=== PATIENT | male | born 1950 | race Caucasian/White ===

== ENCOUNTER → 2023-07-20 07:09 | Outpatient (REF) | payer MEDICARE, OTHER, SELFPAY ==
[2023-07-20 10:15] LABS: ALT (SGPT) 20 U/L (0-50); AST (SGOT) 24 U/L (17-59); Albumin 3.8 g/dl (3.5-5.0); Alkaline Phosphatase 112 U/L (38-126); Blood Urea Nitrogen 35 mg/dl (9-20); Carbon Dioxide 24 mmol/L (22-30); Chloride 104 mmol/L (98-107); Glucose 98 mg/dl (70-99); HDL Cholesterol 41 mg/dl; LDL Cholesterol, Calculated 34 mg/dl; Potassium 4.8 mmol/L (3.5-5.1); Sodium 138 mmol/L (135-145); Total Bilirubin 1.1 mg/dl (0.2-1.3); Total Cholesterol 92 mg/dl (50-199); Total Protein 7.3 g/dl (6.3-8.2); Triglyceride 87 mg/dl (10-149); Very Low Density Lipoprotein 17 mg/dl (0-30); eGFR 48.55
[2023-07-20 10:52] LABS: TSH 2.43 uIU/ml (0.47-4.68)
[2023-07-20 10:57] LABS: Microalbumin, Random Urine 31.1 mg/dl (0.6-1.7); Microalbumin/creatinine Ratio 202.7 mg/g
[2023-07-22 07:03] LABS: Fructosamine 272 umol/L (205-285)
== END ==
LOC: HWLAB 07:09
PROVIDERS: ATTENDING PHYSICIAN Internal Medicine; FAMILY PHYSICIAN Physician Assistant Medical
DX: E55.9 Vitamin D deficiency, unspecified (principal); E22.1 Hyperprolactinemia; Z79.4 Long term (current) use of insulin; E11.9 Type 2 diabetes mellitus without complications
CPT/HCPCS: 36415; 80053; 80061; 82043; 82306; 82570; 82985; 83036; 84443

== ENCOUNTER → 2023-08-31 10:46 | Outpatient (REF) | payer MEDICARE, OTHER, SELFPAY | LOC: RAD 10:46 | PROVIDERS: ATTENDING PHYSICIAN Surgery Vascular Surgery; FAMILY PHYSICIAN Physician Assistant Medical | DX: I73.9 Peripheral vascular disease, unspecified (principal) | CPT/HCPCS: 93922; 93925 ==

== ENCOUNTER → 2023-09-05 10:36 | Outpatient (REF) | payer MEDICARE, OTHER, SELFPAY ==
[2023-09-05 12:00] LABS: Urine Albumin 1+ (Neg - Trace); Urine Bilirubin Negative (Negative); Urine Character Clear (Clear); Urine Color Yellow; Urine Glucose Negative (Negative); Urine Ketone Negative (Negative); Urine Leukocyte 2+ (Negative); Urine Nitrite Negative (Negative); Urine Occult Blood Negative (Negative); Urine Urobilinogen Negative (Neg - 1+); Urine pH 6.5 (5.0-9.0)
[2023-09-05 12:16] LABS: Blood Urea Nitrogen 40 mg/dl (9-20); Calcium 9.5 mg/dl (8.4-10.2); Carbon Dioxide 26 mmol/L (22-30); Chloride 101 mmol/L (98-107); Glucose 142 mg/dl (70-99); Phosphorus 4.1 mg/dl (2.5-4.5); Potassium 5.1 mmol/L (3.5-5.1); Sodium 138 mmol/L (135-145); eGFR 52.74
[2023-09-05 12:37] LABS: Urine Bacteria Few (Negative); Urine Red Blood Cell 0-2 /HPF (0-2)
[2023-09-05 12:39] LABS: Urine Amorphous Seen
[2023-09-05 13:32] LABS: Protein/creatinine Ratio 0.8; Urine Protein 85 mg/dl
[2023-09-06 09:45] LABS: Intact PTH 21.3 pg/ml (13.6-85.8)
== END ==
LOC: HWLAB 10:36
PROVIDERS: ATTENDING PHYSICIAN Specialist; FAMILY PHYSICIAN Physician Assistant Medical
DX: E78.2 Mixed hyperlipidemia (principal); E78.5 Hyperlipidemia, unspecified; I10 Essential (primary) hypertension; D64.9 Anemia, unspecified
CPT/HCPCS: 36415; 80048; 81003; 81015; 82570; 83970; 84100; 84156

== ENCOUNTER 2023-09-06 05:51 | Day surgery (SDC) | payer MEDICARE, OTHER, SELFPAY ==
[2023-09-06] VITALS (27 sets, daily range): BP systolic 88–123; BP diastolic 50–88; BMI 40.0
[2023-09-06] MEDS: NSS 500 IV (06:45)
--- NOTE | 2023-09-06 06:58 | W.SUR.PREOP ---
Pre-Operative Surgical Note
-
I have examined this patient prior to the performance of the scheduled procedure.
The patient's condition is unchanged from the time of the current History and
Physical and the patient is able to undergo the scheduled procedure.
[2023-09-06 07:00] LABS: Glucose - Point of Care 167 mg/dl (70-99)
[2023-09-06 07:01] LABS: Hematocrit 35.1 % (39.0-52.0); Hemoglobin 11.5 g/dL (13.0-18.0); Mean Corp Hgb Conc. 32.8 g/dL (33.0-37.0); Mean Corpuscular Hgb 27.1 pg (27.0-31.0); Mean Corpuscular Volume 82.8 fL (80.0-94.0); Mean Platelet Volume 10.1 fL (7.4-10.4); Platelet Count 258 10^3/uL (130-400); Red Blood Cell Count 4.24 10^6/uL (4.70-6.10); White Blood Cell Count 11.6 10^3/uL (4.8-10.8)
--- NOTE | 2023-09-06 07:10 | PTCARENOTE ---
Pt is here for LLE arteriogram. Pt's pulse ox is 86-92% on room air while laying comfortably in stretcher. Pt's lungs are clear. Pt denies SOB. No respiratory distress noted. Dr Castillo made aware. No further treatment ordered at this time. Awaiting to
be seen by anesthesia. Will continue to monitor.
[2023-09-06 07:12] LABS: INR 1.45; PT 17.5 Sec (11.4-14.6)
[2023-09-06 07:13] LABS: APTT 39.5 Sec (23.4-35.0)
[2023-09-06 07:14] LABS: Blood Urea Nitrogen 40 mg/dl (9-20); Calcium 9.2 mg/dl (8.4-10.2); Carbon Dioxide 25 mmol/L (22-30); Chloride 102 mmol/L (98-107); Estimated Creatinine Clearance 59 ml/min; Glucose 161 mg/dl (70-99); Potassium 4.8 mmol/L (3.5-5.1); Sodium 138 mmol/L (135-145); eGFR 57.65
--- NOTE | 2023-09-06 07:31 | PTCARENOTE ---
Dr Liu also made aware of pt's pulse ox dropping in to 80's. Dr Liu at pt bedside and spoke/assessed pt. No further treatment ordered at this time. Will continue to monitor.
--- NOTE | 2023-09-06 08:58 | W.SUR.POST ---
Surgical Immediate Post Op
Note
Pre Op Diagnosis: PAD and nonhealing wound
Post Op Diagnosis: PAD and nonhealing wound
Procedure Performed: Left lower extremity arteriogram with angioplasty and stent to SFA and angioplasty to PT
Primary Surgeon: Cash Castillo MD
Secondary Surgeons: N/A
Anesthesia: MAC
Estimated Blood Loss: Less than 2 mL
Fluids: See anesthesia flowsheet
Drains/Shunts: N/A
Specimens/Cultures: N/A
Doppler/Duplex/Angio (Y/N): Y
Complications: None
Operative Findings: Doppler signal to left DP and PT
[2023-09-06 09:43] LABS: Glucose - Point of Care 174 mg/dl (70-99)
--- NOTE | 2023-09-06 09:58 | OR.RPT ---
Operative Report
Operative Report
PROCEDURE DATE: 09/06/2023
Preoperative diagnosis: Peripheral arterial disease with left first toe significant ulceration/tissue loss.
Postoperative diagnosis: Same
Procedure:
1. Duplex assisted right common femoral artery cannulation.
2. Aortogram and pelvic angiogram.
3. Left lower extremity arteriogram with third order vessel catheterization of left posterior tibial artery via right common femoral artery puncture.
4. Balloon angioplasty and stent placement with Invidiolver PTX overlapping stents 6 mm x 140 mm and 6 mm x 40 mm left superficial femoral artery.
5. Balloon angioplasty of left posterior tibial artery.
6. Right femoral angiogram.
7. Supervision and interpretation.
Surgeon: Jonathan
Marketing Director Assisted Living: None
Complications: None
Anesthesia: Local, sedation
Fluoroscopy:
13.4 min
274 mGy
56.95 Gy.cm2
Indications for procedure:
As noted above patient with left first toe significant ulceration/tissue loss. At the time of the procedure it was noted to be making strides towards healing. However given findings suggestive of peripheral arterial disease, we recommended
continuing with angiogram as initially recommended. Risk/benefits/alternatives all fully discussed prior. He understood all wish to proceed.
Description of procedure:
Patient was identified, brought to the operating room. Placed on the table in the supine position. After the adequate administration of anesthesia, the patient was prepped and draped in the standard surgical fashion. A standard preoperative
timeout was undertaken and everybody was in agreement with the plan.
The right common femoral artery was accessed with a micropuncture kit under direct duplex ultrasound guidance. Note based on his habitus it was quite a distance to the artery in terms of depth. A 5 [place] sheath was then advanced over a 0.035 inch
wire, and a dior's hook catheter was advanced into the abdominal aorta. Aortogram and pelvic angiogram was obtained. Findings as follows:
Patent infrarenal aorta and bilateral common and external iliac arteries without any evidence of significant stenosis. Moderate calcified plaque eccentrically noted throughout these vessels.
Using a floppy angled hydrophilic wire, the left common femoral artery was cannulated and the catheter was advanced. Left lower extremity arteriogram was obtained. Findings as follows:
Common femoral artery: Patent with no significant stenosis but diffuse eccentric calcified plaque.
Profunda femoris artery: Patent with no significant stenosis, but eccentric plaque noted.
Superficial femoral artery: Patent with no significant stenosis proximally, but diffuse eccentric plaque noted. In the mid to distal segment there was heavy bulky calcified plaque with opacity noted. The mid segment was the most pronounced. There
appeared to be significant stenosis in this vicinity. At the very distal SFA proximal to the transition to the above-knee popliteal artery there was more normalization of the caliber of the vessel and the appearance.
Popliteal artery: Moderate opacity with popcorn like plaques but no definitive high-grade stenosis.
Anterior tibial artery: Severely diseased throughout its course. Slow filling. Generally diminutive and areas of severe stenosis or occlusion in the midsegment and then again more distally. Cross the ankle to become the dorsalis pedis, but the
diseased small calcified dorsalis pedis noted.
Tibial peroneal trunk: Patent with no significant stenosis.
Peroneal artery: Chronically occluded, trickle flow in some segments.
Posterior tibial artery: Patent, somewhat small in size due to heavy calcification. 1 focal area in the proximal third of the vessel with severe focal stenosis/focal occlusion. Patent to the ankle where it crossed the ankle and gave rise to the
plantar branches but these were very diseased branches. General perfusion to the toes was very limited from both the dorsalis pedis and posterior tibial/plantar branches.
At this point I selectively cannulated the left superficial femoral artery and then exchanged for a 6 [place] up and over sheath over a Storq wire. The patient was given a total of 9000 units of intravenous heparin. Next under roadmap assisted
guidance I traverse the area of severe SFA stenosis/plaque in the mid to distal segment. I then exchanged back for my Storq wire and then primarily stented that region using a 6 mm x 140 mm, and then a 6 mm x 40 mm overlapping Zilver PTX
drug-eluting self-expanding stent. These were post angioplastied with a 5 mm balloons. Completion angiogram demonstrated an excellent result. Next, again using roadmap assistance, is able to selectively cannulate the right posterior tibial
artery. I did this with a 0.014 inch echo steerable wire. Next, also under roadmap guidance I was able to traverse the area of severe stenosis/occlusion focally. I then performed balloon angioplasty of the stenotic area with a 2 mm x 4 cm
standard angioplasty balloon. Completion angiogram demonstrated excellent result with no residual stenosis in that segment. Preserve flow in the runoff. At this point I was satisfied. Though there was disease in the anterior tibial, I felt that
it was diffusely diseased and likely not as effective to try to angioplasty that thoroughly. In addition since he was making strides towards healing the toe wound (had made significant progress and was nearly healed at the time of the angiography),
I felt that being overly aggressive may carry more risk. Therefore I did not attempt to treat the anterior tibial artery. Over a 0.035 inch wire the sheath was withdrawn to the right external iliac artery. Right femoral angiogram demonstrated
good puncture in the right common femoral artery. At this point I tried to advance a Pro-glide percutaneous suture to seal the puncture site. However I could not advance a Pro-glide due to the depth of puncture in his artery the Pro-glide Kinking
at the entry site of the artery. I could not advance it to the appropriate degree. I tried even advancing it over the wire but that did not work as well. Therefore at this point I exchanged back for a 6 [place] sheath. The wires and introducer of
the sheath were withdrawn. The patient was given some protamine to reverse the heparin and the sheath was withdrawn and manual pressure was applied. Hemostasis was achieved. The patient tolerated procedure well. He had dopplerable DP and PT
signals upon completion.
The patient tolerated procedure well.
[2023-09-06] MEDS: ASPIR LOW (ENTERIC COATED) 81 MG PO (10:44)
[2023-09-06] MEDS: NSS 1000 IV (10:46)
[2023-09-06 12:33] LABS: Glucose - Point of Care 145 mg/dl (70-99)
== END 2023-09-06 15:35 | disposition home or self-care (01) ==
LOC: CATH 05:51
PROVIDERS: ATTENDING PHYSICIAN Surgery Vascular Surgery; FAMILY PHYSICIAN Physician Assistant Medical
DX: I70.245 Atherosclerosis of native arteries of left leg with ulceration of other part of foot (principal); L97.529 Non-pressure chronic ulcer of other part of left foot with unspecified severity; I73.9 Peripheral vascular disease, unspecified; Z79.01 Long term (current) use of anticoagulants; I10 Essential (primary) hypertension; I25.2 Old myocardial infarction; Z86.73 Personal history of transient ischemic attack (TIA), and cerebral infarction without residual deficits; E78.00 Pure hypercholesterolemia, unspecified; E10.9 Type 1 diabetes mellitus without complications; Z79.4 Long term (current) use of insulin; I48.20 Chronic atrial fibrillation, unspecified; I25.10 Atherosclerotic heart disease of native coronary artery without angina pectoris; J44.9 Chronic obstructive pulmonary disease, unspecified; Z87.891 Personal history of nicotine dependence
CPT/HCPCS: 37226; 37228; 75625; 75716; 76937; 80048; 82962; 85027; 85610; 85730; 86850; 86900; 86901; C1725; C1760; C1769; C1874; C1887; C1894; Q9967

== ENCOUNTER 2023-09-10 12:28 | Inpatient (IN) | payer MEDICARE, OTHER, SELFPAY ==
[2023-09-10] VITALS (15 sets, daily range): BP systolic 112–168; BP diastolic 68–113; PULSE 2–92; BMI 42.4
--- NOTE | 2023-09-10 07:50 | ED.GENMED ---
History of Present Illness
<Nathaniel Bennett PA-C - Last Filed: 09/10/23 13:43>
General
Chief Complaint: Breathing Problem
Time Seen by Provider: 09/10/23 07:40
History of Present Illness
History of Present Illness:
72-year-old male with history of chronic atrial fibrillation on Eliquis, coronary artery disease/MD, hypertension, hyperlipidemia, COPD and insulin-dependent diabetes presents to the emergency department for evaluation of shortness of breath
beginning last night. Reports dyspnea on exertion as well as orthopnea. Noted to have oxygen saturation of 86% by EMS and placed on 4 L nasal cannula. He states he is improved on oxygen but still feels short of breath. Denies any associated
chest pain. Notes chills last night but denies fevers or night sweats. No coughing, nausea, or vomiting. He is 4 days status post left lower extremity arteriogram with balloon angioplasty and stent placement in the left superficial femoral artery
and balloon angioplasty of the left posterior tibial artery. He has resumed his blood thinners after that procedure.
Past History
<Nathaniel Bennett PA-C - Last Filed: 09/10/23 13:43>
Past History
ED Past Medical History: CAD, IDDM, Other (Spinal stenosis, IBS) and Other (Afib)
ED Past Surgical History: Orthopedic
Social History
Tobacco: Former smoker
Alcohol: Occasional
Drug: None
Personal:
Living: with family
Employment: Employed
Family History
Family History: Diabetes
Review of Systems
<Nathaniel Bennett PA-C - Last Filed: 09/10/23 13:43>
Review of Systems
Allergies reviewed?: Yes
All Other Systems: ROS reviewed and negative except as documented in HPI and ROS
Phy Exam
<Nathaniel Bennett PA-C - Last Filed: 09/10/23 13:43>
Physical Exam
Physical Exam:
GEN: Well appearing, NAD, WDWN
Eyes: PERRLA, EOMs intact, no scleral icterus
HENT: NCAT, oral mucosa moist
Lungs: Tachypneic with conversational dyspnea while on oxygen
Cardiac: Irregular and tachycardic
Abdomen: S, NT, ND, NABS, no masses or hepatosplenomegaly
Neuro: AO x 3
MSK: No gross deformity or ecchymosis. No edema. No digital clubbing
Skin: No rashes, petechiae. Normal color, no pallor or jaundice.
Psych: Calm, cooperative, proper hygiene
Scores
<Nathaniel Bennett PA-C - Last Filed: 09/10/23 13:43>
Heart Failure Risk
Heart Failure Risk Score: Yes
History of Stroke or TIA: No
History of intubation for respiratory distress: No
Heart rate on ED arrival >/= 110: Yes
SaO2 <90% on arrival on room air: Yes
HR >/=110 during 3min walk test (or too ill to perform test): Yes
ECG has acute ischemic changes: No
Urea >/=12mmol/L (BUN 33.6mg/dL): No
Serum CO2>/=35mmol/L: No
Troponin I or T elevated to MD Level (0.4mg/dL): No
NT-proBNP >/=5,000ng/L (5,000pg/ml): No
HF Risk Score: 3
Admission Status: HIGH RISK 15.9% Consider SNF treatment or admission to hospital
Course
<Nathaniel Bennett PA-C - Last Filed: 09/10/23 13:43>
Orders/Labs/Results
Orders:
Orders
09/10/23 07:40
Electrocardiogram (*1) Urgent
Reason for Study: Shortness of Breath
09/10/23 07:41
EKG- Treatment ONCE
09/10/23 07:49
CR Chest - 2 Views Urgent
Comment:
Reason For Exam: SOB, hypoxia
09/10/23 07:53
CMP [Comprehensive Metabolic Panel] Urgent
COVID-19 Antigen Urgent
Source: Nasal Swab
Complete Blood Count/With Diff Urgent
NT-proBNP Urgent
Troponin I Urgent
Influenza A+B Rapid Molecular Urgent
MARIALUISA Source: Nasal Swab
Specimen Description:
09/10/23 08:19
PTT Routine
Prothrombin Time Routine
09/10/23 09:03
Furosemide [Lasix] 40 mg IV ONCE ONE
09/10/23 09:43
CARDIOLOGY CONSULT Routine
Consulting Provider: Alexander Mcintosh
Was physician already notified: Yes
Reason for consult: HFrEF exacerbation with hypoxia, needing BiPAP
09/10/23 Lunch
2200 calorie (18 carb) Diabetic
Fluid Restriction: 1920 mL/day (64 oz)
Diabetic Diet: Sodium, 2 Gram
09/10/23 10:53
Admit/Transfer Patient As Directed
Co-Sign Provider:
Level of Care: Inpatient admission
Assign to:: IMU- Intermediate Care
Physician / Group: Dr. Bhupinder Quiñones/Hospitalists
Diagnosis: Acute Hypoxic Respiratory Failure
Reason for Hospitalization: Acute Hypoxic Respiratory Failure
Expected length of stay greater than two midnights?: Yes
ELOS- Estimated Length of Stay in days: 3
I certify the patient meets the requirements for IP care: Yes
PULMONARY CONSULT Routine
Consulting Provider: Glo Argueta
Was physician already notified: Yes
Reason for consult: Acute Resp Failure, has COPD, sees [facility] pulm
09/10/23 10:56
Code Status As Directed
Resuscitation Status: Full Code
09/10/23 11:00
Dextrose 50%-Water [Dextrose 50% Syringe] 12.5 grams IV [id number] PRN
Glucagon [GlucaGen] 1 mg IM PRN PRN
Bedside Glucose Monitoring As Directed
Frequency: AC&HS
Additional Instructions:: Change to q6h if pt on TPN, tube feeding or not eating
09/10/23 11:01
WOUND/OSTOMY CONSULT Routine
Reason for Consult: Wound care for lower extremities
09/10/23 11:30
Insulin Aspart Corrective Low [Novolog Flexpen-Low Resistance] See Protocol SC AC
09/10/23 13:01
Albuterol [ProAIR HFA INHALER] 2 puff INH R Q6HPRN PRN
Bisacodyl [Dulcolax] 10 mg RECTAL U45PRIT PRN
Dicyclomine [Bentyl] 20 mg PO DAILYPRN PRN
Docusate W/Senna [Senokot-S] 1 tablet PO BIDPRN PRN
Polyethylene Glycol Powder [Miralax] 17 grams PO DAILYPRN PRN
09/10/23 13:01
Activity As Directed
Activity Level: As Tolerated
Intake/ Output As Directed
Frequency: q12h
Vital Signs As Directed
Frequency: Per unit guidelines
Weight As Directed
Frequency: Daily
O2 Therapy [RESP] Routine
Titrate/Wean O2 to maintain O2 sat greater than (%): 89
09/10/23 14:00
Troponin I Q6H
Lisinopril [Zestril] 5 mg PO NOON
Multivitamin [Theragran] 1 tablet PO NOON
09/10/23 16:00
Furosemide [Lasix] 40 mg IV BID AT 0800,1600
09/10/23 20:00
Troponin I Q6H
Apixaban [Eliquis] 5 mg PO BID
nystatin 1 applic TOPICAL BID
09/10/23 22:00
Famotidine [Pepcid] 20 mg PO HS
09/11/23 02:00
Troponin I Q6H
09/11/23 06:00
Complete Blood Count/With Diff IN AM
Comprehensive Metabolic Panel IN AM
Glycohemoglobin (HgbA1c) IN AM
Magnesium IN AM
09/11/23 08:00
Aspirin Low Dose EC [Aspir Low (Enteric Coated)] 81 mg PO DAILY
Atorvastatin [Lipitor] 20 mg PO DAILY
Bifidobacterium infantis [Align] 4 mg PO DAILY
Cholecalciferol (Vitamin D3) [VITAMIN D3 (cholecalciferol)] 25 mcg PO DAILY
Metoprolol Xl [Toprol Xl] 25 mg PO DAILY
umeclidinium-vilanterol [Anoro Ellipta] 1 inh INH DAILY
09/12/23 06:00
Complete Blood Count/With Diff IN AM
Comprehensive Metabolic Panel IN AM
09/13/23 06:00
Complete Blood Count/With Diff IN AM
Comprehensive Metabolic Panel IN AM
Abnormal Lab Results
09/10/23 09/10/23 09/10/23
07:53 08:19 12:05
WBC 12.1 H 10^3/uL
(4.8-10.8)
RBC 4.02 L 10^6/uL
(4.70-6.10)
Hgb 10.9 L g/dL
(13.0-18.0)
Hct 34.0 L %
(39.0-52.0)
MCHC 32.1 L g/dL
(33.0-37.0)
RDW 18.5 H %
(11.5-14.5)
MPV 10.6 H fL
(7.4-10.4)
Abs Immat Gran (auto) 0.1 H 10^3/uL
(0-0.05)
Absolute Neuts (auto) 9.8 H 10^3/uL
(1.4-6.5)
Neutrophils % 80.9 H %
(42.2-75.2)
Lymphocytes % 11.2 L %
(20.5-51.1)
PT 21.1 H Sec
(11.4-14.6)
APTT 38.4 H Sec
(23.4-35.0)
Carbon Dioxide 19 L mmol/L
(22-30)
BUN 36 H mg/dl
(9-20)
Glucose 204 H mg/dl
(70-99)
Total Bilirubin 1.4 H mg/dl
(0.2-1.3)
Alkaline Phosphatase 129 H U/L
(38-126)
POC Glucose 178 H mg/dl
(70-99)
09/10/23 07:53
09/10/23 07:53
Vital Signs
Initial and Last Documented VS:
Initial Vital Signs
Pulse Resp BP Pulse Ox
100 97 160/93 96
09/10/23 07:31 09/10/23 07:31 09/10/23 07:31 09/10/23 07:31
Last Documented Vital Signs
Pulse Resp BP Pulse Ox
76 21 149/113 99
09/10/23 12:15 09/10/23 12:15 09/10/23 12:00 09/10/23 12:15
<Hosea Lester MD - Last Filed: 09/10/23 10:02>
Orders/Labs/Results
Orders:
Orders
09/10/23 07:40
Electrocardiogram (*1) Urgent
Reason for Study: Shortness of Breath
09/10/23 07:41
EKG- Treatment ONCE
09/10/23 07:49
CR Chest - 2 Views Urgent
Comment:
Reason For Exam: SOB, hypoxia
09/10/23 07:53
CMP [Comprehensive Metabolic Panel] Urgent
COVID-19 Antigen Urgent
Source: Nasal Swab
Complete Blood Count/With Diff Urgent
NT-proBNP Urgent
Troponin I Urgent
Influenza A+B Rapid Molecular Urgent
MARIALUISA Source: Nasal Swab
Specimen Description:
09/10/23 08:19
PTT Routine
Prothrombin Time Routine
09/10/23 09:03
Furosemide [Lasix] 40 mg IV ONCE ONE
09/10/23 09:43
CARDIOLOGY CONSULT Routine
Consulting Provider: Alexander Mcintosh
Was physician already notified: Yes
Reason for consult: HFrEF exacerbation with hypoxia, needing BiPAP
09/10/23 Lunch
2200 calorie (18 carb) Diabetic
Fluid Restriction: 1920 mL/day (64 oz)
Diabetic Diet: Sodium, 2 Gram
09/10/23 10:53
Admit/Transfer Patient As Directed
Co-Sign Provider:
Level of Care: Inpatient admission
Assign to:: IMU- Intermediate Care
Physician / Group: Dr. Bhupinder Quiñones/Hospitalists
Diagnosis: Acute Hypoxic Respiratory Failure
Reason for Hospitalization: Acute Hypoxic Respiratory Failure
Expected length of stay greater than two midnights?: Yes
ELOS- Estimated Length of Stay in days: 3
I certify the patient meets the requirements for IP care: Yes
PULMONARY CONSULT Routine
Consulting Provider: Glo Argueta
Was physician already notified: Yes
Reason for consult: Acute Resp Failure, has COPD, sees [facility] pulm
09/10/23 10:56
Code Status As Directed
Resuscitation Status: Full Code
09/10/23 11:00
Dextrose 50%-Water [Dextrose 50% Syringe] 12.5 grams IV [id number] PRN
Glucagon [GlucaGen] 1 mg IM PRN PRN
Bedside Glucose Monitoring As Directed
Frequency: AC&HS
Additional Instructions:: Change to q6h if pt on TPN, tube feeding or not eating
09/10/23 11:01
WOUND/OSTOMY CONSULT Routine
Reason for Consult: Wound care for lower extremities
09/10/23 11:30
Insulin Aspart Corrective Low [Novolog Flexpen-Low Resistance] See Protocol SC AC
09/10/23 13:01
Albuterol [ProAIR HFA INHALER] 2 puff INH R Q6HPRN PRN
Bisacodyl [Dulcolax] 10 mg RECTAL [id number] PRN
Dicyclomine [Bentyl] 20 mg PO DAILYPRN PRN
Docusate W/Senna [Senokot-S] 1 tablet PO BIDPRN PRN
Polyethylene Glycol Powder [Miralax] 17 grams PO DAILYPRN PRN
09/10/23 13:01
Activity As Directed
Activity Level: As Tolerated
Intake/ Output As Directed
Frequency: q12h
Vital Signs As Directed
Frequency: Per unit guidelines
Weight As Directed
Frequency: Daily
O2 Therapy [RESP] Routine
Titrate/Wean O2 to maintain O2 sat greater than (%): 89
09/10/23 14:00
Troponin I Q6H
Lisinopril [Zestril] 5 mg PO NOON
Multivitamin [Theragran] 1 tablet PO NOON
09/10/23 16:00
Furosemide [Lasix] 40 mg IV BID AT 0800,1600
09/10/23 20:00
Troponin I Q6H
Apixaban [Eliquis] 5 mg PO BID
nystatin 1 applic TOPICAL BID
09/10/23 22:00
Famotidine [Pepcid] 20 mg PO HS
09/11/23 02:00
Troponin I Q6H
09/11/23 06:00
Complete Blood Count/With Diff IN AM
Comprehensive Metabolic Panel IN AM
Glycohemoglobin (HgbA1c) IN AM
Magnesium IN AM
09/11/23 08:00
Aspirin Low Dose EC [Aspir Low (Enteric Coated)] 81 mg PO DAILY
Atorvastatin [Lipitor] 20 mg PO DAILY
Bifidobacterium infantis [Align] 4 mg PO DAILY
Cholecalciferol (Vitamin D3) [VITAMIN D3 (cholecalciferol)] 25 mcg PO DAILY
Metoprolol Xl [Toprol Xl] 25 mg PO DAILY
umeclidinium-vilanterol [Anoro Ellipta] 1 inh INH DAILY
09/12/23 06:00
Complete Blood Count/With Diff IN AM
Comprehensive Metabolic Panel IN AM
09/13/23 06:00
Complete Blood Count/With Diff IN AM
Comprehensive Metabolic Panel IN AM
Abnormal Lab Results
09/10/23 09/10/23 09/10/23
07:53 08:19 12:05
WBC 12.1 H 10^3/uL
(4.8-10.8)
RBC 4.02 L 10^6/uL
(4.70-6.10)
Hgb 10.9 L g/dL
(13.0-18.0)
Hct 34.0 L %
(39.0-52.0)
MCHC 32.1 L g/dL
(33.0-37.0)
RDW 18.5 H %
(11.5-14.5)
MPV 10.6 H fL
(7.4-10.4)
Abs Immat Gran (auto) 0.1 H 10^3/uL
(0-0.05)
Absolute Neuts (auto) 9.8 H 10^3/uL
(1.4-6.5)
Neutrophils % 80.9 H %
(42.2-75.2)
Lymphocytes % 11.2 L %
(20.5-51.1)
PT 21.1 H Sec
(11.4-14.6)
APTT 38.4 H Sec
(23.4-35.0)
Carbon Dioxide 19 L mmol/L
(22-30)
BUN 36 H mg/dl
(9-20)
Glucose 204 H mg/dl
(70-99)
Total Bilirubin 1.4 H mg/dl
(0.2-1.3)
Alkaline Phosphatase 129 H U/L
(38-126)
POC Glucose 178 H mg/dl
(70-99)
09/10/23 07:53
09/10/23 07:53
Vital Signs
Initial and Last Documented VS:
Initial Vital Signs
Pulse Resp BP Pulse Ox
100 97 160/93 96
09/10/23 07:31 09/10/23 07:31 09/10/23 07:31 09/10/23 07:31
Last Documented Vital Signs
Pulse Resp BP Pulse Ox
76 21 149/113 99
09/10/23 12:15 09/10/23 12:15 09/10/23 12:00 09/10/23 12:15
<Nathaniel Bennett PA-C - Last Filed: 09/10/23 13:43>
MDM/Problems Addressed
MDM/Problems Addressed:
Symptoms most consistent with acute CHF with reduced ejection fraction evidenced by hypoxia with vascular congestion on chest x-ray and elevated proBNP. Patient is anticoagulated and has no chest pain thus I do not suspect pulmonary embolism
despite his brief cessation of Eliquis for arterial procedure earlier in the week. Patient started on IV diuretics, had abrupt onset of worsening shortness of breath that improved after promptly being placed on BiPAP. Will be admitted to the
hospitalist service
<Nathaniel Bennett PA-C - Last Filed: 09/10/23 13:43>
Comment
Comment:
EKG independently interpreted by me shows a rapid atrial fibrillation at a rate of 106 with a right bundle branch block, no ischemic changes noted
*Critical Care Note
Total Time (30-74mins, 75-104mins- exclusive of procedures): Not Applicable
<Nathaniel Bennett PA-C - Last Filed: 09/10/23 13:43>
Update Note
Update Note:
926: Staff emergency called due to pt displaying acute respiratory distress. Pt reportedly attempted to stand to use the restroom and became increasingly SOB. Noted to be tachypneic and tachycardic, still without gross rales on exam. Will call
respiratory for bipap
944: Pt reassessed on bipap 18/07. Respiratory effort improved, tolerating bipap well. Hospitalist updated
ED Attending Note
<Nathaniel Bennett PA-C - Last Filed: 09/10/23 13:43>
-
Portions of this chart may have been created with voice recognition software.� Occasional wrong word or��sound alike� substitutions may have occurred due to the inherent limitations of voice recognition software.
<Hosea Lester MD - Last Filed: 09/10/23 10:02>
ED Attending Note
Patient seen and examined by attending physician: Yes
I performed the substantive portion of visit, reviewed & personally made and approve the management plan that is documented in note by myself or CRISTAL.: Yes
ED Attending Note:
Progressive shortness of breath since last evening. No chest pain no back pain. Symptoms are moderate in nature. Patient had a recent catheterization for peripheral arterial disease.
On exam patient is currently on BiPAP. However alert and able to speak. Lungs mild tachypnea with some rales. Heart irregular irregular. Borderline tachycardia. Abdomen elevated BMI. Soft nontender. Ecchymosis to the groin area. Chronic
lower extremity changes.
Lab test show A-fib/RVR, elevated proBNP CHF on x-ray. Patient does respond to BiPAP. Admitted to medicine
Discharge Plan
Departure
Patient Disposition: Admit
Date of Disposition: 09/10/23
Time of Disposition: 09:04
Admit to: Telemetry
Presentation/result/management discussed w/ accepting MD/DO: Hospitalist
Discharge Problem:
Acute HFrEF (heart failure with reduced ejection fraction)
Interventions
Interventions:
*Risk Screen - Suicide Last Done: 09/10/23 07:31
*General Assessment Last Done: 09/10/23 07:31
*Neglect/Abuse Screening Last Done: 09/10/23 07:31
ED- Fall Risk Assessment Last Done: 09/10/23 07:31
*ED COVID-19 Vaccine History Last Done: 09/10/23 07:31
*Nursing Disposition Last Done: 09/10/23 13:05
ED- Cardiac Assessment Last Done: 09/10/23 07:31
ED- Pulmonary Assessment Last Done: 09/10/23 07:31
Discharge Date and Time
Discharge Date/Time: 09/10/23 13:11
[2023-09-10 08:04] LABS: % Basophils 0.2 % (0-2); % Eosinophils 2.1 % (0-6); % Immature Granulocytes 0.5 % (0-0.5); % Lymphocytes 11.2 % (20.5-51.1); % Monocytes 5.1 % (1.7-9.3); % Neutrophils 80.9 % (42.2-75.2); Absolute Eosinophils 0.3 10^3/uL (0-0.7); Absolute Immature Granulocytes 0.1 10^3/uL (0-0.05); Absolute Lymphocytes 1.4 10^3/uL (1.2-3.4); Absolute Monocytes 0.6 10^3/uL (0.1-0.6); Absolute Neutrophils 9.8 10^3/uL (1.4-6.5); Hemoglobin 10.9 g/dL (13.0-18.0); Mean Corp Hgb Conc. 32.1 g/dL (33.0-37.0); Mean Corpuscular Hgb 27.1 pg (27.0-31.0); Mean Corpuscular Volume 84.6 fL (80.0-94.0); Mean Platelet Volume 10.6 fL (7.4-10.4); Nucleated Red Blood Cells % 0 % (-); Platelet Count 214 10^3/uL (130-400); Red Blood Cell Count 4.02 10^6/uL (4.70-6.10); Red Cell Dist. Width 18.5 % (11.5-14.5); White Blood Cell Count 12.1 10^3/uL (4.8-10.8)
[2023-09-10 08:17] LABS: ALT (SGPT) 22 U/L (0-50); AST (SGOT) 26 U/L (17-59); Albumin 3.9 g/dl (3.5-5.0); Alkaline Phosphatase 129 U/L (38-126); Blood Urea Nitrogen 36 mg/dl (9-20); Calcium 8.6 mg/dl (8.4-10.2); Carbon Dioxide 19 mmol/L (22-30); Chloride 107 mmol/L (98-107); Estimated Creatinine Clearance 72 ml/min; Glucose 204 mg/dl (70-99); Sodium 138 mmol/L (135-145); Total Bilirubin 1.4 mg/dl (0.2-1.3); Total Protein 7.4 g/dl (6.3-8.2); eGFR > 60.00
[2023-09-10 08:19] LABS: COVID-19 Antigen Negative (Negative)
[2023-09-10 08:28] LABS: NT-proBNP 3590 pg/ml; Troponin I 0.023 ng/ml
[2023-09-10 08:37] LABS: APTT 38.4 Sec (23.4-35.0); INR 1.81; PT 21.1 Sec (11.4-14.6)
[2023-09-10] MEDS: LASIX 40 MG IV ×2 (09:06→16:53)
--- NOTE | 2023-09-10 09:39 | HPS.HSE ---
Family Physician
-
Family Physician: Beverly Malagon
Chief Complaint
-
Shortness of breath
History of Present Illness
72 y/o male with past medical history of chronic atrial fibrillation, heart failure, myocardial infarction, coronary artery disease, transient ischemic attack, peripheral vascular disease, COPD (not on home oxygen), type 1 diabetes mellitus,
hypertension, hyperlipidemia, spinal stenosis, degenerative joint disease, sleep apnea (not on home CPAP), obesity, COVID in July 2022, presented with shortness of breath starting last night. Patient says even with any movement his shortness of
breath came about and got worse. He denied any coughing, fever or chest pain.
Medical History
Past Medical History
Past Medical History: Reports Other (As per HPI above)
Past Surgical History: Reports Orthopedic and Other (Vascular Surgery)
Social History
Tobacco: Former Smoker
Alcohol: Occasional
Drug: None
Family History
Family History: Not pertinent
Allergies / Home Medications
Allergies reflects when Allergies were last updated in [facility].
Home Medications with original date entered in [facility]
Allergy/Medication List:
Allergies
Allergy/AdvReac Type Severity Reaction Status Date / Time
acetaminophen [From Percocet] Allergy Nausea Verified 09/06/23 06:33
adhesive tape Allergy BLISTERED Verified 09/06/23 06:33
hydromorphone [From Dilaudid] Allergy Nausea Verified 09/06/23 06:33
oxycodone HCl [From Percocet] Allergy Nausea Verified 09/06/23 06:33
STRONG PAIN MEDS Allergy Nausea Uncoded 09/06/23 06:31
Home Medications
metformin 1,000 mg tablet 1,000 mg PO BID 06/22/12
apixaban 5 mg tablet (Eliquis) 5 mg PO BID 06/03/15
cholecalciferol (vitamin D3) 25 mcg (1,000 unit) tablet 1,000 units PO DAILY 06/03/15
insulin aspart U-100 100 unit/mL subcutaneous solution (Novolog U-100 Insulin aspart) 7 - 20 units SC AC 06/03/15
lisinopril 5 mg tablet 5 mg PO NOON 06/03/15
Bifidobacterium infantis 4 mg capsule (Align) 4 mg PO DAILY 09/04/23
Tresiba U-100 Insulin 44 units SC DAILY 09/04/23
albuterol sulfate 90 mcg/actuation aerosol inhaler 2 puff inhalation Q6H PRN COPD 09/04/23
atorvastatin 20 mg tablet 20 mg PO DAILY 09/04/23
dicyclomine 20 mg tablet 20 mg PO DAILYPRN PRN IBS 09/04/23
famotidine 20 mg tablet 20 mg PO HS 09/04/23
furosemide 40 mg tablet 40 mg PO NOON 09/04/23
metoprolol succinate 25 mg tablet,extended release 24 hr 25 mg PO DAILY 09/04/23
multivitamin 1 tab PO NOON 09/04/23
umeclidinium 62.5 mcg-vilanterol 25 mcg/actuation powdr for inhalation (Anoro Ellipta) 1 inh inhalation DAILY 09/04/23
aspirin 81 mg tablet,delayed release 81 mg PO DAILY #90 tabs 09/06/23
nystatin 100,000 unit/gram topical powder 1 applic topical BID 09/06/23
Review of Systems
-
A 12 point ROS was completed and negative except as noted: Yes
Physical Exam
Vital Signs
Vital Signs
Pulse Resp BP Pulse Ox
98 34 149/68 91
09/10/23 09:15 09/10/23 09:15 09/10/23 09:06 09/10/23 09:15
Physical Exam
General: Morbidly Obese
HEENT: NormoCephalic, Moist mucous membranes and Atraumatic
Respiratory: Decreased Breath Sounds and Other (on BiPAP)
Cardiac: S1/S2 and Regular Rhythm
GI: Soft, Non Tender and Normal Bowel Sounds
Musculoskeletal: No Cyanosis, Edema, Left Lower Extremity and Edema, Right Lower Extremity
Skin: Warm and Dry
Neuro: Awake, Alert and AO x 3
Psych: Calm and Intact Judgment/Insight
Laboratory Results
-
09/10/23 07:53
09/10/23 07:53
Laboratory Results
PT 21.1 Sec (11.4-14.6) H 09/10/23 08:19
INR 1.81 09/10/23 08:19
APTT 38.4 Sec (23.4-35.0) H 09/10/23 08:19
Total Bilirubin 1.4 mg/dl (0.2-1.3) H 09/10/23 07:53
AST 26 U/L (17-59) 09/10/23 07:53
ALT 22 U/L (0-50) 09/10/23 07:53
Alkaline Phosphatase 129 U/L (38-126) H 09/10/23 07:53
Troponin I 0.023 ng/ml 09/10/23 07:53
Impression/Plan
-
Assessment/Plan
Acute Hypoxic Respiratory Failure
COPD -- not on home oxygen as per patient
History of CHF
Suspected CHF exacerbation
-Patient needing BiPAP and oxygen on admission
-Admit to and monitor in IMU
-Continue IV Lasix
-Daily weights and I's and O's
-Consulted cardiology, recommendations appreciated
-Not bronchospastic on exam so will hold off on steroids or azithromycin
-Continue home bronchodilators or inpatient equivalent
-Follow-up on CXR
-Consulted pulmonary given patient's history of COPD to evaluate for possible progression of COPD
Chronic atrial fibrillation
-Continue home Eliquis 5 mg BID
History of myocardial infarction
Coronary artery disease
Transient ischemic attack
Peripheral vascular disease
-Patient had left lower extremity arteriogram with angioplasty and stent to SFA and angioplasty to PT on September 06, 2023 (records are in [facility])
-Continue Aspirin, Statin, Eliquis
Type 1 diabetes mellitus
-Hold home oral diabetes medications for now and resume later later if renal function okay
-Continue Insulin Sliding Scale and Accuchecks
Hypertension
-Continue home Toprol XL 25 mg PO daily
Hyperlipidemia
-Continue Atorvastatin
Spinal stenosis
Degenerative joint disease
Sleep apnea (not on home CPAP)
Obesity
COVID in July 2022
Diet: Diabetic, Fluid-Restricted and Sodium-Restricted Diet
DVT Prophylaxis: On Eliquis
[2023-09-10] MEDS: NOVOLOG FLEXPEN-LOW RESISTANCE SC (12:00)
[2023-09-10 12:07] LABS: Glucose - Point of Care 178 mg/dl (70-99)
[2023-09-10] MEDS: NOVOLOG FLEXPEN-LOW RESISTANCE 1 UNITS SC ×2 (12:39→17:13)
--- NOTE | 2023-09-10 13:44 | CON.PUL ---
Consultation
Consultation Request
Date/Time Consultation Requested: 09/09
Date/Time Consultation Performed: 09/09
Reason for Consultation: Shortness of breath
Medical History
-
History of Present Illness:
History obtained from the patient, reviewing hospital records, outpatient records. Patient had recent angiogram per vascular surgery on 09/06/2023. He was told that his oxygen level was in the high 80s at that time. He has oximetry at home and
states that it is never that low. Yesterday he felt a little bit wheezy and more short of breath. Throughout the night last night, he was more short of breath. He typically sleeps in a recliner. He denies chest pain, change in cough, fevers,
lightheadedness,, palpitations, change in weight or swelling in the legs. For this reason he brought himself into [facility] [address]. He did note significant shortness of breath try to walk down the steps. Upon arrival to [facility] [address],
pulse 100, saturation 96%, blood pressure 160/93. Blood work revealed hemoglobin 10.9. He had a chest x-ray that was read as heart failure. COVID swab was negative, influenza swab negative. He was given 1 dose of Lasix and admitted for possible
heart failure. We are asked to comment on a component of COPD. Presently he is feeling symptoms are better.
He is relatively sedentary, primarily limited by back pain.
.
PMH: Hypertension, hyperlipidemia, history of coronary disease with TX, TIA 2012, diabetes, chronic atrial fibrillation, history of heart failure, peripheral vascular disease, COPD, sleep apnea failed CPAP therapy 30 years ago and again in 2022,
history of COVID July 2022, multiple nodules. History of right knee replacement 2014, cholecystostomy tube 2015
Past Medical History
Past Medical History: None (See above)
Past Surgical History: None (See above)
Social History
Tobacco: Former Smoker ([id number]-[id number], quit 1997)
Alcohol: None
Drug: None
Personal:
Living: With Family
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
Family History
Family History: Other (Father and mother , family history of breast cancer and diabetes. Father also had end-stage renal disease.)
Allergies / Home Medications
Allergies
Allergy/AdvReac Type Severity Reaction Status Date / Time
acetaminophen [From Percocet] Allergy Nausea Verified 09/06/23 06:33
adhesive tape Allergy BLISTERED Verified 09/06/23 06:33
hydromorphone [From Dilaudid] Allergy Nausea Verified 09/06/23 06:33
oxycodone HCl [From Percocet] Allergy Nausea Verified 09/06/23 06:33
STRONG PAIN MEDS Allergy Nausea Uncoded 09/06/23 06:31
Home Medications
�Medication �Instructions �Recorded �Confirmed �Last Taken �Type
metformin 1,000 mg tablet 1,000 mg PO BID 06/22/12 09/10/23 09/10/23 History
apixaban 5 mg tablet (Eliquis) 5 mg PO BID 06/03/15 09/10/23 09/10/23 History
cholecalciferol (vitamin D3) 25 1,000 units PO DAILY 06/03/15 09/10/23 2 Days Ago History
mcg (1,000 unit) tablet ~09/04/23
insulin aspart U-100 100 unit/mL 7 - 20 units SC AC 06/03/15 09/10/23 09/10/23 History
subcutaneous solution (Novolog
U-100 Insulin aspart)
lisinopril 5 mg tablet 5 mg PO NOON 06/03/15 09/10/23 09/06/23 04:30 History
Bifidobacterium infantis 4 mg 4 mg PO DAILY 09/04/23 09/10/23 3 Days Ago History
capsule (Align) ~09/03/23
albuterol sulfate 90 mcg/actuation 2 puff inhalation R Q6HPRN PRN COPD 09/04/23 09/10/23 6 Months Ago History
aerosol inhaler ~03/08/23
atorvastatin 20 mg tablet 40 mg PO DAILY 09/04/23 09/10/23 09/10/23 History
dicyclomine 20 mg tablet 20 mg PO DAILYPRN PRN IBS 09/04/23 09/10/23 3 Months Ago History
~06/07/23
famotidine 20 mg tablet 20 mg PO HS 09/04/23 09/10/23 09/04/23 22:00 History
furosemide 40 mg tablet 40 mg PO NOON 09/04/23 09/10/23 09/05/23 12:00 History
insulin degludec 100 unit/mL (3 45 unit SC DAILY ##0 09/04/23 09/10/23 09/10/23 History
mL) subcutaneous pen (Tresiba
FlexTouch U-100 insulin)
metoprolol succinate 25 mg 25 mg PO DAILY 09/04/23 09/10/23 09/10/23 History
tablet,extended release 24 hr
multivitamin 1 tab PO NOON 09/04/23 09/10/23 09/04/23 12:00 History
umeclidinium 62.5 mcg-vilanterol 1 inh inhalation R DAILY 09/04/23 09/10/23 09/05/23 09:00 History
25 mcg/actuation powdr for
inhalation (Anoro Ellipta)
aspirin 81 mg tablet,delayed 81 mg PO DAILY #90 tabs 09/06/23 09/10/23 09/10/23 Rx
release
nystatin 100,000 unit/gram topical 1 applic topical DAILY grion 09/06/23 09/10/23 09/05/23 09:00 History
powder
Review of Systems
Vitals / Labs / Diagnostic Testing
Vital Signs
Pulse Resp BP Pulse Ox
76 21 149/113 99
09/10/23 12:15 09/10/23 12:15 09/10/23 12:00 09/10/23 12:15
Lab Data
09/10/23 07:53
09/10/23 07:53
Laboratory Results
09/10/23 09/10/23
07:54 08:19
PT Cancelled 21.1 H
INR Cancelled 1.81
APTT Cancelled 38.4 H
Microbiology
09/10/23 07:53 Nasal Swab Influenza Types A & B (OSBALDO) - Final
Negative for Influenza A & B, NAAT
Negative results must be combined with clinical observations
and patient history.
Nucleic Acid Amplification test (NAAT)performed on the
[employer] ([employer]) platform.
Diagnostic Testing:
Physical Exam
-
HEENT: Normocephalic, Anicteric and Other (Large neck)
Cardiovascular: S1/S2, Regular Rhythm, Murmur (n), Rub (n), Peripheral Edema (1+) and Calf Tenderness (n)
Respiratory: Wheeze (n), Rales (n), Rhonchi (n), Non-Labored Respirations and Other (No egophony)
GI: Soft, Non Distended (Obese) and Non Tender
Neurology: Awake, Alert, Oriented and No Motor Deficits (Able to sit up but is generally weak)
Skin: Good Color and Other (No rash, no clubbing. Mild skin dryness and peeling of the left lower extremity, extremities are warm)
General: Comfortable
Assessment
-
72-year-old male with history of coronary disease with TX in the past, heart failure, atrial fibrillation, sleep apnea intolerant to CPAP with recent angiogram per vascular surgery 09/06/2023. At that time he was told his oxygen level was in the high
80s. He is asymptomatic. Over the last 24 to 48 hours he has noticed increased shortness of breath, particularly at nighttime. He denies roger PND but normally he sleeps in a recliner. His shortness of breath is worse at night versus during the
daytime. This morning, when walking up the steps he was short of breath which is unusual for him. For this reason he brought himself into [facility] [address]. Admitted for heart failure. We are asked to comment on compartment COPD
Acute hypoxic respiratory insufficiency
86% on room air
Bilateral infiltrates, suggestive of pulm edema
History of heart failure, cardiomyopathy
EF 40% per echocardiogram 2021
Mild leukocytosis
Conditions present prior to admission
Hypertension/hyperlipidemia
Morbid obesity
Left anterior fascicular block, chronic
History of atrial fibrillation
Coronary disease with history of TX 20+ years ago
History of TIA
Sleep apnea, failed CPAP 2021
Diabetes
Chronic DJD, back pain
[id number], quit
Plan/recommendations
At this time, patient appears to be comfortable. He is on 6 L, 97%.
On room air, he is 89%. I placed him back on 3 L
His chest exam is clear with no wheeze, crackles.
Per ED records, patient was tachypneic, conversational dyspnea. No comment on breath sounds
Moving forward
Difficult to distinguish between heart failure and COPD although presently chest exam is clear and chest x-ray suggest heart failure
Last echocardiogram was 2021, EF 40%. Patient follows cardiology (Kim)
He did receive Lasix therapy in the ER
To my knowledge he did not receive any steroid therapy
Elevated proBNP 3590 noted
Continue with diuresis
Cardiology has been consulted
Consider repeat echocardiogram in the next 24 hours but this will be deferred to cardiology
Other etiologies to consider include inflammatory pneumonitis.
Patient had COVID test and flu test which is negative
denies any symptoms concerning for infection
Given his symptoms primarily being nocturnal, suspect this is cardiac
Patient is at risk for thromboembolic disease, especially with recent procedure. This is less likely on Eliquis therapy.
Continue with outpatient therapy for COPD
Wean oxygen as able
Will follow as cardiac workup continues
--- NOTE | 2023-09-10 14:21 | CON.CAR ---
Addendum entered and electronically signed by Alexander Mcintosh MD 09/10/23 18:48:
I saw and examined the patient.
The resident's note was reviewed and I agree with the note.
Comment:
1. I agree that a good amount of his dyspnea is from acute HF.
2. LVEF on nuc was normal but an echo has shown EF in 40% range
3. Will update echo
4. Anticipate adjusting meds with: loop diuretic, SGLT-i, MRA, ARNI
5. Can contemplate elective ischemic evaluation, but prior imaging has showed fixed LAD distribution infarct.
6. HF education appropriate
Original Note:
Consultation
Consultation Request
Date/Time Consultation Requested: 09/10/23 9.43am
Date/Time Consultation Performed: 09/10/23 2.15pm
Requesting Provider: Bhupinder Quan
Performing Provider: Racquel De Leon for Alexander Vaughn
Reason for Consultation: Acute on chronic HF
Medical History
-
Chief Complaint: Shortness of breath x 1 day
History of Present Illness:
History obtained from patient and medical records.
72-year-old male with PMHx significant for persistent A-fib, chronic heart failure, MO, CAD, COPD, ERICK, Hypertension, type I DM, HLD, PAD presents to the office with sudden worsening shortness of breath x 1 day. Patient states that he always has a
baseline COPD not on any home oxygen, he just noticed that his shortness of breath started getting worse over the last 3 to 4 days, yesterday when he tried to get down flight of stairs in his home he was completely out of breath. He sat at the edge
of bed and could not breathe and has to be helped to use restroom by his family. He reports to have been fatigued over the last 1 week. He also reports to be sleeping in the recliner.
He denies having chest pain, chest discomfort, PND, nausea, vomiting, palpitations, syncope or near syncopal episodes, dizziness, lightheadedness. He also denies having bowel or bladder habit changes
States that he has been in hospital for COPD x 3 in the last year, had revasc in his left lower extremity for PAD a week ago, and was doing fine after the intervention.
Past Medical History
Past Medical History: Other (CAD with MO, TIA 2012, history of heart failure, PAD s/p stenting, COPD, ERICK-failed CPAP therapy twice, hypertension, type 1 diabetes mellitus, spinal stenosis, obesity)
Past Surgical History: Other (Cholecystectomy and total knee replacement.)
Social History
Tobacco: Smoker (57-xooq-kqsy smoking history quit smoking in 1997)
Alcohol: Occasional (2 beers a month)
Drug: None
Personal:
Living: With Family
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
Family History
Family History: Other (Breast cancer in mother, and diabetes, CKD in father.)
Allergies / Home Medications
Allergy/AdvReac Type Severity Reaction Status Date / Time
acetaminophen [From Percocet] Allergy Nausea Verified 09/06/23 06:33
adhesive tape Allergy BLISTERED Verified 09/06/23 06:33
hydromorphone [From Dilaudid] Allergy Nausea Verified 09/06/23 06:33
oxycodone HCl [From Percocet] Allergy Nausea Verified 09/06/23 06:33
STRONG PAIN MEDS Allergy Nausea Uncoded 09/06/23 06:31
�Medication �Instructions �Recorded �Confirmed �Type
metformin 1,000 mg tablet 1,000 mg PO BID 06/22/12 09/10/23 History
apixaban 5 mg tablet (Eliquis) 5 mg PO BID 06/03/15 09/10/23 History
cholecalciferol (vitamin D3) 25 1,000 units PO DAILY 06/03/15 09/10/23 History
mcg (1,000 unit) tablet
insulin aspart U-100 100 unit/mL 7 - 20 units SC AC 06/03/15 09/10/23 History
subcutaneous solution (Novolog
U-100 Insulin aspart)
lisinopril 5 mg tablet 5 mg PO NOON 06/03/15 09/10/23 History
Bifidobacterium infantis 4 mg 4 mg PO DAILY 09/04/23 09/10/23 History
capsule (Align)
albuterol sulfate 90 mcg/actuation 2 puff inhalation R Q6HPRN PRN COPD 09/04/23 09/10/23 History
aerosol inhaler
atorvastatin 20 mg tablet 40 mg PO DAILY 09/04/23 09/10/23 History
dicyclomine 20 mg tablet 20 mg PO DAILYPRN PRN IBS 09/04/23 09/10/23 History
famotidine 20 mg tablet 20 mg PO HS 09/04/23 09/10/23 History
furosemide 40 mg tablet 40 mg PO NOON 09/04/23 09/10/23 History
insulin degludec 100 unit/mL (3 45 unit SC DAILY ##0 09/04/23 09/10/23 History
mL) subcutaneous pen (Tresiba
FlexTouch U-100 insulin)
metoprolol succinate 25 mg 25 mg PO DAILY 09/04/23 09/10/23 History
tablet,extended release 24 hr
multivitamin 1 tab PO NOON 09/04/23 09/10/23 History
umeclidinium 62.5 mcg-vilanterol 1 inh inhalation R DAILY 09/04/23 09/10/23 History
25 mcg/actuation powdr for
inhalation (Anoro Ellipta)
aspirin 81 mg tablet,delayed 81 mg PO DAILY #90 tabs 09/06/23 09/10/23 Rx
release
nystatin 100,000 unit/gram topical 1 applic topical DAILY grion 09/06/23 09/10/23 History
powder
Review of Systems
-
History Source: Patient
Constitutional: Fatigue
Respiratory: Trouble Breathing
Cardiac: No Symptoms
Abdomen/GI: No Symptoms
Musculoskeletal: Edema
Neurological: No Symptoms
Hematologic/Lymphatic: No Symptoms
Physical Exam
Vital Signs
Pulse Resp BP Pulse Ox
76 21 149/113 99
09/10/23 12:15 09/10/23 12:15 09/10/23 12:00 09/10/23 12:15
Lab Results
09/10/23 07:53
09/10/23 07:53
Troponin I 0.023 ng/ml 09/10/23 07:53
Bgv-P-Jgssevgrjke Pept 3590 pg/ml 09/10/23 07:53
Physical Exam
General: No Apparent Distress and Comfortable (On mid nasal cannula flow)
HEENT: Normocephalic and Anicteric
Respiratory: Clear (To auscultation on bilateral lobes); Negative Wheezes, Crackles or Rhonchi
Cardiac: S1/S2, Regular Rhythm and Peripheral Edema (1+ pitting edema in bilateral lower extremities); Negative Murmur or Rub
GI: Soft
Musculoskeletal: Edema (1+ pitting edema, stasis dermatitis on the left leg anteriorly.)
Neuro: AO x 3
Psych: Calm
Impression / Plan
-
Background-
72-year-old male known to cardiac service PMHx significant for CAD with MO, chronic A-fib, history of heart failure, TIA, COPD, ERICK, HTN, HLD, type 2 diabetes mellitus presents to the hospital with worsening shortness of breath x 1 day and is found
to have congestive heart failure. Cardiology consulted for evaluation.
Impression -
Acute on chronic heart failure-
-As evidenced by proBNP, chest x-ray, physical examination findings
-HFmEF as evidenced by last echo in 2021
-Dry weight as of May 2023 seems to be 111 kgs.
-Diuresis with IV Lasix twice daily.
-Plan for echocardiogram in the a.m. tomorrow. Patient education for CHF.
-Salt and fluid restricted diet, monitor I&O, monitor weights.
-Will GDMT-SGLT2, ARBS, MRA
permanent A-fib
-On rate control and anticoagulation.
-Eliquis
CAD with history of MO
-Troponins unremarkable.
-On medical management.
-Continue aspirin, statin.
Hypertension
-Tight blood pressure regulation.
COPD, ERICK
PAD s/p stenting-stable
DM type 2, on insulin.
TIA.
Subjective -
Feels better now
Data reviewed -
Troponins-0.0-3-09/10/2023
proBNP 959 (03/14/2022), 09/10/[id number].
Echocardiogram-03/25/[id number] to 45%, mild concentric left ventricular hypertrophy.
Nuclear stress [id number] and anteroseptal ischemia with EF 43%.
Data Reviewed
-
EKG: Tracing Personally Visualized and interpreted
Radiology: Image Personally Visualized and interpreted
Medical Tests (Nuc Med, Echo etc): Image Personally Visualized and interpreted
Labs: Labs Reviewed by me
[2023-09-10] MEDS: THERAGRAN 1 TABLET PO (16:53)
[2023-09-10] MEDS: ALDACTONE 25 MG PO (16:53)
[2023-09-10 17:23] LABS: Glucose - Point of Care 166 mg/dl (70-99)
[2023-09-10] MEDS: DESENEX/MITRAZOL/ZEASORB 1 APPLIC TOPICAL (20:18)
[2023-09-10] MEDS: ELIQUIS 5 MG PO (20:18)
[2023-09-10] MEDS: PEPCID 20 MG PO (20:18)
[2023-09-10 20:58] LABS: Troponin I 0.025 ng/ml
[2023-09-10 21:34] LABS: Glucose - Point of Care 238 mg/dl (70-99)
--- NOTE | 2023-09-10 21:41 | PTCARENOTE ---
Patient voicing frustrations on overall situation, having to void frequently and having difficulty with urinal. Education provided on Lasix administration, fluid restriction and CHF. Purewick and radha pads placed for pt comfort and measuring
output. Right groin site with purple bruising from procedure last week. Barrier cream and Desenex applied to MASD groin/bottom/abd folds. LLE peeling, possibly stasis dermatitis. Encouraged pt to reposition self while in bed to prevent skin
breakdown. Pt extremely SOB upon exertion/turning. 3-4L Nc in place. Pt able to cough up small amount of sputum after turning. Tele showing chronic Afib HR 70-100s. 2000 troponin drawn and sent. Call castellon and tray table within reach. Pt appreciative
of cares.
[2023-09-11] VITALS (14 sets, daily range): BP systolic 102–163; BP diastolic 60–99; PULSE 2–90; O2SAT 86–92; BMI 39.7
[2023-09-11 03:41] LABS: % Basophils 0.3 % (0-2); % Immature Granulocytes 0.2 % (0-0.5); % Lymphocytes 14.3 % (20.5-51.1); % Monocytes 5.9 % (1.7-9.3); % Neutrophils 77.3 % (42.2-75.2); Absolute Eosinophils 0.2 10^3/uL (0-0.7); Absolute Lymphocytes 1.5 10^3/uL (1.2-3.4); Absolute Monocytes 0.6 10^3/uL (0.1-0.6); Absolute Neutrophils 8.2 10^3/uL (1.4-6.5); Hematocrit 33.5 % (39.0-52.0); Hemoglobin 10.9 g/dL (13.0-18.0); Mean Corp Hgb Conc. 32.5 g/dL (33.0-37.0); Mean Corpuscular Hgb 26.8 pg (27.0-31.0); Mean Corpuscular Volume 82.5 fL (80.0-94.0); Mean Platelet Volume 10.4 fL (7.4-10.4); Nucleated Red Blood Cells % 0 % (-); Platelet Count 216 10^3/uL (130-400); Red Blood Cell Count 4.06 10^6/uL (4.70-6.10); White Blood Cell Count 10.5 10^3/uL (4.8-10.8)
[2023-09-11 04:06] LABS: ALT (SGPT) 20 U/L (0-50); AST (SGOT) 23 U/L (17-59); Albumin 3.6 g/dl (3.5-5.0); Alkaline Phosphatase 118 U/L (38-126); Blood Urea Nitrogen 31 mg/dl (9-20); Calcium 8.8 mg/dl (8.4-10.2); Carbon Dioxide 26 mmol/L (22-30); Chloride 102 mmol/L (98-107); Estimated Creatinine Clearance 69 ml/min; Glucose 136 mg/dl (70-99); Magnesium 1.8 mg/dl (1.6-2.3); Potassium 4.9 mmol/L (3.5-5.1); Sodium 138 mmol/L (135-145); Total Protein 7.2 g/dl (6.3-8.2); eGFR > 60.00
[2023-09-11 04:19] LABS: Troponin I 0.028 ng/ml
[2023-09-11 07:17] LABS: Glucose - Point of Care 125 mg/dl (70-99)
--- NOTE | 2023-09-11 07:36 | W.PN.HOSP.TC ---
Today's Communication/Plan
-
wean O2 supplementation as tolerated
cont IV diuresis
Glycemic Control
Blood Pressure Control
Assessment / Plan
Assessment / Plan
Physical Exam
General: Morbidly Obese
HEENT: NormoCephalic, Moist mucous membranes and Atraumatic
Respiratory: Clear to Auscultation b/l
Cardiac: S1/S2 and Regular Rhythm
GI: Soft, Non Tender and Normal Bowel Sounds
Musculoskeletal: No Cyanosis, 2+ Edema LE b/l
Skin: Warm and Dry
Neuro: AO x 3
Psych: Calm and Intact Judgment/Insight
HPI: 72M chronic atrial fibrillation, heart failure, myocardial infarction, coronary artery disease, transient ischemic attack, peripheral vascular disease, COPD (not on home oxygen), type 1 diabetes mellitus, hypertension, hyperlipidemia, spinal
stenosis, degenerative joint disease, sleep apnea (not on home CPAP), obesity, COVID in July 2022, p/w shortness of breath starting night prior. Patient says even with any movement his shortness of breath came about and got worse. Denied coughing
fever or chest pain.
Acute Hypoxic Respiratory Failure
COPD -- not on home oxygen as per patient
History of CHF
Acute HFrEF
-IMU Admit
-Patient needing BiPAP and oxygen on admission, since weaned off BIPAP
-Continue IV Lasix
-Daily weights and I's and O's
-Cardio consult appreciated cont Lasix IV BID
-Not bronchospastic on exam so will hold off on steroids or azithromycin
-Continue home bronchodilators or inpatient equivalent
-CXR appreciated Congestive Heart Failure
-Pulm consult appreciated
-ECHO appreciated HFrEF 30-35% decreased from 2021 study 40%
-BNP 3590
Chronic atrial fibrillation
-Continue home Eliquis 5 mg BID
History of myocardial infarction
Coronary artery disease
Transient ischemic attack
Peripheral vascular disease
-Patient had left lower extremity arteriogram with angioplasty and stent to SFA and angioplasty to PT on September 06, 2023 (records are in [facility])
-Continue Aspirin, Statin, Eliquis
Type 1 diabetes mellitus
-Hold home oral diabetes medications for now and resume later later if renal function okay
-Continue Insulin Sliding Scale and Accuchecks
Hypertension
-Continue home Toprol XL 25 mg PO daily
Hyperlipidemia
-Continue Atorvastatin
Spinal stenosis
Degenerative joint disease
Sleep apnea (not on home CPAP)
Obesity
COVID in July 2022
Diet: Diabetic, Fluid-Restricted and Sodium-Restricted Diet
DVT Prophylaxis: On Eliquis
I spent a total of 55 minutes with the patient or on the floor. More than 50% of this time involved counseling and coordination of care.
Anticipated Discharge: 24 - 48 hours
Subjective/Interval History
-
Date of Service: September 11, 2023
Seen and examined at bedside in no acute distress resting comfortably in bed. Reports overall improvement in symptoms since start IV diuresis. Reports unable to tolerate BIPAP though appears patient tolerated night of admission.
Objective Data
-
Labs:
Laboratory Results
09/11/23
03:14
WBC 10.5
Hgb 10.9 L
Hct 33.5 L
Plt Count 216
Sodium 138
Potassium 4.9
Chloride 102
Carbon Dioxide 26
BUN 31 H
Creatinine 1.1
Glucose 136 H
Calcium 8.8
Total Bilirubin 2.0 H
AST 23
ALT 20
Alkaline Phosphatase 118
Vital Signs:
Vital Signs
Temp Pulse Resp BP Pulse Ox
98.3 F 101 21 135/69 91
09/11/23 03:00 09/11/23 06:30 09/11/23 06:30 09/11/23 06:00 09/11/23 06:30
I&O
09/10/23 09/11/23 09/12/23
06:59 06:59 06:59
Intake Total 240 / 240
Output Total 1650 / 1650
Balance -1410 / -1410
[2023-09-11] MEDS: NOVOLOG FLEXPEN-LOW RESISTANCE SC (07:58)
[2023-09-11] MEDS: SPIRIVA RESPIMAT 2.5 MCG 2 PUFF INH (08:33)
[2023-09-11] MEDS: STRIVERDI RESPIMAT 2 PUFF INH (08:34)
[2023-09-11] MEDS: ELIQUIS 5 MG PO ×2 (08:39→19:56)
[2023-09-11] MEDS: ASPIR LOW (ENTERIC COATED) 81 MG PO (08:39)
[2023-09-11] MEDS: LIPITOR 20 MG PO (08:39)
[2023-09-11] MEDS: VITAMIN D3 (cholecalciferol) 25 MCG PO (08:39)
[2023-09-11] MEDS: TOPROL XL 25 MG PO (08:40)
[2023-09-11] MEDS: LASIX 40 MG IV ×2 (08:42→15:29)
[2023-09-11] MEDS: ALDACTONE 25 MG PO (08:42)
[2023-09-11] MEDS: VISBIOME 1 CAP PO (08:42)
[2023-09-11] MEDS: DESENEX/MITRAZOL/ZEASORB 1 APPLIC TOPICAL ×2 (08:43→19:56)
[2023-09-11 09:56] LABS: Glycohemoglobin (HgbA1c) 7.3 % (4.0-5.6)
--- NOTE | 2023-09-11 11:27 | CARDSERVLU ---
Echocardiogram with Lumason completed after protocol screening completed. Allergies verified.
Patent IV site: _20P cap RW____
IV site flushed with 0.9% NaCl pre and post administration.
Diluted bolus method utilized to enhance visualization of ventricular dahl.
Total volume given: __4.0__ mL
Patient tolerated all procedures well without complications.
--- NOTE | 2023-09-11 11:44 | W.PN.CD ---
Today's Communication / Plan
-
Try off O2
Ambulate, increase activity
Check echo
Continue IV BID Diuresis Lasix, follow tele/labs
Slowly increase GDMT
Consider predischarge pBNP and CXR
Impression / Plan
-
Background 72-year-old male known to cardiac service PMHx significant for CAD with [place], chronic A-fib, history of heart failure, TIA, COPD, ERICK, HTN, HLD, type 2 diabetes mellitus presents to the hospital with worsening shortness of breath x 1 day
and is found to have congestive heart failure. Cardiology consulted for evaluation.
Impression
Acute on chronic heart failure-
-As evidenced by proBNP, chest x-ray, physical examination findings
-HFmEF as evidenced by last echo in 2021
-Dry weight as of May 2023 seems to be 111 kgs.
-Diuresis with IV Lasix twice daily.
-Plan for echocardiogram today, patient education for CHF.
-Salt and fluid restricted diet, monitor I&O, monitor weights.
-Will GDMT-SGLT2, RAAS-I, MRA
permanent A-fib
-On rate control and anticoagulation.
-Eliquis
CAD with history of [place]
-Troponins unremarkable.
-On medical management.
-Continue aspirin, statin.
Hypertension
COPD, ERICK
PAD s/p stenting-stable
DM type 2, on insulin.
TIA.
Subjective
Feels better now but needs to ambulate to see if he is really improved
Data
Troponins-0.0-3-09/10/2023
proBNP 959 (03/14/2022), 09/10/20238588-3565.
Echocardiogram-03/25/[id number]-VUDA-67 to 45%, mild concentric left ventricular hypertrophy.
Nuclear stress [id number] and anteroseptal ischemia with EF 43%.
Physical Exam
Vital Signs/Labs
Vital Signs
Temp Pulse Resp BP Pulse Ox
98.4 F 91 16 151/86 92
09/11/23 07:30 09/11/23 08:42 09/11/23 08:35 09/11/23 08:42 09/11/23 11:06
09/10/23 09/11/23 09/12/23
06:59 06:59 06:59
Actual Weight 111.5 kg
09/11/23 03:14
09/11/23 03:14
PT 21.1 Sec (11.4-14.6) H 09/10/23 08:19
INR 1.81 09/10/23 08:19
APTT 38.4 Sec (23.4-35.0) H 09/10/23 08:19
Magnesium 1.8 mg/dl (1.6-2.3) 09/11/23 03:14
09/10/23
07:53
Xot-R-Kjnoecnzelm Pept 3590
LAB Results
09/10/23 09/10/23 09/10/23
07:53 14:58 20:25
Troponin I 0.023 0.030 D 0.025
09/11/23
03:14
Troponin I 0.028
Physical Exam
Constitutional: No acute distress
EENT: Anicteric
Cardiovascular: Rhythm/rate is irregular
Respiratory: Respiratory effort normal and Crackles Present (at bases)
GI: Soft
Neuro/Psych: AO x 3
Data Reviewed
-
Date of Service: September 11, 2023
[2023-09-11 11:46] LABS: Glucose - Point of Care 204 mg/dl (70-99)
[2023-09-11] MEDS: NOVOLOG FLEXPEN-LOW RESISTANCE 2 UNITS SC ×2 (12:43→17:37)
[2023-09-11] MEDS: THERAGRAN 1 TABLET PO (12:52)
[2023-09-11] MEDS: ZESTRIL 10 MG PO (12:52)
--- NOTE | 2023-09-11 13:34 | W.PN.PUL3 ---
Today's Communication / Plan
-
Continue Striverdi/Spiriva
Cardiology recommendations appreciated
Continue with aggressive diuresis, trend I's/O with monitoring of sCr and UOP
Consider ischemic eval - defer to cardiology
Assessment
-
72-year-old male with history of coronary disease with ID in the past, heart failure, atrial fibrillation, sleep apnea intolerant to CPAP with recent angiogram per vascular surgery 09/06/2023. At that time he was told his oxygen level was in the high
80s. He is asymptomatic. Over the last 24 to 48 hours he has noticed increased shortness of breath, particularly at nighttime. He denies roger PND but normally he sleeps in a recliner. His shortness of breath is worse at night versus during the
daytime. This morning, when walking up the steps he was short of breath which is unusual for him. For this reason he brought himself into [facility]. Admitted for heart failure. We are asked to comment on compartment COPD
Acute hypoxic respiratory insufficiency likely due to acute HFmrEF exacerbation
86% on room air
Bilateral infiltrates, suggestive of pulm edema
History of heart failure, cardiomyopathy
EF 40% per echocardiogram 2021
Mild leukocytosis
Conditions present prior to admission
Hypertension/hyperlipidemia
Morbid obesity
Left anterior fascicular block, chronic
History of persistent atrial fibrillation on Eliquis
Coronary disease with history of ID 20+ years ago
History of TIA
Sleep apnea, failed CPAP 2021
Diabetes
Chronic DJD, back pain
20-ptam-prud, quit
PAD
Plan/recommendations
At this time, patient appears to be comfortable. He is on 3L/min from 6 L, Spo2 currently 91%
Per ED records, patient was tachypneic, conversational dyspnea. No comment on breath sounds
Moving forward
Difficult to distinguish between heart failure and COPD although presently chest exam has rales and chest x-ray suggest heart failure
Last echocardiogram was 2021, EF 40%. Patient follows cardiology (Kim)
He did receive Lasix therapy in the ER
To my knowledge he did not receive any steroid therapy
Elevated proBNP 3590 noted
Continue with IV diuresis
Cardiology has been consulted -recs appreciated
Repeat echocardiogram today with worsening LVEF of 30-35% with anterior apical hypokinesis�akinesis (of note he has had an LAD regional wall motion abnormality in the past, seen on prior TTE from March 2021)
GDMT as per cardiology
Rate control with goal HR<110bpm
Replete K>4, Mg>2
Other etiologies to consider include inflammatory pneumonitis.
Patient had COVID test and flu test which is negative
denies any symptoms concerning for infection
Given his symptoms primarily being nocturnal, suspect this is cardiac
Patient is at risk for thromboembolic disease, especially with recent procedure. This is less likely on Eliquis therapy.
Continue with outpatient therapy for COPD
Wean oxygen as able
DVT ppx: Eliquis
Will follow as cardiac workup continues
Pulmonary service will continue to follow.
Total time spent today was 35 minutes for this encounter. Time includes reviewing laboratory test/imaging results, reviewing pertinent medical records, obtaining and reviewing medical history, performing an appropriate exam, ordering medications,
tests and procedures. Time also includes documentation of this encounter, coordinating patient care and communicating with other healthcare professionals. Total time does not include separately billed tests performed on this date of service.
Subjective Data
-
Date of Service:
Date of Service: September 11, 2023
Chief Complaint: Pulmonary Follow Up
Subjective:
Seen and evaluated today at bedside. Shortness of breath has improved. Currently BP 184/129, heart rate 89, and he is saturating 91% on 3 L/min nasal cannula. No events reported overnight. He denies chest pain, headache, abdominal pain, fevers
or chills.
Review of Systems
General: Other (Negative unless mentioned above)
Objective Data
Data Reviewed
Vital Signs / I&O / Oxygen:
Vital Signs
Temp Pulse Resp BP Pulse Ox
98.4 F 91 26 141/89 95
09/11/23 07:30 09/11/23 13:15 09/11/23 13:15 09/11/23 12:52 09/11/23 13:15
Intake and Output
09/10/23 09/11/23 09/12/23
06:59 06:59 06:59
Intake Total 240 / 240 240 / 240
Output Total 1650 / 1650
Balance -1410 / -1410 240 / 240
SaO2 95
Nasal Cannula flow liters per 2
minute
Physical Exam
General: Respiratory Distress (Negative), Comfortable and Other (Morbid obesity)
HEENT: Normocephalic, Anicteric and Other (Thick neck)
Cardiovascular: Irregular Rhythm and Peripheral Edema (+1 LE edema)
Respiratory: Wheeze (Negative), Crackles (Bibasilar to middle lung montoya), Rhonchi (Negative) and Accessory Resp Muscle Use (Negative)
GI: Soft, Distended (Abdominal obesity), Non Tender and Normal Bowel Sounds
Neurology: Awake, Alert and Tremors (Negative)
Skin: Warm, Dry and Jaundice (Negative)
Labs/Micro/Reports
Lab Data
09/11/23 03:14
09/11/23 03:14
Microbiology
09/10/23 07:53 Nasal Swab Influenza Types A & B (OSBALDO) - Final
Negative for Influenza A & B, NAAT
Negative results must be combined with clinical observations
and patient history.
Nucleic Acid Amplification test (NAAT)performed on the
[email or web address] platform.
--- NOTE | 2023-09-11 13:58 | WOUNDNOTE ---
L MEDIAL LOWER LEG/ANKLE
--- NOTE | 2023-09-11 13:58 | WOUNDNOTE ---
L LATERAL FOOT CALLUS
--- NOTE | 2023-09-11 13:58 | WOUNDNOTE ---
SERGIO RN note: Patient admitted with acute heart failure.
See H&P for complete history.
PMH: A Fib, CAD/FL,HTN,COPD,IDDM, recent L leg arteriogram with angioplasty and stents, L foot callus.
Wound Location and type/assessment: Patient admitted with: dry skin on L dorsal foot and callus on l lateral foot. Patient states he uses Aquaphor cream for dry skin patches and goes to Dr. Carr for regular checkups. Heels are intact, no
draining wounds on legs or feet.
Appetite: Good
Pressure redistribution devices in place: air mattress
Plan: will order mineral oil for dry skin leg elevation when sitting.
Will confirm orders with hospitalist and updated nurse.
Updated care plan and will follow as needed.
Note to case management of equipment requested for discharge:none.
[2023-09-11] MEDS: HYDROPHOR 1 APPLIC TOPICAL (15:32)
--- NOTE | 2023-09-11 16:42 | PTCARENOTE ---
Pt tolerating 3L O2 NC with POX 91-95%. Pt up to the bedside commode this AM, O2 desat to 86% at this time, cardiology aware. Pt OOB to the chair for majority of the day. Pt trialed on RA at the request of cardiology, pt O2 dropped to 88% on RA
without activity in the recliner, returned to 94% shortly after oxygen is reinstated. Thorough heart failure education provided to pt, pt motivated and participates in education.
--- NOTE | 2023-09-11 17:23 | CM ---
Patient with Dx Acute Hypoxic Respiratory Failure. O2 2L. BiPAP HS. Receiving IV Lasix. OOB chair today.
Spoke with patient's Lalitha;
the patient resides with his in a 2 story house with 1 ELICEO.
The patient has been independent in ADLs and ambulation, using a SPC when going out.
reports ambulation is slow due to SOB.
DME - SPC, RW
VN - remote VN after knee replacement, can't remember agency
SNF - none
PCP - Beverly Malagon
Pharmacy - [facility]
Plan follow patient's mobility.
Plan watch for any home O2 needs.
Plan home.
[2023-09-11 17:43] LABS: Glucose - Point of Care 241 mg/dl (70-99)
[2023-09-11 19:54] LABS: Hepatitis C Antibody Negative (Negative)
[2023-09-11] MEDS: PEPCID 20 MG PO (19:56)
[2023-09-11 22:19] LABS: Glucose - Point of Care 260 mg/dl (70-99)
[2023-09-12] VITALS (13 sets, daily range): BP systolic 100–142; BP diastolic 58–87; PULSE 82–84; O2SAT 96–100; BMI 38.9
--- NOTE | 2023-09-12 04:59 | PTCARENOTE ---
Assisted pt from chair to bed for sleep. Patient slept on/off throughout the night. 3L NC remain in place. Tele showing Afib. Denies any pain. Voiding via purewick, good UO. Encouraged to reposition self while in bed. Call castellon within reach. Calls
appropriately.
[2023-09-12 06:05] LABS: % Basophils 0.3 % (0-2); % Eosinophils 4.3 % (0-6); % Immature Granulocytes 0.4 % (0-0.5); % Lymphocytes 15.5 % (20.5-51.1); % Neutrophils 73.5 % (42.2-75.2); Absolute Eosinophils 0.4 10^3/uL (0-0.7); Absolute Lymphocytes 1.4 10^3/uL (1.2-3.4); Absolute Monocytes 0.6 10^3/uL (0.1-0.6); Absolute Neutrophils 6.9 10^3/uL (1.4-6.5); Hematocrit 36.4 % (39.0-52.0); Hemoglobin 11.9 g/dL (13.0-18.0); Mean Corp Hgb Conc. 32.7 g/dL (33.0-37.0); Mean Corpuscular Hgb 27.5 pg (27.0-31.0); Mean Corpuscular Volume 84.3 fL (80.0-94.0); Mean Platelet Volume 10.7 fL (7.4-10.4); Nucleated Red Blood Cells % 0 % (-); Platelet Count 221 10^3/uL (130-400); Red Blood Cell Count 4.32 10^6/uL (4.70-6.10); Red Cell Dist. Width 18.1 % (11.5-14.5); White Blood Cell Count 9.3 10^3/uL (4.8-10.8)
[2023-09-12 06:25] LABS: ALT (SGPT) 18 U/L (0-50); AST (SGOT) 22 U/L (17-59); Albumin 3.5 g/dl (3.5-5.0); Alkaline Phosphatase 120 U/L (38-126); Blood Urea Nitrogen 33 mg/dl (9-20); Calcium 8.6 mg/dl (8.4-10.2); Carbon Dioxide 25 mmol/L (22-30); Chloride 99 mmol/L (98-107); Estimated Creatinine Clearance 63 ml/min; Glucose 176 mg/dl (70-99); Magnesium 1.7 mg/dl (1.6-2.3); Phosphorus 3.9 mg/dl (2.5-4.5); Potassium 4.6 mmol/L (3.5-5.1); Sodium 133 mmol/L (135-145); Total Bilirubin 2.3 mg/dl (0.2-1.3); Total Protein 6.9 g/dl (6.3-8.2); eGFR > 60.00
[2023-09-12 07:16] LABS: Glucose - Point of Care 192 mg/dl (70-99)
[2023-09-12] MEDS: NOVOLOG FLEXPEN-LOW RESISTANCE 1 UNITS SC (07:30)
[2023-09-12] MEDS: VISBIOME 1 CAP PO (07:31)
[2023-09-12] MEDS: ASPIR LOW (ENTERIC COATED) 81 MG PO (07:31)
[2023-09-12] MEDS: VITAMIN D3 (cholecalciferol) 25 MCG PO (07:32)
[2023-09-12] MEDS: LIPITOR 20 MG PO (07:32)
[2023-09-12] MEDS: ALDACTONE 25 MG PO (07:32)
[2023-09-12] MEDS: LASIX 40 MG IV ×2 (07:33→16:37)
[2023-09-12] MEDS: TOPROL XL 25 MG PO (07:33)
[2023-09-12] MEDS: HYDROPHOR 1 APPLIC TOPICAL (07:33)
[2023-09-12] MEDS: DESENEX/MITRAZOL/ZEASORB 1 APPLIC TOPICAL ×2 (07:34→19:44)
--- NOTE | 2023-09-12 07:35 | W.PN.HOSP.TC ---
Today's Communication/Plan
-
glycemic control
diuresis
hold Eliquis, NPO after midnight for Cath tomorrow as per cardio
wean O2 supplementation as tolerated
PT/OT
Assessment / Plan
Assessment / Plan
Physical Exam
General: Morbidly Obese
HEENT: NormoCephalic, Moist mucous membranes and Atraumatic
Respiratory: Clear to Auscultation b/l
Cardiac: S1/S2 and Regular Rhythm
GI: Soft, Non Tender and Normal Bowel Sounds
Musculoskeletal: No Cyanosis, 2+ Edema LE b/l
Skin: Warm and Dry
Neuro: AO x 3
Psych: Calm and Intact Judgment/Insight
HPI: 72M chronic atrial fibrillation, heart failure, myocardial infarction, coronary artery disease, transient ischemic attack, peripheral vascular disease, COPD (not on home oxygen), type 1 diabetes mellitus, hypertension, hyperlipidemia, spinal
stenosis, degenerative joint disease, sleep apnea (not on home CPAP), obesity, COVID in July 2022, p/w shortness of breath starting night prior. Patient says even with any movement his shortness of breath came about and got worse. Denied coughing
fever or chest pain.
Acute Hypoxic Respiratory Failure
COPD -- not on home oxygen as per patient
History of CHF
Acute HFrEF
-IMU Admit
-Patient needed BiPAP and oxygen on admission, since weaned off BIPAP
-Continue IV Lasix
-Daily weights and I's and O's
-Cardio consult appreciated npo after midnight for L & R heart cath
-Continue home bronchodilators or inpatient equivalent
-CXR appreciated Congestive Heart Failure
-Pulm consult appreciated
-ECHO appreciated HFrEF 30-35% decreased from 2021 study 40%
-BNP 3590
Chronic atrial fibrillation
-Continued home Eliquis 5 mg BID on hold for cath tomorrow as per cardio
History of myocardial infarction
Coronary artery disease
Transient ischemic attack
Peripheral vascular disease
-Patient had left lower extremity arteriogram with angioplasty and stent to SFA and angioplasty to PT on September 06, 2023 (records are in [facility])
-Continue Aspirin, Statin
-Eliquis hold as above
Type 1 diabetes mellitus
-home oral diabetes medications held on admission
-Continue Insulin Sliding Scale and Accuchecks
-Jardiance added as per Cardio for heart failure
Hypertension
-Continue home Toprol XL 25 mg PO daily
Hyperlipidemia
-Continue Atorvastatin
Spinal stenosis
Degenerative joint disease
Sleep apnea (not on home CPAP)
Obesity
COVID in July 2022
PT/OT appreciated home health vs no needs
Diet: Diabetic, Fluid-Restricted and Sodium-Restricted Diet
DVT Prophylaxis: On Eliquis to be held for Cath tomorrow as per Cardio
I spent a total of 55 minutes with the patient or on the floor. More than 50% of this time involved counseling and coordination of care.
Anticipated Discharge: > 48 hours
Subjective/Interval History
-
Date of Service: September 12, 2023
No acute distress sitting up comfortably in chair. Reports overall feeling well. Remains oxygen dependent though low dose requirement.
Objective Data
-
Labs:
Laboratory Results
09/12/23
05:33
WBC 9.3
Hgb 11.9 L
Hct 36.4 L
Plt Count 221
Sodium 133 L
Potassium 4.6
Chloride 99
Carbon Dioxide 25
BUN 33 H
Creatinine 1.2
Glucose 176 H
Calcium 8.6
Total Bilirubin 2.3 H
AST 22
ALT 18
Alkaline Phosphatase 120
Vital Signs:
Vital Signs
Temp Pulse Resp BP Pulse Ox
97.6 F 93 28 100/67 93
09/12/23 07:21 09/12/23 06:30 09/12/23 06:30 09/12/23 06:00 09/12/23 06:30
I&O
09/11/23 09/12/23 09/13/23
06:59 06:59 06:59
Intake Total 240 / 240 480 / 480
Output Total 1650 / 1650 1150 / 1150
Balance -1410 / -1410 -670 / -670
[2023-09-12] MEDS: ELIQUIS 5 MG PO (07:38)
[2023-09-12] MEDS: STRIVERDI RESPIMAT 2 PUFF INH (07:45)
[2023-09-12] MEDS: SPIRIVA RESPIMAT 2.5 MCG 2 PUFF INH (07:45)
--- NOTE | 2023-09-12 08:32 | W.PN.CD ---
Today's Communication / Plan
-
-EF now declined to 30-30% from 40-45%.
-Will arrange for right and left cardiac catheterization tomorrow; NPO after midnight.
-Continue Lasix 40 mg IV BID.
-Will start Jardiance 10 mg daily for GDMT.
-On Eliquis; will hold for cardiac catheterization tomorrow.
-Will check lipid panel; goal LDL is less than 55.
Impression / Plan
-
Background 72 year-old male (known to Dr. Alvarez, his primary Therapy Aide) with coronary artery disease (previous silent anterior myocardial infarction with known occlusion of the LAD), chronic HFmrEF/ischemic cardiomyopathy (LVEF 40-45%),
permanent atrial fibrillation (on Eliquis), chronic RBBB, LAFB, hypertension, hyperlipidemia, peripheral arterial disease (followed by Vascular Surgery), diabetes, obesity, COPD (followed by Pulmonary), and obstructive sleep apnea�admitted with CHF
exacerbation.
Impression
Acute on chronic HFrEF -EF now declined to 30-30% from 40-45%.
-Possibly secondary to progressive CAD.
-Will arrange for right and left cardiac catheterization tomorrow; NPO after midnight.
-Continue Lasix 40 mg IV BID.
-Dry weight as of May 2023 seems to be 111 kgs.
-Salt and fluid restricted diet, monitor I&O, monitor weights.
-Will start Jardiance 10 mg daily for GDMT.
permanent A-fib
-On rate control and anticoagulation.
-Continue current dose of Toprol-XL.
-On Eliquis; will hold for cardiac catheterization tomorrow.
CAD with history of PA
-Denies any anginal symptoms, but worsening LVEF, and 6-beat run of NSVT noted on telemetry.
-Troponins unremarkable.
-Will undergo catheterization as above.
-Continue aspirin, statin.
-Will check lipid panel; goal LDL is less than 55.
Hypertension -controlled.
COPD, ERICK
PAD s/p stenting-stable
DM type 2, on insulin -hemoglobin A1c 7.3%.
TIA.
Obesity -weight loss recommended.
Subjective
6-beat run of NSVT noted on telemetry. Denies chest pain or palpitations. Dyspnea improving.
Data
Troponins-0.0-3-09/10/2023
proBNP 959 (03/14/2022), 09/10/[id number].
Echocardiogram-03/25/[id number]-LVAF-36 to 45%, mild concentric left ventricular hypertrophy.
Nuclear stress [id number] and anteroseptal ischemia with EF 43%.
Physical Exam
Vital Signs/Labs
Vital Signs
Temp Pulse Resp BP Pulse Ox
97.6 F 93 16 100/67 94
09/12/23 07:21 09/12/23 07:50 09/12/23 07:50 09/12/23 07:33 09/12/23 07:50
09/11/23 09/12/23 09/13/23
06:59 06:59 06:59
Actual Weight 111.5 kg 109.3 kg
09/12/23 05:33
09/12/23 05:33
PT 21.1 Sec (11.4-14.6) H 09/10/23 08:19
INR 1.81 09/10/23 08:19
APTT 38.4 Sec (23.4-35.0) H 09/10/23 08:19
Magnesium 1.7 mg/dl (1.6-2.3) 09/12/23 05:33
09/10/23
07:53
Kdu-K-Ganpxhhkgtv Pept 3590
LAB Results
09/10/23 09/10/23 09/10/23
07:53 14:58 20:25
Troponin I 0.023 0.030 D 0.025
09/11/23
03:14
Troponin I 0.028
Physical Exam
Constitutional: No acute distress and Comfortable
EENT: Anicteric
Cardiovascular: Pedal edema is absent, Systolic murmur absent, Rhythm/rate is irregular and S1S2 is normal
Respiratory: Respiratory effort normal, Wheeze Absent and Rhonchi Present (Mild bibasilar)
GI: Soft
Neuro/Psych: AO x 3
Other: Skin (Warm, dry)
Data Reviewed
-
Date of Service: September 12, 2023
EKG: Tracing Personally Visualized and interpreted (Atrial fibrillation, 6-beat run of NSVT, 3-beat run of NSVT)
Echo: Report Reviewed by me (EF 30-35%; no significant valvular disease)
Medical Tests (PFT, Pathology etc): Discussed with Nurse and Discussed with Patient
Labs: Labs Reviewed by me
[2023-09-12] MEDS: JARDIANCE 10 MG PO (09:26)
--- NOTE | 2023-09-12 11:00 | PTCARENOTE ---
Pt titrated down to 2L O2 from 3L O2 NC, tolerating at 95%. Pt worked with PT, ambulating the halls with portable O2, standby assist. Cardiology visited pt bedside, updated on POC and plan to take pt to the labor and employment paralegal in the AM. Heart failure
education provided. Pt spent the morning in the recliner, ambulating into the bathroom PRN. Pt resting comfortably awaiting lunch.
[2023-09-12 11:31] LABS: Glucose - Point of Care 337 mg/dl (70-99)
[2023-09-12] MEDS: THERAGRAN 1 TABLET PO (12:01)
[2023-09-12] MEDS: ZESTRIL 10 MG PO (12:02)
[2023-09-12] MEDS: NOVOLOG FLEXPEN-LOW RESISTANCE 4 UNITS SC (12:04)
--- NOTE | 2023-09-12 12:35 | W.PN.PUL3 ---
Today's Communication / Plan
-
Continue Striverdi/Spiriva
Cardiology recommendations appreciated
Continue with aggressive diuresis, trend I's/O with monitoring of sCr and UOP
NPO p MN for LHC/RHC
Assessment
-
72-year-old male with history of coronary disease with HI in the past, heart failure, atrial fibrillation, sleep apnea intolerant to CPAP with recent angiogram per vascular surgery 09/06/2023. At that time he was told his oxygen level was in the high
80s. He is asymptomatic. Over the last 24 to 48 hours he has noticed increased shortness of breath, particularly at nighttime. He denies roger PND but normally he sleeps in a recliner. His shortness of breath is worse at night versus during the
daytime. This morning, when walking up the steps he was short of breath which is unusual for him. For this reason he brought himself into [facility]. Admitted for heart failure. We are asked to comment on compartment COPD
Acute hypoxic respiratory insufficiency likely due to acute HFmrEF exacerbation
86% on room air
Bilateral infiltrates, suggestive of pulm edema
History of heart failure, cardiomyopathy now with worsened LVEF at 30-35% via updated TTE from 09/11/2023
EF 40% per echocardiogram 2021
Mild leukocytosis
Conditions present prior to admission
Hypertension/hyperlipidemia
Morbid obesity
Left anterior fascicular block, chronic
History of persistent atrial fibrillation on Eliquis
Coronary disease with history of HI 20+ years ago
History of TIA
Sleep apnea, failed CPAP 2021
Diabetes
Chronic DJD, back pain
[id number], quit
PAD
Plan/recommendations
At this time, patient appears to be comfortable. He is on 2L/min from 3 L, Spo2 currently 94%
Per ED records, patient was tachypneic, conversational dyspnea. No comment on breath sounds
Moving forward
Transthoracic echo from 09/11/2023 shows declined LVEF at 30-35% down from 40% in 2021
His O2 requirements have improved
NPO p MN for ischemic evaluation with C as per cardiology; he is also going to obtain RHC
Patient follows cardiology (Kim)
He did receive Lasix therapy in the ER
Elevated proBNP 3590 noted
Continue with IV diuresis
Cardiology recs appreciated
Repeat echocardiogram from 09/11/2023 with worsening LVEF of 30-35% with anterior apical hypokinesis�akinesis (of note he has had an LAD regional wall motion abnormality in the past, seen on prior TTE from March 2021)
GDMT as per cardiology
Rate control with goal HR<110bpm
Replete K>4, Mg>2
Other etiologies to consider include inflammatory pneumonitis.
Patient had COVID test and flu test which is negative
denies any symptoms concerning for infection
Given his symptoms primarily being nocturnal, suspect this is cardiac
Patient is at risk for thromboembolic disease, especially with recent procedure. This is less likely on Eliquis therapy.
Continue with outpatient therapy for COPD
Wean oxygen as able
DVT ppx: Eliquis (on hold pending LHC/RHC tomorrow)
Pulmonary service will continue to follow.
Total time spent today was 35 minutes for this encounter. Time includes reviewing laboratory test/imaging results, reviewing pertinent medical records, obtaining and reviewing medical history, performing an appropriate exam, ordering medications,
tests and procedures. Time also includes documentation of this encounter, coordinating patient care and communicating with other healthcare professionals. Total time does not include separately billed tests performed on this date of service.
Subjective Data
-
Date of Service:
Date of Service: September 12, 2023
Chief Complaint: Pulmonary Follow Up
Subjective:
Seen today, no chest pain reproted today. LHC/RHC pending for tomorrow as per cardiology. He says his breathing has improved compared to admission. He denies abd pain, N/V/f/c.
Review of Systems
General: Other (negative unless mentioned above)
Objective Data
Data Reviewed
Vital Signs / I&O / Oxygen:
Vital Signs
Temp Pulse Resp BP Pulse Ox
98.1 F 85 26 100/87 94
09/12/23 11:40 09/12/23 12:02 09/12/23 10:45 09/12/23 12:02 09/12/23 11:30
Intake and Output
09/11/23 09/12/23 09/13/23
06:59 06:59 06:59
Intake Total 240 / 240 480 / 480 660 / 660
Output Total 1650 / 1650 1150 / 1150
Balance -1410 / -1410 -670 / -670 660 / 660
SaO2 94
Nasal Cannula flow liters per 2
minute
Physical Exam
General: Respiratory Distress (Negative), Comfortable and Other (Morbid obesity)
HEENT: Normocephalic, Anicteric and Other (Thick neck)
Cardiovascular: Irregular Rhythm and Peripheral Edema (+1 LE edema)
Respiratory: Wheeze (Negative), Crackles (Bibasilar to middle lung montoya), Rhonchi (Negative) and Accessory Resp Muscle Use (Negative)
GI: Soft, Distended (Abdominal obesity), Non Tender and Normal Bowel Sounds
Neurology: Awake, Alert and Tremors (Negative)
Skin: Warm, Dry and Jaundice (Negative)
Labs/Micro/Reports
Lab Data
09/12/23 05:33
09/12/23 05:33
Microbiology
09/10/23 07:53 Nasal Swab Influenza Types A & B (OSBALDO) - Final
Negative for Influenza A & B, NAAT
Negative results must be combined with clinical observations
and patient history.
Nucleic Acid Amplification test (NAAT)performed on the
[employer] platform.
[2023-09-12 16:34] LABS: Glucose - Point of Care 298 mg/dl (70-99)
[2023-09-12] MEDS: NOVOLOG FLEXPEN-LOW RESISTANCE 3 UNITS SC (16:51)
[2023-09-12] MEDS: PEPCID 20 MG PO (19:43)
[2023-09-12 21:15] LABS: Glucose - Point of Care 263 mg/dl (70-99)
--- NOTE | 2023-09-12 23:29 | PTCARENOTE ---
Caring for pt overnight. aaox3. AFib on monitor. vss. Remains 2LNC, VIEYRA, orthopneic. X1 assist in room, oob to chair. Denies pain. Slight swelling in lower extremities still. No crackles heard, just diminished. Plan for NPO after midnight for heart
cath, pt aware.
Pt concerned about blood sugars and how we are managing them. Let pt know that there has been a DM educator consult in so he can speak to someone about his coverage.
Call castellon in reach. Will monitor.
[2023-09-13] VITALS (23 sets, daily range): BP systolic 92–146; BP diastolic 30–130; BMI 37.7
[2023-09-13 04:36] LABS: % Basophils 0.4 % (0-2); % Eosinophils 4.9 % (0-6); % Immature Granulocytes 0.4 % (0-0.5); % Lymphocytes 16.1 % (20.5-51.1); % Monocytes 6.1 % (1.7-9.3); % Neutrophils 72.1 % (42.2-75.2); Absolute Eosinophils 0.5 10^3/uL (0-0.7); Absolute Lymphocytes 1.7 10^3/uL (1.2-3.4); Absolute Monocytes 0.7 10^3/uL (0.1-0.6); Absolute Neutrophils 7.6 10^3/uL (1.4-6.5); Hematocrit 36.7 % (39.0-52.0); Mean Corp Hgb Conc. 32.7 g/dL (33.0-37.0); Mean Corpuscular Volume 82.5 fL (80.0-94.0); Mean Platelet Volume 10.4 fL (7.4-10.4); Nucleated Red Blood Cells % 0 % (-); Platelet Count 251 10^3/uL (130-400); Red Blood Cell Count 4.45 10^6/uL (4.70-6.10); Red Cell Dist. Width 18.1 % (11.5-14.5); White Blood Cell Count 10.6 10^3/uL (4.8-10.8)
[2023-09-13 05:02] LABS: ALT (SGPT) 20 U/L (0-50); AST (SGOT) 25 U/L (17-59); Albumin 3.8 g/dl (3.5-5.0); Alkaline Phosphatase 125 U/L (38-126); Blood Urea Nitrogen 45 mg/dl (9-20); Calcium 9.5 mg/dl (8.4-10.2); Carbon Dioxide 26 mmol/L (22-30); Chloride 98 mmol/L (98-107); Estimated Creatinine Clearance 49 ml/min; Glucose 187 mg/dl (70-99); HDL Cholesterol 34 mg/dl; LDL Cholesterol, Calculated 56 mg/dl; Magnesium 1.9 mg/dl (1.6-2.3); Phosphorus 5.6 mg/dl (2.5-4.5); Potassium 4.4 mmol/L (3.5-5.1); Sodium 136 mmol/L (135-145); Total Bilirubin 1.6 mg/dl (0.2-1.3); Total Cholesterol 109 mg/dl (50-199); Total Protein 7.4 g/dl (6.3-8.2); Triglyceride 95 mg/dl (10-149); Very Low Density Lipoprotein 19 mg/dl (0-30); eGFR 48.55
[2023-09-13] MEDS: SPIRIVA RESPIMAT 2.5 MCG 2 PUFF INH (07:15)
[2023-09-13] MEDS: STRIVERDI RESPIMAT 2 PUFF INH (07:15)
--- NOTE | 2023-09-13 07:18 | W.PN.HOSP.TC ---
Today's Communication/Plan
-
NPO, hold Eliquis, for cath today
hold further diuresis d/t mild RAUL
wean O2 supplementation as tolerated
Glycemic control, Diabetes TOOL BUILDER eval requested
Assessment / Plan
Assessment / Plan
Physical Exam
General: Morbidly Obese
HEENT: NormoCephalic, Moist mucous membranes and Atraumatic
Respiratory: Clear to Auscultation b/l
Cardiac: S1/S2 and Regular Rhythm
GI: Soft, Non Tender and Normal Bowel Sounds
Musculoskeletal: No Cyanosis, 2+ Edema LE b/l
Skin: Warm and Dry
Neuro: AO x 3
Psych: Calm and Intact Judgment/Insight
HPI: 72M chronic atrial fibrillation, heart failure, myocardial infarction, coronary artery disease, transient ischemic attack, peripheral vascular disease, COPD (not on home oxygen), type 1 diabetes mellitus, hypertension, hyperlipidemia, spinal
stenosis, degenerative joint disease, sleep apnea (not on home CPAP), obesity, COVID in July 2022, p/w shortness of breath starting night prior. Patient says even with any movement his shortness of breath came about and got worse. Denied coughing
fever or chest pain.
Acute Hypoxic Respiratory Failure
COPD -- not on home oxygen as per patient
History of CHF
Acute HFrEF
-IMU Admit
-Patient needed BiPAP and oxygen on admission, since weaned off BIPAP
-IV Lasix placed on hold 09/12 d/t mild RAUL Cr elevation 1.5 baseline 1.1
-Daily weights and I's and O's
-Cardio consult appreciated npo for L & R heart cath today 09/12
-Continue home bronchodilators or inpatient equivalent
-CXR appreciated Congestive Heart Failure
-Pulm consult appreciated
-ECHO appreciated HFrEF 30-35% decreased from 2021 study 40%
-BNP 3590
Chronic atrial fibrillation
-Continued home Eliquis 5 mg BID on hold for cath today as per cardio
History of myocardial infarction
Coronary artery disease
Transient ischemic attack
Peripheral vascular disease
-Patient had left lower extremity arteriogram with angioplasty and stent to SFA and angioplasty to PT on September 06, 2023 (records are in [employer])
-Continue Aspirin, Statin
-Eliquis on hold for cath today 09/12
Type 1 diabetes mellitus
-home oral diabetes medications held on admission
-Continue Insulin Sliding Scale and Accuchecks
-Jardiance added as per Cardio for heart failure
-Diabetes TOOL BUILDER consult requested
Hypertension
-Continue home Toprol XL 25 mg PO daily
Hyperlipidemia
-Continue Atorvastatin
Spinal stenosis
Degenerative joint disease
Sleep apnea (not on home CPAP)
Obesity
COVID in July 2022
PT/OT appreciated home health vs no needs
Diet: Diabetic, Fluid-Restricted and Sodium-Restricted Diet
DVT Prophylaxis: On Eliquis to be held for Cath tomorrow as per Cardio
I spent a total of 55 minutes with the patient or on the floor. More than 50% of this time involved counseling and coordination of care.
Anticipated Discharge: 24 - 48 hours
Subjective/Interval History
-
Date of Service: September 13, 2023
Seen and examined at bedside in no acute distress resting comfortably in bed. Overall reports feeling well. Remains dependent on low dose oxygen supplementation. Stable respiratory status non-labored.
Objective Data
-
Labs:
Laboratory Results
09/13/23
04:15
WBC 10.6
Hgb 12.0 L
Hct 36.7 L
Plt Count 251
Sodium 136
Potassium 4.4
Chloride 98
Carbon Dioxide 26
BUN 45 H
Creatinine 1.5 H
Glucose 187 H
Calcium 9.5
Total Bilirubin 1.6 H
AST 25
ALT 20
Alkaline Phosphatase 125
Vital Signs:
Vital Signs
Temp Pulse Resp BP Pulse Ox
97.9 F 77 18 106/43 94
09/13/23 03:49 09/13/23 06:00 09/13/23 06:00 09/13/23 06:00 09/13/23 06:00
I&O
09/12/23 09/13/23 09/14/23
06:59 06:59 06:59
Intake Total 480 / 480 660 / 660
Output Total 1150 / 1150
Balance -670 / -670 660 / 660
[2023-09-13 07:48] LABS: Glucose - Point of Care 191 mg/dl (70-99)
[2023-09-13] MEDS: HYDROPHOR 1 APPLIC TOPICAL (08:19)
[2023-09-13] MEDS: ALDACTONE 25 MG PO (08:20)
[2023-09-13] MEDS: VISBIOME 1 CAP PO (08:20)
[2023-09-13] MEDS: ASPIR LOW (ENTERIC COATED) 81 MG PO (08:20)
[2023-09-13] MEDS: VITAMIN D3 (cholecalciferol) 25 MCG PO (08:20)
[2023-09-13] MEDS: LASIX 40 MG IV (08:20)
[2023-09-13] MEDS: JARDIANCE 10 MG PO (08:20)
[2023-09-13] MEDS: LIPITOR 20 MG PO (08:20)
[2023-09-13] MEDS: TOPROL XL 25 MG PO (08:20)
[2023-09-13] MEDS: DESENEX/MITRAZOL/ZEASORB 1 APPLIC TOPICAL (08:21)
[2023-09-13] MEDS: NOVOLOG FLEXPEN-LOW RESISTANCE SC ×2 (08:33→14:20)
--- NOTE | 2023-09-13 10:20 | W.PN.PUL3 ---
Today's Communication / Plan
-
Re-check CXR tomorrow AM
Continue Striverdi/Spiriva
Start Budesonide; given absolute eosinophils of 500 this admission with evidence of asthma on PFTs, would try to DC on Breztri vs Trelegy or simply add an ICS upon discharge
Cardiology recommendations appreciated
Trend I's/O with monitoring of sCr and UOP
LHC/RHC performed today to stop diuresis. Optimize GDMT as per cardiology
Further evaluation as an outpatient including repeating CT chest to assess interstitial changes seen on last CT chest in 10/2022
Assessment
-
72-year-old male with history of coronary disease with HI in the past, heart failure, atrial fibrillation, sleep apnea intolerant to CPAP with recent angiogram per vascular surgery 09/06/2023. At that time he was told his oxygen level was in the high
80s. He is asymptomatic. Over the last 24 to 48 hours he has noticed increased shortness of breath, particularly at nighttime. He denies roger PND but normally he sleeps in a recliner. His shortness of breath is worse at night versus during the
daytime. This morning, when walking up the steps he was short of breath which is unusual for him. For this reason he brought himself into [facility]. Admitted for heart failure. We are asked to comment on compartment COPD
Acute hypoxic respiratory insufficiency likely due to acute HFrEF exacerbation
86% on room air
Bilateral infiltrates, suggestive of pulm edema
History of heart failure, cardiomyopathy now with worsened LVEF at 30-35% via updated TTE from 09/11/2023
EF 40% per echocardiogram 2021
Mild leukocytosis - now resolved
Conditions present prior to admission
Hypertension/hyperlipidemia
Morbid obesity
Left anterior fascicular block, chronic
History of persistent atrial fibrillation on Eliquis
Coronary disease with history of HI 20+ years ago
History of TIA
Severe sleep apnea, failed CPAP 2021
Diabetes
Chronic DJD, back pain
[id number], quit
PAD
Plan/recommendations
At this time, patient appears to be comfortable. He is on 2L/min from 3 L, Spo2 ~94%
Per ED records, patient was tachypneic, conversational dyspnea. No comment on breath sounds
Moving forward
Transthoracic echo from 09/11/2023 shows declined LVEF at 30-35% down from 40% in 2021
Patient follows cardiology (Kim)
Elevated proBNP 3590 noted
His O2 requirements have improved
He underwent LHC and RHC today showed reduced CI and low PCWP with slightly elevated PADP with mild pHTN (mPAP: 23mmHg)- no additional diuresis
Elevated PVR with reduced PCWP indicated mild pre-capillary pHTN; there is also elevated SVR, hence the same process occuring in his systemic arterial circulation is also happening at his PA
Cardiology recs appreciated
Repeat echocardiogram from 09/11/2023 with worsening LVEF of 30-35% with anterior apical hypokinesis�akinesis (of note he has had an LAD regional wall motion abnormality in the past, seen on prior TTE from March 2021)
GDMT as per cardiology
Rate control with goal HR<110bpm
Replete K>4, Mg>2
Other etiologies to consider include inflammatory pneumonitis.
Patient had COVID test and flu test which is negative
denies any symptoms concerning for infection
Given his symptoms primarily being nocturnal, suspected this to be cardiac
Patient is at risk for thromboembolic disease, especially with recent procedure. This is less likely on Eliquis therapy.
Continue with outpatient therapy for asthma (best seen on PFT from 11/2021 when his obstructive defect fully reversed and his DLco/VA is normal when compared to DLco, and that pattern is seen with his diffusion capacity on many of his PFTs); no COPD
as per last PFT from Mar 2023
Given his mild pHTN and Hx of severe ERICK intolerant to CPAP, do not think other etiologies need to be investigated. Otherwise, could consider checking V/Q to r/o CTEPH; he does have interstitial changes on last CT chest from 10/2022 - CT chest
should be repeated as an outpatient, which can be discussed in the office
Wean oxygen as able
DVT ppx: Eliquis
Pulmonary service will continue to follow.
Total time spent today was 35 minutes for this encounter. Time includes reviewing laboratory test/imaging results, reviewing pertinent medical records, obtaining and reviewing medical history, performing an appropriate exam, ordering medications,
tests and procedures. Time also includes documentation of this encounter, coordinating patient care and communicating with other healthcare professionals. Total time does not include separately billed tests performed on this date of service.
Subjective Data
-
Date of Service:
Date of Service: September 13, 2023
Chief Complaint: Pulmonary Follow Up
Subjective:
Pt seen today at bedside. He is on 2L/min NC breathing comfortably. HR 81, RR 24 and BP 105/56. No overnight events reproted.
Review of Systems
General: Other (negative unless mentioned above)
Objective Data
Data Reviewed
Vital Signs / I&O / Oxygen:
Vital Signs
Temp Pulse Resp BP Pulse Ox
98.1 F 86 26 102/63 95
09/13/23 07:15 09/13/23 08:00 09/13/23 08:00 09/13/23 08:00 09/13/23 08:33
Intake and Output
09/12/23 09/13/23 09/14/23
06:59 06:59 06:59
Intake Total 480 / 480 660 / 660
Output Total 1150 / 1150
Balance -670 / -670 660 / 660
SaO2 95
Nasal Cannula flow liters per 2
minute
Physical Exam
General: Respiratory Distress (Negative), Comfortable and Other (Morbid obesity)
HEENT: Normocephalic, Anicteric and Other (Thick neck)
Cardiovascular: Irregular Rhythm and Peripheral Edema (+1 LE edema)
Respiratory: Wheeze (Negative), Crackles (Bibasilar to middle lung montoya), Rhonchi (Negative) and Accessory Resp Muscle Use (Negative)
GI: Soft, Distended (Abdominal obesity), Non Tender and Normal Bowel Sounds
Neurology: Awake, Alert and Tremors (Negative)
Skin: Warm, Dry and Jaundice (Negative)
Labs/Micro/Reports
Lab Data
09/13/23 04:15
09/13/23 04:15
Microbiology
09/10/23 07:53 Nasal Swab Influenza Types A & B (OSBALDO) - Final
Negative for Influenza A & B, NAAT
Negative results must be combined with clinical observations
and patient history.
Nucleic Acid Amplification test (NAAT)performed on the
[employer] platform.
[2023-09-13 11:53] LABS: Glucose - Point of Care 241 mg/dl (70-99)
[2023-09-13] MEDS: NOVOLOG FLEXPEN SC (12:05)
[2023-09-13] MEDS: NOVOLOG FLEXPEN-LOW RESISTANCE 2 UNITS SC (12:07)
--- NOTE | 2023-09-13 13:51 | PN.DE.MGMTRT ---
Insulin Management
- -
09/13/2023 Diabetes Management Consult
Patient admitted 09/09 with acute hypoxic respiratory distress. Diabetes management consult 09/12. PMH chronic a fib, CHF, ID, CAD, TIA, PVD, COPD, diabetes, HTN, HLD, djd, sleep apnea, obesity
Prior to admission patient states he was taking Tresiba 45 units daily with novolog 7 to 20 units AC and metformin 1000 BID. A1C 7.3, cr 1.5, eGFR 48.55.
Patient is awake alert and oriented, preparing to be transported for testing.
Patient has been receiving corrective insulin only. Glucose range 09/11 192 to 337.
Will start lantus 45 units now and daily @ 0800, with 5 units novolog AC with low corrective insulin. Will not restart metformin due to cr/eGFR. Cardiology has started Jardiance 10 mg daily.
Will follow
Diabetes History
- -
Type of Diabetes: 2 requiring insulin
Pre-Admission Diabetes Regimen
09/13/23
04:15
Creatinine 1.5 H
Lab Results
Hemoglobin A1c 7.3 % (4.0-5.6) H 09/11/23 03:14
Insulin Pump Settings
IP Diabetes Regimen
09/12/23 09/12/23 09/13/23
16:23 21:04 04:15
Glucose 187 H
POC Glucose 298 H 263 H
09/13/23 09/13/23
07:36 11:41
Glucose
POC Glucose 191 H 241 H
Meal type: Lunch
Meal type: Breakfast
Patient Education
--- NOTE | 2023-09-13 14:01 | ITS.CL.CATH ---
Information Services Vice President - Catheterization
Cardiac Catheterization
Procedure Report:
CARDIAC CATHETERIZATION REPORT
Date of Procedure: 09/13/2023
Referring: Alexandru Alvarez M.D.
Indication: Heart failure, worsening systolic function.
PROCEDURE:
1. Right heart catheterization.
2. Left heart catheterization.
3. Coronary angiography.
ACCESS:
6 [place] right common femoral artery using a modified Seldinger technique with a micropuncture kit under ultrasound guidance.
5 [place] right common femoral vein using modified Seldinger technique with a micropuncture kit under ultrasound guidance.
CATHETERS:
1. 5 [place] balloon wedge.
2. 5 [place] JL 4.
3. 5 [place] JR4.
HEMODYNAMIC DATA
Weight (kg): 105.7
AO (s/d/x mmHg): 96/61/73
LV (s/x mmHg): 96/10
PCWP (a/v/x mmHg): 19//
PA (s/d/x mmHg): 35/17/23
RV (s/x mmHg): 35/
RA (a/v/x mmHg):
SVC SvO2 (%): 52.4
PA SvO2 (%): 50.9
SaO2 (%): 99.7
Hbg (g/dL): 13.0
CO (L/min): 2.91
CI (L/min/m2): 1.36
TPG (mmHg): 10
PVR (Moser Units): 3.44
SVR (dynes*seconds*cm^-5): 1787
AVO2 Diff (Volume %): 8.63
AV gradient (x, mmHg): None.
AV area (cm2): Normal.
LEFT VENTRICULOGRAPHY: Not performed.
CORONARY ANGIOGRAPHY
Dominance: Right.
Left Main: Normal size, trifurcating vessel. There is no coronary artery disease.
LAD: Normal size vessel giving rise to 1 significant diagonal. The mid LAD is chronically totally occluded immediately after the takeoff of the master septal. There is a 40% lesion in the origin of the diagonal.
Ramus: Normal size vessel supplying much of the lateral wall. There are luminal irregularities throughout the body of the vessel. There is a 30% lesion in the mid vessel immediately proximal to a bifurcation into an upper and lower branch.
Circumflex: Small size, nondominant vessel giving rise to 1 obtuse marginal. The obtuse marginal is a small, 1.5 mm vessel that is diffusely diseased in its proximal margin, unamenable to PCI.
RCA: Large size, dominant vessel with a large posterolateral arcade supplying much of the circumflex territory. There are minor luminal irregularities throughout the body of the vessel. There is a 50% lesion in the distal third of the RPDA.
INTERVENTIONS
None.
Closure Device: Manual pressure for femoral arterial and venous access.
Radiation dose (mGy): 652.53
DAP (cm2.Gy): 73.7314
Fluoroscopy time (minutes): 6.2
Sedation time (minutes): 0
CONCLUSIONS:
1. Right dominant circulation with a 50% lesion in the distal third of the RPDA, a diffusely diseased, small first obtuse marginal, a 30% lesion in the mid ramus, a 40% lesion in the origin of the first diagonal and a chronic total occlusion of the
mid LAD (known since cardiac catheterization in 1999).
2. Normal filling pressures (LVEDP = 10 mmHg, PCWP = 13 mmHg at 105.7 kg).
3. Severely impaired cardiac function (cardiac index = 1.36 L/min/m�, a VO2 difference 8.63 volume percent).
4. Mild precapillary pulmonary hypertension (mean PA pressure = 23 mmHg, PVR = 3.44 Moser units).
5. Significantly elevated peripheral vascular resistance (1787 dynes*seconds*cm^5).
RECOMMENDATIONS:
1. Expectant management after cardiac catheterization via femoral approach.
2. Limited weight bearing for one week.
3. Recommend against further diuresis given normal filling pressures, which may actually be relatively no given degree of systolic dysfunction.
4. Investigate primary pulmonary causes of hypoxic respiratory failure.
5. Consider inotropic support after mild volume resuscitation.
Copy to: Alexandru Alvarez M.D., Beverly Malagon PA-C
Butch Foreman, DO, FACC, FACP
[2023-09-13] MEDS: ZESTRIL PO (14:19)
[2023-09-13] MEDS: THERAGRAN PO (14:20)
[2023-09-13] MEDS: LANTUS 0.45 UNITS SC (14:29)
--- NOTE | 2023-09-13 14:33 | PTCARENOTE ---
Pt received from research lab assistant. Instructed on mobility and HOB restrictions. Site checks done per protocol, see intervention. Pt and updated on plan of care.
[2023-09-13 17:02] LABS: Glucose - Point of Care 150 mg/dl (70-99)
[2023-09-13] MEDS: NOVOLOG FLEXPEN-LOW RESISTANCE 1 UNITS SC (17:49)
[2023-09-13] MEDS: NOVOLOG FLEXPEN 5 UNITS SC (17:49)
--- NOTE | 2023-09-13 20:14 | RESPNOTE ---
Pt is refusing Bipap. Pt has tried to wear prescribed Bipap several times in past and has failed to tolerate. Will obtain order for BIPAP PRN
[2023-09-13] MEDS: DESENEX/MITRAZOL/ZEASORB TOPICAL (20:17)
[2023-09-13] MEDS: PEPCID 20 MG PO (20:17)
[2023-09-13 21:35] LABS: Glucose - Point of Care 257 mg/dl (70-99)
[2023-09-14] VITALS (9 sets, daily range): BP systolic 96–142; BP diastolic 65–102; PULSE 93–109; O2SAT 96–98; BMI 37.4
--- NOTE | 2023-09-14 00:52 | PTCARENOTE ---
Caring for patient overnight. received pt on bedrest post heart cath. OOB at 1915. R femoral dressing intact, ecchymotic around site and groin but per report that has been there and team is aware. Doppler pulses. VSS, bp's starting to run soft but
pt asympto. Afib on monitor. Remains 2LNC, VIEYRA. NO swelling noted in lower extremities. aaox3 but forgetful at times. oob to BR & chair X1 assist with cane. Bed and chair alarm on. Will monitor.
[2023-09-14 05:16] LABS: Hematocrit 41.8 % (39.0-52.0); Hemoglobin 13.5 g/dL (13.0-18.0); Mean Corp Hgb Conc. 32.3 g/dL (33.0-37.0); Mean Corpuscular Hgb 27.2 pg (27.0-31.0); Mean Corpuscular Volume 84.3 fL (80.0-94.0); Mean Platelet Volume 10.9 fL (7.4-10.4); Platelet Count 271 10^3/uL (130-400); Red Blood Cell Count 4.96 10^6/uL (4.70-6.10); Red Cell Dist. Width 18.5 % (11.5-14.5); White Blood Cell Count 10.3 10^3/uL (4.8-10.8)
[2023-09-14 05:42] LABS: Blood Urea Nitrogen 48 mg/dl (9-20); Calcium 9.5 mg/dl (8.4-10.2); Carbon Dioxide 25 mmol/L (22-30); Chloride 99 mmol/L (98-107); Estimated Creatinine Clearance 49 ml/min; Glucose 162 mg/dl (70-99); Magnesium 2.2 mg/dl (1.6-2.3); Phosphorus 6.4 mg/dl (2.5-4.5); Potassium 4.4 mmol/L (3.5-5.1); Sodium 137 mmol/L (135-145); eGFR 48.55
--- NOTE | 2023-09-14 06:50 | W.PN.HOSP.TC ---
Today's Communication/Plan
-
discharge
Assessment / Plan
Assessment / Plan
Physical Exam
General: Morbidly Obese
HEENT: NormoCephalic, Moist mucous membranes and Atraumatic
Respiratory: Clear to Auscultation b/l
Cardiac: S1/S2 and Regular Rhythm
GI: Soft, Non Tender and Normal Bowel Sounds
Musculoskeletal: No Cyanosis, 1+ Edema LE b/l
Skin: Warm and Dry
Neuro: AO x 3
Psych: Calm and Intact Judgment/Insight
HPI: 72M chronic atrial fibrillation, heart failure, myocardial infarction, coronary artery disease, transient ischemic attack, peripheral vascular disease, COPD (not on home oxygen), type 1 diabetes mellitus, hypertension, hyperlipidemia, spinal
stenosis, degenerative joint disease, sleep apnea (not on home CPAP), obesity, COVID in July 2022, p/w shortness of breath starting night prior. Patient says even with any movement his shortness of breath came about and got worse. Denied coughing
fever or chest pain.
Acute Hypoxic Respiratory Failure due to heart failure and possible progression COPD
COPD -- not on home oxygen as per patient
History of CHF
Acute HFrEF
-IMU Admit
-Patient needed BiPAP and oxygen on admission, since weaned off BIPAP
-IV Lasix placed on hold 09/12 d/t mild RAUL Cr elevation 1.5 baseline 1.1
-Daily weights and I's and O's
-L & R heart cath 09/12 appreciated normal filling pressures
-Continue home bronchodilators or inpatient equivalent
-CXR appreciated Congestive Heart Failure
-Pulm consult appreciated
-ECHO appreciated HFrEF 30-35% decreased from 2021 study 40%
-BNP 3590
Cardio eval appreciated
-new dry weight approx 108 kg
-ok for discharge on home lasix 40 mg daily
-Continue Jardiance 10 mg daily, Toprol-XL 25 mg daily, lisinopril 10 mg daily, and spironolactone 25 mg daily.
-Reevaluate LVEF in 3 months to see if ICD implantation is indicated (if LVEF remains less than 35%) for primary prevention of sudden cardiac
Patient is in need of oxygen on exertion due to pulse oximetry of 92% on room air at rest; 86% on room air with exertion.
Patient was placed on 2L O2 via nasal cannula with saturation of 96%. Oxygen will help to improve hypoxemia.
Patient is mobile within the home. Albuterol therapy has been discussed and is ineffective in treating hypoxemia-related symptoms.
Oxygen will improve the patient's symptoms.
Chronic atrial fibrillation
-Continued home Eliquis 5 mg BID
History of myocardial infarction
Coronary artery disease
Transient ischemic attack
Peripheral vascular disease
-Patient had left lower extremity arteriogram with angioplasty and stent to SFA and angioplasty to PT on September 06, 2023 (records are in [facility])
-Continue Aspirin, Statin, Eiliquis
Type 1 diabetes mellitus
-home oral diabetes medications held on admission
-Continue Insulin Sliding Scale and Accuchecks
-Jardiance added as per Cardio for heart failure
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
Hypertension
-Continue home Toprol XL 25 mg PO daily
Hyperlipidemia
-Continue Atorvastatin
Spinal stenosis
Degenerative joint disease
Sleep apnea (not on home CPAP)
Obesity
COVID in July 2022
PT/OT appreciated home health vs no needs (patient declines home health)
Diet: Diabetic, Fluid-Restricted and Sodium-Restricted Diet
DVT Prophylaxis: Eliquis
Medically stable for discharge with home oxygen and outpatient follow up recommendations.
Total Time Preparing Discharge __50 minutes including examination of the patient, summary of the hospital stay, instructions for continuing care to all relevant caregivers; and preparation of discharge records, prescriptions, and referral
forms if necessary.
Anticipated Discharge: Today
Subjective/Interval History
-
Date of Service: September 14, 2023
Seen and examined at bedside in no acute distress sitting up comfortably in chair. Overall reports feeling well. Denies new acute issues at this time. Eager to go home.
Objective Data
-
Labs:
Laboratory Results
09/14/23 09/14/23
04:35 04:36
WBC 10.3
Hgb 13.5
Hct 41.8
Plt Count 271
Sodium 137
Potassium 4.4
Chloride 99
Carbon Dioxide 25
BUN 48 H
Creatinine 1.5 H
Glucose 162 H
Calcium 9.5
Vital Signs:
Vital Signs
Temp Pulse Resp BP Pulse Ox
97.5 F 83 18 97/67 95
09/14/23 06:45 09/14/23 06:00 09/14/23 06:00 09/14/23 06:00 09/14/23 06:00
I&O
09/12/23 09/13/23 09/14/23
06:59 06:59 06:59
Intake Total 480 / 480 660 / 660
Output Total 1150 / 1150 200 / 200
Balance -670 / -670 660 / 660 -200 / -200
[2023-09-14] MEDS: PULMICORT 0.5 MG INH (07:22)
[2023-09-14] MEDS: SPIRIVA RESPIMAT 2.5 MCG 2 PUFF INH (07:22)
[2023-09-14] MEDS: STRIVERDI RESPIMAT 2 PUFF INH (07:23)
[2023-09-14] MEDS: NOVOLOG FLEXPEN 5 UNITS SC (07:37)
[2023-09-14] MEDS: NOVOLOG FLEXPEN-LOW RESISTANCE 1 UNITS SC (07:38)
[2023-09-14 07:48] LABS: Glucose - Point of Care 162 mg/dl (70-99)
[2023-09-14] MEDS: ALDACTONE 25 MG PO (08:51)
[2023-09-14] MEDS: VITAMIN D3 (cholecalciferol) 25 MCG PO (08:51)
[2023-09-14] MEDS: VISBIOME 1 CAP PO (08:51)
[2023-09-14] MEDS: LIPITOR 40 MG PO (08:51)
[2023-09-14] MEDS: JARDIANCE 10 MG PO (08:51)
[2023-09-14] MEDS: LASIX 40 MG PO (08:51)
[2023-09-14] MEDS: ASPIR LOW (ENTERIC COATED) 81 MG PO (08:51)
[2023-09-14] MEDS: TOPROL XL 25 MG PO (08:52)
[2023-09-14] MEDS: LANTUS 0.45 UNITS SC (08:52)
[2023-09-14] MEDS: HYDROPHOR 1 APPLIC TOPICAL (08:52)
[2023-09-14] MEDS: DESENEX/MITRAZOL/ZEASORB 1 APPLIC TOPICAL (08:52)
--- NOTE | 2023-09-14 08:52 | W.PN.CD ---
Today's Communication / Plan
-
-Right heart catheterization yesterday showed that the patient is actually dry; over-diuresed.
-Dry weight as of May 2023 seemed to be 111 kg; new dry weight is likely approximately around 108 kg.
-Patient can be discharged home today on his usual dose of Lasix to 40 mg daily.
-Continue Jardiance 10 mg daily, Toprol-XL 25 mg daily, lisinopril 10 mg daily, and spironolactone 25 mg daily.
-Reevaluate LVEF in 3 months to see if ICD implantation is indicated (if LVEF remains less than 35%) for primary prevention of sudden cardiac .
-Resume/continue Eliquis.
-Patient should continue home dose of atorvastatin 40 mg daily; LDL was 56 (goal less than 55).
-Outpatient follow-up with Cardiology.
Impression / Plan
-
Background 72 year-old male (known to Dr. 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
permanent atrial fibrillation (on Eliquis), chronic RBBB, LAFB, hypertension, hyperlipidemia, peripheral arterial disease (followed by Vascular Surgery), diabetes, obesity, COPD (followed by Pulmonary), and obstructive sleep apnea�admitted with CHF
exacerbation.
Impression
Acute on chronic HFrEF -EF now declined to 30-35% from 40-45%.
-Nonobstructive CAD on cardiac catheterization yesterday.
-Right heart catheterization yesterday showed that the patient is actually dry; over-diuresed.
-Dry weight as of May 2023 seemed to be 111 kg; new dry weight is likely approximately around 108 kg.
-Patient can be discharged home today on his usual dose of Lasix to 40 mg daily.
-Continue Jardiance 10 mg daily, Toprol-XL 25 mg daily, lisinopril 10 mg daily, and spironolactone 25 mg daily.
-Reevaluate LVEF in 3 months to see if ICD implantation is indicated (if LVEF remains less than 35%) for primary prevention of sudden cardiac .
Permanent A-fib
-Fairly rate controlled.
-Continue current dose of Toprol-XL; unable to increase due to blood pressure limitations.
-Resume/continue Eliquis.
CAD with history of TN
-Cardiac catheterization yesterday did not reveal progressive coronary artery disease.
-Patient should continue home dose of atorvastatin 40 mg daily; LDL was 56 (goal less than 55).
-Counseled on the importance of appropriate dietary/lifestyle management.
Hypertension -controlled.
COPD, ERICK
PAD s/p stenting-stable
DM type 2, on insulin -hemoglobin A1c 7.3%.
TIA.
Obesity -weight loss recommended.
Subjective
No major events overnight. No cardiac complaints this a.m.
Data
Troponins-0.0-3-09/10/2023
proBNP 959 (03/14/2022), 09/10/[id number].
Echocardiogram-03/25/[id number] to 45%, mild concentric left ventricular hypertrophy.
Nuclear stress [id number] and anteroseptal ischemia with EF 43%.
Physical Exam
Vital Signs/Labs
Vital Signs
Temp Pulse Resp BP Pulse Ox
97.5 F 94 15 97/67 97
09/14/23 06:45 09/14/23 07:29 09/14/23 07:29 09/14/23 06:00 09/14/23 07:29
09/13/23 09/14/23 09/15/23
06:59 06:59 06:59
Actual Weight 105.8 kg 105.1 kg
09/14/23 04:36
09/14/23 04:35
PT 21.1 Sec (11.4-14.6) H 09/10/23 08:19
INR 1.81 09/10/23 08:19
APTT 38.4 Sec (23.4-35.0) H 09/10/23 08:19
Magnesium 2.2 mg/dl (1.6-2.3) 09/14/23 04:35
Triglycerides 95 mg/dl (10-149) 09/13/23 04:15
LDL Cholesterol, Calc 56 mg/dl 09/13/23 04:15
VLDL Cholesterol, Calc 19 mg/dl (0-30) 09/13/23 04:15
HDL Cholesterol 34 mg/dl 09/13/23 04:15
09/10/23
07:53
[id number] Pept 3590
Physical Exam
Constitutional: No acute distress and Comfortable
EENT: Anicteric
Cardiovascular: Pedal edema is absent, Systolic murmur absent, Rhythm/rate is irregular and S1S2 is normal
Respiratory: Respiratory effort normal and Lungs clear to auscul.
GI: Soft
Neuro/Psych: AO x 3
Other: Skin (Warm, dry, intact)
Data Reviewed
-
Date of Service: September 14, 2023
EKG: Tracing Personally Visualized and interpreted (Telemetry: A-fib)
Medical Tests (PFT, Pathology etc): Discussed with Physician (Primary Hospitalist), Discussed with Nurse and Discussed with Patient
Labs: Labs Reviewed by me
--- NOTE | 2023-09-14 09:00 | PN.DE.MGMTRT ---
Insulin Management
- -
09/14/2023 Diabetes Management Consult Follow up
Patient admitted 09/09 with acute hypoxic respiratory distress. Diabetes management consult 09/12. PMH chronic a fib, CHF, FL, CAD, TIA, PVD, COPD, diabetes, HTN, HLD, djd, sleep apnea, obesity
Prior to admission patient states he was taking Tresiba 45 units daily with novolog 7 to 20 units AC and metformin 1000 BID. A1C 7.3, cr 1.5, eGFR 48.55. Cardiology has started Jardiance 10 mg daily.
Patient is awake alert and oriented able to discuss diabetes regimen.
Lantus 45 units daily restarted 09/12, glucose improved pre dinner 150, hs 257. Fasting glucose 09/13 162. Will increase AC novolog to 10 units and continue lantus 45 units with Jardiance 10 mg daily.
CR 1.5, eGFR 48.55 today. Will not restart metformin due to cr/eGFR.
Will follow
Diabetes History
- -
Type of Diabetes: 2 requiring insulin
Pre-Admission Diabetes Regimen
09/14/23
04:35
Creatinine 1.5 H
Lab Results
Hemoglobin A1c 7.3 % (4.0-5.6) H 09/11/23 03:14
Insulin Pump Settings
IP Diabetes Regimen
09/13/23 09/13/23 09/13/23
11:41 16:50 21:23
Glucose
POC Glucose 241 H 150 H 257 H
09/14/23 09/14/23
04:35 07:36
Glucose 162 H
POC Glucose 162 H
Meal type: Lunch
Patient Education
--- NOTE | 2023-09-14 10:06 | W.HF.CON ---
Heart Failure
- LV Function
Left ventricular function study result: LV Ejection fraction </= 35%
Ejection Fraction Percentage: 30-35
- ARNI
Patient already on ARNI: No
Heart Failure ARNI Contraindication: Acute Renal Failure
- ACEI/ARB
Patient already on ACEI/ARB: Yes
- Beta Anya
Patient already on Evidence Based Beta Anya: Yes
- Mineralocorticord Receptor Antagonist
Patient already on MRA: Yes
- SGLT-2 Inhibitor
Patient already on SGLT-2 Inhibitor: Yes
- Afib Anticoagulation
Patient already on Anticoagulation for Afib: Yes
- NYHA CHF Classification
NYHA CHF Classification Level: Class III - Symptoms w/ min exertion, interferes w/ nml daily activity
- ACC/AHA Stage
ACC/AHA Stage: Stage C: Symptomatic Heart Failure
--- NOTE | 2023-09-14 10:18 | W.PN.UPDATE ---
Update Note
Progress Note Update
Patient is in need of oxygen on exertion due to pulse oximetry of 92% on room air at rest; 86% on room air with exertion.
Patient was placed on 2L O2 via nasal cannula with saturation of 96%. Oxygen will help to improve hypoxemia.
Patient is mobile within the home. Albuterol therapy has been discussed and is ineffective in treating hypoxemia-related symptoms.
Oxygen will improve the patient's symptoms.
--- NOTE | 2023-09-14 10:51 | CM ---
Patient with Dx Acute Hypoxic Respiratory Failure. O2 2L.
Home O2 Assessment today. Dr Lewis ordering 2L O2 with exertion/activity.
Met with patient who was preparing for d/c. The patient says he feels ready to go home today - IMM completed.
The patient agrees to home O2 through [employer] and is aware they will be delivering portable O2 tank to his hospital room prior to d/c today. Patient would like a POC shoulder tank when possible- informed him it was added to his O2 order and [employer]
will provide that in 1-2 weeks, and he agrees.
Offered VN for heart failure education and patient declined, despite saying he wants more information about heart failure.
His or daughter will provide transport home today.
Spoke with Harley Dent; she will deliver the portable O2 to patient's room and concentrator will be delivered once patient arrives home. POC shoulder tank will be provided in 1-2 weeks.
Plan home today with Home O2 through [employer].
[2023-09-14] MEDS: NOVOLOG FLEXPEN 10 UNITS SC (11:51)
[2023-09-14] MEDS: NOVOLOG FLEXPEN-LOW RESISTANCE 2 UNITS SC (11:52)
[2023-09-14] MEDS: ZESTRIL 10 MG PO (11:53)
[2023-09-14] MEDS: THERAGRAN 1 TABLET PO (11:53)
[2023-09-14 11:58] LABS: Glucose - Point of Care 239 mg/dl (70-99)
--- NOTE | 2023-09-14 12:55 | W.DCSUMMARY ---
Discharge Summary
Discharge Data
Date of Admission: 09/10/23
Date of Discharge: 09/14/23
-
Pending Results: No
Discharge Plan
-
Patient Disposition: Home (Routine Discharge)
Discharge Diagnosis/Procedures: cardiac catheterization 09/13/23
Acute on Chronic Heart Failure with Reduced Ejection Fraction
Acute Hypoxic Respiratory Failure likely due to heart failure and possibly progression COPD vs obesity hypoventilation syndrome
COPD
Obesity
Permanent Atrial Fibrillation
Coronary Artery Disease with history Myocardial Infarction
Hypertension
Peripheral Artery Disease
Diabetes
Hyperlipidemia
Obstructive Sleep Apnea
Mild Acute Kidney Injury likely from over diuresis
Condition: Fair
Diet: 2 Gram Sodium and Diabetic, Carb Controlled
Activity: As tolerated
Driving Restrictions: As prior to admission
Bathing Restrictions: None
Blood Work: Please repeat BMP with primary care provider in 1 week of discharge.
Specialty Instructions: Weigh Daily- Call MD for wt gain/loss 3 lbs overnight/5 lbs in 1 week
Activity Restrictions/Additional Instructions:
Wound Care Instructions
L FOOT AND LEG: Clean with soap and water, mineral oil daily
Follow up with Dr. Carr as scheduled.
Please follow up with primary care provider in 1 week of discharge, Pulmonology in 2-4 weeks of discharge, and keep your appointments with Cardiology.
metformin 1,000 mg tablet 1,000 mg PO BID Diabetes
apixaban 5 mg tablet (Eliquis) 5 mg PO BID for atrial fibrillation
cholecalciferol (vitamin D3) 25 mcg (1,000 unit) tablet 1,000 units PO DAILY Nutrition Supplement
insulin aspart U-100 100 unit/mL subcutaneous solution (Novolog U-100 Insulin aspart) 7 - 20 units SC AC for Diabetes
Bifidobacterium infantis 4 mg capsule (Align) 4 mg PO DAILY probiotic for gut health
albuterol sulfate 90 mcg/actuation aerosol inhaler 2 puff inhalation R Q6HPRN PRN for COPD
atorvastatin 20 mg tablet 40 mg PO DAILY High Cholesterol
dicyclomine 20 mg tablet 20 mg PO DAILYPRN PRN for irritable bowel syndrome
famotidine 20 mg tablet 20 mg PO HS for GERD
furosemide 40 mg tablet 40 mg PO NOON for heart failure
insulin degludec 100 unit/mL (3 mL) subcutaneous pen (Tresiba FlexTouch U-100 insulin) 45 unit SC DAILY for Diabetes
metoprolol succinate 25 mg tablet,extended release 24 hr 25 mg PO DAILY for Heart Failure and Hypertension
multivitamin 1 tab PO NOON Nutrition Supplement
umeclidinium 62.5 mcg-vilanterol 25 mcg/actuation powdr for inhalation (Anoro Ellipta) 1 inh inhalation R DAILY for COPD
aspirin 81 mg tablet,delayed release 81 mg PO DAILY For Coronary and Peripheral Artery Disease
nystatin 100,000 unit/gram topical powder 1 applic topical DAILY groin fungal infection
New/Changed Medications
empagliflozin 10 mg tablet (Jardiance) 10 mg PO DAILY for heart failure and diabetes
lisinopril 10 mg tablet 10 mg PO NOON for hypertension and heart failure (dose increased from home 5 mg daily regimen)
Spironolactone 25 mg Tablet daily for heart failure and hypertension
Please take medications as prescribed/recommended and follow up with primary care provider and/or other healthcare provider involved in your care for refills and/or further adjustment to your medication regimen as necessary.
Instructions: *CBC Heart Failure Instructions
Referrals:
Alexandru Alvarez MD [Active] - 10/10/23 10:20 am (cardiology followup appointment)
Beverly Malagon PA-C [Family Provider] - in one week
Beatris Pozo CRNP [Specified Professional Personl] - 09/20/23 3:40 pm
Chanelle Orr CRNP [Specified Professional Personl] - in two to four weeks
Prescriptions:
New
Jardiance 10 mg Tablet
10 mg PO DAILY 30 Days Qty: 30 0RF
lisinopril 10 mg Tablet
10 mg PO NOON 30 Days Qty: 30 0RF
spironolactone 25 mg Tablet
25 mg PO DAILY 30 Days Qty: 30 0RF
Continued
metformin 1,000 MG tablet
1,000 mg PO BID
Hold Instructions: Resume on 09/09/23.
insulin aspart U-100 [Novolog U-100 Insulin aspart] 1,000 UNITS/10 ML solution
7 - 20 units SC AC
cholecalciferol (vitamin D3) 1,000 UNITS tablet
1,000 units PO DAILY
Eliquis 5 MG tablet
5 mg PO BID
Hold Instructions: Resume on 09/07/23. Resume with your morning dose tomorrow
multivitamin Tablet
1 tab PO NOON
furosemide 40 mg Tablet
40 mg PO NOON
atorvastatin 20 mg Tablet
40 mg PO DAILY
famotidine 20 mg Tablet
20 mg PO HS
dicyclomine 20 mg Tablet
20 mg PO DAILYPRN PRN (Reason: IBS)
metoprolol succinate 25 mg Tablet Extended Release 24 Hr
25 mg PO DAILY
albuterol sulfate 90 mcg/actuation Hfa Aerosol Inhaler
2 puff INHALATION R Q6HPRN PRN (Reason: COPD)
Align 4 mg Capsule
4 mg PO DAILY
Anoro Ellipta 62.5-25 mcg/actuation Blister With Device
1 inh INHALATION R DAILY
insulin degludec [Tresiba FlexTouch U-100] 100 unit/mL (3 mL) Insulin Pen
45 unit SC DAILY Qty: 0
nystatin 100,000 unit/gram Powder
1 applic TOPICAL DAILY
aspirin 81 mg Tablet,Delayed Release (Dr/Ec)
81 mg PO DAILY Qty: 90 0RF
Discontinued
lisinopril 5 MG tablet
5 mg PO NOON
Discharge Orders:
Discharge Patient (As Directed); Ordered 09/14/23
Ordered By: Girish Lewis
Discharge Date and Time
Print Language: TAJIK
--- NOTE | 2023-09-14 13:11 | PTCARENOTE ---
DC packet reviewed with patient. All questions answered. IV and tele removed. Home O2 delivered and at bedside. VSS. Patient waiting for family to take him home. To be taken by wheelchair to car.
--- NOTE | 2023-09-14 13:21 | W.PN.PUL3 ---
Today's Communication / Plan
-
Continue Striverdi/Spiriva --> resume Anoro upon discharge
Continue Budesonide; given absolute eosinophils of 500 this admission with evidence of asthma on PFTs, would try to DC on Breztri vs Trelegy or simply add an ICS upon discharge
Cardiology recommendations appreciated
Trend I's/O with monitoring of sCr and UOP
LHC/RHC performed on 09/12, showing pre-capillary pulmonary HTN --> diuresis stopped - GDMT as per cardiology
Further evaluation as an outpatient including repeating CT chest to assess interstitial changes seen on last CT chest in 10/2022
Patient being prepared for discharge home today. We will arrange for follow-up in our office for 6MWT, and management of his asthma and consider additional workup if his pre-capillary pulmonary hypertension.
Pulmonary service will now sign off. Please reconsult if there are any additional questions/concerns, or if patient's respiratory status deteriorates.
Assessment
-
72-year-old male with history of coronary disease with KS in the past, heart failure, atrial fibrillation, sleep apnea intolerant to CPAP with recent angiogram per vascular surgery 09/06/2023. At that time he was told his oxygen level was in the high
80s. He is asymptomatic. Over the last 24 to 48 hours he has noticed increased shortness of breath, particularly at nighttime. He denies roger PND but normally he sleeps in a recliner. His shortness of breath is worse at night versus during the
daytime. This morning, when walking up the steps he was short of breath which is unusual for him. For this reason he brought himself into [facility]. Admitted for heart failure. We are asked to comment on compartment COPD
Impression:
Acute hypoxic respiratory insufficiency likely due to acute HFrEF exacerbation
86% on room air
Bilateral infiltrates, suggestive of pulm edema
History of heart failure, cardiomyopathy now with worsened LVEF at 30-35% via updated TTE from 09/11/2023
EF 40% per echocardiogram 2021
Mild leukocytosis - now resolved
Conditions present prior to admission
Hypertension/hyperlipidemia
Morbid obesity
Left anterior fascicular block, chronic
History of persistent atrial fibrillation on Eliquis
Coronary disease with history of KS 20+ years ago
History of TIA
Severe sleep apnea, failed CPAP 2021
Diabetes
Chronic DJD, back pain
[id number], quit
PAD
Plan/recommendations
At this time, patient appears to be comfortable.
Per ED records, patient was tachypneic, conversational dyspnea. No comment on breath sounds
Moving forward
Transthoracic echo from 09/11/2023 shows declined LVEF at 30-35% down from 40% in 2021
Patient follows cardiology (Kim)
Elevated proBNP 3590 noted from 09/10/2023
His O2 requirements have improved
He underwent LHC and RHC on 09/13/2023 showed reduced CI and low PCWP with slightly elevated PADP with mild pHTN (mPAP: 23mmHg)- no additional diuresis
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
Cardiology recs appreciated
Repeat echocardiogram from 09/11/2023 with worsening LVEF of 30-35% with anterior apical hypokinesis�akinesis (of note he has had an LAD regional wall motion abnormality in the past, seen on prior TTE from March 2021)
GDMT as per cardiology
Rate control with goal HR<110bpm
Replete K>4, Mg>2
Other etiologies to consider include inflammatory pneumonitis.
Patient had COVID test and flu test which is negative
denies any symptoms concerning for infection
Given his symptoms primarily being nocturnal, suspected this to be cardiac
Patient is at risk for thromboembolic disease, especially with recent procedure. This is less likely on Eliquis therapy.
Continue with outpatient therapy for asthma (best seen on PFT from 11/2021 when his obstructive defect fully reversed and his DLco/VA is normal when compared to DLco, and that pattern is seen with his diffusion capacity on many of his PFTs); no COPD
as per last PFT from Mar 2023
Given his mild pHTN and Hx of severe ERICK intolerant to CPAP, do not think other etiologies need to be investigated. Otherwise, could consider checking V/Q to r/o CTEPH; he does have interstitial changes on last CT chest from 10/2022 - CT chest
should be repeated as an outpatient, which can be discussed in the office
Home O2 assessment performed today and he requires 2 L/min with exertion --> case management to assist with setting this up
DVT ppx: Eliquis
Patient being prepared for discharge home today. We will arrange for follow-up in our office for 6MWT, and management of his asthma and consider additional workup if his pre-capillary pulmonary hypertension.
Pulmonary service will now sign off. Thank you for allowing us to be involved in the care of this patient. Please reconsult if there are any additional questions/concerns, or if patient's respiratory status deteriorates.
Total time spent today was 35 minutes for this encounter. Time includes reviewing laboratory test/imaging results, reviewing pertinent medical records, obtaining and reviewing medical history, performing an appropriate exam, ordering medications,
tests and procedures. Time also includes documentation of this encounter, coordinating patient care and communicating with other healthcare professionals. Total time does not include separately billed tests performed on this date of service.
Subjective Data
-
Date of Service:
Date of Service: September 14, 2023
Chief Complaint: Pulmonary Follow Up
Subjective:
Patient seen today at bedside. Being discharged home today. No acute events reported from overnight. Home oxygen assessment being done and he desaturated to 86% with activity, requiring 2 L minute with exertion. He denies chest pain, headache,
fevers or chills, although he did have chest pain earlier this morning.
Review of Systems
General: Other (Negative unless mentioned above)
Objective Data
Data Reviewed
Vital Signs / I&O / Oxygen:
Vital Signs
Temp Pulse Resp BP Pulse Ox
96.3 F L 101 18 142/102 98
09/14/23 11:28 09/14/23 12:00 09/14/23 12:00 09/14/23 11:54 09/14/23 12:00
Intake and Output
09/13/23 09/14/23 09/15/23
06:59 06:59 06:59
Intake Total 660 / 660
Output Total 200 / 200
Balance 660 / 660 -200 / -200
SaO2 98
Nasal Cannula flow liters per 2
minute
Physical Exam
General: Respiratory Distress (Negative), Comfortable and Other (Morbid obesity)
HEENT: Normocephalic, Anicteric and Other (Thick neck)
Cardiovascular: Irregular Rhythm and Peripheral Edema (Trace LE edema)
Respiratory: Wheeze (Negative), Crackles (Bibasilar to middle-lung montoya), Rhonchi (Negative) and Accessory Resp Muscle Use (Negative)
GI: Soft, Distended (Abdominal obesity), Non Tender and Normal Bowel Sounds
Neurology: Awake, Alert and Tremors (Negative)
Skin: Warm, Dry and Jaundice (Negative)
Labs/Micro/Reports
Lab Data
09/14/23 04:36
09/14/23 04:35
== END 2023-09-14 13:45 | disposition home or self-care (01) | DRG 286 ==
LOC: IMU 12:28
PROVIDERS: Internal Medicine Cardiovascular Disease; Nurse Practitioner; Physician Assistant; ADMITTING PHYSICIAN Hospitalist; ATTENDING PHYSICIAN Internal Medicine; CONSULT PHYSICIAN Internal Medicine Cardiovascular Disease; CONSULT PHYSICIAN Internal Medicine Critical Care Medicine; EMERGENCY PHYSICIAN Emergency Medicine; FAMILY PHYSICIAN Physician Assistant Medical
PROC: 5A09357 Assistance with Respiratory Ventilation, Less than 24 Consecutive Hours, Continuous Positive Airway Pressure (ICD-10-PCS; 2023-09-10)
PROC: 4A023N8 Measurement of Cardiac Sampling and Pressure, Bilateral, Percutaneous Approach (ICD-10-PCS; 2023-09-13)
PROC: B2111ZZ Fluoroscopy of Multiple Coronary Arteries using Low Osmolar Contrast (ICD-10-PCS; 2023-09-13)
DX: I11.0 Hypertensive heart disease with heart failure (principal); I50.23 Acute on chronic systolic (congestive) heart failure; J96.01 Acute respiratory failure with hypoxia; I48.21 Permanent atrial fibrillation; E66.2 Morbid (severe) obesity with alveolar hypoventilation; N17.9 Acute kidney failure, unspecified; Z68.41 Body mass index [BMI] 40.0-44.9, adult; I27.20 Pulmonary hypertension, unspecified; E11.51 Type 2 diabetes mellitus with diabetic peripheral angiopathy without gangrene; J44.9 Chronic obstructive pulmonary disease, unspecified; Z95.820 Peripheral vascular angioplasty status with implants and grafts; Z79.01 Long term (current) use of anticoagulants; I44.4 Left anterior fascicular block; I25.10 Atherosclerotic heart disease of native coronary artery without angina pectoris; I25.2 Old myocardial infarction; E78.5 Hyperlipidemia, unspecified; G47.33 Obstructive sleep apnea (adult) (pediatric); D72.829 Elevated white blood cell count, unspecified; Z79.82 Long term (current) use of aspirin; Z79.4 Long term (current) use of insulin; Z79.84 Long term (current) use of oral hypoglycemic drugs; Z79.899 Other long term (current) drug therapy; Z86.73 Personal history of transient ischemic attack (TIA), and cerebral infarction without residual deficits; Z87.891 Personal history of nicotine dependence; Z86.16 Personal history of COVID-19; Z11.52 Encounter for screening for COVID-19; Z88.5 Allergy status to narcotic agent; Z88.6 Allergy status to analgesic agent; Z96.651 Presence of right artificial knee joint; Z83.3 Family history of diabetes mellitus
CPT/HCPCS: 71046; 80048; 80053; 80061; 82962; 83036; 83735; 83880; 84100; 84484; 85025; 85027; 85610; 85730; 86803; 87502; 87811; 93005; 93306; 93460; 94640; 94660; 96374; 97116; 97162; 97167; 97535; 99285; C1769; C1894; Q9967

== ENCOUNTER → 2023-09-25 10:43 | Outpatient (REF) | payer MEDICARE, OTHER, SELFPAY ==
[2023-09-25 15:44] LABS: Blood Urea Nitrogen 68 mg/dl (9-20); Calcium 9.9 mg/dl (8.4-10.2); Carbon Dioxide 21 mmol/L (22-30); Chloride 101 mmol/L (98-107); Glucose 91 mg/dl (70-99); Potassium 6.1 mmol/L (3.5-5.1); Sodium 135 mmol/L (135-145); eGFR 48.55
== END ==
LOC: HWLAB 10:43
PROVIDERS: ATTENDING PHYSICIAN Nurse Practitioner Gerontology; FAMILY PHYSICIAN Physician Assistant Medical
DX: I50.22 Chronic systolic (congestive) heart failure (principal)
CPT/HCPCS: 36415; 80048

== ENCOUNTER → 2023-09-27 06:28 | Outpatient (REF) | payer MEDICARE, OTHER, SELFPAY ==
[2023-09-27 10:47] LABS: Blood Urea Nitrogen 66 mg/dl (9-20); Calcium 9.6 mg/dl (8.4-10.2); Carbon Dioxide 25 mmol/L (22-30); Chloride 101 mmol/L (98-107); Glucose 77 mg/dl (70-99); Potassium 5.7 mmol/L (3.5-5.1); Sodium 136 mmol/L (135-145); eGFR 41.78
== END ==
LOC: HWLAB 06:28
PROVIDERS: ATTENDING PHYSICIAN Internal Medicine; FAMILY PHYSICIAN Physician Assistant Medical
DX: I25.5 Ischemic cardiomyopathy (principal)
CPT/HCPCS: 36415; 80048

== ENCOUNTER → 2023-10-09 09:33 | Outpatient (REF) | payer MEDICARE, OTHER, SELFPAY | LOC: RAD 09:33 | PROVIDERS: ATTENDING PHYSICIAN Surgery Vascular Surgery; FAMILY PHYSICIAN Physician Assistant Medical | DX: I73.9 Peripheral vascular disease, unspecified (principal) | CPT/HCPCS: 93922; 93925 ==

== ENCOUNTER → 2023-10-11 06:16 | Outpatient (REF) | payer MEDICARE, OTHER, SELFPAY ==
[2023-10-11 09:58] LABS: ALT (SGPT) 24 U/L (0-50); AST (SGOT) 27 U/L (17-59); Albumin 3.9 g/dl (3.5-5.0); Alkaline Phosphatase 132 U/L (38-126); Blood Urea Nitrogen 61 mg/dl (9-20); Calcium 9.2 mg/dl (8.4-10.2); Carbon Dioxide 24 mmol/L (22-30); Chloride 101 mmol/L (98-107); Glucose 187 mg/dl (70-99); Sodium 135 mmol/L (135-145); Total Bilirubin 0.5 mg/dl (0.2-1.3); eGFR 44.93
== END ==
LOC: HWLAB 06:16
PROVIDERS: ATTENDING PHYSICIAN Internal Medicine; FAMILY PHYSICIAN Physician Assistant Medical
DX: I25.10 Atherosclerotic heart disease of native coronary artery without angina pectoris (principal); I10 Essential (primary) hypertension
CPT/HCPCS: 36415; 80053

== ENCOUNTER → 2023-11-07 06:30 | Outpatient (REF) | payer MEDICARE, OTHER, SELFPAY ==
[2023-11-07 09:48] LABS: ALT (SGPT) 21 U/L (0-50); AST (SGOT) 28 U/L (17-59); Albumin 4.1 g/dl (3.5-5.0); Alkaline Phosphatase 125 U/L (38-126); Blood Urea Nitrogen 31 mg/dl (9-20); Calcium 9.4 mg/dl (8.4-10.2); Carbon Dioxide 31 mmol/L (22-30); Chloride 99 mmol/L (98-107); Glucose 84 mg/dl (70-99); Potassium 4.2 mmol/L (3.5-5.1); Sodium 143 mmol/L (135-145); Total Bilirubin 0.9 mg/dl (0.2-1.3); Total Protein 7.5 g/dl (6.3-8.2); eGFR 57.29
[2023-11-07 11:40] LABS: Glycohemoglobin (HgbA1c) 7.2 % (4.0-5.6)
[2023-11-07 11:49] LABS: % Basophils 0.4 % (0-2); % Eosinophils 4.6 % (0-6); % Immature Granulocytes 0.3 % (0-0.5); % Lymphocytes 26.5 % (20.5-51.1); % Monocytes 7.5 % (1.7-9.3); % Neutrophils 60.7 % (42.2-75.2); Absolute Eosinophils 0.5 10^3/uL (0-0.7); Absolute Lymphocytes 2.8 10^3/uL (1.2-3.4); Absolute Monocytes 0.8 10^3/uL (0.1-0.6); Absolute Neutrophils 6.3 10^3/uL (1.4-6.5); Hematocrit 39.8 % (39.0-52.0); Hemoglobin 12.6 g/dL (13.0-18.0); Mean Corp Hgb Conc. 31.7 g/dL (33.0-37.0); Mean Corpuscular Hgb 26.7 pg (27.0-31.0); Mean Corpuscular Volume 84.3 fL (80.0-94.0); Mean Platelet Volume 11.5 fL (7.4-10.4); Nucleated Red Blood Cells % 0 % (-); Platelet Count 284 10^3/uL (130-400); Red Blood Cell Count 4.72 10^6/uL (4.70-6.10); Red Cell Dist. Width 18.5 % (11.5-14.5); White Blood Cell Count 10.4 10^3/uL (4.8-10.8)
== END ==
LOC: HWLAB 06:30
PROVIDERS: ATTENDING PHYSICIAN Specialist; FAMILY PHYSICIAN Physician Assistant Medical; REFERRING PHYSICIAN Internal Medicine Cardiovascular Disease
DX: I25.10 Atherosclerotic heart disease of native coronary artery without angina pectoris (principal); E11.9 Type 2 diabetes mellitus without complications; I10 Essential (primary) hypertension; I73.9 Peripheral vascular disease, unspecified; N18.31 Chronic kidney disease, stage 3a
CPT/HCPCS: 36415; 80053; 83036; 85025

== ENCOUNTER → 2023-12-06 07:08 | Outpatient (REF) | payer MEDICARE, OTHER, SELFPAY ==
[2023-12-06 10:19] LABS: Urine Albumin 1+ (Neg - Trace); Urine Bilirubin Negative (Negative); Urine Character Clear (Clear); Urine Color Yellow; Urine Glucose 3+ (Negative); Urine Ketone Negative (Negative); Urine Leukocyte Trace (Negative); Urine Nitrite Negative (Negative); Urine Occult Blood Negative (Negative); Urine Urobilinogen Negative (Neg - 1+)
[2023-12-06 11:39] LABS: Urine Amorphous Seen
[2023-12-06 11:40] LABS: Urine Red Blood Cell 0-2 /HPF (0-2); Urine White Cell 0-2 /HPF (0-5)
[2023-12-06 11:51] LABS: Blood Urea Nitrogen 36 mg/dl (9-20); Calcium 9.4 mg/dl (8.4-10.2); Carbon Dioxide 27 mmol/L (22-30); Chloride 100 mmol/L (98-107); Glucose 135 mg/dl (70-99); Potassium 3.9 mmol/L (3.5-5.1); Sodium 140 mmol/L (135-145); eGFR > 60.00
[2023-12-06 12:08] LABS: Urine Protein 90 mg/dl (0-12)
== END ==
LOC: HWLAB 07:08
PROVIDERS: ATTENDING PHYSICIAN Specialist; FAMILY PHYSICIAN Physician Assistant Medical
DX: I10 Essential (primary) hypertension (principal); N18.31 Chronic kidney disease, stage 3a; R80.1 Persistent proteinuria, unspecified
CPT/HCPCS: 36415; 80048; 81003; 81015; 82570; 84156

== ENCOUNTER → 2023-12-12 10:06 | Outpatient (REF) | payer MEDICARE, OTHER, SELFPAY ==
--- NOTE | 2023-12-12 11:25 | CARDSERVLU ---
Echocardiogram with Lumason completed after protocol screening completed. Allergies verified.
Patent IV site: _new start 22P LFA 1st attempt. ____
IV site flushed with 0.9% NaCl pre and post administration.
Diluted bolus method utilized to enhance visualization of ventricular dahl.
Total volume given: __6.5__ mL in divided doses under direction echosonographer.
Patient tolerated all procedures well without complications.
site dcd at completion of test.
== END ==
LOC: RCS 10:06
PROVIDERS: ATTENDING PHYSICIAN Internal Medicine; FAMILY PHYSICIAN Physician Assistant Medical
DX: I50.32 Chronic diastolic (congestive) heart failure (principal)
CPT/HCPCS: 93306; Q9950

== ENCOUNTER 2024-01-28 10:56 | Inpatient (IN) | payer MEDICARE, OTHER, SELFPAY ==
[2024-01-28] VITALS (9 sets, daily range): BP systolic 110–133; BP diastolic 62–80; BMI 39.8
[2024-01-28 07:22] LABS: % Basophils 0.1 % (0-2); % Eosinophils 0.1 % (0-6); % Immature Granulocytes 0.6 % (0-0.5); % Lymphocytes 5.6 % (20.5-51.1); % Monocytes 6.3 % (1.7-9.3); % Neutrophils 87.3 % (42.2-75.2); Absolute Immature Granulocytes 0.1 10^3/uL (0-0.05); Absolute Monocytes 1.1 10^3/uL (0.1-0.6); Absolute Neutrophils 15.8 10^3/uL (1.4-6.5); Hematocrit 33.8 % (39.0-52.0); Hemoglobin 10.6 g/dL (13.0-18.0); Mean Corp Hgb Conc. 31.4 g/dL (33.0-37.0); Mean Corpuscular Hgb 26.6 pg (27.0-31.0); Mean Corpuscular Volume 84.9 fL (80.0-94.0); Mean Platelet Volume 10.2 fL (7.4-10.4); Nucleated Red Blood Cells % 0 % (-); Platelet Count 320 10^3/uL (130-400); Red Blood Cell Count 3.98 10^6/uL (4.70-6.10); Red Cell Dist. Width 19.7 % (11.5-14.5); White Blood Cell Count 18.1 10^3/uL (4.8-10.8)
--- NOTE | 2024-01-28 07:29 | ED.GENMED ---
History of Present Illness
<Lenora Quick MD, Resident - Last Filed: 01/28/24 07:52>
General
Chief Complaint: Skin Problem
Time Seen by Provider: 01/28/24 06:56
History of Present Illness
History of Present Illness:
73-year-old male with past medical history of diabetes, A-fib, HFrEF, COPD, hypertension, hypercholesterolemia, TIA presenting with a draining ulcer on his right foot. Pt notes it started with a blister about a week ago and has been progressively
having pain since then. Pt was seen by his research agricultural engineer this week and received topical cream (neosporin). Denies fever, chills, nausea vomiting, and any other systemic symptoms. Pt notes last A1C was 7.2 and his diabetes is controlled.
Past History
<Lenora Quick MD, Resident - Last Filed: 01/28/24 07:52>
Past History
ED Past Medical History: CAD, IDDM, Other (Spinal stenosis, IBS) and Other (Afib)
ED Past Surgical History: Orthopedic
Social History
Tobacco: Former smoker
Alcohol: Occasional
Drug: None
Personal:
Living: with family
Employment: Employed
Family History
Family History: Diabetes
Review of Systems
<Lenora Quick MD, Resident - Last Filed: 01/28/24 07:52>
Review of Systems
Constitutional: Reports no symptoms
EENT: Reports no symptoms
Respiratory: Reports no symptoms
Cardiac: Reports no symptoms
ABD/GI: Reports no symptoms
: Reports no symptoms
Musculoskeletal: Reports no symptoms
Skin: Reports other (skin cracking of the right foot and pain)
Neurological: Reports no symptoms
Endocrine: Reports no symptoms
Hematologic/Lymphatic: Reports no symptoms
Psychiatric: Reports no symptoms
Phy Exam
<Lenora Quick MD, Resident - Last Filed: 01/28/24 07:52>
Physical Exam
Physical Exam:
GENERAL: Alert, in no apparent distress
EYE: pupils equal and reactive
NECK: Supple, no significant adenopathy.
ENT: o/p clr, mmm.
CARDIAC: Regular rhythm, tachycardic.
LUNGS: Clear breath sounds bilaterally, no acute respiratory distress, no wheezes/rales/rhonchi, tachypneic
ABDOMEN: Soft, without focal tenderness, no r/g, no cvat
NEUROLOGICAL: Alert and oriented, no focal neuro deficits
SKIN: Warm and dry, skin intact.
MUSCULOSKELETAL: No edema, well perfused.
Draining ulcer and skin cracking on the plantar surface of right foot (near heel). No significant swelling, warmth, redness. Distal pulses palpated.
Skin discoloration of right lower extremity (venous stasis dermatitis).
PSYCH: Normal and appropriate interaction.
Course
<Lenora Quick MD, Resident - Last Filed: 01/28/24 07:52>
Orders/Labs/Results
Orders:
Orders
01/28/24 07:14
Complete Blood Count/With Diff Urgent
Erythrocyte Sed Rate Urgent
Comment: ADD ON
01/28/24 07:28
Add On- LAB Urgent
Tests Added?: esr/crp
01/28/24 07:29
Foot, Left 3 View [CR Foot - Left Min 3 Views] Urgent
Comment:
Reason For Exam: heal wound
01/28/24 07:41
C-Reactive Protein Urgent
Comment: ADD ON
Comprehensive Metabolic Panel Urgent
01/28/24 08:35
Piperacillin/Tazo 3.375 Gram [Zosyn] 3.375 gram in 50 ml IV NOW
01/28/24 08:43
Electrocardiogram (*1) Urgent
Reason for Study: QTc Monitoring
EKG- Treatment ONCE
01/28/24 08:44
CR Chest - 2 Views Urgent
Comment:
Reason For Exam: sob
Abnormal Lab Results
01/28/24 01/28/24
07:14 07:41
WBC 18.1 H 10^3/uL
(4.8-10.8)
RBC 3.98 L 10^6/uL
(4.70-6.10)
Hgb 10.6 L g/dL
(13.0-18.0)
Hct 33.8 L %
(39.0-52.0)
MCH 26.6 L pg
(27.0-31.0)
MCHC 31.4 L g/dL
(33.0-37.0)
RDW 19.7 H %
(11.5-14.5)
Abs Immat Gran (auto) 0.1 H 10^3/uL
(0-0.05)
Absolute Neuts (auto) 15.8 H 10^3/uL
(1.4-6.5)
Absolute Lymphs (auto) 1.0 L 10^3/uL
(1.2-3.4)
Absolute Monos (auto) 1.1 H 10^3/uL
(0.1-0.6)
Immature Gran % 0.6 H %
(0-0.5)
Neutrophils % 87.3 H %
(42.2-75.2)
Lymphocytes % 5.6 L %
(20.5-51.1)
ESR 95 H mm/hour
(0-20)
Carbon Dioxide 21 L mmol/L
(22-30)
BUN 37 H mg/dl
(9-20)
Creatinine 1.5 H mg/dL
(0.7-1.3)
Glucose 114 H mg/dl
(70-99)
Calcium 8.1 L mg/dl
(8.4-10.2)
Total Bilirubin 2.6 H mg/dl
(0.2-1.3)
Alkaline Phosphatase 154 H U/L
(38-126)
C-Reactive Protein > 270.00 H mg/L
(0.0-10.00)
Albumin 3.4 L g/dl
(3.5-5.0)
01/28/24 07:14
01/28/24 07:41
Vital Signs
Initial and Last Documented VS:
Initial Vital Signs
Temp Pulse Resp BP Pulse Ox
99.1 F 128 28 133/80 89
01/28/24 06:42 01/28/24 06:42 01/28/24 06:42 01/28/24 06:42 01/28/24 06:42
Last Documented Vital Signs
Temp Pulse Resp BP Pulse Ox
99.1 F 108 30 129/75 90
01/28/24 06:42 01/28/24 08:18 01/28/24 08:18 01/28/24 08:00 01/28/24 08:18
<Ciro Posadas, DO - Last Filed: 01/28/24 08:45>
Orders/Labs/Results
Orders:
Orders
01/28/24 07:14
Complete Blood Count/With Diff Urgent
Erythrocyte Sed Rate Urgent
Comment: ADD ON
01/28/24 07:28
Add On- LAB Urgent
Tests Added?: esr/crp
01/28/24 07:29
Foot, Left 3 View [CR Foot - Left Min 3 Views] Urgent
Comment:
Reason For Exam: heal wound
01/28/24 07:41
C-Reactive Protein Urgent
Comment: ADD ON
Comprehensive Metabolic Panel Urgent
01/28/24 08:35
Piperacillin/Tazo 3.375 Gram [Zosyn] 3.375 gram in 50 ml IV NOW
01/28/24 08:43
Electrocardiogram (*1) Urgent
Reason for Study: QTc Monitoring
EKG- Treatment ONCE
01/28/24 08:44
CR Chest - 2 Views Urgent
Comment:
Reason For Exam: sob
Abnormal Lab Results
01/28/24 01/28/24
07:14 07:41
WBC 18.1 H 10^3/uL
(4.8-10.8)
RBC 3.98 L 10^6/uL
(4.70-6.10)
Hgb 10.6 L g/dL
(13.0-18.0)
Hct 33.8 L %
(39.0-52.0)
MCH 26.6 L pg
(27.0-31.0)
MCHC 31.4 L g/dL
(33.0-37.0)
RDW 19.7 H %
(11.5-14.5)
Abs Immat Gran (auto) 0.1 H 10^3/uL
(0-0.05)
Absolute Neuts (auto) 15.8 H 10^3/uL
(1.4-6.5)
Absolute Lymphs (auto) 1.0 L 10^3/uL
(1.2-3.4)
Absolute Monos (auto) 1.1 H 10^3/uL
(0.1-0.6)
Immature Gran % 0.6 H %
(0-0.5)
Neutrophils % 87.3 H %
(42.2-75.2)
Lymphocytes % 5.6 L %
(20.5-51.1)
ESR 95 H mm/hour
(0-20)
Carbon Dioxide 21 L mmol/L
(22-30)
BUN 37 H mg/dl
(9-20)
Creatinine 1.5 H mg/dL
(0.7-1.3)
Glucose 114 H mg/dl
(70-99)
Calcium 8.1 L mg/dl
(8.4-10.2)
Total Bilirubin 2.6 H mg/dl
(0.2-1.3)
Alkaline Phosphatase 154 H U/L
(38-126)
C-Reactive Protein > 270.00 H mg/L
(0.0-10.00)
Albumin 3.4 L g/dl
(3.5-5.0)
01/28/24 07:14
01/28/24 07:41
Vital Signs
Initial and Last Documented VS:
Initial Vital Signs
Temp Pulse Resp BP Pulse Ox
99.1 F 128 28 133/80 89
01/28/24 06:42 01/28/24 06:42 01/28/24 06:42 01/28/24 06:42 01/28/24 06:42
Last Documented Vital Signs
Temp Pulse Resp BP Pulse Ox
99.1 F 108 30 129/75 90
01/28/24 06:42 01/28/24 08:18 01/28/24 08:18 01/28/24 08:00 01/28/24 08:18
<Lenora Quick MD, Resident - Last Filed: 01/28/24 07:52>
MDM/Problems Addressed
Differential Diagnosis Includes:
Diabetic foot ulcer/abscess
Cellulitis
Osteomyelitis
MDM/Problems Addressed:
- CBC, CMP
- Rt foot X-ray
- ESR, CRP
- Antibiotics (unasyn)
Chronic conditions affecting care: DM
<Lenora Quick MD, Resident - Last Filed: 01/28/24 07:52>
*Critical Care Note
Total Time (30-74mins, 75-104mins- exclusive of procedures): Not Applicable
<Ciro Posadas, DO - Last Filed: 01/28/24 08:45>
Update Note
Update Note:
Update labs noted triage vital signs noted will check EKG and chest x-ray placed on supplemental oxygen will require admission
ED Attending Note
<Lenora Quick MD, Resident - Last Filed: 01/28/24 07:52>
-
Portions of this chart may have been created with voice recognition software.� Occasional wrong word or��sound alike� substitutions may have occurred due to the inherent limitations of voice recognition software.
<Ciro Posadas, DO - Last Filed: 01/28/24 08:45>
ED Attending Note
Patient seen and examined by attending physician: Yes
I performed a history and physical exam of patient and discussed management with resident, I reviewed resident's note and agree with documented findings and plan of care.: Yes
ED Attending Note:
Seen with resident and examined independently diabetic blister on his left heel saw his research agricultural engineer, give some topical antibiotics, offloading shoe increased pain no drainage does have some redness on his anterior pond which is not new per the
patient will check inflammatory markers and x-ray sideration for empiric antibiotics
Discharge Plan
Departure
Patient Disposition: Admit
Date of Disposition: 01/28/24
Time of Disposition: 08:45
Admit to: Med/Surg and Telemetry
Presentation/result/management discussed w/ accepting MD/DO: Hospitalist
Patient with high blood pressure during this ER visit?: No
Condition: Fair
Discharge Problem:
Diabetic foot infection
Prescriptions:
No Action
metformin 1,000 MG tablet
1,000 mg PO BID
insulin aspart U-100 [Novolog U-100 Insulin aspart] 1,000 UNITS/10 ML solution
7 - 20 units SC AC
cholecalciferol (vitamin D3) 1,000 UNITS tablet
1,000 units PO DAILY
Eliquis 5 MG tablet
5 mg PO BID
multivitamin Tablet
1 tab PO NOON
furosemide 40 mg Tablet
40 mg PO NOON
atorvastatin 20 mg Tablet
40 mg PO DAILY
famotidine 20 mg Tablet
20 mg PO HS
dicyclomine 20 mg Tablet
20 mg PO DAILYPRN PRN (Reason: IBS)
metoprolol succinate 25 mg Tablet Extended Release 24 Hr
25 mg PO DAILY
albuterol sulfate 90 mcg/actuation Hfa Aerosol Inhaler
2 puff INHALATION R Q6HPRN PRN (Reason: COPD)
Align 4 mg Capsule
4 mg PO DAILY
Anoro Ellipta 62.5-25 mcg/actuation Blister With Device
1 inh INHALATION R DAILY
insulin degludec [Tresiba FlexTouch U-100] 100 unit/mL (3 mL) Insulin Pen
45 unit SC DAILY Qty: 0
nystatin 100,000 unit/gram Powder
1 applic TOPICAL DAILY
aspirin 81 mg Tablet,Delayed Release (Dr/Ec)
81 mg PO DAILY Qty: 90 0RF
Jardiance 10 mg Tablet
10 mg PO DAILY 30 Days Qty: 30 0RF
lisinopril 10 mg Tablet
10 mg PO NOON 30 Days Qty: 30 0RF
spironolactone 25 mg Tablet
25 mg PO DAILY 30 Days Qty: 30 0RF
Referrals:
Beverly Malagon PA-C [Family Provider] -
Interventions
Interventions:
*Risk Screen - Suicide Last Done: 01/28/24 06:45
*General Assessment Last Done: 01/28/24 06:42
*Neglect/Abuse Screening Last Done: 01/28/24 06:42
ED- Fall Risk Assessment Last Done: 01/28/24 07:04
*ED COVID-19 Vaccine History Last Done: 01/28/24 07:04
ED-Skin Assessment Last Done: 01/28/24 07:07
Discharge Date and Time
Print Language: NAURUAN
[2024-01-28 08:14] LABS: ALT (SGPT) 22 U/L (0-50); AST (SGOT) 33 U/L (17-59); Albumin 3.4 g/dl (3.5-5.0); Alkaline Phosphatase 154 U/L (38-126); Blood Urea Nitrogen 37 mg/dl (9-20); Calcium 8.1 mg/dl (8.4-10.2); Carbon Dioxide 21 mmol/L (22-30); Chloride 98 mmol/L (98-107); Estimated Creatinine Clearance 50 ml/min; Glucose 114 mg/dl (70-99); Potassium 4.3 mmol/L (3.5-5.1); Sodium 136 mmol/L (135-145); Total Bilirubin 2.6 mg/dl (0.2-1.3); Total Protein 7.4 g/dl (6.3-8.2); eGFR 48.25
[2024-01-28 08:16] LABS: C-Reactive Protein > 270.00 mg/L (0.0-10.00)
[2024-01-28 08:20] LABS: Erythrocyte Sed Rate 95 mm/hour (0-20)
[2024-01-28] MEDS: ZOSYN 50 IV (08:46)
--- NOTE | 2024-01-28 08:51 | HPS.HSE ---
Family Physician
-
Family Physician: Beverly Malagon
Chief Complaint
-
Right foot ulcer
History of Present Illness
Patient is 73 years old male with history of hypertension, hyperlipidemia, CHF, COPD, CAD, presented to the hospital with right foot ulcer. Patient went to see his utility repairer and when they took the sock off it was noted that may be a blister broke
off and he was prescribed but topical antibiotic. Patient has not noticed any improvement and he has been having significant amount of pain that has been progressively getting worse and his ulcer on the bottom of his left foot has been getting
worse as well. He also complains of chills. He denies fevers. Denies nausea vomiting or diarrhea. Denies chest pain. Denies shortness of breath at rest. In the ER, he was found to have leukocytosis with white blood cell count of 18,000 and
creatinine 1.5. He was given antibiotics. He was referred to hospitalist service for further evaluation.
Medical History
Past Medical History
Past Medical History: Reports Other (As per HPI above)
Past Surgical History: Reports Orthopedic and Other (Vascular Surgery)
Social History
Tobacco: Former Smoker
Alcohol: Occasional
Drug: None
Family History
Family History: Not pertinent
Allergies / Home Medications
Allergies reflects when Allergies were last updated in [email or web address].
Home Medications with original date entered in [email or web address]
Allergy/Medication List:
Allergies
Allergy/AdvReac Type Severity Reaction Status Date / Time
adhesive tape Allergy BLISTERED Verified 09/06/23 06:33
hydromorphone [From Dilaudid] AdvReac Nausea Verified 09/13/23 13:36
oxycodone HCl [From Percocet] AdvReac Nausea Verified 09/13/23 13:36
Home Medications
metformin 1,000 mg tablet 1,000 mg PO BID Diabetes 06/22/12
apixaban 5 mg tablet (Eliquis) 5 mg PO BID Blood Clot Prevention/Tx 06/03/15
cholecalciferol (vitamin D3) 25 mcg (1,000 unit) tablet 1,000 units PO DAILY Supplement 06/03/15
insulin aspart U-100 100 unit/mL subcutaneous solution (Novolog U-100 Insulin aspart) 7 - 20 units SC AC Diabetes 06/03/15
Bifidobacterium infantis 4 mg capsule (Align) 4 mg PO DAILY probiotic 09/04/23
albuterol sulfate 90 mcg/actuation aerosol inhaler 2 puff inhalation R Q6HPRN PRN COPD 09/04/23
atorvastatin 20 mg tablet 40 mg PO DAILY High Cholesterol 09/04/23
dicyclomine 20 mg tablet 20 mg PO DAILYPRN PRN IBS 09/04/23
famotidine 20 mg tablet 20 mg PO HS Gastrointestinal Issue 09/04/23
furosemide 40 mg tablet 40 mg PO NOON Fluid Retention/Swelling 09/04/23
insulin degludec 100 unit/mL (3 mL) subcutaneous pen (Tresiba FlexTouch U-100 insulin) 45 unit SC DAILY Diabetes ##0 09/04/23
metoprolol succinate 25 mg tablet,extended release 24 hr 25 mg PO DAILY Blood Pressure 09/04/23
multivitamin 1 tab PO NOON Supplement 09/04/23
umeclidinium 62.5 mcg-vilanterol 25 mcg/actuation powdr for inhalation (Anoro Ellipta) 1 inh inhalation R DAILY Lung/Breathing Issues 09/04/23
aspirin 81 mg tablet,delayed release 81 mg PO DAILY #90 tabs 09/06/23
nystatin 100,000 unit/gram topical powder 1 applic topical DAILY groin 09/06/23
empagliflozin 10 mg tablet (Jardiance) 10 mg PO DAILY 30 days #30 tabs 09/14/23
lisinopril 10 mg tablet 10 mg PO NOON 30 days #30 tabs 09/14/23
spironolactone 25 mg tablet 25 mg PO DAILY 30 days #30 tabs 09/14/23
Review of Systems
-
A 12 point ROS was completed and negative except as noted: Yes
Physical Exam
Vital Signs
Vital Signs
Temp Pulse Resp BP Pulse Ox
99.1 F 108 30 129/75 90
01/28/24 06:42 01/28/24 08:18 01/28/24 08:18 01/28/24 08:00 01/28/24 08:18
Physical exam:
General: Acutely ill
HEENT: Normocephalic, Atraumatic and dry mucous Membranes
Respiratory: Clear to Auscultation; Negative Wheezes, Rales or Rhonchi
Cardiac: Irregular rate and rhythm, tachycardic, and S1/S2
GI: Soft, Nontender and Nondistended
Musculoskeletal: Left lower extremity heel plantar surface ulcer around 4 to 5 cm size with mild necrotic changes. Decreased pulses. No Clubbing, No Cyanosis and some Edema. Venous stasis changes more pronounced in the left.
Neuro: Awake, Alert and Oriented, no neurological deficits but generalized weakness.
Psych: Calm
Physical Exam
General: Other
Laboratory Results
-
01/28/24 07:14
01/28/24 07:41
Laboratory Results
Total Bilirubin 2.6 mg/dl (0.2-1.3) H 01/28/24 07:41
AST 33 U/L (17-59) 01/28/24 07:41
ALT 22 U/L (0-50) 01/28/24 07:41
Alkaline Phosphatase 154 U/L (38-126) H 01/28/24 07:41
Data Reviewed
-
Diagnostic Radiology: Image Personally Visualized and interpreted
Lab Data: Labs Reviewed by me
Impression/Plan
-
IMPRESSION:
Patient is 73 years old male with multiple comorbidities presented to the hospital with sepsis due to diabetic and peripheral vascular disease left foot plantar infected ulcer. Patient increased risk of morbidity and mortality due to acute
presentation and multiple comorbidities therefore he will need to be treated in the hospital and monitor accordingly.
PLAN:
Sepsis due to infected left plantar foot ulcer in a patient with diabetes mellitus and peripheral vascular disease:
Patient with signs of sepsis with tachycardia, tachypnea, leukocytosis, and source infected left heel ulcer
Continue broad-spectrum antibiotics, IV Cefepime and vancomycin (Given Zosyn in the ER)
Start IV fluid (he has not been given any fluids yet as far as I can see)
X-ray of the foot no fractures or erosions evident. Some osteoarthritic changes interphalangeal and first metatarsophalangeal joints. Dorsal talus osteophyte. No clear evidence of osteo.
Elevated CRP
Check lactic acid
Podiatry consult-discussed with podiatry via [place] text today
Vascular surgery consult-discussed with vascular surgery via [place] text today
Trend WBC and temperature curve
RAUL:
Creatinine 1.5 today
Last creatinine 1.2 on 12/06/2023
Avoid nephrotoxic
Check bladder scans as well
Monitor renal function in a.m.
Peripheral vascular disease:
S/P LLE arteriogram and stent to SFA and angioplasty to PT per vascular surgery back in September this year.
Cont anticoagulation with Eliquis, aspirin, and statins.
CAD:
Continue current anti-ischemic regimen including aspirin, beta-blockers, and statins
Permanent atrial fibrillation:
Continue rate control, beta-blockers
Continue anticoagulation, Eliquis-might need to hold later on if procedure needed
Chronic HFrEF:
Currently hypovolemic on exam
Reviewed last echocardiogram and EF 30 to 35% on September 2023
Monitor volume status closely
Dry weight is around 111 kg and patient weighs on 111.9 Kg today so close to baseline
Hold diuretics due to RAUL
Continue GDMT with beta-misha and holding parameters but holding SGLT-i and MRA due to RAUL
Hypertension:
Continue home antihypertensives but with holding parameters
Monitor blood pressure and adjust medications are currently
Hyperlipidemia:
Continue home statins
TIA:
Continue anti-ischemic regimen
Diabetes mellitus type 2:
Diabetic diet
Insulin sliding scale
Obtain hemoglobin A1c in a.m.
Asthma:
Respiratory status stable
Bronchodilators as needed
Continue to monitor
ERICK:
Intolerant to CPAP
Obesity:
Lifestyle changes warranted
DVT prophylaxis:
Eliquis
CODE STATUS:
Full code
Time spent 75 minutes
--- NOTE | 2024-01-28 11:02 | CM ---
CM reviewed chart. Patient is here for sepsis s/t to infected left plantar foot ulcer. He has a history of diabetes and PVD. On IV antibiotics. CM introduced self and role. Lives in a [place] home with . He is independent. He does own a cane and
walker. There is one step to enter into his home. He has an active PCP (Alice PAYNE) and pharmacy. He denies any +SDOHs. He is retired. He uses 2L at HS. His 02 is supplied by [employer].
ANTICIPATED DISCHARGE DISP): Home, with/without IV antibiotics, when medically cleared.
[2024-01-28 11:28] LABS: Lactic Acid 1.6 mmol/L (0.7-2.0)
[2024-01-28] MEDS: VANCOCIN 540 MG IV (11:38)
[2024-01-28] MEDS: LR 1000 IV ×3 (11:41→23:32)
--- NOTE | 2024-01-28 11:41 | CON.MD ---
Consultation - Medical
-
Chief Complaint: left foot ulcer
History of Present Illness:
Patient is 73 years old male with history of hypertension, hyperlipidemia, CHF, COPD, CAD, presented to the hospital with Left foot ulcer. Patient went to see his mining teacher, Dr Hannah and when they took the sock off it was noted that he had a
wound and he was prescribed a topical antibiotic. Patient has not noticed any improvement and he has been having significant amount of pain that has been progressively getting worse and his ulcer on the bottom of his left foot has been getting
worse as well. He also complains of chills. He denies fevers. Denies nausea vomiting or diarrhea. Denies chest pain. Denies shortness of breath at rest.
In the ER, he was found to have leukocytosis with white blood cell count of 18,000 and creatinine 1.5. He was given antibiotics. He was referred to hospitalist service for further evaluation.
Medical History
Past Medical History
Past Medical History: Reports Other (As per HPI above)
Past Surgical History: Reports Orthopedic and Other (Vascular Surgery)
Social History
Tobacco: Former Smoker
Alcohol: Occasional
Drug: None
Family History
Family History: Not pertinent
Allergies / Home Medication:
Allergies reflects when Allergies were last updated in [facility].
Home Medications with original date entered in [facility]
Allergy/Medication List:
Allergies
Allergy/AdvReac Type Severity Reaction Status Date / Time
adhesive tape Allergy BLISTERED Verified 09/06/23 06:33
hydromorphone [From Dilaudid] AdvReac Nausea Verified 09/13/23 13:36
oxycodone HCl [From Percocet] AdvReac Nausea Verified 09/13/23 13:36
Home Medications
metformin 1,000 mg tablet 1,000 mg PO BID Diabetes 06/22/12
apixaban 5 mg tablet (Eliquis) 5 mg PO BID Blood Clot Prevention/Tx 06/03/15
cholecalciferol (vitamin D3) 25 mcg (1,000 unit) tablet 1,000 units PO DAILY Supplement 06/03/15
insulin aspart U-100 100 unit/mL subcutaneous solution (Novolog U-100 Insulin aspart) 7 - 20 units SC AC Diabetes 06/03/15
Bifidobacterium infantis 4 mg capsule (Align) 4 mg PO DAILY probiotic 09/04/23
albuterol sulfate 90 mcg/actuation aerosol inhaler 2 puff inhalation R Q6HPRN PRN COPD 09/04/23
atorvastatin 20 mg tablet 40 mg PO DAILY High Cholesterol 09/04/23
dicyclomine 20 mg tablet 20 mg PO DAILYPRN PRN IBS 09/04/23
famotidine 20 mg tablet 20 mg PO HS Gastrointestinal Issue 09/04/23
f
furosemide 40 mg tablet 40 mg PO NOON Fluid Retention/Swelling 09/04/23
insulin degludec 100 unit/mL (3 mL) subcutaneous pen (Tresiba FlexTouch U-100 insulin) 45 unit SC DAILY Diabetes ##0 09/04/23
metoprolol succinate 25 mg tablet,extended release 24 hr 25 mg PO DAILY Blood Pressure 09/04/23
multivitamin 1 tab PO NOON Supplement 09/04/23
umeclidinium 62.5 mcg-vilanterol 25 mcg/actuation powdr for inhalation (Anoro Ellipta) 1 inh inhalation R DAILY Lung/Breathing Issues 09/04/23
aspirin 81 mg tablet,delayed release 81 mg PO DAILY #90 tabs 09/06/23
nystatin 100,000 unit/gram topical powder 1 applic topical DAILY groin 09/06/23
empagliflozin 10 mg tablet (Jardiance) 10 mg PO DAILY 30 days #30 tabs 09/14/23
lisinopril 10 mg tablet 10 mg PO NOON 30 days #30 tabs 09/14/23
spironolactone 25 mg tablet 25 mg PO DAILY 30 days #30 tabs 09/14/23
Review of Systems
A 12 point ROS was completed and negative except as noted: Yes
Physical Exam
Vital Signs
Vital Signs
Temp Pulse Resp BP Pulse Ox
99.1 F 108 30 129/75 90
01/28/24 06:42 01/28/24 08:18 01/28/24 08:18 01/28/24 08:00 01/28/24 08:18
Physical exam:Non toxic appearing, NAD, AAO x 3
LE focused exam:
Non palpable pedal pulses, poor skin texture and turgor with xerosis to legs/feet. There is a bulla to the left great toe and ecchymosis to the anterior ankle (appears to be from dressing being to tight)
+malodor and necrosis to the left heel from the plantar aspect to the lateral heel. It is boggy centrally. There is cellulitis to the diatal left leg.
Laboratory Results
01/28/24 07:41
Laboratory Results
Total Bilirubin 2.6 mg/dl (0.2-1.3) H 01/28/24 07:41
AST 33 U/L (17-59) 01/28/24 07:41
ALT 22 U/L (0-50) 01/28/24 07:41
Alkaline Phosphatase 154 U/L (38-126) H 01/28/24 07:41
Data Reviewed
Diagnostic Radiology: Image Personally Visualized and interpreted
Left foot XRAY IMPRESSION:
No acute fracture or dislocation. Scattered mild to moderate osteoarthritic changes of the interphalangeal and first metatarsophalangeal joints. Prominent dorsal talus osteophyte. No erosions are evident. No radiographic evidence for inflammatory
arthropathy. No overt radiographic evidence for osteomyelitis. Moderate plantar calcaneal enthesopathy. Diffuse vascular calcifications. NO GAS noted to the soft tissue
Arterial study 10/2023: Left QUAN: [place] -[place]- [facility] -[place]-, previously [place]
Left TBI: 0.24, previously 0.69
Lab Data: Labs Reviewed by me
Impression/Plan:
DM2 with PAD- known to Dr Castillo, will order arterial studies
DM2 with DPN
Gangrene left heel
Cellulitis LLE IV abt per hospitalist
Multiple co morbidities
C
Will order studies, wound care and spoke with Dr Hannah via [facility], they will follow patient while here as he may require surgical debridement.
[2024-01-28] MEDS: NOVOLOG FLEXPEN-MODERATE RESISTANCE SC ×2 (12:46→16:59)
[2024-01-28 12:47] LABS: Glucose - Point of Care 101 mg/dl (70-99)
[2024-01-28] MEDS: TOPROL XL 25 MG PO (13:06)
[2024-01-28] MEDS: ELIQUIS 5 MG PO ×2 (13:06→20:33)
[2024-01-28] MEDS: ASPIR LOW (ENTERIC COATED) 81 MG PO (13:06)
[2024-01-28] MEDS: MAXIPIME 2000 MG IV ×2 (14:15→23:31)
[2024-01-28] MEDS: STERILE WATER FOR INJECTION 10 ML IV ×2 (14:15→23:31)
--- NOTE | 2024-01-28 16:01 | PHA.VAN.IN ---
Assessment
- Assessment
Renal Function: Appears elevated from baseline
Concomitant Antimicrobials: Cefepime
AUC Dosing Plan
- Dosing Variables
Dosing Weight (kg): 111.9
Dosing CrCl (ml/min): 50
Vd coefficient (L/kg): 0.6
- Empiric Dosing
Initial / Loading Dose: Vanco 2G loading dose given 01/28/24 at 1138
Maintenance Regimen: Vanco 1500mg Q24H Starting 01/29/24 0630
Estimated AUC (mcg*h/mL): 504
Estimated Peak (mcg*h/mL): 33.5
Estimated Trough (mcg/ml): 11.9
Estimated Half Life (H): 23.4
- Monitoring
No levels ordered at this time: Consider level in the next few days
Pharmacokinetics Vancomycin I
- -
Patient Age: 73
Patient Sex: Male
Vancomycin Day #: 1
Indication: Skin And Soft Tissue
Requesting Provider: Miller
Pertinent Antimicrobial Allergies:
No known abx allergies
Height / Weight:
Height 5 ft 6 in
Actual Weight 111.901 kg
- Vital Signs / Lab Results
Temp Pulse Resp BP Pulse Ox
100.3 F 94 22 110/66 95
01/28/24 15:57 01/28/24 15:57 01/28/24 15:57 01/28/24 15:57 01/28/24 15:57
Lab Results - Hematology
01/28/24
07:14
WBC 18.1 H
Lab Results - Chemistry
01/28/24 01/28/24
07:14 07:41
BUN Cancelled 37 H
Creatinine Cancelled 1.5 H
Estimated Creat Clear Cancelled 50
Albumin Cancelled 3.4 L
01/28/24
10:47
Lactic Acid 1.6
[2024-01-28] MEDS: ROXICODONE 5 MG PO (16:04)
[2024-01-28 16:56] LABS: Glucose - Point of Care 105 mg/dl (70-99)
[2024-01-28] MEDS: LIPITOR 80 MG PO (17:39)
[2024-01-28] MEDS: TYLENOL 650 MG PO (17:42)
[2024-01-28 21:44] LABS: Glucose - Point of Care 140 mg/dl (70-99)
[2024-01-28] MEDS: PEPCID 20 MG PO (21:45)
[2024-01-28] MEDS: ROXICODONE 10 MG PO (23:31)
[2024-01-29] VITALS (12 sets, daily range): BP systolic 100–136; BP diastolic 58–98; BMI 40.4
[2024-01-29] MEDS: VANCOCIN 530 MG IV (05:40)
[2024-01-29 07:58] LABS: % Basophils 0.1 % (0-2); % Immature Granulocytes 0.9 % (0-0.5); % Lymphocytes 2.2 % (20.5-51.1); % Monocytes 3.9 % (1.7-9.3); % Neutrophils 92.9 % (42.2-75.2); Absolute Immature Granulocytes 0.2 10^3/uL (0-0.05); Absolute Lymphocytes 0.4 10^3/uL (1.2-3.4); Absolute Monocytes 0.7 10^3/uL (0.1-0.6); Absolute Neutrophils 17.1 10^3/uL (1.4-6.5); Hematocrit 33.8 % (39.0-52.0); Hemoglobin 10.1 g/dL (13.0-18.0); Mean Corp Hgb Conc. 29.9 g/dL (33.0-37.0); Mean Corpuscular Volume 87.1 fL (80.0-94.0); Nucleated Red Blood Cells % 0 % (-); Platelet Count 294 10^3/uL (130-400); Red Blood Cell Count 3.88 10^6/uL (4.70-6.10); Red Cell Dist. Width 19.5 % (11.5-14.5); White Blood Cell Count 18.4 10^3/uL (4.8-10.8)
[2024-01-29 08:35] LABS: Blood Urea Nitrogen 44 mg/dl (9-20); Calcium 7.9 mg/dl (8.4-10.2); Carbon Dioxide 17 mmol/L (22-30); Chloride 97 mmol/L (98-107); Estimated Creatinine Clearance 47 ml/min; Glucose 206 mg/dl (70-99); Potassium 4.7 mmol/L (3.5-5.1); Sodium 133 mmol/L (135-145); eGFR 44.65
--- NOTE | 2024-01-29 08:35 | WOUNDNOTE ---
L PLANTAR HEEL (with photo flash)
--- NOTE | 2024-01-29 08:35 | WOUNDNOTE ---
L GREAT TOE TIP
--- NOTE | 2024-01-29 08:35 | PHA.VAN.FU ---
Vancomycin Assessment / Plan
- Assessment
Renal Function: Stable
WBC's are: Stable
In the past 24 hrs, patient has been: Afebrile
Concomitant Antimicrobials: cefepime
- Dosing Plan
Adjust Regimen to: dosing by level given elevation in SCR from baseline
Dosing Comments: received 1500mg this AM plus 2g load 01/27 AM
- Monitoring Plan
Random Level: 01/29 0600
- Follow Up
Pharmacy will continue to follow.
Vancomycin Follow UP
- -
Patient Age: 73
Patient Sex: Male
Vancomycin Day #: 2
Indication: Skin And Soft Tissue
Requesting Provider: Paul
Pertinent Antimicrobial Allergies:
No known abx allergies
Height / Weight:
Height 5 ft 6 in
Actual Weight 113.398 kg
Pertinent Past Medical History: BMI ~40
- Vital Signs / Lab Results
Temp Pulse Resp BP Pulse Ox
99.0 F 88 18 118/68 94
01/29/24 03:30 01/29/24 03:30 01/29/24 03:30 01/29/24 03:30 01/29/24 03:30
Lab Results - Hematology
01/28/24 01/29/24
07:14 07:22
WBC 18.1 H 18.4 H
Lab Results - Chemistry
01/28/24 01/28/24
07:14 07:41
BUN Cancelled 37 H
Creatinine Cancelled 1.5 H
Estimated Creat Clear Cancelled 50
Albumin Cancelled 3.4 L
01/28/24
10:47
Lactic Acid 1.6
--- NOTE | 2024-01-29 08:36 | WOUNDNOTE ---
L ANKLE/PROXIMAL FOOT (ANTERIOR)
--- NOTE | 2024-01-29 08:36 | WOUNDNOTE ---
L ANKLE/FOOT (ANTERIOR)
--- NOTE | 2024-01-29 08:37 | WOUNDNOTE ---
[facility] RN note: Patient admitted with infected L planter heel necrotic ulcer. Patient lives with his .
See H&P for complete history.
PMH: TIA, HTN, CHF, CAD, L plantar foot ulcer followed by Dr. Hannah, PAD, LLE angiogram with stent 09/2023, former smoker, PAD, DM, asthma, ERICK (CPAP).
Wound Location and type/assessment: Patient admitted with: L plantar lateral heel black gangrene ulcers, plantar heel ulcer boggy. L great toe tip dry ulcer. L anterior ankle/foot with 2 DTI's suspect from gauze wrap and PAD. R dorsal foot dry
linear scratch cole. Pedal pulses heard via portable Doppler. L lateral elbow small dermal skin tear. Mild groin fold MASD.
Appetite: currently nausea he states from taking pain med last night.
Pressure redistribution devices in place: [employer] Accumax. Patient turns self in bed. He moves his feet off bed. Informed patient he cannot put any pressure on his L plantar heel and heel elevation while in bed.
Plan: L heel dressing changed as ordered. Heels off bed with pillow and air chair cushion. Vascular surgeon on consult. Arterial Doppler on order. Dr. Hannah to evaluate and manage L heel wound. Discussed with JETHRO Marino.
Care plan to be updated and will follow peripherally as needed.
Note to case management of equipment requested for discharge: VN if goes home.
--- NOTE | 2024-01-29 08:40 | WOUNDNOTE ---
[facility] RN note: Patient admitted with infected L planter heel necrotic ulcer. Patient lives with his .
See H&P for complete history.
PMH: TIA, HTN, CHF, CAD, L plantar foot ulcer followed by Dr. Hannah, PAD, LLE angiogram with stent 09/2023, former smoker, PAD, DM, asthma, ERICK (CPAP).
Wound Location and type/assessment: Patient admitted with: L plantar lateral heel black gangrene ulcers, plantar heel ulcer boggy. L great toe tip dry ulcer. L anterior ankle/foot with 2 DTI's suspect from gauze wrap and PAD. R dorsal foot dry
linear scratch cole. Pedal pulses heard via portable Doppler. Patient has a sneaker with insert for R and [employer] surgical shoe with small hole cut out at heel section for L. He stated he is a shoe size 12. L lateral elbow small dermal skin tear.
Mild groin fold MASD.
Appetite: currently nausea he states from taking pain med last night.
Pressure redistribution devices in place: [employer] Accumax. Patient turns self in bed. He moves his feet off bed. Informed patient he cannot put any pressure on his L plantar heel and heel elevation while in bed.
Plan: L heel dressing changed as ordered. Heels off bed with pillow and air chair cushion. Vascular surgeon on consult. Arterial Doppler on order. Dr. Hannah to evaluate and manage L heel wound. Discussed with JETHRO Marino.
Care plan to be updated and will follow peripherally as needed.
Note to case management of equipment requested for discharge: VN if goes home.
[2024-01-29 08:50] LABS: Glucose - Point of Care 192 mg/dl (70-99)
[2024-01-29] MEDS: NOVOLOG FLEXPEN-MODERATE RESISTANCE 1 UNITS SC (08:53)
[2024-01-29] MEDS: ASPIR LOW (ENTERIC COATED) 81 MG PO (08:54)
[2024-01-29] MEDS: ZOFRAN 4 MG IV ×2 (08:54→20:36)
[2024-01-29] MEDS: TOPROL XL 25 MG PO (08:54)
[2024-01-29] MEDS: ELIQUIS 5 MG PO (08:54)
--- NOTE | 2024-01-29 10:12 | CON.VAS ---
Consultation
Consultation Request
Performing Provider: Jonathan
Reason for Consultation: Left heel wound
Medical History
-
Chief Complaint: Left heel wound
History of Present Illness:
73-year-old male admitted overnight for nonhealing left heel wound. Past medical history hypertension, hyperlipidemia, CHF, COPD, CAD, known to vascular service last seen by us in the office on 10/13/23. Vascular history noted below. Patient was
recently seen in podiatry office where they noted a blister had broken open on his left heel. He was prescribed a topical antibiotic at that time. Since then patient has noted no improvement in the heel, worsening pain and swelling. In the ER he
had noted recent chills but no fever. Patient admitted for sepsis workup.
Vascular consult for nonhealing left heel wound. Patient seen at bedside this a.m. with Dr. Castillo. Patient noted to have elevated white count, chills, nausea, and overall feeling unwell. Heel wound is boggy, necrotic, small opening with purulent
drainage.
Vascular procedure history:
09/2023: Left lower extremity arteriogram with third order vessel catheterization of left posterior tibial artery via right common femoral artery puncture. Balloon angioplasty and stent placement with viblast Zilver PTX overlapping stents 6 mm x 140 mm
and 6 mm x 40 mm left superficial femoral artery. Balloon angioplasty of left posterior tibial artery.
Past Medical History
Past Medical History: Other (Hypertension, hyperlipidemia, CHF, COPD, CAD, PAD, CKD)
Past Surgical History: Other (See above)
Social History
Tobacco: Former Smoker
Alcohol: Occasional
Drug: None
Family History
Family History: Reviewed & Not Pertinent
Allergies / Home Medications
Allergy/AdvReac Type Severity Reaction Status Date / Time
adhesive tape Allergy BLISTERED Verified 01/28/24 12:52
hydromorphone [From Dilaudid] AdvReac Nausea Verified 01/28/24 12:52
oxycodone HCl [From Percocet] AdvReac Nausea Verified 01/28/24 12:52
�Medication �Instructions �Recorded �Confirmed �Type
metformin 1,000 mg tablet 1,000 mg PO BID Diabetes 06/22/12 01/28/24 History
apixaban 5 mg tablet (Eliquis) 5 mg PO BID Blood Clot 06/03/15 01/28/24 History
Prevention/Tx
cholecalciferol (vitamin D3) 25 1,000 units PO DAILY Supplement 06/03/15 01/28/24 History
mcg (1,000 unit) tablet
insulin aspart U-100 100 unit/mL 7 - 20 units SC AC Diabetes 06/03/15 09/10/23 History
subcutaneous solution (Novolog
U-100 Insulin aspart)
Bifidobacterium infantis 4 mg 4 mg PO DAILY probiotic 09/04/23 09/10/23 History
capsule (Align)
albuterol sulfate 90 mcg/actuation 1 puff inhalation Q4HPRN PRN COPD 09/04/23 01/28/24 History
aerosol inhaler
atorvastatin 20 mg tablet 80 mg PO DAILY High Cholesterol 09/04/23 01/28/24 History
dicyclomine 20 mg tablet 20 mg PO DAILYPRN PRN IBS 09/04/23 09/10/23 History
famotidine 20 mg tablet 20 mg PO HS Gastrointestinal Issue 09/04/23 01/28/24 History
furosemide 40 mg tablet 40 mg PO NOON Fluid 09/04/23 01/28/24 History
Retention/Swelling
insulin degludec 100 unit/mL (3 45 unit SC DAILY Diabetes ##0 09/04/23 09/10/23 History
mL) subcutaneous pen (Tresiba
FlexTouch U-100 insulin)
metoprolol succinate 25 mg 25 mg PO DAILY Blood Pressure 09/04/23 01/28/24 History
tablet,extended release 24 hr
multivitamin 1 tab PO NOON Supplement 09/04/23 09/10/23 History
umeclidinium 62.5 mcg-vilanterol 1 inh inhalation R DAILY 09/04/23 01/28/24 History
25 mcg/actuation powdr for Lung/Breathing Issues
inhalation (Anoro Ellipta)
aspirin 81 mg tablet,delayed 81 mg PO DAILY #90 tabs 09/06/23 01/28/24 Rx
release
nystatin 100,000 unit/gram topical 1 applic topical DAILY groin 09/06/23 09/10/23 History
powder
empagliflozin 10 mg tablet 10 mg PO DAILY 30 days #30 tabs 09/14/23 01/28/24 Rx
(Jardiance)
lisinopril 10 mg tablet 10 mg PO NOON 30 days #30 tabs 09/14/23 Rx
spironolactone 25 mg tablet 25 mg PO DAILY 30 days #30 tabs 09/14/23 Rx
Review of Systems
-
History Source: Patient
All other systems: Negative unless noted
Constitutional: Reports Fatigue and Chills
Vascular: Denies Leg Pain / Claudication
Abdomen/GI: Reports Nausea
Musculoskeletal: Reports Edema
Skin: Reports Other (Left heel wound)
Neurological: Reports No Symptoms
Physical Exam
Vital Signs
Temp Pulse Resp BP Pulse Ox
99.0 F 89 20 136/80 96
01/29/24 03:30 01/29/24 07:10 01/29/24 07:10 01/29/24 07:10 01/29/24 07:10
Lab Results
01/29/24 07:22
01/29/24 07:22
Physical Exam
General: No Apparent Distress
HEENT: Normocephalic and Atraumatic
Respiratory: Non Labored Respirations
Cardiac: Negative JVD
GI: Soft
Musculoskeletal: No Clubbing, No Cyanosis and Edema
Skin: Warm, Dry and Other (Left heel gangrene, boggy, small amount of purulent drainage)
Neuro: Awake, Alert and Oriented
Psych: Calm
Assessment / Plan
-
73-year-old male here with nonhealing left heel wound
Elevated white count, chills, nausea, lactic acid 1.6
Plan:
-NPO for left heel debridement today
-Agree with IV antibiotics
-Consult wound care
-Prevalon boots
Data Reviewed
-
Labs: Labs Reviewed by me
--- NOTE | 2024-01-29 10:20 | W.PN.UPDATE ---
Update Note
Progress Note Update
Seen and examined with PAPER FINAL INSPECTOR's. Full consultation to follow. 73-year-old male known to me with history of left toe ulcer status post arteriography of the left lower extremity and angioplasty/stenting several months ago. Subsequently healed left toe
ulcer. Now has developed left heel ulceration. Presents here with such. When I saw him just now patient notes that he is feeling sort of lousy. He is more lethargic. On exam, he is awake but is somewhat lethargic/uncomfortable. He is oriented.
Left foot is warm but he will with dry gangrene. Central portion with opening and what appears to be possible wet gangrene or purulence. Somewhat boggy underneath the dry gangrene as well.
White blood cell count 18,000.
Plan/likely infected/wet gangrene left heel. Concern for imminent or ongoing sepsis. Recommend urgent today debridement extensively of heel. Discussed this with the patient. Discussed with him real concern about potential limb loss even with
successful debridement. Discussed possible need for staged revascularization procedure. He understands and wishes to proceed. I discussed with his over the phone as well. Discussed with her relative urgency for debridement, discussed
potential risk of limb loss even with successful debridement given extensive heel gangrene in a diabetic. Discussed potential staged revascularization as well. They both understand all wish to proceed.
[2024-01-29 11:17] LABS: Glycohemoglobin (HgbA1c) 6.4 % (4.0-5.6)
--- NOTE | 2024-01-29 11:37 | W.PN.HOSP.TC ---
Today's Communication/Plan
-
see A/P
Assessment / Plan
Assessment / Plan
HP: Patient is 73 years old male with multiple comorbidities presented to the hospital with sepsis due to left foot plantar infected ulcer 2/2 diabetic foot ulcer and peripheral vascular disease.
A/P:
# Sepsis POA due to infected left plantar foot wound/ulcer, in setting of diabetes foot ulcer and peripheral vascular disease:
Elevated CRP
Continue broad-spectrum antibiotics IV Cefepime and vancomycin (Given Zosyn in the ER)
Cont IVF with RL, decrease to 80cc/hr
X-ray of the foot no fractures or erosions evident. Some osteoarthritic changes interphalangeal and first metatarsophalangeal joints. Dorsal talus osteophyte. No clear evidence of osteo.
Vascular on board, plan for debridement extensively of heel today 01/28, followed by staged revascularization procedure.
Podiatry on board
# RAUL, likely prerenal related to sepsis POA:
Creatinine 1.6 today from baseline 1.2
Gentle IVF
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
Cont bladder scans
Monitor renal function
# Peripheral vascular disease:
# S/P LLE arteriogram and stent to SFA and angioplasty to PT per vascular surgery in September this year.
Cont anticoagulation with Eliquis, aspirin, and statins.
# CAD:
Continue current anti-ischemic regimen including aspirin, beta-blockers, and statins
# Permanent atrial fibrillation:
Continue rate control, beta-blockers
Continue anticoagulation Eliquis
# Chronic HFrEF:
Reviewed last echocardiogram and EF 30 to 35% on September 2023
Monitor volume status closely
Dry weight is around 111 kg
Hold diuretics due to RAUL
Continue GDMT with beta-misha with holding parameters, holding Lasix/lisinopril/Aldactone due to RAUL
# Hypertension:
Continue home antihypertensives but with holding parameters
Monitor blood pressure and adjust medications are currently
# Hyperlipidemia:
Continue home statins
# TIA:
Continue anti-ischemic regimen
# Diabetes mellitus type 2:
Diabetic diet
Insulin sliding scale
A1c 6.4%
# Asthma:
Respiratory status stable
Bronchodilators as needed
Continue to monitor
# ERICK:
# Chronic hypoxic resp failure on 2L NC at home, uses HS
Intolerant to CPAP
# Obesity:
Lifestyle changes warranted
DVT prophylaxis: Eliquis
CODE STATUS: Full code
DW Vascular team
DW RN
total time spent 51 min
Anticipated Discharge: > 48 hours
Subjective/Interval History
-
Date of Service: January 29, 2024
Objective Data
-
Labs:
Laboratory Results
01/29/24
07:22
WBC 18.4 H
Hgb 10.1 L
Hct 33.8 L
Plt Count 294
Sodium 133 L
Potassium 4.7
Chloride 97 L
Carbon Dioxide 17 L
BUN 44 H
Creatinine 1.6 H
Glucose 206 H
Calcium 7.9 L
Vital Signs:
Vital Signs
Temp Pulse Resp BP Pulse Ox
37.2 C 89 20 136/80 96
01/29/24 03:30 01/29/24 07:10 01/29/24 07:10 01/29/24 07:10 01/29/24 07:10
I&O
01/28/24 01/29/24 01/30/24
06:59 06:59 06:59
Intake Total 1360 / 1360
Output Total 300 / 300
Balance 1060 / 1060
Review of Systems
-
Skin: Reports Other (L foot wound ulcer )
Data Reviewed
-
Diagnostic Radiology: Report Reviewed by me
Labs: Labs Reviewed by me
[2024-01-29] MEDS: LR 1000 IV ×2 (11:40→19:27)
[2024-01-29] MEDS: STERILE WATER FOR INJECTION 10 ML IV ×2 (11:45→23:42)
[2024-01-29] MEDS: MAXIPIME 2000 MG IV ×2 (11:45→23:42)
[2024-01-29 14:09] LABS: Glucose - Point of Care 282 mg/dl (70-99)
[2024-01-29] MEDS: BACTROBAN 2% OINTMENT 1 APPLIC NASAL (14:14)
[2024-01-29] MEDS: PERIDEX 0.12% ORAL RINSE 15 ML PO (14:15)
--- NOTE | 2024-01-29 15:27 | W.SUR.POST ---
Surgical Immediate Post Op
Note
Pre Op Diagnosis: Left heel gangrene, sepsis
Post Op Diagnosis: Left heel gangrene, sepsis
Procedure Performed: Left heel sharp excisional debridement 6cm x 6cm x 1cm
Primary Surgeon: Cash Castillo MD
Assist: Hannah Jorge
Anesthesia: GETA
Estimated Blood Loss: 20 ml
Fluids: See Anesthesia flowsheet
Drains/Shunts: N/A
Specimens/Cultures: Bone culture
Doppler/Duplex/Angio (Y/N): N
Complications: None
Operative Findings: Successful debridement
--- NOTE | 2024-01-29 15:40 | OR.RPT ---
Operative Report
Operative Report
PROCEDURE DATE: 01/29/2024
Preoperative diagnosis: Left heel gangrene, sepsis
Postoperative diagnosis: Same
Procedure: Urgent excisional debridement left heel gangrene through skin, subcutaneous tissue, muscle/tendon, bone (circular ellipse debrided with approximately 5 cm diameter, 3 to 4 cm depth). Pulse lavage irrigation.
Surgeon: Jonathan
Gunner Mate: RODO Jorge, required for all aspects of procedure including assistance with traction/countertraction, pulse lavage irrigation, wound management.
Complications: None
Anesthesia: General
Indications for procedure:
Left heel gangrene. Concern for wet gangrene. Sepsis. Urgent OR.
Description of procedure:
Patient was identified brought to the operating room placed on the table in supine position. After the adequate administration of anesthesia he was prepped and draped in the standard surgical fashion. A standard preoperative timeout was undertaken
and everybody was in agreement the plan. The region of the heel with dry gangrene and subcutaneous what appeared to be wet gangrene pushing through was ellipsed out with a 10 blade. There was hard callus skin which was tough to get through, but
were able to. Wet gangrenous type tissue was noted in the subcutaneous bed. This was all sharply debrided with the scalpel. Diameter of ellipse of debridement was approximately 5 cm with continued depth down about 3 to 4 cm down to the bone in
some locations. Rongeur was used to debride the bone and send a bone biopsy for culture. Once wound debrided to healthy edges and healthy subcutaneous/deeper tissue, hemostasis was achieved. Pulse lavage irrigation was then performed. Hemostasis
was confirmed. Wound was then packed with Betadine soaked gauze wet to dry dry dressing. Patient tolerated the procedure well.
[2024-01-29 15:58] LABS: Glucose - Point of Care 266 mg/dl (70-99)
[2024-01-29] MEDS: NOVOLOG FLEXPEN-MODERATE RESISTANCE SC (18:32)
[2024-01-29] MEDS: LIPITOR 80 MG PO (18:38)
[2024-01-29] MEDS: NOVOLOG FLEXPEN-MODERATE RESISTANCE 3 UNITS SC (18:43)
[2024-01-29 18:56] LABS: Glucose - Point of Care 219 mg/dl (70-99)
--- NOTE | 2024-01-29 19:22 | PTCARENOTE ---
1715-Received pt from PACU via bed.Pt is awake,alert.Oriented x3.+RUTLEDGE.Denies pain at this time.Oral temperature 97.4.A Fib noted.Left radial A Line intact.Correlates to NIBP.A Line zeroed.O2 4l NC.POX 96%Crackles 1/2 up bilaterally.Pt states he has
a poor appetite.No BM.Pt states he will need to void soon.Left foot dressing intact without drainage.Bilateral toes pink with brisk refill.+ right PT and DP.+ right popliteal pulse.Pt's at bedside.Plan of care discussed.
--- NOTE | 2024-01-29 20:09 | PTCARENOTE ---
Pt received at 19:00. AOx3, pleasant. Afib 80s-90s. L radial a-line, zeroed/transduced and correlates w/ cuff pressure. L PT present with doppler, R DP and PT present with doppler. 4L NC, pulse ox 94%, shallow respirations--crackles b/l bases. Poor
appetite, BS active. L heel dressing CDI. Safe environment maintained, call castellon within reach.
[2024-01-29 21:16] LABS: Glucose - Point of Care 244 mg/dl (70-99)
[2024-01-29] MEDS: DESENEX/MITRAZOL/ZEASORB TOPICAL (22:48)
[2024-01-29] MEDS: PEPCID PO (22:49)
--- NOTE | 2024-01-29 23:55 | PTCARENOTE ---
While asleep, pulse ox decreased to mid 80s, NC increased from 4L to 6L. Pulse ox now improved to mid 90s. Safe environment maintained, call castellon within reach.
[2024-01-30] VITALS (44 sets, daily range): BP systolic 60–153; BP diastolic 40–117
[2024-01-30] MEDS: ATIVAN 0.5 MG IV (02:17)
[2024-01-30] MEDS: NSS (PRESERVATIVE FREE) 0.25 ML IV (02:18)
--- NOTE | 2024-01-30 02:51 | PTCARENOTE ---
Pt restless, anxious and tearful. Denies pain. States he's struggling because he can't get comfortable and can't sleep. Discussed with JESSICA. Med with ativan IV. Will continue to monitor.
[2024-01-30 05:00] LABS: % Basophils 0.1 % (0-2); % Immature Granulocytes 0.6 % (0-0.5); % Lymphocytes 2.4 % (20.5-51.1); % Monocytes 4.5 % (1.7-9.3); % Neutrophils 92.4 % (42.2-75.2); Absolute Immature Granulocytes 0.1 10^3/uL (0-0.05); Absolute Lymphocytes 0.4 10^3/uL (1.2-3.4); Absolute Monocytes 0.7 10^3/uL (0.1-0.6); Absolute Neutrophils 14.4 10^3/uL (1.4-6.5); Hematocrit 32.1 % (39.0-52.0); Hemoglobin 9.8 g/dL (13.0-18.0); Mean Corp Hgb Conc. 30.5 g/dL (33.0-37.0); Mean Corpuscular Hgb 25.9 pg (27.0-31.0); Mean Corpuscular Volume 84.9 fL (80.0-94.0); Mean Platelet Volume 10.2 fL (7.4-10.4); Nucleated Red Blood Cells % 0 % (-); Platelet Count 298 10^3/uL (130-400); Red Blood Cell Count 3.78 10^6/uL (4.70-6.10); Red Cell Dist. Width 18.7 % (11.5-14.5); White Blood Cell Count 15.6 10^3/uL (4.8-10.8)
[2024-01-30 05:07] LABS: INR 3.65
[2024-01-30 05:08] LABS: APTT 57.5 Sec (23.4-35.0)
--- NOTE | 2024-01-30 05:24 | PTCARENOTE ---
Pt more calm after ativan IV. Resting quietly at present time.
[2024-01-30 05:26] LABS: Blood Urea Nitrogen 56 mg/dl (9-20); Calcium 7.4 mg/dl (8.4-10.2); Carbon Dioxide 18 mmol/L (22-30); Chloride 98 mmol/L (98-107); Estimated Creatinine Clearance 40 ml/min; Glucose 226 mg/dl (70-99); Potassium 4.9 mmol/L (3.5-5.1); Sodium 134 mmol/L (135-145); eGFR 36.33
[2024-01-30 05:29] LABS: Vancomycin Random 15.7 ug/ml
--- NOTE | 2024-01-30 07:08 | CON.INTV ---
Consultation
Consultation Request
Date/Time Consultation Requested: 01/30/24
Date/Time Consultation Performed: 01/30/24
Performing Provider: Tiana
Reason for Consultation: Post OP Vasc
Medical History
-
History of Present Illness:
Patient is a 73-year-old male with previous history of hypertension, hyperlipidemia, CHF admitted to on 01/28/2024 for nonhealing left heel wound. He notes that he had a blister that was broken up and on his left heel and was prescribed a
topical antibiotic which did not improve his symptoms. Vascular was consulted and due to progressive lethargy, there is concern for ongoing sepsis. Underwent urgent debridement of heel on 01/29/2024 and transferred postoperatively to ICU.
Past Medical History
Past Medical History: Other (see list below)
Social History
Tobacco: Former Smoker
Alcohol: None
Drug: None
Family History
Family History: Reviewed & Not Pertinent
Allergies / Home Medications
Allergies
Allergy/AdvReac Type Severity Reaction Status Date / Time
adhesive tape Allergy BLISTERED Verified 01/28/24 12:52
hydromorphone [From Dilaudid] AdvReac Nausea Verified 01/28/24 12:52
oxycodone HCl [From Percocet] AdvReac Nausea Verified 01/28/24 12:52
Home Medications
�Medication �Instructions �Recorded �Confirmed �Last Taken �Type
metformin 1,000 mg tablet 1,000 mg PO BID Diabetes 06/22/12 01/28/24 09/10/23 History
apixaban 5 mg tablet (Eliquis) 5 mg PO BID Blood Clot 06/03/15 01/28/24 09/10/23 History
Prevention/Tx
cholecalciferol (vitamin D3) 25 1,000 units PO DAILY Supplement 06/03/15 01/28/24 2 Days Ago History
mcg (1,000 unit) tablet ~09/04/23
insulin aspart U-100 100 unit/mL 7 - 20 units SC AC Diabetes 06/03/15 09/10/2324 History
subcutaneous solution (Novolog
U-100 Insulin aspart)
Bifidobacterium infantis 4 mg 4 mg PO DAILY probiotic 09/04/23 09/10/23 3 Days Ago History
capsule (Align) ~09/03/23
albuterol sulfate 90 mcg/actuation 1 puff inhalation Q4HPRN PRN COPD 09/04/23 01/28/24 6 Months Ago History
aerosol inhaler ~03/08/23
atorvastatin 20 mg tablet 80 mg PO DAILY High Cholesterol 09/04/23 01/28/24 09/10/23 History
dicyclomine 20 mg tablet 20 mg PO DAILYPRN PRN IBS 09/04/23 09/10/23 3 Months Ago History
~06/07/23
famotidine 20 mg tablet 20 mg PO HS Gastrointestinal Issue 09/04/23 01/28/24 09/04/23 22:00 History
furosemide 40 mg tablet 40 mg PO NOON Fluid 09/04/23 01/28/24 09/05/23 12:00 History
Retention/Swelling
insulin degludec 100 unit/mL (3 45 unit SC DAILY Diabetes ##0 09/04/23 09/10/23 09/10/23 History
mL) subcutaneous pen (Tresiba
FlexTouch U-100 insulin)
metoprolol succinate 25 mg 25 mg PO DAILY Blood Pressure 09/04/23 01/28/24 09/10/23 History
tablet,extended release 24 hr
multivitamin 1 tab PO NOON Supplement 09/04/23 09/10/23 09/04/23 12:00 History
umeclidinium 62.5 mcg-vilanterol 1 inh inhalation R DAILY 09/04/23 01/28/24 09/05/23 09:00 History
25 mcg/actuation powdr for Lung/Breathing Issues
inhalation (Anoro Ellipta)
aspirin 81 mg tablet,delayed 81 mg PO DAILY #90 tabs 09/06/23 01/28/24 09/10/23 Rx
release
nystatin 100,000 unit/gram topical 1 applic topical DAILY groin 09/06/23 09/10/23 09/05/23 09:00 History
powder
empagliflozin 10 mg tablet 10 mg PO DAILY 30 days #30 tabs 09/14/23 01/28/24 Unknown Rx
(Jardiance)
lisinopril 10 mg tablet 10 mg PO NOON 30 days #30 tabs 09/14/23 Unknown Rx
spironolactone 25 mg tablet 25 mg PO DAILY 30 days #30 tabs 09/14/23 Unknown Rx
Review of Systems
-
History Source: Patient
All other systems: Negative unless noted
Vitals / Labs / Diagnostic Testing
Vital Signs
Temp Pulse Resp BP Pulse Ox
98.3 F 85 19 117/92 91
01/30/24 03:32 01/30/24 06:00 01/30/24 06:00 01/30/24 05:37 01/30/24 06:00
Lab Data
01/30/24 04:34
01/30/24 04:34
Laboratory Results
01/30/24
04:34
PT 36.0 H
INR 3.65
APTT 57.5 H
Microbiology
01/29/24 15:30 Foot - Left Gram Stain - Preliminary
01/28/24 14:04 Nose MRSA Screen - Final
No Methicillin Resistant Staphylococcus aureus isolated.
01/28/24 12:25 Blood/Venous Blood Culture - Preliminary
No Growth in 24 hours- Final report to follow
Diagnostic Testing:
Physical Exam
-
HEENT: Normocephalic, Anicteric and Moist Mucous Membranes
Cardiovascular: S1/S2 and Regular Rhythm
Respiratory: Rhonchi and Non-Labored Respirations
GI: Soft, Non Distended and Non Tender
Neurology: Awake, Alert, No Motor Deficits and Other (confused at times, but can answer appropriately)
Skin: Warm, Dry and Other (pulses are stable)
General: Comfortable and Other (NAD)
Assessment
-
Patient is a 73-year-old male with previous history of hypertension, hyperlipidemia, CHF admitted to on 01/28/2024 for nonhealing left heel wound. He notes that he had a blister that was broken up and on his left heel and was prescribed a
topical antibiotic which did not improve his symptoms. Vascular was consulted and due to progressive lethargy, there is concern for ongoing sepsis. Underwent urgent debridement of heel on 01/29/2024 and transferred postoperatively to ICU.
Wet gangrene of the left heel status post urgent excisional debridement through bone with lavage and irrigation 01/29/2024
Nonhealing left heel wound
Leukocytosis
RAUL, creatinine 1.9 (BL 1.2-1.3)
Hyponatremia, mild
Hyperglycemia
Conditions present prior to admission
History of heart failure, ICM worsened LVEF at 30-35% - TTE 09/11/23
Hypertension
Hyperlipidemia
Morbid obesity, BMI 40.4
Left anterior fascicular block, chronic
History of persistent atrial fibrillation on Eliquis
Coronary disease with history of WA 20+ years ago
History of TIA
Severe sleep apnea, HST AHI 61/78%, failed CPAP 2021
Diabetes
Chronic DJD, back pain
[id number], quit
Chronic cough, COPD/RLD on PFTs, follows at [facility]-Dr Montiel/Chanelle
PAD
Plan
Off sedation, PRN pain meds
Would avoid further sedating medications
Confusion to a degree, we discussed using CPAP, he was agreeable
RASS goal 0
Cardiac history as noted above
Transthoracic echo from 09/11/2023 shows declined LVEF at 30-35% down from 40% in 2021
Patient follows cardiology (Kim)
He underwent LHC and RHC on 09/13/2023 showed reduced CI and low PCWP with slightly elevated PADP with mild pHTN (mPAP: 23mmHg)- no additional diuresis
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
Rate control with goal HR<110bpm
Replete K>4, Mg>2
COPD, RLD, morbid obesity, untreated severe ERICK noted
He is high risk for repeated procedures/anesthesia
He was agreeable to PAP, order placed, night use
O2 as needed, no known history of home use
Resume home inhalers
No acute findings on CXR, repeat imaging as needed
If no further interventions, can advance diet as tolerated
GI ppx if indicated--on Pepcid 20 qHS
Aspiration precautions
Non healing would of LLE, on abx for coverage, concern for sepsis
s/p debridement 01/29/24, tissue culture sent
Blood culture negative
Complete course
Creat elevated, monitor function/IOs
If ongoing elevation noted, can consult renal
Avoid any nephrotoxic agents
CBC stable
DVT ppx: Eliquis
PT/OT when able
IDDM, resume home meds
accu checks AC qHS
SS coverage
Can likely transfer to floors if doing well and no further interventions, we will sign off upon transfer
Diagnostic Data
Chest X-Ray: 01/28/24- No acute cardiopulmonary process.
09/14/23- No active cardiopulmonary disease.
CT Scan: CHEST 10/18/22- Stable small perifissural pulmonary nodules along the left major fissure. Stable mild small reticulonodular interstitial opacities in the bilateral upper lobes, right greater than left.
CAP 05/04/22- No acute pathology of the chest, abdomen and pelvis identified. Few left upper and lower lobe pulmonary nodules. Bilateral small renal cysts. Bilateral too small to characterize hypodense renal lesions, likely benign cysts. Moderate
fecal material throughout the colon. Mild diverticulosis.
Echo: 12/12/23- Moderately reduced left ventricular systolic function. Estimated left ventricular ejection fraction is 35-40% . Wall motion analysis is limited due to image quality. Mild mitral regurgitation.
Compared to the previous report 12/12/2023 findings are similar no significant change previously estimated ejection fraction 35%
PFT's: 03/29/23 FEV1 1.91 L 77%, FVC 2.57 L 75%, ratio 74. TLC 3.63 L 59%, DLCO 60%--moderately severe restriction, mild diffusion impairment
Reports and relevant images were personally reviewed.
-----
Critical Care time 60 mins -- The patient is admitted for acute critical illness for the treatment of vital organ failure and/or prevention of further life-threatening conditions. Total care includes time spent in review of history, physical exam,
medications, hemodynamic/ventilator parameters, laboratory data, imaging and discussion with house staff, pharmacy, respiratory therapy, roller printer, and nursing.
--- NOTE | 2024-01-30 08:13 | W.PN.HOSP.TC ---
Addendum entered and electronically signed by Val Marcano MD 01/30/24 08:40:
called back. Updated in details.
Addendum entered and electronically signed by Val Marcano MD 01/30/24 08:32:
adding insulin Lantus 10 units daily (STAGE SET DESIGNER 45 units daily) and aspart 5 units AC for hyperglycemia
Original Note:
Today's Communication/Plan
-
see A/P
Assessment / Plan
Assessment / Plan
HP: Patient is 73 years old male with multiple comorbidities presented to the hospital with sepsis due to left foot plantar infected ulcer 2/2 diabetic foot ulcer and peripheral vascular disease.
A/P:
# Sepsis POA due to infected left plantar foot wound/ulcer, in setting of diabetes foot ulcer and peripheral vascular disease:
X-ray of the foot no fractures or erosions evident. Some osteoarthritic changes interphalangeal and first metatarsophalangeal joints. Dorsal talus osteophyte. No clear evidence of osteo.
Elevated CRP
Continue broad-spectrum antibiotics IV Cefepime and vancomycin (Given Zosyn in the ER)
s/p IVF RL, observe off additional IVF
Vascular on board, s/p Left heel extensive sharp excisional debridement 6cm x 6cm x 1cm 01/28,
Plan for staged revascularization procedure 01/30
# Acute on chronic hypoxic respiratory failure
# ERICK, Intolerant to CPAP
At home, pt on 2L NC HS
Currently on 6L NC, wean O2 as tolerated
check CXR for worsening hypoxia
# Peripheral vascular disease:
# S/P LLE arteriogram and stent to SFA and angioplasty to PT per vascular surgery in September this year.
Cont anticoagulation with Eliquis, aspirin, and statins.
Vascular on board
# RAUL, likely prerenal related to sepsis POA:
Creatinine 1.9 today from baseline 1.2
s/p IVF RL, observe off additional IVF
Avoid nephrotoxics, holding STAGE SET DESIGNER Lasix/lisinopril/Aldactone
Cont bladder scans
Monitor renal function
Renal consulted
# CAD:
Continue current anti-ischemic regimen including aspirin, Toprol, and Lipitor
# Permanent atrial fibrillation:
Continue rate control Toprol
STAGE SET DESIGNER Eliquis on hold
# Chronic HFrEF:
Reviewed last echocardiogram and EF 30 to 35% on September 2023
Monitor volume status closely
Dry weight is around 111 kg
Hold diuretics due to RAUL
Holding additional IVF
Continue GDMT with beta-misha with holding parameters, holding Lasix/lisinopril/Aldactone due to RAUL
# Hypertension:
Continue home antihypertensives but with holding parameters
Monitor blood pressure and adjust medications are currently
# Hyperlipidemia:
Continue home statins
# TIA:
Continue anti-ischemic regimen
# Diabetes mellitus type 2:
Diabetic diet
Insulin sliding scale
A1c 6.4%
# Asthma:
Respiratory status stable
Bronchodilators as needed
Continue to monitor
# Obesity:
Lifestyle changes warranted
DVT prophylaxis: STAGE SET DESIGNER Eliquis on hold
CODE STATUS: Full code
DW RN
called to update, calls not answered
total time spent 51 min
Anticipated Discharge: > 48 hours
Subjective/Interval History
-
Date of Service: January 30, 2024
Objective Data
-
Labs:
Laboratory Results
01/30/24
04:34
WBC 15.6 H
Hgb 9.8 L
Hct 32.1 L
Plt Count 298
PT 36.0 H
INR 3.65
APTT 57.5 H
Sodium 134 L
Potassium 4.9
Chloride 98
Carbon Dioxide 18 L
BUN 56 H
Creatinine 1.9 H
Glucose 226 H
Calcium 7.4 L
Vital Signs:
Vital Signs
Temp Pulse Resp BP Pulse Ox
36.8 C 85 19 117/92 91
01/30/24 03:32 01/30/24 06:00 01/30/24 06:00 01/30/24 05:37 01/30/24 06:00
I&O
01/29/24 01/30/24 01/31/24
06:59 06:59 06:59
Intake Total 1360 / 1360 375 / 375
Output Total 300 / 300 200 / 200 700 / 700
Balance 1060 / 1060 175 / 175 -700 / -700
[2024-01-30] MEDS: TOPROL XL 25 MG PO (08:34)
[2024-01-30] MEDS: NOVOLOG FLEXPEN-MODERATE RESISTANCE 1 UNITS SC (08:34)
[2024-01-30] MEDS: ASPIR LOW (ENTERIC COATED) 81 MG PO (08:34)
--- NOTE | 2024-01-30 08:42 | W.CON.NEPH ---
Consultation
-
Date/Time Consultation Requested: 01/29/2024 7:00pm
Date/Time Consultation Performed: 01/30/24 845 am
Requesting Provider: Dr. Marcano
Performing Provider: Dr. Ennis
Reason for Consultation: CKD
Medical History
-
Chief Complaint: CKD
History of Present Illness:
Patient is 73 years old male with history of DM ,hypertension (maintained on lisinopril, metoprolol and aldactone), hyperlipidemia (on statin therapy) CHF (on lasix), CKD with basline of 1.6, , COPD, CAD, presented to the hospital with right foot
ulcer. 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 Patient has not noticed any improvement and he has been having significant amount
of pain that has been progressively getting worse and his ulcer on the bottom of his left foot has been getting worse as well. He also complains of chills. He denies fevers. Denies nausea vomiting or diarrhea. Denies chest pain. Denies shortness
of breath at rest. In the ER, he was found to have leukocytosis with white blood cell count of 18,000 and creatinine 1.5. He was given antibiotics and debrided for his hell ulceration .His creatinine has now increased to 1.9 and nephrology was
consulted. The patient is to be scheduled for staged revascularization procedure on January 31, 2024.
Past Medical History
CKD stage III baseline creatinine 1 point
CHF history with cardiomyopathy with ejection fraction of 35 to 40%
CAD
Peripheral vascular disease
Hypertension
Insulin requiring diabetes
Coronary artery disease
History of TIA
Asthma
History of left lower extremity arteriogram with stent to SFA and angioplasty in September 2023
Social History
Tobacco: Former Smoker
Alcohol: Occasional
Family History
no ckd
Allergies / Home Medications
Allergy/AdvReac Type Severity Reaction Status Date / Time
adhesive tape Allergy BLISTERED Verified 01/28/24 12:52
hydromorphone [From Dilaudid] AdvReac Nausea Verified 01/28/24 12:52
oxycodone HCl [From Percocet] AdvReac Nausea Verified 01/28/24 12:52
�Medication �Instructions �Recorded �Confirmed �Type
metformin 1,000 mg tablet 1,000 mg PO BID Diabetes 06/22/12 01/28/24 History
apixaban 5 mg tablet (Eliquis) 5 mg PO BID Blood Clot 06/03/15 01/28/24 History
Prevention/Tx
cholecalciferol (vitamin D3) 25 1,000 units PO DAILY Supplement 06/03/15 01/28/24 History
mcg (1,000 unit) tablet
insulin aspart U-100 100 unit/mL 7 - 20 units SC AC Diabetes 06/03/15 09/10/23 History
subcutaneous solution (Novolog
U-100 Insulin aspart)
Bifidobacterium infantis 4 mg 4 mg PO DAILY probiotic 09/04/23 09/10/23 History
capsule (Align)
albuterol sulfate 90 mcg/actuation 1 puff inhalation Q4HPRN PRN COPD 09/04/23 01/28/24 History
aerosol inhaler
atorvastatin 20 mg tablet 80 mg PO DAILY High Cholesterol 09/04/23 01/28/24 History
dicyclomine 20 mg tablet 20 mg PO DAILYPRN PRN IBS 09/04/23 09/10/23 History
famotidine 20 mg tablet 20 mg PO HS Gastrointestinal Issue 09/04/23 01/28/24 History
furosemide 40 mg tablet 40 mg PO NOON Fluid 09/04/23 01/28/24 History
Retention/Swelling
insulin degludec 100 unit/mL (3 45 unit SC DAILY Diabetes ##0 09/04/23 09/10/23 History
mL) subcutaneous pen (Tresiba
FlexTouch U-100 insulin)
metoprolol succinate 25 mg 25 mg PO DAILY Blood Pressure 09/04/23 01/28/24 History
tablet,extended release 24 hr
multivitamin 1 tab PO NOON Supplement 09/04/23 09/10/23 History
umeclidinium 62.5 mcg-vilanterol 1 inh inhalation R DAILY 09/04/23 01/28/24 History
25 mcg/actuation powdr for Lung/Breathing Issues
inhalation (Anoro Ellipta)
aspirin 81 mg tablet,delayed 81 mg PO DAILY #90 tabs 09/06/23 01/28/24 Rx
release
nystatin 100,000 unit/gram topical 1 applic topical DAILY groin 09/06/23 09/10/23 History
powder
empagliflozin 10 mg tablet 10 mg PO DAILY 30 days #30 tabs 09/14/23 01/28/24 Rx
(Jardiance)
lisinopril 10 mg tablet 10 mg PO NOON 30 days #30 tabs 09/14/23 Rx
spironolactone 25 mg tablet 25 mg PO DAILY 30 days #30 tabs 09/14/23 Rx
Review of Systems
-
History Source: Patient
All other systems: Negative unless noted
Constitutional: Fatigue
Respiratory: Other (Chronic shortness of breath on oxygen therapy)
Musculoskeletal: Other (left foot ulceration)
Physical Exam
Vital Signs
Vital Signs
Temp Pulse Resp BP Pulse Ox
98.3 F 85 19 117/92 91
01/30/24 03:32 01/30/24 06:00 01/30/24 06:00 01/30/24 05:37 01/30/24 06:00
Lab Results
01/30/24 04:34
01/30/24 04:34
WBC 15.6 10^3/uL (4.8-10.8) H 01/30/24 04:34
RBC 3.78 10^6/uL (4.70-6.10) L 01/30/24 04:34
Hgb 9.8 g/dL (13.0-18.0) L 01/30/24 04:34
Hct 32.1 % (39.0-52.0) L 01/30/24 04:34
Plt Count 298 10^3/uL (130-400) 01/30/24 04:34
Sodium 134 mmol/L (135-145) L 01/30/24 04:34
Potassium 4.9 mmol/L (3.5-5.1) 01/30/24 04:34
Chloride 98 mmol/L (98-107) 01/30/24 04:34
Carbon Dioxide 18 mmol/L (22-30) L 01/30/24 04:34
BUN 56 mg/dl (9-20) H 01/30/24 04:34
Creatinine 1.9 mg/dL (0.7-1.3) H 01/30/24 04:34
eGFR 36.33 01/30/24 04:34
Glucose 226 mg/dl (70-99) H 01/30/24 04:34
Calcium 7.4 mg/dl (8.4-10.2) L 01/30/24 04:34
Albumin 3.4 g/dl (3.5-5.0) L 01/28/24 07:41
Physical Exam
General: AOx3, Nontoxic , NAD
HEENT: PERRL, EOMI, Anicteric, Conjunctivae Clear, Ear/Nose Intact, Hearing Normal, Oropharynx Clear/Moist, Dentition Intact, Facial Symmetry, Neck Supple, Neck: Trachea Midline, No JVD and No Thyromegaly, no Bruits
Respiratory: Coarse to auscultation and decreased to bases, bilaterally with normal lung excursion
Cardiac: S1/S2 and Regular Rate/Rhythm
Breast: Deferred by me
Abdomen: Soft, Nontender, Nondistended, Normal Bowel Sounds and No Hepatosplenomegaly
Rectal: Deferred by Provider
Genito-urinary: No Costovertebral Tenderness
Extremities: No Clubbing, No Cyanosis and No Edema, noted Left foot ulceration, dressed
Skin: No Rash or open lesions
Neuro: Nonfocal/Grossly Intact, CN II-XII (Intact), profound neuropathy in feet
Hematologic/Lymphatic: No Cervical Lymphadenopathy, No Submandibular Lymphadenopathy and No Supraclavicular Lymphadenopathy
Psych: Mood/afflect pleasant, Insight/judgement good and Appropriate
Vascular: Poorly palpable pedal pulses
Data Reviewed
-
Radiology: Image Personally Visualized and interpreted (Chest x-ray appears clear)
Labs: Labs Reviewed by me ([facility])
Old Records: Reviewed (Creatinine 1.2 per review of electronic medical records from 12/06/23)
Assessment/Plan
-
Impression:
RAUL
CKD 3b (1.6)
Metabolic acidosis
Left plantar foot ulceration with gangrenous changes s/p debridement
Ischemic cardiomyopathy
History of hypertension
History of diabetes
Profound peripheral vascular disease
Diabetes
Plan:
RAUL:
-No obvious nephrotoxic
-Patient has been hemodynamically stable
-Check postvoid bladder scan
-Holding Lasix, Jardiance, and KARL inhibitor at this time
-Patient not ideally suited from nephrology standpoint for a gram tomorrow as creatinine continues to climb, he will be at high risk for further kidney failure and possible dialysis
-If it is determined that he absolutely needs to have the procedure tomorrow we can provide contrast prophylaxis with sodium bicarb IVFs
--- NOTE | 2024-01-30 08:45 | PHA.VAN.FU ---
Vancomycin Assessment / Plan
- Assessment
Renal Function: SCR Increasing
WBC's are: Trending Down
In the past 24 hrs, patient has been: Afebrile
Concomitant Antimicrobials: cefepime
- Assessment - Therapeutic Drug Monitoring
Random Level: 15.7 - drawn ~22.5H after previous dose of 1500mg
- Dosing Plan
Dosing by Level: Re-dose today (Vanc 1000mg)
Will trial reducing dosing by 500mg today
However, with increasing SCR, may ultimately require prolonged re-dosing interval
- Monitoring Plan
Random Level: 01/30 06
- Follow Up
Pharmacy will continue to follow.
Vancomycin Follow UP
- -
Patient Age: 73
Patient Sex: Male
Vancomycin Day #: 3
Indication: Skin And Soft Tissue
Requesting Provider: Paul
Pertinent Antimicrobial Allergies:
No known abx allergies
Height / Weight:
Height 5 ft 6 in
Actual Weight 113.398 kg
Pertinent Past Medical History: BMI ~40
- Vital Signs / Lab Results
Temp Pulse Resp BP Pulse Ox
98.3 F 85 19 117/92 91
01/30/24 03:32 01/30/24 06:00 01/30/24 06:00 01/30/24 05:37 01/30/24 06:00
Lab Results - Hematology
01/28/24 01/29/24 01/30/24
07:14 07:22 04:34
WBC 18.1 H 18.4 H 15.6 H
Lab Results - Chemistry
01/28/24 01/28/24 01/29/24
07:14 07:41 07:22
BUN Cancelled 37 H 44 H
Creatinine Cancelled 1.5 H 1.6 H
Estimated Creat Clear Cancelled 50 47
Albumin Cancelled 3.4 L
11/26/24
04:34
BUN 56 H
Creatinine 1.9 H
Estimated Creat Clear 40
Albumin
01/28/24
10:47
Lactic Acid 1.6
Microbiology Results
01/29/24 15:30 Gram Stain - Preliminary
Foot - Left
01/28/24 14:04 MRSA Screen - Final
Nose No Methicillin Resistant Staphylococcus aureus isolated.
01/28/24 12:25 Blood Culture - Preliminary
Blood/Venous No Growth in 24 hours- Final report to follow
Therapeutic Drug Monitoring
Random Vancomycin 15.7 ug/ml 01/30/24 04:34
[2024-01-30 08:55] LABS: Glucose - Point of Care 193 mg/dl (70-99)
--- NOTE | 2024-01-30 09:32 | W.PN.VS ---
Today's Communication / Plan
-
Discussed with Dr. Street
Assessment/Plan
-
POD 1 left heel debridement
Plan:
-Left lower extremity agram tomorrow, n.p.o. after midnight
-Prevalon boots
-Heel offloading boot for ambulation
-Will place wound VAC tomorrow in OR
Subjective Data
-
Date of Service: January 30, 2024
Patient seen at bedside this a.m. Patient complains of feeling frustrated about his situation at this time. No events overnight. No pain noted.
Objective Data
-
Vital Signs
Temp Pulse Resp BP Pulse Ox
96.3 F L 85 19 117/92 91
01/30/24 08:52 01/30/24 06:00 01/30/24 06:00 01/30/24 05:37 01/30/24 06:00
Intake and Output
01/29/24 01/30/24 01/31/24
06:59 06:59 06:59
Intake Total 1360 / 1360 375 / 375
Output Total 300 / 300 200 / 200 700 / 700
Balance 1060 / 1060 175 / 175 -700 / -700
Intake:
Oral fluids 960 / 960
IV fluids (Total) 400 / 400 375 / 375
Lr 1,000 ml @ 60 mls/hr IV . 300 / 300
[id number] JAMIA Rx#:[id number]
NSS 75 / 75
Output:
Urine, Voided 300 / 300 200 / 200 700 / 700
Other:
Number of approximated SMALL 1
amounts of urine
Lab Results
01/30/24 04:34
01/30/24 04:34
Calcium 7.4 mg/dl (8.4-10.2) L 01/30/24 04:34
Magnesium 2.0 mg/dl (1.6-2.3) 01/30/24 04:34
Total Bilirubin 2.6 mg/dl (0.2-1.3) H 01/28/24 07:41
AST 33 U/L (17-59) 01/28/24 07:41
ALT 22 U/L (0-50) 01/28/24 07:41
Alkaline Phosphatase 154 U/L (38-126) H 01/28/24 07:41
Total Protein 7.4 g/dl (6.3-8.2) 01/28/24 07:41
Albumin 3.4 g/dl (3.5-5.0) L 01/28/24 07:41
Physical Exam
-
AAOx3
No tachypnea on nasal cannula
No tachycardia
Abdomen soft
Heel site with minimal ooze, dressing remained dry overnight, wound bed tissue pink some areas slightly pale, small area of bone exposed
Wet-to-dry packed and rewrapped with [place]
--- NOTE | 2024-01-30 09:34 | PN.CDI ---
CDI
- -
CDI:
Physician Documentation Request
Admit Date: 01/28/24 10:56
Dear Doctor Jeet,
Clinical Indicators:
Patient admitted with sepsis.
01/28 CM note, 'He uses 2L at HS.'
01/29 PN note, 'Acute on chronic hypoxic respiratory failure...At home, pt on 2L NC HS...currently on 6L NC'
Please clarify which of the following accurately represents the patient's chronic respiratory status:
Acute Hypoxic Respiratory Failure with chronic respiratory insufficiency (intermittent home 02 use)
Acute on Chronic hypoxic respiratory failure (continuous home 02 use)
Other, please specify
Use of terms such as suspected, likely, concern for, or probable (associated with a specific diagnosis that is being evaluated, monitored, or treated as if it exists) are acceptable and can be coded in the inpatient setting, when documented at the
time of discharge.
Thank you,
Shireen Espinal RN BSN
CDI Specialist
available via tiger text
Please use your independent medical judgment in providing your response.
[2024-01-30] MEDS: LANTUS 0.1 UNITS SC (10:05)
[2024-01-30] MEDS: NOVOLOG FLEXPEN-MODERATE RESISTANCE 3 UNITS SC (11:43)
[2024-01-30] MEDS: NOVOLOG FLEXPEN 5 UNITS SC ×2 (11:43→16:36)
[2024-01-30 11:53] LABS: Glucose - Point of Care 204 mg/dl (70-99)
[2024-01-30] MEDS: ZOFRAN 4 MG IV (12:56)
[2024-01-30] MEDS: STERILE WATER FOR INJECTION 10 ML IV (13:02)
[2024-01-30] MEDS: DESENEX/MITRAZOL/ZEASORB 1 APPLIC TOPICAL ×2 (13:02→21:59)
[2024-01-30] MEDS: MAXIPIME 2000 MG IV (13:02)
[2024-01-30] MEDS: VANCOCIN 200 IV (13:05)
--- NOTE | 2024-01-30 13:39 | CM ---
CM following re: discharge planning.
Reviewed pt's chart, met with pt. Pt is POD 1 left heel debridement. per Vascular surgery wound vac will be placed tomorrow in OR.
Pt expressed to me his anxious feelings regarding: 'What should I do, i cannot sleep, i cannot turn'. Emotional support with reassurance offered and provided and RN addressed pt's concerns.
Pt expressed his desire to return back home at discharge and pt might need a wound vac and VN services. pt is aware and he is requested [facility]. A referral to [facility] made.
D/c plan: most likely home with [facility], wound vac.
CM will follow with discharge plan updates as hospitalization progresses
--- NOTE | 2024-01-30 14:15 | VNURNOTE ---
[facility] liaison called patient to discuss services. He was upset about being in the hospital and upcoming surgery. He did not want to talk. Agreeable to talk later. He is aware of plan for [facility] when DC'ed. Referral placed in [facility].
[2024-01-30] MEDS: RISPERDAL 0.25 MG PO (14:26)
[2024-01-30] MEDS: NOVOLOG FLEXPEN-MODERATE RESISTANCE 5 UNITS SC (16:36)
[2024-01-30] MEDS: HEPARIN 5000 UNITS SC (16:36)
[2024-01-30] MEDS: LIPITOR 80 MG PO (16:36)
[2024-01-30 16:44] LABS: Glucose - Point of Care 279 mg/dl (70-99)
[2024-01-30 18:00] LABS: Glucose - Point of Care 221 mg/dl (70-99)
[2024-01-30] MEDS: NSS 1000 IV (18:00)
[2024-01-30] MEDS: SUBLIMAZE 50 MCG IV ×4 (18:05→22:43)
--- NOTE | 2024-01-30 18:08 | W.PN.UPDATE ---
Update Note
Progress Note Update
Patient with sudden unresponsiveness, not arousable
Sat 77%, stroke alert called, but no focal findings on exam, just general unresponsiveness/respiratory event
Anesthesia called for intubation
CT head and CTA to be done, care team notified
RAUL noted, will recheck labs
Stat ABG sent
Transfer back to ICU
...
Additional critical care time 30 mins (total 90 mins)
--- NOTE | 2024-01-30 18:12 | W.PN.ANESINT ---
Anesthesia Intubation Note
- Intubation Note
Intubation Note:
Diagnosis: hypoxia
Blade: Alder 4
Tube Size: 7.0
Depth: 23 teeth
Side Taped: right
Drugs Used: prop - 100mg; rocuronium 50mg
Grade View: 1
EtCO2 Present: yes
Atraumatic: yes
Attempts: one
Insertion Start and Stop Time: 18:05-18:06
SaO2 Pre: 95
SaO2 Post: 98
Glidescope Used:yes
Other Airway Adjustments:
Pre-Oxygenated: yes
Portable Chest X-Ray:
RSI:
Suctioned: yes
Bilateral Breath Sounds Confirmed: yes
Vent Settings:
Settings per ___Attending Physician
[2024-01-30 18:22] LABS: B.E. -11.6 mmol/L; O2 Saturation % 98.7 % (94-98); PCO2 42 mmHg (35-48); PO2 139 mmHg (83-108)
[2024-01-30 18:23] LABS: pH 7.19 (7.35-7.45)
--- NOTE | 2024-01-30 18:23 | PTCARENOTE ---
Pt alert and oriented today. Reporting 'I just don't feel good'. Intermittent nausea relieved by zofran. Attempted to wean O2. SpO2 decreased to 87% on 4L NC. SpO2 92-93% on 6L NC. Pt anxious this afternoon. Stating 'I don't know what to do.
I just want to go home' notified and PRN Risperdal given. Pt assisted out of bed to chair, anxiety improved.
Around 1630, BS check and coverage given. Dinner arrived shortly after and pt sitting on the edge of the bed eating around 1700. Pt had been downgraded to telemetry. Report given to the floor. Staff went to room for transfer and pt was
unresponsive. BG 221. Aroused slightly, following some commands. Attempted [facility] and stroke alert called. Moving all extremities. No facial droop noted. Denied vision changes. Pt intermittently responsive. Cold and clammy. Unable to get SpO2.
Difficulty get BP originally d/t pt moving around. Pt Dr Greer, anesthesia called and pt intubated. Message sent to Dr You and Dr Marcano to notify of change. Pt changed back to ICU status.
--- NOTE | 2024-01-30 18:49 | W.PN.UPDATE ---
Update Note
Progress Note Update
Unable to contact spouse Lalitha Wiggins about recent intubation. �Her mail box is full and unable to leave her a message.�
[2024-01-30] MEDS: SUBLIMAZE 100 IV (19:45)
[2024-01-30] MEDS: DIPRIVAN 100 IV (20:00)
[2024-01-30] MEDS: NSS 250 IV (20:11)
[2024-01-30 20:32] LABS: Hematocrit 29.7 % (39.0-52.0); Mean Corp Hgb Conc. 30.3 g/dL (33.0-37.0); Mean Corpuscular Hgb 26.1 pg (27.0-31.0); Mean Corpuscular Volume 86.1 fL (80.0-94.0); Mean Platelet Volume 10.1 fL (7.4-10.4); Platelet Count 301 10^3/uL (130-400); Red Blood Cell Count 3.45 10^6/uL (4.70-6.10); Red Cell Dist. Width 19.1 % (11.5-14.5); White Blood Cell Count 14.7 10^3/uL (4.8-10.8)
[2024-01-30] MEDS: NEO-SYNEPHRINE 250 IV (20:35)
[2024-01-30 20:46] LABS: Triglycerides 140 mg/dl (10-149)
[2024-01-30 20:47] LABS: Blood Urea Nitrogen 64 mg/dl (9-20); Calcium 7.6 mg/dl (8.4-10.2); Carbon Dioxide 18 mmol/L (22-30); Chloride 95 mmol/L (98-107); Estimated Creatinine Clearance 34 ml/min; Glucose 210 mg/dl (70-99); Magnesium 2.3 mg/dl (1.6-2.3); Potassium 4.7 mmol/L (3.5-5.1); Sodium 133 mmol/L (135-145); eGFR 30.47
[2024-01-30 20:49] LABS: Lactic Acid 5.4 mmol/L (0.7-2.0)
--- NOTE | 2024-01-30 22:06 | PTCARENOTE ---
received report 1899, pt intubated, restless biting on tube and pulling up, RUTLEDGE, following commands, PERRLA 3, Fent, prop, cam gtts started and titrated per worklist, AC 18/500//100/5 @ change of shift FIO2 down to 60% SpO2 99%, AFIB on the monitor,
HR 105, doppler R pedal, doppler L post tib, + radials, BSx4 hypoactive round obese, OGT 60cm @ lip to low int. suction, sosa placed 1944 yellow output 15 hr [employer] notified, L heel wrapped with Kerlix and alejandro bandage from post debridement, IV YUDITH and
R wrist, otherwise refer to documentation.
[2024-01-31] VITALS (12 sets, daily range): BP systolic 59–117; BP diastolic 49–71; BMI 40.2
[2024-01-31] MEDS: MAXIPIME 2000 MG IV (00:06)
[2024-01-31] MEDS: STERILE WATER FOR INJECTION 10 ML IV ×3 (00:06→17:49)
[2024-01-31] MEDS: HEPARIN 5000 UNITS SC ×2 (00:06→07:35)
[2024-01-31] MEDS: NOVOLOG FLEXPEN-MODERATE RESISTANCE 1 UNITS SC ×4 (00:07→17:54)
[2024-01-31 00:17] LABS: Glucose - Point of Care 186 mg/dl (70-99)
--- NOTE | 2024-01-31 00:18 | PTCARENOTE ---
systems reviewed, gtts titrated per worklist, pt taken to CT 2330 by RT and two RN's pt tolerated the trip and remained stable, CHG bath and linens changed, FIO2 decreased to 40% by RT other setting remain as previously documented, urine output >30
last 2 hours, otherwise refer to documentation.
[2024-01-31] MEDS: DIPRIVAN 100 IV ×4 (02:55→23:39)
--- NOTE | 2024-01-31 04:00 | DOWNTIME ---
There was a [employer] Downtime on 01/31/2024 from 0100 to 01/31/2024 at 0350. Downtime documentation of patient's care, including medication administrations, has been reconciled in the electronic record per guidelines. Refer to the
patient's paper chart under the miscellaneous tab to see printed paper medication records and downtime forms.
--- NOTE | 2024-01-31 04:07 | W.PN.UPDATE ---
Update Note
Progress Note Update
Procedure Note: Arterial Line�
� Right Wrist Arrow 20 (05/07)�
Diagnosis:��sepsis
IV Line Comments: Uneventful Procedure�
Misael's test completed pre-procedure: Yes�
A-Line Comments: Sterile technique as per standard protocol, Ultrasound guided insertion�
Functioning A-line in situ: Yes�
A-line Insertion Start Time: 0200��
A-line in at:�0230�
[2024-01-31] MEDS: NSS 1000 IV (04:20)
[2024-01-31] MEDS: LEVOPHED 250 IV ×2 (04:21→12:57)
[2024-01-31 04:44] LABS: B.E. -6.5 mmol/L; HCO3 17.7 mmol/L (21-28); Ionized Calcium 1.07 mMOL/L (1.15-1.33); PCO2 30 mmHg (35-48); PO2 158 mmHg (83-108); Potassium 4.1 mMOL/L (3.5-5.1); Sodium 127 mMOL/L (136-145); pH 7.38 (7.35-7.45)
[2024-01-31 04:46] LABS: O2 Therapy 60
[2024-01-31 04:57] LABS: Lactic Acid 1.1 mmol/L (0.7-2.0)
[2024-01-31] MEDS: CALCIUM CHLORIDE 10% SYRINGE 60 MG IV (05:06)
[2024-01-31 05:09] LABS: % Basophils 0.1 % (0-2); % Eosinophils 0.3 % (0-6); % Immature Granulocytes 0.7 % (0-0.5); % Lymphocytes 3.4 % (20.5-51.1); % Monocytes 4.3 % (1.7-9.3); % Neutrophils 91.2 % (42.2-75.2); Absolute Immature Granulocytes 0.1 10^3/uL (0-0.05); Absolute Lymphocytes 0.5 10^3/uL (1.2-3.4); Absolute Monocytes 0.7 10^3/uL (0.1-0.6); Absolute Neutrophils 13.8 10^3/uL (1.4-6.5); Hematocrit 29.3 % (39.0-52.0); Hemoglobin 9.5 g/dL (13.0-18.0); Mean Corp Hgb Conc. 32.4 g/dL (33.0-37.0); Mean Corpuscular Hgb 26.2 pg (27.0-31.0); Mean Corpuscular Volume 80.7 fL (80.0-94.0); Mean Platelet Volume 10.3 fL (7.4-10.4); Nucleated Red Blood Cells % 0.5 % (-); Platelet Count 335 10^3/uL (130-400); Red Blood Cell Count 3.63 10^6/uL (4.70-6.10); Red Cell Dist. Width 18.6 % (11.5-14.5); White Blood Cell Count 15.2 10^3/uL (4.8-10.8)
[2024-01-31] MEDS: SUBLIMAZE 100 IV ×2 (05:10→16:55)
[2024-01-31 05:15] LABS: Blood Urea Nitrogen 63 mg/dl (9-20); Calcium 7.3 mg/dl (8.4-10.2); Carbon Dioxide 17 mmol/L (22-30); Chloride 101 mmol/L (98-107); Estimated Creatinine Clearance 38 ml/min; Glucose 158 mg/dl (70-99); Magnesium 2.2 mg/dl (1.6-2.3); Potassium 4.4 mmol/L (3.5-5.1); Sodium 132 mmol/L (135-145); eGFR 34.16
[2024-01-31 06:03] LABS: Glucose - Point of Care 188 mg/dl (70-99)
--- NOTE | 2024-01-31 07:10 | W.PN.INTV ---
Today's Communication / Plan
Recommendations
Intubated overnight, transferred back to ICU
Unresponsiveness, now on sedation/Levophed
Likely acute on chronic heart failure, diuresis, appreciate renal consult
Troponin elevation, consult cards
Can trial SBT later today or in a.m.
Assessment
-
Patient is a 73-year-old male with previous history of hypertension, hyperlipidemia, CHF admitted to on 01/28/2024 for nonhealing left heel wound. He notes that he had a blister that was broken up and on his left heel and was prescribed a
topical antibiotic which did not improve his symptoms. Vascular was consulted and due to progressive lethargy, there is concern for ongoing sepsis. Underwent urgent debridement of heel on 01/29/2024 and transferred postoperatively to ICU.
Unresponsiveness, acute hypoxic respiratory failure status post intubation 01/30/24
Acute on chronic congestive heart failure exacerbation with reduced ejection fraction
Wet gangrene of the left heel status post urgent excisional debridement through bone with lavage and irrigation 01/29/2024
Nonhealing left heel wound
Leukocytosis
RAUL, creatinine 1.9 (BL 1.2-1.3)
Hyponatremia, mild
Hyperglycemia
Conditions present prior to admission
History of heart failure, ICM worsened LVEF at 30-35% - TTE 09/11/23
Hypertension
Hyperlipidemia
Morbid obesity, BMI 40.4
Left anterior fascicular block, chronic
History of persistent atrial fibrillation on Eliquis
Coronary disease with history of AR 20+ years ago
History of TIA
Severe sleep apnea, HST AHI 61/78%, failed CPAP 2021
Diabetes
Chronic DJD, back pain
[id number], quit
Chronic cough, COPD/RLD on PFTs, follows at [facility]-Dr Montiel/Chanelle
PAD
Plan
Sedation: Fentanyl, propofol
RASS goal -2
CT head and neck obtained, carotid disease noted
Likely acute on chronic heart failure exacerbation
Troponin elevated, consult cards
Cardiac history as noted above
Transthoracic echo from 09/11/2023 shows declined LVEF at 30-35% down from 40% in 2021
Patient follows cardiology (Kim)
He underwent LHC and RHC on 09/13/2023 showed reduced CI and low PCWP with slightly elevated PADP with mild pHTN (mPAP: 23mmHg)- no additional diuresis
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
Rate control with goal HR<110bpm
Replete K>4, Mg>2
Unresponsiveness status post intubation
COPD, RLD, morbid obesity, untreated severe ERICK noted
He is high risk for repeated procedures/anesthesia
Resume home inhalers
CT chest without PE, demonstrates edema/effusion
If no further interventions, can advance diet as tolerated
GI ppx if indicated--on Pepcid 20 qHS
Aspiration precautions
Non healing would of LLE, on abx for coverage, concern for sepsis
s/p debridement 01/29/24, tissue culture sent
Blood culture negative
Complete course
Creat elevated, monitor function/IOs
If ongoing elevation noted, consult renal
Avoid any nephrotoxic agents
Diuresis today
CBC stable
DVT ppx: Eliquis
PT/OT when able
IDDM, resume home meds
accu checks AC qHS
SS coverage
Diagnostic Data
Chest X-Ray: 01/28/24- No acute cardiopulmonary process.
09/14/23- No active cardiopulmonary disease.
CT Scan: CHEST 10/18/22- Stable small perifissural pulmonary nodules along the left major fissure. Stable mild small reticulonodular interstitial opacities in the bilateral upper lobes, right greater than left.
CAP 05/04/22- No acute pathology of the chest, abdomen and pelvis identified. Few left upper and lower lobe pulmonary nodules. Bilateral small renal cysts. Bilateral too small to characterize hypodense renal lesions, likely benign cysts. Moderate
fecal material throughout the colon. Mild diverticulosis.
Echo: 12/12/23- Moderately reduced left ventricular systolic function. Estimated left ventricular ejection fraction is 35-40% . Wall motion analysis is limited due to image quality. Mild mitral regurgitation.
Compared to the previous report 12/12/2023 findings are similar no significant change previously estimated ejection fraction 35%
PFT's: 03/29/23 FEV1 1.91 L 77%, FVC 2.57 L 75%, ratio 74. TLC 3.63 L 59%, DLCO 60%--moderately severe restriction, mild diffusion impairment
Reports and relevant images were personally reviewed.
-----
Critical Care time 35 mins -- The patient is admitted for acute critical illness for the treatment of vital organ failure and/or prevention of further life-threatening conditions. Total care includes time spent in review of history, physical exam,
medications, hemodynamic/ventilator parameters, laboratory data, imaging and discussion with house staff, pharmacy, respiratory therapy, bag end sewer, and nursing.
Subjective Dataa
Subjective Data
Date of Service:
Date of Service: January 31, 2024
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
Subjective:
Events overnight noted, intubated due to unresponsiveness
CT showing pulmonary edema, effusion
Remains on sedation, low-dose Levophed
Objective Data
Data Reviewed
Vital Signs / I&O / Oxygen:
Vital Signs
Temp Pulse Resp BP Pulse Ox
97.4 F 54 18 85/54 98
01/31/24 03:45 01/31/24 06:00 01/31/24 06:00 01/31/24 02:39 01/31/24 06:00
Intake and Output
01/30/24 01/31/24 02/01/24
06:59 06:59 06:59
Intake Total 375 / 375 1451.8 / 1451.8
Output Total 200 / 200 1380 / 1380
Balance 175 / 175 71.8 / 71.8
SaO2 [A/C] 100
SaO2 98
Nasal Cannula flow liters per 6
minute
Physical Exam
General: Comfortable and Other (Critically ill)
HEENT: Normocephalic, Anicteric and Moist Mucous Membranes
Cardiovascular: S1-S2 and Regular Rhythm
Respiratory: Crackles, Non-Labored Respirations, ET Tube and Other (Decreased breath sounds on the right)
GI: Soft, Non Distended and Non Tender
Neurology: Lethargic (Sedated/intubated) and Non Verbal
Skin: Warm, Dry and Good Color
Labs/Micro/Reports
Lab Data
01/31/24 04:35
01/31/24 04:35
Laboratory Results
01/30/24 01/31/24
18:17 04:35
pH 7.19 L* 7.38
pCO2 42 30 L
pO2 139 H 158 H
HCO3 16.0 L 17.7 L
O2 Delivery Level 60
Microbiology
01/28/24 12:25 Blood/Venous Blood Culture - Preliminary
No Growth in 48 hours- Final report to follow
01/29/24 15:30 Foot - Left Tissue Culture - Preliminary
01/29/24 15:30 Foot - Left Gram Stain - Preliminary
01/28/24 14:04 Nose MRSA Screen - Final
No Methicillin Resistant Staphylococcus aureus isolated.
[2024-01-31] MEDS: ASPIR LOW (ENTERIC COATED) PO (07:35)
[2024-01-31] MEDS: DESENEX/MITRAZOL/ZEASORB 1 APPLIC TOPICAL ×2 (07:35→19:38)
[2024-01-31] MEDS: MIRALAX TUBE (07:36)
[2024-01-31] MEDS: PROTONIX IV 40 MG IV (07:36)
[2024-01-31] MEDS: NSS (PRESERVATIVE FREE) 10 ML IV (07:36)
--- NOTE | 2024-01-31 07:57 | PHA.VAN.FU ---
Vancomycin Assessment / Plan
- Assessment
Renal Function: SCR Decreasing
WBC's are: Stable
In the past 24 hrs, patient has been: Afebrile
Concomitant Antimicrobials: cefepime
- Assessment - Therapeutic Drug Monitoring
Random Level: 20 - drawn ~15.5H after previous dose of 1g
Sample was not protected from light and may have had some additional degradation of sample
- Dosing Plan
Dosing by Level: Hold off on dosing today (level increased despite reduced dosing)
- Monitoring Plan
Random Level: 01/31 0600
- Follow Up
Pharmacy will continue to follow.
Vancomycin Follow UP
- -
Patient Age: 73
Patient Sex: Male
Vancomycin Day #: 4
Indication: Skin And Soft Tissue
Requesting Provider: Miller
Pertinent Antimicrobial Allergies:
No known abx allergies
Height / Weight:
Height 5 ft 6 in
Actual Weight 113 kg
Pertinent Past Medical History: BMI ~40
- Vital Signs / Lab Results
Temp Pulse Resp BP Pulse Ox
97.9 F 51 16 97/49 99
01/31/24 07:30 01/31/24 07:42 01/31/24 07:42 01/31/24 07:42 01/31/24 07:42
Lab Results - Hematology
01/29/24 01/30/24 01/30/24
07:22 04:34 20:24
WBC 18.4 H 15.6 H 14.7 H
01/31/24
04:35
WBC 15.2 H
Lab Results - Chemistry
01/28/24 01/29/24 01/30/24
07:41 07:22 04:34
BUN 37 H 44 H 56 H
Creatinine 1.5 H 1.6 H 1.9 H
Estimated Creat Clear 50 47 40
Albumin 3.4 L
01/30/24 01/31/24
20:24 04:35
BUN 64 H 63 H
Creatinine 2.2 H 2.0 H
Estimated Creat Clear 34 38
Albumin
01/28/24 01/30/24 01/31/24
10:47 20:24 04:35
Lactic Acid 1.6 5.4 H* 1.1
Microbiology Results
01/28/24 12:25 Blood Culture - Preliminary
Blood/Venous No Growth in 48 hours- Final report to follow
01/29/24 15:30 Tissue Culture - Preliminary
Foot - Left Gram Stain - Preliminary
01/28/24 14:04 MRSA Screen - Final
Nose No Methicillin Resistant Staphylococcus aureus isolated.
Therapeutic Drug Monitoring
Random Vancomycin 20.0 ug/ml 01/31/24 04:35
[2024-01-31] MEDS: LANTUS 0.1 UNITS SC (07:59)
--- NOTE | 2024-01-31 08:01 | W.PN.HOSP.TC ---
Addendum entered and electronically signed by Val Marcano MD 01/31/24 12:48:
# Acute Hypoxic Respiratory Failure with chronic respiratory insufficiency (intermittent home 02 use)
Addendum entered and electronically signed by Val Marcano MD 01/31/24 08:36:
gentle IVF restarted now with NPO status 2/2 intubation
Original Note:
Today's Communication/Plan
-
see A/P
Assessment / Plan
Assessment / Plan
HP: Patient is 73 years old male with multiple comorbidities presented to the hospital with sepsis due to left foot plantar infected ulcer 2/2 diabetic foot ulcer and peripheral vascular disease.
A/P:
# Sepsis POA due to infected left plantar foot wound/ulcer, in setting of diabetes foot ulcer and peripheral vascular disease:
X-ray of the foot showed no fractures or erosions. Some osteoarthritic changes interphalangeal and first metatarsophalangeal joints. Dorsal talus osteophyte. No clear evidence of osteo.
Vascular on board, s/p Left heel extensive sharp excisional debridement 6cm x 6cm x 1cm 01/28
Follow tissue culture
Continue broad-spectrum antibiotics IV Cefepime and vancomycin (given Zosyn in the ER)
ID CS (would prefer to avoid vancomycin with rising SCr)
There is NO further plan for staged revascularization procedure
# Unclear cause of shock 01/29
# Acute on chronic hypoxic respiratory failure, resulting in intubation 01/29
Started Levophed, cont but wean as tolerated
cont mechanical ventilation, Mx per Quantitative Research Analyst
Pt on 2L NC HS SPECIALTY TRIMMER
CT PE negative for PE, noted large right lower lobe consolidation and moderate right pleural effusion. Left lower lobe subsegmental atelectasis and small left pleural effusion. Groundglass opacity and mild septal thickening suggesting mild to
moderate pulmonary edema.
Pulm/Quantitative Research Analyst on board
# Peripheral vascular disease
# S/P LLE arteriogram and stent to SFA and angioplasty to PT per vascular surgery in September this year.
Cont anticoagulation with aspirin, and statins.
Replacing SPECIALTY TRIMMER Eliquis with heparin drip. Ok with Vascular
Vascular on board
# RAUL, likely prerenal related to sepsis POA:
Creatinine 2.0 today from baseline 1.2
s/p IVF RL, observe off additional IVF
Avoid nephrotoxics, holding SPECIALTY TRIMMER Lasix/lisinopril/Aldactone
Cont bladder scans
Monitor renal function
Renal on board
# CAD
Continue current anti-ischemic regimen including aspirin, Toprol, and Lipitor
# Permanent atrial fibrillation:
Rate control Toprol on hold with shock
Replacing SPECIALTY TRIMMER Eliquis with heparin drip
# Chronic HFrEF:
Reviewed last echocardiogram and EF 30 to 35% on September 2023
Monitor volume status closely
Dry weight is around 111 kg
Holding diuretics due to RAUL
Holding additional IVF
Continue GDMT with beta-misha with holding parameters, holding Lasix/lisinopril/Aldactone due to RAUL
# Hypertension
resume antihypertensive when able
# Hyperlipidemia
Continue home statins
# TIA
Continue anti-ischemic regimen
# Diabetes mellitus type 2
restarted insulin with Lantus 10 units daily (SPECIALTY TRIMMER 45 units daily)
Insulin sliding scale
A1c 6.4%
# Asthma
Respiratory status stable
Bronchodilators as needed
Continue to monitor
# Morbid Obesity
BMI 40
DVT prophylaxis: Replacing SPECIALTY TRIMMER Eliquis with heparin drip. Ok with Quantitative Research Analyst and Vascular
CODE STATUS: Full code
DW RN
Updated on the phone. Extensive discussion.
CC time spent 51 min
Anticipated Discharge: > 48 hours
Subjective/Interval History
-
Date of Service: January 31, 2024
Objective Data
-
Labs:
Laboratory Results
01/30/24 01/31/24
20:24 04:35
WBC 14.7 H 15.2 H
Hgb 9.0 L 9.5 L
Hct 29.7 L 29.3 L
Plt Count 301 335
HCO3 17.7 L
Sodium 133 L 132 L
Potassium 4.7 4.4
Chloride 95 L 101
Carbon Dioxide 18 L 17 L
BUN 64 H 63 H
Creatinine 2.2 H 2.0 H
Glucose 210 H 158 H
Calcium 7.6 L 7.3 L
Vital Signs:
Vital Signs
Temp Pulse Resp BP Pulse Ox
36.6 C 51 16 97/49 99
01/31/24 07:30 01/31/24 07:42 01/31/24 07:42 01/31/24 07:42 01/31/24 07:42
I&O
01/30/24 01/31/24 02/01/24
06:59 06:59 06:59
Intake Total 375 / 375 1451.8 / 1590.8 139.0 / 139.0
Output Total 200 / 200 1380 / 1380
Balance 175 / 175 71.8 / 210.8 139.0 / 139.0
Review of Systems
-
Unable to obtain full review of systems at this time due to: Patient Intubation
Physical Exam
-
General: Well Developed, Well Nourished, Comfortable, Respiratory Distress, Intubated and Appears Chronically Ill
HEENT: Normocephalic, Atraumatic, Nose Appears Normal, Ears Appear Normal and Oxygen (vent)
Respiratory: Clear to Auscultation and Non Labored Respirations; Negative Accessory Resp Muscle Use
Cardiac: Regular Rhythm and S1/S2
GI: Soft, Nontender, Nondistended and Normal Bowel Sounds
Musculoskeletal: Other (L foot in wound dressing )
Skin: Warm and Dry
Neuro: Sedated (minimally)
Psych: Calm
Data Reviewed
-
Diagnostic Radiology: Image personally visualized and interpreted and Report Reviewed by me
CT Scan: Report Reviewed by me
Labs: Labs Reviewed by me
[2024-01-31 09:20] LABS: APTT 43.5 Sec (23.4-35.0); PT 27.4 Sec (11.4-14.6)
--- NOTE | 2024-01-31 09:21 | PTCARENOTE ---
recd pt handoff in room, initially resting, ETT to vent tolerating current settings, VS stable on 5 mcg/min levophed. with oral care or any stimulation, awakens, RUTLEDGE, pulling at restraints and attempting to grab ETT tube. bilat wrist restraints
maintained. turned and repositioned. assessment as documented. Seen by Drs. Marcano and vascular team, heel dressing removed, awaiting application of wound vac. tolerating dressing change. family updated by Dr. Marcano. comfortable on present
sedation/pain med.
[2024-01-31 09:23] LABS: COVID-19 Antigen Negative (Negative)
[2024-01-31 09:24] LABS: ALT (SGPT) 135 U/L (0-50); AST (SGOT) 222 U/L (17-59); Albumin 2.6 g/dl (3.5-5.0); Alkaline Phosphatase 175 U/L (38-126); Direct Bilirubin 0.7 mg/dl (0.0-0.4); Total Bilirubin 1.3 mg/dl (0.2-1.3); Total Protein 6.2 g/dl (6.3-8.2)
--- NOTE | 2024-01-31 09:35 | CON.ID ---
Consultation
-
Date/Time Consultation Requested: 01/31/24 8:10
Date/Time Consultation Performed: 01/31/24 9:38
Requesting Provider: Dr Marcano
Performing Provider: Dr Maurer
Reason for Consultation: LEFT foot ulcer
Chief Complaint / Past History
Chief Complaint
Left foot ulcer
History of Present Illness
Mr Wiggins is a 73 year old male with history of COPD, CHF, CKD3, class III obesity who presented here on 01/27 when he noted a new blister on the LEFT heel. He saw Dr Hannah his resistor testing machine operator who assessed him and started a topical antibiotics.
There was no improvement and actually progression of pain and size of ulcer. New generalized malaise. New chills but no roger fevers, nausea, vomiting, diarrhea, chest pain or shortness of breath
Since arrival here he has has intermittent mild hypothermia, no roger fevers, bp hypotensive requiring two pressors initially both phenylephrine and norepinephrine, pulse 40s to 50s, wbc initially 18.4 no 15.2, hgb 9.5, plt 335, L shift is noted,
eos were initially not present but have returned today, initial ESR 95, pH initially 7.19, pco2 42, p02 129, hco3 16, Cr baseline is 1.2 on arrival it was 1.5 and today it is 2.0, lactic acid peaked at 5.4 and today is 1.1, a 132, a1c 6.4 (patient
reports hes never received a blood transfusion), t bili 1.3, d bili 0.7, ast today 222, alt 135, alk phos 175, crp >270, probnp 12,000, covid ag on arrival negative, 12/12/23 echo: with EF 35%, 01/27 L foot xray: no overt osteomyelitis, 01/27 CXR no
acute cp process, 01/28 perip artery: abis not obtainable, TBIs: monophasic, possible R infrapop diease, L leg< patent stent, no evidence of stenosis. Seen by vascular surgery assessed as having dry gangrene with possible wet gangrene
centrally. 01/28 patient taken to the OR for urgent debridement wet gangrene confirmed, gangrenous tissue was down to the bone, bone debrided and sent for bone biopsy and culture. 01/29 CT head: indication AMS, no acute abnormality. Patient
intubated for airway protection. Spoke with RN at the bedside sarah beth stover who confirms that with sedation vacation this AM patient is nodding yes/no appropriately, moving all extremities, no rhythmic movements or myoclonus witnessed. ID is
consulted for assistance with management.
Past History
Additional Past Medical History:
hypertension, hyperlipidemia, CHF, COPD, CAD, CKD3
Additional Past Surgical History:
Orthopedic and Other (Vascular Surgery)
Allergy History:
adhesive tape Allergy (Verified 01/28/24 12:52)
BLISTERED
hydromorphone [From Dilaudid] Adverse Reaction (Verified 01/28/24 12:52)
Nausea
oxycodone HCl [From Percocet] Adverse Reaction (Verified 01/28/24 12:52)
Nausea
Medications Reviewed: Yes
Social History
Tobacco: Former Smoker
Alcohol: None
Drug: None
Family History
Family History: Not Pertinent
Review of Systems
Review of Systems
unable to obtain due to the condition of the patient
Vital Signs
Temp Pulse Resp BP Pulse Ox
97.9 F 51 16 97/49 99
01/31/24 07:30 01/31/24 07:42 01/31/24 07:42 01/31/24 07:42 01/31/24 08:10
Physical Exam
Physical Exam
Constitutional: No Acute Distress, Chronically Ill and Obese
Cardiovascular: Regular Rate and S1/S2; Negative Murmur or Rub
Pulmonary: Clear and Symmetric; Negative Wheezes, Rales or Rhonchi
Gastrointestinal: Soft, Non Tender, Non Distended and Normal Bowel Sounds
Skin: Warm and Dry; Negative Rash or Jaundice
Lab / Diagnostic Study Results
01/31/24 08:29
01/31/24 04:35
Abs Immat Gran (auto) 0.1 10^3/uL (0-0.05) H 01/31/24 04:35
Absolute Neuts (auto) 13.8 10^3/uL (1.4-6.5) H 01/31/24 04:35
Absolute Lymphs (auto) 0.5 10^3/uL (1.2-3.4) L 01/31/24 04:35
Absolute Monos (auto) 0.7 10^3/uL (0.1-0.6) H 01/31/24 04:35
Absolute Basos (auto) 0.0 10^3/uL (0-0.2) 01/31/24 04:35
Immature Gran % 0.7 % (0-0.5) H 01/31/24 04:35
Neutrophils % 91.2 % (42.2-75.2) H 01/31/24 04:35
Lymphocytes % 3.4 % (20.5-51.1) L 01/31/24 04:35
Monocytes % 4.3 % (1.7-9.3) 01/31/24 04:35
Eosinophils % 0.3 % (0-6) 01/31/24 04:35
Basophils % 0.1 % (0-2) 01/31/24 04:35
ESR 95 mm/hour (0-20) H 01/28/24 07:14
PT 27.4 Sec (11.4-14.6) H 01/31/24 08:53
INR 2.50 01/31/24 08:53
Lactic Acid 1.1 mmol/L (0.7-2.0) 01/31/24 04:35
C-Reactive Protein > 270.00 mg/L (0.0-10.00) H 01/28/24 07:41
Microbiology Results
Micro:
01/29/24 15:30 Tissue Culture - Preliminary
Foot - Left Staphylococcus aureus
Gram Stain - Preliminary
01/28/24 12:25 Blood Culture - Preliminary
Blood/Venous No Growth in 48 hours- Final report to follow
01/28/24 14:04 MRSA Screen - Final
Nose No Methicillin Resistant Staphylococcus aureus isolated.
Assessment / Plan
Left Foot ulcer with wet gangrene
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
RAUL on CKD
Shock liver
AMS
Multisystem organ failure - improving
Class III obesity
- a single blood culture was sent for shock 01/27
- patient remains in shock - indication for two sets of blood cultures to rule out bacteremia now
- 01/28 tissue culture with S aureus
- note nephrology concern for possible need for HD - will avoid nephrotoxic medications/medication combinations
- broad spectrum coverage including coverage for anaerobes, MRSA, and gram negatives recommended for moderate to severe diabetic foot infections and gangrene
- continue vancomycin
- given AMS stopped cefepime - possible cefepime induced neurotoxicity; continue monitoring in the ICU, daily assessment of neurostatus with sedation holiday
- start meropenem - likely deescalation to unasyn tomorrow if no pseudomonas IDd in the OR culture
Risks of treatment failure for calcaneal osteomyelitis relatively high, nevertheless agree with attempts at foot salvage which impacts quality of life. Pleased that Dm2 under control, patient is not an active smoker and has had revascularization.
Patient is critically ill.
Care Review
Plan reviewed with: Nurse
[2024-01-31 09:42] LABS: NT-proBNP 12100 pg/ml
--- NOTE | 2024-01-31 10:20 | W.PN.VS ---
Addendum entered and electronically signed by JESSICA Styles 01/31/24 13:30:
Left heel site- VAC placed
Addendum entered and electronically signed by Cash Castillo MD 01/31/24 10:26:
Seen and examined with RODO Jorge. Agree with findings as noted below. Events of yesterday noted. Left heel dressing changed by us. Wound bed is clean. No residual necrosis or purulence. Plan/as discussed and noted below.
Original Note:
Today's Communication / Plan
-
Seen and assessed with Dr. Castillo
Assessment/Plan
-
POD 2 left heel debridement
Plan:
-Holding off on arteriogram until patient stable, creatinine on the rise
-Continue Prevalon boots
-Heel offloading boot for ambulation
-Will place wound VAC today at bedside
Subjective Data
-
Date of Service: January 31, 2024
Patient seen at bedside this a.m. with Dr. Castillo. Patient was intubated overnight for respiratory failure. Heel site dressing stable.
Objective Data
-
Vital Signs
Temp Pulse Resp BP Pulse Ox
97.9 F 46 18 97/49 99
01/31/24 07:30 01/31/24 09:30 01/31/24 09:30 01/31/24 07:42 01/31/24 09:30
Intake and Output
01/30/24 01/31/24 02/01/24
06:59 06:59 06:59
Intake Total 375 / 375 1451.8 / 1590.8 532.6 / 532.6
Output Total 200 / 200 1380 / 1380 395 / 395
Balance 175 / 175 71.8 / 210.8 137.6 / 137.6
Intake:
IV fluids (Total) 375 / 375 1451.8 / 1590.8 502.6 / 502.6
Lr 1,000 ml @ 60 mls/hr IV . 300 / 300
[id number] JAMIA Rx#:[id number]
NSS 75 / 75
Nss 1,000 ml @ 100 mls/hr IV . 1000 / 1100 350 / 350
Q10H JAMIA Rx#:[id number]
fent 95.0 / 105.0 40 / 40
levo 52.6 / 71.4 75.2 / 75.2
cam 192 / 192
prop 112.2 / 122.4 37.4 / 37.4
Amount instilled into GI Tube (
Total)
Delta Sump
Output:
Urine, Street 555 / 555 395 / 395
Urine, Voided 200 / 200 825 / 825
Lab Results
01/31/24 08:29
01/31/24 04:35
Calcium 7.3 mg/dl (8.4-10.2) L 01/31/24 04:35
Phosphorus 4.0 mg/dl (2.5-4.5) 01/31/24 04:35
Magnesium 2.2 mg/dl (1.6-2.3) 01/31/24 04:35
Total Bilirubin 1.3 mg/dl (0.2-1.3) D 01/31/24 04:35
Direct Bilirubin 0.7 mg/dl (0.0-0.4) H 01/31/24 04:35
AST 222 U/L (17-59) H 01/31/24 04:35
ALT 135 U/L (0-50) H 01/31/24 04:35
Alkaline Phosphatase 175 U/L (38-126) H 01/31/24 04:35
Total Protein 6.2 g/dl (6.3-8.2) L 01/31/24 04:35
Albumin 2.6 g/dl (3.5-5.0) L 01/31/24 04:35
Physical Exam
-
AAOx3
Intubated and ventilated
Heart rate 35-55
Abdomen soft
Heel site dry, dressing remained dry overnight, wound bed tissue pink some areas slightly pale, small area of bone exposed
Will VAC today at bedside
--- NOTE | 2024-01-31 10:48 | CON.CAR ---
Consultation
Consultation Request
Date/Time Consultation Requested: 01/31/2024
Date/Time Consultation Performed: 01/31/2024
Requesting Provider: Dr. Marcano
Performing Provider: Dr. Caldera
Reason for Consultation: Hypotension
Medical History
-
History of Present Illness:
73-year-old male with past medical history noted below who was admitted on 01/28/2024 with a nonhealing left heel wound vascular consulted. Patient had progressive lethargy and concern for sepsis. He underwent urgent debridement 01/29/2024 and was
transferred to the ICU. Patient had lactic acidosis up to 5.4 on 01/30/2024 which is down to 1.1 also RAUL acute on chronic with a creatinine up to 2.2 which is down to 2.0 troponin with elevation of 0.1 foot culture positive for Staph aureus
01/29/2024 patient intubated
Past medical history
A-fib
Left heart failure
CAD/history of VT/previous coronary stenting, known occlusion of LAD. Last catheterization 09/2023
rbbb
Hypertension diabetes hyperlipidemia
PAD
TIA 2012
ERICK
Echocardiogram 09/11/2023 estimated ejection fraction 30 to 35% probable anteroapical hypokinesis to akinesis. Aortic sclerosis
ECG atrial fibrillation with slow ventricular response heart rate 55 right bundle branch block possible prior IMI possible prior anterolateral VT
Cardiac catheterization 09/2023 mid LAD chronically occluded 40% lesion in origin of diagonal ramus 30% stenosis small nondominant circumflex diffusely diseased up to's marginal which is small and not amenable to PCI RCA large vessel 50% distal R PDA
Past Medical History
Past Medical History: Other (As above)
Social History
Personal:
Family History
Family History: Other (Penetration unable to provide intubated and sedated)
Allergies / Home Medications
Allergy/AdvReac Type Severity Reaction Status Date / Time
adhesive tape Allergy BLISTERED Verified 01/28/24 12:52
hydromorphone [From Dilaudid] AdvReac Nausea Verified 01/28/24 12:52
oxycodone HCl [From Percocet] AdvReac Nausea Verified 01/28/24 12:52
�Medication �Instructions �Recorded �Confirmed �Type
metformin 1,000 mg tablet 1,000 mg PO BID Diabetes 06/22/12 01/28/24 History
apixaban 5 mg tablet (Eliquis) 5 mg PO BID Blood Clot 06/03/15 01/28/24 History
Prevention/Tx
cholecalciferol (vitamin D3) 25 1,000 units PO DAILY Supplement 06/03/15 01/28/24 History
mcg (1,000 unit) tablet
insulin aspart U-100 100 unit/mL 7 - 20 units SC AC Diabetes 06/03/15 09/10/23 History
subcutaneous solution (Novolog
U-100 Insulin aspart)
Bifidobacterium infantis 4 mg 4 mg PO DAILY probiotic 09/04/23 09/10/23 History
capsule (Align)
albuterol sulfate 90 mcg/actuation 1 puff inhalation Q4HPRN PRN COPD 09/04/23 01/28/24 History
aerosol inhaler
atorvastatin 20 mg tablet 80 mg PO DAILY High Cholesterol 09/04/23 01/28/24 History
dicyclomine 20 mg tablet 20 mg PO DAILYPRN PRN IBS 09/04/23 09/10/23 History
famotidine 20 mg tablet 20 mg PO HS Gastrointestinal Issue 09/04/23 01/28/24 History
furosemide 40 mg tablet 40 mg PO NOON Fluid 09/04/23 01/28/24 History
Retention/Swelling
insulin degludec 100 unit/mL (3 45 unit SC DAILY Diabetes ##0 09/04/23 09/10/23 History
mL) subcutaneous pen (Tresiba
FlexTouch U-100 insulin)
metoprolol succinate 25 mg 25 mg PO DAILY Blood Pressure 09/04/23 01/28/24 History
tablet,extended release 24 hr
multivitamin 1 tab PO NOON Supplement 09/04/23 09/10/23 History
umeclidinium 62.5 mcg-vilanterol 1 inh inhalation R DAILY 09/04/23 01/28/24 History
25 mcg/actuation powdr for Lung/Breathing Issues
inhalation (Anoro Ellipta)
aspirin 81 mg tablet,delayed 81 mg PO DAILY #90 tabs 09/06/23 01/28/24 Rx
release
nystatin 100,000 unit/gram topical 1 applic topical DAILY groin 09/06/23 09/10/23 History
powder
empagliflozin 10 mg tablet 10 mg PO DAILY 30 days #30 tabs 09/14/23 01/28/24 Rx
(Jardiance)
lisinopril 10 mg tablet 10 mg PO NOON 30 days #30 tabs 09/14/23 Rx
spironolactone 25 mg tablet 25 mg PO DAILY 30 days #30 tabs 09/14/23 Rx
Review of Systems
-
Unable to obtain full review of systems at this time due to: Patient Intubation
Physical Exam
Vital Signs
Temp Pulse Resp BP Pulse Ox
97.9 F 55 18 97/49 98
01/31/24 07:30 01/31/24 10:30 01/31/24 10:30 01/31/24 07:42 01/31/24 10:30
Lab Results
01/31/24 08:29
01/31/24 04:35
Troponin I 0.110 ng/ml H* 01/31/24 09:09
Yyb-A-Riepgcmuiig Pept 93758 pg/ml 01/31/24 09:09
Physical Exam
General: Other (Sedated intubated comfortable.)
HEENT: Normocephalic, Anicteric and Other (External ear and nose exam unremarkable ET tube intact)
Respiratory: Other (Vented breath sounds with wheezes)
Cardiac: Irregular Rhythm
Genito-urinary: No Costovertebral Tender
Musculoskeletal: Other (With large heel wound left foot currently being assessed by vascular)
Neuro: Alert
Impression / Plan
-
Hypotension suspected secondary to sepsis
-Wean pressors as tolerated.
-Continue antibiotics
-Consider blood cultures
.
Ischemic cardiomyopathy 35 to 40% by echocardiogram 12/12/2023
-GDMT limited by BP
-Without clear evidence of heart failure on chest x-ray
-Continue to monitor volume status closely
.
Elevated troponin. Etiology unclear could be non-VT troponin related to sepsis possible type II VT related to demand.
-Follow serial troponins
-Continue supportive treatment
-Continue aspirin.
.
Coronary artery disease prior history of VT. Chronically occluded LAD. Results of most recent catheterization as noted above.
-Serial troponins.
.
VDRF. Management directed by pulmonary/critical care
.
Left heel wound. Large left heel wound. Patient said previous debridement debridement vascular following
.
RAUL - acute on chronic . 2.0 down form 2.2
Data Reviewed
-
EKG: Report Reviewed by me
Radiology: Report Reviewed by me
Medical Tests (Nuc Med, Echo etc): Report Reviewed by me
Labs: Labs Reviewed by me and Discussed with Nurse
--- NOTE | 2024-01-31 10:55 | CM ---
Patient seen at bedside in ICU. Patient now intubated and pending wound vac placement. Patient previous plan had been to go home with Wound Vac and [facility]. CM will continue to follow for discharge planning needs.
Plan; uncertain at this time pending medical treatment plan.
--- NOTE | 2024-01-31 11:07 | W.PN.NEPH.PH ---
Today's Communication / Plan
-
d/c IVF and ok for lasix 40mg
Assessment/Plan
-
Impression:
RAUL
CKD 3b (1.6)
Metabolic acidosis
Left plantar foot ulceration with gangrenous changes s/p debridement
Ischemic cardiomyopathy
History of hypertension
History of diabetes
Profound peripheral vascular disease
Diabetes
Plan:
RAUL:in setting of left foot infection
old UA bland, keep sosa -non oliguric
cr relatively stable now, however had contrast exposure on 01/29
cont pressors to maintain MAP >65
given h/o of CHF ok to stop IVF and lasix as needed
CXR noted this am, BNP elevated
Holding Jardiance, metformin, BB, spironolactone and KARL inhibitor at this time
repeat labs later today
monitor met acidosis, L acid improved, add po bicarb once entreral route established
follow daily wts
vent management per ICU
no angiogram planned currently, planning wound vac per vasc
dose meds renally
d/w ICU and nursing
-
-
Date of Service: January 31, 2024
CC / HPI / ROS
-
Chief Complaint:
RAUL with CKD
History of Present Illness:
pt was unresponsive yesterday and required to be intubated
CTA head and neck, chest
cr peak at 2.2, this am 2
non oliguric with sosa
no fever, sodium low 132, bicarb 17
ABG noted ph better 7.38, pCo2 30
gina at times, afib
Review of Systems:
intubated and sedated, Fio2 40%
Labs
-
Labs:
WBC Cancelled 01/31/24 08:29
RBC Cancelled 01/31/24 08:29
Hgb Cancelled 01/31/24 08:29
Hct Cancelled 01/31/24 08:29
Plt Count Cancelled 01/31/24 08:29
Sodium 132 mmol/L (135-145) L 01/31/24 04:35
Potassium 4.4 mmol/L (3.5-5.1) 01/31/24 04:35
Chloride 101 mmol/L (98-107) 01/31/24 04:35
Carbon Dioxide 17 mmol/L (22-30) L 01/31/24 04:35
BUN 63 mg/dl (9-20) H 01/31/24 04:35
Creatinine 2.0 mg/dL (0.7-1.3) H 01/31/24 04:35
eGFR 34.16 01/31/24 04:35
Glucose 158 mg/dl (70-99) H 01/31/24 04:35
Calcium 7.3 mg/dl (8.4-10.2) L 01/31/24 04:35
Phosphorus 4.0 mg/dl (2.5-4.5) 01/31/24 04:35
Rgr-C-Sixxmnxunuk Pept 90755 pg/ml 01/31/24 09:09
Albumin 2.6 g/dl (3.5-5.0) L 01/31/24 04:35
Physical Exam
-
Vital Signs:
Vital Signs
Temp Pulse Resp BP Pulse Ox
97.9 F 55 18 97/49 98
01/31/24 07:30 01/31/24 10:30 01/31/24 10:30 01/31/24 07:42 01/31/24 10:30
Cardiovascular:: Regular rate and rhythm
Respiratory:: Bilateral: CTA (decreased)
Lung Excursion:: Abnormal
Abdomen:: Nontender and Soft
Extremity Edema:: None: Bilateral: (trace)
Sosa Catheter: Yes
Other Findings::
left heel large open wound with granulation and no drainage
[2024-01-31] MEDS: LASIX 40 MG IV (11:24)
--- NOTE | 2024-01-31 11:43 | PTCARENOTE ---
1st set BC obtained, VAT here to place PICC, med with lasix, animated with procedure, med with fentanyl as ordered and increased gtts for tolerance. family here, updates given, wound VAC placed.
[2024-01-31] MEDS: MERREM 500 MG IV ×2 (12:17→17:49)
[2024-01-31 12:23] LABS: Glucose - Point of Care 178 mg/dl (70-99)
[2024-01-31] MEDS: HEPARIN 25000 UNITS/250 ML IV (12:39)
--- NOTE | 2024-01-31 14:16 | VATNOTE ---
L PICC line retracted 3 cm per radiologist's report for good tip positioning. PCN aware OK to use. Advised PCN needed to remove any L sided IVs and change any IV tubing on infusions being moved to the PICC line.
[2024-01-31 16:18] LABS: Troponin I 0.099 ng/ml
[2024-01-31 16:24] LABS: Blood Urea Nitrogen 61 mg/dl (9-20); Calcium 7.7 mg/dl (8.4-10.2); Carbon Dioxide 17 mmol/L (22-30); Chloride 103 mmol/L (98-107); Estimated Creatinine Clearance 38 ml/min; Glucose 175 mg/dl (70-99); Potassium 4.1 mmol/L (3.5-5.1); Sodium 134 mmol/L (135-145); eGFR 34.16
--- NOTE | 2024-01-31 16:26 | PTCARENOTE ---
turned, positioned for comfort. tube feeds infusing per order. pale yellow via sosa. lines and gtts with new tubing, moved to new PICC after repositioning by VAT. oral care, tolerating. wound VAC maintained, good suction/seal. more family
this pm, updated.
--- NOTE | 2024-01-31 17:44 | PTCARENOTE ---
turned, positioned, boosted, became agitated, required increased propofol. did nod yes/no appropriate, yes I can hear you, no I'm not having pain. then non redirectable. agitated, pulling at restraints, art line, some PICC oozing noted under
dressing, wrapped in chux. after several minutes, did settle down, less agitated on 30 mcg/kg/min propofol
[2024-01-31] MEDS: LIPITOR 80 MG PO (17:48)
[2024-01-31] MEDS: TYLENOL 650 MG PO (17:48)
[2024-01-31 18:02] LABS: Glucose - Point of Care 162 mg/dl (70-99)
--- NOTE | 2024-01-31 18:05 | PTCARENOTE ---
I/O collected, 1800 meds given, calm at present without stimulation
[2024-01-31 19:15] LABS: APTT 107.8 Sec (23.4-35.0)
[2024-01-31] MEDS: SODIUM BICARBONATE 650 MG TUBE (19:38)
--- NOTE | 2024-01-31 19:45 | PTCARENOTE ---
received report, dual RN bedside med rec, pt drowsy arouse to deep pain, B/L wrist restraints, pupils 2, AFIB on the monitor gina 55, + radials, doppler pedals, R radial A-line zeroed, lungs coarse and diminished in the bases, ETT #8 24cm @ lip on
L, AC 18/500/40/5, OGT 59cm TF 20ml/25ml H2O flush, BSx4 hypoactive round obese, sosa clear yellow output, L heel wound vac maintained, 20G YUDITH, 22G RW, DL PICC L, prop, fent, levo, hep gtts titrated per worklist, PTT sent @ change of shift,
otherwise refer to documentation.
[2024-01-31 23:32] LABS: Glucose - Point of Care 196 mg/dl (70-99)
[2024-01-31] MEDS: NOVOLOG FLEXPEN-HIGH RESISTANCE 2 UNITS SC (23:38)
--- NOTE | 2024-02-01 00:21 | PTCARENOTE ---
systems reviewed, gtts titrated per worklist, TF advanced to 30ml/25ml H2O flush, flexpen changed to high resistance, glucose 196 2 units given otherwise refer to documentation
[2024-02-01] MEDS: LEVOPHED 250 IV ×2 (00:43→09:38)
[2024-02-01 01:21] LABS: APTT 125.7 Sec (23.4-35.0)
[2024-02-01] MEDS: SUBLIMAZE 100 IV ×2 (01:50→11:34)
[2024-02-01] MEDS: STERILE WATER FOR INJECTION 10 ML IV ×2 (01:53→09:40)
[2024-02-01] MEDS: MERREM 500 MG IV ×2 (01:53→09:40)
[2024-02-01 03:09] VITALS: BMI 39.1
[2024-02-01 03:27] LABS: % Basophils 0.1 % (0-2); % Eosinophils 2.5 % (0-6); % Immature Granulocytes 0.9 % (0-0.5); % Lymphocytes 4.2 % (20.5-51.1); % Monocytes 5.5 % (1.7-9.3); % Neutrophils 86.8 % (42.2-75.2); Absolute Eosinophils 0.4 10^3/uL (0-0.7); Absolute Immature Granulocytes 0.1 10^3/uL (0-0.05); Absolute Lymphocytes 0.6 10^3/uL (1.2-3.4); Absolute Monocytes 0.8 10^3/uL (0.1-0.6); Absolute Neutrophils 12.7 10^3/uL (1.4-6.5); Hematocrit 32.5 % (39.0-52.0); Hemoglobin 10.2 g/dL (13.0-18.0); Mean Corp Hgb Conc. 31.4 g/dL (33.0-37.0); Mean Corpuscular Hgb 26.1 pg (27.0-31.0); Mean Corpuscular Volume 83.1 fL (80.0-94.0); Nucleated Red Blood Cells % 0.8 % (-); Platelet Count 361 10^3/uL (130-400); Red Blood Cell Count 3.91 10^6/uL (4.70-6.10); Red Cell Dist. Width 19.6 % (11.5-14.5); White Blood Cell Count 14.6 10^3/uL (4.8-10.8)
--- NOTE | 2024-02-01 04:00 | PTCARENOTE ---
systems reviewed, gtts titrated per worklist, labs sent, otherwise refer to documentation
[2024-02-01 04:38] LABS: Blood Urea Nitrogen 58 mg/dl (9-20); Calcium 7.8 mg/dl (8.4-10.2); Carbon Dioxide 17 mmol/L (22-30); Chloride 105 mmol/L (98-107); Estimated Creatinine Clearance 39 ml/min; Glucose 182 mg/dl (70-99); Magnesium 2.2 mg/dl (1.6-2.3); Potassium 3.8 mmol/L (3.5-5.1); Sodium 139 mmol/L (135-145); eGFR 36.33
[2024-02-01 04:40] LABS: Vancomycin Random 14.6 ug/ml
[2024-02-01] MEDS: NOVOLOG FLEXPEN-HIGH RESISTANCE 2 UNITS SC (05:19)
[2024-02-01] MEDS: DIPRIVAN 100 IV ×4 (05:20→19:36)
[2024-02-01 05:29] LABS: Glucose - Point of Care 195 mg/dl (70-99)
--- NOTE | 2024-02-01 06:14 | W.PN.INTV ---
Today's Communication / Plan
Recommendations
Net neg -1L s/p lasix, will add IV daily dose
SBT trials today, wean sedation
Updated family at bedside regarding PAP noncompliance
Vasc following for LLE wound
Abx continued
Can likely transition IV heparin to PO Eliquis
Assessment
-
Patient is a 73-year-old male with previous history of hypertension, hyperlipidemia, CHF admitted to on 01/28/2024 for nonhealing left heel wound. He notes that he had a blister that was broken up and on his left heel and was prescribed a
topical antibiotic which did not improve his symptoms. Vascular was consulted and due to progressive lethargy, there is concern for ongoing sepsis. Underwent urgent debridement of heel on 01/29/2024 and transferred postoperatively to ICU.
Unresponsiveness, acute hypoxic respiratory failure status post intubation 01/30/24
Acute on chronic congestive heart failure exacerbation with reduced ejection fraction
Wet gangrene of the left heel status post urgent excisional debridement through bone with lavage and irrigation 01/29/2024
Nonhealing left heel wound
Leukocytosis
RAUL, creatinine 1.9 (BL 1.2-1.3)
Hyponatremia, mild
Hyperglycemia
Conditions present prior to admission
History of heart failure, ICM worsened LVEF at 30-35% - TTE 09/11/23
Hypertension
Hyperlipidemia
Morbid obesity, BMI 40.4
Left anterior fascicular block, chronic
History of persistent atrial fibrillation on Eliquis
Coronary disease with history of KS 20+ years ago
History of TIA
Severe sleep apnea, HST AHI 61/78%, failed CPAP 2021
Diabetes
Chronic DJD, back pain
[id number], quit
Chronic cough, COPD/RLD on PFTs, follows at [facility]-Dr Montiel/Chanelle
PAD
Plan
Sedation: Fentanyl, propofol
RASS goal -2
CT head and neck obtained, carotid disease noted
Likely acute on chronic heart failure exacerbation
Troponin elevated, consult cards
Cardiac history as noted above
Transthoracic echo from 09/11/2023 shows declined LVEF at 30-35% down from 40% in 2021
Patient follows cardiology (Kim)
He underwent LHC and RHC on 09/13/2023 showed reduced CI and low PCWP with slightly elevated PADP with mild pHTN (mPAP: 23mmHg)- no additional diuresis
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
Rate control with goal HR<110bpm
Replete K>4, Mg>2
Daily lasix, received 1 dose and net neg -1L
Unresponsiveness status post intubation
COPD, RLD, morbid obesity, untreated severe ERICK noted
He is high risk for repeated procedures/anesthesia
Resume home inhalers
CT chest without PE, demonstrates edema/effusion
SBT today
If no further interventions, can advance diet as tolerated
GI ppx if indicated--on Pepcid 20 qHS
Aspiration precautions
Non healing would of LLE, on abx for coverage, concern for sepsis
s/p debridement 01/29/24, tissue culture sent
Blood culture negative
Complete course
Creat elevated, monitor function/IOs
If ongoing elevation noted, consult renal
Avoid any nephrotoxic agents
Diuresis daily added
CBC stable
DVT ppx: Eliquis
PT/OT when able
IDDM, resume home meds
accu checks AC qHS
SS coverage
Diagnostic Data
Chest X-Ray: 01/28/24- No acute cardiopulmonary process.
09/14/23- No active cardiopulmonary disease.
CT Scan: CHEST 10/18/22- Stable small perifissural pulmonary nodules along the left major fissure. Stable mild small reticulonodular interstitial opacities in the bilateral upper lobes, right greater than left.
CAP 05/04/22- No acute pathology of the chest, abdomen and pelvis identified. Few left upper and lower lobe pulmonary nodules. Bilateral small renal cysts. Bilateral too small to characterize hypodense renal lesions, likely benign cysts. Moderate
fecal material throughout the colon. Mild diverticulosis.
Echo: 12/12/23- Moderately reduced left ventricular systolic function. Estimated left ventricular ejection fraction is 35-40% . Wall motion analysis is limited due to image quality. Mild mitral regurgitation.
Compared to the previous report 12/12/2023 findings are similar no significant change previously estimated ejection fraction 35%
PFT's: 03/29/23 FEV1 1.91 L 77%, FVC 2.57 L 75%, ratio 74. TLC 3.63 L 59%, DLCO 60%--moderately severe restriction, mild diffusion impairment
Reports and relevant images were personally reviewed.
-----
Critical Care time 35 mins -- The patient is admitted for acute critical illness for the treatment of vital organ failure and/or prevention of further life-threatening conditions. Total care includes time spent in review of history, physical exam,
medications, hemodynamic/ventilator parameters, laboratory data, imaging and discussion with house staff, pharmacy, respiratory therapy, co founder, and nursing.
Subjective Dataa
Subjective Data
Date of Service:
Date of Service: February 01, 2024
Chief Complaint: [employer] Follow Up
Subjective:
Given one dose of lasix, -1L overnight
Remains intubated, no events
Objective Data
Data Reviewed
Vital Signs / I&O / Oxygen:
Vital Signs
Temp Pulse Resp BP Pulse Ox
96.4 F L 58 18 110/59 98
02/01/24 03:24 02/01/24 06:00 02/01/24 06:00 01/31/24 19:55 02/01/24 06:00
Intake and Output
01/30/24 01/31/24 02/01/24
06:59 06:59 06:59
Intake Total 375 / 375 1451.8 / 1590.8 2459.4 / 2459.4
Output Total 200 / 200 1380 / 1380 3580 / 3580
Balance 175 / 175 71.8 / 210.8 -1120.6 / -1120.6
SaO2 [A/C] 98
SaO2 98
Nasal Cannula flow liters per 6
minute
Physical Exam
General: Comfortable and Other (Critically ill)
HEENT: Normocephalic, Anicteric and Moist Mucous Membranes
Cardiovascular: S1-S2 and Regular Rhythm
Respiratory: Crackles, Non-Labored Respirations, ET Tube and Other (Decreased breath sounds on the right)
GI: Soft, Non Distended and Non Tender
Neurology: Lethargic (Sedated/intubated) and Non Verbal
Skin: Warm, Dry and Good Color
Labs/Micro/Reports
Lab Data
02/01/24 03:04
02/01/24 03:04
Laboratory Results
01/31/24 01/31/24 02/01/24
08:53 18:56 00:55
PT 27.4 H
INR 2.50
APTT 43.5 H 107.8 H 125.7 H
Microbiology
01/28/24 12:25 Blood/Venous Blood Culture - Preliminary
No Growth in 72 hours- Final report to follow
01/29/24 15:30 Foot - Left Tissue Culture - Preliminary
Staphylococcus aureus
01/29/24 15:30 Foot - Left Gram Stain - Preliminary
01/28/24 14:04 Nose MRSA Screen - Final
No Methicillin Resistant Staphylococcus aureus isolated.
[2024-02-01] MEDS: DESENEX/MITRAZOL/ZEASORB 1 APPLIC TOPICAL ×2 (07:44→19:36)
[2024-02-01] MEDS: TYLENOL 650 MG PO (07:44)
[2024-02-01] MEDS: SODIUM BICARBONATE 650 MG TUBE ×2 (07:44→19:36)
[2024-02-01] MEDS: PROTONIX IV 40 MG IV (07:45)
[2024-02-01] MEDS: NSS (PRESERVATIVE FREE) 10 ML IV (07:45)
--- NOTE | 2024-02-01 07:46 | W.PN.HOSP.TC ---
Today's Communication/Plan
-
see A/P
Assessment / Plan
Assessment / Plan
HP: Patient is 73 years old male with multiple comorbidities presented to the hospital with sepsis due to left foot plantar infected ulcer 2/2 diabetic foot ulcer and peripheral vascular disease.
A/P:
# Sepsis POA due to infected left plantar foot wound/ulcer, in setting of diabetes foot ulcer and peripheral vascular disease:
X-ray of the foot showed no fractures or erosions. Some osteoarthritic changes interphalangeal and first metatarsophalangeal joints. Dorsal talus osteophyte. No clear evidence of osteo.
s/p Left heel extensive sharp excisional debridement 6cm x 6cm x 1cm by Vascular on 01/28
tissue culture growing staph, follow S/S
Continue broad-spectrum antibiotics, changed IV Cefepime/vancomycin to Merrem/vancomycin
ID on board
There is NO further plan now for staged revascularization procedure (due to RAUL)
# Unclear cause of shock 01/29, possibly septic vs cardiogenic
# Acute on chronic hypoxic respiratory failure, resulting in intubation 01/29
Cont Levophed support, wean as tolerated
cont mechanical ventilation per Sample Builder, pt on 2L NC HS DIANETIC COUNSELOR
CT PE negative for PE, noted large right lower lobe consolidation and moderate right pleural effusion. Left lower lobe subsegmental atelectasis and small left pleural effusion. Groundglass opacity and mild septal thickening suggesting mild to
moderate pulmonary edema.
Pulm/Sample Builder on board
# Peripheral vascular disease
# S/P LLE arteriogram and stent to SFA and angioplasty to PT per vascular surgery in September this year.
Cont anticoagulation with aspirin, and statins.
Replacing DIANETIC COUNSELOR Eliquis with heparin drip. Ok with Vascular.
Vascular on board
# RAUL, likely prerenal related to sepsis POA:
Creatinine 1.9 today from baseline 1.2
s/p IVF RL
Started IV lasix 40 mg daily for pulm edema
Avoid nephrotoxics, holding DIANETIC COUNSELOR Lasix/lisinopril/Aldactone
Cont bladder scans
Monitor renal function
Renal on board
# CAD
Continue current anti-ischemic regimen including aspirin, Lipitor
# Permanent atrial fibrillation:
Rate control Toprol on hold with shock
Replaced DIANETIC COUNSELOR Eliquis with heparin drip
# Chronic HFrEF:
Reviewed last echocardiogram and EF 30 to 35% on September 2023
Monitor volume status closely
Dry weight is around 111 kg
Started IV lasix 40 mg daily for pulm edema
# Hypertension
currently in shock
# Hyperlipidemia
# TIA
Continue anti-ischemic regimen
# Diabetes mellitus type 2
restarted insulin with Lantus 10 units daily (DIANETIC COUNSELOR 45 units daily)
Insulin sliding scale
A1c 6.4%
# Asthma
Respiratory status stable
Bronchodilators as needed
Continue to monitor
# Morbid Obesity
BMI 40
DVT prophylaxis: DIANETIC COUNSELOR Eliquis replaced with heparin drip. Ok with Sample Builder and Vascular
CODE STATUS: Full code
DW RN
Updated on the phone. Extensive discussion.
CC time spent 41 min
Anticipated Discharge: > 48 hours
Subjective/Interval History
-
Date of Service: February 01, 2024
Objective Data
-
Labs:
Laboratory Results
02/01/24 02/01/24 02/01/24
00:55 03:04 08:00
WBC 14.6 H
Hgb 10.2 L
Hct 32.5 L
Plt Count 361
APTT 125.7 H Pending
Sodium 139
Potassium 3.8
Chloride 105
Carbon Dioxide 17 L
BUN 58 H
Creatinine 1.9 H
Glucose 182 H
Calcium 7.8 L
Vital Signs:
Vital Signs
Temp Pulse Resp BP Pulse Ox
36.6 C 58 18 110/59 98
02/01/24 07:18 02/01/24 06:00 02/01/24 06:00 01/31/24 19:55 02/01/24 06:00
I&O
01/31/24 02/01/24 02/02/24
06:59 06:59 06:59
Intake Total 1451.8 / 1590.8 2459.4 / 2459.4
Output Total 1380 / 1380 3580 / 3580
Balance 71.8 / 210.8 -1120.6 / -1120.6
Review of Systems
-
Unable to obtain full review of systems at this time due to: Patient Intubation
Physical Exam
-
General: Well Developed, Well Nourished, Comfortable, Respiratory Distress, Intubated and Appears Chronically Ill
HEENT: Normocephalic, Atraumatic, Nose Appears Normal, Ears Appear Normal and Oxygen (vent)
Respiratory: Clear to Auscultation and Non Labored Respirations; Negative Accessory Resp Muscle Use
Cardiac: Regular Rhythm and S1/S2
GI: Soft, Nontender, Nondistended and Normal Bowel Sounds
Musculoskeletal: Other (L foot in wound dressing , see wound care note)
Skin: Warm and Dry
Neuro: Sedated
Psych: Calm
Data Reviewed
-
Diagnostic Radiology: Image personally visualized and interpreted and Report Reviewed by me
CT Scan: Report Reviewed by me
Labs: Labs Reviewed by me
[2024-02-01 07:55] VITALS: BP 103/51
--- NOTE | 2024-02-01 08:00 | PTCARENOTE ---
recd handoff at bedside 0715, assessed as noted. calm on present sedation, ETT to vent tolerating current settings. see documentation, turned and positioned for comfort. not interactive at present but responds to stimuli and care.
[2024-02-01] MEDS: LOW STRENGTH ASPIRIN 81 MG TUBE (08:15)
[2024-02-01] MEDS: LANTUS 0.1 UNITS SC (08:15)
[2024-02-01] MEDS: LASIX 40 MG IV (08:16)
[2024-02-01 08:18] LABS: Glucose - Point of Care 193 mg/dl (70-99)
[2024-02-01] MEDS: RISPERDAL 0.25 MG PO (09:29)
--- NOTE | 2024-02-01 10:22 | W.PN.ID1 ---
Date of Service
Date of Service: February 01, 2024
Today's Communication
- deescalation to unasyn
Risks of treatment failure for calcaneal osteomyelitis relatively high, nevertheless agree with attempts at foot salvage which impacts quality of life. Pleased that Dm2 under control, patient is not an active smoker and has had revascularization.
Patient is critically ill.
Assessment / Plan
Left heel ulcer with wet gangrene s/p debridement to bone
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
RAUL on CKD
Shock liver
AMS
Multisystem organ failure - improving
Class III obesity
- 01/27 single blood culture NGTD; 01/30 blood cultures x2 no growth to date
- 01/28 tissue culture with MSSA, no anaerobic culture done
- note nephrology concern for possible need for HD - will avoid nephrotoxic medications/medication combinations
- deescalation to unasyn
Risks of treatment failure for calcaneal osteomyelitis relatively high, nevertheless agree with attempts at foot salvage which impacts quality of life. Pleased that Dm2 under control, patient is not an active smoker and has had revascularization.
Patient is critically ill.
Chief Complaint
-: Other (wet gangrene s/p debridement)
Subjective / Review of Systems
afebrile though with intermittent mild hypothermia
remains on pressors - without significant change in dose
no events overnight
Vital Signs / Physical Exam
Vital Signs
Vital Signs
Temp Pulse Resp BP Pulse Ox
97.9 F 57 18 113/44 99
02/01/24 07:18 02/01/24 09:30 02/01/24 09:30 02/01/24 08:16 02/01/24 09:30
Physical Exam
Constitutional: No Acute Distress
Cardiovascular: Regular Rate and S1/S2; Negative Murmur or Rub
Pulmonary: Clear and Symmetric; Negative Wheezes or Rales
Gastrointestinal: Soft, Non Tender, Non Distended and Normal Bowel Sounds
Skin: Warm and Dry; Negative Rash or Jaundice
Objective Data
Lab Data
Lab Results
02/01/24 03:04
02/01/24 03:04
ESR 95 mm/hour (0-20) H 01/28/24 07:14
PT 27.4 Sec (11.4-14.6) H 01/31/24 08:53
INR 2.50 01/31/24 08:53
APTT 120.0 Sec (23.4-35.0) H 02/01/24 08:05
Estimated Creat Clear 39 ml/min 02/01/24 03:04
Lactic Acid 1.1 mmol/L (0.7-2.0) 01/31/24 04:35
Total Bilirubin 1.3 mg/dl (0.2-1.3) D 01/31/24 04:35
AST 222 U/L (17-59) H 01/31/24 04:35
ALT 135 U/L (0-50) H 01/31/24 04:35
Alkaline Phosphatase 175 U/L (38-126) H 01/31/24 04:35
C-Reactive Protein > 270.00 mg/L (0.0-10.00) H 01/28/24 07:41
Most recent labs reviewed.
Micro Results:
01/29/24 15:30 Tissue Culture - Final
Foot - Left S aureus-Methicillin Sensitive
Gram Stain - Final
01/28/24 12:25 Blood Culture - Preliminary
Blood/Venous No Growth in 72 hours- Final report to follow
01/31/24 12:12 Blood Culture - Pending
Blood/Venous
01/31/24 11:15 Blood Culture - Pending
Blood/Venous
01/28/24 14:04 MRSA Screen - Final
Nose No Methicillin Resistant Staphylococcus aureus isolated.
[2024-02-01 10:37] VITALS: BP_SYST 118
[2024-02-01 10:43] VITALS: BP_SYST 118
--- NOTE | 2024-02-01 10:45 | W.PN.NEPH.PH ---
Today's Communication / Plan
-
follow labs on lasix
cont po bicarb
Assessment/Plan
-
Impression:
RAUL
CKD 3b (1.6)
Metabolic acidosis
Left plantar foot ulceration with gangrenous changes s/p debridement
Ischemic cardiomyopathy
History of hypertension
History of diabetes
Profound peripheral vascular disease
Diabetes
Plan:
RAUL:in setting of left foot infection , however had contrast exposure on 01/29
old UA bland, keep sosa -non oliguric
cr slightly improving to 1.9,
weaning pressors to maintain MAP >65
wt decreasing with lasix
Holding Jardiance, metformin, BB, spironolactone and KARL inhibitor at this time
monitor met acidosis,cont po bicarb
On TF, tolerating
follow daily wts
vent management per ICU
no angiogram planned currently
dose meds renally
d/w nursing and family
-
-
Date of Service: February 01, 2024
CC / HPI / ROS
-
Chief Complaint:
RAUL with CKD
History of Present Illness:
pt was unresponsive yesterday and required to be intubated 01/29
cr peak at 2.2, this am 1.9
non oliguric with sosa
no fever, sodium normal, bicarb 17
Review of Systems:
intubated and sedated, Fio2 40%
wt decreasing
Labs
-
Labs:
WBC 14.6 10^3/uL (4.8-10.8) H 02/01/24 03:04
RBC 3.91 10^6/uL (4.70-6.10) L 02/01/24 03:04
Hgb 10.2 g/dL (13.0-18.0) L 02/01/24 03:04
Hct 32.5 % (39.0-52.0) L 02/01/24 03:04
Plt Count 361 10^3/uL (130-400) 02/01/24 03:04
Sodium 139 mmol/L (135-145) 02/01/24 03:04
Potassium 3.8 mmol/L (3.5-5.1) 02/01/24 03:04
Chloride 105 mmol/L (98-107) 02/01/24 03:04
Carbon Dioxide 17 mmol/L (22-30) L 02/01/24 03:04
BUN 58 mg/dl (9-20) H 02/01/24 03:04
Creatinine 1.9 mg/dL (0.7-1.3) H 02/01/24 03:04
eGFR 36.33 02/01/24 03:04
Glucose 182 mg/dl (70-99) H 02/01/24 03:04
Calcium 7.8 mg/dl (8.4-10.2) L 02/01/24 03:04
Phosphorus 4.0 mg/dl (2.5-4.5) 01/31/24 04:35
Eda-H-Fdxsmtvnwqz Pept 81057 pg/ml 01/31/24 09:09
Albumin 2.6 g/dl (3.5-5.0) L 01/31/24 04:35
Physical Exam
-
Vital Signs:
Vital Signs
Temp Pulse Resp BP Pulse Ox
98.4 F 69 18 113/44 100
02/01/24 11:25 02/01/24 12:00 02/01/24 12:00 02/01/24 08:16 02/01/24 12:00
Cardiovascular:: Regular rate and rhythm
Respiratory:: Bilateral: CTA (decreased anteriorly)
Lung Excursion:: Abnormal
Abdomen:: Nontender and Soft
Extremity Edema:: +1: Bilateral: (trace)
Sosa Catheter: Yes
--- NOTE | 2024-02-01 11:01 | PTCARENOTE ---
small bore feeding tube reported in esophagus removed. new SBFT placed, pending xray, stylet remains in. placed on cp/ps wean 07/09/39, tolerated approx 10 min with periods awake and agitation, others calm except for HR bursting from baseline 100 to
152, hovering and remaining 135-140. discussed with Dr. Greer, returned to previous settings. did wean on 50 mcg/hr fentanyl, 10 mcg/kg/min propofol. family in and out, updated.
[2024-02-01] MEDS: UNASYN IV ×2 (11:35→17:28)
[2024-02-01] MEDS: MIRALAX TUBE (11:43)
[2024-02-01] MEDS: NOVOLOG FLEXPEN-HIGH RESISTANCE 4 UNITS SC (11:44)
--- NOTE | 2024-02-01 11:48 | W.PN.CD ---
Today's Communication / Plan
-
would continue with lasix although seems close to euvolemic
?thoracentesis of right pleural effusion given adjacent Rt sided consolidation on CT
continue to wean pressors as able
Impression / Plan
-
VDRF:
-pulm following
-?RT consolidation/pleural effusion, lt atelectasis
-diuresis to assess response
-?need for diagnostic tap of right pleural effusion
Hypotension suspected secondary to sepsis
-Wean pressors as tolerated.---still requiring levophed at 5
-Continue antibiotics
-ID following
-
Ischemic cardiomyopathy 35 to 40% by echocardiogram 12/12/2023
-acute on chronic HFrEF--wt now below prior 'dry'wt
-GDMT limited by BP
-diuresis overnight with success additional dose given of IV lasix today
-Continue to monitor volume status closely
Atrial fibrillation at times elevated heart rates but requiring vasopressor, will continue to monitor.
Continue heparin drip, typically on Eliquis. Resume when able.
.
non-NH troponin elevated related to septic shock
-Continue supportive treatment
-Continue aspirin.
.
Coronary artery disease prior history of NH. Chronically occluded LAD. Results of most recent catheterization as noted above.
.
VDRF. Management directed by pulmonary/critical care
.
Left heel ulcer with wet gangrene s/p debridement to bone/OM
Patient said previous debridement debridement vascular following
ID following
.
RAUL - acute on chronic . improving
PAD: On aspirin with his Eliquis
Subjective:
He is intubated and sedated
Overall he remains critically ill, total time in his care was 32 minutes.
Physical Exam
Vital Signs/Labs
Vital Signs
Temp Pulse Resp BP Pulse Ox
98.4 F 107 15 113/44 95
02/01/24 11:25 02/01/24 10:43 02/01/24 10:43 02/01/24 08:16 02/01/24 10:48
01/31/24 02/01/24 02/02/24
06:59 06:59 06:59
Actual Weight 113 kg 109.7 kg
02/01/24 03:04
02/01/24 03:04
PT 27.4 Sec (11.4-14.6) H 01/31/24 08:53
INR 2.50 01/31/24 08:53
APTT 120.0 Sec (23.4-35.0) H 02/01/24 08:05
Magnesium 2.2 mg/dl (1.6-2.3) 02/01/24 03:04
Triglycerides 140 mg/dl (10-149) 01/30/24 20:24
01/31/24
09:09
Gef-J-Eyktvdyhyph Pept [id number]
LAB Results
01/31/24 01/31/24 01/31/24
09:09 15:44 21:24
Troponin I 0.110 H* 0.099 H* 0.090 H*
Physical Exam
Constitutional: No acute distress and Comfortable (Sedated)
Cardiovascular: Systolic murmur absent, Diastolic murmur absent, Rhythm/rate is irregular and Pedal edema present
Respiratory: Respiratory effort normal (Ventilator sounds noted)
GI: Soft
Data Reviewed
-
Date of Service: February 01, 2024
Medical Decision Making: Review of Case with other Provider (Discussed with Dr. Greer, akira, and Erasto--- consider diagnostic thoracentesis of right-sided pleural effusion)
EKG: Other (Atrial fibrillation with controlled ventricular response)
[2024-02-01 11:53] LABS: Glucose - Point of Care 222 mg/dl (70-99)
--- NOTE | 2024-02-01 12:40 | PTCARENOTE ---
feeding tube in good placement at 70 cm, TF restarted.
[2024-02-01 15:47] LABS: APTT 147.3 Sec (23.4-35.0)
[2024-02-01] MEDS: LIPITOR 80 MG PO (17:33)
[2024-02-01] MEDS: NOVOLOG FLEXPEN-HIGH RESISTANCE 7 UNITS SC (17:36)
[2024-02-01 17:44] LABS: Glucose - Point of Care 287 mg/dl (70-99)
--- NOTE | 2024-02-01 18:28 | PTCARENOTE ---
glucose noted, covered, updates to Dr. Greer, will keep current plan for now. repositioned. comfortable.
[2024-02-01 23:51] LABS: APTT 91.2 Sec (23.4-35.0)
[2024-02-02] VITALS (12 sets, daily range): BP systolic 98–124; BP diastolic 41–90; BMI 39.3
[2024-02-02] MEDS: SUBLIMAZE 100 IV ×2 (00:11→09:56)
[2024-02-02] MEDS: UNASYN IV ×4 (00:11→18:10)
[2024-02-02] MEDS: NOVOLOG FLEXPEN 5 UNITS SC ×4 (00:19→18:12)
[2024-02-02] MEDS: NOVOLOG FLEXPEN-HIGH RESISTANCE 10 UNITS SC (00:19)
[2024-02-02 00:27] LABS: Glucose - Point of Care 301 mg/dl (70-99)
[2024-02-02] MEDS: DIPRIVAN 100 IV ×2 (02:11→08:09)
--- NOTE | 2024-02-02 03:33 | PTCARENOTE ---
Pt remains intubated and sedated, propofol decreased. Pt opens eyes to loud verbal stimuli at times, does not follow commands. Nods y/n at times. Afib, 60s. DP pulses present w/ doppler. #8 ETT @ 25cm at the lip, repositioned to the R at 20:00.
Breath sounds coarse t/o, diminished at the bases. DHT in place, TF infusing at goal--no residual. Street in place, clear yellow urine. R heel with wound vac in place, continuous suction @ 125, seal maintained. R radial liana zeroed and transduced.
[2024-02-02 04:29] LABS: B.E. -0.6 mmol/L; HCO3 22.8 mmol/L (21-28); PCO2 32 mmHg (35-48); PO2 124 mmHg (83-108); pH 7.46 (7.35-7.45)
[2024-02-02 04:42] LABS: % Basophils 0.2 % (0-2); % Eosinophils 2.8 % (0-6); % Immature Granulocytes 1.5 % (0-0.5); % Lymphocytes 8.3 % (20.5-51.1); % Monocytes 6.6 % (1.7-9.3); % Neutrophils 80.6 % (42.2-75.2); Absolute Eosinophils 0.4 10^3/uL (0-0.7); Absolute Immature Granulocytes 0.2 10^3/uL (0-0.05); Absolute Lymphocytes 1.1 10^3/uL (1.2-3.4); Absolute Monocytes 0.9 10^3/uL (0.1-0.6); Absolute Neutrophils 10.5 10^3/uL (1.4-6.5); Hematocrit 29.9 % (39.0-52.0); Hemoglobin 9.7 g/dL (13.0-18.0); Mean Corp Hgb Conc. 32.4 g/dL (33.0-37.0); Mean Corpuscular Hgb 26.3 pg (27.0-31.0); Mean Platelet Volume 10.4 fL (7.4-10.4); Nucleated Red Blood Cells % 0.8 % (-); Platelet Count 340 10^3/uL (130-400); Red Blood Cell Count 3.69 10^6/uL (4.70-6.10); Red Cell Dist. Width 19.4 % (11.5-14.5); White Blood Cell Count 13.1 10^3/uL (4.8-10.8)
[2024-02-02 05:03] LABS: Blood Urea Nitrogen 49 mg/dl (9-20); Calcium 7.4 mg/dl (8.4-10.2); Carbon Dioxide 23 mmol/L (22-30); Chloride 106 mmol/L (98-107); Estimated Creatinine Clearance 41 ml/min; Glucose 264 mg/dl (70-99); Potassium 3.6 mmol/L (3.5-5.1); Sodium 141 mmol/L (135-145); Triglycerides 117 mg/dl (10-149); eGFR 38.77
[2024-02-02] MEDS: NOVOLOG FLEXPEN-HIGH RESISTANCE 7 UNITS SC ×2 (05:48→18:11)
[2024-02-02 05:58] LABS: Glucose - Point of Care 266 mg/dl (70-99)
[2024-02-02 06:09] LABS: APTT 89.3 Sec (23.4-35.0)
--- NOTE | 2024-02-02 07:32 | W.PN.INTV ---
Today's Communication / Plan
Recommendations
SBT trials daily but not tolerating
Add precedex to wean sedation
Further FU on LLE wound per [facility] team
Abx continued
Assessment
-
Patient is a 73-year-old male with previous history of hypertension, hyperlipidemia, CHF admitted to on 01/28/2024 for nonhealing left heel wound. He notes that he had a blister that was broken up and on his left heel and was prescribed a
topical antibiotic which did not improve his symptoms. Vascular was consulted and due to progressive lethargy, there is concern for ongoing sepsis. Underwent urgent debridement of heel on 01/29/2024 and transferred postoperatively to ICU.
Unresponsiveness, acute hypoxic respiratory failure status post intubation 01/30/24
Acute on chronic congestive heart failure exacerbation with reduced ejection fraction
Wet gangrene of the left heel status post urgent excisional debridement through bone with lavage and irrigation 01/29/2024
Nonhealing left heel wound
Leukocytosis
RAUL, creatinine 1.9 (BL 1.2-1.3)
Hyponatremia, mild
Hyperglycemia
Conditions present prior to admission
History of heart failure, ICM worsened LVEF at 30-35% - TTE 09/11/23
Hypertension
Hyperlipidemia
Morbid obesity, BMI 40.4
Left anterior fascicular block, chronic
History of persistent atrial fibrillation on Eliquis
Coronary disease with history of NH 20+ years ago
History of TIA
Severe sleep apnea, HST AHI 61/78%, failed CPAP 2021
Diabetes
Chronic DJD, back pain
[id number], quit
Chronic cough, COPD/RLD on PFTs, follows at [facility]-Dr Montiel/Chanelle
PAD
Plan
Sedation: Fentanyl, propofol--add precedex for weaning
RASS goal -2
CT head and neck obtained, carotid disease noted
Likely acute on chronic heart failure exacerbation
Troponin elevated, consult cards
Cardiac history as noted above
Transthoracic echo from 09/11/2023 shows declined LVEF at 30-35% down from 40% in 2021
Patient follows cardiology (Kim)
He underwent LHC and RHC on 09/13/2023 showed reduced CI and low PCWP with slightly elevated PADP with mild pHTN (mPAP: 23mmHg)- no additional diuresis
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
Rate control with goal HR<110bpm
Replete K>4, Mg>2
Daily lasix, received 1 dose and net neg -1L
Unresponsiveness status post intubation
COPD, RLD, morbid obesity, untreated severe ERICK noted
He is high risk for repeated procedures/anesthesia
Resume home inhalers
CT chest without PE, demonstrates edema/effusion
SBT daily trials, but has not been successful
If no further interventions, can advance diet as tolerated
GI ppx if indicated--on Pepcid 20 qHS
Aspiration precautions
Non healing would of LLE, on abx for coverage, concern for sepsis
s/p debridement 01/29/24, tissue culture sent
Blood culture negative
Complete course
Vasc following, follow up recs
Creat elevated, monitor function/IOs
If ongoing elevation noted, consult renal
Avoid any nephrotoxic agents
Diuresis daily added
CBC stable
DVT ppx: Eliquis
PT/OT when able
IDDM, resume home meds
accu checks AC qHS
SS coverage
Diagnostic Data
Chest X-Ray: 01/28/24- No acute cardiopulmonary process.
09/14/23- No active cardiopulmonary disease.
CT Scan: CHEST 10/18/22- Stable small perifissural pulmonary nodules along the left major fissure. Stable mild small reticulonodular interstitial opacities in the bilateral upper lobes, right greater than left.
CAP 3/1/23- No acute pathology of the chest, abdomen and pelvis identified. Few left upper and lower lobe pulmonary nodules. Bilateral small renal cysts. Bilateral too small to characterize hypodense renal lesions, likely benign cysts. Moderate
fecal material throughout the colon. Mild diverticulosis.
Echo: 12/12/23- Moderately reduced left ventricular systolic function. Estimated left ventricular ejection fraction is 35-40% . Wall motion analysis is limited due to image quality. Mild mitral regurgitation.
Compared to the previous report 12/12/2023 findings are similar no significant change previously estimated ejection fraction 35%
PFT's: 03/29/23 FEV1 1.91 L 77%, FVC 2.57 L 75%, ratio 74. TLC 3.63 L 59%, DLCO 60%--moderately severe restriction, mild diffusion impairment
Reports and relevant images were personally reviewed.
-----
Critical Care time 35 mins -- The patient is admitted for acute critical illness for the treatment of vital organ failure and/or prevention of further life-threatening conditions. Total care includes time spent in review of history, physical exam,
medications, hemodynamic/ventilator parameters, laboratory data, imaging and discussion with house staff, pharmacy, respiratory therapy, publishing manager, and nursing.
Subjective Dataa
Subjective Data
Date of Service:
Date of Service: February 02, 2024
Chief Complaint: Gang Saw Operator Follow Up
Subjective:
Remain intubated, has failed SBT trials
Foot appears with more discoloration
Objective Data
Data Reviewed
Vital Signs / I&O / Oxygen:
Vital Signs
Temp Pulse Resp BP Pulse Ox
97.5 F 70 18 113/44 100
02/02/24 05:37 02/02/24 05:30 02/02/24 05:30 02/01/24 08:16 02/02/24 05:30
Intake and Output
02/01/24 02/02/24 02/03/24
06:59 06:59 06:59
Intake Total 2459.4 / 2569.5 3115.9 / 3115.9
Output Total 3580 / 3580 3075 / 3075
Balance -1120.6 / -1010.5 40.9 / 40.9
SaO2 [A/C] 100
SaO2 100
Nasal Cannula flow liters per 6
minute
Physical Exam
General: Comfortable and Other (Critically ill)
HEENT: Normocephalic, Anicteric and Moist Mucous Membranes
Cardiovascular: S1-S2 and Regular Rhythm
Respiratory: Crackles, Non-Labored Respirations, ET Tube and Other (Decreased breath sounds on the right)
GI: Soft, Non Distended and Non Tender
Neurology: Lethargic (Sedated/intubated) and Non Verbal
Skin: Warm, Dry, Good Color and Other (discoloration, wound vac on LLE)
Labs/Micro/Reports
Lab Data
02/02/24 04:22
02/02/24 04:22
Laboratory Results
02/01/24 02/01/24 02/01/24
08:05 15:28 23:31
APTT 120.0 H 147.3 H 91.2 H
pH
pCO2
pO2
HCO3
O2 Delivery Level
02/02/24 02/02/24
04:22 05:47
APTT 89.3 H
pH 7.46 H
pCO2 32 L
pO2 124 H
HCO3 22.8
O2 Delivery Level
Microbiology
01/28/24 12:25 Blood/Venous Blood Culture - Preliminary
No Growth in 4 days- Final report to follow
01/31/24 12:12 Blood/Venous Blood Culture - Preliminary
No Growth in 24 hours- Final report to follow
01/31/24 11:15 Blood/Venous Blood Culture - Preliminary
No Growth in 24 hours- Final report to follow
01/29/24 15:30 Foot - Left Tissue Culture - Final
S aureus-Methicillin Sensitive
01/29/24 15:30 Foot - Left Gram Stain - Final
--- NOTE | 2024-02-02 07:51 | W.PN.HOSP.TC ---
Addendum entered and electronically signed by Val Marcano MD 02/02/24 15:36:
# Acute on chronic HFrEF
Original Note:
Today's Communication/Plan
-
see A/P
Assessment / Plan
Assessment / Plan
HP: Patient is 73 years old male with multiple comorbidities presented to the hospital with sepsis due to left foot plantar infected ulcer 2/2 diabetic foot ulcer and peripheral vascular disease.
A/P:
# Sepsis POA due to infected left plantar foot wound/ulcer, in setting of diabetes foot ulcer and peripheral vascular disease:
X-ray of the foot showed no fractures or erosions. Some osteoarthritic changes interphalangeal and first metatarsophalangeal joints. Dorsal talus osteophyte. No clear evidence of osteo.
s/p Left heel extensive sharp excisional debridement 6cm x 6cm x 1cm by Vascular on 01/28
L heel bone culture growing MSSA
IV Cefepime/vancomycin -> Merrem/vancomycin -> Unasyn
ID on board
There is NO further plan now for staged revascularization procedure (due to RAUL)
# Unclear cause of shock 01/29, possibly septic vs cardiogenic
# Acute on chronic hypoxic respiratory failure, resulting in intubation 01/29
Cont Levophed support, wean as tolerated
cont mechanical ventilation per [employer], pt on 2L NC HS COMPREHENSIVE ADVISOR
CT PE negative for PE, noted large right lower lobe consolidation and moderate right pleural effusion. Left lower lobe subsegmental atelectasis and small left pleural effusion. Groundglass opacity and mild septal thickening suggesting mild to
moderate pulmonary edema.
Pulm/[employer] on board
# Peripheral vascular disease
# S/P LLE arteriogram and stent to SFA and angioplasty to PT per vascular surgery in September this year.
Cont anticoagulation with aspirin, and statins.
Replacing COMPREHENSIVE ADVISOR Eliquis with heparin drip. Ok with Vascular.
Vascular on board
# RAUL, likely prerenal related to sepsis POA:
Creatinine 1.8 today from baseline 1.2
s/p IVF RL
Started IV lasix 40 mg daily for pulm edema
Avoid nephrotoxics, holding COMPREHENSIVE ADVISOR lisinopril/Aldactone
Cont bladder scans
Monitor renal function
Renal on board
# CAD
Continue current anti-ischemic regimen including aspirin, Lipitor
# Permanent atrial fibrillation:
Rate control Toprol on hold with shock
Replaced COMPREHENSIVE ADVISOR Eliquis with heparin drip
# Chronic HFrEF:
Reviewed last echocardiogram and EF 30 to 35% on September 2023
Monitor volume status closely
Dry weight is around 111 kg
Started IV lasix 40 mg daily for pulm edema
Cardiology following
# Hypertension
currently in shock
# Hyperlipidemia
# TIA
Continue anti-ischemic regimen
# Diabetes mellitus type 2
Cont insulin Lantus, adjust to 15 units daily (COMPREHENSIVE ADVISOR 45 units daily)
Insulin sliding scale
A1c 6.4%
# Asthma
Bronchodilators as needed
# Morbid Obesity
BMI 40
DVT prophylaxis: COMPREHENSIVE ADVISOR Eliquis replaced with heparin drip. Ok with [employer] and Vascular
CODE STATUS: Full code
DW RN
Updated on the phone.
CC time spent 41 min
Anticipated Discharge: > 48 hours
Subjective/Interval History
-
Date of Service: February 02, 2024
Objective Data
-
Labs:
Laboratory Results
02/01/24 02/02/24 02/02/24
23:31 04:22 05:47
WBC 13.1 H
Hgb 9.7 L
Hct 29.9 L
Plt Count 340
APTT 91.2 H 89.3 H
HCO3 22.8
Sodium 141
Potassium 3.6
Chloride 106
Carbon Dioxide 23
BUN 49 H
Creatinine 1.8 H
Glucose 264 H
Calcium 7.4 L
Vital Signs:
Vital Signs
Temp Pulse Resp BP Pulse Ox
36.4 C 70 18 113/44 100
02/02/24 05:37 02/02/24 05:30 02/02/24 05:30 02/01/24 08:16 02/02/24 05:30
I&O
02/01/24 02/02/24 02/03/24
06:59 06:59 06:59
Intake Total 2459.4 / 2569.5 3115.9 / 3115.9
Output Total 3580 / 3580 3075 / 3075
Balance -1120.6 / -1010.5 40.9 / 40.9
Review of Systems
-
Unable to obtain full review of systems at this time due to: Patient Intubation
Physical Exam
-
General: Well Developed, Well Nourished, Comfortable, Respiratory Distress, Intubated and Appears Chronically Ill
HEENT: Normocephalic, Atraumatic, Nose Appears Normal, Ears Appear Normal and Oxygen (vent)
Respiratory: Clear to Auscultation and Non Labored Respirations; Negative Accessory Resp Muscle Use
Cardiac: Regular Rhythm and S1/S2
GI: Soft, Nontender, Nondistended and Normal Bowel Sounds
Genito-urinary: Street
Musculoskeletal: Other (L foot in wound dressing , see wound care note)
Skin: Warm and Dry
Neuro: Sedated
Psych: Calm
Data Reviewed
-
Diagnostic Radiology: Image personally visualized and interpreted and Report Reviewed by me
CT Scan: Report Reviewed by me
Labs: Labs Reviewed by me
[2024-02-02] MEDS: LEVOPHED 250 IV (08:01)
[2024-02-02] MEDS: DESENEX/MITRAZOL/ZEASORB 1 APPLIC TOPICAL ×2 (08:03→19:37)
[2024-02-02] MEDS: NSS (PRESERVATIVE FREE) 10 ML IV (08:08)
[2024-02-02] MEDS: PROTONIX IV 40 MG IV (08:09)
[2024-02-02] MEDS: LOW STRENGTH ASPIRIN 81 MG TUBE (08:09)
[2024-02-02] MEDS: LASIX 40 MG IV ×2 (08:10→21:17)
[2024-02-02] MEDS: MIRALAX 17 GRAMS TUBE (08:10)
[2024-02-02] MEDS: SODIUM BICARBONATE 650 MG TUBE ×2 (08:10→19:37)
[2024-02-02] MEDS: FLUSH (NSS) 1 FLUSH IV (08:11)
[2024-02-02] MEDS: KCL 270 MEQ IV (08:17)
[2024-02-02 08:43] LABS: Glucose - Point of Care 259 mg/dl (70-99)
--- NOTE | 2024-02-02 09:00 | PTCARENOTE ---
Rec'd pt at 0730 resting in bed sedated on Fentanyl at 100 mcg and Propophol at 20 mcg. Does sl open eyes to verbal stimuli but no focus or tracking and does not follow commands. RUTLEDGE restlessly. Soft wrist restraints on for pt safety as he does
reach up toward ETT. Pupils sluggish at 2mm. Skin is pale wm and dry. Wound vac in place to -125 mm/hg- minimal tannish drainage in tubing. Top of foot with large area of ecchymosis/mottling. Foot is warm and + PT and DP doppler pulses. Bilat LE in
prevalon boots. Respirs are intact on the vent- AC 18, tv 500, peep 5 Fio2 40%- Adds very little rate or volume. Sats are 99-100%. BS are coarse. Suctioned for small amts of tannish secretions. + cough and gag. #8 Ett retaped at the 25 cm cole
center of the mouth. Tends to 'bite' on ETT. Monitor AFib -in the 60-70 when fully sedate- 90's now that his has been stimulated. Rec'd pt on Levophed at 6 mcg- weaning as BP tolerates to keep MAP >65- currently at 5 mcg. VS as documented. Heparin
gtt continues at 600 units/hr. Gtts infusing via L arm DL picc-site wnl. Abd is round/obese with hypoactive BS. Tolerating Osmolite Tube feeds at 45 ml/hr with 25 ml/hr flush via L nare feeding tube. No residual. No stools. Meds given. Street in
place for yellow urine. Lasix 40 mg IV given as ordered. 40 meq KCL rider hung via R upper arm- site wnl. Capped int inact R wrist. R radial liana intact- site wnl. Zeroed and recalibrated. Congurent with cuff bP. Turned and repositioned. Skin and
mouth care given.
--- NOTE | 2024-02-02 09:31 | W.PN.ID1 ---
Date of Service
Date of Service: February 02, 2024
Today's Communication
c/w unasyn
Assessment / Plan
Persistent shock - possibly with a cardiogenic component; EF has declined
Left heel ulcer with wet gangrene s/p debridement to bone
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
RAUL on CKD
Shock liver
AMS
Multisystem organ failure - improving
Class III obesity
- 01/27 single blood culture NGTD; 01/30 blood cultures x2 no growth to date
- 01/28 tissue culture with MSSA, no anaerobic culture done
- note nephrology concern for possible need for HD - will avoid nephrotoxic medications/medication combinations
- deescalation to unasyn for now
- will require a 6 week course of IV antibiotics
Risks of treatment failure for calcaneal osteomyelitis relatively high, nevertheless agree with attempts at foot salvage which impacts quality of life. Pleased that Dm2 under control, patient is not an active smoker and has had revascularization.
Patient is critically ill.
Chief Complaint
-: Other (wet gangrene s/p debridement; osteomyelitis)
Subjective / Review of Systems
afebrile
ongoing pressor requirement noted
now with ischemic changes around the dorsal foot
Vital Signs / Physical Exam
Vital Signs
Vital Signs
Temp Pulse Resp BP Pulse Ox
99.3 F 92 18 146/65 99
02/02/24 08:00 02/02/24 08:10 02/02/24 07:30 02/02/24 08:10 02/02/24 08:11
Physical Exam
Constitutional: No Acute Distress and Chronically Ill
Cardiovascular: Regular Rate and S1/S2; Negative Murmur or Rub
Pulmonary: Clear and Symmetric; Negative Wheezes or Rales
Gastrointestinal: Soft, Non Tender, Non Distended and Normal Bowel Sounds
Musculoskeletal: Other (dorsal L foot with ischemic changes)
Skin: Warm and Dry; Negative Rash or Jaundice
Objective Data
Lab Data
Lab Results
02/02/24 04:22
02/02/24 04:22
ESR 95 mm/hour (0-20) H 01/28/24 07:14
PT 27.4 Sec (11.4-14.6) H 01/31/24 08:53
INR 2.50 01/31/24 08:53
APTT 89.3 Sec (23.4-35.0) H 02/02/24 05:47
Estimated Creat Clear 41 ml/min 02/02/24 04:22
Lactic Acid 1.1 mmol/L (0.7-2.0) 01/31/24 04:35
Total Bilirubin 1.3 mg/dl (0.2-1.3) D 01/31/24 04:35
AST 222 U/L (17-59) H 01/31/24 04:35
ALT 135 U/L (0-50) H 01/31/24 04:35
Alkaline Phosphatase 175 U/L (38-126) H 01/31/24 04:35
C-Reactive Protein > 270.00 mg/L (0.0-10.00) H 01/28/24 07:41
Most recent labs reviewed.
Micro Results:
01/28/24 12:25 Blood Culture - Preliminary
Blood/Venous No Growth in 4 days- Final report to follow
01/31/24 12:12 Blood Culture - Preliminary
Blood/Venous No Growth in 24 hours- Final report to follow
01/31/24 11:15 Blood Culture - Preliminary
Blood/Venous No Growth in 24 hours- Final report to follow
01/29/24 15:30 Tissue Culture - Final
Foot - Left S aureus-Methicillin Sensitive
Gram Stain - Final
01/28/24 14:04 MRSA Screen - Final
Nose No Methicillin Resistant Staphylococcus aureus isolated.
[2024-02-02] MEDS: SUBLIMAZE 50 MCG IV (09:55)
--- NOTE | 2024-02-02 10:00 | PTCARENOTE ---
Medicated with additional Fentanyl 50 mcg after L heel dressing change. HR up to the 130-140's Afib and pt more restless. Sl opens eyes to name but does not follow commands. Daughter in and updated. Weaning IV Levophed as BP permits- Currently at 3
mcg
[2024-02-02] MEDS: LANTUS 0.15 UNITS SC (10:05)
--- NOTE | 2024-02-02 10:40 | PTCARENOTE ---
Vascular surgery and wound care in to discuss L heel wound. Wound vac removed earlier by wound care and saline wet-dry dressing done. Will leave wound vac off. HR down to 103-110 post Fentanyl bolus.
--- NOTE | 2024-02-02 10:52 | WOUNDNOTE ---
LEFT HEEL MEDIAL PERIWOUND
--- NOTE | 2024-02-02 10:53 | WOUNDNOTE ---
LEFT FOOT DORSAL VIEW
--- NOTE | 2024-02-02 10:53 | WOUNDNOTE ---
LEFT HEEL LATERAL VIEW
--- NOTE | 2024-02-02 10:53 | WOUNDNOTE ---
[facility] RN NOTE: Visited patient to change left heel vac. Base of wound necrotic appearing and periwound is macerated, with some of the skin peeling. No odor noted. Scant serosanguineous drainage in canister. Dorsal aspect of foot with new, ecchymotic
appearing skin. Patient continues on Levophed and is intubated and sedated with several co-morbidities. TT pics to Nicole Santiago NP who assessed patient at bedside. New plan is to pack wound with saline gauze BID while protecting the periwound skin
with sure-prep. Daughters at bedside and plan explained by this RN and Nicole. Right heel intact. Per JETHRO Aguila sacrum recently assessed and is intact. Vac placed in soiled utility room. Orders updated and JETHRO Aguila given update.Will continue to
follow peripherally.
[2024-02-02] MEDS: PRECEDEX 100 IV ×3 (11:00→19:38)
--- NOTE | 2024-02-02 11:00 | W.PN.VS ---
Today's Communication / Plan
-
Reviewed HPI, physical exam, and wound updates with on-call attending Dr. Vin Bartlett, who agrees with below plan.
Assessment/Plan
-
POD 3 left heel debridement
Plan:
-Holding off on arteriogram until patient stable, creatinine remains elevated
-Continue Prevalon boots
-Continue dressing changes per order
-Patient is at high risk for limb loss due to extent of heel wound and bone exposure
Subjective Data
-
Date of Service: February 02, 2024
Patient seen and evaluated at bedside along with wound care nurse Freya. Patient intubated and sedated.
Objective Data
-
Vital Signs
Temp Pulse Resp BP Pulse Ox
100.9 F H 60 18 98/41 100
02/02/24 15:21 02/02/24 14:30 02/02/24 14:30 02/02/24 14:23 02/02/24 14:30
Intake and Output
02/01/24 02/02/24 02/03/24
06:59 06:59 06:59
Intake Total 2459.4 / 2569.5 3115.9 / 3238.0 1554.0 / 1554.0
Output Total 3580 / 3580 3075 / 3075 1005 / 1005
Balance -1120.6 / -1010.5 40.9 / 163.0 549.0 / 549.0
Intake:
IV fluids (Total) 1649.4 / 1704.5 1305.9 / 1358.0 659.0 / 659.0
KCL rider 270.0 / 270.0
Nss 1,000 ml @ 100 mls/hr IV . 350 / 350
Q10H JAMIA Rx#:[id number]
Precedex 74.5 / 74.5
fent 242.5 / 252.5 235 / 245 60 / 60
heparin 175 / 184 159 / 165 54 / 54
levo 529.3 / 551.8 516.8 / 539.3 142.7 / 142.7
prop 352.6 / 366.2 395.1 / 408.7 57.8 / 57.8
IV piggybacks 240 / 240 100 / 100
Tube feeding 380 / 410 925 / 970 445 / 445
Feeding tube flush amount 400 / 425 645 / 670 350 / 350
Amount instilled into GI Tube ( 30 30
Total)
[place] Sump 30
Output:
Gastrointestinal tube output ( 225 / 225
Total)
[place] Sump 225 / 225
Urine, Street 3355 / 3355 3075 / 3075 1005 / 1005
Lab Results
02/02/24 04:22
02/02/24 04:22
Calcium 7.4 mg/dl (8.4-10.2) L 02/02/24 04:22
Phosphorus 4.0 mg/dl (2.5-4.5) 01/31/24 04:35
Magnesium 2.2 mg/dl (1.6-2.3) 02/01/24 03:04
Total Bilirubin 1.3 mg/dl (0.2-1.3) D 01/31/24 04:35
Direct Bilirubin 0.7 mg/dl (0.0-0.4) H 01/31/24 04:35
AST 222 U/L (17-59) H 01/31/24 04:35
ALT 135 U/L (0-50) H 01/31/24 04:35
Alkaline Phosphatase 175 U/L (38-126) H 01/31/24 04:35
Total Protein 6.2 g/dl (6.3-8.2) L 01/31/24 04:35
Albumin 2.6 g/dl (3.5-5.0) L 01/31/24 04:35
Physical Exam
-
AAOx3
Intubated and ventilated
Abdomen soft
Heel site dry, wound VAC removed, unable to redress with VAC out of concern for continued viability of skin edges, will initiate wet-to-dry dressing changes twice daily instead of VAC, minimal area of bone exposed, skin with pink edges, however skin
edges noted with sloughing, nonodorous, no purulent drainage
--- NOTE | 2024-02-02 11:10 | W.PN.NEPH.PH ---
Today's Communication / Plan
-
follow labs
Assessment/Plan
-
Impression:
RAUL
CKD 3b (1.6)
Metabolic acidosis
Left plantar foot ulceration with gangrenous changes s/p debridement
Ischemic cardiomyopathy
History of hypertension
History of diabetes
Profound peripheral vascular disease
Diabetes
Plan:
RAUL:in setting of left foot infection , however had contrast exposure on 01/29
old UA bland, keep sosa -non oliguric
cr slightly improving to 1.8
wean pressors to maintain MAP >65
cont lasix per ICU
Holding Jardiance, metformin, spironolactone and KARL inhibitor at this time
monitor met acidosis, decrease po bicarb
On TF, tolerating
vent management per ICU, mild alkalemia with resp alkalosis
no angiogram planned currently
dose meds renally
d/w nursing and ICU
-
-
Date of Service: February 02, 2024
CC / HPI / ROS
-
Chief Complaint:
RAUL with CKD
History of Present Illness:
cr peak at 2.2, this am 1.8
non oliguric with sosa
no fever, sodium normal, bicarb better at 23
ph 7.46, pco2 32
Review of Systems:
intubated and sedated, Fio2 40%
wt no change
Labs
-
Labs:
WBC 13.1 10^3/uL (4.8-10.8) H 02/02/24 04:22
RBC 3.69 10^6/uL (4.70-6.10) L 02/02/24 04:22
Hgb 9.7 g/dL (13.0-18.0) L 02/02/24 04:22
Hct 29.9 % (39.0-52.0) L 02/02/24 04:22
Plt Count 340 10^3/uL (130-400) 02/02/24 04:22
Sodium 141 mmol/L (135-145) 02/02/24 04:22
Potassium 3.6 mmol/L (3.5-5.1) 02/02/24 04:22
Chloride 106 mmol/L (98-107) 02/02/24 04:22
Carbon Dioxide 23 mmol/L (22-30) 02/02/24 04:22
BUN 49 mg/dl (9-20) H 02/02/24 04:22
Creatinine 1.8 mg/dL (0.7-1.3) H 02/02/24 04:22
eGFR 38.77 02/02/24 04:22
Glucose 264 mg/dl (70-99) H 02/02/24 04:22
Calcium 7.4 mg/dl (8.4-10.2) L 02/02/24 04:22
Phosphorus 4.0 mg/dl (2.5-4.5) 01/31/24 04:35
Jbl-V-Nkdgouiqapm Pept 53437 pg/ml 01/31/24 09:09
Albumin 2.6 g/dl (3.5-5.0) L 01/31/24 04:35
Physical Exam
-
Vital Signs:
Vital Signs
Temp Pulse Resp BP Pulse Ox
99.3 F 92 18 146/65 99
02/02/24 08:00 02/02/24 08:10 02/02/24 07:30 02/02/24 08:10 02/02/24 08:11
Cardiovascular:: Regular rate and rhythm
Respiratory:: Bilateral: CTA (anteriorly)
Lung Excursion:: Normal
Abdomen:: Nontender and Soft
Extremity Edema:: None: Bilateral:
Sosa Catheter: Yes
--- NOTE | 2024-02-02 11:35 | PTCARENOTE ---
Pt remains resting. Will start to open eyes to name/verbal stimuli but but does not focus or track and does not follow commands. Will have intermittent rhythmic moving of his arms but will not nod or grasp on command. Decsion made to ion exchange operator to
Precedex- gtt initiated at 1105. via L DL picc at 0.4 mcg/kg/min. Diprivan decreased to 10 mcg at 1115 and IV Fentanyl to 50 mcg at 1130. Weaning IV Levophed as bP permits. Was as low as 2 mcg but could not maintain MAP >65 and currently on 4 mcg.
Pt placed on SBT at 1115 CPAP 5/PS 5 fio2 40%- sats are 98%, HR 98-130 depending on stimulation. RR 18-20. TV 360-420. Pt turned and repositioned. Daughter at the bedside and updated.
[2024-02-02 11:45] LABS: Glucose - Point of Care 250 mg/dl (70-99)
[2024-02-02] MEDS: NOVOLOG FLEXPEN-HIGH RESISTANCE 300 UNITS SC (12:35)
--- NOTE | 2024-02-02 12:45 | PTCARENOTE ---
Has remained on the the CPAP 5/PS 5 wean since 111- Propophol has been off since 1200. He has periods of being restful and HR is is the 80-100's and then others when he is more wakeful and constantly chewing on the ETT. Opens eyes but does not
follow commands.Does not focus or track. When he is more wakeful HR is in the 120-140's. Afib. RR when restful is 20-24 and 28-29 range when more awake. Resp therapy and Dr. Greer updated. Daughter at the bedside. [facility] benykaylee completed. Levophed at
4mcg.
--- NOTE | 2024-02-02 13:15 | PTCARENOTE ---
Dr. Greer updated. Will adjust Precedex as needed and Fentanyl weaned off at 1300. Goes between being restful with HR in the 80-90's and more awake but chewing on the ett and BP up in the 150's and HR in the 140-150's. Comes immediately back down
when dozes back off. Eyes when awake tend to be upward and does not track. Did however when L wrist restraint was untied- tried to reach up at ETT. Suctioned. TV on the CPAP/PSV starting to run in the 280-310 range and RR 27-30. As such, Resp
therapy in and pt placed back on AC settings. AC 18, tv 500, peep 5. Sats 99%Currently Family remains at the bedside.
--- NOTE | 2024-02-02 13:22 | PN.CDI ---
CDI
- -
CDI:
Physician Documentation Request
Admit Date: 01/28/24 10:56
Dear Doctor Jeet,
Clinical Indicators:
Patient admitted with sepsis.
01/31 Cardiology PN, 'acute on chronic HFrEF'
02/01 PN, 'Chronic HFrEF...Started IV lasix 40 mg daily for pulm edema'
BNP
01/31/24
09:09
Wwz-F-Hzbaghiijwy Pept [id number]
Due to potentially conflicting documentation, please clarify the acuity of the HFrEF:
Acute on chronic HFrEF
Chronic HFrEF only
Other
Use of terms such as suspected, likely, concern for, or probable (associated with a specific diagnosis that is being evaluated, monitored, or treated as if it exists) are acceptable and can be coded in the inpatient setting, when documented at the
time of discharge.
Thank you,
Shireen Espinal RN BSN
CDI Specialist
available via tiger text
Please use your independent medical judgment in providing your response.
--- NOTE | 2024-02-02 13:30 | PTCARENOTE ---
Dr. Greer updated. Fentanyl weaned off at 1300 with goal of just Precedex- currently at 0.8 mcg. Goes between being restful with HR in the 80-90's and more awake but chewing on the ett and BP up in the 150's and HR in the 140-150's. Comes
immediately back down when dozes back off. Eyes when awake tend to be upward and does not track. Did however when L wrist restraint was untied- tried to reach up at ETT. Suctioned. TV on the CPAP/PSV starting to run in the 280-310 range and RR
27-30. As such, Resp therapy in and pt placed back on AC settings at 1327. AC 18, tv 500, peep 5. Sats 99%Currently Family remains at the bedside
--- NOTE | 2024-02-02 14:00 | PTCARENOTE ---
Tube feeds increased per order to 65 ml with 25 ml/hr flush. Restful currently on the 0.8 mcg of Precedex
--- NOTE | 2024-02-02 14:12 | CM ---
CM following re: discharge planning.
Discussed in Rounds, reviewed pt's chart, met with pt. Per Rounds meeting, pt remains intubated, short weaning trial today, continue supportive care. Per ID pt will need up to 6 weeks of IV antibiotics.
D/C plan: uncertain at this time and will depend on pt's progress.
CM will follow with discharger plan updates as hospitalization progresses
--- NOTE | 2024-02-02 15:58 | PTCARENOTE ---
Assessment is unchanged. Mostly sedate on the 0.8 mcg of Precedex but will open eyes to verbal/tactile stimuli but continues with sl upward gaze and no focus or tracking. RUTLEDGE but not to command. RICH at 2 mm. + weak gag and + cough. Suctioned or
scant amt of whitish/plaza secretions. Tolerating AC settings. Mostly stays controlled at 18 but will stimulation will add a few extra breaths. VS as documented. BP rises with stimulation. Remains on 4 mcg of Levophed. Tolerating tube feeds. Street
draining yellow urine. Turned and repositioned. Skin and mouth care given. Soft wrist restraints remain intact.
[2024-02-02] MEDS: TYLENOL ORAL SOLUTION 650 MG TUBE (16:25)
--- NOTE | 2024-02-02 16:30 | PTCARENOTE ---
temp 100.9 - medicated with Tylenol 650 mg via feeding tube
--- NOTE | 2024-02-02 16:56 | W.PN.CD ---
Addendum entered and electronically signed by Saul Davis MD 02/02/24 20:09:
I saw and examined the patient.
The ANTISQUE[employer] APPLIER's note was reviewed and I agree with the note.
Comment: Failed SBT today, now back on sedation. Currently he is a bit bronchospastic on exam anteriorly. Otherwise does appear volume overloaded with peripheral edema. Consider additional dose of Lasix tonight. Renal function is improving with
diuresis. Although still remains net positive. Will discuss with nephrology and medicine.
Original Note:
Today's Communication / Plan
-
-wean pressors as tolerated- remains on Levophed at present
-continue IV heparin
-continue IV lasix and monitor response
-monitor telemetry
Impression / Plan
-
VDRF:
-this diagnosis is threat to life
-pulm following
-?RT consolidation/pleural effusion, lt atelectasis
-diuresis to assess response
-?need for diagnostic tap of right pleural effusion
Hypotension suspected secondary to sepsis:
-still requiring Levophed (which requires intensive monitoring)- wean as tolerated
-Continue antibiotics
-ID following
Ischemic cardiomyopathy 35 to 40% by echocardiogram 12/12/2023
-acute on chronic HFrEF -wt now below prior 'dry'wt
-GDMT limited by BP
-on daily IV Lasix for now
-Continue to monitor volume and labs closely
Atrial fibrillation- at times elevated heart rates but requiring vasopressor, will continue to monitor. Continue heparin drip, typically on Eliquis. Resume when able. Currently HR's well-controlled.
Non-GA troponin elevated related to septic shock
-Continue supportive treatment
-Continue aspirin.
Coronary artery disease- prior history of [place]. Chronically occluded LAD.
Left heel ulcer with wet gangrene s/p debridement to bone/OM- Patient has had previous debridement debridement vascular following. ID following
RAUL - acute on chronic. Improving
PAD: On aspirin with his Eliquis
Subjective:
He is intubated and sedated. He is in no distress and appears comfortable at the time of my assessment.
Physical Exam
Vital Signs/Labs
Vital Signs
Temp Pulse Resp BP Pulse Ox
100.9 F H 60 18 98/41 100
02/02/24 15:21 02/02/24 14:30 02/02/24 14:30 02/02/24 14:23 02/02/24 15:54
02/01/24 02/02/24 02/03/24
06:59 06:59 06:59
Actual Weight 109.7 kg 110.5 kg
02/02/24 04:22
02/02/24 04:22
PT 27.4 Sec (11.4-14.6) H 01/31/24 08:53
INR 2.50 01/31/24 08:53
APTT 89.3 Sec (23.4-35.0) H 02/02/24 05:47
Magnesium 2.2 mg/dl (1.6-2.3) 02/01/24 03:04
Triglycerides 117 mg/dl (10-149) 02/02/24 04:22
01/31/24
09:09
Ljz-T-Rddhzvyhevv Pept [id number]
LAB Results
01/31/24 01/31/24 01/31/24
09:09 15:44 21:24
Troponin I 0.110 H* 0.099 H* 0.090 H*
Physical Exam
Constitutional: No acute distress
Cardiovascular: Rhythm/rate is irregular
Respiratory: Rhonchi Present and Other (intubated and ventilated)
Neuro/Psych: Other (sedated)
Data Reviewed
-
Date of Service: February 02, 2024
EKG: Other (AFIB, currently rate-controlled)
Labs: Labs Reviewed by me
[2024-02-02 17:59] LABS: Glucose - Point of Care 269 mg/dl (70-99)
[2024-02-02] MEDS: LIPITOR 80 MG PO (18:10)
--- NOTE | 2024-02-02 18:10 | PTCARENOTE ---
BP as documented. Levophed decreased to 3 mcg. Pt restful. No changes in assessment
[2024-02-02] MEDS: NOVOLIN R 8 UNITS IV (21:07)
[2024-02-02] MEDS: NOVOLIN R INSULIN INFUSION 100 IV (21:11)
[2024-02-02 21:18] LABS: Glucose - Point of Care 392 mg/dl (70-99)
[2024-02-02 22:17] LABS: Glucose - Point of Care 312 mg/dl (70-99)
[2024-02-02 23:21] LABS: Glucose - Point of Care 185 mg/dl (70-99)
[2024-02-03] MEDS: UNASYN IV ×4 (00:12→17:21)
[2024-02-03] MEDS: PRECEDEX 100 IV ×7 (00:13→22:23)
[2024-02-03 00:18] LABS: Glucose - Point of Care 200 mg/dl (70-99)
[2024-02-03 00:58] VITALS: BP 110/42
[2024-02-03 01:12] LABS: Glucose - Point of Care 184 mg/dl (70-99)
[2024-02-03] MEDS: SUBLIMAZE 50 MCG IV ×4 (02:08→22:50)
[2024-02-03 02:14] LABS: Glucose - Point of Care 226 mg/dl (70-99)
[2024-02-03 03:02] VITALS: BP 127/57
[2024-02-03 03:18] LABS: Glucose - Point of Care 185 mg/dl (70-99)
[2024-02-03 03:19] LABS: B.E. 1.1 mmol/L; O2 Saturation % 99.4 % (94-98); PCO2 36 mmHg (35-48); PO2 117 mmHg (83-108); pH 7.45 (7.35-7.45)
[2024-02-03 03:21] LABS: % Basophils 0.2 % (0-2); % Eosinophils 1.1 % (0-6); % Lymphocytes 11.9 % (20.5-51.1); % Monocytes 5.8 % (1.7-9.3); Absolute Eosinophils 0.1 10^3/uL (0-0.7); Absolute Immature Granulocytes 0.3 10^3/uL (0-0.05); Absolute Lymphocytes 1.6 10^3/uL (1.2-3.4); Absolute Monocytes 0.8 10^3/uL (0.1-0.6); Absolute Neutrophils 10.5 10^3/uL (1.4-6.5); Hematocrit 30.9 % (39.0-52.0); Mean Corp Hgb Conc. 32.4 g/dL (33.0-37.0); Mean Corpuscular Hgb 26.5 pg (27.0-31.0); Mean Platelet Volume 10.9 fL (7.4-10.4); Nucleated Red Blood Cells % 0.7 % (-); Platelet Count 293 10^3/uL (130-400); Red Blood Cell Count 3.77 10^6/uL (4.70-6.10); Red Cell Dist. Width 19.6 % (11.5-14.5); White Blood Cell Count 13.3 10^3/uL (4.8-10.8)
[2024-02-03 03:42] VITALS: BMI 39.4
--- NOTE | 2024-02-03 03:43 | PTCARENOTE ---
Pt received at 19:00, opens eyes spontaneously, not following commands. Afib 60s-80s. DP & PT pulses by doppler bilaterally. Radials weak but palpable. #8 ETT @ 25cm, repositioned to the R. AC 18/500/40%/+5. Coarse breath sounds t/o. DHT inplace and
infusing TF as ordered. Street with clear yellow output. x1 40mg IVP lasix given approx 21:00, 200-425ml/hr after dose given. L heel saline wet to dry dressing changed as ordered. R radial a-line zeroed, transduced and correlating with cuff pressure.
[2024-02-03 03:48] LABS: Blood Urea Nitrogen 51 mg/dl (9-20); Calcium 7.2 mg/dl (8.4-10.2); Carbon Dioxide 25 mmol/L (22-30); Chloride 108 mmol/L (98-107); Estimated Creatinine Clearance 44 ml/min; Glucose 188 mg/dl (70-99); Potassium 3.9 mmol/L (3.5-5.1); Sodium 143 mmol/L (135-145); eGFR 41.52
[2024-02-03 03:49] LABS: APTT 60.8 Sec (23.4-35.0)
[2024-02-03 04:13] LABS: Glucose - Point of Care 168 mg/dl (70-99)
[2024-02-03] MEDS: HEPARIN 25000 UNITS/250 ML IV ×2 (05:17→08:32)
[2024-02-03] MEDS: LEVOPHED 250 IV (05:18)
[2024-02-03 05:21] LABS: Glucose - Point of Care 137 mg/dl (70-99)
[2024-02-03 06:14] LABS: Glucose - Point of Care 140 mg/dl (70-99)
--- NOTE | 2024-02-03 06:38 | W.PN.CD ---
Today's Communication / Plan
-
Currently on Levophed at 2. Wean as tolerated but maintain MAP target as requested by vascular.
Can continue Lasix at current dosing which is Lasix 40 mg IV daily. Creatinine appears stable 1.7. weight stable
Consider follow-up chest x-ray
Impression / Plan
-
VDRF:
-this diagnosis is threat to life
-pulm following
-?RT consolidation/pleural effusion, lt atelectasis
-diuresis to assess response
-?need for diagnostic tap of right pleural effusion
Hypotension suspected secondary to sepsis:
-still requiring Levophed (which requires intensive monitoring)- wean as tolerated
-Continue antibiotics
-ID following
Ischemic cardiomyopathy 35 to 40% by echocardiogram 12/12/2023
-acute on chronic HFrEF -wt now below prior 'dry'wt
-GDMT limited by BP
-on daily IV Lasix for now
-Continue to monitor volume and labs closely
Atrial fibrillation-
-Monitor rates
- continue heparin drip, typically on Eliquis. Resume when able. Currently HR's well-controlled.
Non-MD troponin elevated related to septic shock
-Continue supportive treatment
-Continue aspirin.
Coronary artery disease- prior history of [place]. Chronically occluded LAD.
Left heel ulcer with wet gangrene s/p debridement to bone/OM- Patient has had previous debridement debridement vascular following. ID following
RAUL - acute on chronic. Improving
PAD: On aspirin with his Eliquis
Subjective:
He is intubated and sedated. Appears comfortable. Some wheezing noted on exam
Physical Exam
Vital Signs/Labs
Vital Signs
Temp Pulse Resp BP Pulse Ox
97.2 F 64 18 127/57 100
02/03/24 03:42 02/03/24 03:45 02/03/24 03:45 02/03/24 03:02 02/03/24 04:46
02/01/24 02/02/24 02/03/24
06:59 06:59 06:59
Actual Weight 109.7 kg 110.5 kg 110.6 kg
02/03/24 03:07
02/03/24 03:07
PT 27.4 Sec (11.4-14.6) H 01/31/24 08:53
INR 2.50 01/31/24 08:53
APTT 60.8 Sec (23.4-35.0) H 02/03/24 03:07
Magnesium 2.2 mg/dl (1.6-2.3) 02/01/24 03:04
Triglycerides 117 mg/dl (10-149) 02/02/24 04:22
01/31/24
09:09
Tsy-C-Jbdqzylwcpt Pept [id number]
LAB Results
01/31/24 01/31/24 01/31/24
09:09 15:44 21:24
Troponin I 0.110 H* 0.099 H* 0.090 H*
Physical Exam
Constitutional: No acute distress
Cardiovascular: Rhythm/rate is irregular
Respiratory: Other (Intubated. Coarse vented breath sounds with wheeze.)
GI: Soft, Distention absent and Normal bowel sounds
Neuro/Psych: Other (Vented and sedated)
Other: Other (Lower extremities left foot dressing intact)
Data Reviewed
-
Date of Service: February 03, 2024
Medical Decision Making: Reviewed Test Results
X-Ray/CT/US/MRI/NUC/PET: Report Reviewed by me
Medical Tests (PFT, Pathology etc): Report Reviewed by me
Labs: Labs Reviewed by me
Critical Care Time (in minutes): 35
[2024-02-03] MEDS: NOVOLIN R INSULIN INFUSION 100 IV ×2 (07:07→22:49)
--- NOTE | 2024-02-03 07:08 | W.PN.INTV ---
Today's Communication / Plan
Recommendations
Ongoing SBT, not yet ready
Lasix daily, monitor output
Change heparin to Eliquis
Off sedation, on precedex, HR improved
May consider MRI if MS not improved after next 24 hours
Updated daughter at bedside
Assessment
-
Patient is a 73-year-old male with previous history of hypertension, hyperlipidemia, CHF admitted to on 01/28/2024 for nonhealing left heel wound. He notes that he had a blister that was broken up and on his left heel and was prescribed a
topical antibiotic which did not improve his symptoms. Vascular was consulted and due to progressive lethargy, there is concern for ongoing sepsis. Underwent urgent debridement of heel on 01/29/2024 and transferred postoperatively to ICU.
Unresponsiveness, acute hypoxic respiratory failure status post intubation 01/30/24
Acute on chronic congestive heart failure exacerbation with reduced ejection fraction
Wet gangrene of the left heel status post urgent excisional debridement through bone with lavage and irrigation 01/29/2024
Nonhealing left heel wound
Leukocytosis
RAUL, creatinine 1.9 (BL 1.2-1.3)
Hyponatremia, mild
Hyperglycemia
Conditions present prior to admission
History of heart failure, ICM worsened LVEF at 30-35% - TTE 09/11/23
Hypertension
Hyperlipidemia
Morbid obesity, BMI 40.4
Left anterior fascicular block, chronic
History of persistent atrial fibrillation on Eliquis
Coronary disease with history of [place] 20+ years ago
History of TIA
Severe sleep apnea, HST AHI 61/78%, failed CPAP 2021
Diabetes
Chronic DJD, back pain
12-[id number]-vutl, quit
Chronic cough, COPD/RLD on PFTs, follows at [facility]-Dr Montiel/Chanelle
PAD
Plan
Sedation: Off Fentanyl, propofol--continue precedex for weaning
RASS goal -2
CT head and neck obtained, carotid disease noted
If MS not improved, may consider MRI
Likely acute on chronic heart failure exacerbation
Troponin elevated, consult cards
Cardiac history as noted above
Transthoracic echo from 09/11/2023 shows declined LVEF at 30-35% down from 40% in 2021
Patient follows cardiology (Kim)
He underwent LHC and RHC on 09/13/2023 showed reduced CI and low PCWP with slightly elevated PADP with mild pHTN (mPAP: 23mmHg)- no additional diuresis
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
Rate control with goal HR<110bpm
Replete K>4, Mg>2
Daily lasix, received 1 dose and net neg -1L
Unresponsiveness status post intubation
COPD, RLD, morbid obesity, untreated severe ERICK noted
He is high risk for repeated procedures/anesthesia
Resume home inhalers
CT chest without PE, demonstrates edema/effusion
SBT daily trials, but has not been successful
If no further interventions, can advance diet as tolerated
GI ppx if indicated--on Pepcid 20 qHS
Aspiration precautions
Non healing would of LLE, on abx for coverage, concern for sepsis
s/p debridement 01/29/24, tissue culture sent
Blood culture negative
Complete course
Vasc following, follow up recs
Creat elevated, monitor function/IOs
If ongoing elevation noted, consult renal
Avoid any nephrotoxic agents
Diuresis daily added
CBC stable
DVT ppx: Eliquis
PT/OT when able
IDDM, resume home meds
accu checks AC qHS
SS coverage
Diagnostic Data
Chest X-Ray: 01/28/24- No acute cardiopulmonary process.
09/14/23- No active cardiopulmonary disease.
CT Scan: CHEST 10/18/22- Stable small perifissural pulmonary nodules along the left major fissure. Stable mild small reticulonodular interstitial opacities in the bilateral upper lobes, right greater than left.
CAP 05/04/22- No acute pathology of the chest, abdomen and pelvis identified. Few left upper and lower lobe pulmonary nodules. Bilateral small renal cysts. Bilateral too small to characterize hypodense renal lesions, likely benign cysts. Moderate
fecal material throughout the colon. Mild diverticulosis.
Echo: 12/12/23- Moderately reduced left ventricular systolic function. Estimated left ventricular ejection fraction is 35-40% . Wall motion analysis is limited due to image quality. Mild mitral regurgitation.
Compared to the previous report 12/12/2023 findings are similar no significant change previously estimated ejection fraction 35%
PFT's: 03/29/23 FEV1 1.91 L 77%, FVC 2.57 L 75%, ratio 74. TLC 3.63 L 59%, DLCO 60%--moderately severe restriction, mild diffusion impairment
Reports and relevant images were personally reviewed.
-----
Critical Care time 35 mins -- The patient is admitted for acute critical illness for the treatment of vital organ failure and/or prevention of further life-threatening conditions. Total care includes time spent in review of history, physical exam,
medications, hemodynamic/ventilator parameters, laboratory data, imaging and discussion with house staff, pharmacy, respiratory therapy, director of quality, and nursing.
Subjective Dataa
Subjective Data
Date of Service:
Date of Service: February 03, 2024
Chief Complaint: Director Mission Follow Up
Subjective:
Remains intubated, SBT trials ongoing
MS improving but not quite back to baseline
Off sedation, only on low precedex dosing, HR improved
Objective Data
Data Reviewed
Vital Signs / I&O / Oxygen:
Vital Signs
Temp Pulse Resp BP Pulse Ox
97.2 F 64 18 127/57 97
02/03/24 03:42 02/03/24 03:45 02/03/24 03:45 02/03/24 03:02 02/03/24 05:12
Intake and Output
02/02/24 02/03/24 02/04/24
06:59 06:59 06:59
Intake Total 3115.9 / 3238.0 3672.0 / 3672.0
Output Total 3075 / 3075 3725 / 3725
Balance 40.9 / 163.0 -53.0 / -53.0
SaO2 [CPAP/PSV] 97
SaO2 [A/C] 100
SaO2 97
Nasal Cannula flow liters per 6
minute
Physical Exam
General: Comfortable and Other (Critically ill)
HEENT: Normocephalic, Anicteric and Moist Mucous Membranes
Cardiovascular: S1-S2 and Regular Rhythm
Respiratory: Crackles, Non-Labored Respirations, ET Tube and Other (Decreased breath sounds on the right)
GI: Soft, Non Distended and Non Tender
Neurology: Lethargic (Sedated/intubated) and Non Verbal
Skin: Warm, Dry, Good Color and Other (discoloration, wound vac on LLE)
Labs/Micro/Reports
Lab Data
02/03/24 03:07
02/03/24 03:07
Laboratory Results
02/03/24
03:07
APTT 60.8 H
pH 7.45
pCO2 36
pO2 117 H
HCO3 25.0
O2 Delivery Level
Microbiology
01/28/24 12:25 Blood/Venous Blood Culture - Final
No Growth - Final Report
01/31/24 12:12 Blood/Venous Blood Culture - Preliminary
No Growth in 48 hours- Final report to follow
01/31/24 11:15 Blood/Venous Blood Culture - Preliminary
No Growth in 48 hours- Final report to follow
01/29/24 15:30 Foot - Left Tissue Culture - Final
S aureus-Methicillin Sensitive
01/29/24 15:30 Foot - Left Gram Stain - Final
[2024-02-03 07:13] LABS: Glucose - Point of Care 119 mg/dl (70-99)
[2024-02-03] MEDS: TYLENOL ORAL SOLUTION 650 MG TUBE ×2 (07:30→15:27)
[2024-02-03] MEDS: MIRALAX 17 GRAMS TUBE (07:30)
[2024-02-03] MEDS: LOW STRENGTH ASPIRIN 81 MG TUBE (07:31)
[2024-02-03] MEDS: SODIUM BICARBONATE 650 MG TUBE (07:31)
[2024-02-03] MEDS: RISPERDAL 0.25 MG PO ×2 (07:31→17:23)
[2024-02-03] MEDS: LASIX 40 MG IV (07:31)
[2024-02-03] MEDS: PROTONIX IV 40 MG IV (07:32)
[2024-02-03] MEDS: NSS (PRESERVATIVE FREE) 10 ML IV (07:32)
[2024-02-03 07:40] VITALS: BP 123/55
--- NOTE | 2024-02-03 07:49 | W.PN.HOSP.TC ---
Today's Communication/Plan
-
see A/P
Assessment / Plan
Assessment / Plan
HP: Patient is 73 years old male with multiple comorbidities presented to the hospital with sepsis due to left foot plantar infected ulcer 2/2 diabetic foot ulcer and peripheral vascular disease.
A/P:
# Sepsis POA due to infected left plantar foot wound/ulcer, in setting of diabetes foot ulcer and peripheral vascular disease:
X-ray of the foot showed no fractures or erosions. Some osteoarthritic changes interphalangeal and first metatarsophalangeal joints. Dorsal talus osteophyte. No clear evidence of osteo.
s/p Left heel extensive sharp excisional debridement 6cm x 6cm x 1cm by Vascular on 01/28
L heel bone culture growing MSSA
IV Cefepime/vancomycin -> Merrem/vancomycin -> Unasyn
ID on board
There is NO further plan now for staged revascularization procedure (due to RAUL and clinical instability)
# Unclear cause of shock on 01/29, possibly septic vs cardiogenic
# Acute on chronic hypoxic respiratory failure, resulting in intubation 01/29
CT PE negative for PE, noted large right lower lobe consolidation and moderate right pleural effusion. Left lower lobe subsegmental atelectasis and small left pleural effusion. Groundglass opacity and mild septal thickening suggesting mild to
moderate pulmonary edema.
Cont Levophed support, wean as tolerated
cont mechanical ventilation per Vehicle Maintenance Supervisor, pt on 2L NC HS MOBILE BATTERY TECHNICIAN
Tube feeding while intubated.
Off Fentanyl/Propofol, on Precedex for sedation
Pulm/Vehicle Maintenance Supervisor on board
# Initial RAUL likely 2/2 sepsis, now likely 2/2 cardiorenal syndrome
# Acute on chronic HFrEF
Creatinine 1.7 today from baseline 1.2, cont to monitor
Cont IV lasix 40 mg daily for pulm edema. Dry weight is around 111 kg
Avoid nephrotoxics, holding MOBILE BATTERY TECHNICIAN lisinopril/Aldactone
last echo in September 2023 with EF 30 to 35%
Card/Renal on board
# Peripheral vascular disease
# S/P LLE arteriogram and stent to SFA and angioplasty to PT per vascular surgery in September this year.
NO plan now for staged revascularization procedure (due to RAUL and clinical instability)
Replacing MOBILE BATTERY TECHNICIAN Eliquis with heparin drip. Ok with Vascular.
Vascular on board
# CAD
Continue current anti-ischemic regimen including aspirin, Lipitor
# Permanent atrial fibrillation:
Rate control Toprol on hold with shock
Replaced MOBILE BATTERY TECHNICIAN Eliquis with heparin drip
# Hypertension
currently in shock
# Hyperlipidemia
# TIA
Continue anti-ischemic regimen
# Diabetes mellitus type 2
MOBILE BATTERY TECHNICIAN on Tresiba 45 units daily
currently on insulin drip for ICU glycemic control
A1c 6.4%
# Asthma
Bronchodilators as needed
# Morbid Obesity
BMI 40
DVT prophylaxis: MOBILE BATTERY TECHNICIAN Eliquis replaced with heparin drip. Ok with Vehicle Maintenance Supervisor and Vascular
CODE STATUS: Full code
DW RN
Updated on the phone.
CC time spent 41 min
Anticipated Discharge: > 48 hours
Subjective/Interval History
-
Date of Service: February 03, 2024
Objective Data
-
Labs:
Laboratory Results
02/03/24 02/03/24
03:07 10:45
WBC 13.3 H
Hgb 10.0 L
Hct 30.9 L
Plt Count 293
APTT 60.8 H Pending
HCO3 25.0
Sodium 143
Potassium 3.9
Chloride 108 H
Carbon Dioxide 25
BUN 51 H
Creatinine 1.7 H
Glucose 188 H
Calcium 7.2 L
Vital Signs:
Vital Signs
Temp Pulse Resp BP Pulse Ox
36.2 C 58 18 122/54 97
02/03/24 03:42 02/03/24 07:31 02/03/24 03:45 02/03/24 07:31 02/03/24 05:12
I&O
02/02/24 02/03/24 02/04/24
06:59 06:59 06:59
Intake Total 3115.9 / 3238.0 3672.0 / 3672.0
Output Total 3075 / 3075 3725 / 3725
Balance 40.9 / 163.0 -53.0 / -53.0
Review of Systems
-
Unable to obtain full review of systems at this time due to: Patient Intubation
Physical Exam
-
General: Well Developed, Well Nourished, Respiratory Distress, Intubated and Appears Chronically Ill
HEENT: Normocephalic, Atraumatic, Nose Appears Normal, Ears Appear Normal and Oxygen (on vent)
Respiratory: Clear to Auscultation and Non Labored Respirations; Negative Accessory Resp Muscle Use
Cardiac: Regular Rhythm and S1/S2
GI: Soft, Nontender, Nondistended and Normal Bowel Sounds
Genito-urinary: Street
Musculoskeletal: Other (L foot in wound dressing , see wound care note)
Skin: Warm and Dry
Psych: Agitated
Data Reviewed
-
Diagnostic Radiology: Image personally visualized and interpreted and Report Reviewed by me
CT Scan: Report Reviewed by me
Labs: Labs Reviewed by me
[2024-02-03] MEDS: DESENEX/MITRAZOL/ZEASORB 1 APPLIC TOPICAL ×2 (07:57→22:23)
--- NOTE | 2024-02-03 08:18 | W.PN.NEPH.PH ---
Today's Communication / Plan
-
Will reduce sodium bicarb to 650 mg daily
Creatinine at baseline
Remains intubated
Low-dose Levophed to support MAP of 65 or greater
Check chest x-ray and
Assessment/Plan
-
Impression:
RAUL
CKD 3b (1.6)
Metabolic acidosis
Left plantar foot ulceration with gangrenous changes s/p debridement
Ischemic cardiomyopathy
History of hypertension
History of diabetes
Profound peripheral vascular disease
Diabetes
Plan:
RAUL:in setting of left foot infection , however had contrast exposure on 01/29
old DELORES mendez, keep sosa -non oliguric 3600cc via sosa
cr slightly improving to 1.7 and now at baseline
wean pressors to maintain MAP >65, currently on levophed
cont lasix per ICU at 40mg daily today
Holding Jardiance, metformin, spironolactone and KARL inhibitor at this time
monitor met acidosis, decrease po bicarb
On TF, tolerating
vent management per ICU, mild alkalemia with resp alkalosis
no angiogram planned currently
dose meds renally
d/w nursing and ICU
Critically ill on vent and low-dose Levophed
31 minutes critical care time spent with patient
-
-
Date of Service: February 03, 2024
CC / HPI / ROS
-
Chief Complaint:
RAUL with CKD
History of Present Illness:
cr peak at 2.2, this am 1.7
non oliguric with sosa
no fever, sodium normal, bicarb better at 25
ph 7.46, pco2 32
Still on pressors
Review of Systems:
intubated and sedated, Fio2 40%
wt no change
Labs
-
Labs:
WBC 13.3 10^3/uL (4.8-10.8) H 02/03/24 03:07
RBC 3.77 10^6/uL (4.70-6.10) L 02/03/24 03:07
Hgb 10.0 g/dL (13.0-18.0) L 02/03/24 03:07
Hct 30.9 % (39.0-52.0) L 02/03/24 03:07
Plt Count 293 10^3/uL (130-400) 02/03/24 03:07
Sodium 143 mmol/L (135-145) 02/03/24 03:07
Potassium 3.9 mmol/L (3.5-5.1) 02/03/24 03:07
Chloride 108 mmol/L (98-107) H 02/03/24 03:07
Carbon Dioxide 25 mmol/L (22-30) 02/03/24 03:07
BUN 51 mg/dl (9-20) H 02/03/24 03:07
Creatinine 1.7 mg/dL (0.7-1.3) H 02/03/24 03:07
eGFR 41.52 02/03/24 03:07
Glucose 188 mg/dl (70-99) H 02/03/24 03:07
Calcium 7.2 mg/dl (8.4-10.2) L 02/03/24 03:07
Phosphorus 4.0 mg/dl (2.5-4.5) 01/31/24 04:35
Mgg-W-Yidaegyxnvm Pept 06709 pg/ml 01/31/24 09:09
Albumin 2.6 g/dl (3.5-5.0) L 01/31/24 04:35
Physical Exam
-
Vital Signs:
Vital Signs
Temp Pulse Resp BP Pulse Ox
97.2 F 83 22 123/55 99
02/03/24 03:42 02/03/24 07:45 02/03/24 07:45 02/03/24 07:40 02/03/24 07:53
Cardiovascular:: Regular rate and rhythm
Respiratory:: Bilateral: CTA (anteriorly)
Lung Excursion:: Normal
Abdomen:: Nontender and Soft
Extremity Edema:: None: Bilateral:
Sosa Catheter: Yes
--- NOTE | 2024-02-03 08:40 | W.PN.ID1 ---
Date of Service
Date of Service: February 03, 2024
Today's Communication
- c/w unasyn for now
- will require a 6 week course of IV antibiotics
Assessment / Plan
Persistent shock - possibly with a cardiogenic component; EF has declined
Left heel ulcer with wet gangrene s/p debridement to bone
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
RAUL on CKD
Shock liver
AMS
Multisystem organ failure - improving
Class III obesity
- 01/27 single blood culture NGTD; 01/30 blood cultures x2 no growth to date
- 01/28 tissue culture with MSSA, no anaerobic culture done
- daily differential not adding to assessment - reordered as cbc no diff
- note nephrology concern for possible need for HD - will avoid nephrotoxic medications/medication combinations
- c/w unasyn for now
- will require a 6 week course of IV antibiotics
Risks of treatment failure for calcaneal osteomyelitis relatively high, nevertheless agree with attempts at foot salvage which impacts quality of life. Pleased that Dm2 under control, patient is not an active smoker and has had revascularization.
Patient is critically ill on the vent and pressors
Chief Complaint
-: Other (wet gangrene s/p debridement; osteomyelitis)
Subjective / Review of Systems
fever to 100.9
declining pressor requirements
no other events overnight
Vital Signs / Physical Exam
Vital Signs
Vital Signs
Temp Pulse Resp BP Pulse Ox
98.2 F 83 22 123/55 99
02/03/24 07:25 02/03/24 07:45 02/03/24 07:45 02/03/24 07:40 02/03/24 07:53
Physical Exam
Constitutional: No Acute Distress and Chronically Ill
Cardiovascular: Regular Rate and S1/S2; Negative Murmur or Rub
Pulmonary: Clear and Symmetric; Negative Wheezes or Rales
Gastrointestinal: Soft, Non Tender, Non Distended and Normal Bowel Sounds
Skin: Warm and Dry; Negative Rash or Jaundice
Wound: Other (dressing take down deferred today)
Objective Data
Lab Data
Lab Results
02/03/24 03:07
02/03/24 03:07
ESR 95 mm/hour (0-20) H 01/28/24 07:14
PT 27.4 Sec (11.4-14.6) H 01/31/24 08:53
INR 2.50 01/31/24 08:53
APTT 60.8 Sec (23.4-35.0) H 02/03/24 03:07
Estimated Creat Clear 44 ml/min 02/03/24 03:07
Lactic Acid 1.1 mmol/L (0.7-2.0) 01/31/24 04:35
Total Bilirubin 1.3 mg/dl (0.2-1.3) D 01/31/24 04:35
AST 222 U/L (17-59) H 01/31/24 04:35
ALT 135 U/L (0-50) H 01/31/24 04:35
Alkaline Phosphatase 175 U/L (38-126) H 01/31/24 04:35
C-Reactive Protein > 270.00 mg/L (0.0-10.00) H 01/28/24 07:41
Most recent labs reviewed.
Micro Results:
01/28/24 12:25 Blood Culture - Final
Blood/Venous No Growth - Final Report
01/31/24 12:12 Blood Culture - Preliminary
Blood/Venous No Growth in 48 hours- Final report to follow
01/31/24 11:15 Blood Culture - Preliminary
Blood/Venous No Growth in 48 hours- Final report to follow
01/29/24 15:30 Tissue Culture - Final
Foot - Left S aureus-Methicillin Sensitive
Gram Stain - Final
01/28/24 14:04 MRSA Screen - Final
Nose No Methicillin Resistant Staphylococcus aureus isolated.
--- NOTE | 2024-02-03 08:56 | PTCARENOTE ---
recd pt 0715 handoff bedside, restless, RUTLEDGE, gtts as noted, titration levophed to off, restarted for MAP <65 (61). ETT to vent, tolerating. awaiting plans for day. incont large amount soft/loose brown TF stool, cleaned, repositioned. PRN meds
given, tylenol, risperidone as ordered. art line zero and flori, cuff congruent, see documentation. presently resting, eyes closed. family visiting.
[2024-02-03 09:24] LABS: Glucose - Point of Care 95 mg/dl (70-99)
[2024-02-03] MEDS: ELIQUIS 5 MG PO ×2 (10:22→22:23)
--- NOTE | 2024-02-03 11:02 | PTCARENOTE ---
on wean, within a few minutes tachypneic, non-redirectable, supported, oral care, positioned for comfort, returned to previous settings after approx 10 min, precedex as noted.
[2024-02-03 11:26] LABS: Glucose - Point of Care 141 mg/dl (70-99)
[2024-02-03 13:21] LABS: Glucose - Point of Care 118 mg/dl (70-99)
--- NOTE | 2024-02-03 14:58 | PTCARENOTE ---
family remains, updates. restless at times but not as agitated/animated as earlier, on 0.8 mcg/kg/hr precedex, pulls hard at restraints at times.
[2024-02-03 15:12] LABS: Glucose - Point of Care 102 mg/dl (70-99)
[2024-02-03] MEDS: LIPITOR 80 MG PO (17:21)
[2024-02-03 17:30] LABS: Glucose - Point of Care 142 mg/dl (70-99)
[2024-02-03 19:23] LABS: Glucose - Point of Care 115 mg/dl (70-99)
[2024-02-03 21:13] LABS: Glucose - Point of Care 83 mg/dl (70-99)
[2024-02-03 23:17] LABS: Glucose - Point of Care 165 mg/dl (70-99)
--- NOTE | 2024-02-03 23:29 | PTCARENOTE ---
pt. remains intubated on light sedation with Dex.
On insulin gtt protocol, low dose norepi.
Very restless, prn given, dex titrated.
Does not follow commands, opens eyes spont, positive pain w/d.
Pat in place correlating approp. w/ NIBP. Afib rate controlled.
[2024-02-04] VITALS (15 sets, daily range): BP systolic 106–129; BP diastolic 48–92; BMI 39.4
--- NOTE | 2024-02-04 00:04 | PTCARENOTE ---
Norepi titrated off.
No further change in pt. assessment.
[2024-02-04] MEDS: UNASYN IV ×2 (00:12→06:29)
[2024-02-04] MEDS: PRECEDEX 100 IV ×7 (00:13→21:20)
[2024-02-04 01:12] LABS: Glucose - Point of Care 150 mg/dl (70-99)
[2024-02-04 03:13] LABS: Glucose - Point of Care 95 mg/dl (70-99)
--- NOTE | 2024-02-04 04:26 | PTCARENOTE ---
no change in pt. assessment.
[2024-02-04 04:52] LABS: Hematocrit 29.3 % (39.0-52.0); Hemoglobin 9.5 g/dL (13.0-18.0); Mean Corp Hgb Conc. 32.4 g/dL (33.0-37.0); Mean Corpuscular Hgb 26.5 pg (27.0-31.0); Mean Corpuscular Volume 81.6 fL (80.0-94.0); Mean Platelet Volume 10.7 fL (7.4-10.4); Platelet Count 241 10^3/uL (130-400); Red Blood Cell Count 3.59 10^6/uL (4.70-6.10); Red Cell Dist. Width 19.4 % (11.5-14.5); White Blood Cell Count 13.1 10^3/uL (4.8-10.8)
[2024-02-04] MEDS: DEXTROSE 50% SYRINGE 12.5 GRAMS IV (06:05)
[2024-02-04 06:19] LABS: Glucose - Point of Care 158 mg/dl (70-99)
[2024-02-04 06:19] LABS: Glucose - Point of Care 128 mg/dl (70-99)
[2024-02-04 06:19] LABS: Glucose - Point of Care 60 mg/dl (70-99)
[2024-02-04 06:19] LABS: Blood Urea Nitrogen 54 mg/dl (9-20); Calcium 6.9 mg/dl (8.4-10.2); Carbon Dioxide 27 mmol/L (22-30); Chloride 110 mmol/L (98-107); Estimated Creatinine Clearance 50 ml/min; Glucose 43 mg/dl (70-99); Potassium 4.3 mmol/L (3.5-5.1); Sodium 145 mmol/L (135-145); eGFR 48.25
--- NOTE | 2024-02-04 06:44 | W.PN.CD ---
Today's Communication / Plan
-
follow up CXR 02/04/24 - limited quality based on positioning await report
hypoglcemia this morning - given 1/2 amp and dreip adjusted per protocol. - tx per primary team
weight stable
pressors wened off overnight
weaning of vent as per pulmonary
Impression / Plan
-
VDRF:
-wean per pulmonary
-?RT consolidation/pleural effusion, lt atelectasis
-diuresis to assess response. (follow up CXR 02/04/24) limited quality based on postioning await report)
Hypotension suspected secondary to sepsis:
-still requiring Levophed (which requires intensive monitoring)- wean as tolerated
-Continue antibiotics
-ID following
Ischemic cardiomyopathy 35 to 40% by echocardiogram 12/12/2023
-acute on chronic HFrEF -wt now below prior 'dry'wt
-GDMT limited by BP
-on daily IV Lasix for now
-Continue to monitor volume and labs closely
Atrial fibrillation-
-rate controlled
- continue heparin drip, typically on Eliquis. Resume when able. Currently HR's well-controlled.
Non-KS troponin elevated related to septic shock
-Continue supportive treatment
Coronary artery disease- prior history of KS. Chronically occluded LAD.
- continue ASA
Left heel ulcer with wet gangrene s/p debridement to bone/OM- Patient has had previous debridement debridement vascular following. ID following
RAUL - acute on chronic. Improving
.
anemia - monitor
PAD: On aspirin with his Eliquis
Subjective:
He is intubated and sedated.
Physical Exam
Vital Signs/Labs
Vital Signs
Temp Pulse Resp BP Pulse Ox
99.0 F 55 18 123/55 99
02/04/24 03:37 02/04/24 06:00 02/04/24 06:00 02/03/24 07:40 02/04/24 06:00
02/02/24 02/03/24 02/04/24
06:59 06:59 06:59
Actual Weight 110.5 kg 110.6 kg 110.8 kg
02/04/24 04:18
02/04/24 04:18
PT 27.4 Sec (11.4-14.6) H 01/31/24 08:53
INR 2.50 01/31/24 08:53
APTT Cancelled 02/03/24 10:45
Magnesium 2.2 mg/dl (1.6-2.3) 02/01/24 03:04
Triglycerides 117 mg/dl (10-149) 02/02/24 04:22
01/31/24
09:09
Lvz-T-Qowvbancdfv Pept 06004
Physical Exam
Constitutional: No acute distress and Other (vented)
Cardiovascular: Rhythm/rate is irregular
Respiratory: Other (ccourse vented BS)
GI: Soft and Distention absent
Neuro/Psych: Other (sedated)
Data Reviewed
-
Date of Service: February 04, 2024
Medical Decision Making: Reviewed Test Results
Medical Tests (PFT, Pathology etc): Report Reviewed by me
Labs: Labs Reviewed by me
[2024-02-04 07:13] LABS: Glucose - Point of Care 130 mg/dl (70-99)
--- NOTE | 2024-02-04 07:27 | W.PN.INTV ---
Today's Communication / Plan
Recommendations
SBT trials daily, but given his conditions, he had risk for prolongation on vent
Failed SBT today, returned to vent
Remains on precedex only, MS improved
Discussed with patient and daughter at bedside, re: [facility] --he would not want trach
Remains full code
Assessment
-
Patient is a 73-year-old male with previous history of hypertension, hyperlipidemia, CHF admitted to on 01/28/2024 for nonhealing left heel wound. He notes that he had a blister that was broken up and on his left heel and was prescribed a
topical antibiotic which did not improve his symptoms. Vascular was consulted and due to progressive lethargy, there is concern for ongoing sepsis. Underwent urgent debridement of heel on 01/29/2024 and transferred postoperatively to ICU.
Unresponsiveness, acute hypoxic respiratory failure status post intubation 01/30/24
Acute on chronic congestive heart failure exacerbation with reduced ejection fraction
Wet gangrene of the left heel status post urgent excisional debridement through bone with lavage and irrigation 01/29/2024
Nonhealing left heel wound
Leukocytosis
RAUL, creatinine 1.9 (BL 1.2-1.3)
Hyponatremia, mild
Hyperglycemia
Conditions present prior to admission
History of heart failure, ICM worsened LVEF at 30-35% - TTE 09/11/23
Hypertension
Hyperlipidemia
Morbid obesity, BMI 40.4
Left anterior fascicular block, chronic
History of persistent atrial fibrillation on Eliquis
Coronary disease with history of KS 20+ years ago
History of TIA
Severe sleep apnea, HST AHI 61/78%, failed CPAP 2021
Diabetes
Chronic DJD, back pain
[id number], quit
Chronic cough, COPD/RLD on PFTs, follows at [facility]-Dr Montiel/Chanelle
PAD
Plan
Sedation: Off Fentanyl, propofol >24 hours --continue precedex for weaning
RASS goal 0
CT head and neck obtained, carotid disease noted
MS better today, he at times refuses to answer
Likely acute on chronic heart failure exacerbation
Troponin elevated, cards following
Cardiac history as noted above
Transthoracic echo from 09/11/2023 shows declined LVEF at 30-35% down from 40% in 2021
Patient follows cardiology (Kim)
He underwent LHC and RHC on 09/13/2023 showed reduced CI and low PCWP with slightly elevated PADP with mild pHTN (mPAP: 23mmHg)- no additional diuresis
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
Rate control with goal HR<110bpm
Replete K>4, Mg>2
Daily lasix, PO 40mg
Unresponsiveness status post intubation 01/29 (Day 6 on vent)
High risk for prolongation given conditions -- COPD, RLD, morbid obesity, CHF, untreated severe ERICK, noncompliance
CT chest without PE, demonstrates edema/effusion
SBT daily trials, but has not been successful
Discussed with family that if he does not make progress, need to discuss GOC-he has refused trach
If no further interventions, can advance diet as tolerated
GI ppx if indicated--on Pepcid 20 qHS
Aspiration precautions
Non healing would of LLE, on abx for coverage, concern for sepsis
s/p debridement 01/29/24, tissue culture sent, wound vac
Blood culture negative
Complete course
Vasc following, follow up recs
Creat elevated, monitor function/IOs
If ongoing elevation noted, consult renal
Avoid any nephrotoxic agents
Diuresis daily added
CBC stable
DVT ppx: Eliquis
PT/OT when able
IDDM, resume home meds
accu checks AC qHS
SS coverage
Diagnostic Data
Chest X-Ray: 01/28/24- No acute cardiopulmonary process.
09/14/23- No active cardiopulmonary disease.
CT Scan: CHEST 10/18/22- Stable small perifissural pulmonary nodules along the left major fissure. Stable mild small reticulonodular interstitial opacities in the bilateral upper lobes, right greater than left.
CAP 05/04/22- No acute pathology of the chest, abdomen and pelvis identified. Few left upper and lower lobe pulmonary nodules. Bilateral small renal cysts. Bilateral too small to characterize hypodense renal lesions, likely benign cysts. Moderate
fecal material throughout the colon. Mild diverticulosis.
Echo: 12/12/23- Moderately reduced left ventricular systolic function. Estimated left ventricular ejection fraction is 35-40% . Wall motion analysis is limited due to image quality. Mild mitral regurgitation.
Compared to the previous report 12/12/2023 findings are similar no significant change previously estimated ejection fraction 35%
PFT's: 03/29/23 FEV1 1.91 L 77%, FVC 2.57 L 75%, ratio 74. TLC 3.63 L 59%, DLCO 60%--moderately severe restriction, mild diffusion impairment
Reports and relevant images were personally reviewed.
-----
Critical Care time 35 mins -- The patient is admitted for acute critical illness for the treatment of vital organ failure and/or prevention of further life-threatening conditions. Total care includes time spent in review of history, physical exam,
medications, hemodynamic/ventilator parameters, laboratory data, imaging and discussion with house staff, pharmacy, respiratory therapy, tanbark peeler, and nursing.
Subjective Dataa
Subjective Data
Date of Service:
Date of Service: February 04, 2024
Chief Complaint: Frozen Meat Cutter Follow Up
Subjective:
Remains intubated, SBT trials ongoing
Family at bedside
MS better today
Objective Data
Data Reviewed
Vital Signs / I&O / Oxygen:
Vital Signs
Temp Pulse Resp BP Pulse Ox
99.0 F 55 18 123/55 99
02/04/24 03:37 02/04/24 06:00 02/04/24 06:00 02/03/24 07:40 02/04/24 06:00
Intake and Output
02/03/24 02/04/24 02/05/24
06:59 06:59 06:59
Intake Total 3672.0 / 3808.1 3443.0 / 3661.6 218.6 / 218.6
Output Total 3725 / 3845 2115 / 2115
Balance -53.0 / -36.9 1328.0 / 1546.6 218.6 / 218.6
SaO2 [CPAP/PSV] 97
SaO2 [A/C] 100
SaO2 99
Nasal Cannula flow liters per 6
minute
Physical Exam
General: Comfortable and Other (Critically ill)
HEENT: Normocephalic, Anicteric and Moist Mucous Membranes
Cardiovascular: S1-S2 and Regular Rhythm
Respiratory: Crackles, Non-Labored Respirations, ET Tube and Other (Decreased breath sounds on the right)
GI: Soft, Non Distended and Non Tender
Neurology: Lethargic (will open eyes and respond, purposefully evading answering) and Non Verbal
Skin: Warm, Dry, Good Color and Other (discoloration, wound vac on LLE)
Labs/Micro/Reports
Lab Data
02/04/24 04:18
02/04/24 04:18
Laboratory Results
02/03/24
10:45
APTT Cancelled
Microbiology
01/31/24 12:12 Blood/Venous Blood Culture - Preliminary
No Growth in 72 hours- Final report to follow
01/31/24 11:15 Blood/Venous Blood Culture - Preliminary
No Growth in 72 hours- Final report to follow
01/28/24 12:25 Blood/Venous Blood Culture - Final
No Growth - Final Report
01/29/24 15:30 Foot - Left Tissue Culture - Final
S aureus-Methicillin Sensitive
01/29/24 15:30 Foot - Left Gram Stain - Final
--- NOTE | 2024-02-04 07:40 | W.PN.NEPH.PH ---
Today's Communication / Plan
-
Transition Lasix to p.o.
Replete with IV calcium
Assessment/Plan
-
Impression:
RAUL
CKD 3b (1.6)
Metabolic acidosis
Left plantar foot ulceration with gangrenous changes s/p debridement
Ischemic cardiomyopathy
History of hypertension
History of diabetes
Profound peripheral vascular disease
Diabetes
Plan:
RAUL:in setting of left foot infection , however had contrast exposure on 01/29
old UA bland, keep sosa -non oliguric via sosa
cr at baseline 1.5 and now at baseline
replete Calcium IV
Change Lasix from 40 mg IV to 40 mg p.o. daily
wean pressors to maintain MAP >65, currently on levophed
Holding Jardiance, metformin, spironolactone and KARL inhibitor at this time,h
monitor met acidosis, decrease po bicarb
On TF, tolerating
vent management per ICU, mild alkalemia with resp alkalosis
no angiogram planned currently
dose meds renally
d/w nursing and ICU
Critically ill on vent and low-dose Levophed
31 minutes critical care time spent with patient
-
-
Date of Service: February 04, 2024
CC / HPI / ROS
-
Chief Complaint:
RAUL with CKD
History of Present Illness:
cr peak at 2.2, this am 1.5
non oliguric with sosa
no fever, sodium normal, bicarb better at 27
Hemodynamically stable
Hypocalcemia and
Review of Systems:
intubated and sedated, Fio2 40%
wt down
Grossly nonoliguric via
Labs
-
Labs:
WBC 13.1 10^3/uL (4.8-10.8) H 12/01/24 04:18
RBC 3.59 10^6/uL (4.70-6.10) L 02/04/24 04:18
Hgb 9.5 g/dL (13.0-18.0) L 02/04/24 04:18
Hct 29.3 % (39.0-52.0) L 02/04/24 04:18
Plt Count 241 10^3/uL (130-400) 02/04/24 04:18
Sodium 145 mmol/L (135-145) 02/04/24 04:18
Potassium 4.3 mmol/L (3.5-5.1) 02/04/24 04:18
Chloride 110 mmol/L (98-107) H 02/04/24 04:18
Carbon Dioxide 27 mmol/L (22-30) 02/04/24 04:18
BUN 54 mg/dl (9-20) H 02/04/24 04:18
Creatinine 1.5 mg/dL (0.7-1.3) H 02/04/24 04:18
eGFR 48.25 02/04/24 04:18
Glucose 43 mg/dl (70-99) L* 02/04/24 04:18
Calcium 6.9 mg/dl (8.4-10.2) L* 02/04/24 04:18
Phosphorus 4.0 mg/dl (2.5-4.5) 01/31/24 04:35
Idl-E-Duoknvrruwm Pept 29691 pg/ml 01/31/24 09:09
Albumin 2.6 g/dl (3.5-5.0) L 01/31/24 04:35
Physical Exam
-
Vital Signs:
Vital Signs
Temp Pulse Resp BP Pulse Ox
98.6 F 55 18 123/55 99
02/04/24 07:00 02/04/24 06:00 02/04/24 06:00 02/03/24 07:40 02/04/24 06:00
Cardiovascular:: Regular rate and rhythm
Respiratory:: Bilateral: CTA (anteriorly)
Lung Excursion:: Normal
Abdomen:: Nontender and Soft
Extremity Edema:: None: Bilateral:
Sosa Catheter: Yes
[2024-02-04] MEDS: NSS (PRESERVATIVE FREE) 10 ML IV (07:44)
[2024-02-04] MEDS: PROTONIX IV 40 MG IV (07:44)
[2024-02-04] MEDS: TYLENOL ORAL SOLUTION 650 MG TUBE ×2 (07:45→11:58)
[2024-02-04] MEDS: ELIQUIS 5 MG PO ×2 (07:45→21:21)
[2024-02-04] MEDS: SODIUM BICARBONATE 650 MG TUBE (07:45)
[2024-02-04] MEDS: LOW STRENGTH ASPIRIN 81 MG TUBE (07:45)
[2024-02-04] MEDS: RISPERDAL 0.25 MG PO ×2 (07:45→14:14)
[2024-02-04] MEDS: MIRALAX TUBE (07:46)
[2024-02-04] MEDS: LASIX 40 MG IV (07:47)
--- NOTE | 2024-02-04 08:02 | W.PN.HOSP.TC ---
Today's Communication/Plan
-
see A/P
Assessment / Plan
Assessment / Plan
HP: Patient is 73 years old male with multiple comorbidities presented to the hospital with sepsis due to left foot plantar infected ulcer 2/2 diabetic foot ulcer and peripheral vascular disease.
A/P:
# Sepsis POA due to infected left plantar foot wound/ulcer, in setting of diabetes foot ulcer and peripheral vascular disease:
X-ray of the foot showed no fractures or erosions. Some osteoarthritic changes interphalangeal and first metatarsophalangeal joints. Dorsal talus osteophyte. No clear evidence of osteo.
s/p Left heel extensive sharp excisional debridement 6cm x 6cm x 1cm by Vascular on 01/28
L heel bone culture growing MSSA
IV Cefepime/vancomycin -> Merrem/vancomycin -> Unasyn
ID on board
There is NO further plan now for staged revascularization procedure (due to RAUL and clinical instability)
# Unclear cause of shock on 01/29, possibly septic vs cardiogenic
# Acute on chronic hypoxic respiratory failure, resulting in intubation 01/29
CT PE negative for PE, noted large right lower lobe consolidation and moderate right pleural effusion. Left lower lobe subsegmental atelectasis and small left pleural effusion. Groundglass opacity and mild septal thickening suggesting mild to
moderate pulmonary edema.
weaned off Levophed
cont mechanical ventilation per Broth Setter, pt on 2L NC HS LEATHER ETCHER
Tube feeding for nutrition while intubated.
Off Fentanyl/Propofol, on Precedex for sedation
May consider MRI if MS not improved
Pulm/Broth Setter on board
# Initial RAUL likely 2/2 sepsis, now likely 2/2 cardiorenal syndrome
# Acute on chronic HFrEF
Creatinine 1.7 today from baseline 1.2, cont to monitor
IV lasix 40 mg daily -> PO 40 daily via dophoff. Dry weight is around 111 kg
Avoid nephrotoxics, holding LEATHER ETCHER lisinopril/Aldactone
last echo from September 2023 with EF 30 to 35%
Card/Renal on board
# Peripheral vascular disease
# S/P LLE arteriogram and stent to SFA and angioplasty to PT per vascular surgery in September this year.
NO plan now for staged revascularization procedure (due to RAUL and clinical instability)
heparin drip now back to LEATHER ETCHER Eliquis.
Vascular on board
# CAD
Continue current anti-ischemic regimen including aspirin, Lipitor
# Permanent atrial fibrillation:
Rate control Toprol on hold with shock
heparin drip now back to LEATHER ETCHER Eliquis.
# Hypertension
# Hyperlipidemia
# TIA
Continue anti-ischemic regimen
# Diabetes mellitus type 2
A1c 6.4%
LEATHER ETCHER on Tresiba 45 units daily
Hypoglycemia while on insulin drip glycemic control. Hold further insulin drip
cover with ISS
# Asthma
Bronchodilators as needed
# Morbid Obesity
BMI 40
# Hypoglycemia
DVT prophylaxis: heparin drip now back to LEATHER ETCHER Eliquis.
CODE STATUS: Full code
DW RN
Updated on the phone.
CC time spent 41 min
Anticipated Discharge: > 48 hours
Subjective/Interval History
-
Date of Service: February 04, 2024
Objective Data
-
Labs:
Laboratory Results
02/04/24
04:18
WBC 13.1 H
Hgb 9.5 L
Hct 29.3 L
Plt Count 241
Sodium 145
Potassium 4.3
Chloride 110 H
Carbon Dioxide 27
BUN 54 H
Creatinine 1.5 H
Glucose 43 L*
Calcium 6.9 L*
Vital Signs:
Vital Signs
Temp Pulse Resp BP Pulse Ox
37.0 C 55 18 114/55 99
02/04/24 07:00 02/04/24 06:00 02/04/24 06:00 02/04/24 07:47 02/04/24 06:00
I&O
02/03/24 02/04/24 02/05/24
06:59 06:59 06:59
Intake Total 3672.0 / 3808.1 3443.0 / 3661.6 218.6 / 218.6
Output Total 3725 / 3845 2115 / 2115
Balance -53.0 / -36.9 1328.0 / 1546.6 218.6 / 218.6
Review of Systems
-
Unable to obtain full review of systems at this time due to: Patient Intubation
Physical Exam
-
General: Well Developed, Well Nourished, Respiratory Distress, Intubated and Appears Chronically Ill
HEENT: Normocephalic, Atraumatic, Nose Appears Normal, Ears Appear Normal and Oxygen (on vent)
Respiratory: Clear to Auscultation and Non Labored Respirations; Negative Accessory Resp Muscle Use
Cardiac: Regular Rhythm and S1/S2
GI: Soft, Nontender, Nondistended and Normal Bowel Sounds
Genito-urinary: Street
Musculoskeletal: Other (L foot in wound dressing, see wound care note)
Skin: Warm and Dry
Neuro: Sedated
Data Reviewed
-
Diagnostic Radiology: Image personally visualized and interpreted and Report Reviewed by me
CT Scan: Report Reviewed by me
Labs: Labs Reviewed by me
[2024-02-04 08:10] LABS: Glucose - Point of Care 126 mg/dl (70-99)
[2024-02-04] MEDS: DESENEX/MITRAZOL/ZEASORB 1 APPLIC TOPICAL ×2 (08:23→21:21)
[2024-02-04] MEDS: CALCIUM GLUCONATE 290 MG IV (08:43)
--- NOTE | 2024-02-04 09:22 | W.PN.ID1 ---
Date of Service
Date of Service: February 04, 2024
Today's Communication
- start cefazolin and per tube metronidazole
- will require a 6 week course of IV antibiotics (through 03/09/24)
Risks of treatment failure for calcaneal osteomyelitis relatively high, nevertheless agree with attempts at foot salvage which impacts quality of life. Pleased that Dm2 under control, patient is not an active smoker and has had revascularization.
Assessment / Plan
Osteomyelitis of the L heel
Left heel ulcer with wet gangrene s/p debridement to bone
Shock - resolved
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
RAUL on CKD
AMS
Class II/III obesity
- 01/27 single blood culture NGTD; 01/30 blood cultures x2 no growth to date
- 01/28 tissue culture with MSSA, no anaerobic culture done
- note nephrology concern for possible need for HD - will avoid nephrotoxic medications/medication combinations
- start cefazolin and per tube metronidazole
- will require a 6 week course of IV antibiotics (through 03/09/24)
Risks of treatment failure for calcaneal osteomyelitis relatively high, nevertheless agree with attempts at foot salvage which impacts quality of life. Pleased that Dm2 under control, patient is not an active smoker and has had revascularization.
Patient is critically ill on the vent
Chief Complaint
-: Other (wet gangrene s/p debridement; osteomyelitis)
Subjective / Review of Systems
afebrile
pressors weaned off overnight
hypoglycemia this am
Vital Signs / Physical Exam
Vital Signs
Vital Signs
Temp Pulse Resp BP Pulse Ox
98.6 F 55 18 114/55 96
02/04/24 07:00 02/04/24 06:00 02/04/24 06:00 02/04/24 07:47 02/04/24 08:03
Physical Exam
Constitutional: No Acute Distress
Cardiovascular: Regular Rate and S1/S2; Negative Murmur or Rub
Pulmonary: Clear and Symmetric; Negative Wheezes or Rales
Gastrointestinal: Soft, Non Tender, Non Distended and Normal Bowel Sounds
Skin: Warm and Dry; Negative Rash or Jaundice
Wound: Other (wound itself, no odor, no purulence no drainage; bruising of skin around the wound without surrounding erythema)
Objective Data
Lab Data
Lab Results
02/04/24 04:18
02/04/24 04:18
ESR 95 mm/hour (0-20) H 01/28/24 07:14
PT 27.4 Sec (11.4-14.6) H 01/31/24 08:53
INR 2.50 01/31/24 08:53
APTT Cancelled 02/03/24 10:45
Estimated Creat Clear 50 ml/min 02/04/24 04:18
Lactic Acid 1.1 mmol/L (0.7-2.0) 01/31/24 04:35
Total Bilirubin 1.3 mg/dl (0.2-1.3) D 01/31/24 04:35
AST 222 U/L (17-59) H 01/31/24 04:35
ALT 135 U/L (0-50) H 01/31/24 04:35
Alkaline Phosphatase 175 U/L (38-126) H 01/31/24 04:35
C-Reactive Protein > 270.00 mg/L (0.0-10.00) H 01/28/24 07:41
Most recent labs reviewed.
Chest X-Ray: Image Reviewed (my read: limitd due to positioning, possible R sided effusion, possible consolidation)
Micro Results:
01/31/24 12:12 Blood Culture - Preliminary
Blood/Venous No Growth in 72 hours- Final report to follow
01/31/24 11:15 Blood Culture - Preliminary
Blood/Venous No Growth in 72 hours- Final report to follow
01/28/24 12:25 Blood Culture - Final
Blood/Venous No Growth - Final Report
01/29/24 15:30 Tissue Culture - Final
Foot - Left S aureus-Methicillin Sensitive
Gram Stain - Final
01/28/24 14:04 MRSA Screen - Final
Nose No Methicillin Resistant Staphylococcus aureus isolated.
--- NOTE | 2024-02-04 09:58 | PTCARENOTE ---
recd 0715 handoff in room, gtts verified, ETT to vent tolerating current settings. oral care, nods yes/no, requires encouragement to open eyes. turned and positioned for comfort. pt specifically shakes head no to query of pain, nods head yes to
anxiety, med as noted with tylenol and risperidone per MD order. Seen by Dr. Marcano and Tiana. insulin gtt off per MD order. TF continue. art line zero and flori, positional, line removed per discussion with Dr. Montiel. pressure held x 15 min
ultimately, initially small ooze. no hematoma. rest of assessment as documented. family present. Dr. Montiel speaking with pt about goals of care, pt did shake head no to ever wanting trach; family reports pt is depressed and pts has medical
POA and they are much in support of trach if it becomes necessary. Support given, reassured no timeline and no decision urgently needed but good to have discussions ahead of necessity. positioned for comfort. less restless after oral tylenol for
CPOT score.
[2024-02-04] MEDS: ANCEF 10 IV ×2 (10:07→17:31)
--- NOTE | 2024-02-04 10:11 | VATNOTE ---
Vat rounds noted left hand +2 edema. Primary RN made aware. Recommended us of the left arm to R/O DVT.
[2024-02-04 11:57] LABS: Glucose - Point of Care 241 mg/dl (70-99)
[2024-02-04] MEDS: NOVOLOG FLEXPEN-MODERATE RESISTANCE 3 UNITS SC (11:58)
--- NOTE | 2024-02-04 14:01 | PTCARENOTE ---
tolerated 2hr 15 min wean, then RR elevated, slightly diaphoretic, returned to previous settings with relief. turned, mod brown BM, positioned for comfort, resting when observed.
[2024-02-04] MEDS: FLAGYL 500 MG TUBE (15:17)
--- NOTE | 2024-02-04 16:30 | PTCARENOTE ---
much more alert, calmer, denies need for pain meds. positioned for comfort. incont small loose BM.
[2024-02-04] MEDS: LIPITOR 80 MG PO (17:31)
[2024-02-04] MEDS: NOVOLOG FLEXPEN-MODERATE RESISTANCE 9 UNITS SC (17:43)
[2024-02-04 17:52] LABS: Glucose - Point of Care 368 mg/dl (70-99)
--- NOTE | 2024-02-04 18:40 | PTCARENOTE ---
visiting with family, interactive, calm, does gesture with hands but tolerating vent settings and nods yes to question about being able to sleep when unstimulated.
--- NOTE | 2024-02-04 21:12 | PTCARENOTE ---
Pt. remains Intubated/Sedated.
Sedation managed by DEX gtt, see titration flowsheet.
Remains off Norepi gtt, normotensive.
No vent changes from day team.
[2024-02-04] MEDS: LANTUS 0.05 UNITS SC (21:20)
[2024-02-04] MEDS: SUBLIMAZE 50 MCG IV (22:39)
--- NOTE | 2024-02-04 23:41 | PTCARENOTE ---
No change in pt. assessment.
See worklist flowsheets for further details.
[2024-02-05] VITALS (32 sets, daily range): BP systolic 98–142; BP diastolic 48–86; PULSE 2–123; BMI 39.5
[2024-02-05 00:17] LABS: Glucose - Point of Care 392 mg/dl (70-99)
[2024-02-05] MEDS: SUBLIMAZE 50 MCG IV (00:29)
[2024-02-05] MEDS: FLAGYL 500 MG TUBE ×3 (00:30→16:47)
[2024-02-05] MEDS: NOVOLOG FLEXPEN-MODERATE RESISTANCE 9 UNITS SC ×2 (00:32→05:54)
[2024-02-05] MEDS: ANCEF 10 IV ×3 (03:36→18:10)
[2024-02-05] MEDS: PRECEDEX 100 IV (03:36)
[2024-02-05 03:52] LABS: Hematocrit 29.9 % (39.0-52.0); Hemoglobin 9.5 g/dL (13.0-18.0); Mean Corp Hgb Conc. 31.8 g/dL (33.0-37.0); Mean Corpuscular Hgb 26.5 pg (27.0-31.0); Mean Corpuscular Volume 83.5 fL (80.0-94.0); Mean Platelet Volume 11.1 fL (7.4-10.4); Platelet Count 233 10^3/uL (130-400); Red Blood Cell Count 3.58 10^6/uL (4.70-6.10); Red Cell Dist. Width 19.9 % (11.5-14.5); White Blood Cell Count 11.7 10^3/uL (4.8-10.8)
[2024-02-05 04:19] LABS: Blood Urea Nitrogen 62 mg/dl (9-20); Calcium 7.4 mg/dl (8.4-10.2); Carbon Dioxide 30 mmol/L (22-30); Chloride 107 mmol/L (98-107); Estimated Creatinine Clearance 50 ml/min; Glucose 415 mg/dl (70-99); Potassium 4.9 mmol/L (3.5-5.1); Sodium 145 mmol/L (135-145); Triglycerides 150 mg/dl (10-149); eGFR 48.25
[2024-02-05] MEDS: NOVOLOG FLEXPEN 10 UNITS SC (04:36)
--- NOTE | 2024-02-05 05:10 | PTCARENOTE ---
Pt. had period of bradycardia as low as 35, rebounded quickly back to mid 50s AFIB. ICU CRISTAL notified. Dex titrated down.
--- NOTE | 2024-02-05 05:46 | PTCARENOTE ---
pt. gina down to 26, rebounded, dex turned off icu connie notified, new sedation PRN orders placed.
[2024-02-05 05:55] LABS: Glucose - Point of Care 392 mg/dl (70-99)
[2024-02-05] MEDS: DESENEX/MITRAZOL/ZEASORB 1 APPLIC TOPICAL (08:03)
[2024-02-05] MEDS: MIRALAX TUBE (08:04)
[2024-02-05] MEDS: NSS (PRESERVATIVE FREE) 10 ML IV (08:05)
[2024-02-05] MEDS: PROTONIX IV 40 MG IV (08:05)
[2024-02-05] MEDS: LASIX 40 MG PO (08:06)
[2024-02-05] MEDS: LOW STRENGTH ASPIRIN 81 MG TUBE (08:06)
[2024-02-05] MEDS: ELIQUIS 5 MG PO ×2 (08:06→21:05)
[2024-02-05] MEDS: SODIUM BICARBONATE 650 MG TUBE (08:06)
--- NOTE | 2024-02-05 08:11 | W.PN.CD ---
Today's Communication / Plan
-
SBT per pulmonary.
GDMT when hemodynamics will tolerate.
Continue diuresis.
Repeat echocardiogram to reassess LV function.
When extubated, restart metoprolol succinate 25 mg daily.
Impression / Plan
-
Impression/Plan: 73 y/o male with HTN, HLD, IDDM, COPD, persistent atrial fibrillation on apixaban, CAD with ICMO and PAD with prior LSFA endovascular intervention admitted with non-healing left foot ulcer/wet gangrene complicated by sepsis now s/p
left heal debridement, subsequently complicated by VDRF and hypotension requiring pressor support.
#VDRF/HFrEF
-Acute on chronic.
-Weight appears close to dry weight.
-Agree with transitioning to PO diuretics. Continue diuresis - if weight does not fall or rises, would increase PO dose or convert back to IV dose.
-Vent management per pulmonary.
-Daily SBT.
-GDMT as hemodynamics will permit.
#Left heal wet gangrene/septic shock
-Improving. Shock resolved, now severe sepsis (evidence of end organ damage).
-S/P left heal debridement.
-Continue antibiotics per ID.
-No current plans for further surgical management.
#Ischemic cardiomyopathy
-Chronic.
-LVEF = 35 to 40% by echocardiogram, 12/12/2023.
-GDMT as hemodynamics will allow.
#Atrial fibrillation
-Persistent. Currently in AF with RBBB (not new).
-Rate has increased as he is more awake and wants to be extubated. When extubated, restart metoprolol succinate 25 mg daily.
-CHADS2-Vasc = 6 (CHF, HTN, Age x2, DM, vascular disease).
-Therapeutic anticoagulation with apixaban.
#Coronary artery disease
-Chronic, stable.
-Prior history of DC. Chronically occluded LAD.
-Continue ASA.
#RAUL
-Acute on chronic, improving.
-Nephrology following.
#Anemia
-Chronic, stable.
Critical Care Time = 45 minutes.
Subjective/Interval History:
Patient has failed SBT on multiple days. Pulm notes state that he would not want a tracheostomy.
Patient in AF, bradying down to the 20-30's.
Precedex discontinued.
Weight stable at 111 kg (previously documented dry weight).
Respiratory rate elevated (~30 bpm).
SaO2 = 98% on FiO2 of 40%.
EKG shows AF with RBBB, rate controlled off of medication.
Creatinine down to 1.5.
DATA:
Transthoracic Echocardiogram, 12/12/2023:
CONCLUSIONS
Moderately reduced left ventricular systolic function.
Estimated left ventricular ejection fraction is 35-40% .
Wall motion analysis is limited due to image quality.
Mild mitral regurgitation.
Compared to the previous report 12/12/2023 findings are similar no significant
change previously estimated ejection fraction 35%.
Cardiac Catheterization, 09/13/2023:
CONCLUSIONS:
1. Right dominant circulation with a 50% lesion in the distal third of the RPDA, a diffusely diseased, small first obtuse marginal, a 30% lesion in the mid ramus, a 40% lesion in the origin of the first diagonal and a chronic total occlusion of the
mid LAD (known since cardiac catheterization in 1999).
2. Normal filling pressures (LVEDP = 10 mmHg, PCWP = 13 mmHg at 105.7 kg).
3. Severely impaired cardiac function (cardiac index = 1.36 L/min/m�, a VO2 difference 8.63 volume percent).
4. Mild precapillary pulmonary hypertension (mean PA pressure = 23 mmHg, PVR = 3.44 Moser units).
5. Significantly elevated peripheral vascular resistance (1787 dynes*seconds*cm^5).
Physical Exam
Vital Signs/Labs
Vital Signs
Temp Pulse Resp BP Pulse Ox
36.7 C 92 31 101/54 99
02/05/24 07:40 02/05/24 07:49 02/05/24 07:49 02/05/24 05:00 02/05/24 07:49
02/03/24 02/04/24 02/05/24
11:59 11:59 11:59
Actual Weight 110.6 kg 110.8 kg 111 kg
02/05/24 03:31
02/05/24 03:31
PT 27.4 Sec (11.4-14.6) H 01/31/24 08:53
INR 2.50 01/31/24 08:53
APTT Cancelled 02/03/24 10:45
Magnesium 2.2 mg/dl (1.6-2.3) 02/01/24 03:04
Triglycerides 150 mg/dl (10-149) H 02/05/24 03:31
01/31/24
09:09
Idi-S-Eickmazpebk Pept [id number]
Physical Exam
Constitutional: No acute distress and Comfortable
EENT: Anicteric and Moist mucous membranes
Cardiovascular: Rhythm/rate is irregular, S1S2 is normal, Murmur/rub/gallop absent and Other (Distant heart sounds.)
Respiratory: Other (Intubated. Breath sounds decreased throughout.)
GI: Soft, Distention absent, Flat and Non tender
Neuro/Psych: Alert, Oriented and Other (Intubated but awake and alert. He wants to be extubated.)
Data Reviewed
-
Date of Service: February 05, 2024
Medical Decision Making: Reviewed Test Results, Independent Historian Assessment and Test Interpretation
EKG: Tracing Personally Visualized and interpreted and Report Reviewed by me
Echo: Tracing Personally Visualized and interpreted and Report Reviewed by me
X-Ray/CT/US/MRI/NUC/PET: Image Personally Visualized and interpreted and Report Reviewed by me
Medical Tests (PFT, Pathology etc): Image Personally Visualized and interpreted and Report Reviewed by me
Labs: Labs Ordered by me
Old Records: Reviewed
--- NOTE | 2024-02-05 08:28 | W.PN.INTV ---
Today's Communication / Plan
Recommendations
SBT today with plans to extubate to BiPAP and then continue with BiPAP with sleep and prn during the day
Hold tube feeds while on SBT
Consult CRIMINAL JUSTICE PROGRAM DIRECTOR
Antibiotics as per ID
Diuresis as per nephrology
Consult diabetic HUMAN SERVICES WORKER and continue with basal�bolus SQ insulin with goal BG 140�180
Remains full code
Continue with ICU level of care
Assessment
-
Patient is a 73-year-old male with previous history of hypertension, hyperlipidemia, CHF admitted to on 01/28/2024 for nonhealing left heel wound. He notes that he had a blister that was broken up and on his left heel and was prescribed a
topical antibiotic which did not improve his symptoms. Vascular was consulted and due to progressive lethargy, there is concern for ongoing sepsis. Underwent urgent debridement of heel on 01/29/2024 and transferred postoperatively to ICU.
Impression:
Unresponsiveness, acute hypoxic respiratory failure status post intubation 01/30/24
Acute on chronic congestive heart failure exacerbation with reduced ejection fraction
Wet gangrene of the left heel s/p excisional debridement through bone with lavage and irrigation 01/29/2024 - wound Cx growing MSSA
Nonhealing left heel wound
Leukocytosis
RAUL, creatinine 1.9 (Cr baseline: approx. 1.2-1.3)
Hyponatremia - resolved
DM type II c/b hyperglycemia (HbA1C: 6.4 on 01/29/2024)
Conditions present prior to admission
History of heart failure, ICM worsened LVEF at 30-35% - TTE 09/11/23
Hypertension
Hyperlipidemia
Morbid obesity, BMI 40.4
Left anterior fascicular block, chronic
History of persistent atrial fibrillation on Eliquis
Coronary disease with history of IN 20+ years ago
History of TIA
Severe sleep apnea, HST AHI 61/78%, failed CPAP 2021
Diabetes
Chronic DJD, back pain
[id number], quit
Chronic cough, COPD/RLD on PFTs, follows at [facility]-Dr Montiel/Chanelle
PAD
Plan
- Continue with spontaneous breathing trial this morning with plans to extubate
- Given that he has acute cardiogenic pulmonary edema will extubate to BiPAP for 2 hours before transitioning off to nasal cannula and then will continue with BiPAP with sleep and prn during the day
- Check ABG before extubation
- Keep SpO2 >90-94%
- Turn off all sedation during SBT; can use low-dose Precedex drip if needed
CT head and neck obtained on 01/30/2024 --> bilateral carotid disease noted
Nephrology recs appreciated
- Continue PO lasix and trend sCr, I/O and UOP
Troponin peaked at 0.110 � cardiology consulted and recommendations appreciated
Cardiac history as noted above
Transthoracic echo from 12/12/2023 shows LVEF 35-40% --> echo repeated today showing LVEF 35% with severe hypokinesis of the mid�distal anterior, anteroseptal and apical dahl consistent with a mid LAD infarct; severe LAE
Patient follows cardiology (Kim)
He underwent LHC and RHC on 09/13/2023 showed reduced CI at 1.36 and low PCWP at 13 with slightly elevated PADP at 17mmhg with mild pHTN (mPAP: 23mmHg)
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
Rate control with goal HR<110bpm
Replete K>4, Mg>2
Unresponsiveness status post intubation 01/29 --> he is now awake and alert and tolerating SBT with plans to extubate
High risk for prolongation given conditions -- COPD, RLD, morbid obesity, CHF, untreated severe ERICK, noncompliance
CTA chest from 01/30/2024 shows large bilateral pleural effusions with bilateral mosaic attenuation likely due to interstitial edema, without acute PE
Discussed with family that if he does not make progress, need to discuss GOC-he has refused trach
Hold tube feeds in prep for extubation
Once extubated, check CRIMINAL JUSTICE PROGRAM DIRECTOR eval
GI ppx if indicated--on PPI
Aspiration precautions
Non healing would of LLE, on abx for coverage, concern for sepsis --> currently on Ancef + flagyl since 02/03 s/p Unasyn and meropenem
s/p debridement 01/29/24, tissue culture grew MSSA; wound vac
Blood culture negative
Vasc surgery saw pt on 02/01 --> patient is at high risk for limb loss due to extent of heel wound + bone exposure; no acute need for surgical intervention at this point
Creat elevated, monitor function/IOs
Nephrology consulted and recommendations appreciated
Renally dose all meds/Abx; avoid nephrotoxic agents
Diuresis with lasix 40mg daily
CBC stable
Transfuse if needed to keep Hb >7, platelets >20k
DVT ppx: Eliquis
PT/OT when able
Goal BG 140-180
Consult Diabetic HUMAN SERVICES WORKER
May need insulin gtt if have difficulty with BG control
Continue basal-bolus SQ insulin for now
Patient remains critically ill; continue with ICU level of care.
Diagnostic Data
CXR 02/05/2024:
1. Nasrin is not particularly well seen on this projection. Tip of the endotracheal tube likely approximately 1.5 cm above the nasrin, similar to prior. Enteric catheter and left upper extremity PICC in position.
2. Low lung volumes. Bilateral small pleural effusions and adjacent atelectasis/consolidation.
Chest X-Ray: 01/28/24- No acute cardiopulmonary process.
09/14/23- No active cardiopulmonary disease.
CTA Chest 01/30/2024:
Markedly limited study, as detailed above, with no findings to suggest bilateral CENTRAL pulmonary embolism.
Large right lower lobe consolidation and moderate right pleural effusion.
Left lower lobe subsegmental atelectasis and small left pleural effusion.
Groundglass opacity and mild septal thickening suggesting mild to moderate pulmonary edema.
Endotracheal tube with tip in trachea above the nasrin. No pneumothorax.
CT Scan: CHEST 10/18/22- Stable small perifissural pulmonary nodules along the left major fissure. Stable mild small reticulonodular interstitial opacities in the bilateral upper lobes, right greater than left.
CAP 05/04/22- No acute pathology of the chest, abdomen and pelvis identified. Few left upper and lower lobe pulmonary nodules. Bilateral small renal cysts. Bilateral too small to characterize hypodense renal lesions, likely benign cysts. Moderate
fecal material throughout the colon. Mild diverticulosis.
Echo: 12/12/23- Moderately reduced left ventricular systolic function. Estimated left ventricular ejection fraction is 35-40% . Wall motion analysis is limited due to image quality. Mild mitral regurgitation.
Compared to the previous report 12/12/2023 findings are similar no significant change previously estimated ejection fraction 35%
PFT's: 03/29/23 FEV1 1.91 L 77%, FVC 2.57 L 75%, ratio 74. TLC 3.63 L 59%, DLCO 60%--moderately severe restriction, mild diffusion impairment
Reports and relevant images were personally reviewed.
-----
Critical care statement: A total of 38 minutes of critical care time was provided for this patient today. This includes management of unstable vital signs, evaluation of the patient at bedside, reviewing the patient's pertinent medical records
including radiographs, microbiology, laboratory evaluations, and discussion with primary team, consultants, pharmacy, nutrition, physical therapy, case management, charge nurse, critical care nursing, and respiratory therapy.
Subjective Dataa
Subjective Data
Date of Service:
Date of Service: February 05, 2024
Chief Complaint: Dandy Operator Follow Up
Subjective:
Patient was seen and evaluated this morning and he remains intubated. On spontaneous breathing trial with PS: 8, PEEP: 5. HR 107, BP 129/75 and SpO2 100% on FiO2 40%. Off precedex since this AM. He is awake and following commands. ETT has white
secretions that are moderate and are thick. He has a strong cough. Was on insulin gtt yesterday and is now off. Daughter, Qi, at bedside and all questions were answered.
Review of Systems
General: Other (Unable to obtain as patient is intubated)
Objective Data
Data Reviewed
Vital Signs / I&O / Oxygen:
Vital Signs
Temp Pulse Resp BP Pulse Ox
98.1 F 89 31 112/65 99
02/05/24 07:40 02/05/24 08:06 02/05/24 07:49 02/05/24 08:06 02/05/24 07:49
Intake and Output
02/04/24 02/05/24 02/06/24
06:59 06:59 06:59
Intake Total 3443.0 / 3661.6 3076.3 / 3076.3
Output Total 2115 / 2115 2215 / 2215
Balance 1328.0 / 1546.6 861.3 / 861.3
SaO2 [CPAP/PSV] 99
SaO2 [A/C] 100
SaO2 99
Nasal Cannula flow liters per 6
minute
Physical Exam
General: Respiratory Distress (negative), Comfortable, Chills (negative), Sweats (negative) and Other (obese male in NAD; intubated)
HEENT: Normocephalic, Anicteric and Other (ETT in place)
Cardiovascular: S1-S2 and Peripheral Edema (negative)
Respiratory: Wheeze (negative), Crackles (Bilateral), Rhonchi (negative), Non-Labored Respirations, Stridor (negative) and ET Tube (Mechanical breath sounds heard bilaterally)
GI: Soft, Non Distended and Non Tender
Neurology: Awake and Alert
Skin: Warm, Dry, Cyanosis (negative) and Jaundice (negative)
Labs/Micro/Reports
Lab Data
02/05/24 03:31
02/05/24 03:31
Microbiology
01/31/24 12:12 Blood/Venous Blood Culture - Preliminary
No Growth in 4 days- Final report to follow
01/31/24 11:15 Blood/Venous Blood Culture - Preliminary
No Growth in 4 days- Final report to follow
01/28/24 12:25 Blood/Venous Blood Culture - Final
No Growth - Final Report
--- NOTE | 2024-02-05 08:49 | W.PN.ID1 ---
Date of Service
Date of Service: February 05, 2024
Today's Communication
- c/w cefazolin and per tube metronidazole
- will require a 6 week course of IV antibiotics (through 03/09/24)
Assessment / Plan
Osteomyelitis of the L heel
Left heel ulcer with wet gangrene s/p debridement to bone
Shock - resolved
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
RAUL on CKD
AMS
Class II/III obesity
- 01/28 tissue culture with MSSA, no anaerobic culture done
- c/w cefazolin and per tube metronidazole
- will require a 6 week course of IV antibiotics (through 03/09/24)
- can place PICC when approaching dc, script for OPAT when approaching dc.
Risks of treatment failure for calcaneal osteomyelitis relatively high, nevertheless agree with attempts at foot salvage which impacts quality of life. Pleased that Dm2 under control, patient is not an active smoker and has had revascularization.
Patient remains critically ill on the vent
Chief Complaint
-: Other (calceneal osteomyelitis, L foot)
Subjective / Review of Systems
afebrile
weaned off of pressors yesterday
bradycardia overnight - sedation weaned
corase breath sounds, scant fluid suctioned
Vital Signs / Physical Exam
Vital Signs
Vital Signs
Temp Pulse Resp BP Pulse Ox
98.1 F 89 31 112/65 99
02/05/24 07:40 02/05/24 08:06 02/05/24 07:49 02/05/24 08:06 02/05/24 07:49
Physical Exam
Constitutional: No Acute Distress, Chronically Ill and Obese
Cardiovascular: Regular Rate and S1/S2; Negative Murmur or Rub
Pulmonary: Symmetric, Coarse and Non Labored; Negative Wheezes or Rales
Gastrointestinal: Soft, Non Tender, Non Distended and Normal Bowel Sounds
Skin: Warm and Dry; Negative Rash or Jaundice
Wound: Other (deferred dressing takedown, clean, dry, intact)
Objective Data
Lab Data
Lab Results
02/05/24 03:31
02/05/24 03:31
ESR 95 mm/hour (0-20) H 01/28/24 07:14
PT 27.4 Sec (11.4-14.6) H 01/31/24 08:53
INR 2.50 01/31/24 08:53
APTT Cancelled 02/03/24 10:45
Estimated Creat Clear 50 ml/min 02/05/24 03:31
Lactic Acid 1.1 mmol/L (0.7-2.0) 01/31/24 04:35
Total Bilirubin 1.3 mg/dl (0.2-1.3) D 01/31/24 04:35
AST 222 U/L (17-59) H 01/31/24 04:35
ALT 135 U/L (0-50) H 01/31/24 04:35
Alkaline Phosphatase 175 U/L (38-126) H 01/31/24 04:35
C-Reactive Protein > 270.00 mg/L (0.0-10.00) H 01/28/24 07:41
Most recent labs reviewed.
Micro Results:
01/31/24 12:12 Blood Culture - Preliminary
Blood/Venous No Growth in 4 days- Final report to follow
01/31/24 11:15 Blood Culture - Preliminary
Blood/Venous No Growth in 4 days- Final report to follow
01/28/24 12:25 Blood Culture - Final
Blood/Venous No Growth - Final Report
01/29/24 15:30 Tissue Culture - Final
Foot - Left S aureus-Methicillin Sensitive
Gram Stain - Final
01/28/24 14:04 MRSA Screen - Final
Nose No Methicillin Resistant Staphylococcus aureus isolated.
--- NOTE | 2024-02-05 09:00 | PTCARENOTE ---
Rec'd pt at 0745 resting in bed. Opens eyes easily to verbal stimuli- nods head, mouthes words, and gestures to communicate. Nods head no to having pain- just wants freqent repositioning. Skin is pale wm and dry. L heel with dressing that is D+I.
Prevalon boots on bilaterally. + pulses. PT and DP pulses bilat with the doppler. Legs are warm. SKin overall is wm and dry. Perineum-toward rectum is excoriated/open with pink wound bed. Respirs are intact on the vent- changed from AC settings to
CPAP 5/PS 8- Currently TV 270-370 and RR 24-36. Sats are 99%. BS are coarse throughout. Suctioned for mod amt thick whitish secretions and mod amt of clear oral secretions. #8 Ett retaped at the 25 cmm cole- center of the mouth. Monitor AFib in the
90-115 range. VS as documented. TR bilat hand edema. Denies chest pain. Abd is round/obese + BS. Tolerating Osmolite 1.2 tube feeds at 65 ml/hr with 25 ml/hr flush via L nare small bore feeding tube. Meds given. Street intact for yellow urine. DL
picc capped L arm. Capped ints intact R upper arm and R lower arm. Skin and mouth care given. Turned and repositioned. Soft wrist restraints intact for pt safety as pt will tend to reach up at ETT and try to adjust tube. Plan of care reviewed with
pt and family.
--- NOTE | 2024-02-05 10:30 | PTCARENOTE ---
Per MD request- tube feeds placed on hold in anticipation of possible extubation. Dr. Sommers updated. Pt anxious at intervals but does calm with reassurance. Anxious to get ETT out. On Bipap currently CPAP 5/PS 5 with RR 28-38 and TV in the 300's.
On bedpan and incont of a mod amt of soft brown stool. La Nena care given. Perineum with MASD-pink wound bed. Calazime applied. Repositioned. frequently.
[2024-02-05 10:46] LABS: B.E. 1.7 mmol/L; HCO3 26.6 mmol/L (21-28); O2 Saturation % 98.1 % (94-98); PCO2 42 mmHg (35-48); PO2 87 mmHg (83-108); pH 7.41 (7.35-7.45)
--- NOTE | 2024-02-05 11:32 | W.PN.NEPH.PH ---
Today's Communication / Plan
-
cont po lasix
d/c po bicarb
labs in am
Assessment/Plan
-
Impression:
RAUL
CKD 3b (1.6)
Metabolic acidosis
Left plantar foot ulceration with gangrenous changes s/p debridement
Ischemic cardiomyopathy
History of hypertension
History of diabetes
Profound peripheral vascular disease
Diabetes
Plan:
RAUL:in setting of left foot infection , however had contrast exposure on 01/29
old UA bland, keep sosa -non oliguric via sosa
cr now baseline and non oliguric
cont PO lasix , repeat echo per cards
BP soft off pressors
Holding Jardiance, metformin, spironolactone and KARL inhibitor at this time
resolved met acidosis, d/c po bicarb
On TF, tolerating- on hold for possible extubation
no angiogram planned currently
dose meds renally, abx per ID
monitor hyperglycemia
d/w
31 minutes critical care time spent with patient
-
-
Date of Service: February 05, 2024
CC / HPI / ROS
-
Chief Complaint:
RAUL with CKD
History of Present Illness:
cr stable 1.5
non oliguric with sosa
no fever, sodium normal, bicarb better at 30
Hemodynamically stable
Hypocalcemia improving
BG high
Review of Systems:
intubated, Fio2 40%
wt no change
no fever
Labs
-
Labs:
WBC 11.7 10^3/uL (4.8-10.8) H 02/05/24 03:31
RBC 3.58 10^6/uL (4.70-6.10) L 02/05/24 03:31
Hgb 9.5 g/dL (13.0-18.0) L 02/05/24 03:31
Hct 29.9 % (39.0-52.0) L 02/05/24 03:31
Plt Count 233 10^3/uL (130-400) 02/05/24 03:31
Sodium 145 mmol/L (135-145) 02/05/24 03:31
Potassium 4.9 mmol/L (3.5-5.1) 02/05/24 03:31
Chloride 107 mmol/L (98-107) 02/05/24 03:31
Carbon Dioxide 30 mmol/L (22-30) 02/05/24 03:31
BUN 62 mg/dl (9-20) H 02/05/24 03:31
Creatinine 1.5 mg/dL (0.7-1.3) H 02/05/24 03:31
eGFR 48.25 02/05/24 03:31
Glucose 415 mg/dl (70-99) H 02/05/24 03:31
Calcium 7.4 mg/dl (8.4-10.2) L 02/05/24 03:31
Phosphorus 4.0 mg/dl (2.5-4.5) 01/31/24 04:35
Lda-U-Jvsxbvwnflf Pept 42790 pg/ml 01/31/24 09:09
Albumin 2.6 g/dl (3.5-5.0) L 01/31/24 04:35
Physical Exam
-
Vital Signs:
Vital Signs
Temp Pulse Resp BP Pulse Ox
99.1 F 108 27 123/48 99
02/05/24 11:15 02/05/24 11:00 02/05/24 11:00 02/05/24 11:00 02/05/24 11:00
Cardiovascular:: Regular rate and rhythm
Lung Excursion:: Abnormal (intubated, decreased BS)
Abdomen:: Nontender and Soft
Extremity Edema:: None: Bilateral: (trace)
Sosa Catheter: Yes
--- NOTE | 2024-02-05 11:46 | PN.DE.MGMTRT ---
Insulin Management
- -
02/05/2024: Diabetes management Consult
73 years old male with multiple comorbidities admitted to the hospital on 01/27 with sepsis due to left foot plantar infected ulcer 2/2 diabetic foot ulcer and peripheral vascular disease. Diabetes consult requested on 02/04 for Hyperglycemia.
PMH: HTN, HLD, CAD, PVD, CHF, COPD and T2DM. Was taking Jardiance 10mg daily, Tresiba 45 units daily, metformin 1000mg BID and NovoLog 7-20 units AC. A1C 6.4%, Cr 1.5, eGFR 48.25
01/30 started on tube feeds contributing to Hyperglycemia. 02/01 was initiate on CC glycemic protocol, developed hypoglycemia on 02/03 while on insulin drip. Was transitioned off on 02/03 to SQ insulin- HS Lantus 5 units and moderate corrective only
by Dr. Marcano.
Glucose has remained elevated since transition, 241 to 415, requiring high doses 3-9 units of corrective insulin.
Pt received low dose Lantus 5 units @ HS, FBG 392 this AM.
He was just extubated and tube feeds are on HOLD. Noon time blood sugar is 262.
Will give 1 time dose of Lantus 15 units now and start HS dose of 15 units.
Cont moderate corrective insulin Q6 hrs while NPO. May tentatively get back on tube feeds today.
Will reassess once diet has been started and adjust insulin if needed.
Diabetes History
- -
Type of Diabetes: 2 requiring insulin
Pre-Admission Diabetes Regimen
02/05/24
03:31
Creatinine 1.5 H
Lab Results
Hemoglobin A1c 6.4 % (4.0-5.6) H 01/29/24 07:22
Insulin Pump Settings
IP Diabetes Regimen
02/04/24 02/04/24 02/05/24
11:46 17:41 00:05
Glucose
POC Glucose 241 H 368 H 392 H
02/05/24 02/05/24
03:31 05:43
Glucose 415 H
POC Glucose 392 H
Patient Education
--- NOTE | 2024-02-05 11:50 | PTCARENOTE ---
Pt is awake and following commands. Has tolerated CPAP 5/PS 5 since around 1030. Sats are running 98-99%. Pt anxious to get ETT out. ABG sent by resp therapy and resulted to Dr. Sommers. 1145- pt extubated to Bipap 12/5 +6L with sats of 93%. Pts
voice is hoarse. Tube feeds remain off currently. Wrist restraints removed once extubated. Call castellon in reach. Repositioned.
[2024-02-05] MEDS: FLUSH (NSS) 1 FLUSH IV (11:56)
[2024-02-05] MEDS: NOVOLOG FLEXPEN-MODERATE RESISTANCE 5 UNITS SC (12:03)
[2024-02-05 12:14] LABS: Glucose - Point of Care 262 mg/dl (70-99)
--- NOTE | 2024-02-05 13:00 | PTCARENOTE ---
ECHO done. Family at the bedside. Tolerating Bipap 12/5 +6L sats are 95%.
--- NOTE | 2024-02-05 13:19 | CM ---
CM following re: discharge planning.
Discussed in rounds, reviewed pt's chart, met with pt. Pt's spouse and daughter at bedside.
Pt extubated today to Bi-pap, continue supportive care. Per ID pt will need IV antibiotic treatment for up to 6 weeks, till 03/09/23.
PT and OT will evaluate the pt when clinically appropriate to determine a level of carte at discharge.
Both pt and his spouse and daughter are aware and a plan will be discussed closer to discharge. Per spouse and daughter have home infusion therapy at home might be the best option.
D/C plan: home with home infusion therapy vs SNF.
CM will follow with discharge plan updates as hospitalization progresses
--- NOTE | 2024-02-05 13:28 | W.PN.HOSP.TC ---
Addendum entered and electronically signed by Conrado Fernández MD 02/05/24 15:56:
Physical Exam
NAD, resting comfortably in bed able to wiggle feet, give thumbs up lift head off pillow
Scleral anicteric
Moist mucous membranes, endotracheally intubated, OGT with TF
No JVD
CTA bilateral
Normal S1-S2 no murmurs
Soft nontender nondistended bowel sounds active
No peripheral pitting edema
Moves extremities spontaneously
AAOx3
Assessment and Plan
Acute on chronic hypoxemic respiratory failure requiring mechanical ventilator
-Continue daily SAT SBT
-Continue minimal vent settings
-Extubate per critical care recommendations
-Goal RSBI for extubation less than 105
Severe sepsis
-Left foot plantar ulcer with osteomyelitis
-Family opted for salvage of the extremity to avoid amputation
-Long-term antibiotics for at least 6 weeks
-ID following
RAUL on CKD stage IIIb
-Improving
-Follow I's and O's
-Avoid nephrotoxic agents and hypotension
-Monitor urinary output
-Nephrology following
Acute on chronic HFrEF with EF of 30 to 35%, NYHA class IV
-Continue GDMT
-Diurese
-Cardiology following
-Monitor urinary output
-Monitor on telemetry
-Keep K greater than 4
-Keep magnesium greater than 2
Permanent atrial fibrillation
-Continue beta-misha
-Currently on heparin drip plan to transition to Eliquis when able to tolerate p.o.
Type 2 diabetes
-A1c 6.4
-Accu-Cheks
-Sliding scale
-Goal blood glucose 1 40-1 80
-Carb controlled diet/Glucerna will need to tolerate
Hyperglycemia
-Off insulin drip as was hypoglycemic
-On Osmolite as opposed to Glucerna
-Nutrition consulted
-Diabetes team following
-Increase Lantus, start short acting insulin and continue sliding scale
Original Note:
Today's Communication/Plan
-
Nutrition consult to change Osmolite to Glucerna.
Diabetes nurse practitioner consult for diabetes management
Spontaneous breathing trial and vent wean off per critical care
Continue antibiotics per ID.
Monitor I's and O's, weight, trend renal function.
Will continue to follow.
Assessment / Plan
Assessment / Plan
Assessment -73 Yo M with PMHx significant for peripheral vascular disease, CKD stage IIIb, CAD, permanent A-fib, TIA, hypertension, hyperlipidemia, insulin-dependent type 2 diabetes mellitus, with multiple comorbidities presented to the hospital
with sepsis due to left foot plantar infected diabetic foot ulcer with underlying PAD.
Plan -
Severe sepsis-
Secondary to diabetic left plantar foot ulcer with underlying peripheral vascular disease.
Status post sharp excisional debridement by vascular surgery team on 01/28, lactic acid levels on 01/29 at 5.4.
Left heel bone biopsy growing MSSA, patient was initially started on IV cefepime and vancomycin then transition to meropenem and vancomycin and then to Unasyn.
ID on board, appreciate inputs.
His Unasyn was discontinued yesterday and was switched to cefazolin and metronidazole.
Initial plan for staged revascularization procedure is on hold due to clinical instability and RAUL on CKD that resolved.
Shock-01/29.
Unclear etiology whether septic versus cardiogenic.
CT PE negative for pulmonary embolism, however there is some evidence for mild to moderate pulmonary [place] [address]. Elevated lactic acid levels at 5.4.
Lactic acid levels resolved the subsequent day on 01/30.
Off of Levophed, fentanyl, propofol.
Ventilator dependent respiratory failure-
Acute on chronic hypoxic respiratory failure.
CT chest evident for pulmonary edema.
Also history of PHTN, untreated, precapillary likely secondary to ERICK.
Patient is currently tolerating the spontaneous breathing trial well, off of fentanyl, propofol and Precedex.
Continue spontaneous breathing trial and if RSBI < 105, Wean off the ventilator per ICU.
Critical care on board, follow critical care recommendations.
AMS likely resolved, patient is awake and giving a thumbs up vs down if he has pain or other symptoms.
RAUL on CKD stage 3b
likely secondaryu to cardiorenal syndrome.
Cr down to 1.5, baseline is at 1.2 '
Continue to trends weights, I and O, and continue Lasix 40mg oral.
Patient is currently at his dry weight 111kgs.
Avoid nephrotoxic agents.
Renal on board, appreciate inputs.
Acute on Chronic HFrEF -
Likely secondary to sepsis in the setting of pre-existing CAD and heart failure.
Cardiology on board. Appreciate input
Most recent echocardiogram-09/26-EF 30 to 35%.
Continue GDMT as tolerated.
Peripheral vascular disease-
No plan for staged revascularization procedure due to clinical instability.
Patient is currently on Eliquis.
Status post left lower extremity arteriogram and stent to SFA, angioplasty to PT per vascular surgery in 09/26.
Permanent A-fib
On metoprolol.
[id number] score-Transitioned back to Eliquis from heparin.
Type 2 diabetes mellitus-
HbA1c at 6.4.
Kboapsyvo-Oyxuvug-57 units daily. Developed hypoglycemia yesterday on Tresiba, diabetes nurse practitioner consulted for diabetes education and management.
Patient is on Osmolite tube feeds, which could also cause blood sugar fluctuations.
Nutrition team consulted for transition of tube feeds to Glucerna.
Elevated troponins
Type II demand ischemia
Troponins trended down on 02/02.
Cardiology on board.
Previous history of coronary artery disease.
DVT prophylaxis-on Eliquis
CODE STATUS full code
Conditions ARMHOLE BASTER JUMPBASTING -
CAD-continue his home meds-aspirin.
Hypertension-continue lisinopril.
Hyperlipidemia-continue Lipitor.
TIA
Asthma
Morbid obesity
Hypoglycemia
Investigations -
Chest X-Ray:
02/05/24 -
As above, flip is not particularly well seen on this projection. Tip of the endotracheal tube likely approximately 1.5 cm above the flip, similar to prior. Enteric catheter and left upper extremity PICC in position.
Low lung volumes. Bilateral small pleural effusions and adjacent atelectasis/consolidation.
01/28/24- No acute cardiopulmonary process.
09/14/23- No active cardiopulmonary disease.
Abdomen X ray -
02/01/24- Nasogastric tube is seen with tip in the distal stomach. Study is otherwise stable.
CTA - 01/30/24 -
Scattered mild to moderate calcified plaque of the common carotid arteries, bilaterally. Bilateral bulb calcified plaque and calcified plaque at the ICA origin and proximal internal carotid arteries.
Distal left common carotid artery estimated luminal diameter reduction of 65%. Proximal left ICA estimated luminal diameter reduction of approximately 60%.
Proximal right ICA estimated luminal diameter reduction of approximately 50%.
Bilateral cavernous ICA calcified plaque with estimated luminal diameter reduction of less than 50%.
Normal variant absent right anterior cerebral artery A1 segment, with the A2 segment supplied by a patent anterior to be encasing artery.
Otherwise, no intracranial cerebral artery plaque, stenosis, occlusion, or aneurysm.
The vertebral arteries are patent. Patent basilar artery.
Moderate right and small left pleural effusion. Pulmonary parenchymal consolidation, right greater than left, atelectasis versus pneumonia. Mild superior mediastinal adenopathy.
CT Scan: CHEST 10/18/22- Stable small perifissural pulmonary nodules along the left major fissure. Stable mild small reticulonodular interstitial opacities in the bilateral upper lobes, right greater than left.
CAP 05/04/22- No acute pathology of the chest, abdomen and pelvis identified. Few left upper and lower lobe pulmonary nodules. Bilateral small renal cysts. Bilateral too small to characterize hypodense renal lesions, likely benign cysts. Moderate
fecal material throughout the colon. Mild diverticulosis.
Echo: 12/12/23- Moderately reduced left ventricular systolic function. Estimated left ventricular ejection fraction is 35-40% . Wall motion analysis is limited due to image quality. Mild mitral regurgitation.
Compared to the previous report 12/12/2023 findings are similar no significant change previously estimated ejection fraction 35%
PFT's: 03/29/23 FEV1 1.91 L 77%, FVC 2.57 L 75%, ratio 74. TLC 3.63 L 59%, DLCO 60%--moderately severe restriction, mild diffusion impairment
Anticipated Discharge: > 48 hours
Subjective/Interval History
-
Date of Service: February 05, 2024
Overnight, patient did well off of propofol and insulin drip. Patient's blood sugars yesterday morning in the a.m. but around 40 however when his insulin drip was discontinued. His insulin drip was held and patient is currently on Osmolite tube
feeds. Patient's blood sugar went up to 369 and 410. Overnight patient required 9 units of sliding scale insulin on top of his 5 units Lantus dose. Patient is currently off of Precedex drip and is tolerating the spontaneous breathing trial well
when seen in the a.m.
Objective Data
-
Labs:
Laboratory Results
02/05/24 02/05/24
03:31 10:32
WBC 11.7 H
Hgb 9.5 L
Hct 29.9 L
Plt Count 233
HCO3 26.6
Sodium 145
Potassium 4.9
Chloride 107
Carbon Dioxide 30
BUN 62 H
Creatinine 1.5 H
Glucose 415 H
Calcium 7.4 L
Vital Signs:
Vital Signs
Temp Pulse Resp BP Pulse Ox
99.1 F 110 23 108/63 92
02/05/24 11:15 02/05/24 13:00 02/05/24 13:00 02/05/24 13:00 02/05/24 13:00
I&O
02/04/24 02/05/24 02/06/24
06:59 06:59 06:59
Intake Total 3443.0 / 3661.6 3076.3 / 3141.3 410 / 410
Output Total 2115 / 2115 2215 / 2215 660 / 660
Balance 1328.0 / 1546.6 861.3 / 926.3 -250 / -250
Review of Systems
-
Unable to obtain full review of systems at this time due to: Patient Intubation and Patient Non-verbal
Physical Exam
-
General: No Apparent Distress and Comfortable
HEENT: Moist Mucous Membranes and Thrush
Respiratory: Wheezes, Rales and Crackles; Negative Rhonchi
Cardiac: S1/S2 and Irregular Rhythm; Negative Murmur, Rub, JVD, HJR or Gallop
GI: Soft, Nontender, Nondistended and Normal Bowel Sounds
Musculoskeletal: Other (b/l lower extremity pitting edema, scaling and excoriations of the feet, and )
Skin: Warm
Neuro: Awake and Alert
Psych: Calm
Data Reviewed
-
Diagnostic Radiology: Image personally visualized and interpreted, Report Reviewed by me and Discussed with Physician
MRI: Image personally visualized and interpreted, Report Reviewed by me and Discussed with Physician
Medical Tests (Nuc Med, Echo etc): Image personally visualized and interpreted, Report Reviewed by me and Discussed with Physician
Labs: Labs Reviewed by me, Discussed with Physician and Discussed with Nurse
Old Records: Reviewed
[2024-02-05] MEDS: LANTUS 0.15 UNITS SC ×2 (14:05→21:05)
[2024-02-05 14:14] LABS: Glucose - Point of Care 227 mg/dl (70-99)
--- NOTE | 2024-02-05 14:30 | PTCARENOTE ---
Pt tolerated Bipap and at 1400 changed over to NC at 6l with sats of 97%. Voice is hoarse and soft but understandable. Speech therapy in currently to see pt- Cleared for meds with puree and ice chips. Dr. Sommers updated and will adjust and restart
tube feeds
--- NOTE | 2024-02-05 14:43 | PTOTSP ---
Dysphagia Evaluation
Patient presents with signs concerning for pharyngeal dysphagia and possible aspiration, greatest with thin liquids. Suspect dysphagia is acute and secondary to recent extubation s/p prolonged intubation (01/29-02/04).
Recommend:
1. NPO (DHT in place)
2. Medication - whole and/or crushed in puree
3. Aspiration Risk Hydration Protocol - sparing ice chips after oral care with supervision
4. Oral care at least 3x daily
5. Dysphagia tx at the acute care level to determine if/when further instrumental swallowing assessment warranted and if patient able to initiate oral diet.
--- NOTE | 2024-02-05 15:30 | PTCARENOTE ---
Pt on the bedpan for a large amt of liquid and soft brown stool. [place] care and parital bath given. Street care redone.Shampoo done. Dressing change completed to L heel. as documented. Tissue is reddned with blackend areas. Edges are whitish and sl
ecchymotic. Top of foot is ecchymotic with some blister formation. Redressed with saline wet to dry dressing. Prevalon boots intact. Turned and repositioned. Mouth care given. Taking ice chips with no coughing noted. Tube feeds restarted at 20 ml/hr
with 25 ml/hr flush via L nare feeding tube. Pt does admit to some abd discomfort-did have air in his stomach- aspirated from feeding tube. Placement checked. Call castellon in reach.
--- NOTE | 2024-02-05 17:15 | PTCARENOTE ---
Repositoned. On bedpan again for large amt of liquid stool. [place] care given. Tolerating tube feeds. Tolerating 4l nc with sats of 99%. Asking for ice chips frequently. Taking few a time with no coughing noted. Call castellon in reach
[2024-02-05] MEDS: NOVOLOG FLEXPEN-MODERATE RESISTANCE 3 UNITS SC (18:09)
[2024-02-05] MEDS: LIPITOR 80 MG PO (18:10)
[2024-02-05 18:20] LABS: Glucose - Point of Care 209 mg/dl (70-99)
[2024-02-05] MEDS: ZOFRAN 4 MG IV (18:29)
--- NOTE | 2024-02-05 18:50 | PTCARENOTE ---
Pt had been resting. Frequently asks for ice chips but only given a few at a time sparingly. Oral care completed. Around 1820 with this RN in the room and daughter at the bedside pt stated ' I feel sick' and then immediately proceeded to vomit 3
times- a total of approx 300+ mls of greenish/yellow secretions over himself and bed linens. Zofran 4 mg IV given at 1830. During bath and linen change pt incont of a large amt of liquid brown stool. [place] care given and rectal trumpet placed to try
to limit excoriation to his skin. Pt admitted to feeling a little nauseated earlier 'for about 1 minute' then it subsided. States he felt better after vomiting. Did c/o his abd being uncomfortable earlier that also eased after he moved his bowels.
Tube feeds placed on hold - only 10 mls of residual and air aspirated. If nausea stays subsided will restart. Dr. Sommers updated. Call castellon in reach.
--- NOTE | 2024-02-05 20:05 | PTCARENOTE ---
Assumed care of pt. approx. 1900.
Extubated by day team, transitioned to 3L sp02 98-100%.
Episodes of emesis and large liquid bowel movements, FMS ordered.
See assessment flowsheets for further details.
[2024-02-05] MEDS: NSS (PRESERVATIVE FREE) 8 ML IV (21:05)
[2024-02-05] MEDS: PEPCID 10 MG IV (21:05)
[2024-02-05] MEDS: DESENEX/MITRAZOL/ZEASORB TOPICAL (21:06)
[2024-02-06] VITALS (28 sets, daily range): BP systolic 100–138; BP diastolic 58–102; PULSE 2–121; O2SAT 95; BMI 39.6
--- NOTE | 2024-02-06 00:23 | PTCARENOTE ---
FMS placed due to persistent liquid bowel movements.
No further change in assessment.
[2024-02-06] MEDS: FLAGYL 500 MG TUBE ×2 (01:31→08:27)
[2024-02-06] MEDS: NOVOLOG FLEXPEN-MODERATE RESISTANCE 3 UNITS SC ×3 (01:31→17:19)
[2024-02-06 01:42] LABS: Glucose - Point of Care 215 mg/dl (70-99)
[2024-02-06] MEDS: TYLENOL ORAL SOLUTION 650 MG TUBE (03:35)
[2024-02-06] MEDS: ANCEF 10 IV ×3 (03:35→17:14)
--- NOTE | 2024-02-06 03:53 | PTCARENOTE ---
No change in pt. assessment.
[2024-02-06 04:11] LABS: Hematocrit 32.3 % (39.0-52.0); Hemoglobin 9.8 g/dL (13.0-18.0); Mean Corp Hgb Conc. 30.3 g/dL (33.0-37.0); Mean Corpuscular Hgb 25.5 pg (27.0-31.0); Mean Corpuscular Volume 83.9 fL (80.0-94.0); Mean Platelet Volume 11.1 fL (7.4-10.4); Platelet Count 255 10^3/uL (130-400); Red Blood Cell Count 3.85 10^6/uL (4.70-6.10); Red Cell Dist. Width 19.9 % (11.5-14.5); White Blood Cell Count 12.6 10^3/uL (4.8-10.8)
[2024-02-06 04:32] LABS: Blood Urea Nitrogen 58 mg/dl (9-20); Calcium 7.8 mg/dl (8.4-10.2); Carbon Dioxide 33 mmol/L (22-30); Chloride 110 mmol/L (98-107); Estimated Creatinine Clearance 53 ml/min; Glucose 184 mg/dl (70-99); Potassium 4.7 mmol/L (3.5-5.1); Sodium 150 mmol/L (135-145); eGFR 52.41
[2024-02-06 05:44] LABS: Glucose - Point of Care 180 mg/dl (70-99)
[2024-02-06] MEDS: NOVOLOG FLEXPEN-MODERATE RESISTANCE 1 UNITS SC (06:07)
--- NOTE | 2024-02-06 07:48 | W.PN.CD ---
Today's Communication / Plan
-
-Continue Lasix 40 mg PO daily.
-Will start Toprol-XL 25 mg daily.
-Continue supportive care.
Impression / Plan
-
Impression/Plan: 73 y/o male (known to Dr. Alvarez, his primary Chief Engineer'S Helper) with HTN, HLD, IDDM, COPD, permanent atrial fibrillation (on apixaban), CAD with ICMO, PAD with prior LSFA endovascular intervention, and obesity admitted with
non-healing left foot ulcer/wet gangrene complicated by sepsis now s/p left heal debridement, subsequently complicated by VDRF and hypotension requiring pressor support.
#VDRF/HFrEF (EF 35%)
-Now extubated.
-Weight appears close to dry weight.
-Continue Lasix 40 mg PO daily.
#Left heal wet gangrene/septic shock
-Improving. Shock resolved, now severe sepsis (evidence of end organ damage).
-S/P left heal debridement.
-Continue antibiotics per ID.
-No current plans for further surgical management.
#Ischemic cardiomyopathy
-Chronic.
-LVEF = 35%.
-GDMT as hemodynamics will allow.
-Will start Toprol-XL 25 mg daily.
#Permanent Atrial fibrillation
-AF with RBBB (not new).
-Rate has increased as he is more awake and wants to be extubated. When extubated, restart metoprolol succinate 25 mg daily.
-CHADS2-Vasc = 6 (CHF, HTN, Age x2, DM, vascular disease).
-Continue Eliquis.
-Toprol-XL as above.
#Coronary artery disease
-Chronic, stable.
-Prior history of KS. Chronically occluded LAD.
-Continue ASA.
#CKD
-Acute on chronic, improving.
-Nephrology following.
#Anemia
-Chronic, stable.
Critical Care Time = 40 minutes.
Subjective/Interval History:
Patient now extubated. No cardiac complaints.
DATA:
Transthoracic Echocardiogram, 02/05/2024:
-Left ventricular ejection fraction is 35%; no significant valvular disease.
Cardiac Catheterization, 09/13/2023:
CONCLUSIONS:
1. Right dominant circulation with a 50% lesion in the distal third of the RPDA, a diffusely diseased, small first obtuse marginal, a 30% lesion in the mid ramus, a 40% lesion in the origin of the first diagonal and a chronic total occlusion of the
mid LAD (known since cardiac catheterization in 1999).
2. Normal filling pressures (LVEDP = 10 mmHg, PCWP = 13 mmHg at 105.7 kg).
3. Severely impaired cardiac function (cardiac index = 1.36 L/min/m�, a VO2 difference 8.63 volume percent).
4. Mild precapillary pulmonary hypertension (mean PA pressure = 23 mmHg, PVR = 3.44 Moser units).
5. Significantly elevated peripheral vascular resistance (1787 dynes*seconds*cm^5).
Physical Exam
Vital Signs/Labs
Vital Signs
Temp Pulse Resp BP Pulse Ox
97.6 F 104 30 125/71 96
02/06/24 03:32 02/06/24 06:00 02/06/24 06:00 02/06/24 06:00 02/06/24 05:00
02/05/24 02/06/24 02/07/24
06:59 06:59 06:59
Actual Weight 111 kg 111.3 kg
02/06/24 03:44
02/06/24 03:44
PT 27.4 Sec (11.4-14.6) H 01/31/24 08:53
INR 2.50 01/31/24 08:53
APTT Cancelled 02/03/24 10:45
Magnesium 2.2 mg/dl (1.6-2.3) 02/01/24 03:04
Triglycerides 150 mg/dl (10-149) H 02/05/24 03:31
01/31/24
09:09
Lac-[id number]-Xebwpbbohoz Pept [id number]
Physical Exam
Constitutional: No acute distress and Comfortable
EENT: Anicteric
Cardiovascular: Rhythm & rate is regular, Pedal edema is absent, Systolic murmur absent and S1S2 is normal
Respiratory: Respiratory effort normal and Lungs clear to auscul.
GI: Soft
Neuro/Psych: AO x 3
Other: Skin (warm)
Data Reviewed
-
Date of Service: February 06, 2024
Echo: Report Reviewed by me (EF 35%, no significant valvular disease)
Medical Tests (PFT, Pathology etc): Discussed with Patient
Labs: Labs Reviewed by me
Critical Care Time (in minutes): 40
[2024-02-06] MEDS: NSS (PRESERVATIVE FREE) 8 ML IV (08:25)
[2024-02-06] MEDS: PEPCID 10 MG IV (08:26)
[2024-02-06] MEDS: ELIQUIS 5 MG PO ×2 (08:27→20:45)
[2024-02-06] MEDS: MIRALAX 17 GRAMS TUBE (08:27)
[2024-02-06] MEDS: LOW STRENGTH ASPIRIN 81 MG TUBE (08:27)
[2024-02-06] MEDS: LASIX 40 MG PO (08:27)
[2024-02-06] MEDS: DESENEX/MITRAZOL/ZEASORB 1 APPLIC TOPICAL ×2 (08:28→20:45)
--- NOTE | 2024-02-06 08:31 | W.PN.INTV ---
Today's Communication / Plan
Recommendations
I am extubated on 02/05/2024 and is now doing well on nasal cannula
Continue nocturnal BiPAP - he has a Hx of severe ERICK, had been intolerant to CPAP as an outpatient
Diet as per DERRICK ENGINEER
Antibiotics as per ID
Diuresis as per nephrology
Continue with basal�bolus SQ insulin with goal BG 140�180
Remains full code
Patient is stable for downgrade out of ICU to telemetry; once downgraded then we will sign off. Patient has a follow-up with Pulmonary office on 03/26/[address] Candelaria - I advised him to keep this appointment. Please reconsult if there are any
additional questions/concerns, or if patient's respiratory status deteriorates.
Assessment
-
Patient is a 73-year-old male with previous history of hypertension, hyperlipidemia, CHF admitted to on 01/28/2024 for nonhealing left heel wound. He notes that he had a blister that was broken up and on his left heel and was prescribed a
topical antibiotic which did not improve his symptoms. Vascular was consulted and due to progressive lethargy, there is concern for ongoing sepsis. Underwent urgent debridement of heel on 01/29/2024 and transferred postoperatively to ICU.
Impression:
Unresponsiveness, acute hypoxic respiratory failure status post intubation 01/30/24 --> extubated 02/05/2024
Acute on chronic congestive heart failure exacerbation with reduced ejection fraction
Wet gangrene of the left heel s/p excisional debridement through bone with lavage and irrigation 01/29/2024 - wound Cx growing MSSA
Nonhealing left heel wound
Nausea/vomiting and diarrhea with flat plate concerning for ileus vs early SBO (likely the former)
Leukocytosis
RAUL, creatinine 1.9 (Cr baseline: approx. 1.2-1.3)
Hypernatremia (mild)
DM type II c/b hyperglycemia (HbA1C: 6.4 on 01/29/2024)
Conditions present prior to admission
History of heart failure, ICM worsened LVEF at 30-35% - TTE 09/11/23
Hypertension
Hyperlipidemia
Morbid obesity, BMI 40.4
Left anterior fascicular block, chronic
History of persistent atrial fibrillation on Eliquis
Coronary disease with history of NM 20+ years ago
History of TIA
Severe sleep apnea, HST AHI 61/78%, failed CPAP 2021
Diabetes
Chronic DJD, back pain
[id number], quit
Chronic cough, COPD/RLD on PFTs, follows at [facility]-Dr Montiel/Chanelle
PAD
Plan
- Patient was successfully extubated yesterday to BiPAP and he wore BiPAP overnight
- Continue with BiPAP with sleep (he carries a history of severe obstructive sleep apnea intolerant to CPAP in the past)
- Recommend outpatient evaluation for sleep disordered breathing given morbid obesity with thick neck
- Keep SpO2 >90-94%
CT head and neck obtained on 01/30/2024 --> bilateral carotid disease noted
Nephrology recs appreciated
- Continue PO lasix and trend sCr, I/O and UOP
Troponin peaked at 0.110 � cardiology consulted and recommendations appreciated; no need to continue trending troponin
Cardiac history as noted above
Transthoracic echo from 12/12/2023 shows LVEF 35-40% --> echo repeated on 02/04 showed LVEF 35% with severe hypokinesis of the mid�distal anterior, anteroseptal and apical dahl consistent with a mid LAD infarct; severe LAE
Patient follows cardiology (Kim)
He underwent LHC and RHC on 09/13/2023 showed reduced CI at 1.36 and low PCWP at 13 with slightly elevated PADP at 17mmhg with mild pHTN (mPAP: 23mmHg)
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
Rate control with goal HR<110bpm
Replete K>4, Mg>2
Unresponsiveness status post intubation 01/29 --> he is now awake and alert and was extubated on 02/04
CTA chest from 01/30/2024 shows large bilateral pleural effusions with bilateral mosaic attenuation likely due to interstitial edema, without acute PE
DERRICK ENGINEER saw the patient today and patient was cleared for regular solids/thin liquids; continue with aspiration precautions
GI ppx if indicated- N/A (continue pepcid as this is a home med)
Aspiration precautions
Non healing would of LLE, on abx for coverage, concern for sepsis --> currently on Ancef + flagyl since 02/03 s/p Unasyn and meropenem
s/p debridement 01/29/24, tissue culture grew MSSA; wound vac
Blood culture negative
Vasc surgery saw pt on 02/01 --> patient is at high risk for limb loss due to extent of heel wound + bone exposure; no acute need for surgical intervention at this point
Given his nausea/vomiting and diarrhea starting on evening of 02/04, ID ordered C-diff (negative) and norovirus stool studies
Flat plate done today (02/05) shows concern for ileus versus early SBO (suspect the former) - General Surgery consulted and recommended clear liquid diet; hold off on NGT for now and continue to monitor; repeat flatplate tomorrow and if shows
continued findings of dilated bowel then would consider CT abdomen/pelvis with oral contrast
Creat elevated, monitor function/IOs
Nephrology consulted and recommendations appreciated
Renally dose all meds/Abx; avoid nephrotoxic agents
Diuresis with lasix 40mg daily
CBC stable
Transfuse if needed to keep Hb >7, platelets >20k
DVT ppx: Eliquis
PT/OT when able
Goal BG 140-180
Diabetic ICER HAND consulted
Continue basal-bolus SQ insulin for now
Patient is stable for downgrade out of ICU to telemetry; once downgraded then we will sign off. Patient has a follow-up with our pulmonary office on 03/26/[address] Candelaria - I advised him to keep this appointment. Thank you for allowing us to
be involved in the care of this patient. Please reconsult if there are any additional questions/concerns, or if patient's respiratory status deteriorates.
Diagnostic Data
CXR 02/05/2024:
1. Nasrin is not particularly well seen on this projection. Tip of the endotracheal tube likely approximately 1.5 cm above the nasrin, similar to prior. Enteric catheter and left upper extremity PICC in position.
2. Low lung volumes. Bilateral small pleural effusions and adjacent atelectasis/consolidation.
Chest X-Ray: 01/28/24- No acute cardiopulmonary process.
09/14/23- No active cardiopulmonary disease.
Flat Plate 02/06/2024: Increased mild distention of small bowel, ileus versus at least partial distal small bowel obstruction.
CTA Chest 01/30/2024:
Markedly limited study, as detailed above, with no findings to suggest bilateral CENTRAL pulmonary embolism.
Large right lower lobe consolidation and moderate right pleural effusion.
Left lower lobe subsegmental atelectasis and small left pleural effusion.
Groundglass opacity and mild septal thickening suggesting mild to moderate pulmonary edema.
Endotracheal tube with tip in trachea above the nasrin. No pneumothorax.
CT Scan: CHEST 10/18/22- Stable small perifissural pulmonary nodules along the left major fissure. Stable mild small reticulonodular interstitial opacities in the bilateral upper lobes, right greater than left.
CAP 05/04/22- No acute pathology of the chest, abdomen and pelvis identified. Few left upper and lower lobe pulmonary nodules. Bilateral small renal cysts. Bilateral too small to characterize hypodense renal lesions, likely benign cysts. Moderate
fecal material throughout the colon. Mild diverticulosis.
Echo: 12/12/23- Moderately reduced left ventricular systolic function. Estimated left ventricular ejection fraction is 35-40% . Wall motion analysis is limited due to image quality. Mild mitral regurgitation.
Compared to the previous report 12/12/2023 findings are similar no significant change previously estimated ejection fraction 35%
PFT's: 03/29/23 FEV1 1.91 L 77%, FVC 2.57 L 75%, ratio 74. TLC 3.63 L 59%, DLCO 60%--moderately severe restriction, mild diffusion impairment
Reports and relevant images were personally reviewed.
-----
Total time spent today was 76 minutes for this encounter. Time includes reviewing laboratory test/imaging results, reviewing pertinent medical records, obtaining and reviewing medical history, performing an appropriate exam, ordering medications,
tests and procedures. Time also includes documentation of this encounter, coordinating patient care and communicating with other healthcare professionals. Total time does not include separately billed tests performed on this date of service.
Subjective Dataa
Subjective Data
Date of Service:
Date of Service: February 06, 2024
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
Subjective:
Pt seen and evaluated this AM. Extubated yesterday to BiPAP. He wore BiPAP 02/07 bled with 6L/min overnight - but did not like it. At home he uses O2 via nasal cannula. DERRICK ENGINEER saw him today and cleared him for a diet. HR 117, SPO2 95% and BP
138/79. He had nausea, vomiting and diarrhea last night. Today when I saw him he endorses abdominal discomfort. He wants to get up out of bed and walk around if possible. Currently denies chest pain, SOB, fever/chills.
Review of Systems
General: Other (Negative unless mentioned above)
Objective Data
Data Reviewed
Vital Signs / I&O / Oxygen:
Vital Signs
Temp Pulse Resp BP Pulse Ox
97.7 F 122 20 132/67 94
02/06/24 08:21 02/06/24 08:27 02/06/24 08:00 02/06/24 08:27 02/06/24 08:43
Intake and Output
02/05/24 02/06/24 02/07/24
06:59 06:59 06:59
Intake Total 3076.3 / 3141.3 675 / 720 90 / 90
Output Total 2215 / 2215 1980 / 2155 175 / 175
Balance 861.3 / 926.3 -1305 / -1435 -85 / -85
SaO2 [CPAP/PSV] 98
SaO2 [A/C] 100
SaO2 94
Nasal Cannula flow liters per 3
minute
Physical Exam
General: Respiratory Distress (negative), Comfortable, Chills (negative), Sweats (negative) and Other (obese male in NAD)
HEENT: Normocephalic and Anicteric
Cardiovascular: S1-S2 and Peripheral Edema (negative)
Respiratory: Wheeze (negative), Crackles (Bilateral from the bases to midlung montoya), Rhonchi (negative), Non-Labored Respirations and Stridor (negative)
GI: Soft, Distended (Abdominal obesity), Non Tender and Other (Hypoactive bowel sounds)
Neurology: Awake and Alert
Skin: Warm, Dry, Cyanosis (negative), Jaundice (negative) and Other (Boot on left foot)
Labs/Micro/Reports
Lab Data
02/06/24 03:44
02/06/24 03:44
Laboratory Results
02/05/24
10:32
pH 7.41
pCO2 42
pO2 87
HCO3 26.6
O2 Delivery Level
Microbiology
01/31/24 12:12 Blood/Venous Blood Culture - Final
No Growth - Final Report
01/31/24 11:15 Blood/Venous Blood Culture - Final
No Growth - Final Report
--- NOTE | 2024-02-06 08:55 | W.PN.ID1 ---
Date of Service
Date of Service: February 06, 2024
Today's Communication
- developed nausea, vomiting and diarrhea overnight
- take metronidazole with food, trial BID dosing
- check C diff and norovirus (recent outbreak on other units)
- 01/28 tissue culture with MSSA, no anaerobic culture done
- c/w cefazolin and per tube metronidazole
- will require a 6 week course of IV antibiotics (through 03/09/24)
- can place PICC when approaching dc, script for OPAT when approaching dc.
Assessment / Plan
Osteomyelitis of the L heel
Left heel ulcer with wet gangrene s/p debridement to bone
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
RAUL on CKD
Class II/III obesity
- developed nausea, vomiting and diarrhea overnight
- take metronidazole with food, trial BID dosing
- check C diff and norovirus (recent outbreak on other units)
- 01/28 tissue culture with MSSA, no anaerobic culture done
- c/w cefazolin and per tube metronidazole
- will require a 6 week course of IV antibiotics (through 03/09/24)
- can place PICC when approaching dc, script for OPAT when approaching dc.
Risks of treatment failure for calcaneal osteomyelitis relatively high, nevertheless agree with attempts at foot salvage which impacts quality of life. Pleased that Dm2 under control, patient is not an active smoker and has had revascularization.
Chief Complaint
-: Other (calceneal osteomyelitis, L foot)
Subjective / Review of Systems
afebrile
bp stable off of pressors
having liquid stools and episode of emesis overnight - tells me its now resolved
Vital Signs / Physical Exam
Vital Signs
Vital Signs
Temp Pulse Resp BP Pulse Ox
97.7 F 122 20 132/67 94
02/06/24 08:21 02/06/24 08:27 02/06/24 08:00 02/06/24 08:27 02/06/24 08:43
Physical Exam
Constitutional: No Acute Distress and Chronically Ill
Cardiovascular: Regular Rate and S1/S2; Negative Murmur or Rub
Pulmonary: Clear and Symmetric; Negative Wheezes or Rales
Gastrointestinal: Soft, Non Tender, Non Distended and Normal Bowel Sounds
Skin: Warm and Dry; Negative Rash or Jaundice
Objective Data
Lab Data
Lab Results
02/06/24 03:44
02/06/24 03:44
ESR 95 mm/hour (0-20) H 01/28/24 07:14
PT 27.4 Sec (11.4-14.6) H 01/31/24 08:53
INR 2.50 01/31/24 08:53
APTT Cancelled 02/03/24 10:45
Estimated Creat Clear 53 ml/min 02/06/24 03:44
Lactic Acid 1.1 mmol/L (0.7-2.0) 01/31/24 04:35
Total Bilirubin 1.3 mg/dl (0.2-1.3) D 01/31/24 04:35
AST 222 U/L (17-59) H 01/31/24 04:35
ALT 135 U/L (0-50) H 01/31/24 04:35
Alkaline Phosphatase 175 U/L (38-126) H 01/31/24 04:35
C-Reactive Protein > 270.00 mg/L (0.0-10.00) H 01/28/24 07:41
Most recent labs reviewed.
Micro Results:
01/31/24 12:12 Blood Culture - Final
Blood/Venous No Growth - Final Report
01/31/24 11:15 Blood Culture - Final
Blood/Venous No Growth - Final Report
01/28/24 12:25 Blood Culture - Final
Blood/Venous No Growth - Final Report
01/29/24 15:30 Tissue Culture - Final
Foot - Left S aureus-Methicillin Sensitive
Gram Stain - Final
01/28/24 14:04 MRSA Screen - Final
Nose No Methicillin Resistant Staphylococcus aureus isolated.
--- NOTE | 2024-02-06 08:56 | PN.DE.MGMTRT ---
Insulin Management
- -
02/06/2024: Diabetes management F/U:
73 years old male with multiple comorbidities admitted to the hospital on 01/27 with sepsis due to left foot plantar infected ulcer 2/2 diabetic foot ulcer and peripheral vascular disease. Diabetes consult requested on 02/04 for Hyperglycemia.
PMH: HTN, HLD, CAD, PVD, CHF, COPD and T2DM. Was taking Jardiance 10mg daily, Tresiba 45 units daily, metformin 1000mg BID and NovoLog 7-20 units AC. A1C 6.4%, Cr 1.5, eGFR 48.25. 01/30 started on tube feeds contributing to Hyperglycemia. 02/01 was
initiate on CC glycemic protocol, developed hypoglycemia on 02/03 while on insulin drip. Was transitioned off on 02/03 to SQ insulin- HS Lantus 5 units and moderate corrective only by Dr. Marcano.
Glucose has remained elevated since transition, 241 to 415, requiring high doses 3-9 units of corrective insulin.
Pt awake, alert, sitting up in bed, offers no complaints. Dtr- Qi at bedside, able to participate in discussion about diabetes mgt
Was extubated 02/04, remains on tube feeds, currently on hold, cleared by speech to start regular diet.
Received Lantus 15 units @ HS, FBG 184(v), 180 POC this AM.
Will increase Lantus to 17 units. Start NovoLog 4 units AC. Cont moderate corrective insulin AC.
Will reassess once diet has been started and adjust insulin if needed.
Diabetes History
- -
Type of Diabetes: 2 requiring insulin
Pre-Admission Diabetes Regimen
02/06/24
03:44
Creatinine 1.4 H
Lab Results
Hemoglobin A1c 6.4 % (4.0-5.6) H 01/29/24 07:22
Insulin Pump Settings
IP Diabetes Regimen
02/05/24 02/05/24 02/05/24
12:03 14:03 18:09
Glucose
POC Glucose 262 H 227 H 209 H
02/06/24 02/06/24 02/06/24
01:30 03:44 05:33
Glucose 184 H
POC Glucose 215 H 180 H
Patient Education
--- NOTE | 2024-02-06 09:45 | PTOTSP ---
Speech Language Pathology
Pt seen for dysphagia tx. Daughter present at bedside. Improved vocal strength noted this date. Intermittent nonproductive wet cough at rest. Daughter reported frequent coughing since her arrival this morning. P.O. trials of puree, regular
solids, and thin liquids provided. Adequate mastication, bolus formation, and A-P transit noted with no oral residue. Infrequent cough noted, but not increased in frequency compared to baseline cough. Clear vocal quality noted post P.O. intake.
Pt is at increased risk for aspiration given recent extubation and multiple medical comorbidities.
Recommend:
(1) Initiate regular solids/thin liquids
(2) Aspiration precautions: sit upright, slow rate, single sips
(3) Hold P.O. if increased coughing noted
(4) Meds as tolerated
(5) Will consider VSE as needed, but body habitus likely to make visualization difficult
(6) RESEARCH CONSULTANT to continue to follow
[2024-02-06] MEDS: TOPROL XL 25 MG PO (10:04)
[2024-02-06] MEDS: NOVOLOG FLEXPEN 4 UNITS SC ×2 (10:19→12:18)
[2024-02-06 10:24] LABS: Glucose - Point of Care 210 mg/dl (70-99)
--- NOTE | 2024-02-06 10:30 | W.PN.NEPH.PH ---
Today's Communication / Plan
-
recheck labs later today for hypernatremia
Assessment/Plan
-
Impression:
RAUL
CKD 3b (1.6)
Metabolic acidosis
Left plantar foot ulceration with gangrenous changes s/p debridement
Ischemic cardiomyopathy
History of hypertension
History of diabetes
Profound peripheral vascular disease
Diabetes
Plan:
cr now baseline and non oliguric
cont PO lasix , repeat echo no change, EF 35%
BP stable on low dose BB
Holding Jardiance, metformin, spironolactone and KARL inhibitor at this time
hypernatremia-plan to resume diet today and off TF
recheck labs later today if still high likely add hypotonic IVF
dose meds renally, abx per ID
d/w and nursing
-
-
Date of Service: February 06, 2024
CC / HPI / ROS
-
Chief Complaint:
RAUL with CKD
History of Present Illness:
cr stable 1.5, sodium up at 150
non oliguric with sosa
no fever, bicarb at 33
Hemodynamically stable
Review of Systems:
extubated 02/04
on 3lit of O2
wt no change
no cp or sob at rest
Labs
-
Labs:
WBC 12.6 10^3/uL (4.8-10.8) H 02/06/24 03:44
RBC 3.85 10^6/uL (4.70-6.10) L 02/06/24 03:44
Hgb 9.8 g/dL (13.0-18.0) L 02/06/24 03:44
Hct 32.3 % (39.0-52.0) L 02/06/24 03:44
Plt Count 255 10^3/uL (130-400) 02/06/24 03:44
Sodium 150 mmol/L (135-145) H 02/06/24 03:44
Potassium 4.7 mmol/L (3.5-5.1) 12 03:44
Chloride 110 mmol/L (98-107) H 02/06/24 03:44
Carbon Dioxide 33 mmol/L (22-30) H 02/06/24 03:44
BUN 58 mg/dl (9-20) H 02/06/24 03:44
Creatinine 1.4 mg/dL (0.7-1.3) H 02/06/24 03:44
eGFR 52.41 02/06/24 03:44
Glucose 184 mg/dl (70-99) H 02/06/24 03:44
Calcium 7.8 mg/dl (8.4-10.2) L 02/06/24 03:44
Phosphorus 4.0 mg/dl (2.5-4.5) 01/31/24 04:35
Gzv-I-Qtaexcdpqnc Pept 23712 pg/ml 01/31/24 09:09
Albumin 2.6 g/dl (3.5-5.0) L 01/31/24 04:35
Physical Exam
-
Vital Signs:
Vital Signs
Temp Pulse Resp BP Pulse Ox
97.5 F 120 20 138/79 94
02/06/24 11:56 02/06/24 10:04 02/06/24 08:00 02/06/24 10:04 02/06/24 08:43
Cardiovascular:: Regular rate and rhythm
Lung Excursion:: Abnormal ( decreased BS)
Abdomen:: Nontender and Soft
Extremity Edema:: None: Bilateral:
Sosa Catheter: Yes
--- NOTE | 2024-02-06 11:37 | CM ---
Addendum entered by Gaurav Otto 02/06/24 15:53:
PT and OT evaluations noted - SNF level of care recommended, pt requires max assistance of 2 people with transferring.
CM met with pt and pt's spouse at bedside. Both pt and his spouse are aware of recommendations. Pt's spouse witnessed pt's performance with PT and OT and both pt and his spouse expressed their agreement with SNF level of care at discharge. A list of
SNFs provided to the pt and his spouse. Following SNFs preferred: [facility], [facility], [facility] SNF and [facility] SNF. A referral to above SNFs made.
D/C plan: preferred SNF.
CM will follow to assist pt with discharge to a preferred SNF.
Original Note:
CM following re: discharge planning.
Discussed in rounds, reviewed pt's chart, met with pt.
Pt extubated yesterday Bi-pap, requires 3L NC of O2, continue supportive care. Per ID pt will need IV antibiotic treatment for up to 6 weeks, till 03/09/23.
PT and OT will evaluations pending.
Both pt, his spouse and daughter are aware and a plan will be discussed closer to discharge. Per spouse and daughter have home infusion therapy at home might be the best option.
D/C plan: home with home infusion therapy vs SNF.
CM will follow with discharge plan updates as hospitalization progresses
[2024-02-06 11:56] LABS: Glucose - Point of Care 233 mg/dl (70-99)
--- NOTE | 2024-02-06 12:00 | PTCARENOTE ---
Patient left heel wound changed per order. BLE pulses can be heard with doppler. Pt denies pain, nausea, vomiting this shift thus far, abdomen is distended but soft. Pt is drinking liquids well, had 1 meal of soup. Patient is having liquid brown
stools. Abdominal x-ray ordered.
--- NOTE | 2024-02-06 12:05 | W.PN.HOSP.TC ---
Addendum entered and electronically signed by Conrado Fernández MD 02/06/24 14:26:
Physical Exam
NAD, resting comfortably in bed, states he is thirsty
Scleral anicteric
Moist mucous membranes
No JVD
CTA bilateral
Normal S1-S2 no murmurs
Soft nontender nondistended bowel sounds active
No peripheral pitting edema
Moves extremities spontaneously
AAOx3
Assessment and Plan
Acute on chronic hypoxemic respiratory failure requiring mechanical ventilator
-successfully extubated
-wean o2 to home as tolerated
Severe sepsis
-Left foot plantar ulcer with osteomyelitis
-Family opted for salvage of the extremity to avoid amputation
-Long-term antibiotics for at least 6 weeks
-ID following
RAUL on CKD stage IIIb
-Improving
-Follow I's and O's
-Avoid nephrotoxic agents and hypotension
-Monitor urinary output
-Nephrology following
Acute on chronic HFrEF with EF of 30 to 35%, NYHA class IV
-Continue GDMT
-Diurese
-Cardiology following
-Monitor urinary output
-Monitor on telemetry
-Keep K greater than 4
-Keep magnesium greater than 2
Permanent atrial fibrillation
-Continue beta-misha
-Currently on heparin drip plan to transition to Eliquis when able to tolerate p.o.
Type 2 diabetes
-A1c 6.4
-Accu-Cheks
-Sliding scale
-Goal blood glucose 1 40-1 80
-Carb controlled diet/Glucerna will need to tolerate
speech cleared for regular diet
Original Note:
Today's Communication/Plan
-
Adequate hydration.
Discontinue tube feeds.
start metoprolol.
Reassess for hyponatremia after adequate oral fluid intake.
Assessment / Plan
Assessment / Plan
Assessment -73 [facility] for peripheral vascular disease, CKD stage IIIb, CAD, permanent A-fib, TIA, hypertension, hyperlipidemia, insulin-dependent type 2 diabetes mellitus, with multiple comorbidities presented to the hospital
with sepsis due to left foot plantar infected diabetic foot ulcer with underlying PAD.
Plan -
Severe sepsis-
Secondary to diabetic left plantar foot ulcer with underlying peripheral vascular disease.
Status post sharp excisional debridement by vascular surgery team on 01/28, lactic acid levels on 01/29 at 5.4.
Left heel bone biopsy growing MSSA, patient was initially started on IV cefepime and vancomycin then transition to meropenem and vancomycin and then to Unasyn.
ID on board, appreciate inputs.
His Unasyn was discontinued yesterday and was switched to cefazolin and metronidazole.
Initial plan for staged revascularization procedure is on hold due to clinical instability and RAUL on CKD that resolved.
Shock-01/29.
Unclear etiology whether septic versus cardiogenic.
CT PE negative for pulmonary embolism, however there is some evidence for mild to moderate pulmonary [place] [address]. Elevated lactic acid levels at 5.4.
Lactic acid levels resolved the subsequent day on 01/30.
Off of Levophed, fentanyl, propofol.
Ventilator dependent respiratory failure-
Acute on chronic hypoxic respiratory failure.
CT chest evident for pulmonary edema.
Also history of PHTN, untreated, precapillary likely secondary to ERICK.
extubated overnight. doing well on midflow nasal cannula
Downgrade to IMU. Repeat ABG within normal limits.
RAUL on CKD stage 3b
likely secondaryu to cardiorenal syndrome.
Cr down to 1.5, baseline is at 1.2 '
Continue to trends weights, I and O, and continue Lasix 40mg oral.
Patient is currently at his dry weight 111kgs.
Avoid nephrotoxic agents. Discontinued bicarbonate yesterday.
Renal on board, appreciate inputs.
Acute on Chronic HFrEF -
Likely secondary to sepsis in the setting of pre-existing CAD and heart failure.
Cardiology on board. Appreciate input
Most recent echocardiogram-09/26-EF 30 to 35%.
Continue GDMT as tolerated. Cardiology added metoprolol today.
will reassess tachycardia after taking metoprolol.
Peripheral vascular disease-
No plan for staged revascularization procedure due to clinical instability.
Patient is currently on Eliquis.
Status post left lower extremity arteriogram and stent to SFA, angioplasty to PT per vascular surgery in 09/26.
Permanent A-fib
On metoprolol.
[id number]-FTHy score-Transitioned back to Eliquis from heparin.
Hypernatremia -
likely secondary to hemoconcentration from Diuresis.
Speech eval - NPO after intubation yesterday.
Recommended regular diet today.
recommend adequate oral hydratipon.
Discontinue tube feeds.
Reassess for hypernatremia tomorrow.
Type 2 diabetes mellitus-
HbA1c at 6.4.
Cyypwvdrq-Tmbfikj-97 units daily. Developed hypoglycemia yesterday on Tresiba, diabetes nurse practitioner consulted for diabetes education and management.
Tube feeds discontinued. Overnight insulin requirement was low.
Continue to monitor glucose with tight glycemic control.
Elevated troponins
Type II demand ischemia
Troponins trended down on 02/02.
Cardiology on board.
Previous history of coronary artery disease.
DVT prophylaxis-on Eliquis
CODE STATUS full code
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
CAD-continue his home meds-aspirin.
Hypertension-continue lisinopril.
Hyperlipidemia-continue Lipitor.
TIA
Asthma
Morbid obesity
Hypoglycemia
Investigations -
Chest X-Ray:
02/05/24 -
As above, flip is not particularly well seen on this projection. Tip of the endotracheal tube likely approximately 1.5 cm above the flip, similar to prior. Enteric catheter and left upper extremity PICC in position.
Low lung volumes. Bilateral small pleural effusions and adjacent atelectasis/consolidation.
01/28/24- No acute cardiopulmonary process.
09/14/23- No active cardiopulmonary disease.
Abdomen X ray -
02/01/24- Nasogastric tube is seen with tip in the distal stomach. Study is otherwise stable.
CTA - 01/30/24 -
Scattered mild to moderate calcified plaque of the common carotid arteries, bilaterally. Bilateral bulb calcified plaque and calcified plaque at the ICA origin and proximal internal carotid arteries.
Distal left common carotid artery estimated luminal diameter reduction of 65%. Proximal left ICA estimated luminal diameter reduction of approximately 60%.
Proximal right ICA estimated luminal diameter reduction of approximately 50%.
Bilateral cavernous ICA calcified plaque with estimated luminal diameter reduction of less than 50%.
Normal variant absent right anterior cerebral artery A1 segment, with the A2 segment supplied by a patent anterior to be encasing artery.
Otherwise, no intracranial cerebral artery plaque, stenosis, occlusion, or aneurysm.
The vertebral arteries are patent. Patent basilar artery.
Moderate right and small left pleural effusion. Pulmonary parenchymal consolidation, right greater than left, atelectasis versus pneumonia. Mild superior mediastinal adenopathy.
CT Scan: CHEST 10/18/22- Stable small perifissural pulmonary nodules along the left major fissure. Stable mild small reticulonodular interstitial opacities in the bilateral upper lobes, right greater than left.
CAP 05/04/22- No acute pathology of the chest, abdomen and pelvis identified. Few left upper and lower lobe pulmonary nodules. Bilateral small renal cysts. Bilateral too small to characterize hypodense renal lesions, likely benign cysts. Moderate
fecal material throughout the colon. Mild diverticulosis.
Echo: 12/12/23- Moderately reduced left ventricular systolic function. Estimated left ventricular ejection fraction is 35-40% . Wall motion analysis is limited due to image quality. Mild mitral regurgitation.
Compared to the previous report 12/12/2023 findings are similar no significant change previously estimated ejection fraction 35%
PFT's: 03/29/23 FEV1 1.91 L 77%, FVC 2.57 L 75%, ratio 74. TLC 3.63 L 59%, DLCO 60%--moderately severe restriction, mild diffusion impairment
Anticipated Discharge: 24 - 48 hours
Subjective/Interval History
-
Date of Service: February 06, 2024
Patient states that he could not tolerate Well overnight and did not have enough sleep because of CPAP
Objective Data
-
Labs:
Laboratory Results
02/06/24
03:44
WBC 12.6 H
Hgb 9.8 L
Hct 32.3 L
Plt Count 255
Sodium 150 H
Potassium 4.7
Chloride 110 H
Carbon Dioxide 33 H
BUN 58 H
Creatinine 1.4 H
Glucose 184 H
Calcium 7.8 L
Vital Signs:
Vital Signs
Temp Pulse Resp BP Pulse Ox
97.5 F 120 20 138/79 94
02/06/24 11:56 02/06/24 10:04 02/06/24 08:00 02/06/24 10:04 02/06/24 08:43
I&O
02/05/24 02/06/24 02/07/24
06:59 06:59 06:59
Intake Total 3076.3 / 3141.3 675 / 720 275 / 275
Output Total 2215 / 2215 1980 / 2155 175 / 175
Balance 861.3 / 926.3 -1305 / -1435 100 / 100
Review of Systems
-
History Source: Patient
Constitutional: Reports Fatigue; Denies Fever, No Appetite, Night Sweats or Chills
EENT: Reports Other (dry mouth)
Respiratory: Reports No Symptoms
Cardiac: Reports No Symptoms
Abdomen/GI: Reports No Symptoms
Genitourinary: Reports No Symptoms
Musculoskeletal: Reports Other (pain in right leg)
Skin: Reports No Symptoms
Neuro: Reports No Symptoms
Hematologic / Lymphatic: Reports No Symptoms
Physical Exam
-
General: Respiratory Distress (mild) and Other (on 4l midflow nasal cannula)
HEENT: Moist Mucous Membranes and PERRLA
Respiratory: Clear to Auscultation (in upper lobes) and Crackles (in lower lobe left); Negative Wheezes, Rales or Rhonchi
Cardiac: Regular Rhythm, S1/S2 and Tachycardic; Negative Murmur, Rub or Gallop
GI: Soft, Nontender and Normal Bowel Sounds
Musculoskeletal: No Clubbing, No Cyanosis and Other (b/l pitting edema improved, left heal wound dressing intact, and clean, right leg - no erythema or calf tenderness, stasis dermatitis changes noted in b/l LE)
Neuro: Awake and Alert
Psych: Calm
--- NOTE | 2024-02-06 15:41 | CON.GS ---
Medical History
-
Chief Complaint: Nausea and emesis
History of Present Illness:
Patient is a 73 yo M with PMH of obesity, GERD, HTN, HLD, A-fib (on Eliquis), CAD c/b [place] s/p PCI with stent, ERICK, IDDM, COPD, TIAs, and PAD who was admitted to on 01/27 with a gangrenous, nonhealing LEFT foot wound. He underwent debridement
vascular surgery service on 01/24/2024. Postoperative course complicated by acute hypoxic respiratory failure as well as acute on chronic CHF. He has also had issues with dysphagia and was receiving nutrition via DHT. Reported to have issues with
nausea and vomiting overnight. During the course of this workup and abdominal x-ray was obtained which demonstrated mild dilation of the small bowel with air within the colon consistent with a possible ileus. He recently passed a swallow eval and
was started on clears today which he has tolerated. Currently he denies any nausea or vomiting. He denies any abdominal pain. He reports passing small amounts of flatus. Reports from patient nursing liquid, nonbloody stool. Of note, he is prior
abdominal surgery.
Past Medical History
Past Medical History: Arrhythmias (Afib), CAD, CHF, COPD, CVA, GERD, HTN, Hypercholesterolemia, IDDM and Other (Obesity, ERICK, chronic back pain, PAD)
Past Surgical History: Cardiac (PCI with stent) and Other (Debridement of L heel wound)
Social History
Tobacco: Former Smoker
Alcohol: Occasional
Drug: None
Family History
Family History: Reviewed & Not Pertinent
Allergies / Home Medications
Allergy/AdvReac Type Severity Reaction Status Date / Time
adhesive tape Allergy BLISTERED Verified 01/28/24 12:52
hydromorphone [From Dilaudid] AdvReac Nausea Verified 01/28/24 12:52
oxycodone HCl [From Percocet] AdvReac Nausea Verified 01/28/24 12:52
�Medication �Instructions �Recorded �Confirmed �Type
metformin 1,000 mg tablet 1,000 mg PO BID Diabetes 06/22/12 01/28/24 History
apixaban 5 mg tablet (Eliquis) 5 mg PO BID Blood Clot 06/03/15 01/28/24 History
Prevention/Tx
cholecalciferol (vitamin D3) 25 1,000 units PO DAILY Supplement 06/03/15 01/28/24 History
mcg (1,000 unit) tablet
insulin aspart U-100 100 unit/mL 7 - 20 units SC AC Diabetes 06/03/15 09/10/23 History
subcutaneous solution (Novolog
U-100 Insulin aspart)
Bifidobacterium infantis 4 mg 4 mg PO DAILY probiotic 09/04/23 09/10/23 History
capsule (Align)
albuterol sulfate 90 mcg/actuation 1 puff inhalation Q4HPRN PRN COPD 09/04/23 01/28/24 History
aerosol inhaler
atorvastatin 20 mg tablet 80 mg PO DAILY High Cholesterol 09/04/23 01/28/24 History
dicyclomine 20 mg tablet 20 mg PO DAILYPRN PRN IBS 09/04/23 09/10/23 History
famotidine 20 mg tablet 20 mg PO HS Gastrointestinal Issue 09/04/23 01/28/24 History
furosemide 40 mg tablet 40 mg PO NOON Fluid 09/04/23 01/28/24 History
Retention/Swelling
insulin degludec 100 unit/mL (3 45 unit SC DAILY Diabetes ##0 09/04/23 09/10/23 History
mL) subcutaneous pen (Tresiba
FlexTouch U-100 insulin)
metoprolol succinate 25 mg 25 mg PO DAILY Blood Pressure 09/04/23 01/28/24 History
tablet,extended release 24 hr
multivitamin 1 tab PO NOON Supplement 09/04/23 09/10/23 History
umeclidinium 62.5 mcg-vilanterol 1 inh inhalation R DAILY 09/04/23 01/28/24 History
25 mcg/actuation powdr for Lung/Breathing Issues
inhalation (Anoro Ellipta)
aspirin 81 mg tablet,delayed 81 mg PO DAILY #90 tabs 09/06/23 01/28/24 Rx
release
nystatin 100,000 unit/gram topical 1 applic topical DAILY groin 09/06/23 09/10/23 History
powder
empagliflozin 10 mg tablet 10 mg PO DAILY 30 days #30 tabs 09/14/23 01/28/24 Rx
(Jardiance)
lisinopril 10 mg tablet 10 mg PO NOON 30 days #30 tabs 09/14/23 Rx
spironolactone 25 mg tablet 25 mg PO DAILY 30 days #30 tabs 09/14/23 Rx
Review of Systems
-
A 10 point review of systems was completed, and was negative except as per HPI.
Physical Exam
Vital Signs
Temp Pulse Resp BP Pulse Ox
98.8 F 109 25 122/63 95
02/06/24 15:38 02/06/24 14:00 02/06/24 14:00 02/06/24 14:00 02/06/24 14:00
02/05/24 02/06/24 02/07/24
06:59 06:59 06:59
Actual Weight 111 kg 111.3 kg
Body Mass Index (BMI) 39.6
Lab Results
02/06/24 03:44
WBC 12.6 10^3/uL (4.8-10.8) H 02/06/24 03:44
Hgb 9.8 g/dL (13.0-18.0) L 02/06/24 03:44
Hct 32.3 % (39.0-52.0) L 02/06/24 03:44
Plt Count 255 10^3/uL (130-400) 02/06/24 03:44
Abs Immat Gran (auto) 0.3 10^3/uL (0-0.05) H 02/03/24 03:07
Neutrophils % 79.0 % (42.2-75.2) H 02/03/24 03:07
Physical Exam
General: Well Developed, Well Nourished and No Apparent Distress
HEENT: Normocephalic and Anicteric
Respiratory: Non Labored Respirations and Other (Supplemental O2)
Cardiac: Irregular Rhythm
GI: Soft, Non Tender, Non Distended and Obese
Data Reviewed
-
Radiology: Image Personally Visualized and interpreted and Report Reviewed by me
Labs: Labs Reviewed by me
Old Records: Reviewed
Assessment / Plan
-
Patient is a 73 yo M p/w nonhealing diabetic foot wound s/p debridement by Vascular Surgery on 01/27.
Issues with nausea and emesis overnight prompting abdominal X-ray which demonstrates a possible ileus. Currently tolerating clears with bowel function. No role or indication or surgical intervention. If further issues with nausea vomiting or
abdominal pain recommend backing down to NPO and NGT. Pending symptoms over the next 12 to 24 hours would recommend either repeat abdominal x-ray and NG tube versus dietary advancement. All questions answered, patient and family agree with plan.
-- Clears as tolerated
-- If issues of nausea or emesis make NPO and place NGT
--- NOTE | 2024-02-06 16:00 | PTCARENOTE ---
Patient abdominal x-ray shows possible ileus. GI surgery was consulted and Dr. Medina spoke with patient, family, and RN at the bedside. He said that as long as patient is not having more emesis, nausea, having bowel movements/passing gas and
tolerating clear liquids...NGT to suction is not recommended from his end. Repeat abdominal x-ray ordered for the am. Patients family has been updated by RN on plan of care and medication administration this shift. Stool sample negative for c-diff.
Patient cleared by speech today for food and thin liquids- pt now on clear liquid diet for ileus.
[2024-02-06 16:05] LABS: Blood Urea Nitrogen 54 mg/dl (9-20); Calcium 7.9 mg/dl (8.4-10.2); Carbon Dioxide 30 mmol/L (22-30); Chloride 108 mmol/L (98-107); Estimated Creatinine Clearance 53 ml/min; Glucose 240 mg/dl (70-99); Potassium 4.8 mmol/L (3.5-5.1); Sodium 149 mmol/L (135-145); eGFR 52.41
[2024-02-06] MEDS: LIPITOR 80 MG PO (17:13)
[2024-02-06] MEDS: NOVOLOG FLEXPEN SC (17:19)
[2024-02-06 17:29] LABS: Glucose - Point of Care 244 mg/dl (70-99)
[2024-02-06] MEDS: FLAGYL 500 MG PO (20:45)
[2024-02-06] MEDS: LANTUS 0.17 UNITS SC (20:45)
[2024-02-06] MEDS: PEPCID 20 MG PO (20:45)
[2024-02-06 22:27] LABS: Glucose - Point of Care 276 mg/dl (70-99)
[2024-02-07] VITALS (21 sets, daily range): BP systolic 113–147; BP diastolic 62–94; PULSE 2–111; BMI 39.7
[2024-02-07] MEDS: ANCEF 10 IV ×3 (02:52→18:21)
--- NOTE | 2024-02-07 04:48 | PTCARENOTE ---
When off bipap, pt placed back on 6L midflow NC, sustained pulse ox 86-88%. 8L ineffective, increased to 10L.
[2024-02-07 05:08] LABS: Hematocrit 32.6 % (39.0-52.0); Hemoglobin 9.6 g/dL (13.0-18.0); Mean Corp Hgb Conc. 29.4 g/dL (33.0-37.0); Mean Corpuscular Hgb 25.1 pg (27.0-31.0); Mean Corpuscular Volume 85.3 fL (80.0-94.0); Mean Platelet Volume 11.4 fL (7.4-10.4); Platelet Count 266 10^3/uL (130-400); Red Blood Cell Count 3.82 10^6/uL (4.70-6.10); White Blood Cell Count 14.4 10^3/uL (4.8-10.8)
[2024-02-07 05:48] LABS: ALT (SGPT) 15 U/L (0-50); AST (SGOT) 34 U/L (17-59); Albumin 2.7 g/dl (3.5-5.0); Alkaline Phosphatase 160 U/L (38-126); Blood Urea Nitrogen 44 mg/dl (9-20); Calcium 7.9 mg/dl (8.4-10.2); Carbon Dioxide 34 mmol/L (22-30); Chloride 109 mmol/L (98-107); Estimated Creatinine Clearance 53 ml/min; Glucose 189 mg/dl (70-99); Magnesium 2.3 mg/dl (1.6-2.3); Phosphorus 3.7 mg/dl (2.5-4.5); Potassium 4.9 mmol/L (3.5-5.1); Sodium 148 mmol/L (135-145); Total Bilirubin 0.5 mg/dl (0.2-1.3); Total Protein 6.6 g/dl (6.3-8.2); eGFR 52.41
[2024-02-07 05:50] LABS: NT-proBNP 6410 pg/ml
--- NOTE | 2024-02-07 07:00 | PTCARENOTE ---
received patient at change of shift from previous RN. Pt resting in bed. AAOX3. generalized weakness. pt on 10L midflow nasal cannula, sat 94%. lung sounds coarse. moist intermittent cough. Afib on telemtry heart rate low 100s. lower extremity
pulses by doppler. abdomen round, obese, hypoactive bowel sounds, pt denies nausea. tolerated clear liquids and medications with water. voiding in urinal. left heel wound dressing CDI. see worklist for full nursing assessment and interventions. pt
updated on plan of care
[2024-02-07 07:49] LABS: Glucose - Point of Care 217 mg/dl (70-99)
--- NOTE | 2024-02-07 07:49 | W.PN.CD ---
Today's Communication / Plan
-
-Patient with some nausea yesterday, but feels better this a.m.; able to tolerate PO intake.
-Continue Lasix 40 mg PO daily.
-Resume Toprol-XL 25 mg daily.
-Heart rates mildly elevated, should improve with resumption of Toprol-XL.
-If unable to tolerate PO intake, recommend standing dose of Lopressor 5 mg IV Q6 and placing on a heparin drip--if OK with Surgery.
Impression / Plan
-
Impression/Plan: 73 y/o male (known to Dr. Alvarez, his primary [employer]) with HTN, HLD, IDDM, COPD, permanent atrial fibrillation (on apixaban), CAD with ICMO, PAD with prior LSFA endovascular intervention, and obesity admitted with
non-healing left foot ulcer/wet gangrene complicated by sepsis now s/p left heal debridement, subsequently complicated by VDRF and hypotension requiring pressor support.
#VDRF/HFrEF (EF 35%)
-Extubated.
-Weight appears close to dry weight.
-Continue Lasix 40 mg PO daily.
#Left heal wet gangrene/septic shock
-Improving. Shock resolved, now severe sepsis (evidence of end organ damage).
-S/P left heal debridement.
-Continue antibiotics per ID.
-No current plans for further surgical management.
#Ischemic cardiomyopathy
-Chronic.
-LVEF = 35%.
-GDMT as hemodynamics will allow.
-Resume Toprol-XL 25 mg daily.
#Permanent Atrial fibrillation
-AF with RBBB (not new).
-Heart rates mildly elevated, should improve with resumption of Toprol-XL.
-CHADS2-Vasc = 6 (CHF, HTN, Age x2, DM, vascular disease).
-Continue Eliquis.
-If unable to tolerate PO intake, recommend standing dose of Lopressor 5 mg IV Q6 and placing on a heparin drip--if OK with Surgery.
#Coronary artery disease
-Chronic, stable.
-Prior history of SD. Chronically occluded LAD.
-Continue ASA.
#CKD
-Acute on chronic, improving.
-Nephrology following.
#Anemia
-Chronic, stable.
Critical Care Time = 40 minutes.
Subjective/Interval History:
Patient with some nausea yesterday, but feels better this a.m.; able to tolerate PO intake.
DATA:
Transthoracic Echocardiogram, 02/05/2024:
-Left ventricular ejection fraction is 35%; no significant valvular disease.
Cardiac Catheterization, 09/13/2023:
CONCLUSIONS:
1. Right dominant circulation with a 50% lesion in the distal third of the RPDA, a diffusely diseased, small first obtuse marginal, a 30% lesion in the mid ramus, a 40% lesion in the origin of the first diagonal and a chronic total occlusion of the
mid LAD (known since cardiac catheterization in 1999).
2. Normal filling pressures (LVEDP = 10 mmHg, PCWP = 13 mmHg at 105.7 kg).
3. Severely impaired cardiac function (cardiac index = 1.36 L/min/m�, a VO2 difference 8.63 volume percent).
4. Mild precapillary pulmonary hypertension (mean PA pressure = 23 mmHg, PVR = 3.44 Moser units).
5. Significantly elevated peripheral vascular resistance (1787 dynes*seconds*cm^5).
Physical Exam
Vital Signs/Labs
Vital Signs
Temp Pulse Resp BP Pulse Ox
98.4 F 118 28 145/76 93
02/07/24 07:45 02/07/24 05:00 02/07/24 05:00 02/07/24 05:00 02/07/24 05:00
02/06/24 02/07/24 02/08/24
06:59 06:59 06:59
Actual Weight 111.3 kg 111.5 kg
02/07/24 04:41
02/07/24 04:41
PT 27.4 Sec (11.4-14.6) H 01/31/24 08:53
INR 2.50 01/31/24 08:53
APTT Cancelled 02/03/24 10:45
Magnesium 2.3 mg/dl (1.6-2.3) 02/07/24 04:41
Triglycerides 150 mg/dl (10-149) H 02/05/24 03:31
01/31/24 02/07/24
09:09 04:41
[id number] Pept [id number]
Physical Exam
Constitutional: No acute distress and Comfortable
EENT: Anicteric
Cardiovascular: Pedal edema is absent, Systolic murmur absent, Rhythm/rate is irregular and S1S2 is normal
Respiratory: Respiratory effort normal and Rhonchi Present (Left base)
GI: Soft
Neuro/Psych: AO x 3
Other: Skin (warm)
Data Reviewed
-
Date of Service: February 07, 2024
EKG: Report Reviewed by me (Telemetry: A-fib)
Medical Tests (PFT, Pathology etc): Discussed with Nurse and Discussed with Patient
Labs: Labs Reviewed by me
Critical Care Time (in minutes): 38
[2024-02-07] MEDS: LOW STRENGTH ASPIRIN 81 MG TUBE (07:56)
[2024-02-07] MEDS: ELIQUIS 5 MG PO ×2 (07:56→21:39)
[2024-02-07] MEDS: LASIX 40 MG PO (07:56)
[2024-02-07] MEDS: FLAGYL 500 MG PO ×2 (07:56→21:39)
[2024-02-07] MEDS: NOVOLOG FLEXPEN-MODERATE RESISTANCE 3 UNITS SC (07:57)
[2024-02-07] MEDS: TOPROL XL 25 MG PO (07:57)
--- NOTE | 2024-02-07 07:57 | PN.DE.MGMTRT ---
Insulin Management
- -
02/07/2024: Diabetes management F/U:
73 years old male with multiple comorbidities admitted to the hospital on 01/27 with sepsis due to left foot plantar infected ulcer 2/2 diabetic foot ulcer and peripheral vascular disease. Diabetes consult requested on 02/04 for Hyperglycemia.
PMH: HTN, HLD, CAD, PVD, CHF, COPD and T2DM. Was taking Jardiance 10mg daily, Tresiba 45 units daily, metformin 1000mg BID and NovoLog 7-20 units AC. A1C 6.4%, Cr 1.5, eGFR 48.25. 01/30 started on tube feeds contributing to Hyperglycemia. 02/01 was
initiate on CC glycemic protocol, developed hypoglycemia on 02/03 while on insulin drip. Was transitioned off on 02/03 to SQ insulin- HS Lantus 5 units and moderate corrective only by Dr. Marcano.
Glucose has remained elevated since transition, 241 to 415, requiring high doses 3-9 units of corrective insulin.
Pt awake, alert, sitting up in bed, offers no complaints. Dtr- Lalitha at bedside, able to participate in discussion about diabetes mgt
Was extubated 02/04, off tube feeds, started on clear liquid diet. Started AC NovoLog yesterday, premeal glucose still elevated 210 to 244
Received Lantus 17 units @ HS, FBG 189(v), 217 POC this AM.
Will increase Lantus to 20 units and increase NovoLog to 7 units AC. Cont moderate corrective insulin AC.
States was taking Jardiance at home, notified that Jardiance is NF at . He doesn't want to take Farxiga, says he had severe SE and was discontinued.
Will cont to follow and adjust insulin if needed.
Diabetes History
- -
Type of Diabetes: 2 requiring insulin
Pre-Admission Diabetes Regimen
02/06/24 02/07/24
15:30 04:41
Creatinine 1.4 H 1.4 H
Lab Results
Hemoglobin A1c 6.4 % (4.0-5.6) H 01/29/24 07:22
Insulin Pump Settings
IP Diabetes Regimen
02/06/24 02/06/24 02/06/24
10:13 11:45 15:30
Glucose 240 H
POC Glucose 210 H 233 H
02/06/24 02/06/24 02/07/24
17:18 22:16 04:41
Glucose 189 H
POC Glucose 244 H 276 H
02/07/24
07:37
Glucose
POC Glucose 217 H
Meal type: Lunch
Amount consumed: 40%
Patient Education
[2024-02-07] MEDS: NOVOLOG FLEXPEN 4 UNITS SC (07:58)
[2024-02-07] MEDS: DESENEX/MITRAZOL/ZEASORB 1 APPLIC TOPICAL ×2 (08:00→21:39)
--- NOTE | 2024-02-07 08:47 | W.PN.ID1 ---
Date of Service
Date of Service: February 07, 2024
Today's Communication
ileus vs partial SBO noted
continue current antibiotics
if made NPO please convert metronidazole to IV
Assessment / Plan
Osteomyelitis of the L heel
Left heel ulcer with wet gangrene s/p debridement to bone
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
RAUL on CKD
Class II/III obesity
- nausea, diarrhea; distal partial small bowel obstruction and ileus
- take metronidazole with food, BID dosing - if made NPO please switch to IV route
- C diff and norovirus negative
- 01/28 tissue culture with MSSA, no anaerobic culture done
- c/w cefazolin and metronidazole
- will require a 6 week course of IV cefazolin and oral metronidazole (through 03/09/24)
- can place PICC when approaching dc
- script for OPAT placed on paper chart
Risks of treatment failure for calcaneal osteomyelitis relatively high, nevertheless agree with attempts at foot salvage which impacts quality of life. Pleased that Dm2 under control, patient is not an active smoker and has had revascularization.
Chief Complaint
-: Other (calceneal osteomyelitis, L foot)
Subjective / Review of Systems
afebrile
bp stable
ileus vs partial sbo
reports nausea resolved
no flatus or bm reported by patient this am
Vital Signs / Physical Exam
Vital Signs
Vital Signs
Temp Pulse Resp BP Pulse Ox
98.4 F 111 28 129/70 93
02/07/24 07:45 02/07/24 07:57 02/07/24 05:00 02/07/24 07:57 02/07/24 05:00
Physical Exam
Constitutional: No Acute Distress and Obese
Cardiovascular: Regular Rate and S1/S2; Negative Murmur or Rub
Pulmonary: Clear and Symmetric; Negative Wheezes or Rales
Gastrointestinal: Soft, Non Tender, Distended and Normal Bowel Sounds
Skin: Warm and Dry; Negative Rash or Jaundice
Objective Data
Lab Data
Lab Results
02/07/24 04:41
02/07/24 04:41
ESR 95 mm/hour (0-20) H 01/28/24 07:14
PT 27.4 Sec (11.4-14.6) H 01/31/24 08:53
INR 2.50 01/31/24 08:53
APTT Cancelled 02/03/24 10:45
Estimated Creat Clear 53 ml/min 02/07/24 04:41
Lactic Acid 1.1 mmol/L (0.7-2.0) 01/31/24 04:35
Total Bilirubin 0.5 mg/dl (0.2-1.3) 02/07/24 04:41
AST 34 U/L (17-59) 02/07/24 04:41
ALT 15 U/L (0-50) 02/07/24 04:41
Alkaline Phosphatase 160 U/L (38-126) H 02/07/24 04:41
C-Reactive Protein > 270.00 mg/L (0.0-10.00) H 01/28/24 07:41
Most recent labs reviewed.
Micro Results:
02/06/24 10:25 C. difficile GDH Antigen & Toxins - Final
Feces/Stool Negative for toxigenic C.difficile
- Final
Negative for Norovirus GI and GII.
01/31/24 12:12 Blood Culture - Final
Blood/Venous No Growth - Final Report
01/31/24 11:15 Blood Culture - Final
Blood/Venous No Growth - Final Report
01/28/24 12:25 Blood Culture - Final
Blood/Venous No Growth - Final Report
01/29/24 15:30 Tissue Culture - Final
Foot - Left S aureus-Methicillin Sensitive
Gram Stain - Final
01/28/24 14:04 MRSA Screen - Final
Nose No Methicillin Resistant Staphylococcus aureus isolated.
--- NOTE | 2024-02-07 09:22 | PTCARENOTE ---
pt transferred with all belongings to IMU to room 3356, report given to JETHRO Carmona.
--- NOTE | 2024-02-07 10:00 | PTCARENOTE ---
Pt received from ICU via bed. Presents as assessed. Satting low 90's on 10L [facility]. Updated on plan of care.
--- NOTE | 2024-02-07 10:14 | W.PN.NEPH.PH ---
Today's Communication / Plan
-
Hold further Lasix
Ordered normal IV fluids given for worsening hypernatremia
Assessment/Plan
-
Impression:
RAUL
CKD 3b (1.6)
Metabolic acidosis
Left plantar foot ulceration with gangrenous changes s/p debridement
Ischemic cardiomyopathy
History of hypertension
History of diabetes
Profound peripheral vascular disease
Diabetes
Plan:
cr now baseline and non oliguric
Hypernatremia exacerbating
will add hypotonic IVFs for 1 liter
hold PO lasix today , repeat echo no change, EF 35%
BP stable on low dose BB
Holding Jardiance, metformin, spironolactone and KARL inhibitor at this time
dose meds renally, abx per ID
d/w and nursing
-
-
Date of Service: February 07, 2024
CC / HPI / ROS
-
Chief Complaint:
RAUL with CKD
History of Present Illness:
cr stable 1.4, sodium up at 148
non oliguric with sosa
Hemodynamically stable
P.o. intake limited
Review of Systems:
extubated 02/04
on 3lit of O2
wt no change
no cp or sob at rest
Labs
-
Labs:
WBC 14.4 10^3/uL (4.8-10.8) H 02/07/24 04:41
RBC 3.82 10^6/uL (4.70-6.10) L 02/07/24 04:41
Hgb 9.6 g/dL (13.0-18.0) L 02/07/24 04:41
Hct 32.6 % (39.0-52.0) L 02/07/24 04:41
Plt Count 266 10^3/uL (130-400) 12/04/24 04:41
Sodium 148 mmol/L (135-145) H 02/07/24 04:41
Potassium 4.9 mmol/L (3.5-5.1) 12 04:41
Chloride 109 mmol/L (98-107) H 02/07/24 04:41
Carbon Dioxide 34 mmol/L (22-30) H 02/07/24 04:41
BUN 44 mg/dl (9-20) H 02/07/24 04:41
Creatinine 1.4 mg/dL (0.7-1.3) H 02/07/24 04:41
eGFR 52.41 02/07/24 04:41
Glucose 189 mg/dl (70-99) H 02/07/24 04:41
Calcium 7.9 mg/dl (8.4-10.2) L 02/07/24 04:41
Phosphorus 3.7 mg/dl (2.5-4.5) 02/07/24 04:41
Gac-R-Nzborcdduuf Pept 6410 pg/ml 02/07/24 04:41
Albumin 2.7 g/dl (3.5-5.0) L 02/07/24 04:41
Physical Exam
-
Vital Signs:
Vital Signs
Temp Pulse Resp BP Pulse Ox
98.4 F 110 24 130/71 91
02/07/24 07:45 02/07/24 09:04 02/07/24 09:04 02/07/24 09:00 02/07/24 09:39
Cardiovascular:: Regular rate and rhythm
Lung Excursion:: Abnormal ( decreased BS)
Abdomen:: Nontender and Soft
Extremity Edema:: None: Bilateral:
Sosa Catheter: Yes
[2024-02-07] MEDS: SODIUM CHLORIDE 1009.625 MEQ IV (11:19)
--- NOTE | 2024-02-07 12:11 | W.PN.HOSP.TC ---
Addendum entered and electronically signed by Conrado Fernández MD 02/07/24 18:20:
Assessment and Plan
Acute on chronic hypoxemic respiratory failure requiring mechanical ventilator
-successfully extubated
-wean o2 to home as tolerated
-started on ivf for hyperNa, hwoever, o2 requirement went up, though bnp lower then previous still concern for mild hf exacterbation
--therefore, will hold IVF, give diuretics. check cxr
---I wonder if he needs RHC to further assess volume status, this we will need to discuss with cards.
Severe sepsis
-Left foot plantar ulcer with osteomyelitis
-Family opted for salvage of the extremity to avoid amputation
-Long-term antibiotics for at least 6 weeks
-ID following
RAUL on CKD stage IIIb
-Improving
-Follow I's and O's
-Avoid nephrotoxic agents and hypotension
-Monitor urinary output
-Nephrology following
Acute on chronic HFrEF with EF of 30 to 35%, NYHA class IV
-Continue GDMT
-Diurese
-Cardiology following
-Monitor urinary output
-Monitor on telemetry
-Keep K greater than 4
-Keep magnesium greater than 2
Permanent atrial fibrillation
-Continue beta-misha
-Currently on heparin drip plan to transition to Eliquis when able to tolerate p.o.
Type 2 diabetes
-A1c 6.4
-Accu-Cheks
-Sliding scale
-Goal blood glucose 1 40-1 80
-Carb controlled diet/Glucerna will need to tolerate
speech cleared for regular diet
Original Note:
Today's Communication/Plan
-
Monitor patient's bowel movements.
Continue patient's Lasix
Obtain an EKG.
Continue patient on cefazolin and metronidazole.
Assessment / Plan
Assessment / Plan
Assessment -73 Yo M with PMHx significant for peripheral vascular disease, CKD stage IIIb, CAD, permanent A-fib, TIA, hypertension, hyperlipidemia, insulin-dependent type 2 diabetes mellitus, with multiple comorbidities presented to the hospital
with sepsis due to left foot plantar infected diabetic foot ulcer with underlying PAD.
Plan -
Severe sepsis-
Secondary to diabetic left plantar foot ulcer with underlying peripheral vascular disease.
Status post sharp excisional debridement by vascular surgery team on 01/28, lactic acid levels on 01/29 at 5.4.
Left heel bone biopsy growing MSSA, patient was initially started on IV cefepime and vancomycin then transition to meropenem and vancomycin and then to Unasyn.
ID on board, appreciate inputs.
His Unasyn was discontinued yesterday and was switched to cefazolin and metronidazole.
Initial plan for staged revascularization procedure is on hold due to clinical instability and RAUL on CKD that resolved.
Shock-01/29.
Unclear etiology whether septic versus cardiogenic.
CT PE negative for pulmonary embolism, however there is some evidence for mild to moderate pulmonary [place] [address]. Elevated lactic acid levels at 5.4.
Lactic acid levels resolved the subsequent day on 01/30.
Off of Levophed, fentanyl, propofol.
Ventilator dependent respiratory failure- extubated on 02/05/24.
Acute on chronic hypoxic respiratory failure.
CT chest evident for pulmonary edema.
Also history of PHTN, untreated, precapillary likely secondary to ERICK.
midflow nasal cannula requirement went up overnight to 10L from 6l.
Repeat ABG within normal limits.
Partial small bowel obstruction versus ileus.
Surgery on board, recommended to continue advancing diet as tolerated and monitor for symptoms.
Patient currently denies having any nausea however did not pass any gas or bowels since 3 PM in the afternoon yesterday.
Appreciate surgery inputs, continue to monitor patient for symptoms.
RAUL on CKD stage 3b
likely secondaryu to cardiorenal syndrome.
Cr down to 1.5, baseline is at 1.2 '
Continue to trends weights, I and O, and continue Lasix 40mg oral.
Patient is currently at his dry weight 111kgs.
Avoid nephrotoxic agents. Discontinued bicarbonate yesterday.
Renal on board, appreciate inputs.
Acute on Chronic HFrEF -
Likely secondary to sepsis in the setting of pre-existing CAD and heart failure.
Cardiology on board. Appreciate input
Most recent echocardiogram-09/26-EF 30 to 35%.
Continue GDMT as tolerated. Cardiology added metoprolol today.
will reassess tachycardia after taking metoprolol.
Peripheral vascular disease-
No plan for staged revascularization procedure due to clinical instability.
Patient is currently on Eliquis.
Status post left lower extremity arteriogram and stent to SFA, angioplasty to PT per vascular surgery in 09/26.
Permanent A-fib
On metoprolol.
[id number] score-Transitioned back to Eliquis from heparin.
Questionable PVCs on telemetry in the a.m. today. Obtain an EKG.
Hypernatremia -
likely secondary to hemoconcentration from Diuresis.
Speech eval - NPO after intubation yesterday.
Recommended regular diet today.
recommend adequate oral hydratipon.
Discontinue tube feeds.
Reassess for hypernatremia tomorrow.
Leukocytosis-
White blood cell count trending up again.
Suspect secondary to partial small bowel obstruction, not considered as inadequate response to antibiotics.
ID on board, appreciate inputs.
Type 2 diabetes mellitus-
HbA1c at 6.4.
Oofpypvwu-Kkgfzst-15 units daily. Developed hypoglycemia on Tresiba - 02/07/24, diabetes nurse practitioner consulted for diabetes education and management.
Tube feeds discontinued. Overnight insulin requirement was low.
Continue to monitor glucose with tight glycemic control.
Elevated troponins
Type II demand ischemia
Troponins trended down on 02/02.
Cardiology on board.
Previous history of coronary artery disease.
DVT prophylaxis-on Eliquis
CODE STATUS full code
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
CAD-continue his home meds-aspirin.
Hypertension-continue lisinopril.
Hyperlipidemia-continue Lipitor.
TIA
Asthma
Morbid obesity
Hypoglycemia
Investigations -
Chest X-Ray:
02/05/24 -
As above, flip is not particularly well seen on this projection. Tip of the endotracheal tube likely approximately 1.5 cm above the flip, similar to prior. Enteric catheter and left upper extremity PICC in position.
Low lung volumes. Bilateral small pleural effusions and adjacent atelectasis/consolidation.
01/28/24- No acute cardiopulmonary process.
09/14/23- No active cardiopulmonary disease.
Abdomen X ray -
02/01/24- Nasogastric tube is seen with tip in the distal stomach. Study is otherwise stable.
CTA - 01/30/24 -
Scattered mild to moderate calcified plaque of the common carotid arteries, bilaterally. Bilateral bulb calcified plaque and calcified plaque at the ICA origin and proximal internal carotid arteries.
Distal left common carotid artery estimated luminal diameter reduction of 65%. Proximal left ICA estimated luminal diameter reduction of approximately 60%.
Proximal right ICA estimated luminal diameter reduction of approximately 50%.
Bilateral cavernous ICA calcified plaque with estimated luminal diameter reduction of less than 50%.
Normal variant absent right anterior cerebral artery A1 segment, with the A2 segment supplied by a patent anterior to be encasing artery.
Otherwise, no intracranial cerebral artery plaque, stenosis, occlusion, or aneurysm.
The vertebral arteries are patent. Patent basilar artery.
Moderate right and small left pleural effusion. Pulmonary parenchymal consolidation, right greater than left, atelectasis versus pneumonia. Mild superior mediastinal adenopathy.
CT Scan: CHEST 10/18/22- Stable small perifissural pulmonary nodules along the left major fissure. Stable mild small reticulonodular interstitial opacities in the bilateral upper lobes, right greater than left.
CAP 05/04/22- No acute pathology of the chest, abdomen and pelvis identified. Few left upper and lower lobe pulmonary nodules. Bilateral small renal cysts. Bilateral too small to characterize hypodense renal lesions, likely benign cysts. Moderate
fecal material throughout the colon. Mild diverticulosis.
Echo: 12/12/23- Moderately reduced left ventricular systolic function. Estimated left ventricular ejection fraction is 35-40% . Wall motion analysis is limited due to image quality. Mild mitral regurgitation.
Compared to the previous report 12/12/2023 findings are similar no significant change previously estimated ejection fraction 35%
PFT's: 03/29/23 FEV1 1.91 L 77%, FVC 2.57 L 75%, ratio 74. TLC 3.63 L 59%, DLCO 60%--moderately severe restriction, mild diffusion impairment
Anticipated Discharge: Today
Subjective/Interval History
-
Date of Service: February 07, 2024
Patient's last reported bowel movement was yesterday in the afternoon. It was liquid. However patient states that his last bowel movement was yesterday night. he also states that he did not pass any gas since yesterday afternoon?
General surgery saw the patient yesterday and there is some concern for small bowel obstruction which is partial versus ileus.
Objective Data
-
Labs:
Laboratory Results
02/07/24
04:41
WBC 14.4 H
Hgb 9.6 L
Hct 32.6 L
Plt Count 266
Sodium 148 H
Potassium 4.9
Chloride 109 H
Carbon Dioxide 34 H
BUN 44 H
Creatinine 1.4 H
Glucose 189 H
Calcium 7.9 L
Total Bilirubin 0.5
AST 34
ALT 15
Alkaline Phosphatase 160 H
Vital Signs:
Vital Signs
Temp Pulse Resp BP Pulse Ox
98.4 F 110 24 130/71 91
02/07/24 07:45 02/07/24 09:04 02/07/24 09:04 02/07/24 09:00 02/07/24 09:39
I&O
02/06/24 02/07/24 02/08/24
06:59 06:59 06:59
Intake Total 675 / 720 1675 / 1675 240 / 240
Output Total 1979 475 / 475 550 / 550
Balance -1305 / -1435 1200 / 1200 -310 / -310
Review of Systems
-
History Source: Patient
Constitutional: Reports No Symptoms
Respiratory: Reports No Symptoms
Cardiac: Reports No Symptoms
Abdomen/GI: Reports No Symptoms
Genitourinary: Reports No Symptoms
Skin: Reports No Symptoms
Neuro: Reports No Symptoms
Hematologic / Lymphatic: Reports No Symptoms
Allergy / Immunology: Reports No Symptoms
Physical Exam
-
General: Respiratory Distress (mild) and Other (on 10l midflow nasal cannula)
HEENT: Moist Mucous Membranes
Respiratory: Clear to Auscultation (superiorly) and Crackles (in the lower lobes); Negative Wheezes, Rales or Rhonchi
Cardiac: Regular Rhythm and S1/S2; Negative Murmur, Rub or Gallop
GI: Soft, Nontender, Normal Bowel Sounds and Other (Could not comment on distension due to huge abdomen from obesity.)
Genito-urinary: No Costovertebral Tender
Musculoskeletal: No Clubbing, No Cyanosis and No Edema
Skin: Warm
Neuro: No Motor Deficits
Hematologic / Lymphatic: No Lymphadenopathy
Psych: Calm
Data Reviewed
-
Diagnostic Radiology: Image personally visualized and interpreted, Report Reviewed by me and Discussed with Physician
Medical Tests (Nuc Med, Echo etc): Image personally visualized and interpreted, Report Reviewed by me and Discussed with Physician
Labs: Labs Reviewed by me and Discussed with Physician
--- NOTE | 2024-02-07 12:51 | CM ---
Addendum entered by Gaurav Otto 02/07/24 16:16:
CM spoke to [facility] director workforce management and she confirmed that pt will be accepted for admission tomorrow. director industrial museum requested:
1. COVID test on the day of discharge
2. PICC line information be faxed prior to discharge.
3. When COVID test result available and PICC line information faxed please confirm with [facility] director workforce management regarding final YES for admission.
D/c plan: [facility].
Original Note:
CM following re: discharge planning.
Reviewed pt's chart, met with pt. Pt's spouse and daughter Kristine at bedside.
Both pt and his family are aware that [facility], [facility] and [facility] offered a bed and pt and his family preferred [facility].
IMM reviewed, placed on chart, pt has a copy.
D/C plan: [facility] based on bed availability on the day of discharge.
CM will follow to assist pt with discharge to [facility].
--- NOTE | 2024-02-07 12:52 | W.PN.VS ---
Today's Communication / Plan
-
Discussed with Dr. Castillo
Assessment/Plan
-
POD s/p left heel debridement
Plan:
-Holding off on arteriogram
-Continue Prevalon boots
-Continue dressing changes
-Patient is at high risk for limb loss due to extent of heel wound and bone exposure
Subjective Data
-
Date of Service: February 07, 2024
Patient seen at bedside this a.m. with Dr. Castillo. Patient offers no complaints at this time. Patient extubated yesterday. He will redressed at bedside.
Objective Data
-
Vital Signs
Temp Pulse Resp BP Pulse Ox
98.4 F 110 24 130/71 91
02/07/24 07:45 02/07/24 09:04 02/07/24 09:04 02/07/24 09:00 02/07/24 09:39
Intake and Output
02/06/24 02/07/24 02/08/24
06:59 06:59 06:59
Intake Total 675 / 720 1675 / 1675 240 / 240
Output Total 1979 475 / 475 550 / 550
Balance -1305 / -1435 1200 / 1200 -310 / -310
Intake:
Oral fluids 10 / 10 1450 / 1450 240 / 240
IV fluids (Total) 0 / 0
Precedex 0 / 0
IV piggybacks 0 / 0
Tube feeding 340 / 360 100 / 100
Feeding tube flush amount 285 / 310 125 / 125
Fecal management system 40 / 40
irrigation (mL)
Rectum 40 / 40
Output:
Urine, Street 1979 475 / 475 350 / 350
Urine, Voided 200 / 200
Other:
How many times incontinent 1 2
SATURATED amount urine
Number of immeasurable emeses? 0
Lab Results
02/07/24 04:41
02/07/24 04:41
Calcium 7.9 mg/dl (8.4-10.2) L 02/07/24 04:41
Phosphorus 3.7 mg/dl (2.5-4.5) 02/07/24 04:41
Magnesium 2.3 mg/dl (1.6-2.3) 02/07/24 04:41
Total Bilirubin 0.5 mg/dl (0.2-1.3) 02/07/24 04:41
Direct Bilirubin 0.7 mg/dl (0.0-0.4) H 01/31/24 04:35
AST 34 U/L (17-59) 02/07/24 04:41
ALT 15 U/L (0-50) 02/07/24 04:41
Alkaline Phosphatase 160 U/L (38-126) H 02/07/24 04:41
Total Protein 6.6 g/dl (6.3-8.2) 02/07/24 04:41
Albumin 2.7 g/dl (3.5-5.0) L 02/07/24 04:41
Physical Exam
-
AAOx3
No tachypnea on NC
No tachycardia
Abd soft, slightly distended
Heel images below
Left heel
[2024-02-07] MEDS: NOVOLOG FLEXPEN 7 UNITS SC ×2 (13:19→18:21)
[2024-02-07] MEDS: NOVOLOG FLEXPEN-MODERATE RESISTANCE 1 UNITS SC ×2 (13:19→18:21)
[2024-02-07 13:29] LABS: Glucose - Point of Care 176 mg/dl (70-99)
--- NOTE | 2024-02-07 14:18 | W.PN.UPDATE ---
Update Note
Progress Note Update
Patient Desat to low 80s with tachypnea, resp rate upto 38. Nurse called.
Saw an examined patient on bedside.
Hold IVF, Bipap 18/8, at setting 12/5 his tidal volume is only at 350.
IV lasix 20mg stat.
Obtain repeat BMP in the pm.
--- NOTE | 2024-02-07 14:23 | PTCARENOTE ---
Addendum entered by Kristine Pugh 02/07/24 14:32:
Order received for IV lasix, administered as ordered. Pt for portable CXR.
Original Note:
Pt becoming tachypneic with rates in the 30's, desatting to the mid 80's. Increased to 15L MFNC without improvement, RT at bedside to place pt on bipap. Sat's improving to low 90's. Dr. Ennis and Dr. Edward notified, Dr Rios to bedside.
Awaiting further orders.
[2024-02-07] MEDS: LASIX 40 MG IV (14:30)
--- NOTE | 2024-02-07 14:44 | W.PN.GS2 ---
Today's Communication / Plan
-
remain on CLD for today
Assessment / Plan
-
73M with suspected ileus in setting of nonhealing diabetic foot wound
Destiny CLD, denies abd pain, denies nausea
Abd exam benign
KUB today with mild sb dilation
Will adv diet cautiously in light of pulm issues
Plan:
Stay on clears until more robust bowel function
If he develops n/v would place NGT and make NPO
All other care as per primary team
GS will follow
Subjective Data
-
Date of Service: February 07, 2024
Denies n/v, denies abd pain, hungry, destiny 100% of clear trays, jean BM/flatus
Objective Data
-
Intake and Output
02/06/24 02/07/24 02/08/24
06:59 06:59 06:59
Intake Total 675 / 720 1675 / 1675 240 / 240
Output Total 1979 475 / 475 550 / 550
Balance -1305 / -1435 1200 / 1200 -310 / -310
Intake:
Oral fluids 10 / 10 1450 / 1450 240 / 240
IV fluids (Total) 0 / 0
Precedex 0 / 0
IV piggybacks 0 / 0
Tube feeding 340 / 360 100 / 100
Feeding tube flush amount 285 / 310 125 / 125
Fecal management system 40 / 40
irrigation (mL)
Rectum 40 / 40
Output:
Urine, Street 1979 475 / 475 350 / 350
Urine, Voided 200 / 200
Other:
How many times incontinent 1 2
SATURATED amount urine
Number of immeasurable emeses? 0
Vital Signs
Temp Pulse Resp BP Pulse Ox
98.4 F 110 24 130/71 91
02/07/24 07:45 02/07/24 09:04 02/07/24 09:04 02/07/24 09:00 02/07/24 09:39
Lab Results
02/07/24 04:41
02/07/24 04:41
Calcium 7.9 mg/dl (8.4-10.2) L 02/07/24 04:41
Phosphorus 3.7 mg/dl (2.5-4.5) 02/07/24 04:41
Magnesium 2.3 mg/dl (1.6-2.3) 02/07/24 04:41
Total Bilirubin 0.5 mg/dl (0.2-1.3) 02/07/24 04:41
Direct Bilirubin 0.7 mg/dl (0.0-0.4) H 01/31/24 04:35
AST 34 U/L (17-59) 02/07/24 04:41
ALT 15 U/L (0-50) 02/07/24 04:41
Alkaline Phosphatase 160 U/L (38-126) H 02/07/24 04:41
Total Protein 6.6 g/dl (6.3-8.2) 02/07/24 04:41
Albumin 2.7 g/dl (3.5-5.0) L 02/07/24 04:41
Physical Exam
-
Gen: NAD
Pulm: audible rales
Abd: soft, obese, nt, difficult to discern distention
[2024-02-07] MEDS: LIPITOR 80 MG PO (18:21)
[2024-02-07 18:27] LABS: Glucose - Point of Care 197 mg/dl (70-99)
[2024-02-07 20:43] LABS: Glucose - Point of Care 141 mg/dl (70-99)
[2024-02-07 21:36] LABS: Blood Urea Nitrogen 40 mg/dl (9-20); Calcium 7.9 mg/dl (8.4-10.2); Carbon Dioxide 32 mmol/L (22-30); Chloride 105 mmol/L (98-107); Estimated Creatinine Clearance 58 ml/min; Glucose 150 mg/dl (70-99); Potassium 4.3 mmol/L (3.5-5.1); Sodium 146 mmol/L (135-145); eGFR 57.29
[2024-02-07] MEDS: PEPCID 20 MG PO (21:39)
[2024-02-07] MEDS: LANTUS 0.2 UNITS SC (23:18)
[2024-02-07 23:31] LABS: Glucose - Point of Care 136 mg/dl (70-99)
[2024-02-08] VITALS (16 sets, daily range): BP systolic 114–153; BP diastolic 64–94; PULSE 2–150; O2SAT 91–93; BMI 38.3
[2024-02-08] MEDS: ANCEF 10 IV ×3 (02:38→17:56)
[2024-02-08 05:05] LABS: Hemoglobin 9.6 g/dL (13.0-18.0); Mean Corpuscular Volume 86.7 fL (80.0-94.0); Platelet Count 253 10^3/uL (130-400); Red Blood Cell Count 3.69 10^6/uL (4.70-6.10); Red Cell Dist. Width 20.1 % (11.5-14.5); White Blood Cell Count 14.7 10^3/uL (4.8-10.8)
[2024-02-08 05:27] LABS: Blood Urea Nitrogen 37 mg/dl (9-20); Calcium 7.9 mg/dl (8.4-10.2); Carbon Dioxide 33 mmol/L (22-30); Chloride 105 mmol/L (98-107); Estimated Creatinine Clearance 56 ml/min; Glucose 146 mg/dl (70-99); Potassium 4.3 mmol/L (3.5-5.1); Sodium 147 mmol/L (135-145); eGFR 57.29
--- NOTE | 2024-02-08 06:03 | PTCARENOTE ---
Pt complying with BiPAP for periods of time. Pt on Midflow 12-15L when off bipap, SPO2 93-95%. Pt getting very upset with self when incontinent, Pt HR going up to 120's when upset. Assessment care and vitals as charted.
--- NOTE | 2024-02-08 07:44 | PN.DE.MGMTRT ---
Insulin Management
- -
02/08/2024: Diabetes management F/U:
73 years old male with multiple comorbidities admitted to the hospital on 01/27 with sepsis due to left foot plantar infected ulcer 2/2 diabetic foot ulcer and peripheral vascular disease S/P left heal debridement. Diabetes consult requested on 02/04
for Hyperglycemia.
PMH: HTN, HLD, CAD, PVD, CHF, COPD and T2DM. Was taking Jardiance 10mg daily, Tresiba 45 units daily, metformin 1000mg BID and NovoLog 7-20 units AC. A1C 6.4%, Cr 1.5, eGFR 48.25. 01/30 started on tube feeds contributing to Hyperglycemia. 02/01 was
initiate on CC glycemic protocol, developed hypoglycemia on 02/03 while on insulin drip. Was transitioned off on 02/03 to SQ insulin- HS Lantus 5 units and moderate corrective only by Dr. Marcano.
Glucose has remained elevated since transition, 241 to 415, requiring high doses 3-9 units of corrective insulin.
Pt awake, alert, sitting up in bed, offers no complaints. and Dtr- Lalitha at bedside, able to participate in discussion about diabetes mgt
Per Vascular surgeon, OR tissue cultures of bone-->Staph aureus (confirming osteomyelitis), tentative OR for amputation of Left foot next week.
02/04 Started on clear liquid diet. 02/05 Started AC NovoLog. Glucose has improved and in range, premeal 176 to 197
Received Lantus 20 units @ HS, FBG 146(v), 136 POC this AM.
Will make no changes to current regimen: Lantus to 20 units, NovoLog 7 units AC and moderate corrective insulin AC.
States was taking Jardiance at home, doesn't want to take Farxiga, says he had severe SE and was discontinued.
Will cont to follow and adjust insulin if needed.
Diabetes History
- -
Type of Diabetes: 2 requiring insulin
Pre-Admission Diabetes Regimen
02/07/24 02/08/24
20:30 04:46
Creatinine 1.3 1.3
Lab Results
Hemoglobin A1c 6.4 % (4.0-5.6) H 01/29/24 07:22
Insulin Pump Settings
IP Diabetes Regimen
02/07/24 02/07/24 02/07/24
07:37 13:18 18:17
Glucose
POC Glucose 217 H 176 H 197 H
02/07/24 02/07/24 02/07/24
20:30 20:31 23:19
Glucose 150 H
POC Glucose 141 H 136 H
02/08/24
04:46
Glucose 146 H
POC Glucose
Meal type: Dinner
Meal type: Breakfast
Amount consumed: 50%
Amount consumed: 100%
Patient Education
--- NOTE | 2024-02-08 07:53 | W.PN.UPDATE ---
Update Note
Progress Note Update
Seen and evaluated. Complicated course post admission with sepsis on admission, heel debridement, postoperative prolonged intubation and now likely ileus. Left heel wound examined on rounds today. The wound remains dry without good granulation
tissue. No roger infection or purulence. Bone exposed without any evidence of granulation extending into that region.
OR tissue cultures of bone demonstrate Staph aureus (confirming osteomyelitis).
Plan/extensive heel gangrene and osteomyelitis status postdebridement. I unfortunately do not think his foot is going to be salvageable and he remains somewhat tenuous in the ICU. Discussed with patient likely need for amputation upcoming. He
understands. He is fully cognizant. Will loop back around to discuss further with his family, and await medical optimization. Potentially plan next week.
[2024-02-08 07:56] LABS: Glucose - Point of Care 156 mg/dl (70-99)
--- NOTE | 2024-02-08 08:06 | W.PN.CD ---
Today's Communication / Plan
-
-was on Lasix 40 mg PO daily . CXR 02/07/24 with mild interstitial edema and small effusion Lasix 40mg IV given 02/07/24.
- weights stable
- remainson O2.
- can cautiously give addtional IV lasix . Need to monitor renal function and sodium
- daily assessment of diuretic
- continue to optimize resp status in anticipation of amputation
- qlisquis will need ot be held 2 days prior of surgery. Timing of surgery as per vasculr
Impression / Plan
-
Impression/Plan: 73 y/o male (known to Dr. Alvarez, his primary [employer]) with HTN, HLD, IDDM, COPD, permanent atrial fibrillation (on apixaban), CAD with ICMO, PAD with prior LSFA endovascular intervention, and obesity admitted with
non-healing left foot ulcer/wet gangrene complicated by sepsis now s/p left heal debridement, subsequently complicated by VDRF and hypotension requiring pressor support.
#VDRF/HFrEF (EF 35%)
-Extubated.
-Weight appears close to dry weight.
-was on Lasix 40 mg PO daily . CXR 02/07/24 with mild interstitial edema and small effusion Lasix 40mg IV given 02/07/24.
- weights stable
- remains on O2.
- can cautiously give addtional IV lasix . Need to monitor renal function and sodium
- daily assessment of diuretic
#Left heal wet gangrene/septic shock/ osteomyelitis
-shock improved
-S/P left heal debridement. Vascular has seen and anticipates amputation
-Continue antibiotics per ID.
-No current plans for further surgical management.
# pre op assessment - Patient will likely require amputation. Increased risk due to history of cardiomyopathy,CAD and afib. Considering the importance of surgery withsepsis and osteo, it is reasonable to proceed with surgery this admission.
would continue to optimize resp status pre operatively.
-will need to hold eliquis 48 hour s pre op.
would continue to optimize resp status
-
#Ischemic cardiomyopathy
-Chronic.
-LVEF = 35%.
-GDMT as hemodynamics will allow.
- Toprol-XL 25 mg daily.
- CXR 02/07/24 and diuretics as above
#Permanent Atrial fibrillation
-AF with RBBB (not new).
-Heart rates stable
-CHADS2-Vasc = 6 (CHF, HTN, Age x2, DM, vascular disease).
-Continue Eliquis.
#Coronary artery disease
-Chronic, stable.
-Prior history of NC. Chronically occluded LAD.
-Continue ASA.
#CKD -stable
#Anemia
-Chronic, stable.
Critical Care Time = 32 minutes.
Subjective/Interval History:
Patient with some nausea yesterday, but feels better this a.m.; able to tolerate PO intake.
DATA:
Transthoracic Echocardiogram, 02/05/2024:
-Left ventricular ejection fraction is 35%; no significant valvular disease.
Cardiac Catheterization, 09/13/2023:
CONCLUSIONS:
1. Right dominant circulation with a 50% lesion in the distal third of the RPDA, a diffusely diseased, small first obtuse marginal, a 30% lesion in the mid ramus, a 40% lesion in the origin of the first diagonal and a chronic total occlusion of the
mid LAD (known since cardiac catheterization in 1999).
2. Normal filling pressures (LVEDP = 10 mmHg, PCWP = 13 mmHg at 105.7 kg).
3. Severely impaired cardiac function (cardiac index = 1.36 L/min/m�, a VO2 difference 8.63 volume percent).
4. Mild precapillary pulmonary hypertension (mean PA pressure = 23 mmHg, PVR = 3.44 Moser units).
5. Significantly elevated peripheral vascular resistance (1787 dynes*seconds*cm^5).
Physical Exam
Vital Signs/Labs
Vital Signs
Temp Pulse Resp BP Pulse Ox
98.5 F 99 36 134/65 94
02/08/24 05:12 02/08/24 06:06 02/08/24 06:06 02/08/24 06:06 02/08/24 06:06
02/07/24 02/08/24 02/09/24
06:59 06:59 06:59
Actual Weight 111.5 kg 107.5 kg
02/08/24 04:46
02/08/24 04:46
PT 27.4 Sec (11.4-14.6) H 01/31/24 08:53
INR 2.50 01/31/24 08:53
APTT Cancelled 02/03/24 10:45
Magnesium 2.3 mg/dl (1.6-2.3) 02/07/24 04:41
Triglycerides 150 mg/dl (10-149) H 02/05/24 03:31
01/31/24 02/07/24
09:09 04:41
Kkw-I-Cpiaqesmvmf Pept 17760 6410
Physical Exam
Constitutional: No acute distress
Cardiovascular: Rhythm/rate is irregular
Respiratory: Wheeze Absent, Rhonchi Absent and Other (few crackles at bases )
GI: Soft
Neuro/Psych: Alert
Data Reviewed
-
Date of Service: February 08, 2024
Medical Decision Making: Reviewed Test Results
Echo: Report Reviewed by me
Medical Tests (PFT, Pathology etc): Report Reviewed by me
Labs: Labs Reviewed by me
--- NOTE | 2024-02-08 08:36 | W.PN.ID1 ---
Date of Service
Date of Service: February 08, 2024
Today's Communication
- c/w cefazolin and metronidazole
- note consideration for amputation, will follow clinically
Assessment / Plan
Osteomyelitis of the L heel
Left heel ulcer with wet gangrene s/p debridement to bone
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
RAUL on CKD
Class II/III obesity
- nausea, diarrhea; distal partial small bowel obstruction and ileus
- take metronidazole with food, BID dosing - if made NPO please switch to IV route
- C diff and norovirus negative
- 01/28 tissue culture with MSSA, no anaerobic culture done
- c/w cefazolin and metronidazole
- note consideration for amputation, will follow clinically; if foot is amputated, then would not require detention antibiotics
Chief Complaint
-: Other (calceneal osteomyelitis, L foot)
Subjective / Review of Systems
afebrile
bp stable
incontinence
getting diuresis
some return of bowel function
Vital Signs / Physical Exam
Vital Signs
Vital Signs
Temp Pulse Resp BP Pulse Ox
98.5 F 99 36 134/65 95
02/08/24 05:12 02/08/24 06:06 02/08/24 06:06 02/08/24 06:06 02/08/24 08:09
Physical Exam
Constitutional: No Acute Distress and Chronically Ill
Cardiovascular: Regular Rate and S1/S2; Negative Murmur or Rub
Pulmonary: Clear and Symmetric; Negative Wheezes or Rales
Gastrointestinal: Soft, Non Tender, Non Distended and Normal Bowel Sounds
Skin: Warm and Dry; Negative Rash or Jaundice
Objective Data
Lab Data
Lab Results
02/08/24 04:46
02/08/24 04:46
ESR 95 mm/hour (0-20) H 01/28/24 07:14
PT 27.4 Sec (11.4-14.6) H 01/31/24 08:53
INR 2.50 01/31/24 08:53
APTT Cancelled 02/03/24 10:45
Estimated Creat Clear 56 ml/min 02/08/24 04:46
Lactic Acid 1.1 mmol/L (0.7-2.0) 01/31/24 04:35
Total Bilirubin 0.5 mg/dl (0.2-1.3) 02/07/24 04:41
AST 34 U/L (17-59) 02/07/24 04:41
ALT 15 U/L (0-50) 02/07/24 04:41
Alkaline Phosphatase 160 U/L (38-126) H 02/07/24 04:41
C-Reactive Protein > 270.00 mg/L (0.0-10.00) H 01/28/24 07:41
Most recent labs reviewed.
Micro Results:
02/06/24 10:25 C. difficile GDH Antigen & Toxins - Final
Feces/Stool Negative for toxigenic C.difficile
- Final
Negative for Norovirus GI and GII.
01/31/24 12:12 Blood Culture - Final
Blood/Venous No Growth - Final Report
01/31/24 11:15 Blood Culture - Final
Blood/Venous No Growth - Final Report
01/28/24 12:25 Blood Culture - Final
Blood/Venous No Growth - Final Report
01/29/24 15:30 Tissue Culture - Final
Foot - Left S aureus-Methicillin Sensitive
Gram Stain - Final
01/28/24 14:04 MRSA Screen - Final
Nose No Methicillin Resistant Staphylococcus aureus isolated.
[2024-02-08] MEDS: DESENEX/MITRAZOL/ZEASORB 1 APPLIC TOPICAL ×2 (09:04→20:54)
[2024-02-08] MEDS: FLAGYL 500 MG PO ×2 (09:05→20:54)
[2024-02-08] MEDS: LOW STRENGTH ASPIRIN 81 MG TUBE (09:05)
[2024-02-08] MEDS: TOPROL XL 25 MG PO (09:05)
[2024-02-08] MEDS: ELIQUIS 5 MG PO ×2 (09:05→20:54)
[2024-02-08] MEDS: NOVOLOG FLEXPEN-MODERATE RESISTANCE 1 UNITS SC ×2 (09:06→12:20)
[2024-02-08] MEDS: NOVOLOG FLEXPEN 7 UNITS SC ×3 (09:08→17:56)
--- NOTE | 2024-02-08 10:21 | CM ---
Patient who was extubated 02/04, S/P left heel debridement. O2 12L midflow. BiPAP. Clear liquids. Receiving IV Abx. PICC. PT/OT 02/05 recommend skilled rehab.
Per Vascular surgery notes today: likely need for amputation due to extensive left heel gangrene and osteomyelitis, potentially next week.
Per ID notes 02/06: will require a 6 week course of IV cefazolin and oral metronidazole (through 03/09/24). Script for OPAT placed on paper chart.
Noting prior CM notes indicating [facility] had anticipated admission today.
Phone call to Ronna Adms [facility]; left message with clinical update and informing her patient is medically acute and not close to being ready for d/c. Will update [facility] and re-contact for bed availability when close to d/c.
CM continuing to follow for d/c needs.
Plan follow patient's O2, BiPAP, mobility and IV Abx needs for d/c.
Plan [facility] SN[facility] when medically ready.
[2024-02-08] MEDS: LASIX 20 MG IV (10:36)
--- NOTE | 2024-02-08 12:02 | W.PN.NEPH.PH ---
Today's Communication / Plan
-
Agree with IV Lasix
Patient needs to keep up with p.o. fluid intake with Lasix and hypernatremia
I am hesitant to give hypotonic IV fluids with his respiratory status
Assessment/Plan
-
Impression:
RAUL
CKD 3b (1.6)
Metabolic acidosis
Left plantar foot ulceration with gangrenous changes s/p debridement
Ischemic cardiomyopathy EF 30%
History of hypertension
History of diabetes
Profound peripheral vascular disease
Diabetes
Plan:
CXR reviewed with mild interstitial edema, EF
cr now baseline and non oliguric
Hypernatremia persist but patient volume overloaded
lasix again, 20 mg IV was provided by cardiology
BP stable on low dose BB
Holding Jardiance, metformin, spironolactone and KARL inhibitor at this time
dose meds renally, abx per ID
d/w and nursing
-
-
Date of Service: February 08, 2024
CC / HPI / ROS
-
Chief Complaint:
RAUL with CKD
History of Present Illness:
cr stable 1.3, sodium up at 147
non oliguric with sosa
Hemodynamically stable
P.o. intake limited
Review of Systems:
extubated 02/04
Remains on nasal cannula oxygen
wt down but I do not believe the weight recorded
no cp or sob at rest
Labs
-
Labs:
WBC 14.7 10^3/uL (4.8-10.8) H 02/08/24 04:46
RBC 3.69 10^6/uL (4.70-6.10) L 02/08/24 04:46
Hgb 9.6 g/dL (13.0-18.0) L 02/08/24 04:46
Hct 32.0 % (39.0-52.0) L 02/08/24 04:46
Plt Count 253 10^3/uL (130-400) 02/08/24 04:46
Sodium 147 mmol/L (135-145) H 02/08/24 04:46
Potassium 4.3 mmol/L (3.5-5.1) 02/08/24 04:46
Chloride 105 mmol/L (98-107) 02/08/24 04:46
Carbon Dioxide 33 mmol/L (22-30) H 02/08/24 04:46
BUN 37 mg/dl (9-20) H 02/08/24 04:46
Creatinine 1.3 mg/dL (0.7-1.3) 02/08/24 04:46
eGFR 57.29 02/08/24 04:46
Glucose 146 mg/dl (70-99) H 02/08/24 04:46
Calcium 7.9 mg/dl (8.4-10.2) L 02/08/24 04:46
Phosphorus 3.7 mg/dl (2.5-4.5) 02/07/24 04:41
Ipp-F-Cmrcphghrrs Pept 6410 pg/ml 02/07/24 04:41
Albumin 2.7 g/dl (3.5-5.0) L 02/07/24 04:41
Physical Exam
-
Vital Signs:
Vital Signs
Temp Pulse Resp BP Pulse Ox
98.4 F 107 35 141/74 94
02/08/24 11:14 02/08/24 10:36 02/08/24 10:17 02/08/24 10:36 02/08/24 11:23
Cardiovascular:: Regular rate and rhythm
Respiratory:: Bilateral: Coarse and Bilateral: Wheeze
Lung Excursion:: Normal
Abdomen:: Nontender
Bowel Sounds:: Normal
Extremity Edema:: +1: Bilateral:
Sosa Catheter: No
[2024-02-08 12:04] LABS: Glucose - Point of Care 182 mg/dl (70-99)
--- NOTE | 2024-02-08 12:37 | W.PN.HOSP.TC ---
Addendum entered and electronically signed by Conrado Fernández MD 02/08/24 14:41:
Assessment and Plan
Acute on chronic hypoxemic respiratory failure requiring mechanical ventilator
-successfully extubated
-wean o2 to home as tolerated
-started on ivf for hyperNa, hwoever, o2 requirement went up, though bnp lower then previous still concern for mild hf exacerbation
--therefore, will hold IVF, give additional IV diuretics to further optimize resp status in prep for potential OR with Vascular surgery
---I wonder if he needs RHC to further assess volume status, this we will need to discuss with cards.
Severe sepsis
-Left foot plantar ulcer with osteomyelitis
-Family opted for salvage of the extremity to avoid amputation
-Long-term antibiotics for at least 6 weeks
-ID following
RAUL on CKD stage IIIb
-Improving
-Follow I's and O's
-Avoid nephrotoxic agents and hypotension
-Monitor urinary output
-Nephrology following
Acute on chronic HFrEF with EF of 30 to 35%, NYHA class IV
-Continue GDMT
-Diurese
-Cardiology following
-Monitor urinary output
-Monitor on telemetry
-Keep K greater than 4
-Keep magnesium greater than 2
Permanent atrial fibrillation
-Continue beta-misha
-Currently on heparin drip plan to transition to Eliquis when able to tolerate p.o.
Type 2 diabetes
-A1c 6.4
-Accu-Cheks
-Sliding scale
-Goal blood glucose 1 40-1 80
-Carb controlled diet/Glucerna will need to tolerate
speech cleared for regular diet
Original Note:
Today's Communication/Plan
-
Gentle diuresis today.
Trend weights, trend I's and O's.
Continue antibiotics per ID.
Assessment / Plan
Assessment / Plan
Assessment -73 Yo M with PMHx significant for peripheral vascular disease, CKD stage IIIb, CAD, permanent A-fib, TIA, hypertension, hyperlipidemia, insulin-dependent type 2 diabetes mellitus, with multiple comorbidities presented to the hospital
with sepsis due to left foot plantar infected diabetic foot ulcer with underlying PAD.
Plan -
Severe sepsis-
Secondary to diabetic left plantar foot ulcer with underlying peripheral vascular disease.
Status post sharp excisional debridement by vascular surgery team on 01/28, lactic acid levels on 01/29 at 5.4.
Left heel bone biopsy growing MSSA, patient was initially started on IV cefepime and vancomycin then transition to meropenem and vancomycin and then to Unasyn.
ID on board, appreciate inputs.
Patient is currently on cefazolin and metronidazole.
Initial plan for staged revascularization procedure is switched to BKA of his left foot by vascular team, tentatively to be scheduled for next week, if patient is more stabilised.
Shock-01/29.
Unclear etiology whether septic versus cardiogenic.
CT PE negative for pulmonary embolism, however there is some evidence for mild to moderate pulmonary edema.
[place] [address] [place] admission, reduced to 6210 on 02/07/24. Elevated lactic acid levels at 5.4 upon admission.
Patient is off of sedatives and pressors - Day 3 today.
Ventilator dependent respiratory failure- extubated on 02/05/24.
Acute on chronic hypoxic respiratory failure.
CT chest evident for pulmonary edema.
Also history of PHTN, untreated, precapillary likely secondary to ERICK.
midflow nasal cannula requirement went up overnight to 10L from 6l.
Repeat ABG within normal limits.
Partial small bowel obstruction versus ileus.
Surgery on board, recommended to continue advancing diet as tolerated and monitor for symptoms.
Patient currently denies having any nausea however did not pass any gas or bowels since 3 PM in the afternoon yesterday.
Appreciate surgery inputs, continue to monitor patient for symptoms.
RAUL on CKD stage 3b
likely secondary to cardiorenal syndrome.
Cr down to 1.5, baseline is at 1.2 . Currently at 1.3
Continue to trends weights, I and O, and
Patient is currently at his dry weight 111kgs.
Avoid nephrotoxic agents. Discontinued bicarbonate yesterday.
Renal on board, appreciate inputs.
Acute on Chronic HFrEF -
Likely secondary to sepsis in the setting of pre-existing CAD and heart failure.
Exacerbated yesterday after initiation of IVF for his hypernatremia.
X ray showed increased pleural effusion and mild interstitial edema.
Gentle diuresis today. Reassess him on day to day basis for diuresis based on his volume status.
Cardiology on board. Appreciate input
Most recent echocardiogram-09/26-EF 30 to 35%.
Continue GDMT as tolerated. Cardiology added metoprolol today.
will reassess tachycardia after taking metoprolol.
Peripheral vascular disease-
No plan for staged revascularization procedure due to clinical instability.
Patient is currently on Eliquis.
Status post left lower extremity arteriogram and stent to SFA, angioplasty to PT per vascular surgery in 09/26.
Permanent A-fib
On metoprolol.
[id number] score-Transitioned back to Eliquis from heparin.
Questionable PVCs on telemetry in the a.m. today. Obtain an EKG.
Hypernatremia -
likely secondary to hemoconcentration from Diuresis.
Speech eval - NPO after intubation yesterday.
Recommended regular diet today.
recommend adequate oral hydratipon.
Discontinue tube feeds.
Reassess for hypernatremia tomorrow.
Leukocytosis-
White blood cell count trending up again.
Suspect secondary to partial small bowel obstruction, not considered as inadequate response to antibiotics.
ID on board, appreciate inputs.
Type 2 diabetes mellitus-
HbA1c at 6.4.
Zfhlcvfkk-Tomngtw-16 units daily. Developed hypoglycemia on Tresiba - 02/07/24, diabetes nurse practitioner consulted for diabetes education and management.
Tube feeds discontinued. Overnight insulin requirement was low.
Continue to monitor glucose with tight glycemic control.
Elevated troponins
Type II demand ischemia
Troponins trended down on 02/02.
Cardiology on board.
Previous history of coronary artery disease.
DVT prophylaxis-on Eliquis
CODE STATUS full code
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
CAD-continue his home meds-aspirin.
Hypertension-continue lisinopril.
Hyperlipidemia-continue Lipitor.
TIA
Asthma
Morbid obesity
Hypoglycemia
Investigations -
Chest X-Ray:
02/07/24 - Slightly increased size of the small right pleural effusion with adjacent atelectasis. There is a likely trace left pleural effusion with adjacent atelectasis, similar to prior.
Mild interstitial edema.
02/05/24 -
As above, flip is not particularly well seen on this projection. Tip of the endotracheal tube likely approximately 1.5 cm above the flip, similar to prior. Enteric catheter and left upper extremity PICC in position.
Low lung volumes. Bilateral small pleural effusions and adjacent atelectasis/consolidation.
01/28/24- No acute cardiopulmonary process.
09/14/23- No active cardiopulmonary disease.
Abdomen X ray -
02/01/24- Nasogastric tube is seen with tip in the distal stomach. Study is otherwise stable.
CTA - 01/30/24 -
Scattered mild to moderate calcified plaque of the common carotid arteries, bilaterally. Bilateral bulb calcified plaque and calcified plaque at the ICA origin and proximal internal carotid arteries.
Distal left common carotid artery estimated luminal diameter reduction of 65%. Proximal left ICA estimated luminal diameter reduction of approximately 60%.
Proximal right ICA estimated luminal diameter reduction of approximately 50%.
Bilateral cavernous ICA calcified plaque with estimated luminal diameter reduction of less than 50%.
Normal variant absent right anterior cerebral artery A1 segment, with the A2 segment supplied by a patent anterior to be encasing artery.
Otherwise, no intracranial cerebral artery plaque, stenosis, occlusion, or aneurysm.
The vertebral arteries are patent. Patent basilar artery.
Moderate right and small left pleural effusion. Pulmonary parenchymal consolidation, right greater than left, atelectasis versus pneumonia. Mild superior mediastinal adenopathy.
CT Scan: CHEST 10/18/22- Stable small perifissural pulmonary nodules along the left major fissure. Stable mild small reticulonodular interstitial opacities in the bilateral upper lobes, right greater than left.
CAP 05/04/22- No acute pathology of the chest, abdomen and pelvis identified. Few left upper and lower lobe pulmonary nodules. Bilateral small renal cysts. Bilateral too small to characterize hypodense renal lesions, likely benign cysts. Moderate
fecal material throughout the colon. Mild diverticulosis.
Echo: 12/12/23- Moderately reduced left ventricular systolic function. Estimated left ventricular ejection fraction is 35-40% . Wall motion analysis is limited due to image quality. Mild mitral regurgitation.
Compared to the previous report 12/12/2023 findings are similar no significant change previously estimated ejection fraction 35%
PFT's: 03/29/23 FEV1 1.91 L 77%, FVC 2.57 L 75%, ratio 74. TLC 3.63 L 59%, DLCO 60%--moderately severe restriction, mild diffusion impairment
Anticipated Discharge: > 48 hours
Subjective/Interval History
-
Date of Service: February 08, 2024
Patient states that his shortness of breath feeling congested in the lungs has improved significantly. Currently he is off of BiPAP and he is getting midflow 10 L.
Objective Data
-
Labs:
Laboratory Results
02/08/24
04:46
WBC 14.7 H
Hgb 9.6 L
Hct 32.0 L
Plt Count 253
Sodium 147 H
Potassium 4.3
Chloride 105
Carbon Dioxide 33 H
BUN 37 H
Creatinine 1.3
Glucose 146 H
Calcium 7.9 L
Vital Signs:
Vital Signs
Temp Pulse Resp BP Pulse Ox
98.4 F 107 35 141/74 94
02/08/24 11:14 02/08/24 10:36 02/08/24 10:17 02/08/24 10:36 02/08/24 11:23
I&O
02/07/24 02/08/24 02/09/24
06:59 06:59 06:59
Intake Total 1675 / 1675 240 / 240
Output Total 475 / 475 550 / 550
Balance 1200 / 1200 -310 / -310
Review of Systems
-
History Source: Patient
Constitutional: Reports Fatigue; Denies Fever, No Appetite, Night Sweats or Chills
EENT: Reports Mouth Pain
Respiratory: Reports No Symptoms
Cardiac: Reports Palpitations
Abdomen/GI: Reports Other (no bowel movements); Denies Abdominal Pain, Nausea, Vomiting or Diarrhea
Breast: Reports No Symptoms
Genitourinary: Reports No Symptoms
Musculoskeletal: Reports No Symptoms
Skin: Reports No Symptoms
Neuro: Reports No Symptoms
Endocrine: Reports No Symptoms
Hematologic / Lymphatic: Reports No Symptoms
Physical Exam
-
General: Respiratory Distress (moderate on 10l mid flow nasal cannula)
HEENT: Moist Mucous Membranes
Respiratory: Wheezes and Crackles; Negative Clear to Auscultation, Rales or Rhonchi
Cardiac: Regular Rhythm and S1/S2; Negative Murmur, Rub or Gallop
GI: Soft, Nontender, Nondistended and Normal Bowel Sounds
Musculoskeletal: No Clubbing, No Cyanosis and No Edema
Skin: Warm
Neuro: AO x 3
Psych: Calm
Data Reviewed
-
Diagnostic Radiology: Image personally visualized and interpreted, Report Reviewed by me and Discussed with Physician
Labs: Labs Reviewed by me and Discussed with Physician
--- NOTE | 2024-02-08 13:07 | PTOTSP ---
ST Follow-Up
Pt currently presents with clinical signs of suspected mild pharyngeal dysphagia. Pt is at an increased risk for aspiration given impulsivity with bolus size as well as symptoms consistent with esophageal dysfunction as well as GI distress (possible
ileus).
Recommendations:
- Continue with thin liquids (while on CLD).
- Aspiration precautions: HOB fully upright for all PO intake and for at least 60 minutes after PO intake; small bites/sips; slow intake rate.
- CHROME TANNER to f/u re: diet tolerance, trial diet upgrades once cleared by surgery, and to complete an instrumental swallow study if deemed necessary.
--- NOTE | 2024-02-08 14:53 | W.PN.GS2 ---
Today's Communication / Plan
-
Stay on clears
Out of bed and ambulate to chair
Assessment / Plan
-
73M with multiple medical comorbidities with abdominal pain, nausea vomiting in the setting of a nonhealing diabetic foot wound, suspect ileus.
Plan:
Continue on clears until more robust bowel function
If he develops n/v would place NGT and make NPO
Per report, last day of tube feeds was on Monday, if no significant return of bowel function over the next few days might need to consider TPN.
Out of bed and ambulate to chair. Okay for chewing gum as this may stimulate return of bowel function.
All other care as per primary team
GS will follow
Time Spent
Total Time Spent with Patient (in minutes): 20
Subjective Data
-
Date of Service: February 08, 2024
Interval Events:
No acute events overnight. Pain Controlled. Denies Nausea/Vomiting, +bowel function. Tolerating diet.
Objective Data
-
Intake and Output
02/07/24 02/08/24 02/09/24
06:59 06:59 06:59
Intake Total 1675 / 1675 240 / 240
Output Total 475 / 475 550 / 550
Balance 1200 / 1200 -310 / -310
Intake:
Oral fluids 1450 / 1450 240 / 240
Tube feeding 100 / 100
Feeding tube flush amount 125 / 125
Output:
Urine, Street 475 / 475 350 / 350
Urine, Voided 200 / 200
Other:
Number of approximated MODERATE 1
amounts of urine
How many times incontinent 1
MODERATE amount urine
How many times incontinent 1 2
SATURATED amount urine
Vital Signs
Temp Pulse Resp BP Pulse Ox
98.4 F 96 24 125/69 92
02/08/24 11:14 02/08/24 12:00 02/08/24 12:00 02/08/24 12:00 02/08/24 12:00
Lab Results
02/08/24 04:46
02/08/24 04:46
Calcium 7.9 mg/dl (8.4-10.2) L 02/08/24 04:46
Phosphorus 3.7 mg/dl (2.5-4.5) 02/07/24 04:41
Magnesium 2.3 mg/dl (1.6-2.3) 02/07/24 04:41
Total Bilirubin 0.5 mg/dl (0.2-1.3) 02/07/24 04:41
Direct Bilirubin 0.7 mg/dl (0.0-0.4) H 01/31/24 04:35
AST 34 U/L (17-59) 02/07/24 04:41
ALT 15 U/L (0-50) 02/07/24 04:41
Alkaline Phosphatase 160 U/L (38-126) H 02/07/24 04:41
Total Protein 6.6 g/dl (6.3-8.2) 02/07/24 04:41
Albumin 2.7 g/dl (3.5-5.0) L 02/07/24 04:41
Physical Exam
-
GENERAL/NEURO: Awake, Alert, no distress
CHEST: Unlabored breathing on nasal cannula
ABDOMEN: Soft, obese, nontender, distended
[2024-02-08 17:21] LABS: Glucose - Point of Care 148 mg/dl (70-99)
[2024-02-08] MEDS: NOVOLOG FLEXPEN-MODERATE RESISTANCE SC (17:56)
[2024-02-08] MEDS: LIPITOR 80 MG PO (17:57)
[2024-02-08 19:25] LABS: Glucose - Point of Care 160 mg/dl (70-99)
--- NOTE | 2024-02-08 19:50 | RR ---
A Rapid Response was called on this patient, please see Rapid Response form.
RR called at change of shift. Pt found minimally responsive with MFNC removed and sat of 50-60%. Pt placed back on MFNC plus NRB and sats increased to 90s. Refer to RR sheet.
--- NOTE | 2024-02-08 20:32 | PTCARENOTE ---
Patient was on 12L midflow for all of shift until shift change when RN saw monitor alarming that his HR dropped from 110's to 50's, and spO2 was 59%. Upon assessment, pt was unresponsive and did not have midflow on. Rapid response was immediately
called. RN placed patient on NRB and in under a minute, pt HR went back to 120 bpm (his normal HR) and spo2 in 90's, he was awake and confused. Providers and RT came to bedside, blood glucose was unremarkable.
[2024-02-08] MEDS: PEPCID 20 MG PO (20:54)
[2024-02-08] MEDS: LANTUS 0.2 UNITS SC (20:55)
[2024-02-08 21:03] LABS: Glucose - Point of Care 148 mg/dl (70-99)
[2024-02-09] VITALS (12 sets, daily range): BP systolic 96–162; BP diastolic 60–88; BMI 37.7
[2024-02-09] MEDS: ANCEF 10 IV ×3 (02:55→17:34)
[2024-02-09 04:16] LABS: Hematocrit 31.7 % (39.0-52.0); Hemoglobin 9.3 g/dL (13.0-18.0); Mean Corp Hgb Conc. 29.3 g/dL (33.0-37.0); Mean Corpuscular Hgb 25.6 pg (27.0-31.0); Mean Corpuscular Volume 87.3 fL (80.0-94.0); Mean Platelet Volume 11.7 fL (7.4-10.4); Platelet Count 279 10^3/uL (130-400); Red Blood Cell Count 3.63 10^6/uL (4.70-6.10); Red Cell Dist. Width 19.9 % (11.5-14.5); White Blood Cell Count 14.4 10^3/uL (4.8-10.8)
[2024-02-09 04:28] LABS: Blood Urea Nitrogen 33 mg/dl (9-20); Calcium 7.9 mg/dl (8.4-10.2); Carbon Dioxide 35 mmol/L (22-30); Chloride 103 mmol/L (98-107); Estimated Creatinine Clearance 67 ml/min; Glucose 114 mg/dl (70-99); Potassium 4.1 mmol/L (3.5-5.1); Sodium 145 mmol/L (135-145); eGFR > 60.00
--- NOTE | 2024-02-09 05:30 | PTCARENOTE ---
RR called at change of shift. Pt found minimally responsive with MFNC removed and sat of 50-60%. Pt placed back on MFNC plus NRB and sats increased to 90s.
Patient placed on bipap HS and he pulled it off around 2230 and sats dropped into 70s. Placed on nonrebreather and 15L MFNC. Notified Kortney, RT. RT requested order for high flow at night as patient is more stable with high flow
Around 0500 pt dropped down to 88% while resting in bed with 15L MFNC on. RT notified and pt placed on 50L 60% highflow
--- NOTE | 2024-02-09 05:40 | W.PN.UPDATE ---
Update Note
Progress Note Update
Rapid Response
RN reported patient HR dropped from 110's to 50's, and spO2 was 59%. Patient was found unresponsive at that time as he had pulled off his oxygen tube. RN placed the midflow right away and his oxygen status improved to 96%, HR 90's BP 130's/80's, BS
160. Patient returned to baseline and stable at present. Advise RN of frequent monitoring.
RT requested order for high flow at night as patient is more stable with high flow. Patient continuously pulling off Bi-pap. o2sat 986%
--- NOTE | 2024-02-09 07:37 | W.PN.HOSP.TC ---
Addendum entered and electronically signed by Conrado Fernández MD 02/09/24 15:28:
Assessment and Plan
Acute on chronic hypoxemic respiratory failure requiring mechanical ventilator
--Now secondary to acute on chronic HFrEF with known EF of 35%, NYHA class III-IV
-successfully extubated
-wean o2 to home as tolerated
-started on ivf for hyperNa, hwoever, o2 requirement went up, though bnp lower then previous still concern for mild hf exacerbation
--therefore, will hold IVF, give additional IV diuretics to further optimize resp status in prep for potential OR with Vascular surgery
---I wonder if he needs RHC to further assess volume status, this we will need to discuss with cards.
-Overnight (02/07-->02/08) noncomplaint with NC, removed fully, desated to the 40's. Started onbipap unable to tolerate now on Hiflow
---Wean highflow as tolerated
---IV lasix should be continue
---Follow renal function, monitor UOP, renal function, Keep K and Mg >4 and 2, daily weight
---Follow Cardiology recs
Severe sepsis
-Left foot plantar ulcer with osteomyelitis
-Family opted for salvage of the extremity to avoid amputation
--Vascular rediscussed, unable to salvage limb will need to go towards amputation, planned for next week once he is optimized from a respiratory standpoint
-Long-term antibiotics for at least 6 weeks, which maybe shorten as source controlled would have been achieved with amputation, id to provide further recs post amputation
-ID following
RAUL on CKD stage IIIb
-Improving
-Follow I's and O's
-Avoid nephrotoxic agents and hypotension
-Monitor urinary output
-Nephrology following
Acute on chronic HFrEF with EF of 30 to 35%, NYHA class IV
-Continue GDMT
-Diurese
-Cardiology following
-Monitor urinary output
-Monitor on telemetry
-Keep K greater than 4
-Keep magnesium greater than 2
Permanent atrial fibrillation
-Continue beta-misha
-Currently on heparin drip plan to transition to Eliquis when able to tolerate p.o.
Type 2 diabetes
-A1c 6.4
-Accu-Cheks
-Sliding scale
-Goal blood glucose 1 40-1 80
-Carb controlled diet/Glucerna will need to tolerate
speech cleared for regular diet
Original Note:
Today's Communication/Plan
-
Continue IV Lasix.
Continue cefazolin and metronidazole
Monitor I's and O's, renal function, sodium and other electrolytes.
Monitor weight.
Assessment / Plan
Assessment / Plan
Assessment -73 Yo M with PMHx significant for peripheral vascular disease, CKD stage IIIb, CAD, permanent A-fib, TIA, hypertension, hyperlipidemia, insulin-dependent type 2 diabetes mellitus, with multiple comorbidities presented to the hospital
with sepsis due to left foot plantar infected diabetic foot ulcer with underlying PAD.
Plan -
Severe sepsis-
Secondary to diabetic left plantar foot ulcer with underlying peripheral vascular disease.
Status post sharp excisional debridement by vascular surgery team on 01/28, lactic acid levels on 01/29 at 5.4.
Left heel bone biopsy growing MSSA, patient was initially started on IV cefepime and vancomycin then transition to meropenem and vancomycin and then to Unasyn.
ID on board, appreciate inputs.
Patient is currently on cefazolin and metronidazole.
Initial plan for staged revascularization procedure is switched to BKA of his left foot by vascular team, tentatively to be scheduled for next week, if patient is more stabilized.
Ventilator dependent respiratory failure- extubated on 02/05/24.
Acute on chronic hypoxic respiratory failure.
Overnight patient's oxygen need escalated from mid flow to high flow at [address] x-ray evident for pulmonary edema. Repeat chest x-ray today.
Also history of PHTN, untreated, precapillary likely secondary to ERICK.
Repeat ABG within normal limits
Shock-01/29.
Unclear etiology whether septic versus cardiogenic.
CT PE negative for pulmonary embolism, however there is some evidence for mild to moderate pulmonary edema.
[place] [address] [place] admission, reduced to 6210 on 02/07/24. Elevated lactic acid levels at 5.4 upon admission.
Patient is off of sedatives and pressors - Day 3 today.
Partial small bowel obstruction versus ileus.
Surgery on board, recommended to continue advancing diet as tolerated and monitor for symptoms.
Patient currently denies having any nausea however did not pass any gas or bowels since 3 PM in the afternoon yesterday.
Appreciate surgery inputs, continue to monitor patient for symptoms.
RAUL on CKD stage 3b
likely secondary to cardiorenal syndrome.
Cr down to 1.5, baseline is at 1.2 . Currently at 1.3
Continue to trends weights, I and O, and
Patient is currently at his dry weight 111kgs.
Avoid nephrotoxic agents. Discontinued bicarbonate yesterday.
Renal on board, appreciate inputs.
Acute on Chronic HFrEF -
Likely secondary to sepsis in the setting of pre-existing CAD and heart failure.
Exacerbated yesterday after initiation of IVF for his hypernatremia.
X ray showed increased pleural effusion and mild interstitial edema.
Gentle diuresis today. Reassess him on day to day basis for diuresis based on his volume status.
Cardiology on board. Appreciate input
Most recent echocardiogram-09/26-EF 30 to 35%.
Continue GDMT as tolerated. Cardiology added metoprolol today.
will reassess tachycardia after taking metoprolol.
Peripheral vascular disease-
No plan for staged revascularization procedure due to clinical instability.
Patient is currently on Eliquis.
Status post left lower extremity arteriogram and stent to SFA, angioplasty to PT per vascular surgery in 09/26.
Permanent A-fib
On metoprolol.
[id number] score-Transitioned back to Eliquis from heparin.
Questionable PVCs on telemetry in the a.m. today. Obtain an EKG.
Hypernatremia -
likely secondary to hemoconcentration from Diuresis.
Speech eval - NPO after intubation yesterday.
Recommended regular diet today.
recommend adequate oral hydratipon.
Discontinue tube feeds.
Reassess for hypernatremia tomorrow.
Leukocytosis-
White blood cell count trending up again.
Suspect secondary to partial small bowel obstruction, not considered as inadequate response to antibiotics.
ID on board, appreciate inputs.
Type 2 diabetes mellitus-
HbA1c at 6.4.
Bxitbdufg-Reuptgv-64 units daily. Developed hypoglycemia on Tresiba - 02/07/24, diabetes nurse practitioner consulted for diabetes education and management.
Tube feeds discontinued. Overnight insulin requirement was low.
Continue to monitor glucose with tight glycemic control.
Elevated troponins
Type II demand ischemia
Troponins trended down on 02/02.
Cardiology on board.
Previous history of coronary artery disease.
DVT prophylaxis-on Eliquis
CODE STATUS full code
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
CAD-continue his home meds-aspirin.
Hypertension-continue lisinopril.
Hyperlipidemia-continue Lipitor.
TIA
Asthma
Morbid obesity
Hypoglycemia
Investigations -
Chest X-Ray:
02/07/24 - Slightly increased size of the small right pleural effusion with adjacent atelectasis. There is a likely trace left pleural effusion with adjacent atelectasis, similar to prior.
Mild interstitial edema.
02/05/24 -
As above, flip is not particularly well seen on this projection. Tip of the endotracheal tube likely approximately 1.5 cm above the flip, similar to prior. Enteric catheter and left upper extremity PICC in position.
Low lung volumes. Bilateral small pleural effusions and adjacent atelectasis/consolidation.
01/28/24- No acute cardiopulmonary process.
09/14/23- No active cardiopulmonary disease.
Abdomen X ray -
02/01/24- Nasogastric tube is seen with tip in the distal stomach. Study is otherwise stable.
CTA - 01/30/24 -
Scattered mild to moderate calcified plaque of the common carotid arteries, bilaterally. Bilateral bulb calcified plaque and calcified plaque at the ICA origin and proximal internal carotid arteries.
Distal left common carotid artery estimated luminal diameter reduction of 65%. Proximal left ICA estimated luminal diameter reduction of approximately 60%.
Proximal right ICA estimated luminal diameter reduction of approximately 50%.
Bilateral cavernous ICA calcified plaque with estimated luminal diameter reduction of less than 50%.
Normal variant absent right anterior cerebral artery A1 segment, with the A2 segment supplied by a patent anterior to be encasing artery.
Otherwise, no intracranial cerebral artery plaque, stenosis, occlusion, or aneurysm.
The vertebral arteries are patent. Patent basilar artery.
Moderate right and small left pleural effusion. Pulmonary parenchymal consolidation, right greater than left, atelectasis versus pneumonia. Mild superior mediastinal adenopathy.
CT Scan: CHEST 10/18/22- Stable small perifissural pulmonary nodules along the left major fissure. Stable mild small reticulonodular interstitial opacities in the bilateral upper lobes, right greater than left.
CAP 05/04/22- No acute pathology of the chest, abdomen and pelvis identified. Few left upper and lower lobe pulmonary nodules. Bilateral small renal cysts. Bilateral too small to characterize hypodense renal lesions, likely benign cysts. Moderate
fecal material throughout the colon. Mild diverticulosis.
Echo: 12/12/23- Moderately reduced left ventricular systolic function. Estimated left ventricular ejection fraction is 35-40% . Wall motion analysis is limited due to image quality. Mild mitral regurgitation.
Compared to the previous report 12/12/2023 findings are similar no significant change previously estimated ejection fraction 35%
PFT's: 03/29/23 FEV1 1.91 L 77%, FVC 2.57 L 75%, ratio 74. TLC 3.63 L 59%, DLCO 60%--moderately severe restriction, mild diffusion impairment
Anticipated Discharge: > 48 hours
Subjective/Interval History
-
Date of Service: February 09, 2024
Overnight patient removed his mid flow nasal cannula which was at 13 L, he desatted and his sats dropped down to less than 60. He required BiPAP which patient adamantly refused and then patient was put back on 15 L nasal cannula flow.
Overnight patient continues to remain hypertensive, tachycardic, tachypneic with his oxygen satting at 92% on 50 L high flow nasal cannula.
Patient denies active symptoms, his last bowel movement was 2 days ago.
Objective Data
-
Labs:
Laboratory Results
02/09/24
03:45
WBC 14.4 H
Hgb 9.3 L
Hct 31.7 L
Plt Count 279
Sodium 145
Potassium 4.1
Chloride 103
Carbon Dioxide 35 H
BUN 33 H
Creatinine 1.1
Glucose 114 H
Calcium 7.9 L
Vital Signs:
Vital Signs
Temp Pulse Resp BP Pulse Ox
97.0 F 100 28 131/75 95
02/09/24 05:39 02/09/24 06:00 02/09/24 06:00 02/09/24 06:00 02/09/24 05:22
I&O
02/08/24 02/09/24 02/10/24
06:59 06:59 06:59
Intake Total 240 / 240 1000 / 1000
Output Total 550 / 550 1500 / 1500
Balance -310 / -310 -500 / -500
Review of Systems
-
History Source: Patient
Constitutional: Reports No Symptoms
Respiratory: Reports No Symptoms
Cardiac: Reports No Symptoms
Abdomen/GI: Reports No Symptoms
Breast: Reports No Symptoms
Genitourinary: Reports No Symptoms
Musculoskeletal: Reports No Symptoms
Skin: Reports No Symptoms
Neuro: Reports No Symptoms
Hematologic / Lymphatic: Reports No Symptoms
Allergy / Immunology: Reports No Symptoms
Physical Exam
-
General: No Apparent Distress and Comfortable
HEENT: Normocephalic, Atraumatic and Moist Mucous Membranes
Respiratory: Clear to Auscultation; Negative Wheezes, Rales, Rhonchi or Crackles
Cardiac: Regular Rhythm and S1/S2; Negative Murmur, Rub or Gallop
GI: Soft, Nontender, Nondistended and Normal Bowel Sounds
Genito-urinary: No Costovertebral Tender
Musculoskeletal: No Clubbing, No Cyanosis and No Edema
Skin: Warm
Neuro: AO x 3 and No Motor Deficits
Psych: Calm
Data Reviewed
-
Diagnostic Radiology: Image personally visualized and interpreted, Report Reviewed by me and Discussed with Physician
Medical Tests (Nuc Med, Echo etc): Image personally visualized and interpreted, Report Reviewed by me and Discussed with Physician
Labs: Labs Reviewed by me and Discussed with Physician
--- NOTE | 2024-02-09 07:45 | PN.DE.MGMTRT ---
Insulin Management
- -
02/09/2024: Diabetes management F/U:
73 years old male with multiple comorbidities admitted to the hospital on 01/27 with sepsis due to left foot plantar infected ulcer 2/2 diabetic foot ulcer and peripheral vascular disease S/P left heal debridement. Diabetes consult requested on 02/04
for Hyperglycemia.
PMH: HTN, HLD, CAD, PVD, CHF, COPD and T2DM. Was taking Jardiance 10mg daily, Tresiba 45 units daily, metformin 1000mg BID and NovoLog 7-20 units AC. A1C 6.4%, Cr 1.5, eGFR 48.25. 01/30 started on tube feeds contributing to Hyperglycemia. 02/01 was
initiate on CC glycemic protocol, developed hypoglycemia on 02/03 while on insulin drip. Was transitioned off on 02/03 to SQ insulin- HS Lantus 5 units and moderate corrective only by Dr. Marcano.
Glucose has remained elevated since transition, 241 to 415, requiring high doses 3-9 units of corrective insulin.
Pt awake, alert, sitting up in bed, offers no complaints. family at bedside, able to participate in discussion about diabetes mgt
Per Vascular surgeon, OR tissue cultures of bone-->Staph aureus (confirming osteomyelitis), tentative OR for amputation of Left foot next week.
02/04 Started on clear liquid diet. 02/05 Started AC NovoLog. Glucose remains stable and in range, premeal 148 to 182, no additional corrective insulin required.
Received Lantus 20 units @ HS, FBG 114(v), 105 POC this AM.
Will make no changes to current regimen: Lantus to 20 units, NovoLog 7 units AC and moderate corrective insulin AC.
States was taking Jardiance at home, doesn't want to take Farxiga, says he had severe SE and was discontinued.
Will cont to follow and adjust insulin if needed.
Diabetes History
- -
Type of Diabetes: 2 requiring insulin
Pre-Admission Diabetes Regimen
02/09/24
03:45
Creatinine 1.1
Lab Results
Hemoglobin A1c 6.4 % (4.0-5.6) H 01/29/24 07:22
Insulin Pump Settings
IP Diabetes Regimen
02/08/24 02/08/24 02/08/24
07:45 11:53 17:10
Glucose
POC Glucose 156 H 182 H 148 H
02/08/24 02/08/24 02/09/24
19:14 20:52 03:45
Glucose 114 H
POC Glucose 160 H 148 H
Patient Education
[2024-02-09] MEDS: NOVOLOG FLEXPEN-MODERATE RESISTANCE SC ×3 (08:11→17:33)
[2024-02-09] MEDS: ELIQUIS 5 MG PO ×2 (08:12→20:14)
[2024-02-09] MEDS: DESENEX/MITRAZOL/ZEASORB 1 APPLIC TOPICAL ×2 (08:12→20:14)
[2024-02-09] MEDS: FLAGYL 500 MG PO ×2 (08:12→20:13)
[2024-02-09] MEDS: TOPROL XL 25 MG PO (08:12)
[2024-02-09] MEDS: LOW STRENGTH ASPIRIN 81 MG TUBE (08:12)
[2024-02-09] MEDS: NOVOLOG FLEXPEN 7 UNITS SC ×3 (08:13→17:34)
[2024-02-09 08:18] LABS: Glucose - Point of Care 105 mg/dl (70-99)
--- NOTE | 2024-02-09 09:59 | W.PN.ID1 ---
Date of Service
Date of Service: February 09, 2024
Today's Communication
Continue cefazolin and metrondiazole.
Assessment / Plan
Osteomyelitis of the L heel
Left heel ulcer with wet gangrene s/p debridement to bone
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
RAUL on CKD
Class II/III obesity
- nausea, diarrhea; distal partial small bowel obstruction and ileus
- take metronidazole with food, BID dosing, currently on clear diet
- C diff and norovirus negative
- 01/28 tissue culture with MSSA, no anaerobic culture done
- c/w cefazolin and metronidazole
- note consideration for amputation when medically stable., will follow clinically; if foot is amputated, then would not require prison antibiotics
Chief Complaint
-: Other (calceneal osteomyelitis, L foot)
Subjective / Review of Systems
Daughter at bedside.
Pt stable. No pain.
Vital Signs / Physical Exam
Vital Signs
Vital Signs
Temp Pulse Resp BP Pulse Ox
97.7 F 107 28 124/86 97
02/09/24 07:06 02/09/24 08:12 02/09/24 06:00 02/09/24 08:12 02/09/24 08:56
Physical Exam
Constitutional: No Acute Distress
Cardiovascular: Regular Rate, S1/S2, Murmur and Rub
Pulmonary: Clear and Symmetric; Negative Wheezes or Rales
Gastrointestinal: Soft, Non Tender and Non Distended
Neurological: AO x 3
Objective Data
Lab Data
Lab Results
02/09/24 03:45
02/09/24 03:45
ESR 95 mm/hour (0-20) H 01/28/24 07:14
PT 27.4 Sec (11.4-14.6) H 01/31/24 08:53
INR 2.50 01/31/24 08:53
APTT Cancelled 02/03/24 10:45
Estimated Creat Clear 67 ml/min 02/09/24 03:45
Lactic Acid 1.1 mmol/L (0.7-2.0) 01/31/24 04:35
Total Bilirubin 0.5 mg/dl (0.2-1.3) 02/07/24 04:41
AST 34 U/L (17-59) 02/07/24 04:41
ALT 15 U/L (0-50) 02/07/24 04:41
Alkaline Phosphatase 160 U/L (38-126) H 02/07/24 04:41
C-Reactive Protein > 270.00 mg/L (0.0-10.00) H 01/28/24 07:41
Most recent labs reviewed.
Micro Results:
02/06/24 10:25 C. difficile GDH Antigen & Toxins - Final
Feces/Stool Negative for toxigenic C.difficile
- Final
Negative for Norovirus GI and GII.
01/31/24 12:12 Blood Culture - Final
Blood/Venous No Growth - Final Report
01/31/24 11:15 Blood Culture - Final
Blood/Venous No Growth - Final Report
01/28/24 12:25 Blood Culture - Final
Blood/Venous No Growth - Final Report
01/29/24 15:30 Tissue Culture - Final
Foot - Left S aureus-Methicillin Sensitive
Gram Stain - Final
01/28/24 14:04 MRSA Screen - Final
Nose No Methicillin Resistant Staphylococcus aureus isolated.
[2024-02-09] MEDS: LASIX 40 MG IV (10:21)
--- NOTE | 2024-02-09 11:38 | W.PN.GS2 ---
Addendum entered and electronically signed by Gilberto Gifford MD 02/09/24 13:02:
I saw and examined the patient.
The Rice Drier's note was reviewed and I agree with the note.
Comment: Passing flatus, destiny cld without issues, denies n/v. Continues with pulm challenges. SECURITIES SUPERVISOR evaluating presently. Would adv to FLD if cleared by SECURITIES SUPERVISOR
Original Note:
Today's Communication / Plan
-
FLD
Assessment / Plan
-
73M with multiple medical comorbidities with abdominal pain, nausea vomiting in the setting of a nonhealing diabetic foot wound, suspect ileus.
Afebrile, mild intermittent tachycardia. BP stable
Currently on HighFlow oxygen, hypoxic events over the last 24h noted
Tolerating clears, but not taking in much
Plan:
Advance to full liquids as tolerated
SECURITIES SUPERVISOR following, when ready for solids will need a pureed diet
If he develops n/v would place NGT and make NPO
All other care as per primary team
Subjective Data
-
Date of Service: February 09, 2024
Patient seen and examined at bedside with Dr. Gifford. Daughter at bedside. Patient denies nausea or vomiting. Daughter notes his last episode of vomiting was 2 days ago. He has been passing flatus, but no BM x2 days. Hypoxia noted over the last 24h
with CREDIT ASSOCIATE called.
Objective Data
-
Intake and Output
02/08/24 02/09/24 02/10/24
06:59 06:59 06:59
Intake Total 240 / 240 1000 / 1000
Output Total 550 / 550 1500 / 1500
Balance -310 / -310 -500 / -500
Intake:
Oral fluids 240 / 240 1000 / 1000
Output:
Urine, Street 350 / 350
Urine, Voided 200 / 200 1500 / 1500
Other:
Number of approximated MODERATE 1
amounts of urine
How many times incontinent 1
MODERATE amount urine
How many times incontinent 2
SATURATED amount urine
Vital Signs
Temp Pulse Resp BP Pulse Ox
97.7 F 89 28 131/80 96
02/09/24 07:06 02/09/24 10:21 02/09/24 06:00 02/09/24 10:21 02/09/24 11:18
Lab Results
02/09/24 03:45
02/09/24 03:45
Calcium 7.9 mg/dl (8.4-10.2) L 02/09/24 03:45
Phosphorus 3.7 mg/dl (2.5-4.5) 02/07/24 04:41
Magnesium 2.3 mg/dl (1.6-2.3) 02/07/24 04:41
Total Bilirubin 0.5 mg/dl (0.2-1.3) 02/07/24 04:41
Direct Bilirubin 0.7 mg/dl (0.0-0.4) H 01/31/24 04:35
AST 34 U/L (17-59) 02/07/24 04:41
ALT 15 U/L (0-50) 02/07/24 04:41
Alkaline Phosphatase 160 U/L (38-126) H 02/07/24 04:41
Total Protein 6.6 g/dl (6.3-8.2) 02/07/24 04:41
Albumin 2.7 g/dl (3.5-5.0) L 02/07/24 04:41
Physical Exam
-
GENERAL/NEURO: Awake, Alert, no distress
CHEST: HiFlo o2 with loose cough, accessory muscle use
ABDOMEN: Soft, obese, nontender, distended
--- NOTE | 2024-02-09 12:02 | W.PN.NEPH.PH ---
Addendum entered and electronically signed by Liya Martin MD 02/09/24 12:12:
check CXR today with increased O2 requirement
Original Note:
Today's Communication / Plan
-
contg lasix
Assessment/Plan
-
Impression:
RAUL
CKD 3b (1.6)
Metabolic acidosis
Left plantar foot ulceration with gangrenous changes s/p debridement
Ischemic cardiomyopathy EF 30%
History of hypertension
History of diabetes
Profound peripheral vascular disease
Diabetes
Plan:
cr now baseline and non oliguric
Hypernatremia stable 145
lasix again, 40 mg IV was provided by primary
BP stable on low dose BB
met alkalosis monitor
Holding Jardiance, metformin, spironolactone and KARL inhibitor at this time
abx per ID
d/w pt
-
-
Date of Service: February 09, 2024
CC / HPI / ROS
-
Chief Complaint:
RAUL with CKD
History of Present Illness:
cr down to 1.1, sodium down 145
non oliguric with off sosa
Hemodynamically sta
bicarb 35
did not tolerate BIPAP, was unresponsive off O2 during night -better with O2
P.o. intake limited
Review of Systems:
extubated 02/04
increasing O2 requirement through night-high flow 50lit
wt down
no cp at rest
Labs
-
Labs:
WBC 14.4 10^3/uL (4.8-10.8) H 02/09/24 03:45
RBC 3.63 10^6/uL (4.70-6.10) L 02/09/24 03:45
Hgb 9.3 g/dL (13.0-18.0) L 02/09/24 03:45
Hct 31.7 % (39.0-52.0) L 02/09/24 03:45
Plt Count 279 10^3/uL (130-400) 02/09/24 03:45
Sodium 145 mmol/L (135-145) 02/09/24 03:45
Potassium 4.1 mmol/L (3.5-5.1) 02/09/24 03:45
Chloride 103 mmol/L (98-107) 02/09/24 03:45
Carbon Dioxide 35 mmol/L (22-30) H 02/09/24 03:45
BUN 33 mg/dl (9-20) H 02/09/24 03:45
Creatinine 1.1 mg/dL (0.7-1.3) 02/09/24 03:45
eGFR > 60.00 02/09/24 03:45
Glucose 114 mg/dl (70-99) H 02/09/24 03:45
Calcium 7.9 mg/dl (8.4-10.2) L 02/09/24 03:45
Phosphorus 3.7 mg/dl (2.5-4.5) 02/07/24 04:41
Qib-A-Sfxwvwkutfy Pept 6410 pg/ml 02/07/24 04:41
Albumin 2.7 g/dl (3.5-5.0) L 02/07/24 04:41
Physical Exam
-
Vital Signs:
Vital Signs
Temp Pulse Resp BP Pulse Ox
97.7 F 89 28 131/80 95
02/09/24 07:06 02/09/24 10:21 02/09/24 06:00 02/09/24 10:21 02/09/24 12:00
Cardiovascular:: Regular rate and rhythm
Respiratory:: Bilateral: Coarse
Lung Excursion:: Abnormal
Abdomen:: Nontender and Soft
Extremity Edema:: None: Bilateral:
Sosa Catheter: No
[2024-02-09 12:32] LABS: Glucose - Point of Care 120 mg/dl (70-99)
--- NOTE | 2024-02-09 14:46 | PTCARENOTE ---
Patient AOx3. Patient forgetful at times. Bed alarm on and audible. Patient tolerating weaning of high flow O2. A fib with PVCs on monitor. Patient advanced to full liquid diet and tolerating well. L foot wound care completed per order. Patients
family at bedside throughout shift. Bed in lowest position, call castellon within reach, and bed wheels locked.
--- NOTE | 2024-02-09 15:40 | W.PN.CD ---
Today's Communication / Plan
-
cont. daily IV lasix
inc. metop if rates remain >100
GDMT hold in setting of recovering shock and pending OR
Impression / Plan
-
Impression/Plan: 73 y/o male (known to Dr. Alvarez, his primary [employer]) with HTN, HLD, IDDM, COPD, permanent atrial fibrillation (on apixaban), CAD with ICMO, PAD with prior FA endovascular intervention, and obesity admitted with
non-healing left foot ulcer/wet gangrene complicated by sepsis now s/p left heal debridement, subsequently complicated by VDRF and hypotension requiring pressor support.
#VDRF/HFrEF (EF 35%)
-Extubated.
-Weight appears close to dry weight.
-CXR 02/09/24 with mild interstitial edema and small effusion; unchanged from 02/06
-additional 40 IV lasix given, goal 1 L negative
-weights down 2 kg
-remains on O2
-daily assessment of diuretic
#Left heal wet gangrene/septic shock/ osteomyelitis
-shock improved
-S/P left heal debridement. Vascular has seen and anticipates amputation
-Continue antibiotics per ID.
-No current plans for further surgical management.
# pre op assessment - Patient will likely require amputation. Increased risk due to history of cardiomyopathy,CAD and afib. Considering the importance of surgery withsepsis and osteo, it is reasonable to proceed with surgery this admission.
would continue to optimize resp status pre operatively.
-will need to hold eliquis 48 hour s pre op.
would continue to optimize resp status
#Ischemic cardiomyopathy
-Chronic.
-LVEF = 35%.
-GDMT as hemodynamics will allow; will hold GDMT perioperative pending vascular surgery and reintroduce post-operatively
-Toprol-XL 25 mg daily; rates getting rast and BP improved; consider uptitration tomorrow
-CXR 02/07/24 and diuretics as above
#Permanent Atrial fibrillation
-AF with RBBB (not new).
-Heart rates 90s-100s
-CHADS2-Vasc = 6 (CHF, HTN, Age x2, DM, vascular disease).
-Continue Eliquis.
#Coronary artery disease
-Chronic, stable.
-Prior history of [place]. Chronically occluded LAD.
-Continue ASA.
#CKD
-stable, RAUL resolved
#Anemia
-Chronic, stable.
Subjective/Interval History:
Patient without compliant. feels breathing mildly improved.
DATA:
Transthoracic Echocardiogram, 02/05/2024:
-Left ventricular ejection fraction is 35%; no significant valvular disease.
Cardiac Catheterization, 09/13/2023:
CONCLUSIONS:
1. Right dominant circulation with a 50% lesion in the distal third of the RPDA, a diffusely diseased, small first obtuse marginal, a 30% lesion in the mid ramus, a 40% lesion in the origin of the first diagonal and a chronic total occlusion of the
mid LAD (known since cardiac catheterization in 1999).
2. Normal filling pressures (LVEDP = 10 mmHg, PCWP = 13 mmHg at 105.7 kg).
3. Severely impaired cardiac function (cardiac index = 1.36 L/min/m�, a VO2 difference 8.63 volume percent).
4. Mild precapillary pulmonary hypertension (mean PA pressure = 23 mmHg, PVR = 3.44 Moesr units).
5. Significantly elevated peripheral vascular resistance (1787 dynes*seconds*cm^5).
Physical Exam
Vital Signs/Labs
Vital Signs
Temp Pulse Resp BP Pulse Ox
36.7 C 97 33 147/87 94
02/09/24 11:35 02/09/24 14:00 02/09/24 14:00 02/09/24 14:00 02/09/24 15:25
02/08/24 02/09/24 02/10/24
06:59 06:59 06:59
Actual Weight 107.5 kg 105.8 kg
02/09/24 03:45
02/09/24 03:45
PT 27.4 Sec (11.4-14.6) H 01/31/24 08:53
INR 2.50 01/31/24 08:53
APTT Cancelled 02/03/24 10:45
Magnesium 2.3 mg/dl (1.6-2.3) 02/07/24 04:41
Triglycerides 150 mg/dl (10-149) H 02/05/24 03:31
01/31/24 02/07/24
09:09 04:41
Uye-G-Zwbjokpjwhz Pept [id number]
Physical Exam
Constitutional: No acute distress
Cardiovascular: Rhythm/rate is irregular
Respiratory: Respiratory effort normal
Neuro/Psych: AO x 3
Data Reviewed
-
Date of Service: February 09, 2024
Medical Decision Making: Reviewed Test Results
X-Ray/CT/US/MRI/NUC/PET: Image Personally Visualized and interpreted and Report Reviewed by me
Labs: Labs Reviewed by me
--- NOTE | 2024-02-09 17:24 | CM ---
atient who was extubated 02/04, S/P left heel debridement. Hi flow O2. Receiving IV Abx. PT/OT 02/07 recommend skilled rehab.
Per Vascular surgery notes today: likely need for amputation due to extensive left heel gangrene and osteomyelitis, potentially next week.
Per ID notes 02/06: will require a 6 week course of IV cefazolin and oral metronidazole (through 03/09/24). Script for OPAT placed on paper chart.
CM continuing to follow for d/c needs.
Plan follow patient's O2, BiPAP, mobility and IV Abx needs for d/c.
Plan [facility] when medically ready.
[2024-02-09] MEDS: LIPITOR 80 MG PO (17:34)
[2024-02-09 17:41] LABS: Glucose - Point of Care 138 mg/dl (70-99)
[2024-02-09 22:23] LABS: Glucose - Point of Care 323 mg/dl (70-99)
[2024-02-09] MEDS: LANTUS 0.2 UNITS SC (23:22)
[2024-02-09] MEDS: PEPCID 20 MG PO (23:22)
[2024-02-10] VITALS (14 sets, daily range): BP systolic 85–156; BP diastolic 58–106; BMI 38.1
[2024-02-10] MEDS: ANCEF 10 IV ×3 (01:58→18:09)
--- NOTE | 2024-02-10 02:56 | PTCARENOTE ---
AAOx3, forgetful at times. High flow O2 50L 60%. O2 sat 98%. RR 27 with increase WOB noted. A-fib with PVC's on tele. L heel would care completed per order. Pt denies any pain at this time. CHG bath and oral care done. Pt rings appropriately, call
castellon within reach.
[2024-02-10] MEDS: TYLENOL 650 MG PO (03:44)
[2024-02-10 08:02] LABS: Glucose - Point of Care 130 mg/dl (70-99)
[2024-02-10] MEDS: NOVOLOG FLEXPEN 7 UNITS SC ×3 (08:11→18:08)
[2024-02-10] MEDS: NOVOLOG FLEXPEN-MODERATE RESISTANCE SC (08:11)
[2024-02-10] MEDS: TOPROL XL 25 MG PO (08:12)
[2024-02-10] MEDS: ELIQUIS 5 MG PO ×2 (08:12→19:34)
[2024-02-10] MEDS: FLAGYL 500 MG PO ×2 (08:12→19:34)
[2024-02-10] MEDS: DESENEX/MITRAZOL/ZEASORB 1 APPLIC TOPICAL ×2 (08:12→19:34)
[2024-02-10] MEDS: LOW STRENGTH ASPIRIN 81 MG TUBE (08:12)
--- NOTE | 2024-02-10 08:16 | W.PN.ID1 ---
Date of Service
Date of Service: February 10, 2024
Today's Communication
Continue antibiotics.
Assessment / Plan
Osteomyelitis of the L heel
Left heel ulcer with wet gangrene s/p debridement to bone
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
RAUL on CKD
Class II/III obesity
- nausea, diarrhea; distal partial small bowel obstruction and ileus
- take metronidazole with food, BID dosing, currently on clear diet
- C diff and norovirus negative
- 01/28 tissue culture with MSSA, no anaerobic culture done
- c/w cefazolin and metronidazole
����������������������������������������������������������
Chief Complaint
-: Other (calceneal osteomyelitis, L foot)
Subjective / Review of Systems
Review of Systems: No Fever and No Chills
Vital Signs / Physical Exam
Vital Signs
Vital Signs
Temp Pulse Resp BP Pulse Ox
98.3 F 101 27 129/66 95
02/10/24 07:00 02/10/24 06:00 02/10/24 06:00 02/10/24 06:00 02/10/24 08:09
Physical Exam
Constitutional: No Acute Distress, Comfortable and Non-toxic
Eyes: Sclera Anicteric
Cardiovascular: Regular Rate, S1/S2 and Rub
Pulmonary: Clear and Symmetric; Negative Wheezes or Rales
Gastrointestinal: Soft, Non Tender and Non Distended
Extremities: Edema (2+ left lower extremity)
Wound: Other (Left heel dressed. No strikethrough.)
Neurological: AO x 3
Objective Data
Lab Data
Lab Results
02/09/24 03:45
ESR 95 mm/hour (0-20) H 01/28/24 07:14
PT 27.4 Sec (11.4-14.6) H 01/31/24 08:53
INR 2.50 01/31/24 08:53
APTT Cancelled 02/03/24 10:45
Estimated Creat Clear 67 ml/min 02/09/24 03:45
Lactic Acid 1.1 mmol/L (0.7-2.0) 01/31/24 04:35
Total Bilirubin 0.5 mg/dl (0.2-1.3) 02/07/24 04:41
AST 34 U/L (17-59) 02/07/24 04:41
ALT 15 U/L (0-50) 02/07/24 04:41
Alkaline Phosphatase 160 U/L (38-126) H 02/07/24 04:41
C-Reactive Protein > 270.00 mg/L (0.0-10.00) H 01/28/24 07:41
Most recent labs reviewed.
Micro Results:
02/06/24 10:25 C. difficile GDH Antigen & Toxins - Final
Feces/Stool Negative for toxigenic C.difficile
- Final
Negative for Norovirus GI and GII.
01/31/24 12:12 Blood Culture - Final
Blood/Venous No Growth - Final Report
01/31/24 11:15 Blood Culture - Final
Blood/Venous No Growth - Final Report
01/28/24 12:25 Blood Culture - Final
Blood/Venous No Growth - Final Report
01/29/24 15:30 Tissue Culture - Final
Foot - Left S aureus-Methicillin Sensitive
Gram Stain - Final
01/28/24 14:04 MRSA Screen - Final
Nose No Methicillin Resistant Staphylococcus aureus isolated.
[2024-02-10 08:53] LABS: Blood Urea Nitrogen 31 mg/dl (9-20); Calcium 7.8 mg/dl (8.4-10.2); Carbon Dioxide 36 mmol/L (22-30); Chloride 101 mmol/L (98-107); Estimated Creatinine Clearance 67 ml/min; Glucose 144 mg/dl (70-99); Potassium 3.9 mmol/L (3.5-5.1); Sodium 145 mmol/L (135-145); eGFR > 60.00
--- NOTE | 2024-02-10 12:06 | W.PN.NEPH.PH ---
Today's Communication / Plan
-
lasix
Assessment/Plan
-
Impression:
RAUL
CKD 3b (1.6)
Metabolic acidosis
Left plantar foot ulceration with gangrenous changes s/p debridement
Ischemic cardiomyopathy EF 30%
History of hypertension
History of diabetes
Profound peripheral vascular disease
Diabetes
Plan:
cr now better than baseline 1.1 and non oliguric
Hypernatremia stable 145
lasix again, 40 mg IV , remains on high flow O2
CXR noted pleural effusion and atelectasis, edeme?
BP stable on low dose BB
met alkalosis monitor
Holding Jardiance, metformin, spironolactone and KARL inhibitor at this time
abx per ID
d/w nursing
-
-
Date of Service: February 10, 2024
CC / HPI / ROS
-
Chief Complaint:
RAUL with CKD
History of Present Illness:
cr down to 1.1, sodium no [id number]
UOP not measured accurately off sosa
Hemodynamically stable
bicarb 36
P.o. intake limited
Review of Systems:
extubated 02/04
still on high flow 55lit
wt is up not sure if accurate on bedscale
no cp at rest
Labs
-
Labs:
WBC 14.4 10^3/uL (4.8-10.8) H 02/09/24 03:45
RBC 3.63 10^6/uL (4.70-6.10) L 02/09/24 03:45
Hgb 9.3 g/dL (13.0-18.0) L 02/09/24 03:45
Hct 31.7 % (39.0-52.0) L 02/09/24 03:45
Plt Count 279 10^3/uL (130-400) 02/09/24 03:45
Sodium 145 mmol/L (135-145) 02/10/24 08:21
Potassium 3.9 mmol/L (3.5-5.1) 02/10/24 08:21
Chloride 101 mmol/L (98-107) 02/10/24 08:21
Carbon Dioxide 36 mmol/L (22-30) H 02/10/24 08:21
BUN 31 mg/dl (9-20) H 02/10/24 08:21
Creatinine 1.1 mg/dL (0.7-1.3) 02/10/24 08:21
eGFR > 60.00 02/10/24 08:21
Glucose 144 mg/dl (70-99) H 02/10/24 08:21
Calcium 7.8 mg/dl (8.4-10.2) L 02/10/24 08:21
Phosphorus 3.7 mg/dl (2.5-4.5) 02/07/24 04:41
Ste-X-Jydxorwibbd Pept 6410 pg/ml 02/07/24 04:41
Albumin 2.7 g/dl (3.5-5.0) L 02/07/24 04:41
Physical Exam
-
Vital Signs:
Vital Signs
Temp Pulse Resp BP Pulse Ox
98.3 F 101 27 129/66 95
02/10/24 07:00 02/10/24 06:00 02/10/24 06:00 02/10/24 06:00 02/10/24 11:31
Cardiovascular:: Irregular rate and rhythm
Respiratory:: Bilateral: Coarse
Lung Excursion:: Abnormal
Abdomen:: Nontender and Soft
Extremity Edema:: None: Bilateral:
Sosa Catheter: No
--- NOTE | 2024-02-10 12:13 | W.PN.CD ---
Today's Communication / Plan
-
-Continue diuresis -Lasix 40 mg IV x 1 now
-Continue aspirin and Eliquis
-Plan for amputation next week
Impression / Plan
-
Impression/Plan: 73 y/o male (known to Dr. Alvraez, his primary Director Government) with HTN, HLD, IDDM, COPD, permanent atrial fibrillation (on apixaban), CAD with ICMO, PAD with prior LSFA endovascular intervention, and obesity admitted with
non-healing left foot ulcer/wet gangrene complicated by sepsis now s/p left heal debridement, subsequently complicated by VDRF and hypotension requiring pressor support.
#VDRF/HFrEF (EF 35%)
-Weight appears close to dry weight.
-CXR 02/09/24 with mild interstitial edema and small effusion; unchanged from 02/06
-additional 40 IV lasix QD for now, goal 1 L negative
-weights down 2 kg
-remains on O2
-daily assessment of diuretic
#Left heal wet gangrene/septic shock/ osteomyelitis
-shock improved
-S/P left heal debridement. Vascular has seen and anticipates amputation
-Continue antibiotics per ID.
-No current plans for further surgical management.
# pre op assessment - Patient will likely require amputation. Increased risk due to history of cardiomyopathy,CAD and afib. Considering the importance of surgery with sepsis and osteo, it is reasonable to proceed with surgery this admission.
would continue to optimize resp status pre operatively.
-will need to hold eliquis 48 hours pre op.
would continue to optimize resp status
#Ischemic cardiomyopathy
-Chronic.
-LVEF = 35%.
-GDMT as hemodynamics will allow; will hold GDMT perioperative pending vascular surgery and reintroduce post-operatively
-Toprol-XL 25 mg daily; rates getting rast and BP improved; consider uptitration tomorrow
-CXR 02/07/24 and diuretics as above
#Permanent Atrial fibrillation
-AF with RBBB (not new).
-Heart rates 90s-100s
-CHADS2-Vasc = 6 (CHF, HTN, Age x2, DM, vascular disease).
-Continue Eliquis.
#Coronary artery disease
-Chronic, stable.
-Prior history of [place]. Chronically occluded LAD.
-Continue ASA.
#CKD
-stable, RAUL resolved
#Anemia
-Chronic, stable.
Subjective/Interval History:
Patient without compliant. feels breathing mildly improved.
DATA:
Transthoracic Echocardiogram, 02/05/2024:
-Left ventricular ejection fraction is 35%; no significant valvular disease.
Cardiac Catheterization, 09/13/2023:
CONCLUSIONS:
1. Right dominant circulation with a 50% lesion in the distal third of the RPDA, a diffusely diseased, small first obtuse marginal, a 30% lesion in the mid ramus, a 40% lesion in the origin of the first diagonal and a chronic total occlusion of the
mid LAD (known since cardiac catheterization in 1999).
2. Normal filling pressures (LVEDP = 10 mmHg, PCWP = 13 mmHg at 105.7 kg).
3. Severely impaired cardiac function (cardiac index = 1.36 L/min/m�, a VO2 difference 8.63 volume percent).
4. Mild precapillary pulmonary hypertension (mean PA pressure = 23 mmHg, PVR = 3.44 Moser units).
5. Significantly elevated peripheral vascular resistance (1787 dynes*seconds*cm^5).
Physical Exam
Vital Signs/Labs
Vital Signs
Temp Pulse Resp BP Pulse Ox
98.3 F 101 27 129/66 95
02/10/24 07:00 02/10/24 06:00 02/10/24 06:00 02/10/24 06:00 02/10/24 11:31
02/09/24 02/10/24 02/11/24
06:59 06:59 06:59
Actual Weight 105.8 kg 107 kg
02/09/24 03:45
02/10/24 08:21
PT 27.4 Sec (11.4-14.6) H 01/31/24 08:53
INR 2.50 01/31/24 08:53
APTT Cancelled 02/03/24 10:45
Magnesium 2.3 mg/dl (1.6-2.3) 02/07/24 04:41
Triglycerides 150 mg/dl (10-149) H 02/05/24 03:31
01/31/24 02/07/24
09:09 04:41
Gdg-C-Vvbhizdfmfd Pept [id number] 6410
Physical Exam
Constitutional: No acute distress and Comfortable
EENT: Anicteric and Moist mucous membranes
Cardiovascular: Rhythm/rate is irregular, Pedal edema present, JVD present and Systolic murmur present
Respiratory: Rhonchi Present and Other (On oxygen with bilateral rhonchi and moderate respiratory distress)
GI: Soft and Normal bowel sounds
Neuro/Psych: Alert, Oriented and AO x 3
Data Reviewed
-
Date of Service: February 10, 2024
Medical Decision Making: Reviewed Test Results
EKG: Tracing Personally Visualized and interpreted
Echo: Report Reviewed by me
X-Ray/CT/US/MRI/NUC/PET: Image Personally Visualized and interpreted
Labs: Labs Reviewed by me
Old Records: Reviewed
Critical Care Time (in minutes): 35
[2024-02-10] MEDS: NOVOLOG FLEXPEN-MODERATE RESISTANCE 1 UNITS SC ×2 (12:39→18:09)
[2024-02-10 12:47] LABS: Glucose - Point of Care 195 mg/dl (70-99)
--- NOTE | 2024-02-10 13:03 | W.PN.GS2 ---
Addendum entered and electronically signed by Gilberto Gifford MD 02/10/24 13:40:
I saw and examined the patient.
The Continuous Improvement Director's note was reviewed and I agree with the note.
Comment: Improved. Onel fulls with no issue. Denies nausea. BM+. Belly soft, nt. OK to ADAT per HANDKERCHIEF FOLDER parameters. GS will s/o pls call with ?s
Original Note:
Today's Communication / Plan
-
Advance diet
Assessment / Plan
-
73M with multiple medical comorbidities with abdominal pain, nausea vomiting in the setting of a nonhealing diabetic foot wound, suspect ileus.
Afebrile, mild intermittent tachycardia. BP stable
Tolerating liquids
Plan:
Advance pureed low residue diabetic diet
HANDK[employer]IE[employer] following for dysphagia
All other care as per primary team
Subjective Data
-
Date of Service: February 10, 2024
Patient seen and examined at bedside with Dr. Gifford. Reports he is passing flatus and had a BM this morning. Denies abdominal pain, nausea or vomiting.
Objective Data
-
Intake and Output
02/09/24 02/10/24 02/11/24
06:59 06:59 06:59
Intake Total 1000 / 1000 240 / 240
Output Total 1500 / 1500 200 / 200 350 / 350
Balance -500 / -500 -200 / -200 -110 / -110
Intake:
Oral fluids 1000 / 1000 240 / 240
Output:
Urine, Voided 1500 / 1500 200 / 200 350 / 350
Other:
Number of approximated LARGE 1
amounts of urine
How many times incontinent 1
SATURATED amount urine
Vital Signs
Temp Pulse Resp BP Pulse Ox
98.3 F 101 27 129/66 95
02/10/24 07:00 02/10/24 06:00 02/10/24 06:00 02/10/24 06:00 02/10/24 11:31
Lab Results
02/09/24 03:45
02/10/24 08:21
Calcium 7.8 mg/dl (8.4-10.2) L 02/10/24 08:21
Phosphorus 3.7 mg/dl (2.5-4.5) 02/07/24 04:41
Magnesium 2.3 mg/dl (1.6-2.3) 02/07/24 04:41
Total Bilirubin 0.5 mg/dl (0.2-1.3) 02/07/24 04:41
Direct Bilirubin 0.7 mg/dl (0.0-0.4) H 01/31/24 04:35
AST 34 U/L (17-59) 02/07/24 04:41
ALT 15 U/L (0-50) 02/07/24 04:41
Alkaline Phosphatase 160 U/L (38-126) H 02/07/24 04:41
Total Protein 6.6 g/dl (6.3-8.2) 02/07/24 04:41
Albumin 2.7 g/dl (3.5-5.0) L 02/07/24 04:41
Physical Exam
-
GENERAL/NEURO: Awake, Alert, no distress
CHEST: HiFlo o2, non-labored breathing with loose cough
ABDOMEN: Soft, obese, nontender, nondistended
--- NOTE | 2024-02-10 14:13 | W.PN.HOSP.TC ---
Today's Communication/Plan
-
Assessment / Plan
Assessment / Plan
Physical Exam
NAD, resting comfortably in bed
Scleral anicteric
Moist mucous membranes, HFNC
JVD +
Crackles
Normal S1-S2 NANO iRRR
Morbidly obese Soft nontender nondistended bowel sounds active
1+ pitting edema
Moves extremities spontaneously
AAOx3
Assessment and Plan
Acute on chronic hypoxemic respiratory failure requiring mechanical ventilator
--Now secondary to acute on chronic HFrEF with known EF of 35%, NYHA class III-IV
-successfully extubated
-wean o2 to home as tolerated
-started on ivf for hyperNa, hwoever, o2 requirement went up, though bnp lower then previous still concern for mild hf exacerbation
--therefore, will hold IVF, give additional IV diuretics to further optimize resp status in prep for potential OR with Vascular surgery
---I wonder if he needs RHC to further assess volume status, this we will need to discuss with cards.
-Overnight (02/07-->02/08) noncomplaint with NC, removed fully, desated to the 40's. Started onbipap unable to tolerate now on Hiflow
---Wean highflow as tolerated
---IV lasix should be continue
---Follow renal function, monitor UOP, renal function, Keep K and Mg >4 and 2, daily weight
---Follow Cardiology recs
Severe sepsis
-Left foot plantar ulcer with osteomyelitis
-Family opted for salvage of the extremity to avoid amputation
--Vascular rediscussed, unable to salvage limb will need to go towards amputation, planned for next week once he is optimized from a respiratory standpoint
-Long-term antibiotics for at least 6 weeks, which maybe shorten as source controlled would have been achieved with amputation, id to provide further recs post amputation
-ID following
RAUL on CKD stage IIIb
-Improving
-Follow I's and O's
-Avoid nephrotoxic agents and hypotension
-Monitor urinary output
-Nephrology following
Acute on chronic HFrEF with EF of 30 to 35%, NYHA class IV
-Continue GDMT
-Diurese
-Cardiology following
-Monitor urinary output
-Monitor on telemetry
-Keep K greater than 4
-Keep magnesium greater than 2
Permanent atrial fibrillation
-Continue beta-misha
-Currently on heparin drip plan to transition to Eliquis when able to tolerate p.o.
Type 2 diabetes
-A1c 6.4
-Accu-Cheks
-Sliding scale
-Goal blood glucose 1 40-1 80
-Carb controlled diet/Glucerna will need to tolerate
speech cleared for regular diet
Anticipated Discharge: > 48 hours
Subjective/Interval History
-
Date of Service: February 10, 2024
seen and examiend
no new comapitns.
no acute overnight events
Objective Data
-
Labs:
Laboratory Results
02/10/24
08:21
Sodium 145
Potassium 3.9
Chloride 101
Carbon Dioxide 36 H
BUN 31 H
Creatinine 1.1
Glucose 144 H
Calcium 7.8 L
Vital Signs:
Vital Signs
Temp Pulse Resp BP Pulse Ox
98.5 F 101 27 129/66 95
02/10/24 12:40 02/10/24 06:00 02/10/24 06:00 02/10/24 06:00 02/10/24 11:31
I&O
02/09/24 02/10/24 02/11/24
06:59 06:59 06:59
Intake Total 1000 / 1000 720 / 720
Output Total 1500 / 1500 200 / 200 350 / 350
Balance -500 / -500 -200 / -200 370 / 370
[2024-02-10] MEDS: LASIX 40 MG IV (14:19)
[2024-02-10 17:43] LABS: Glucose - Point of Care 198 mg/dl (70-99)
[2024-02-10] MEDS: LIPITOR 80 MG PO (18:09)
[2024-02-10] MEDS: PEPCID 20 MG PO (19:34)
[2024-02-10] MEDS: LANTUS 0.2 UNITS SC (19:35)
[2024-02-10 19:50] LABS: Glucose - Point of Care 213 mg/dl (70-99)
[2024-02-10 22:27] LABS: Blood Urea Nitrogen 32 mg/dl (9-20); Calcium 7.7 mg/dl (8.4-10.2); Carbon Dioxide 39 mmol/L (22-30); Chloride 97 mmol/L (98-107); Estimated Creatinine Clearance 81 ml/min; Glucose 233 mg/dl (70-99); Magnesium 1.8 mg/dl (1.6-2.3); Sodium 139 mmol/L (135-145); eGFR > 60.00
[2024-02-10] MEDS: MAGNESIUM OXIDE 500 MG PO (22:43)
--- NOTE | 2024-02-10 23:09 | PTCARENOTE ---
Patient with 51 beats of vtach. Asymptomatic. VSS. order caller provider made aware and ordered labs. Mag oxide ordered and administered.
[2024-02-11] VITALS (14 sets, daily range): BP systolic 86–138; BP diastolic 57–87; PULSE 3–94
[2024-02-11] MEDS: ANCEF 10 IV ×3 (01:35→17:04)
--- NOTE | 2024-02-11 02:44 | PTCARENOTE ---
Patient ripped off HFNC and desatted to the 60s. Patient originally fought against attempts to put the HFNC back on. When patient sats recovered he stated that he is 'done and wants to .' Emotional support provided. Code status discussed with
patient and he stated that he does not want anything done if need be. Patient encouraged to speak to his family about decision and MD. mail caller provider made aware and to pass on to attending.
[2024-02-11 04:33] LABS: Blood Urea Nitrogen 29 mg/dl (9-20); Calcium 7.7 mg/dl (8.4-10.2); Carbon Dioxide 38 mmol/L (22-30); Chloride 98 mmol/L (98-107); Estimated Creatinine Clearance 67 ml/min; Glucose 159 mg/dl (70-99); Magnesium 1.9 mg/dl (1.6-2.3); Potassium 3.9 mmol/L (3.5-5.1); Sodium 141 mmol/L (135-145); eGFR > 60.00
[2024-02-11 06:12] LABS: B.E. 9.8 mmol/L; HCO3 36.7 mmol/L (21-28); O2 Saturation % 95.7 % (94-98); PCO2 62 mmHg (35-48); PO2 79 mmHg (83-108); pH 7.38 (7.35-7.45)
--- NOTE | 2024-02-11 06:15 | PTCARENOTE ---
Patient agitated with care and confused overnight. Patient continuously stating that he is 'tired and doesnt want to do this anymore.' Patients HFNC turned up to 50 liters 70 % with NRB. calliope player provider made aware and ordered stat ABG. Call placed
to family by BENDING SHED WORKER for goals of care discussion.
--- NOTE | 2024-02-11 06:36 | W.PN.UPDATE ---
Addendum entered and electronically signed by JESSICA Price 02/11/24 06:51:
for me pt aaox2 (disoriented to time/date). Could tell me where he was and knew what was going on
Original Note:
Update Note
Progress Note Update
0000 Pt expressing to RN the desire to stop everything and wanting to . Explained that he needs to have this conversation with his family. Continue current treatment until then. Pt has been forgetful about time thinking its daytime not nighttime.
Poss hospital delirium.
0200 pt took off oxygen and desat to 60%. Once HFNC replaced pt oxygen level did recover
0600 pt again stating he 'doesnt want anymore of this' and wants to .' ABG done as pt has been getting more confused. CO2 62. Pt non complaint with bipap-- known ERICK. Currently pt with high o2 requirement and likely wouldnt even wear it. Phone
call placed to Lalitha- left message to call back. Daughter Jelly returned call- Discussed dad's desire to 'stop everything' and that i feel that they need to come in [place] and decide plan of care going forward. Explained dad becoming more
confused (lack of sleep, co2 retention, hospital delirium) and that he keeps taking off oxygen and desatting to dangerous levels. I don't want to give him anything to calm him as that might cloud his judgement more. She agrees for now. They will
come in [place].
For now will make him 1:1 for wishing to and also taking off oxygen. Will update attending
[2024-02-11 08:50] LABS: Glucose - Point of Care 195 mg/dl (70-99)
[2024-02-11] MEDS: LOW STRENGTH ASPIRIN 81 MG TUBE (09:01)
[2024-02-11] MEDS: TOPROL XL 25 MG PO (09:02)
[2024-02-11] MEDS: ELIQUIS 5 MG PO ×2 (09:04→20:10)
[2024-02-11] MEDS: NOVOLOG FLEXPEN-MODERATE RESISTANCE 1 UNITS SC ×3 (09:04→16:54)
[2024-02-11] MEDS: FLAGYL 500 MG PO ×2 (09:04→20:10)
[2024-02-11] MEDS: NOVOLOG FLEXPEN 7 UNITS SC ×3 (09:04→16:55)
[2024-02-11] MEDS: DESENEX/MITRAZOL/ZEASORB 1 APPLIC TOPICAL ×2 (09:04→20:30)
--- NOTE | 2024-02-11 09:37 | W.PN.ID1 ---
Date of Service
Date of Service: February 11, 2024
Today's Communication
Continue antibiotics.
Assessment / Plan
Osteomyelitis of the L heel
Left heel ulcer with wet gangrene s/p debridement to bone
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
RAUL on CKD
Class II/III obesity
- nausea, diarrhea; distal partial small bowel obstruction and ileus
- take metronidazole with food, BID dosing, currently on clear diet
- C diff and norovirus negative
- 01/28 tissue culture with MSSA, no anaerobic culture done
- c/w cefazolin and metronidazole
����������������������������������������������������������
Chief Complaint
-: Other (calceneal osteomyelitis, L foot)
Subjective / Review of Systems
Patient seen and examined. Reports no issues with antibiotics. Breathing comfortable.
Review of Systems: No Fever and No Chills
Vital Signs / Physical Exam
Vital Signs
Vital Signs
Temp Pulse Resp BP Pulse Ox
98.3 F 95 24 137/70 92
02/11/24 07:55 02/11/24 09:02 02/11/24 06:00 02/11/24 09:02 02/11/24 06:00
Physical Exam
Constitutional: No Acute Distress, Comfortable, Chronically Ill and Non-toxic
Eyes: Sclera Anicteric
Cardiovascular: Regular Rate and S1/S2
Pulmonary: Clear
Gastrointestinal: Soft, Non Tender and Non Distended
Extremities: Edema (2+ left lower extremity)
Wound: Other (Left heel dressed. No strikethrough. Feet in offloading boots)
Neurological: Awake, Alert and AO x 3
Objective Data
Lab Data
Lab Results
02/09/24 03:45
02/11/24 03:56
ESR 95 mm/hour (0-20) H 01/28/24 07:14
PT 27.4 Sec (11.4-14.6) H 01/31/24 08:53
INR 2.50 01/31/24 08:53
APTT Cancelled 02/03/24 10:45
Estimated Creat Clear 67 ml/min 02/11/24 03:56
Lactic Acid 1.1 mmol/L (0.7-2.0) 01/31/24 04:35
Total Bilirubin 0.5 mg/dl (0.2-1.3) 02/07/24 04:41
AST 34 U/L (17-59) 02/07/24 04:41
ALT 15 U/L (0-50) 02/07/24 04:41
Alkaline Phosphatase 160 U/L (38-126) H 02/07/24 04:41
C-Reactive Protein > 270.00 mg/L (0.0-10.00) H 01/28/24 07:41
Most recent labs reviewed.
Micro Results:
02/06/24 10:25 C. difficile GDH Antigen & Toxins - Final
Feces/Stool Negative for toxigenic C.difficile
- Final
Negative for Norovirus GI and GII.
01/31/24 12:12 Blood Culture - Final
Blood/Venous No Growth - Final Report
01/31/24 11:15 Blood Culture - Final
Blood/Venous No Growth - Final Report
01/28/24 12:25 Blood Culture - Final
Blood/Venous No Growth - Final Report
01/29/24 15:30 Tissue Culture - Final
Foot - Left S aureus-Methicillin Sensitive
Gram Stain - Final
01/28/24 14:04 MRSA Screen - Final
Nose No Methicillin Resistant Staphylococcus aureus isolated.
--- NOTE | 2024-02-11 11:03 | W.PN.UPDATE ---
Update Note
Progress Note Update
Discussed with patient just now and his at bedside plan for left below the knee amputation once more medically/pulmonary stable or improved. I noted in reviewing chart patient's expressing to stop all interventions and his feelings that were
documented overnight. However he did not express any of that to me this morning. He wishes to pursue BKA and wants to have it done as soon as possible. However I discussed with the patient and his waiting for medical optimization. Discussed
risks with anesthesia in the setting of compromised pulmonary status. I did discuss with both of them left below the knee amputation (discussed alternative of [id number] amputation and pros and cons of both strategies). Discussed risks
including but not limited to bleeding, infections, nonwound healing requiring revision to above the knee. They understand all wish to proceed once medically stable.
[2024-02-11 12:47] LABS: Glucose - Point of Care 197 mg/dl (70-99)
--- NOTE | 2024-02-11 12:59 | W.PN.NEPH.PH ---
Today's Communication / Plan
-
check BNP, cautious use of lasix with met alkalosis and hypercarbia
Assessment/Plan
-
Impression:
RAUL
CKD 3b (1.6)
Metabolic acidosis
Left plantar foot ulceration with gangrenous changes s/p debridement
Ischemic cardiomyopathy EF 30%
History of hypertension
History of diabetes
Profound peripheral vascular disease
Diabetes
Plan:
cr now better than baseline 1.1 and non oliguric
sig met alkalosis and hypercarbia noted on ABG
cautious us of lasix with met alkalosis, check BNP
remains on high flow O2, may benefit RHC
though I think this is not all from hypervolemia
wts have fluctuated, not accurate
BP stable on low dose BB
met alkalosis monitor
Holding Jardiance, metformin, spironolactone and KARL inhibitor at this time
abx per ID
d/w pt
d/w primary
-
-
Date of Service: February 11, 2024
CC / HPI / ROS
-
Chief Complaint:
RAUL with CKD
History of Present Illness:
cr down to 1.1, sodium better 141
non oliguric 1.7lit
Hemodynamically stable
bicarb 38, Ph 7.38, Pco2 62
P.o. intake limited
took off O2, hypoxic and cont to state did not want to live last night but fine this am
Review of Systems:
extubated 02/04
still on high flow O2
wt is not done today, not sure if accurate on bedscale before
no cp at rest
Labs
-
Labs:
WBC 14.4 10^3/uL (4.8-10.8) H 02/09/24 03:45
RBC 3.63 10^6/uL (4.70-6.10) L 02/09/24 03:45
Hgb 9.3 g/dL (13.0-18.0) L 02/09/24 03:45
Hct 31.7 % (39.0-52.0) L 02/09/24 03:45
Plt Count 279 10^3/uL (130-400) 02/09/24 03:45
Sodium 141 mmol/L (135-145) 02/11/24 03:56
Potassium 3.9 mmol/L (3.5-5.1) 02/11/24 03:56
Chloride 98 mmol/L (98-107) 02/11/24 03:56
Carbon Dioxide 38 mmol/L (22-30) H 02/11/24 03:56
BUN 29 mg/dl (9-20) H 02/11/24 03:56
Creatinine 1.1 mg/dL (0.7-1.3) 02/11/24 03:56
eGFR > 60.00 02/11/24 03:56
Glucose 159 mg/dl (70-99) H 02/11/24 03:56
Calcium 7.7 mg/dl (8.4-10.2) L 02/11/24 03:56
Phosphorus 3.7 mg/dl (2.5-4.5) 02/07/24 04:41
Cde-F-Eideuhmtrzs Pept 6410 pg/ml 02/07/24 04:41
Albumin 2.7 g/dl (3.5-5.0) L 02/07/24 04:41
Physical Exam
-
Vital Signs:
Vital Signs
Temp Pulse Resp BP Pulse Ox
98.3 F 95 24 137/70 94
02/11/24 07:55 02/11/24 09:02 02/11/24 06:00 02/11/24 09:02 02/11/24 11:10
Cardiovascular:: Regular rate and rhythm
Respiratory:: Bilateral: Coarse
Lung Excursion:: Abnormal
Abdomen:: Nontender and Soft
Extremity Edema:: None: Bilateral:
Street Catheter: No
--- NOTE | 2024-02-11 14:00 | W.PN.CD ---
Today's Communication / Plan
-
-Continue aspirin and Eliquis
-Plan for amputation next week
Impression / Plan
-
Impression/Plan: 73 y/o male (known to Dr. Alvarez, his primary [employer]) with HTN, HLD, IDDM, COPD, permanent atrial fibrillation (on apixaban), CAD with ICMO, PAD with prior LSFA endovascular intervention, and obesity admitted with
non-healing left foot ulcer/wet gangrene complicated by sepsis now s/p left heal debridement, subsequently complicated by VDRF and hypotension requiring pressor support.
#VDRF/HFrEF (EF 35%)
-Weight appears close to dry weight.
-CXR 02/09/24 with mild interstitial edema and small effusion; unchanged from 02/06
-Euvolemic - can resume lasix 40 mg PO QD
-weights down 2 kg
-remains on O2
-daily assessment of diuretic
#Left heal wet gangrene/septic shock/ osteomyelitis
-shock improved
-S/P left heal debridement. Vascular has seen and anticipates amputation
-Continue antibiotics per ID.
-No current plans for further surgical management.
# pre op assessment - Patient will likely require amputation. Increased risk due to history of cardiomyopathy,CAD and afib. Considering the importance of surgery with sepsis and osteo, it is reasonable to proceed with surgery this admission.
would continue to optimize resp status pre operatively.
-will need to hold eliquis 48 hours pre op.
would continue to optimize resp status
#Ischemic cardiomyopathy
-Chronic.
-LVEF = 35%.
-GDMT as hemodynamics will allow; will hold GDMT perioperative pending vascular surgery and reintroduce post-operatively
-Toprol-XL 25 mg daily; rates getting rast and BP improved; consider uptitration tomorrow
-CXR 02/07/24 and diuretics as above
#Permanent Atrial fibrillation
-AF with RBBB (not new).
-Heart rates 90s-100s
-CHADS2-Vasc = 6 (CHF, HTN, Age x2, DM, vascular disease).
-Continue Eliquis.
#Coronary artery disease
-Chronic, stable.
-Prior history of TX. Chronically occluded LAD.
-Continue ASA.
#CKD
-stable, RAUL resolved
#Anemia
-Chronic, stable.
Subjective/Interval History:
Patient without compliant. feels breathing mildly improved.
DATA:
Transthoracic Echocardiogram, 02/05/2024:
-Left ventricular ejection fraction is 35%; no significant valvular disease.
Cardiac Catheterization, 09/13/2023:
CONCLUSIONS:
1. Right dominant circulation with a 50% lesion in the distal third of the RPDA, a diffusely diseased, small first obtuse marginal, a 30% lesion in the mid ramus, a 40% lesion in the origin of the first diagonal and a chronic total occlusion of the
mid LAD (known since cardiac catheterization in 1999).
2. Normal filling pressures (LVEDP = 10 mmHg, PCWP = 13 mmHg at 105.7 kg).
3. Severely impaired cardiac function (cardiac index = 1.36 L/min/m�, a VO2 difference 8.63 volume percent).
4. Mild precapillary pulmonary hypertension (mean PA pressure = 23 mmHg, PVR = 3.44 Moser units).
5. Significantly elevated peripheral vascular resistance (1787 dynes*seconds*cm^5).
Physical Exam
Vital Signs/Labs
Vital Signs
Temp Pulse Resp BP Pulse Ox
98.3 F 95 24 137/70 94
02/11/24 07:55 02/11/24 09:02 02/11/24 06:00 02/11/24 09:02 02/11/24 11:10
02/10/24 02/11/24 02/12/24
06:59 06:59 06:59
Actual Weight 107 kg
02/09/24 03:45
02/11/24 03:56
PT 27.4 Sec (11.4-14.6) H 01/31/24 08:53
INR 2.50 01/31/24 08:53
APTT Cancelled 02/03/24 10:45
Magnesium 1.9 mg/dl (1.6-2.3) 02/11/24 03:56
Triglycerides 150 mg/dl (10-149) H 02/05/24 03:31
01/31/24 02/07/24
09:09 04:41
Vkp-T-Lkmixuzghyp Pept 18834 6410
Physical Exam
Constitutional: No acute distress and Comfortable
EENT: Anicteric and Moist mucous membranes
Cardiovascular: Rhythm/rate is irregular and Pedal edema present
Respiratory: Respiratory effort normal, Crackles Absent and Rhonchi Absent
GI: Soft and Normal bowel sounds
Neuro/Psych: Alert and Oriented
Data Reviewed
-
Date of Service: February 11, 2024
Medical Decision Making: Reviewed Test Results, Test Interpretation and Review of Case with other Provider
EKG: Tracing Personally Visualized and interpreted
Echo: Report Reviewed by me
Labs: Labs Reviewed by me
Old Records: Reviewed
[2024-02-11 14:27] LABS: NT-proBNP 7400 pg/ml
--- NOTE | 2024-02-11 14:35 | W.PN.HOSP.TC ---
Today's Communication/Plan
-
Assessment / Plan
Assessment / Plan
Physical Exam
NAD, resting comfortably in bed
Scleral anicteric
Moist mucous membranes, HFNC
JVD +
Crackles
Normal S1-S2 NANO iRRR
Morbidly obese Soft nontender nondistended bowel sounds active
1+ pitting edema
Moves extremities spontaneously
AAOx3
Assessment and Plan
Acute on chronic hypoxemic respiratory failure requiring mechanical ventilator
--Now secondary to acute on chronic HFrEF with known EF of 35%, NYHA class III-IV
-successfully extubated
-wean o2 to home as tolerated
-started on ivf for hyperNa, hwoever, o2 requirement went up, though bnp lower then previous still concern for mild hf exacerbation
--therefore, will hold IVF, give additional IV diuretics to further optimize resp status in prep for potential OR with Vascular surgery
---I wonder if he needs RHC to further assess volume status, this we will need to discuss with cards.
-Overnight (02/07-->/) noncomplaint with NC, removed fully, desated to the 40's. Started on bipap unable to tolerate now on Hiflow
---Wean highflow as tolerated
---IV lasix should be continue
---Follow renal function, monitor UOP, renal function, Keep K and Mg >4 and 2, daily weight
---Follow Cardiology recs
Primary respiratory acidosis with secondary metabolic alkalosis
-Needs to wear bipap instead of refusing
-I would keep giving lasix for now until hco3 in the low 40's at which time could hold diureitcs and give diamox depending on the pH.
-Nephrology dc'ed lasix
Severe sepsis
-Left foot plantar ulcer with osteomyelitis
-Family opted for salvage of the extremity to avoid amputation
--Vascular rediscussed, unable to salvage limb will need to go towards amputation, planned for this up coming week once he is optimized from a respiratory standpoint
-Long-term antibiotics for at least 6 weeks, which maybe shorten as source controlled would have been achieved with amputation, id to provide further recs post amputation
-ID following
RAUL on CKD stage IIIb
-Improving
-Follow I's and O's
-Avoid nephrotoxic agents and hypotension
-Monitor urinary output
-Nephrology following
Acute on chronic HFrEF with EF of 30 to 35%, NYHA class IV
-Continue GDMT
-Diurese
-Cardiology following
-Monitor urinary output
-Monitor on telemetry
-Keep K greater than 4
-Keep magnesium greater than 2
Permanent atrial fibrillation
-Continue beta-misha
-Currently on heparin drip plan to transition to Eliquis when able to tolerate p.o.
Type 2 diabetes
-A1c 6.4
-Accu-Cheks
-Sliding scale
-Goal blood glucose 1 40-1 80
-Carb controlled diet/Glucerna will need to tolerate
Chunky/Hospital acquired delirium
-Delrium precautions
-Reorientation
-DUe to resp status would avoid melatonin and other sedative
speech cleared for regular diet
Anticipated Discharge: > 48 hours
Subjective/Interval History
-
Date of Service: February 11, 2024
seen and examined. no new complaints.
refusing bipap
keep taking off highflow nc
becomes acutely confused which could be sundowing or hypoxia
this am aao3, family at bedside, states he will wear bipap tonight
Objective Data
-
Labs:
Laboratory Results
02/11/24 02/11/24
03:56 06:04
HCO3 36.7 H
Sodium 141
Potassium 3.9
Chloride 98
Carbon Dioxide 38 H
BUN 29 H
Creatinine 1.1
Glucose 159 H
Calcium 7.7 L
Vital Signs:
Vital Signs
Temp Pulse Resp BP Pulse Ox
98.3 F 95 24 137/70 95
02/11/24 07:55 02/11/24 09:02 02/11/24 06:00 02/11/24 09:02 02/11/24 14:20
I&O
02/10/24 02/11/24 02/12/24
06:59 06:59 06:59
Intake Total 720 / 720
Output Total 200 / 200 2125 / 2125
Balance -200 / -200 -1405 / -1405
--- NOTE | 2024-02-11 15:50 | W.PN.PUL3 ---
Today's Communication / Plan
-
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
Diet as per CERTIFIED OPHTHALMIC SURGICAL ASSISTANT
Antibiotics as per ID
Diuresis as per nephrology
Goal BG 140�180
Remains full code
Pulmonary service will continue to briefly follow along
Assessment
-
Patient is a 73-year-old male with previous history of hypertension, hyperlipidemia, CHF admitted to on 01/28/2024 for nonhealing left heel wound. He notes that he had a blister that was broken up and on his left heel and was prescribed a
topical antibiotic which did not improve his symptoms. Vascular was consulted and due to progressive lethargy, there is concern for ongoing sepsis. Underwent urgent debridement of heel on 01/29/2024 and transferred postoperatively to ICU.
Impression:
Unresponsiveness, acute hypoxic respiratory failure status post intubation 01/30/24 --> extubated 02/05/2024 --> now awake but confused at times
Acute on chronic congestive heart failure exacerbation with reduced ejection fraction --> improved and close to dry weight
Wet gangrene of the left heel s/p excisional debridement through bone with lavage and irrigation 01/29/2024 - wound Cx grew MSSA
Nonhealing left heel wound
Nausea/vomiting and diarrhea with flat plate concerning for ileus vs early SBO (likely the former)
Leukocytosis
RAUL, creatinine 1.9 (Cr baseline: approx. 1.2-1.3) - RAUL improved
Hypernatremia (mild) - resolved
DM type II c/b hyperglycemia (HbA1C: 6.4 on 01/29/2024)
Chronic hypercapnic respiratory failure with metabolic alkalosis
Conditions present prior to admission
History of heart failure, ICM worsened LVEF at 30-35% - TTE 09/11/23
Hypertension
Hyperlipidemia
Morbid obesity, BMI 40.4
Left anterior fascicular block, chronic
History of persistent atrial fibrillation on Eliquis
Coronary disease with history of KS 20+ years ago
History of TIA
Severe sleep apnea, HST AHI 61/78%, failed CPAP 2021
Diabetes
Chronic DJD, back pain
[id number], quit
Chronic cough, COPD/RLD on PFTs, follows at [facility]-Dr Montiel/Chanelle
PAD
Plan
- Given patient's chronic hypercapnia likely due to obesity hypoventilation syndrome, he was recommended to continue with BiPAP with sleep
- ABG from this morning (02/10) shows adequate ventilation with pH 7.38 and pCO2 62; serum bicarbonate from blood work is 38
- No current indication for Diamox given that his pH is <7.45
- Continue to trend blood gas and serum HCO3 levels
- Of note, he carries a history of severe obstructive sleep apnea intolerant to CPAP in the past
- Recommend outpatient evaluation for sleep disordered breathing given morbid obesity with thick neck
- Keep SpO2 >90-94%
CT head and neck obtained on 01/30/2024 --> bilateral carotid disease noted
Nephrology recs appreciated
- trend sCr, I/O and UOP
Troponin peaked at 0.110 on 01/31/2024� cardiology consulted and recommendations appreciated; no need to continue trending troponin
Cardiac history as noted above
Transthoracic echo from 12/12/2023 shows LVEF 35-40% --> echo repeated on 02/04 showed LVEF 35% with severe hypokinesis of the mid�distal anterior, anteroseptal and apical dahl consistent with a mid LAD infarct; severe LAE
[facility]
He underwent LHC and RHC on 09/13/2023 showed reduced CI at 1.36 and low PCWP at 13 with slightly elevated PADP at 17mmhg with mild pHTN (mPAP: 23mmHg)
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
Rate control with goal HR<110bpm
Replete K>4, Mg>2
Unresponsiveness status post intubation 01/29 --> he was extubated on 02/04
CTA chest from 01/30/2024 shows large bilateral pleural effusions with bilateral mosaic attenuation likely due to interstitial edema, without acute PE
CXR on 02/09/2024 still shows evidence of pleural effusions with subsegmental atelectasis
Diet as per CERTIFIED OPHTHALMIC SURGICAL ASSISTANT; continue with aspiration precautions
GI ppx: N/A (continue pepcid as this is a home med)
Aspiration precautions
Non healing would of LLE, on abx for coverage, concern for sepsis --> currently on Ancef + flagyl since 02/03 s/p Unasyn and meropenem
s/p debridement 01/29/24, tissue culture grew MSSA; wound vac
Blood culture negative
Vasc surgery saw pt on 02/01 --> patient is at high risk for limb loss due to extent of heel wound + bone exposure; no acute need for surgical intervention at this point
Given his nausea/vomiting and diarrhea starting on evening of 02/04, ID ordered C-diff (negative) and norovirus stool studies (also negative)
Flat plate done on 02/05 showed concern for ileus versus early SBO (suspect the former) - General Surgery consulted and recommended clear liquid diet; hold off on NGT for now and continue to monitor; repeat flatplate and if shows continued findings
of dilated bowel then would consider CT abdomen/pelvis with oral contrast
Monitor function/IOs
Nephrology consulted and recommendations appreciated
Renally dose all meds/Abx; avoid nephrotoxic agents
Diuresis with lasix 40mg daily
CBC stable
Transfuse if needed to keep Hb >7, platelets >20k
DVT ppx: Eliquis
PT/OT when able
Goal BG 140-180
Diabetic BAG FILLER consulted
Continue basal-bolus SQ insulin for now
Patient has a follow-up with our pulmonary office on 03/26/[address] Candelaria - I advised him to keep this appointment.
Pulmonary service will continue to briefly follow along
Diagnostic Data
CXR 02/05/2024:
1. Nasrin is not particularly well seen on this projection. Tip of the endotracheal tube likely approximately 1.5 cm above the nasrin, similar to prior. Enteric catheter and left upper extremity PICC in position.
2. Low lung volumes. Bilateral small pleural effusions and adjacent atelectasis/consolidation.
Chest X-Ray: 01/28/24- No acute cardiopulmonary process.
09/14/23- No active cardiopulmonary disease.
Flat Plate 02/06/2024: Increased mild distention of small bowel, ileus versus at least partial distal small bowel obstruction.
CTA Chest 01/30/2024:
Markedly limited study, as detailed above, with no findings to suggest bilateral CENTRAL pulmonary embolism.
Large right lower lobe consolidation and moderate right pleural effusion.
Left lower lobe subsegmental atelectasis and small left pleural effusion.
Groundglass opacity and mild septal thickening suggesting mild to moderate pulmonary edema.
Endotracheal tube with tip in trachea above the nasrin. No pneumothorax.
CT Scan: CHEST 10/18/22- Stable small perifissural pulmonary nodules along the left major fissure. Stable mild small reticulonodular interstitial opacities in the bilateral upper lobes, right greater than left.
CAP 05/04/22- No acute pathology of the chest, abdomen and pelvis identified. Few left upper and lower lobe pulmonary nodules. Bilateral small renal cysts. Bilateral too small to characterize hypodense renal lesions, likely benign cysts. Moderate
fecal material throughout the colon. Mild diverticulosis.
Echo: 12/12/23- Moderately reduced left ventricular systolic function. Estimated left ventricular ejection fraction is 35-40% . Wall motion analysis is limited due to image quality. Mild mitral regurgitation.
Compared to the previous report 12/12/2023 findings are similar no significant change previously estimated ejection fraction 35%
PFT's: 03/29/23 FEV1 1.91 L 77%, FVC 2.57 L 75%, ratio 74. TLC 3.63 L 59%, DLCO 60%--moderately severe restriction, mild diffusion impairment
Reports and relevant images were personally reviewed.
-----
Total time spent today was 37 minutes for this encounter. Time includes reviewing laboratory test/imaging results, reviewing pertinent medical records, obtaining and reviewing medical history, performing an appropriate exam, ordering medications,
tests and procedures. Time also includes documentation of this encounter, coordinating patient care and communicating with other healthcare professionals. Total time does not include separately billed tests performed on this date of service.
Subjective Data
-
Date of Service:
Date of Service: February 11, 2024
Chief Complaint: Pulmonary Follow Up
Subjective:
Pulmonary service asked to see the patient again today. When I saw him, he was resting in bed in no acute distress. Refused BiPAP last night but is amenable to use again tonight. Heart rate 106, saturating 93% and BP 140/122. He denies chest
pain, GARCIA, fevers or chills.
Review of Systems
General: Other (Negative unless mentioned above)
Objective Data
Data Reviewed
Vital Signs / I&O / Oxygen:
Vital Signs
Temp Pulse Resp BP Pulse Ox
98.1 F 90 21 128/83 99
02/11/24 19:00 02/11/24 20:00 02/11/24 20:00 02/11/24 20:00 02/11/24 20:00
Intake and Output
02/10/24 02/11/24 02/12/24
06:59 06:59 06:59
Intake Total 720 / 720 540 / 540
Output Total 200 / 200 2125 / 2125 1600 / 1600
Balance -200 / -200 -1405 / -1405 -1060 / -1060
SaO2 [CPAP/PSV] 98
SaO2 [A/C] 100
SaO2 99
Nasal Cannula flow liters per 45
minute
Physical Exam
General: Respiratory Distress (negative), Chills (negative) and Sweats (negative)
HEENT: Normocephalic and Anicteric
Cardiovascular: S1-S2, Rub (negative) and Peripheral Edema (+1 lower extremity pitting edema bilaterally)
Respiratory: Wheeze (negative), Crackles (Bilateral), Rhonchi (negative) and Non-Labored Respirations
GI: Soft, Distended (Abdominal obesity), Non Tender and Normal Bowel Sounds
Neurology: Awake, Alert and Tremors (negative)
Skin: Warm, Dry and Cyanosis (negative)
Labs/Micro/Reports
Lab Data
02/09/24 03:45
02/11/24 03:56
Laboratory Results
02/11/24
06:04
pH 7.38
pCO2 62 H
pO2 79 L
HCO3 36.7 H
O2 Delivery Level
[2024-02-11 16:24] LABS: Glucose - Point of Care 170 mg/dl (70-99)
--- NOTE | 2024-02-11 16:46 | PTCARENOTE ---
0730 Family at bedside. Pt is more oriented, forgetful of events overnight. States he wants the surgery and to continue w/ his plan of care. Family spoke w/ Dr Castillo and Dr Fernández throughout the morning. Family at bedside, pt remained cooperative and
alert throughout the day. Pt stating he is agreeable to wear BiPAP tonight. Pt able to be weaned off High Flow, currently on 15L Midflow at this time.
[2024-02-11] MEDS: LIPITOR 80 MG PO (16:55)
[2024-02-11] MEDS: LASIX 40 MG IV (18:01)
--- NOTE | 2024-02-11 21:00 | PTCARENOTE ---
Pt received from previous RN. Pt answers all orientation questions accurately, does express feelings of frustration with being sick. Pt provided with reassurance. Pt eager to wear bipap tonight. Pt received on 15 midflow. sats 95%. pt afib on
monitor. Voiding with urinal. Hs hygiene provided. Assessment as documented. Call light in reach, bed alarm on due to forgetfulness, safe environment maintained.
[2024-02-11 21:41] LABS: Glucose - Point of Care 143 mg/dl (70-99)
[2024-02-11] MEDS: LANTUS 0.2 UNITS SC (23:21)
[2024-02-11] MEDS: PEPCID 20 MG PO (23:21)
[2024-02-11 23:32] LABS: Glucose - Point of Care 143 mg/dl (70-99)
[2024-02-12] VITALS (15 sets, daily range): BP systolic 80–145; BP diastolic 60–98; PULSE 3–90; BMI 37.8
[2024-02-12] MEDS: ANCEF 10 IV ×3 (03:05→17:40)
--- NOTE | 2024-02-12 04:00 | PTCARENOTE ---
Pt wore bipap overnight until 340, pt ripped bipap off multiple times overnight up until this last time to which he had dropped to 70% and the bipap was too tangled to quickly be replaced back on. Pt was placed on midflow 15L to recovered, he
recovered u to 94% quickly. RT made aware of pt removing bipap.
[2024-02-12 04:32] LABS: Venous Blood Gas B.E. 13.4 mmol/L (-4 to +4); Venous Blood Gas O2 Sat % 90.8 %; Venous Blood Gas pH 7.37 (7.32-7.43); Venous Blood Gas pO2 63 mmHg (30-50)
[2024-02-12 04:44] LABS: Venous Blood Gas O2 Therapy hiflow or bipap 40%
[2024-02-12 04:45] LABS: Venous Blood Gas pCO2 71 mmHg (35-48)
[2024-02-12 05:14] LABS: Blood Urea Nitrogen 29 mg/dl (9-20); Calcium 7.7 mg/dl (8.4-10.2); Chloride 97 mmol/L (98-107); Estimated Creatinine Clearance 67 ml/min; Glucose 102 mg/dl (70-99); Magnesium 1.9 mg/dl (1.6-2.3); Potassium 3.8 mmol/L (3.5-5.1); Sodium 141 mmol/L (135-145); eGFR > 60.00
[2024-02-12 05:25] LABS: Carbon Dioxide 35 mmol/L (22-30)
[2024-02-12] MEDS: TYLENOL 650 MG PO (06:30)
[2024-02-12 07:55] LABS: Glucose - Point of Care 102 mg/dl (70-99)
--- NOTE | 2024-02-12 08:07 | PN.DE.MGMTRT ---
Insulin Management
- -
02/12/2024: Diabetes management F/U:
73 years old male with multiple comorbidities admitted to the hospital on 01/27 with sepsis due to left foot plantar infected ulcer 2/2 diabetic foot ulcer and peripheral vascular disease S/P left heal debridement. Diabetes consult requested on 02/04
for Hyperglycemia.
PMH: HTN, HLD, CAD, PVD, CHF, COPD and T2DM. Was taking Jardiance 10mg daily, Tresiba 45 units daily, metformin 1000mg BID and NovoLog 7-20 units AC. A1C 6.4%, Cr 1.5, eGFR 48.25. 01/30 started on tube feeds contributing to Hyperglycemia. 02/01 was
initiate on CC glycemic protocol, developed hypoglycemia on 02/03 while on insulin drip. Was transitioned off on 02/03 to SQ insulin- HS Lantus 5 units and moderate corrective only by Dr. Marcano.
Glucose has remained elevated since transition, 241 to 415, requiring high doses 3-9 units of corrective insulin.
Pt awake, alert, resting in bed, offers no complaints. family at bedside, able to participate in discussion about diabetes mgt
Per Vascular surgeon, OR tissue cultures of bone-->Staph aureus (confirming osteomyelitis)
Tentative plans for amputation of Left foot this week.
02/04 Started on clear liquid diet. 02/05 Started AC NovoLog. Glucose remains stable and in range, premeal 170 to 195.
Received Lantus 20 units @ HS, FBG 102(v), 102 POC this AM.
Will make no changes to current regimen: Lantus to 20 units, NovoLog 7 units AC and moderate corrective insulin AC.
States was taking Jardiance at home, doesn't want to take Farxiga, says he had severe SE and was discontinued.
Will cont to follow and adjust insulin if needed. Will resume Jardiance at discharge
Diabetes History
- -
Type of Diabetes: 2 requiring insulin
Pre-Admission Diabetes Regimen
02/12/24
04:23
Creatinine 1.1
Lab Results
Hemoglobin A1c 6.4 % (4.0-5.6) H 01/29/24 07:22
Insulin Pump Settings
IP Diabetes Regimen
02/11/24 02/11/24 02/11/24
08:38 12:36 16:13
Glucose
POC Glucose 195 H 197 H 170 H
02/11/24 02/11/24 02/12/24
21:28 23:21 04:23
Glucose 102 H
POC Glucose 143 H 143 H
02/12/24
07:43
Glucose
POC Glucose 102 H
Meal type: Breakfast
Amount consumed: 50%
Patient Education
[2024-02-12] MEDS: NOVOLOG FLEXPEN-MODERATE RESISTANCE SC ×3 (08:09→17:37)
[2024-02-12] MEDS: TOPROL XL 25 MG PO (08:12)
[2024-02-12] MEDS: DESENEX/MITRAZOL/ZEASORB 1 APPLIC TOPICAL ×2 (08:15→21:06)
[2024-02-12] MEDS: ELIQUIS 5 MG PO (08:15)
[2024-02-12] MEDS: FLAGYL 500 MG PO ×2 (08:15→21:06)
[2024-02-12] MEDS: LOW STRENGTH ASPIRIN 81 MG TUBE (08:15)
--- NOTE | 2024-02-12 08:49 | W.PN.UPDATE ---
Update Note
Progress Note Update
I saw and evaluated the patient. I reviewed the resident�s note and agree with findings and plan as documented in the resident�s note.
Denies CP/SOB/abd pain.
Gen: NAD, Awake and alert
Eyes: EOMI, PERRLA, no scleral icterus.
Neck: supple.
CV: irreg/irreg, +S1/S2, no m/r/g.
Resp: CTAB anteriorly, no rales, wheezes, or rhonchi.
Abd: +BS, soft, NT, ND
Skin: No rashes.
Neuro: CN 2-12 intact, non-focal.
Psych: Normal mood and affect.
Acute on chronic hypoxemic respiratory failure requiring intubation/mechanical ventilator:
-due to acute on chronic HFrEF with known EF of 35%, NYHA class III-IV
-now extubated
-note, was on IVFs for hypernatremia. Then pt was diuresed with IV Lasix. As per cardiology pt now euvolemic. Agree with 40mg IV lasix by nephrology today.
-overnight 02/07-02/08 patient was noncompliant with NC O2 (removed NC O2) and desaturated to the 40s. He was placed on BiPAP but was unable to tolerate. Currently weaned to 15L midflow
Severe sepsis:
-due to L foot plantar ulcer with osteomyelitis
-Family initially opted for salvage of the extremity to avoid amputation, now plans for amputation this week
-cont Ancef/Flagyl as per ID
-currently on Eliquis. Will transition to heparin gtt preop.
Other problems:
Primary respiratory acidosis with secondary metabolic alkalosis
Permanent atrial fibrillation: cont BB/Eliquis
RAUL on CKD3b, resolved
DM2: a1c 6.4%, SSI/accuchecks
Hospital acquired delirium, supportive care
Obesity due to excess calories
FULL/Eliquis
Total time spent on today's encounter was 50 minutes which included time spent in counseling the patient/family regarding diagnosis and treatment plan as listed above, goals of care, and symptom management. Case was discussed with nursing staff,
specialists, and care coordinators/case management. All labs and imaging personally reviewed by me. Remainder the time spent in detailed review of previous records, lab data, imaging, and other medical provider documentation.
[2024-02-12] MEDS: NOVOLOG FLEXPEN 7 UNITS SC ×2 (09:05→17:39)
--- NOTE | 2024-02-12 09:08 | W.PN.NEPH.PH ---
Today's Communication / Plan
-
Lasix 40 mg IV today
Chest x-ray reviewed bilateral lower lung haziness possibly consistent with interstitial
Follow BMP
Kidney function at baseline
Assessment/Plan
-
Impression:
RAUL
CKD 3b (1.6)
Metabolic acidosis
Left plantar foot ulceration with gangrenous changes s/p debridement
Ischemic cardiomyopathy EF 30%
History of hypertension
History of diabetes
Profound peripheral vascular disease
Diabetes
Plan:
cr now better than baseline 1.1 and non oliguric
Significant met alkalosis and hypercarbia noted on ABG
cautious us of lasix with met alkalosis, check BNP ,weight well below admission weight
40 mg IV Lasix given again today given review of chest x-ray
RHC would be helpful
remains on high flow O2, may benefit RHC
though I think this is not all from hypervolemia
wts have fluctuated, not accurate
BP stable on low dose BB
met alkalosis monitor
Holding Jardiance, metformin, spironolactone and KARL inhibitor at this time
abx per ID
d/w pt
d/w primary
-
-
Date of Service: February 12, 2024
CC / HPI / ROS
-
Chief Complaint:
RAUL with CKD
History of Present Illness:
cr down to 1.1, sodium better 141
non oliguric 1.7lit
Hemodynamically stable
bicarb 38, Ph 7.38, Pco2 62
P.o. intake limited
took off O2, hypoxic and cont to state did not want to live last night but fine this am
Review of Systems:
extubated /
still on high flow O2
wt down
no cp at rest
Nonoliguric 2200 cc
Labs
-
Labs:
WBC 14.4 10^3/uL (4.8-10.8) H 02/09/24 03:45
RBC 3.63 10^6/uL (4.70-6.10) L 02/09/24 03:45
Hgb 9.3 g/dL (13.0-18.0) L 02/09/24 03:45
Hct 31.7 % (39.0-52.0) L 02/09/24 03:45
Plt Count 279 10^3/uL (130-400) 02/09/24 03:45
Sodium 141 mmol/L (135-145) 02/12/24 04:23
Potassium 3.8 mmol/L (3.5-5.1) 02/12/24 04:23
Chloride 97 mmol/L (98-107) L 02/12/24 04:23
Carbon Dioxide 35 mmol/L (22-30) H 02/12/24 04:23
BUN 29 mg/dl (9-20) H 02/12/24 04:23
Creatinine 1.1 mg/dL (0.7-1.3) 02/12/24 04:23
eGFR > 60.00 02/12/24 04:23
Glucose 102 mg/dl (70-99) H 02/12/24 04:23
Calcium 7.7 mg/dl (8.4-10.2) L 02/12/24 04:23
Phosphorus 3.7 mg/dl (2.5-4.5) 02/07/24 04:41
Hoo-B-Vmugwyhluic Pept 7400 pg/ml 02/11/24 03:56
Albumin 2.7 g/dl (3.5-5.0) L 02/07/24 04:41
Physical Exam
-
Vital Signs:
Vital Signs
Temp Pulse Resp BP Pulse Ox
98.0 F 84 28 135/95 95
02/12/24 07:04 02/12/24 08:12 02/12/24 06:00 02/12/24 08:12 02/12/24 06:00
Cardiovascular:: Regular rate and rhythm
Respiratory:: Bilateral: Coarse
Lung Excursion:: Abnormal
Abdomen:: Nontender and Soft
Extremity Edema:: None: Bilateral:
Street Catheter: No
--- NOTE | 2024-02-12 09:38 | W.PN.ID1 ---
Date of Service
Date of Service: February 12, 2024
Today's Communication
- c/w cefazolin and metronidazole
- PICC removal before dc
- planned for amputation of foot when medically optimized, then would stop antibiotics
Assessment / Plan
Osteomyelitis of the L heel
Left heel ulcer with wet gangrene s/p debridement to bone
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
RAUL on CKD
Class II obesity
- 01/28 tissue culture with MSSA, no anaerobic culture done
- c/w cefazolin and metronidazole
- PICC removal before dc
- planned for amputation of foot when medically optimized, then would stop antibiotics
����������������������������������������������������������
Chief Complaint
-: Other (calceneal osteomyelitis, L foot)
Subjective / Review of Systems
afebrile
bp stable
had trouble tolerating bipap overnight, when taken off required 15L NC
Vital Signs / Physical Exam
Vital Signs
Vital Signs
Temp Pulse Resp BP Pulse Ox
98.0 F 84 28 135/95 95
02/12/24 07:04 02/12/24 08:12 02/12/24 06:00 02/12/24 08:12 02/12/24 06:00
Physical Exam
Constitutional: No Acute Distress and Chronically Ill
Cardiovascular: Regular Rate and S1/S2; Negative Murmur or Rub
Pulmonary: Clear and Symmetric; Negative Wheezes or Rales
Gastrointestinal: Soft, Non Tender, Non Distended and Normal Bowel Sounds
Skin: Warm and Dry; Negative Rash or Jaundice
Wound: Other (dressing take down deferred)
Objective Data
Lab Data
Lab Results
02/09/24 03:45
02/12/24 04:23
ESR 95 mm/hour (0-20) H 01/28/24 07:14
PT 27.4 Sec (11.4-14.6) H 01/31/24 08:53
INR 2.50 01/31/24 08:53
APTT Cancelled 02/03/24 10:45
Estimated Creat Clear 67 ml/min 02/12/24 04:23
Lactic Acid 1.1 mmol/L (0.7-2.0) 01/31/24 04:35
Total Bilirubin 0.5 mg/dl (0.2-1.3) 02/07/24 04:41
AST 34 U/L (17-59) 02/07/24 04:41
ALT 15 U/L (0-50) 02/07/24 04:41
Alkaline Phosphatase 160 U/L (38-126) H 02/07/24 04:41
C-Reactive Protein > 270.00 mg/L (0.0-10.00) H 01/28/24 07:41
Most recent labs reviewed.
Micro Results:
02/06/24 10:25 C. difficile GDH Antigen & Toxins - Final
Feces/Stool Negative for toxigenic C.difficile
- Final
Negative for Norovirus GI and GII.
01/31/24 12:12 Blood Culture - Final
Blood/Venous No Growth - Final Report
01/31/24 11:15 Blood Culture - Final
Blood/Venous No Growth - Final Report
01/28/24 12:25 Blood Culture - Final
Blood/Venous No Growth - Final Report
01/29/24 15:30 Tissue Culture - Final
Foot - Left S aureus-Methicillin Sensitive
Gram Stain - Final
01/28/24 14:04 MRSA Screen - Final
Nose No Methicillin Resistant Staphylococcus aureus isolated.
--- NOTE | 2024-02-12 09:40 | W.PN.PUL3 ---
Today's Communication / Plan
-
Doing relatively well post extubation, maintained on BIPAP at night
He remains full code
Wean O2 as tolerated
IV abx ongoing for LE infection
PT/OT, OOB recommended
Daughter cannot find his home PAP unit, we will c/s CM for DME set up
-----
Patient is a 73-year-old M with COPD, ERICK, OHS. They have had hospital readmissions with a chief complaint of shortness of breath and respiratory failure. The patient has a PaCO2 of 71mmHg on 15 L of oxygen. Due to the patient's comorbidities as
noted above and hypoventilation, the patient is at risk for worsening chronic respiratory failure. I have considered bilevel, bilevel ST and bilevel VAPS therapy and they have all been ruled out due to the patient's worsening clinical condition.
The patient now requires a unique mode of ventilation not offered on less costly options. The patient requires a device that will not fail in the event of a power failure and is also portable for mobility within the home when needed. Due to the
patient's worsening condition, I am prescribing NIV therapy to decrease the chance of continued unexplained expensive medical encounters including physician office visits, emergency/urgent care treatment and hospital readmissions.
Assessment
-
Patient is a 73-year-old male with previous history of hypertension, hyperlipidemia, CHF admitted to on 01/28/2024 for nonhealing left heel wound. He notes that he had a blister that was broken up and on his left heel and was prescribed a
topical antibiotic which did not improve his symptoms. Vascular was consulted and due to progressive lethargy, there is concern for ongoing sepsis. Underwent urgent debridement of heel on 01/29/2024 and transferred postoperatively to ICU.
Impression:
Unresponsiveness, acute hypoxic respiratory failure status post intubation 01/30/24 --> extubated 02/05/2024 --> now awake but confused at times
Acute on chronic congestive heart failure exacerbation with reduced ejection fraction --> improved and close to dry weight
Wet gangrene of the left heel s/p excisional debridement through bone with lavage and irrigation 01/29/2024 - wound Cx grew MSSA
Nonhealing left heel wound
Nausea/vomiting and diarrhea with flat plate concerning for ileus vs early SBO (likely the former)
Leukocytosis
RAUL, creatinine 1.9 (Cr baseline: approx. 1.2-1.3) - RAUL improved
Hypernatremia (mild) - resolved
DM type II c/b hyperglycemia (HbA1C: 6.4 on 01/29/2024)
Chronic hypercapnic respiratory failure with metabolic alkalosis
Conditions present prior to admission
History of heart failure, ICM worsened LVEF at 30-35% - TTE 09/11/23
Hypertension
Hyperlipidemia
Morbid obesity, BMI 40.4
Left anterior fascicular block, chronic
History of persistent atrial fibrillation on Eliquis
Coronary disease with history of WI 20+ years ago
History of TIA
Severe sleep apnea, HST AHI 61/78%, failed CPAP 2021
Diabetes
Chronic DJD, back pain
[id number], quit
Chronic cough, COPD/RLD on PFTs, follows at [facility]-Dr Montiel/Chanelle
PAD
Plan
Given patient's chronic hypercapnia likely due to obesity hypoventilation syndrome, he was recommended to continue with BiPAP with sleep
ABG (02/10) shows compensated hypercarbia pH 7.38 and pCO2 62; serum bicarbonate from blood work is 38
Repeat VBG 7.37/71 today
Of note, he carries a history of severe obstructive sleep apnea intolerant to CPAP in the past
Recommend outpatient evaluation for sleep disordered breathing given morbid obesity with thick neck
Keep SpO2 >90-94%
Daughter cannot find his old BIPAP device, has requested new set up
CM consult for DME set up
CT head and neck obtained on 01/30/2024 --> bilateral carotid disease noted
Nephrology recs appreciated - trend sCr, I/O and UOP
Troponin peaked at 0.110 on 01/31/2024� cardiology consulted and recommendations appreciated; no need to continue trending troponin
Cardiac history as noted above-Patient follows cardiology (Kim)
Transthoracic echo from 12/12/2023 shows LVEF 35-40% --> echo repeated on 02/04 showed LVEF 35% with severe hypokinesis of the mid�distal
anterior, anteroseptal and apical dahl consistent with a mid LAD infarct; severe LAE
He underwent LHC and RHC on 09/13/2023 showed reduced CI at 1.36 and low PCWP at 13 with slightly elevated PADP at 17mmhg with mild pHTN
(mPAP: 23mmHg)
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
Rate control with goal HR<110bpm
Replete K>4, Mg>2
Unresponsiveness status post intubation 01/29 --> he was extubated on 02/04
CTA chest from 01/30/2024 shows large bilateral pleural effusions with bilateral mosaic attenuation likely due to interstitial edema, without acute PE
CXR on 02/09/2024 still shows evidence of pleural effusions with subsegmental atelectasis
At risk for reintubation if noncompliant with PAP
He is full code
Diet as per COMPUTED TOMOGRAPHY TECHNICIAN; continue with aspiration precautions
GI ppx: N/A (continue pepcid as this is a home med)
Aspiration precautions
Non healing would of LLE, on abx for coverage, concern for sepsis --> currently on Ancef + flagyl since 02/03 s/p Unasyn and meropenem
s/p debridement 01/29/24, tissue culture grew MSSA; wound vac
Blood culture negative
Vasc surgery saw pt on 02/01 --> patient is at high risk for limb loss due to extent of heel wound + bone exposure; no acute need for surgical intervention at this point
Given his nausea/vomiting and diarrhea starting on evening of 02/04, ID ordered C-diff (negative) and norovirus stool studies (also negative)
Flat plate done on 02/05 showed concern for ileus versus early SBO (suspect the former) - General Surgery consulted and recommended clear liquid diet; hold off on NGT for now and continue to monitor; repeat flatplate and if shows continued findings
of dilated bowel then would consider CT abdomen/pelvis with oral contrast
Monitor function/IOs
Nephrology consulted and recommendations appreciated
Renally dose all meds/Abx; avoid nephrotoxic agents
Diuresis with lasix 40mg daily
CBC stable
Transfuse if needed to keep Hb >7, platelets >20k
DVT ppx: Eliquis
PT/OT when able
Goal BG 140-180
Diabetic SENIOR JAVA J2EE DEVELOPER consulted
Continue basal-bolus SQ insulin for now
Patient has a follow-up with our pulmonary office on 03/26/[address] Candelaria - I advised him to keep this appointment.
Pulmonary service will continue to briefly follow along
Diagnostic Data
CXR 02/05/2024: Nasrin is not particularly well seen on this projection. Tip of the endotracheal tube likely approximately 1.5 cm above the nasrin, similar to prior. Enteric catheter and left upper extremity PICC in position. Low lung volumes.
Bilateral small pleural effusions and adjacent atelectasis/consolidation.
Chest X-Ray: 01/28/24- No acute cardiopulmonary process.
09/14/23- No active cardiopulmonary disease.
Flat Plate 02/06/2024: Increased mild distention of small bowel, ileus versus at least partial distal small bowel obstruction.
CTA Chest 01/30/2024:Markedly limited study, as detailed above, with no findings to suggest bilateral CENTRAL pulmonary embolism. Large right lower lobe consolidation and moderate right pleural effusion.Left lower lobe subsegmental atelectasis and
small left pleural effusion. Groundglass opacity and mild septal thickening suggesting mild to moderate pulmonary edema. Endotracheal tube with tip in trachea above the nasrin. No pneumothorax.
CT Scan: CHEST 10/18/22- Stable small perifissural pulmonary nodules along the left major fissure. Stable mild small reticulonodular interstitial opacities in the bilateral upper lobes, right > left
CAP 05/04/22- No acute pathology of the chest, abdomen and pelvis identified. Few left upper and lower lobe pulmonary nodules. Bilateral small renal cysts. Bilateral too small to characterize hypodense renal lesions, likely benign cysts. Moderate
fecal material throughout the colon. Mild diverticulosis.
Echo: 12/12/23- Moderately reduced left ventricular systolic function. Estimated left ventricular ejection fraction is 35-40% . Wall motion analysis is limited due to image quality. Mild mitral regurgitation. Compared to the previous report
12/12/2023 findings are similar no significant change previously estimated ejection fraction 35%
PFT's: 03/29/23 FEV1 1.91 L 77%, FVC 2.57 L 75%, ratio 74. TLC 3.63 L 59%, DLCO 60%--moderately severe restriction, mild diffusion impairment
Reports and relevant images were personally reviewed.
-----
Total time spent today was 50 minutes for this encounter. Time includes reviewing laboratory test/imaging results, reviewing pertinent medical records, obtaining and reviewing medical history, performing an appropriate exam, ordering medications,
tests and procedures. Time also includes documentation of this encounter, coordinating patient care and communicating with other healthcare professionals. Total time does not include separately billed tests performed on this date of service.
Subjective Data
-
Date of Service:
Date of Service: February 12, 2024
Chief Complaint: Pulmonary Follow Up
Subjective:
No new events ON, continues with BIPAP
Daughter at bedside
Objective Data
Data Reviewed
Vital Signs / I&O / Oxygen:
Vital Signs
Temp Pulse Resp BP Pulse Ox
98.0 F 84 28 135/95 95
02/12/24 07:04 02/12/24 08:12 02/12/24 06:00 02/12/24 08:12 02/12/24 06:00
Intake and Output
02/11/24 02/12/24 02/13/24
06:59 06:59 06:59
Intake Total 720 / 720 540 / 540
Output Total 2125 / 2125 2200 / 2200
Balance -1405 / -1405 -1660 / -1660
SaO2 [CPAP/PSV] 98
SaO2 [A/C] 100
SaO2 95
Nasal Cannula flow liters per 45
minute
Physical Exam
General: Respiratory Distress (negative), Chills (negative) and Sweats (negative)
HEENT: Normocephalic, Anicteric and Moist Mucous Membranes
Cardiovascular: S1-S2, Regular Rhythm, Rub (negative) and Peripheral Edema (+1 lower extremity pitting edema bilaterally)
Respiratory: Wheeze (negative), Crackles (Bilateral), Rhonchi (negative) and Non-Labored Respirations
GI: Soft, Distended (Abdominal obesity), Non Tender and Normal Bowel Sounds
Neurology: Awake, Alert, No Motor Deficits and Tremors (negative)
Skin: Warm, Dry and Cyanosis (negative)
Labs/Micro/Reports
Lab Data
02/09/24 03:45
02/12/24 04:23
--- NOTE | 2024-02-12 09:52 | W.PN.HOSP.TC ---
Today's Communication/Plan
-
IV lasix
Antibiotics
O2 support
Assessment / Plan
Assessment / Plan
ssessment -73 Yo M with PMHx significant for peripheral vascular disease, CKD stage IIIb, CAD, permanent A-fib, TIA, hypertension, hyperlipidemia, insulin-dependent type 2 diabetes mellitus, with multiple comorbidities presented to the hospital with
sepsis due to left foot plantar infected diabetic foot ulcer with underlying PAD.
Plan -
Severe sepsis-
Secondary to diabetic left plantar foot ulcer with underlying peripheral vascular disease.
Status post sharp excisional debridement by vascular surgery team on 01/28, lactic acid levels on 01/29 at 5.4.
Left heel bone biopsy growing MSSA, patient was initially started on IV cefepime and vancomycin then transition to meropenem and vancomycin and then to Unasyn.
ID on board, appreciate inputs.
Patient is currently on cefazolin and metronidazole.
Initial plan for staged revascularization procedure is switched to BKA of his left foot by vascular team, tentatively to be scheduled for next week, if patient is more stabilized.
Ventilator dependent respiratory failure- extubated on 02/05/24.
Acute on chronic hypoxic respiratory failure.
Overnight patient's oxygen need escalated from mid flow to high flow at [address] x-ray evident for pulmonary edema. Repeat chest x-ray today.
Also history of PHTN, untreated, precapillary likely secondary to ERICK.
Repeat ABG within normal limits
Shock-01/29.
Unclear etiology whether septic versus cardiogenic.
CT PE negative for pulmonary embolism, however there is some evidence for mild to moderate pulmonary edema.
[place] [address] upon admission, reduced to 6210 on 02/07/24. Elevated lactic acid levels at 5.4 upon admission.
Patient is off of sedatives and pressors - Day 3 today.
Partial small bowel obstruction versus ileus.
Surgery on board, recommended to continue advancing diet as tolerated and monitor for symptoms.
Patient currently denies having any nausea however did not pass any gas or bowels since 3 PM in the afternoon yesterday.
Appreciate surgery inputs, continue to monitor patient for symptoms.
RAUL on CKD stage 3b
likely secondary to cardiorenal syndrome.
Cr down to 1.5, baseline is at 1.2 . Currently at 1.3
Continue to trends weights, I and O, and
Patient is currently at 106.4 kgs. gentle diuresis per nephro.
Currently patient is alkalotic and hypercarbic.
Avoid nephrotoxic agents. Discontinued bicarbonate yesterday.
Renal on board, appreciate inputs.
Acute on Chronic HFrEF -
Likely secondary to sepsis in the setting of pre-existing CAD and heart failure.
Exacerbated yesterday after initiation of IVF for his hypernatremia.
X ray showed increased pleural effusion and mild interstitial edema.
Gentle diuresis today. Reassess him on day to day basis for diuresis based on his volume status.
Cardiology on board. Appreciate input
Most recent echocardiogram-09/26-EF 30 to 35%.
Continue GDMT as tolerated. Cardiology added metoprolol today.
will reassess tachycardia after taking metoprolol.
Peripheral vascular disease-
No plan for staged revascularization procedure due to clinical instability.
Patient is currently on Eliquis.
Status post left lower extremity arteriogram and stent to SFA, angioplasty to PT per vascular surgery in 09/26.
Permanent A-fib
On metoprolol.
[id number] score-Transitioned back to Eliquis from heparin.
Questionable PVCs on telemetry in the a.m. today. Obtain an EKG.
Hypernatremia -
likely secondary to hemoconcentration from Diuresis.
Speech eval - NPO after intubation yesterday.
Recommended regular diet today.
recommend adequate oral hydratipon.
Discontinue tube feeds.
Reassess for hypernatremia tomorrow.
Leukocytosis-
White blood cell count trending up again.
Suspect secondary to partial small bowel obstruction, not considered as inadequate response to antibiotics.
ID on board, appreciate inputs.
Type 2 diabetes mellitus-
HbA1c at 6.4.
Boydxjivs-Gfeksbr-10 units daily. Developed hypoglycemia on Tresiba - 02/07/24, diabetes nurse practitioner consulted for diabetes education and management.
Tube feeds discontinued. Overnight insulin requirement was low.
Continue to monitor glucose with tight glycemic control.
Elevated troponins
Type II demand ischemia
Troponins trended down on 02/02.
Cardiology on board.
Previous history of coronary artery disease.
[place] acquired delirium
Delrium precautions
Reorientation
DUe to resp status would avoid melatonin and other sedative
DVT prophylaxis-on Eliquis
CODE STATUS full code
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
CAD-continue his home meds-aspirin.
Hypertension-continue lisinopril.
Hyperlipidemia-continue Lipitor.
TIA
Asthma
Morbid obesity
Hypoglycemia
Investigations -
Chest X-Ray:
02/07/24 - Slightly increased size of the small right pleural effusion with adjacent atelectasis. There is a likely trace left pleural effusion with adjacent atelectasis, similar to prior.
Mild interstitial edema.
02/05/24 -
As above, flip is not particularly well seen on this projection. Tip of the endotracheal tube likely approximately 1.5 cm above the flip, similar to prior. Enteric catheter and left upper extremity PICC in position.
Low lung volumes. Bilateral small pleural effusions and adjacent atelectasis/consolidation.
01/28/24- No acute cardiopulmonary process.
09/14/23- No active cardiopulmonary disease.
Abdomen X ray -
02/01/24- Nasogastric tube is seen with tip in the distal stomach. Study is otherwise stable.
CTA - 01/30/24 -
Scattered mild to moderate calcified plaque of the common carotid arteries, bilaterally. Bilateral bulb calcified plaque and calcified plaque at the ICA origin and proximal internal carotid arteries.
Distal left common carotid artery estimated luminal diameter reduction of 65%. Proximal left ICA estimated luminal diameter reduction of approximately 60%.
Proximal right ICA estimated luminal diameter reduction of approximately 50%.
Bilateral cavernous ICA calcified plaque with estimated luminal diameter reduction of less than 50%.
Normal variant absent right anterior cerebral artery A1 segment, with the A2 segment supplied by a patent anterior to be encasing artery.
Otherwise, no intracranial cerebral artery plaque, stenosis, occlusion, or aneurysm.
The vertebral arteries are patent. Patent basilar artery.
Moderate right and small left pleural effusion. Pulmonary parenchymal consolidation, right greater than left, atelectasis versus pneumonia. Mild superior mediastinal adenopathy.
CT Scan: CHEST 10/18/22- Stable small perifissural pulmonary nodules along the left major fissure. Stable mild small reticulonodular interstitial opacities in the bilateral upper lobes, right greater than left.
CAP 05/04/22- No acute pathology of the chest, abdomen and pelvis identified. Few left upper and lower lobe pulmonary nodules. Bilateral small renal cysts. Bilateral too small to characterize hypodense renal lesions, likely benign cysts. Moderate
fecal material throughout the colon. Mild diverticulosis.
Echo: 12/12/23- Moderately reduced left ventricular systolic function. Estimated left ventricular ejection fraction is 35-40% . Wall motion analysis is limited due to image quality. Mild mitral regurgitation.
Compared to the previous report 12/12/2023 findings are similar no significant change previously estimated ejection fraction 35%
PFT's: 03/29/23 FEV1 1.91 L 77%, FVC 2.57 L 75%, ratio 74. TLC 3.63 L 59%, DLCO 60%--moderately severe restriction, mild diffusion impairment
Anticipated Discharge: > 48 hours
Subjective/Interval History
-
Date of Service: February 12, 2024
Continues to remain short of breath
Objective Data
-
Labs:
Laboratory Results
02/12/24
04:23
Sodium 141
Potassium 3.8
Chloride 97 L
Carbon Dioxide 35 H
BUN 29 H
Creatinine 1.1
Glucose 102 H
Calcium 7.7 L
Vital Signs:
Vital Signs
Temp Pulse Resp BP Pulse Ox
98.0 F 84 28 135/95 95
02/12/24 07:04 02/12/24 08:12 02/12/24 06:00 02/12/24 08:12 02/12/24 06:00
I&O
02/11/24 02/12/24 02/13/24
06:59 06:59 06:59
Intake Total 720 / 720 540 / 540
Output Total 2125 / 2125 2200 / 2200 275 / 275
Balance -1405 / -1405 -1660 / -1660 -275 / -275
Review of Systems
-
History Source: Patient
Constitutional: Reports Fatigue; Denies Fever, Weight Loss or Weakness
EENT: Reports No Symptoms Reported
Respiratory: Reports Trouble Breathing and Wheezing
Cardiac: Reports PND and Orthopnea; Denies Chest Pain, Palpitations or Syncope
Abdomen/GI: Denies Abdominal Pain, Nausea or Vomiting
Genitourinary: Reports No Symptoms
Musculoskeletal: Reports No Symptoms
Skin: Reports No Symptoms
Neuro: Reports No Symptoms
Endocrine: Reports No Symptoms
Hematologic / Lymphatic: Reports No Symptoms
Allergy / Immunology: Reports No Symptoms
Physical Exam
-
General: Comfortable (On 15 L mid flow nasal cannula.) and Appears in Distress (Mild.)
HEENT: Moist Mucous Membranes and PERRLA
Respiratory: Wheezes and Crackles; Negative Rales or Rhonchi
Cardiac: Regular Rhythm and S1/S2; Negative Murmur, Rub or Gallop
GI: Soft, Nontender and Normal Bowel Sounds
Musculoskeletal: No Clubbing, No Cyanosis and Other (1+ pitting edema in bilateral lower extremity.)
Skin: Warm
Neuro: Awake, Alert and No Motor Deficits
Psych: Calm
[2024-02-12] MEDS: LASIX 40 MG IV ×2 (10:08→17:39)
[2024-02-12] MEDS: FLUSH (NSS) 2 FLUSH IV (10:09)
--- NOTE | 2024-02-12 10:12 | CM ---
Patient seen at bedside with daughter Lalitha
states tentative surgery on Monday
CXR obtained - bilateral lower lung haziness possibly consistent with interstitial
IV lasix today
CM to continue to follow for needs
follow for iv abx needs
PLAN: [facility] when medically stable
--- NOTE | 2024-02-12 11:03 | W.PN.CD ---
Today's Communication / Plan
-
- Increase BB
-Continue aspirin and Eliquis
-Plan is for amputation
OK to hold Eliquis for surgery
Impression / Plan
-
Impression/Plan: 73 y/o male (known to Dr. 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
non-healing left foot ulcer/wet gangrene complicated by sepsis now s/p left heal debridement, subsequently complicated by VDRF and hypotension requiring pressor support.
HFrEF, LVEF 35% 02/2024
- goal weight 105.7-107 kg
- Lasix 40 mg PO QD
- Continue HF beta misha
- Later consider MRA
- Add back his SGLT2-I and lisinopril prior to hospital discharge
Left heal wet gangrene/septic shock/ osteomyelitis
-Pre op assessment
- Patient will likely require amputation.
- Increased risk due to recent heart failure, cardiomyopathy, CAD and afib.
- Considering the importance of surgery with sepsis and osteo, it is reasonable to proceed with surgery this admission
- OK to hold Eliquis 48 hours pre op.
Ischemic cardiomyopathy
-Chronic.
-LVEF = 35%.
-GDMT: will hold GDMT perioperative pending vascular surgery and reintroduce post-operatively
Nonsustained VT
- 13 seconds over the weekend
- Increase BB
- Later can consider primary prevention ICD
Permanent Atrial fibrillation
Coronary artery disease, old IL, chronically occluded LAD.
RAUL resolved
Anemia
Subjective:
No CP or dyspnea
DATA:
Echo 02/05/2024: Left ventricular ejection fraction is 35%; no significant valvular disease.
Cath 09/13/2023:
1. Right dominant circulation with a 50% lesion in the distal third of the RPDA, a diffusely diseased, small first obtuse marginal, a 30% lesion in the mid ramus, a 40% lesion in the origin of the first diagonal and a chronic total occlusion of the
mid LAD (known since cardiac catheterization in 1999).
2. Normal filling pressures (LVEDP = 10 mmHg, PCWP = 13 mmHg at 105.7 kg).
3. Severely impaired cardiac function (cardiac index = 1.36 L/min/m�, a VO2 difference 8.63 volume percent).
4. Mild precapillary pulmonary hypertension (mean PA pressure = 23 mmHg, PVR = 3.44 Moser units).
5. Significantly elevated peripheral vascular resistance (1787 dynes*seconds*cm^5).
Physical Exam
Vital Signs/Labs
Vital Signs
Temp Pulse Resp BP Pulse Ox
98.0 F 80 28 117/65 95
02/12/24 07:04 02/12/24 10:08 02/12/24 06:00 02/12/24 10:08 02/12/24 06:00
02/11/24 02/12/24 02/13/24
06:59 06:59 06:59
Actual Weight 106.3 kg
02/09/24 03:45
02/12/24 04:23
PT 27.4 Sec (11.4-14.6) H 01/31/24 08:53
INR 2.50 01/31/24 08:53
APTT Cancelled 02/03/24 10:45
Magnesium 1.9 mg/dl (1.6-2.3) 02/12/24 04:23
Triglycerides 150 mg/dl (10-149) H 02/05/24 03:31
01/31/24 02/07/24 02/11/24
09:09 04:41 03:56
Xio-V-Eylpieafarl Pept [id number]
Physical Exam
Constitutional: No acute distress
Cardiovascular: Rhythm/rate is irregular
Respiratory: Respiratory effort normal and Lungs clear to auscul.
GI: Soft and Distention absent
Neuro/Psych: Alert
Data Reviewed
-
Date of Service: February 12, 2024
[2024-02-12 12:43] LABS: Glucose - Point of Care 124 mg/dl (70-99)
[2024-02-12] MEDS: NOVOLOG FLEXPEN SC (13:43)
--- NOTE | 2024-02-12 14:46 | CM ---
Addendum entered by Merced Cristobal 02/12/24 16:12:
faxed Jailene at [facility] the NIV prescription fax: [phone]
Original Note:
[facility] consultation received.
Patient's oxygen supplier is [facility], spoke with Jailene Souza.
Per Jailene no bipap supplied by them in the past.
Per Jailene [facility] is not available anymoe, they use [employer] or [facility].
Faxed face sheet, ABG, progress note and respiratory flow sheet to fax#[phone].
[2024-02-12 14:47] LABS: Hematocrit 31.2 % (39.0-52.0); Hemoglobin 9.2 g/dL (13.0-18.0); Mean Corp Hgb Conc. 29.5 g/dL (33.0-37.0); Mean Corpuscular Hgb 25.5 pg (27.0-31.0); Mean Corpuscular Volume 86.4 fL (80.0-94.0); Mean Platelet Volume 10.9 fL (7.4-10.4); Platelet Count 303 10^3/uL (130-400); Red Blood Cell Count 3.61 10^6/uL (4.70-6.10); Red Cell Dist. Width 20.3 % (11.5-14.5); White Blood Cell Count 13.2 10^3/uL (4.8-10.8)
--- NOTE | 2024-02-12 15:03 | WOUNDNOTE ---
[facility] RN note: JETHRO Malone requested this staff writer to assess coccyx pressure injury. Patient has a new deep dermal appearing stage 2 upside down 'V' shaped coccyx pressure injury. Ulcer pink with yellow fibrin. Patient has to have HOB elevated d/t
respiratory status. Patient extubated 02/05/24. As per physician note 'no plan for staged re-vascular procedure d/t clinical instability'. L heel dressing D+I. Patient at risk for pressure injury despite preventative measures in place d/t overall
medical condition. Po intake documented 50% or greater. He is on a ITNApplication Craft air bed. He has his gel chair cushion, foam turning wedge and a AmmadouVFramehawke heel relief boot on LLE. Patient has been having loose stools today. [place] care given.
Silicone border foam applied to coccyx. Patient turned to R semi side lying position with help from DEEPA Cristobal. R heel off bed with pillow. Skin on R heel intact. Will update hospitalist resident re: coccyx pressure injury. Care plan to be updated.
Will follow as needed.
[2024-02-12 15:29] LABS: APTT 40.1 Sec (23.4-35.0)
--- NOTE | 2024-02-12 16:04 | WOUNDNOTE ---
[facility] RN note: Arsen Phillips re: recommend air mattress at SNF; patient has a deep dermal stage 2 coccyx pressure injury.
[2024-02-12 17:11] LABS: Glucose - Point of Care 122 mg/dl (70-99)
[2024-02-12] MEDS: LIPITOR 80 MG PO (17:40)
[2024-02-12] MEDS: HEPARIN 25000 UNITS/250 ML IV (20:49)
[2024-02-12] MEDS: PEPCID 20 MG PO (21:06)
[2024-02-12] MEDS: LANTUS 0.2 UNITS SC (22:08)
[2024-02-12 22:13] LABS: Glucose - Point of Care 132 mg/dl (70-99)
[2024-02-13] VITALS (19 sets, daily range): BP systolic 101–154; BP diastolic 43–94; PULSE 3–92
[2024-02-13] MEDS: ATIVAN 0.5 MG PO (00:36)
[2024-02-13] MEDS: ANCEF 10 IV ×3 (01:54→17:59)
[2024-02-13 03:19] LABS: % Basophils 0.5 % (0-2); % Eosinophils 2.4 % (0-6); % Immature Granulocytes 0.5 % (0-0.5); % Lymphocytes 6.9 % (20.5-51.1); % Monocytes 3.8 % (1.7-9.3); % Neutrophils 85.9 % (42.2-75.2); Absolute Basophils 0.1 10^3/uL (0-0.2); Absolute Eosinophils 0.4 10^3/uL (0-0.7); Absolute Immature Granulocytes 0.1 10^3/uL (0-0.05); Absolute Monocytes 0.6 10^3/uL (0.1-0.6); Absolute Neutrophils 12.9 10^3/uL (1.4-6.5); Hematocrit 32.2 % (39.0-52.0); Hemoglobin 9.7 g/dL (13.0-18.0); Mean Corp Hgb Conc. 30.1 g/dL (33.0-37.0); Mean Corpuscular Hgb 25.8 pg (27.0-31.0); Mean Corpuscular Volume 85.6 fL (80.0-94.0); Mean Platelet Volume 10.4 fL (7.4-10.4); Nucleated Red Blood Cells % 0 % (-); Platelet Count 302 10^3/uL (130-400); Red Blood Cell Count 3.76 10^6/uL (4.70-6.10); Red Cell Dist. Width 20.4 % (11.5-14.5)
[2024-02-13 03:29] LABS: APTT 72.4 Sec (23.4-35.0)
[2024-02-13 04:15] LABS: Blood Urea Nitrogen 27 mg/dl (9-20); Carbon Dioxide 40 mmol/L (22-30); Chloride 94 mmol/L (98-107); Estimated Creatinine Clearance 73 ml/min; Glucose 107 mg/dl (70-99); Magnesium 1.8 mg/dl (1.6-2.3); Potassium 3.6 mmol/L (3.5-5.1); Sodium 141 mmol/L (135-145); eGFR > 60.00
[2024-02-13 05:24] LABS: Glucose - Point of Care 116 mg/dl (70-99)
[2024-02-13 05:30] LABS: B.E. 11.9 mmol/L; O2 Saturation % 97.2 % (94-98); PO2 92 mmHg (83-108); pH 7.32 (7.35-7.45)
[2024-02-13 05:35] LABS: O2 Therapy 50%
[2024-02-13 05:36] LABS: HCO3 40.7 mmol/L (21-28); PCO2 79 mmHg (35-48)
--- NOTE | 2024-02-13 06:04 | W.PN.UPDATE ---
Update Note
Progress Note Update
Called to patient room by nursing due to patient pulling off his bipap mask and desaturating down to 60s with ashen color. High flow placed, color and saturations improved. ABG done. 7.32/79/40.7 with pO2 92. Placed back on bipap and patient agrees
to keep it on. ABG scheduled for 0800. Staff member at bedside to support patient. He agrees to leave it on. He does not appear obtunded. VSS are stable. Plan is for right heart cath today.
--- NOTE | 2024-02-13 07:59 | W.PN.HOSP.TC ---
Today's Communication/Plan
-
IV Lasix twice daily.
Monitor weight regularly.
Ultrasound of the chest, if notable for enough fluid, IR consult for pleural fluid drained.
Add Diamox.
Continue BiPAP.
Assessment / Plan
Assessment / Plan
ssessment -73 Yo M with PMHx significant for peripheral vascular disease, CKD stage IIIb, CAD, permanent A-fib, TIA, hypertension, hyperlipidemia, insulin-dependent type 2 diabetes mellitus, with multiple comorbidities presented to the hospital with
sepsis due to left foot plantar infected diabetic foot ulcer with underlying PAD.
Plan -
Severe sepsis-
Secondary to diabetic left plantar foot ulcer with underlying peripheral vascular disease.
Status post sharp excisional debridement by vascular surgery team on 01/28, lactic acid levels on 01/29 at 5.4.
Left heel bone biopsy growing MSSA, patient was initially started on IV cefepime and vancomycin then transition to meropenem and vancomycin and then to Unasyn.
ID on board, appreciate inputs.
Patient is currently on cefazolin and metronidazole.
BKA of his left foot by vascular team scheduled tentatively for tomorrow. Currently patient's breathing status not stable.
Ventilator dependent respiratory failure- extubated on 02/05/24.
Acute on chronic hypoxic respiratory failure.
Patient is back on BiPAP. Although there is some pulmonary component to it, suspect BiPAP and oxygen requirement secondary to heart failure.
CT x-ray evident for pulmonary edema. Chest x-ray showed worsening pleural effusion and pulmonary edema.
Also history of PHTN, untreated, precapillary likely secondary to ERICK.
Repeat ABG within normal limits
Acute on Chronic HFrEF -
Likely secondary to sepsis in the setting of pre-existing CAD and heart failure.
Exacerbated yesterday after initiation of IVF for his hypernatremia. On
X ray showed increased pleural effusion and mild interstitial edema.
Gentle diuresis today. Reassess him on day to day basis for diuresis based on his volume status.
Cardiology on board. Appreciate input
Most recent echocardiogram-09/26-EF 30 to 35%.
Continue GDMT as tolerated. Cardiology added metoprolol today.
Patient had 13 seconds of NSVT and metoprolol dose bumped to 50.
Patient's dry weight has likely changed given his Chronic illness and intubation. Suspect dry weight is much lower than 105kgs. IV Lasix bumped to twice daily. Add Diamox.
I will ask consult for possible pleural effusion drained based on his ultrasound chest results.
Shock-01/29.
Unclear etiology whether septic versus cardiogenic.
CT PE negative for pulmonary embolism, however there is some evidence for mild to moderate pulmonary edema.
[place] [address] [place] admission, reduced to 6210 on 02/07/24. His repeat proBNP levels on 02/11/2024 at 7400. Elevated lactic acid levels at 5.4 upon admission.
Patient is off of sedatives and pressors -for more than a week now.
Partial small bowel obstruction versus ileus.
Surgery on board, recommended to continue advancing diet as tolerated and monitor for symptoms.
Patient currently denies having any nausea however did not pass any gas or bowels since 3 PM in the afternoon yesterday.
Appreciate surgery inputs, continue to monitor patient for symptoms.
RAUL on CKD stage 3b
likely secondary to cardiorenal syndrome.
Cr down to 1.5, baseline is at 1.2 . Currently at 1.3
Continue to trends weights, I and O, and
Patient is currently at 106.4 kgs. gentle diuresis per nephro.
Currently patient is alkalotic and hypercarbic.
Avoid nephrotoxic agents. Discontinued bicarbonate yesterday.
Renal on board, appreciate inputs.
Peripheral vascular disease-
No plan for staged revascularization procedure due to clinical instability.
Patient is currently on Eliquis.
Status post left lower extremity arteriogram and stent to SFA, angioplasty to PT per vascular surgery in 09/26.
Permanent A-fib
On metoprolol.
[id number] score-Transitioned back to Eliquis from heparin.
Questionable PVCs on telemetry in the a.m. today. Obtain an EKG.
Hypernatremia -
likely secondary to hemoconcentration from Diuresis.
Speech eval - NPO after intubation yesterday.
Recommended regular diet today.
recommend adequate oral hydratipon.
Discontinue tube feeds.
Reassess for hypernatremia tomorrow.
Leukocytosis-
White blood cell count trending up again.
Suspect secondary to partial small bowel obstruction, not considered as inadequate response to antibiotics.
ID on board, appreciate inputs.
Type 2 diabetes mellitus-
HbA1c at 6.4.
[id number]-70 units daily. Developed hypoglycemia on Tresiba - 02/07/24, diabetes nurse practitioner consulted for diabetes education and management.
Tube feeds discontinued. Overnight insulin requirement was low.
Continue to monitor glucose with tight glycemic control.
Elevated troponins
Type II demand ischemia
Troponins trended down on 02/02.
Cardiology on board.
Previous history of coronary artery disease.
/Hospital acquired delirium
Delrium precautions
Reorientation
DUe to resp status would avoid melatonin and other sedative
DVT prophylaxis-on Eliquis
CODE STATUS full code
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
CAD-continue his home meds-aspirin.
Hypertension-continue lisinopril.
Hyperlipidemia-continue Lipitor.
TIA
Asthma
Morbid obesity
Hypoglycemia
Investigations -
Chest X-Ray:
02/07/24 - Slightly increased size of the small right pleural effusion with adjacent atelectasis. There is a likely trace left pleural effusion with adjacent atelectasis, similar to prior.
Mild interstitial edema.
02/05/24 -
As above, flip is not particularly well seen on this projection. Tip of the endotracheal tube likely approximately 1.5 cm above the flip, similar to prior. Enteric catheter and left upper extremity PICC in position.
Low lung volumes. Bilateral small pleural effusions and adjacent atelectasis/consolidation.
01/28/24- No acute cardiopulmonary process.
09/14/23- No active cardiopulmonary disease.
Abdomen X ray -
02/01/24- Nasogastric tube is seen with tip in the distal stomach. Study is otherwise stable.
CTA - 01/30/24 -
Scattered mild to moderate calcified plaque of the common carotid arteries, bilaterally. Bilateral bulb calcified plaque and calcified plaque at the ICA origin and proximal internal carotid arteries.
Distal left common carotid artery estimated luminal diameter reduction of 65%. Proximal left ICA estimated luminal diameter reduction of approximately 60%.
Proximal right ICA estimated luminal diameter reduction of approximately 50%.
Bilateral cavernous ICA calcified plaque with estimated luminal diameter reduction of less than 50%.
Normal variant absent right anterior cerebral artery A1 segment, with the A2 segment supplied by a patent anterior to be encasing artery.
Otherwise, no intracranial cerebral artery plaque, stenosis, occlusion, or aneurysm.
The vertebral arteries are patent. Patent basilar artery.
Moderate right and small left pleural effusion. Pulmonary parenchymal consolidation, right greater than left, atelectasis versus pneumonia. Mild superior mediastinal adenopathy.
CT Scan: CHEST 10/18/22- Stable small perifissural pulmonary nodules along the left major fissure. Stable mild small reticulonodular interstitial opacities in the bilateral upper lobes, right greater than left.
CAP 05/04/22- No acute pathology of the chest, abdomen and pelvis identified. Few left upper and lower lobe pulmonary nodules. Bilateral small renal cysts. Bilateral too small to characterize hypodense renal lesions, likely benign cysts. Moderate
fecal material throughout the colon. Mild diverticulosis.
Echo: 12/12/23- Moderately reduced left ventricular systolic function. Estimated left ventricular ejection fraction is 35-40% . Wall motion analysis is limited due to image quality. Mild mitral regurgitation.
Compared to the previous report 12/12/2023 findings are similar no significant change previously estimated ejection fraction 35%
PFT's: 03/29/23 FEV1 1.91 L 77%, FVC 2.57 L 75%, ratio 74. TLC 3.63 L 59%, DLCO 60%--moderately severe restriction, mild diffusion impairment
Anticipated Discharge: Today
Subjective/Interval History
-
Date of Service: February 13, 2024
Addendum 6 AM in the morning patient removed his BiPAP and desatted to 60%, respiratory care team was called in and patient was put back on BiPAP at a maximum setting of 20/8 with moderate respiratory distress with his respiratory rate between
20-30. And sats at 85 to 90%.
Currently patient continues to remain on BiPAP, he feels fatigued.
Objective Data
-
Labs:
Laboratory Results
02/13/24 02/13/24 02/13/24
03:09 05:23 08:00
WBC 15.0 H
Hgb 9.7 L
Hct 32.2 L
Plt Count 302
APTT 72.4 H
HCO3 40.7 H* Pending
Sodium 141
Potassium 3.6
Chloride 94 L
Carbon Dioxide 40 H
BUN 27 H
Creatinine 1.0
Glucose 107 H
Calcium 8.0 L
02/13/24
10:30
WBC
Hgb
Hct
Plt Count
APTT Pending
HCO3
Sodium
Potassium
Chloride
Carbon Dioxide
BUN
Creatinine
Glucose
Calcium
Vital Signs:
Vital Signs
Temp Pulse Resp BP Pulse Ox
97.5 F 103 23 148/61 100
02/13/24 07:46 02/13/24 06:03 02/13/24 06:03 02/13/24 06:03 02/13/24 06:03
I&O
02/12/24 02/13/24 02/14/24
06:59 06:59 06:59
Intake Total 540 / 540 770 / 770
Output Total 2200 / 2200 1325 / 1325
Balance -1660 / -1660 -555 / -555
Review of Systems
-
History Source: Patient
Constitutional: Reports Fatigue; Denies Fever, No Appetite or Chills
EENT: Reports No Symptoms Reported
Respiratory: Reports Trouble Breathing; Denies Cough, Wheezing or Pleurisy
Cardiac: Reports No Symptoms
Abdomen/GI: Reports No Symptoms
Genitourinary: Reports No Symptoms
Musculoskeletal: Reports No Symptoms
Skin: Reports No Symptoms
Neuro: Reports Weakness
Endocrine: Reports No Symptoms
Allergy / Immunology: Reports No Symptoms
Physical Exam
-
General: Appears in Distress (Mild distress) and Other (on BiPAP at 20/8)
HEENT: Moist Mucous Membranes and PERRLA
Respiratory: Decreased Breath Sounds (In the upper lobes, absent breath sounds in bilateral lower lobes.) and Other
Cardiac: Regular Rhythm, S1/S2 and JVD; Negative Murmur, Rub or Gallop
GI: Soft, Nontender, Nondistended and Normal Bowel Sounds
Genito-urinary: No Costovertebral Tender
Musculoskeletal: No Clubbing, No Cyanosis and No Edema
Skin: Warm
Neuro: Awake and No Motor Deficits
Psych: Calm
Data Reviewed
-
Medical Tests (Nuc Med, Echo etc): Image personally visualized and interpreted, Report Reviewed by me and Discussed with Physician
Labs: Labs Reviewed by me and Discussed with Physician
[2024-02-13] MEDS: NOVOLOG FLEXPEN SC (08:08)
[2024-02-13] MEDS: NOVOLOG FLEXPEN-MODERATE RESISTANCE SC (08:09)
--- NOTE | 2024-02-13 08:12 | PTCARENOTE ---
Pt started on heparin gtt for possible R cath in AM. Education given to Pt about medication and heart cath to the best of this RN ability. Through out night Pt becoming more anxious, Shai MEDICAL CHARGE ENTRY SPECIALIST made aware small PO Ativan ordered, see MAY. Medication
did not appear to help Pt. Pt ripping Bipap off saying ' not tonight, I dont want any of this'. Mid flow 15L applied spo2 96%. Pt continuing to take off midflow needing NRB to recoup, spo2 dropping into the 60%. Continued reminders, emotional
support and education for Pt. Pt repeating through out night ' i cant do this, Im done, if i fall a sleep and dont wake up its ok'. Emotional support and education about code status given to Pt, Pt stating ' I do not want that tube again'. Pt
continued to take all oxygen supply off, Pt spo2 dropping into 60% again and coloring appearing to become sabrina, Shai MEDICAL CHARGE ENTRY SPECIALIST and RT at bed side along with ICU. Unfortunately with Pt being hypoxic code status must be reviewed with family to follow Pt
wishes. Pt placed on BiPAP, ABG done and 1:1 at bed side to make sure mask is not taken off. Pt current SPO2 97% on Bipap repeat ABG ordered for morning.
--- NOTE | 2024-02-13 08:13 | CM ---
Addendum entered by Merced Cristobal 02/13/24 10:34:
Discussed with daughter and other options for SNF
Per Ronna liaison they cannot take patient at [facility].
Per nursing cardiac cath cancelled today
PLAN: SNF, pending bed availability when client is medically stable.
Original Note:
Spoke to Ronna at [facility] regarding patient will need air mattress & BIPAP at SNF
Ronna states that the patient needs to bring their own BIPAP machine. They do not provide.
Called Jailene from [facility] and she states they can only provide the machine at home.
She will speak to her boss. May need to find an alternate SNF for patient.
[2024-02-13 08:22] LABS: B.E. 13.2 mmol/L; O2 Saturation % 99.5 % (94-98); PO2 182 mmHg (83-108); pH 7.37 (7.35-7.45)
[2024-02-13 08:24] LABS: PCO2 71 mmHg (35-48)
--- NOTE | 2024-02-13 08:35 | PTCARENOTE ---
Pt trialed on MFNC by RT unsuccessfully. Sats dropping to low 80's. RT at bedside and placed pt back on Bipap. Critcal labs received, Dr. Edward and Dr. Carter notified. Sat's in the low 90's on Bipap.
--- NOTE | 2024-02-13 08:55 | W.PN.PUL3 ---
Today's Communication / Plan
-
Refused PAP again, had to be placed on this AM due to worsening confusion
Repeat ABG showing persistent CO2 retention
He remains full code--discussed with family at bedside his risk for re-intubation, wanted to 'wait and see'
I discussed my concerns with care team as well--[facility] discussions are needed
Assessment
-
Patient is a 73-year-old male with previous history of hypertension, hyperlipidemia, CHF admitted to on 01/28/2024 for nonhealing left heel wound. He notes that he had a blister that was broken up and on his left heel and was prescribed a
topical antibiotic which did not improve his symptoms. Vascular was consulted and due to progressive lethargy, there is concern for ongoing sepsis. Underwent urgent debridement of heel on 01/29/2024 and transferred postoperatively to ICU.
Impression:
Unresponsiveness, acute hypoxic respiratory failure status post intubation 01/30/24 --> extubated 02/05/2024 --> now awake but confused at times
Acute on chronic congestive heart failure exacerbation with reduced ejection fraction --> improved and close to dry weight
Wet gangrene of the left heel s/p excisional debridement through bone with lavage and irrigation 01/29/2024 - wound Cx grew MSSA
Nonhealing left heel wound
Nausea/vomiting and diarrhea with flat plate concerning for ileus vs early SBO (likely the former)
Leukocytosis
RAUL, creatinine 1.9 (Cr baseline: approx. 1.2-1.3) - RAUL improved
Hypernatremia (mild) - resolved
DM type II c/b hyperglycemia (HbA1C: 6.4 on 01/29/2024)
Chronic hypercapnic respiratory failure with metabolic alkalosis
Conditions present prior to admission
History of heart failure, ICM worsened LVEF at 30-35% - TTE 09/11/23
Hypertension
Hyperlipidemia
Morbid obesity, BMI 40.4
Left anterior fascicular block, chronic
History of persistent atrial fibrillation on Eliquis
Coronary disease with history of NM 20+ years ago
History of TIA
Severe sleep apnea, HST AHI 61/78%, failed CPAP 2021
Diabetes
Chronic DJD, back pain
[id number], quit
Chronic cough, COPD/RLD on PFTs, follows at [facility]-Dr Montiel/Chanelle
PAD
Plan
Given patient's chronic hypercapnia likely due to obesity hypoventilation syndrome, he was recommended to continue with BiPAP with sleep
ABG (02/10) shows compensated hypercarbia pH 7.38 and pCO2 62; serum bicarbonate from blood work is 38
Repeat VBG 7 today
Of note, he carries a history of severe obstructive sleep apnea intolerant to CPAP in the past
Recommend outpatient evaluation for sleep disordered breathing given morbid obesity with thick neck
Keep SpO2 >90-94%
Daughter cannot find his old BIPAP device, has requested new set up
CM consult for DME set up
CT head and neck obtained on 01/30/2024 --> bilateral carotid disease noted
Nephrology recs appreciated - trend sCr, I/O and UOP
Troponin peaked at 0.110 on 01/31/2024� cardiology consulted and recommendations appreciated; no need to continue trending troponin
Cardiac history as noted above-Patient follows cardiology ([facility])
Transthoracic echo from 12/12/2023 shows LVEF 35-40% --> echo repeated on 02/04 showed LVEF 35% with severe hypokinesis of the mid�distal
anterior, anteroseptal and apical dahl consistent with a mid LAD infarct; severe LAE
He underwent LHC and RHC on 09/13/2023 showed reduced CI at 1.36 and low PCWP at 13 with slightly elevated PADP at 17mmhg with mild pHTN
(mPAP: 23mmHg)
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
Rate control with goal HR<110bpm
Replete K>4, Mg>2
Unresponsiveness status post intubation 01/29 --> he was extubated on 02/04
CTA chest from 01/30/2024 shows large bilateral pleural effusions with bilateral mosaic attenuation likely due to interstitial edema, without acute PE
CXR on 02/09/2024 still shows evidence of pleural effusions with subsegmental atelectasis
At risk for reintubation if noncompliant with PAP
He is full code
Diet as per ANIMAL ANATOMY TEACHER; continue with aspiration precautions
GI ppx: N/A (continue pepcid as this is a home med)
Aspiration precautions
Non healing would of LLE, on abx for coverage, concern for sepsis --> currently on Ancef + flagyl since 02/03 s/p Unasyn and meropenem
s/p debridement 01/29/24, tissue culture grew MSSA; wound vac
Blood culture negative
Vasc surgery saw pt on 02/01 --> patient is at high risk for limb loss due to extent of heel wound + bone exposure; no acute need for surgical intervention at this point
Given his nausea/vomiting and diarrhea starting on evening of 02/04, ID ordered C-diff (negative) and norovirus stool studies (also negative)
Flat plate done on 02/05 showed concern for ileus versus early SBO (suspect the former) - General Surgery consulted and recommended clear liquid diet; hold off on NGT for now and continue to monitor; repeat flatplate and if shows continued findings
of dilated bowel then would consider CT abdomen/pelvis with oral contrast
Monitor function/IOs
Nephrology consulted and recommendations appreciated
Renally dose all meds/Abx; avoid nephrotoxic agents
Diuresis with lasix 40mg daily
CBC stable
Transfuse if needed to keep Hb >7, platelets >20k
DVT ppx: Eliquis
PT/OT when able
Goal BG 140-180
Diabetic [employer] consulted
Continue basal-bolus SQ insulin for now
Patient has a follow-up with our pulmonary office on 03/26/[address] Candelaria - I advised him to keep this appointment.
Remains full code, I have discussed again with the family regarding his lung conditions/risks, states she wanted to 'wait and see' how things go
Discussed this with care team
Diagnostic Data
CXR 02/05/2024: Nasrin is not particularly well seen on this projection. Tip of the endotracheal tube likely approximately 1.5 cm above the nasrin, similar to prior. Enteric catheter and left upper extremity PICC in position. Low lung volumes.
Bilateral small pleural effusions and adjacent atelectasis/consolidation.
Chest X-Ray: 01/28/24- No acute cardiopulmonary process.
09/14/23- No active cardiopulmonary disease.
Flat Plate 02/06/2024: Increased mild distention of small bowel, ileus versus at least partial distal small bowel obstruction.
CTA Chest 01/30/2024:Markedly limited study, as detailed above, with no findings to suggest bilateral CENTRAL pulmonary embolism. Large right lower lobe consolidation and moderate right pleural effusion.Left lower lobe subsegmental atelectasis and
small left pleural effusion. Groundglass opacity and mild septal thickening suggesting mild to moderate pulmonary edema. Endotracheal tube with tip in trachea above the nasrin. No pneumothorax.
CT Scan: CHEST 10/18/22- Stable small perifissural pulmonary nodules along the left major fissure. Stable mild small reticulonodular interstitial opacities in the bilateral upper lobes, right > left
CAP 05/04/22- No acute pathology of the chest, abdomen and pelvis identified. Few left upper and lower lobe pulmonary nodules. Bilateral small renal cysts. Bilateral too small to characterize hypodense renal lesions, likely benign cysts. Moderate
fecal material throughout the colon. Mild diverticulosis.
Echo: 12/12/23- Moderately reduced left ventricular systolic function. Estimated left ventricular ejection fraction is 35-40% . Wall motion analysis is limited due to image quality. Mild mitral regurgitation. Compared to the previous report
12/12/2023 findings are similar no significant change previously estimated ejection fraction 35%
PFT's: 03/29/23 FEV1 1.91 L 77%, FVC 2.57 L 75%, ratio 74. TLC 3.63 L 59%, DLCO 60%--moderately severe restriction, mild diffusion impairment
Reports and relevant images were personally reviewed.
-----
Total time spent today was 55 minutes for this encounter. Time includes reviewing laboratory test/imaging results, reviewing pertinent medical records, obtaining and reviewing medical history, performing an appropriate exam, ordering medications,
tests and procedures. Time also includes documentation of this encounter, coordinating patient care and communicating with other healthcare professionals. Total time does not include separately billed tests performed on this date of service.
Subjective Data
-
Date of Service:
Date of Service: February 13, 2024
Chief Complaint: Pulmonary Follow Up
Subjective:
Overnight events noted, patient had refused PAP again and had to be placed on this AM
More confusion noted
Family at bedside, not prepared to discuss code status
Objective Data
Data Reviewed
Vital Signs / I&O / Oxygen:
Vital Signs
Temp Pulse Resp BP Pulse Ox
97.5 F 103 23 148/61 100
02/13/24 07:46 02/13/24 06:03 02/13/24 06:03 02/13/24 06:03 02/13/24 06:03
Intake and Output
02/12/24 02/13/24 02/14/24
06:59 06:59 06:59
Intake Total 540 / 540 770 / 770
Output Total 2200 / 2200 1325 / 1325
Balance -1660 / -1660 -555 / -555
SaO2 [CPAP/PSV] 98
SaO2 [A/C] 100
SaO2 100
Nasal Cannula flow liters per 60
minute
Physical Exam
General: Respiratory Distress (mild), Chills (negative), Sweats (negative) and Poor Appetite
HEENT: Normocephalic, Anicteric and Moist Mucous Membranes
Cardiovascular: S1-S2, Regular Rhythm, Rub (negative) and Peripheral Edema (+1 lower extremity pitting edema bilaterally)
Respiratory: Wheeze (negative), Crackles (Bilateral), Rhonchi (negative) and Non-Labored Respirations
GI: Soft, Distended (Abdominal obesity), Non Tender and Normal Bowel Sounds
Neurology: Awake, Alert, No Motor Deficits, Tremors (negative) and Lethargic (confused)
Skin: Warm, Dry and Cyanosis (negative)
Labs/Micro/Reports
Lab Data
02/13/24 03:09
02/13/24 03:09
Laboratory Results
02/12/24 02/13/24 02/13/24
14:30 03:09 05:23
APTT 40.1 H 72.4 H
pH 7.32 L
pCO2 79 H*
pO2 92
HCO3 40.7 H*
O2 Delivery Level 50%
02/13/24
08:06
APTT
pH 7.37
pCO2 71 H*
pO2 182 H
HCO3 41.0 H*
O2 Delivery Level
--- NOTE | 2024-02-13 08:56 | PN.DE.MGMTRT ---
Insulin Management
- -
02/13/2024: Diabetes management Follow up:
73 years old male with multiple comorbidities admitted to the hospital on 01/27 with sepsis due to left foot plantar infected ulcer 2/2 diabetic foot ulcer and peripheral vascular disease S/P left heal debridement. Diabetes consult requested on 02/04
for Hyperglycemia.
PMH: HTN, HLD, CAD, PVD, CHF, COPD and T2DM. Was taking Jardiance 10mg daily, Tresiba 45 units daily, metformin 1000mg BID and NovoLog 7-20 units AC. A1C 6.4%, Cr 1.5, eGFR 48.25. 01/30 started on tube feeds contributing to Hyperglycemia. 02/01 was
initiate on CC glycemic protocol, developed hypoglycemia on 02/03 while on insulin drip. Was transitioned off on 02/03 to SQ insulin- HS Lantus 5 units and moderate corrective only by Dr. Marcano.
Glucose has remained elevated since transition, 241 to 415, requiring high doses 3-9 units of corrective insulin.
Pt unable to participate in discussion, family at bedside.
Per Vascular surgeon, OR tissue cultures of bone-->Staph aureus (confirming osteomyelitis)
02/11 Receiving 20 units lantus @ HS with novolog 7 units AC with low corrective. Glucose range 102 to 132.
02/12 Fasting glucose 116. Patient will not have cardiac cath or OR for foot amputation. His condition has deteriorated. Will stop AC novolog, continue lantus 20 units @ HS with low corrective insulin.
Discussed with patients nurse.
Diabetes History
- -
Type of Diabetes: 2 requiring insulin
Pre-Admission Diabetes Regimen
02/13/24
03:09
Creatinine 1.0
Lab Results
Hemoglobin A1c 6.4 % (4.0-5.6) H 01/29/24 07:22
Insulin Pump Settings
IP Diabetes Regimen
02/12/24 02/12/24 02/12/24
12:32 17:01 22:00
Glucose
POC Glucose 124 H 122 H 132 H
02/13/24 02/13/24
03:09 05:12
Glucose 107 H
POC Glucose 116 H
Meal type: Lunch
Meal type: Breakfast
Amount consumed: Patient refused
Amount consumed: 100%
Patient Education
--- NOTE | 2024-02-13 08:57 | W.PN.UPDATE ---
Update Note
Progress Note Update
I saw and evaluated the patient. I reviewed the resident�s note and agree with findings and plan as documented in the resident�s note.
Denies CP/SOB/abd pain.
Gen: appears mild-moderately SOB, NCAT
Neck: supple.
CV: tachy, irreg/irreg, +S1/S2, no m/r/g.
Resp: CTAB anteriorly, no rales, wheezes, or rhonchi.
Abd: +BS, soft, NT, ND
Skin: No rashes.
Neuro: CN 2-12 intact, agitated/confused, spontaneously moves UEs
Psych: slightly agitated
Acute on chronic hypoxemic respiratory failure requiring intubation/mechanical ventilator:
-due to acute on chronic HFrEF with known EF of 35%, NYHA class III-IV
-now extubated
-note, at one point was on IVFs for hypernatremia. Then pt was diuresed with IV Lasix which continues (total to 80mg IV Lasix on 02/12/24).
-overnight 02/07-02/08 patient was noncompliant with NC O2 (removed NC O2) and desaturated to the 40s. He was placed on BiPAP but was unable to tolerate. Was weaned to 15L midflow.
-02/13/24AM, pt noncompliant with BIPAP and desaturated to 60s. Then agreed to be compliant with BIPAP and ABG improved (pH and PCO2).
-cont BIPAP for now 23/12. IR to do chest U/S to assess for Tx thoracentesis. Dry weight likely lower than prior and the current driving force of the patient's respiratory failure is acute on chronic HFrEF at this time. Cont Lasix 40mg IV BID.
-asked pulm to see on the 'sooner side.'
-case discussed with Dr. Mcintosh, no benefit to RHC at this moment.
-case discussed with Dr. Ennis, no benefit for Diamox at this time as pH 7.37.
-currently NOT MEDICALLY OPTIMIZED for OR
Severe sepsis:
-due to L foot plantar ulcer with osteomyelitis
-Family initially opted for salvage of the extremity to avoid amputation, now plans for amputation this week
-cont Ancef/Flagyl as per ID
-cont heparin gtt preop.
Other problems:
Primary respiratory acidosis with secondary metabolic alkalosis
Permanent atrial fibrillation: cont BB/Eliquis
RAUL on CKD3b, resolved
DM2: a1c 6.4%, SSI/accuchecks
Hospital acquired delirium, supportive care
Obesity due to excess calories
DNR/Eliquis
I had a lengthy discussion with the patient's and daughter at bedside. I explained that due to the patient's overwhelming burden of pathology including, but not limited to, his lack of stability to go to the OR for left lower extremity
amputation for source control of infection as well as acute on chronic heart failure with reduced ejection fraction and acute hypoxemic and hypercapnic respiratory failure that the patient's prognosis is bleak. At this time the patient's CODE
STATUS is being changed to DNR as per the wishes of the patient's and daughter. We will continue to observe the patient over the next 3 to 6 hours before making a decision on comfort care/hospice.
Total time spent on today's encounter was 60 minutes which included time spent in counseling the patient/family regarding diagnosis and treatment plan as listed above, goals of care, and symptom management. Case was discussed with nursing staff,
specialists, and care coordinators/case management. All labs and imaging personally reviewed by me. Remainder the time spent in detailed review of previous records, lab data, imaging, and other medical provider documentation.
[2024-02-13] MEDS: FLAGYL PO (09:19)
[2024-02-13] MEDS: LOW STRENGTH ASPIRIN TUBE (09:19)
[2024-02-13] MEDS: TOPROL XL PO (09:20)
[2024-02-13] MEDS: DESENEX/MITRAZOL/ZEASORB 1 APPLIC TOPICAL ×2 (09:30→21:29)
[2024-02-13] MEDS: LASIX 40 MG IV ×2 (09:30→18:00)
--- NOTE | 2024-02-13 09:32 | W.PN.ID1 ---
Date of Service
Date of Service: February 13, 2024
Today's Communication
continue current antibiotics
Assessment / Plan
Osteomyelitis of the L heel
Left heel ulcer with wet gangrene s/p debridement to bone
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
RAUL on CKD
Class II obesity
- 01/28 tissue culture with MSSA, no anaerobic culture done
- c/w cefazolin and metronidazole
- PICC removal before dc
- planned for amputation of foot when medically optimized, then would stop antibiotics
����������������������������������������������������������
Chief Complaint
-: Other (calceneal osteomyelitis, L foot)
Subjective / Review of Systems
afebrile, mild hypothermia overnight
bp stable
CXR: interstitial edema
still with difficulty tolerating bipap
for right heart cath today
Vital Signs / Physical Exam
Vital Signs
Vital Signs
Temp Pulse Resp BP Pulse Ox
97.5 F 103 23 148/61 100
02/13/24 07:46 02/13/24 06:03 02/13/24 06:03 02/13/24 06:03 02/13/24 06:03
Physical Exam
Constitutional: No Acute Distress
Cardiovascular: Regular Rate and S1/S2; Negative Murmur or Rub
Pulmonary: Clear and Symmetric; Negative Wheezes or Rales
Gastrointestinal: Soft, Non Tender, Non Distended and Normal Bowel Sounds
Skin: Warm and Dry; Negative Rash or Jaundice
Objective Data
Lab Data
Lab Results
02/13/24 03:09
02/13/24 03:09
ESR 95 mm/hour (0-20) H 01/28/24 07:14
PT 27.4 Sec (11.4-14.6) H 01/31/24 08:53
INR 2.50 01/31/24 08:53
APTT 72.4 Sec (23.4-35.0) H 02/13/24 03:09
Estimated Creat Clear 73 ml/min 02/13/24 03:09
Lactic Acid 1.1 mmol/L (0.7-2.0) 01/31/24 04:35
Total Bilirubin 0.5 mg/dl (0.2-1.3) 02/07/24 04:41
AST 34 U/L (17-59) 02/07/24 04:41
ALT 15 U/L (0-50) 02/07/24 04:41
Alkaline Phosphatase 160 U/L (38-126) H 02/07/24 04:41
C-Reactive Protein > 270.00 mg/L (0.0-10.00) H 01/28/24 07:41
Most recent labs reviewed.
Micro Results:
02/06/24 10:25 C. difficile GDH Antigen & Toxins - Final
Feces/Stool Negative for toxigenic C.difficile
- Final
Negative for Norovirus GI and GII.
01/31/24 12:12 Blood Culture - Final
Blood/Venous No Growth - Final Report
01/31/24 11:15 Blood Culture - Final
Blood/Venous No Growth - Final Report
01/28/24 12:25 Blood Culture - Final
Blood/Venous No Growth - Final Report
01/29/24 15:30 Tissue Culture - Final
Foot - Left S aureus-Methicillin Sensitive
Gram Stain - Final
01/28/24 14:04 MRSA Screen - Final
Nose No Methicillin Resistant Staphylococcus aureus isolated.
--- NOTE | 2024-02-13 09:42 | W.PN.CD ---
Today's Communication / Plan
-
IV diuresis
Consider Diamox
Pulm input
Evaluate for thoracentesis
I do not favor a RHC at this time
Impression / Plan
-
Impression/Plan: 73 y/o male (known to Dr. Alvarez, his primary Agency Owner) with HTN, HLD, IDDM, COPD, permanent atrial fibrillation (on apixaban), CAD with ICMO, PAD with prior LSFA endovascular intervention, and obesity admitted with
non-healing left foot ulcer/wet gangrene complicated by sepsis now s/p left heal debridement, subsequently complicated by VDRF and hypotension requiring pressor support.
HFrEF, LVEF 35% 02/2024
- goal weight has been felt to be 105.7 based on RHC performed 09/2023; Dry weight likely lower now with nutritional change
- Lasix 40 IV BID
- Check for enough pleural effusion to tap
- Continue HF beta misha
- Later consider MRA
- Add back his SGLT2-I and lisinopril prior to hospital discharge
? lung disease based on CO2 retention
Contracture alkalosis
- Consider Diamox if pulmonary OK with it
Left heal wet gangrene/septic shock/ osteomyelitis
-Pre op assessment
- Patient will likely require amputation.
- Increased risk due to recent heart failure, cardiomyopathy, CAD and afib.
- Considering the importance of surgery with sepsis and osteo, it is reasonable to proceed with surgery this admission
- OK to hold Eliquis 48 hours pre op.
Ischemic cardiomyopathy
-Chronic.
-LVEF = 35%.
-GDMT: will hold GDMT perioperative pending vascular surgery and reintroduce post-operatively
Nonsustained VT
- 13 seconds over the weekend
- Increase BB
- Later can consider primary prevention ICD
Permanent Atrial fibrillation
Coronary artery disease, old [place], chronically occluded LAD.
RAUL resolved
Anemia
Subjective:
No CP or dyspnea
DATA:
Echo 02/05/2024: Left ventricular ejection fraction is 35%; no significant valvular disease.
Cath 09/13/2023:
1. Right dominant circulation with a 50% lesion in the distal third of the RPDA, a diffusely diseased, small first obtuse marginal, a 30% lesion in the mid ramus, a 40% lesion in the origin of the first diagonal and a chronic total occlusion of the
mid LAD (known since cardiac catheterization in 1999).
2. Normal filling pressures (LVEDP = 10 mmHg, PCWP = 13 mmHg at 105.7 kg).
3. Severely impaired cardiac function (cardiac index = 1.36 L/min/m�, a VO2 difference 8.63 volume percent).
4. Mild precapillary pulmonary hypertension (mean PA pressure = 23 mmHg, PVR = 3.44 Moser units).
5. Significantly elevated peripheral vascular resistance (1787 dynes*seconds*cm^5).
Physical Exam
Vital Signs/Labs
Vital Signs
Temp Pulse Resp BP Pulse Ox
97.5 F 103 23 148/61 100
02/13/24 07:46 02/13/24 06:03 02/13/24 06:03 02/13/24 06:03 02/13/24 06:03
02/12/24 02/13/24 02/14/24
06:59 06:59 06:59
Actual Weight 106.3 kg
02/13/24 03:09
02/13/24 03:09
PT 27.4 Sec (11.4-14.6) H 01/31/24 08:53
INR 2.50 01/31/24 08:53
APTT 72.4 Sec (23.4-35.0) H 02/13/24 03:09
Magnesium 1.8 mg/dl (1.6-2.3) 02/13/24 03:09
Triglycerides 150 mg/dl (10-149) H 02/05/24 03:31
01/31/24 02/07/24 02/11/24
09:09 04:41 03:56
Kqb-G-Hoajejibddt Pept [id number]
Data Reviewed
-
Date of Service: February 13, 2024
X-Ray/CT/US/MRI/NUC/PET: Image Personally Visualized and interpreted (I reviewed imaging studies with radiology and heart failure seems like the correct radiologic assessment and worth trying more diuresis from my perspective)
[2024-02-13 11:00] LABS: APTT 80.2 Sec (23.4-35.0)
--- NOTE | 2024-02-13 11:34 | W.PN.NEPH.PH ---
Today's Communication / Plan
-
maintain IV lasix 40mg BID for CHF
Assessment/Plan
-
Impression:
RAUL
CKD 3b (1.6)
Metabolic acidosis
Left plantar foot ulceration with gangrenous changes s/p debridement
Ischemic cardiomyopathy EF 30%
History of hypertension
History of diabetes
Profound peripheral vascular disease
Diabetes
Plan:
cr now better than baseline 1.1 and non oliguric
Significant met alkalosis and hypercarbia noted on ABG
CXR notes CHF
40 mg IV Lasix BID given again today given review of chest x-ray
Review of blood gas shows persistent hypercapnic
remains on high flow O2, may benefit RHC
though I think this is not all from hypervolemia
wts have fluctuated, not accurate
BP stable on low dose BB
met alkalosis monitor
Holding Jardiance, metformin, spironolactone and KARL inhibitor at this time
abx per ID
d/w pt
d/w primary
-
-
Date of Service: February 13, 2024
CC / HPI / ROS
-
Chief Complaint:
RAUL with CKD
History of Present Illness:
cr down to 1.0, sodium better 141
non oliguric 1.7lit
Hemodynamically stable
ABG reviewed notes acidemia with prominent hypercapnia and associated metabolic compensation
P.o. intake limited
Review of Systems:
extubated 02/04
still on high flow O2
wt down
no cp at rest
Nonoliguric
Labs
-
Labs:
WBC 15.0 10^3/uL (4.8-10.8) H 02/13/24 03:09
RBC 3.76 10^6/uL (4.70-6.10) L 02/13/24 03:09
Hgb 9.7 g/dL (13.0-18.0) L 02/13/24 03:09
Hct 32.2 % (39.0-52.0) L 02/13/24 03:09
Plt Count 302 10^3/uL (130-400) 02/13/24 03:09
Sodium 141 mmol/L (135-145) 02/13/24 03:09
Potassium 3.6 mmol/L (3.5-5.1) 02/13/24 03:09
Chloride 94 mmol/L (98-107) L 02/13/24 03:09
Carbon Dioxide 40 mmol/L (22-30) H 02/13/24 03:09
BUN 27 mg/dl (9-20) H 02/13/24 03:09
Creatinine 1.0 mg/dL (0.7-1.3) 02/13/24 03:09
eGFR > 60.00 02/13/24 03:09
Glucose 107 mg/dl (70-99) H 02/13/24 03:09
Calcium 8.0 mg/dl (8.4-10.2) L 02/13/24 03:09
Phosphorus 3.7 mg/dl (2.5-4.5) 02/07/24 04:41
Pta-O-Xfqcfeamcbr Pept 7400 pg/ml 02/11/24 03:56
Albumin 2.7 g/dl (3.5-5.0) L 02/07/24 04:41
Physical Exam
-
Vital Signs:
Vital Signs
Temp Pulse Resp BP Pulse Ox
97.5 F 87 22 129/64 97
02/13/24 07:46 02/13/24 10:00 02/13/24 10:00 02/13/24 10:00 02/13/24 10:00
Cardiovascular:: Regular rate and rhythm
Respiratory:: Bilateral: Coarse and Bilateral: Wheeze
Lung Excursion:: Abnormal
Abdomen:: Nontender and Soft
Extremity Edema:: None: Bilateral:
Street Catheter: No
[2024-02-13 11:46] LABS: Glucose - Point of Care 108 mg/dl (70-99)
--- NOTE | 2024-02-13 11:58 | PTCARENOTE ---
Order received for pt to be DNR. Purple bracelet applied.
--- NOTE | 2024-02-13 14:41 | PTCARENOTE ---
Pt for chest US, d/w RT, pt is not stable enough for travel at this time. Currently on 15L MFNC and desats to the 70's if O2 is displaced briefly from nostrils. US will come to bedside, Dr. Rios and Dr. Carter notified.
[2024-02-13 16:54] LABS: Glucose - Point of Care 74 mg/dl (70-99)
[2024-02-13 17:03] LABS: APTT 84.7 Sec (23.4-35.0)
[2024-02-13] MEDS: NOVOLOG FLEXPEN-LOW RESISTANCE SC (17:36)
--- NOTE | 2024-02-13 17:50 | PTCARENOTE ---
Pt tolerated break from bipap on 15L MFJASMEET, family at bedside. Per family, pt becoming more confused this evening. RT at bedside to place bipap on pt. 1:1 present.
[2024-02-13] MEDS: LIPITOR PO (18:00)
[2024-02-13] MEDS: HEPARIN 25000 UNITS/250 ML IV (20:24)
[2024-02-13] MEDS: PEPCID 20 MG PO (21:28)
[2024-02-13] MEDS: FLAGYL 500 MG PO (21:28)
[2024-02-13] MEDS: LANTUS 0.2 UNITS SC (21:38)
[2024-02-13 21:48] LABS: Glucose - Point of Care 188 mg/dl (70-99)
[2024-02-14] VITALS (18 sets, daily range): BP systolic 89–139; BP diastolic 25–84; PULSE 3–95; O2SAT 93–96; BMI 37.2
[2024-02-14] MEDS: ANCEF 10 IV ×3 (02:02→17:05)
[2024-02-14] MEDS: TYLENOL 650 MG PO ×3 (02:03→17:06)
--- NOTE | 2024-02-14 03:39 | PTCARENOTE ---
Pt complying with BiPAP through out night, spo2 in 90's%. 1:1 outside room for monitoring and reminders not to move mask. Pt remains more alert with minimal confusion. Pt not getting much rest over night, Pt presenting more with anxiety and asking
repetitive Questions. Education and emotional support given as needed. Heparin gtt continued at 1100U/hr as of last PTT.
[2024-02-14 05:14] LABS: Hematocrit 29.4 % (39.0-52.0); Mean Corp Hgb Conc. 30.6 g/dL (33.0-37.0); Mean Corpuscular Hgb 26.4 pg (27.0-31.0); Mean Corpuscular Volume 86.2 fL (80.0-94.0); Mean Platelet Volume 10.6 fL (7.4-10.4); Platelet Count 270 10^3/uL (130-400); Red Blood Cell Count 3.41 10^6/uL (4.70-6.10); Red Cell Dist. Width 20.7 % (11.5-14.5)
[2024-02-14 05:26] LABS: APTT 100.5 Sec (23.4-35.0)
[2024-02-14 06:44] LABS: Blood Urea Nitrogen 30 mg/dl (9-20); Calcium 7.8 mg/dl (8.4-10.2); Chloride 94 mmol/L (98-107); Estimated Creatinine Clearance 72 ml/min; Glucose 129 mg/dl (70-99); Potassium 3.6 mmol/L (3.5-5.1); Sodium 140 mmol/L (135-145); eGFR > 60.00
[2024-02-14 06:59] LABS: Carbon Dioxide 39 mmol/L (22-30)
--- NOTE | 2024-02-14 07:46 | PN.DE.MGMTRT ---
Insulin Management
- -
02/14/2024: Diabetes management Follow up:
73 years old male with multiple comorbidities admitted to the hospital on 01/27 with sepsis due to left foot plantar infected ulcer 2/2 diabetic foot ulcer and peripheral vascular disease S/P left heal debridement. Diabetes consult requested on 02/04
for Hyperglycemia.
PMH: HTN, HLD, CAD, PVD, CHF, COPD and T2DM. Was taking Jardiance 10mg daily, Tresiba 45 units daily, metformin 1000mg BID and NovoLog 7-20 units AC. A1C 6.4%, Cr 1.5, eGFR 48.25. 01/30 started on tube feeds contributing to Hyperglycemia. 02/01 was
initiate on CC glycemic protocol, developed hypoglycemia on 02/03 while on insulin drip. Was transitioned off on 02/03 to SQ insulin- HS Lantus 5 units and moderate corrective only by Dr. Marcano.
Glucose has remained elevated since transition, 241 to 415, requiring high doses 3-9 units of corrective insulin.
Pt unable to participate in discussion, family at bedside.
Per Vascular surgeon, OR tissue cultures of bone-->Staph aureus (confirming osteomyelitis)
02/12 Receiving 20 units lantus @ HS novolog 7 units AC discontinued, low corrective Q 6 hours. Glucose range 74 to 188.
02/13 Fasting glucose 129. Patient will not have cardiac cath or OR for foot amputation. His condition has deteriorated. Will continue lantus 20 units @ HS with low corrective insulin Q 6 hours.
Discussed with patients nurse.
Diabetes History
- -
Type of Diabetes: 2 requiring insulin
Pre-Admission Diabetes Regimen
02/14/24
04:58
Creatinine 1.0
Lab Results
Hemoglobin A1c 6.4 % (4.0-5.6) H 01/29/24 07:22
Insulin Pump Settings
IP Diabetes Regimen
02/13/24 02/13/24 02/13/24
11:36 16:43 21:36
Glucose
POC Glucose 108 H 74 188 H
02/14/24
04:58
Glucose 129 H
POC Glucose
Patient Education
[2024-02-14 07:48] LABS: Glucose - Point of Care 98 mg/dl (70-99)
--- NOTE | 2024-02-14 08:02 | W.PN.CD ---
Today's Communication / Plan
-
Continue IV diuresis BID
Consider Diamox if HCO3 climbs further
Pulm involved
U/S 02/13/2024 did not favor thoracentesis (small-mod bilat effusions)
I do not favor a RHC at this time
Impression / Plan
-
Impression/Plan: 73 y/o male (known to Dr. Alvarez, his primary Manager Recovery) with HTN, HLD, IDDM, COPD, permanent atrial fibrillation (on apixaban), CAD with ICMO, PAD with prior FA endovascular intervention, and obesity admitted with
non-healing left foot ulcer/wet gangrene complicated by sepsis now s/p left heal debridement, subsequently complicated by VDRF and hypotension requiring pressor support.
HFrEF, LVEF 35% 02/2024
- goal weight has been felt to be 105.7 based on RHC performed 09/2023; Dry weight is now lower with nutritional change
- Lasix 40 IV BID
- U/S 02/13/2024 did not favor thoracentesis (small-mod bilat effusions
- Continue HF beta misha
- Later consider MRA
- Add back his SGLT2-I and lisinopril probably prior to hospital discharge
Significant complex lung disease
- Significant CO2 retention
- Pulm involved
Contracture alkalosis
- May need Diamox
Left heal wet gangrene/septic shock/ osteomyelitis
-Pre op assessment
- Patient will likely require amputation.
- Increased risk due to recent heart failure, cardiomyopathy, CAD and afib.
- Considering the importance of surgery with sepsis and osteo, it is reasonable to proceed with surgery this admission
- OK to hold Eliquis 48 hours pre op.
Ischemic cardiomyopathy
-Chronic.
-LVEF = 35%.
-GDMT: will hold GDMT perioperative pending vascular surgery and reintroduce post-operatively
Nonsustained VT
- 13 seconds over the weekend
- Increase BB
- Later can consider primary prevention ICD
Permanent Atrial fibrillation
Coronary artery disease, old [place], chronically occluded LAD.
RAUL resolved
Anemia
Subjective:
No CP or dyspnea
DATA:
Echo 02/05/2024: Left ventricular ejection fraction is 35%; no significant valvular disease.
Cath 09/13/2023:
1. Right dominant circulation with a 50% lesion in the distal third of the RPDA, a diffusely diseased, small first obtuse marginal, a 30% lesion in the mid ramus, a 40% lesion in the origin of the first diagonal and a chronic total occlusion of the
mid LAD (known since cardiac catheterization in 1999).
2. Normal filling pressures (LVEDP = 10 mmHg, PCWP = 13 mmHg at 105.7 kg).
3. Severely impaired cardiac function (cardiac index = 1.36 L/min/m�, a VO2 difference 8.63 volume percent).
4. Mild precapillary pulmonary hypertension (mean PA pressure = 23 mmHg, PVR = 3.44 Moser units).
5. Significantly elevated peripheral vascular resistance (1787 dynes*seconds*cm^5).
Physical Exam
Vital Signs/Labs
Vital Signs
Temp Pulse Resp BP Pulse Ox
96.1 F L 84 24 108/74 96
02/14/24 04:22 02/14/24 06:00 02/14/24 06:00 02/14/24 06:00 02/14/24 04:00
02/13/24 02/14/24 02/15/24
06:59 06:59 06:59
Actual Weight 104.5 kg
02/14/24 04:58
02/14/24 04:58
PT 27.4 Sec (11.4-14.6) H 01/31/24 08:53
INR 2.50 01/31/24 08:53
APTT 100.5 Sec (23.4-35.0) H 02/14/24 04:58
Magnesium 1.8 mg/dl (1.6-2.3) 02/13/24 03:09
Triglycerides 150 mg/dl (10-149) H 02/05/24 03:31
01/31/24 02/07/24 02/11/24
09:09 04:41 03:56
Blb-R-Doczwvcfzev Pept [id number]
Physical Exam
Constitutional: No acute distress
Cardiovascular: Rhythm/rate is irregular and S1S2 is normal
Respiratory: Respiratory effort normal and Lungs clear to auscul. (decreased at bases)
GI: Soft and Distention absent
Neuro/Psych: Alert
Data Reviewed
-
Date of Service: February 14, 2024
[2024-02-14] MEDS: LASIX 40 MG IV ×2 (08:40→17:06)
[2024-02-14] MEDS: LOW STRENGTH ASPIRIN 81 MG TUBE (08:41)
[2024-02-14] MEDS: FLAGYL 500 MG PO ×2 (08:41→21:36)
[2024-02-14] MEDS: DESENEX/MITRAZOL/ZEASORB 1 APPLIC TOPICAL ×2 (08:42→21:36)
[2024-02-14] MEDS: NOVOLOG FLEXPEN-LOW RESISTANCE SC (08:42)
[2024-02-14] MEDS: TOPROL XL 50 MG PO (08:42)
--- NOTE | 2024-02-14 09:47 | W.PN.HOSP.TC ---
Today's Communication/Plan
-
Continue diuresis and acetazolamide
Continue BiPAP therapy per respiratory
Add incentive spirometry
Continue antibiotics per ID
Assessment / Plan
Assessment / Plan
ssessment -73 Yo M with PMHx significant for peripheral vascular disease, CKD stage IIIb, CAD, permanent A-fib, TIA, hypertension, hyperlipidemia, insulin-dependent type 2 diabetes mellitus, with multiple comorbidities presented to the hospital with
sepsis due to left foot plantar infected diabetic foot ulcer with underlying PAD.
Plan -
Severe sepsis-
Secondary to diabetic left plantar foot ulcer with underlying peripheral vascular disease.
Status post sharp excisional debridement by vascular surgery team on 01/28, lactic acid levels on 01/29 at 5.4.
Left heel bone biopsy growing MSSA, patient was initially started on IV cefepime and vancomycin then transition to meropenem and vancomycin and then to Unasyn.
ID on board, appreciate inputs.
Patient is currently on cefazolin and metronidazole.
BKA of his left foot by vascular team scheduled tentatively for tomorrow. Currently patient's breathing status not stable. procedure held.
Ventilator dependent respiratory failure- extubated on 02/05/24.
Acute on chronic hypoxic respiratory failure.
Patient is back on BiPAP. Although there is some pulmonary component to it, suspect BiPAP and oxygen requirement secondary to heart failure.
CT x-ray evident for pulmonary edema. Chest x-ray showed worsening pleural effusion and pulmonary edema.
Also history of PHTN, untreated, precapillary likely secondary to ERICK.
Acute on Chronic HFrEF -
Likely secondary to sepsis in the setting of pre-existing CAD and heart failure.
Exacerbated yesterday after initiation of IVF for his hypernatremia. On
X ray showed increased pleural effusion and mild interstitial edema.
Gentle diuresis today. Reassess him on day to day basis for diuresis based on his volume status.
Cardiology on board. Appreciate input
Most recent echocardiogram-09/26-EF 30 to 35%.
Continue GDMT as tolerated. Cardiology added metoprolol.
Patient had 13 seconds of NSVT and metoprolol dose bumped to 50 on 02/10/24.
Patient's dry weight has likely changed given his Chronic illness and intubation. Suspect dry weight is much lower than 105kgs. IV Lasix twice daily. Added Diamox.
CO2 levels improving.
Trend daily weights, I's and O's.
Continue to trend renal function
Shock-01/29.
Unclear etiology whether septic versus cardiogenic.
CT PE negative for pulmonary embolism, however there is some evidence for mild to moderate pulmonary edema.
[place] [address] [place] admission, reduced to 6210 on 02/07/24. His repeat proBNP levels on 02/11/2024 at 7400. Elevated lactic acid levels at 5.4 upon admission.
Patient is off of sedatives and pressors -for more than a week now.
Partial small bowel obstruction versus ileus.
Surgery on board, recommended to continue advancing diet as tolerated and monitor for symptoms.
Resolved.
RAUL on CKD stage 3b
likely secondary to cardiorenal syndrome.
Cr down to 1.5, baseline is at 1.2 . Currently at 1.3
Continue to trends weights, I and O, and
Patient is currently at 104.5 kgs. gentle diuresis per nephro.
Currently patient is alkalotic and hypercarbic.
Avoid nephrotoxic agents. Discontinued bicarbonate yesterday.
Renal on board, appreciate inputs.
Peripheral vascular disease-
No plan for staged revascularization procedure due to clinical instability.
Patient is currently on Eliquis.
Status post left lower extremity arteriogram and stent to SFA, angioplasty to PT per vascular surgery in 09/26.
Permanent A-fib
On metoprolol.
[id number] score-Transitioned back to Eliquis from heparin.
Questionable PVCs on telemetry in the a.m. today. Obtain an EKG.
Hypernatremia -
likely secondary to hemoconcentration from Diuresis.
Speech eval - NPO after intubation yesterday.
Recommended regular diet today.
recommend adequate oral hydratipon.
Discontinue tube feeds.
Reassess for hypernatremia tomorrow.
Leukocytosis-
White blood cell count trending up again.
Suspect secondary to partial small bowel obstruction, not considered as inadequate response to antibiotics.
ID on board, appreciate inputs.
Type 2 diabetes mellitus-
HbA1c at 6.4.
Hecotshby-Zhhnhwu-72 units daily. Developed hypoglycemia on Tresiba - 02/07/24, diabetes nurse practitioner consulted for diabetes education and management.
Tube feeds discontinued. Overnight insulin requirement was low.
Continue to monitor glucose with tight glycemic control.
Elevated troponins
Type II demand ischemia
Troponins trended down on 02/02.
Cardiology on board.
Previous history of coronary artery disease.
/Hospital acquired delirium
Delrium precautions
Reorientation
DUe to resp status would avoid melatonin and other sedative
DVT prophylaxis-on Eliquis
CODE STATUS DNR
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
CAD-continue his home meds-aspirin.
Hypertension-continue lisinopril.
Hyperlipidemia-continue Lipitor.
TIA
Asthma
Morbid obesity
Hypoglycemia
Investigations -
Chest X-Ray:
02/07/24 - Slightly increased size of the small right pleural effusion with adjacent atelectasis. There is a likely trace left pleural effusion with adjacent atelectasis, similar to prior.
Mild interstitial edema.
02/05/24 -
As above, flip is not particularly well seen on this projection. Tip of the endotracheal tube likely approximately 1.5 cm above the flip, similar to prior. Enteric catheter and left upper extremity PICC in position.
Low lung volumes. Bilateral small pleural effusions and adjacent atelectasis/consolidation.
01/28/24- No acute cardiopulmonary process.
09/14/23- No active cardiopulmonary disease.
Abdomen X ray -
02/01/24- Nasogastric tube is seen with tip in the distal stomach. Study is otherwise stable.
CTA - 01/30/24 -
Scattered mild to moderate calcified plaque of the common carotid arteries, bilaterally. Bilateral bulb calcified plaque and calcified plaque at the ICA origin and proximal internal carotid arteries.
Distal left common carotid artery estimated luminal diameter reduction of 65%. Proximal left ICA estimated luminal diameter reduction of approximately 60%.
Proximal right ICA estimated luminal diameter reduction of approximately 50%.
Bilateral cavernous ICA calcified plaque with estimated luminal diameter reduction of less than 50%.
Normal variant absent right anterior cerebral artery A1 segment, with the A2 segment supplied by a patent anterior to be encasing artery.
Otherwise, no intracranial cerebral artery plaque, stenosis, occlusion, or aneurysm.
The vertebral arteries are patent. Patent basilar artery.
Moderate right and small left pleural effusion. Pulmonary parenchymal consolidation, right greater than left, atelectasis versus pneumonia. Mild superior mediastinal adenopathy.
CT Scan: CHEST 10/18/22- Stable small perifissural pulmonary nodules along the left major fissure. Stable mild small reticulonodular interstitial opacities in the bilateral upper lobes, right greater than left.
CAP 05/04/22- No acute pathology of the chest, abdomen and pelvis identified. Few left upper and lower lobe pulmonary nodules. Bilateral small renal cysts. Bilateral too small to characterize hypodense renal lesions, likely benign cysts. Moderate
fecal material throughout the colon. Mild diverticulosis.
Echo: 12/12/23- Moderately reduced left ventricular systolic function. Estimated left ventricular ejection fraction is 35-40% . Wall motion analysis is limited due to image quality. Mild mitral regurgitation.
Compared to the previous report 12/12/2023 findings are similar no significant change previously estimated ejection fraction 35%
PFT's: 03/29/23 FEV1 1.91 L 77%, FVC 2.57 L 75%, ratio 74. TLC 3.63 L 59%, DLCO 60%--moderately severe restriction, mild diffusion impairment
Anticipated Discharge: > 48 hours
Subjective/Interval History
-
Date of Service: February 14, 2024
No complaints overnight.
Objective Data
-
Labs:
Laboratory Results
02/14/24
04:58
WBC 10.0
Hgb 9.0 L
Hct 29.4 L
Plt Count 270
APTT 100.5 H
Sodium 140
Potassium 3.6
Chloride 94 L
Carbon Dioxide 39 H
BUN 30 H
Creatinine 1.0
Glucose 129 H
Calcium 7.8 L
Vital Signs:
Vital Signs
Temp Pulse Resp BP Pulse Ox
96.1 F L 84 24 108/74 91
02/14/24 07:50 02/14/24 06:00 02/14/24 06:00 02/14/24 06:00 02/14/24 08:14
I&O
02/13/24 02/14/24 02/15/24
06:59 06:59 06:59
Intake Total 770 / 770 672 / 672 240 / 240
Output Total 1325 / 1325 625 / 625
Balance -555 / -555 47 / 47 240 / 240
Review of Systems
-
History Source: Patient
Constitutional: Reports Fatigue; Denies Fever or Chills
Respiratory: Reports Trouble Breathing and Wheezing; Denies Cough or Pleurisy
Cardiac: Reports Orthopnea; Denies Chest Pain, Diaphoresis, Palpitations, Syncope or PND
Breast: Reports No Symptoms
Genitourinary: Reports No Symptoms
Musculoskeletal: Reports No Symptoms
Skin: Reports No Symptoms
Neuro: Reports No Symptoms
Endocrine: Reports No Symptoms
Hematologic / Lymphatic: Reports No Symptoms
Allergy / Immunology: Reports No Symptoms
Physical Exam
-
General: Respiratory Distress (mild on 15l mid flow nasal cannula)
HEENT: Moist Mucous Membranes
Respiratory: Crackles and Decreased Breath Sounds (in b/l lower lobes); Negative Wheezes, Rales or Rhonchi
Cardiac: Regular Rhythm, S1/S2 and Tachycardic; Negative Murmur, Rub or Gallop
GI: Soft, Nontender, Nondistended and Normal Bowel Sounds
Musculoskeletal: No Clubbing, No Cyanosis and No Edema
Skin: Warm
Neuro: Awake and No Motor Deficits
Psych: Calm
Data Reviewed
-
Labs: Labs Reviewed by me, Discussed with Physician and Discussed with Nurse
--- NOTE | 2024-02-14 09:53 | W.PN.ID1 ---
Date of Service
Date of Service: February 14, 2024
Today's Communication
- c/w cefazolin and metronidazole
- PICC removal before dc
- planned for amputation of foot when medically optimized, then would stop antibiotics
Assessment / Plan
Osteomyelitis of the L heel
Left heel ulcer with wet gangrene s/p debridement to bone
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
RAUL on CKD
Class II obesity
- 01/28 tissue culture with MSSA, no anaerobic culture done
- c/w cefazolin and metronidazole
- PICC removal before dc
- planned for amputation of foot when medically optimized, then would stop antibiotics
����������������������������������������������������������
Chief Complaint
-: Other (calceneal osteomyelitis, L foot)
Subjective / Review of Systems
intermittent hypothermia
bp overall stable
was on bipap through the evening
much more alert today
Vital Signs / Physical Exam
Vital Signs
Vital Signs
Temp Pulse Resp BP Pulse Ox
96.1 F L 84 24 108/74 91
02/14/24 07:50 02/14/24 06:00 02/14/24 06:00 02/14/24 06:00 02/14/24 08:14
Physical Exam
Constitutional: Acutely Ill and Chronically Ill
Cardiovascular: Regular Rate and S1/S2; Negative Murmur or Rub
Pulmonary: Clear and Symmetric; Negative Wheezes or Rales
Gastrointestinal: Soft, Non Tender, Non Distended and Normal Bowel Sounds
Skin: Warm and Dry; Negative Rash or Jaundice
Wound: Other (surgical site with surrounding bruising, developing eschar, no granulation tissue seen)
Objective Data
Lab Data
Lab Results
02/14/24 04:58
02/14/24 04:58
ESR 95 mm/hour (0-20) H 01/28/24 07:14
PT 27.4 Sec (11.4-14.6) H 01/31/24 08:53
INR 2.50 01/31/24 08:53
APTT 100.5 Sec (23.4-35.0) H 02/14/24 04:58
Estimated Creat Clear 72 ml/min 02/14/24 04:58
Lactic Acid 1.1 mmol/L (0.7-2.0) 01/31/24 04:35
Total Bilirubin 0.5 mg/dl (0.2-1.3) 02/07/24 04:41
AST 34 U/L (17-59) 02/07/24 04:41
ALT 15 U/L (0-50) 02/07/24 04:41
Alkaline Phosphatase 160 U/L (38-126) H 02/07/24 04:41
C-Reactive Protein > 270.00 mg/L (0.0-10.00) H 01/28/24 07:41
Most recent labs reviewed.
Chest US: small/mod bilateral pleural effusions noted
Micro Results:
02/06/24 10:25 C. difficile GDH Antigen & Toxins - Final
Feces/Stool Negative for toxigenic C.difficile
- Final
Negative for Norovirus GI and GII.
01/31/24 12:12 Blood Culture - Final
Blood/Venous No Growth - Final Report
01/31/24 11:15 Blood Culture - Final
Blood/Venous No Growth - Final Report
01/28/24 12:25 Blood Culture - Final
Blood/Venous No Growth - Final Report
01/29/24 15:30 Tissue Culture - Final
Foot - Left S aureus-Methicillin Sensitive
Gram Stain - Final
01/28/24 14:04 MRSA Screen - Final
Nose No Methicillin Resistant Staphylococcus aureus isolated.
--- NOTE | 2024-02-14 10:51 | W.PN.PUL3 ---
Today's Communication / Plan
-
Remains on BIPAP nightly and PRN
High risk given lung disease, he is now DNR
Continue diuresis per cards
Encouraged OOB, PT OT but patient has declined today
Assessment
-
Patient is a 73-year-old male with previous history of hypertension, hyperlipidemia, CHF admitted to on 01/28/2024 for nonhealing left heel wound. He notes that he had a blister that was broken up and on his left heel and was prescribed a
topical antibiotic which did not improve his symptoms. Vascular was consulted and due to progressive lethargy, there is concern for ongoing sepsis. Underwent urgent debridement of heel on 01/29/2024 and transferred postoperatively to ICU.
Impression:
Unresponsiveness, acute hypoxic respiratory failure status post intubation 01/30/24 --> extubated 02/05/2024 --> now awake but confused at times
Acute on chronic congestive heart failure exacerbation with reduced ejection fraction --> improved and close to dry weight
Wet gangrene of the left heel s/p excisional debridement through bone with lavage and irrigation 01/29/2024 - wound Cx grew MSSA
Nonhealing left heel wound
Nausea/vomiting and diarrhea with flat plate concerning for ileus vs early SBO (likely the former)
Leukocytosis
RALU, creatinine 1.9 (Cr baseline: approx. 1.2-1.3) - RAUL improved
Hypernatremia (mild) - resolved
DM type II c/b hyperglycemia (HbA1C: 6.4 on 01/29/2024)
Chronic hypercapnic respiratory failure with metabolic alkalosis
Conditions present prior to admission
History of heart failure, ICM worsened LVEF at 30-35% - TTE 09/11/23
Hypertension
Hyperlipidemia
Morbid obesity, BMI 40.4
Left anterior fascicular block, chronic
History of persistent atrial fibrillation on Eliquis
Coronary disease with history of CA 20+ years ago
History of TIA
Severe sleep apnea, HST AHI 61/78%, failed CPAP 2021
Diabetes
Chronic DJD, back pain
[id number], quit
Chronic cough, COPD/RLD on PFTs, follows at [facility]-Dr Montiel/Chanelle
PAD
Plan
Given patient's chronic hypercapnia likely due to obesity hypoventilation syndrome, he was recommended to continue with BiPAP with sleep
ABG (02/10) shows compensated hypercarbia pH 7.38 and pCO2 62; serum bicarbonate from blood work is 38
Repeat VBG 7. today
Of note, he carries a history of severe obstructive sleep apnea intolerant to CPAP in the past
Recommend outpatient evaluation for sleep disordered breathing given morbid obesity with thick neck
Keep SpO2 >90-94%
Daughter cannot find his old BIPAP device, has requested new set up
CM consult for DME set up
CT head and neck obtained on 01/30/2024 --> bilateral carotid disease noted
Nephrology recs appreciated - trend sCr, I/O and UOP
Troponin peaked at 0.110 on 01/31/2024� cardiology consulted and recommendations appreciated; no need to continue trending troponin
Cardiac history as noted above-Patient follows cardiology (Kim)
Transthoracic echo from 12/12/2023 shows LVEF 35-40% --> echo repeated on 02/04 showed LVEF 35% with severe hypokinesis of the mid�distal
anterior, anteroseptal and apical dahl consistent with a mid LAD infarct; severe LAE
He underwent LHC and RHC on 09/13/2023 showed reduced CI at 1.36 and low PCWP at 13 with slightly elevated PADP at 17mmhg with mild pHTN
(mPAP: 23mmHg)
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
Rate control with goal HR<110bpm
Replete K>4, Mg>2
Unresponsiveness status post intubation 01/29 --> he was extubated on 02/04
CTA chest from 01/30/2024 shows large bilateral pleural effusions with bilateral mosaic attenuation likely due to interstitial edema, without acute PE
CXR on 02/09/2024 still shows evidence of pleural effusions with subsegmental atelectasis
At risk for reintubation if noncompliant with PAP
He is full code
Diet as per BARGE HAND; continue with aspiration precautions
GI ppx: N/A (continue pepcid as this is a home med)
Aspiration precautions
Non healing would of LLE, on abx for coverage, concern for sepsis --> currently on Ancef + flagyl since 02/03 s/p Unasyn and meropenem
s/p debridement 01/29/24, tissue culture grew MSSA; wound vac
Blood culture negative
Vasc surgery saw pt on 02/01 --> patient is at high risk for limb loss due to extent of heel wound + bone exposure; no acute need for surgical intervention at this point
Given his nausea/vomiting and diarrhea starting on evening of 02/04, ID ordered C-diff (negative) and norovirus stool studies (also negative)
Flat plate done on 02/05 showed concern for ileus versus early SBO (suspect the former) - General Surgery consulted and recommended clear liquid diet; hold off on NGT for now and continue to monitor; repeat flatplate and if shows continued findings
of dilated bowel then would consider CT abdomen/pelvis with oral contrast
Monitor function/IOs
Nephrology consulted and recommendations appreciated
Renally dose all meds/Abx; avoid nephrotoxic agents
Diuresis with lasix 40mg daily
CBC stable
Transfuse if needed to keep Hb >7, platelets >20k
DVT ppx: Eliquis
PT/OT when able
Goal BG 140-180
Diabetic AQUATIC SCIENTIST consulted
Continue basal-bolus SQ insulin for now
Patient has a follow-up with our pulmonary office on 03/26/[address] Candelaria - I advised him to keep this appointment.
I have discussed again with the family regarding his lung conditions/risks, states she wanted to 'wait and see' how things go
Care team has been able to change status to DNR, would continue GOC discussions
Diagnostic Data
CXR 02/05/2024: Nasrin is not particularly well seen on this projection. Tip of the endotracheal tube likely approximately 1.5 cm above the nasrin, similar to prior. Enteric catheter and left upper extremity PICC in position. Low lung volumes.
Bilateral small pleural effusions and adjacent atelectasis/consolidation.
Chest X-Ray: 01/28/24- No acute cardiopulmonary process.
09/14/23- No active cardiopulmonary disease.
Flat Plate 02/06/2024: Increased mild distention of small bowel, ileus versus at least partial distal small bowel obstruction.
CTA Chest 01/30/2024:Markedly limited study, as detailed above, with no findings to suggest bilateral CENTRAL pulmonary embolism. Large right lower lobe consolidation and moderate right pleural effusion.Left lower lobe subsegmental atelectasis and
small left pleural effusion. Groundglass opacity and mild septal thickening suggesting mild to moderate pulmonary edema. Endotracheal tube with tip in trachea above the nasrin. No pneumothorax.
CT Scan: CHEST 10/18/22- Stable small perifissural pulmonary nodules along the left major fissure. Stable mild small reticulonodular interstitial opacities in the bilateral upper lobes, right > left
CAP 05/04/22- No acute pathology of the chest, abdomen and pelvis identified. Few left upper and lower lobe pulmonary nodules. Bilateral small renal cysts. Bilateral too small to characterize hypodense renal lesions, likely benign cysts. Moderate
fecal material throughout the colon. Mild diverticulosis.
Echo: 12/12/23- Moderately reduced left ventricular systolic function. Estimated left ventricular ejection fraction is 35-40% . Wall motion analysis is limited due to image quality. Mild mitral regurgitation. Compared to the previous report
12/12/2023 findings are similar no significant change previously estimated ejection fraction 35%
PFT's: 03/29/23 FEV1 1.91 L 77%, FVC 2.57 L 75%, ratio 74. TLC 3.63 L 59%, DLCO 60%--moderately severe restriction, mild diffusion impairment
Reports and relevant images were personally reviewed.
-----
Total time spent today was 50 minutes for this encounter. Time includes reviewing laboratory test/imaging results, reviewing pertinent medical records, obtaining and reviewing medical history, performing an appropriate exam, ordering medications,
tests and procedures. Time also includes documentation of this encounter, coordinating patient care and communicating with other healthcare professionals. Total time does not include separately billed tests performed on this date of service.
Subjective Data
-
Date of Service:
Date of Service: February 14, 2024
Chief Complaint: Pulmonary Follow Up
Subjective:
Maintained on BIPAP at night, and PRN
Doing well, somewhat anxious but MS seems better today
Objective Data
Data Reviewed
Vital Signs / I&O / Oxygen:
Vital Signs
Temp Pulse Resp BP Pulse Ox
96.1 F L 95 20 114/68 91
02/14/24 07:50 02/14/24 10:00 02/14/24 10:00 02/14/24 10:00 02/14/24 10:00
Intake and Output
02/13/24 02/14/24 02/15/24
06:59 06:59 06:59
Intake Total 770 / 770 672 / 672 240 / 240
Output Total 1325 / 1325 625 / 625
Balance -555 / -555 47 / 47 240 / 240
SaO2 [CPAP/PSV] 98
SaO2 [A/C] 100
SaO2 91
Nasal Cannula flow liters per 60
minute
Physical Exam
General: Respiratory Distress (mild), Chills (negative), Sweats (negative) and Poor Appetite
HEENT: Normocephalic, Anicteric and Moist Mucous Membranes
Cardiovascular: S1-S2, Regular Rhythm, Rub (negative) and Peripheral Edema (+1 lower extremity pitting edema bilaterally)
Respiratory: Wheeze (negative), Crackles (Bilateral), Rhonchi (negative) and Non-Labored Respirations
GI: Soft, Distended (Abdominal obesity), Non Tender and Normal Bowel Sounds
Neurology: Awake, Alert, No Motor Deficits, Tremors (negative) and Lethargic (confused)
Skin: Warm, Dry and Cyanosis (negative)
Labs/Micro/Reports
Lab Data
02/14/24 04:58
02/14/24 04:58
Laboratory Results
02/13/24 02/13/24 02/14/24
10:37 16:44 04:58
APTT 80.2 H 84.7 H 100.5 H
--- NOTE | 2024-02-14 10:56 | W.PN.UPDATE ---
Update Note
Progress Note Update
I saw and evaluated the patient. I reviewed the resident�s note and agree with findings and plan as documented in the resident�s note.
Denies CP/SOB/abd pain.
Gen: NAD, AAOx3,, NCAT
Neck: supple.
CV: irreg/irreg, +S1/S2, no m/r/g.
Resp: decreased BS R base, rales in the bases
Abd: +BS, soft, NT, ND
Skin: No rashes.
Neuro: CN 2-12 intact, nonfocal
Psych: normal mood and affect
Acute on chronic hypoxemic respiratory failure requiring intubation/mechanical ventilator:
-due to acute on chronic HFrEF with known EF of 35%, NYHA class III-IV
-now extubated
-note, at one point was on IVFs for hypernatremia. Then pt was diuresed with IV Lasix which continues. Wts decreasing.
-overnight 02/07-02/08 patient was noncompliant with NC O2 (removed NC O2) and desaturated to the 40s. He was placed on BiPAP but was unable to tolerate. Was weaned to 15L midflow.
-02/12/24AM, pt noncompliant with BIPAP and desaturated to 60s. Then agreed to be compliant with BIPAP and ABG improved (pH and PCO2).
-cont BIPAP HS (pt was compliant last night)
-Dry weight likely lower than prior and the current driving force of the patient's respiratory failure is acute on chronic HFrEF at this time. Cont Lasix 40mg IV BID.
-as per prior discussion with Dr. Mcintosh, no benefit to RHC at this moment.
-currently on 14L midflow, NOT MEDICALLY OPTIMIZED for OR
Severe sepsis:
-due to L foot plantar ulcer with osteomyelitis
-Family initially opted for salvage of the extremity to avoid amputation, now plans for amputation this week
-cont Ancef/Flagyl as per ID
-cont heparin gtt preop.
Other problems:
Primary respiratory acidosis with secondary metabolic alkalosis
Permanent atrial fibrillation: cont BB/Eliquis
RAUL on CKD3b, resolved
DM2: a1c 6.4%, SSI/accuchecks
Hospital acquired delirium, supportive care
Obesity due to excess calories
Pt's daughter updated at bedside at length.
DNR/Eliquis
Total time spent on today's encounter was 50 minutes which included time spent in counseling the patient/family regarding diagnosis and treatment plan as listed above, goals of care, and symptom management. Case was discussed with nursing staff,
specialists, and care coordinators/case management. All labs and imaging personally reviewed by me. Remainder the time spent in detailed review of previous records, lab data, imaging, and other medical provider documentation.
[2024-02-14] MEDS: NOVOLOG FLEXPEN-LOW RESISTANCE 2 UNITS SC (11:37)
--- NOTE | 2024-02-14 11:37 | W.PN.NEPH.PH ---
Today's Communication / Plan
-
continue lasix
Assessment/Plan
-
Impression:
RAUL
CKD 3b (1.6)
Metabolic acidosis
Left plantar foot ulceration with gangrenous changes s/p debridement
Ischemic cardiomyopathy EF 30%
History of hypertension
History of diabetes
Profound peripheral vascular disease
Diabetes
Plan:
continue lasix
metabolic alkalosis stable
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
will need to be cautious about using diamox
follow BMP
d/w pt and daughter
-
-
Date of Service: February 14, 2024
CC / HPI / ROS
-
Chief Complaint:
RAUL with CKD
History of Present Illness:
cr down to 1.0, sodium stable at 140
non oliguric with lasix
Hemodynamically stable
ABG reviewed notes acidemia with prominent hypercapnia
P.o. intake limited
Review of Systems:
extubated 02/04
still on high flow O2
wt down
no cp at rest
Nonoliguric
Labs
-
Labs:
WBC 10.0 10^3/uL (4.8-10.8) 02/14/24 04:58
RBC 3.41 10^6/uL (4.70-6.10) L 02/14/24 04:58
Hgb 9.0 g/dL (13.0-18.0) L 02/14/24 04:58
Hct 29.4 % (39.0-52.0) L 02/14/24 04:58
Plt Count 270 10^3/uL (130-400) 02/14/24 04:58
Sodium 140 mmol/L (135-145) 02/14/24 04:58
Potassium 3.6 mmol/L (3.5-5.1) 02/14/24 04:58
Chloride 94 mmol/L (98-107) L 02/14/24 04:58
Carbon Dioxide 39 mmol/L (22-30) H 02/14/24 04:58
BUN 30 mg/dl (9-20) H 02/14/24 04:58
Creatinine 1.0 mg/dL (0.7-1.3) 02/14/24 04:58
eGFR > 60.00 02/14/24 04:58
Glucose 129 mg/dl (70-99) H 02/14/24 04:58
Calcium 7.8 mg/dl (8.4-10.2) L 02/14/24 04:58
Phosphorus 3.7 mg/dl (2.5-4.5) 02/07/24 04:41
Mot-N-Qbqvqmeppwf Pept 7400 pg/ml 02/11/24 03:56
Albumin 2.7 g/dl (3.5-5.0) L 02/07/24 04:41
Physical Exam
-
Vital Signs:
Vital Signs
Temp Pulse Resp BP Pulse Ox
96.1 F L 95 20 114/68 91
02/14/24 07:50 02/14/24 10:00 02/14/24 10:00 02/14/24 10:00 02/14/24 10:00
Cardiovascular:: Regular rate and rhythm
Respiratory:: Bilateral: Coarse
Lung Excursion:: Normal
Abdomen:: Nontender and Soft
Bowel Sounds:: Normal
Extremity Edema:: None: Bilateral:
[2024-02-14 11:44] LABS: Glucose - Point of Care 219 mg/dl (70-99)
--- NOTE | 2024-02-14 16:59 | PTCARENOTE ---
Pt presents as assessed. Family and 1:1 at bedside throughout the day. Much more alert and oriented. Tolerating 15L MFNC while awake and placed on Bipap for naps. Updated on plan of care, ringing appropriately.
[2024-02-14 17:06] LABS: Glucose - Point of Care 266 mg/dl (70-99)
[2024-02-14] MEDS: LIPITOR 80 MG PO (17:06)
[2024-02-14] MEDS: NOVOLOG FLEXPEN-LOW RESISTANCE 3 UNITS SC (17:12)
[2024-02-14] MEDS: PEPCID 20 MG PO (21:36)
[2024-02-14] MEDS: LANTUS 0.2 UNITS SC (21:36)
[2024-02-14] MEDS: HEPARIN 25000 UNITS/250 ML IV (21:36)
[2024-02-14 21:43] LABS: Glucose - Point of Care 248 mg/dl (70-99)
[2024-02-15] VITALS (15 sets, daily range): BP systolic 110–158; BP diastolic 55–88; PULSE 3–93; BMI 36.8
[2024-02-15] MEDS: ANCEF 10 IV ×3 (01:32→17:16)
[2024-02-15 05:55] LABS: Hematocrit 30.2 % (39.0-52.0); Hemoglobin 9.2 g/dL (13.0-18.0); Mean Corp Hgb Conc. 30.5 g/dL (33.0-37.0); Mean Corpuscular Hgb 26.1 pg (27.0-31.0); Mean Corpuscular Volume 85.6 fL (80.0-94.0); Mean Platelet Volume 10.4 fL (7.4-10.4); Platelet Count 292 10^3/uL (130-400); Red Blood Cell Count 3.53 10^6/uL (4.70-6.10); Red Cell Dist. Width 20.7 % (11.5-14.5); White Blood Cell Count 9.9 10^3/uL (4.8-10.8)
[2024-02-15 06:08] LABS: APTT 90.2 Sec (23.4-35.0)
--- NOTE | 2024-02-15 06:18 | PTCARENOTE ---
Pt compliant with BiPAP throughout night, setting (18/8, 15L) . SP02 100% respiration even unlabored. Pt mentation better, still forgetful and appears easily discouraged at times. Heparin gtt continues at 1100U/hr morning labs showing therapeutic
PTT at 90.2. Assessment care and vitals as charted.
[2024-02-15 06:41] LABS: Blood Urea Nitrogen 30 mg/dl (9-20); Chloride 92 mmol/L (98-107); Estimated Creatinine Clearance 72 ml/min; Glucose 160 mg/dl (70-99); Potassium 3.5 mmol/L (3.5-5.1); Sodium 138 mmol/L (135-145); eGFR > 60.00
[2024-02-15 06:53] LABS: Carbon Dioxide 36 mmol/L (22-30)
[2024-02-15] MEDS: NOVOLOG FLEXPEN-LOW RESISTANCE SC (07:27)
[2024-02-15] MEDS: LOW STRENGTH ASPIRIN 81 MG TUBE (07:28)
[2024-02-15] MEDS: FLAGYL 500 MG PO ×2 (07:28→20:06)
[2024-02-15] MEDS: TOPROL XL 50 MG PO ×2 (07:28→20:07)
[2024-02-15] MEDS: LASIX 40 MG IV ×2 (07:28→17:15)
[2024-02-15] MEDS: DESENEX/MITRAZOL/ZEASORB 1 APPLIC TOPICAL ×2 (07:29→20:07)
[2024-02-15 07:32] LABS: Glucose - Point of Care 139 mg/dl (70-99)
--- NOTE | 2024-02-15 07:57 | W.PN.UPDATE ---
Update Note
Progress Note Update
I saw and evaluated the patient. I reviewed the resident�s note and agree with findings and plan as documented in the resident�s note.
Denies any new complaints.
Gen: NAD, AAOx3,, NCAT
Neck: supple.
CV: remains irreg/irreg, +S1/S2, no m/r/g.
Resp: CTAB anteriorly
Skin: No rashes.
Neuro: CN 2-12 intact, nonfocal
Psych: normal mood and affect
Acute on chronic hypoxemic respiratory failure requiring intubation/mechanical ventilator:
-due to acute on chronic HFrEF with known EF of 35%, NYHA class III-IV
-now extubated
-note, at one point was on IVFs for hypernatremia. Then pt was diuresed with IV Lasix which continues. Wts decreasing.
-overnight 02/07-02/08 patient was noncompliant with NC O2 (removed NC O2) and desaturated to the 40s. He was placed on BiPAP but was unable to tolerate. Was weaned to 15L midflow.
-02/12/24AM, pt noncompliant with BIPAP and desaturated to 60s. Then agreed to be compliant with BIPAP and ABG improved (pH and PCO2).
-cont BIPAP HS (pt was compliant last night)
-Dry weight likely lower than prior and the current driving force of the patient's respiratory failure is acute on chronic HFrEF at this time. Cont Lasix 40mg IV BID. Weight decreasing daily.
-as per prior discussion with Dr. Mcintosh, no benefit to RHC at this moment.
-currently on 12L midflow (down from 14L yesterday), NOT MEDICALLY OPTIMIZED for OR
Severe sepsis:
-due to L foot plantar ulcer with osteomyelitis
-Family initially opted for salvage of the extremity to avoid amputation, now plans for amputation this week
-cont Ancef/Flagyl as per ID
-cont heparin gtt preop.
Other problems:
Primary respiratory acidosis with secondary metabolic alkalosis
Permanent atrial fibrillation: cont BB/Eliquis
RAUL on CKD3b, resolved
DM2: a1c 6.4%, SSI/accuchecks
Hospital acquired delirium, supportive care
Obesity due to excess calories
Pt's daughter updated at bedside at length.
DNR/Eliquis
Total time spent on today's encounter was 51 minutes which included time spent in counseling the patient/family regarding diagnosis and treatment plan as listed above, goals of care, and symptom management. Case was discussed with nursing staff,
specialists, and care coordinators/case management. All labs and imaging personally reviewed by me. Remainder the time spent in detailed review of previous records, lab data, imaging, and other medical provider documentation.
--- NOTE | 2024-02-15 08:06 | PN.DE.MGMTRT ---
Insulin Management
- -
02/15/2024: Diabetes management Follow up:
73 years old male with multiple comorbidities admitted to the hospital on 01/27 with sepsis due to left foot plantar infected ulcer 2/2 diabetic foot ulcer and peripheral vascular disease S/P left heal debridement. Diabetes consult requested on 02/04
for Hyperglycemia.
PMH: HTN, HLD, CAD, PVD, CHF, COPD and T2DM. Was taking Jardiance 10mg daily, Tresiba 45 units daily, metformin 1000mg BID and NovoLog 7-20 units AC. A1C 6.4%, Cr 1.5, eGFR 48.25. 01/30 started on tube feeds contributing to Hyperglycemia. 02/01 was
initiate on CC glycemic protocol, developed hypoglycemia on 02/03 while on insulin drip. Was transitioned off on 02/03 to SQ insulin- HS Lantus 5 units and moderate corrective only by Dr. Marcano.
Glucose has remained elevated since transition, 241 to 415, requiring high doses 3-9 units of corrective insulin.
Pt more alert today able to participate in diabetes discussion, family at bedside. Has resumed eating meals.
Per Vascular surgeon, OR tissue cultures of bone-->Staph aureus (confirming osteomyelitis)
02/13 Fasting glucose 129. Will continue lantus 20 units @ HS with low corrective insulin Q 6 hours.
02/14 Glucose trended up to 266 will resume AC novolog at reduced dose 5 units AC with corrective insulin.
Discussed with patients nurse.
Diabetes History
- -
Type of Diabetes: 2 requiring insulin
Pre-Admission Diabetes Regimen
02/15/24
05:39
Creatinine 1.0
Lab Results
Hemoglobin A1c 6.4 % (4.0-5.6) H 01/29/24 07:22
Insulin Pump Settings
IP Diabetes Regimen
02/14/24 02/14/24 02/14/24
11:33 16:55 21:31
Glucose
POC Glucose 219 H 266 H 248 H
02/15/24 02/15/24
05:39 07:20
Glucose 160 H
POC Glucose 139 H
Meal type: Lunch
Meal type: Breakfast
Amount consumed: 100%
Amount consumed: 100%
Patient Education
--- NOTE | 2024-02-15 08:38 | W.PN.ID1 ---
Date of Service
Date of Service: February 15, 2024
Today's Communication
- planned for amputation of foot when medically optimized, then would stop antibiotics
Assessment / Plan
Osteomyelitis of the L heel
Left heel ulcer with wet gangrene s/p debridement to bone
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
RAUL on CKD
Class II obesity
- 01/28 tissue culture with MSSA, no anaerobic culture done
- c/w cefazolin and metronidazole
- PICC removal before dc
- planned for amputation of foot when medically optimized, then would stop antibiotics
����������������������������������������������������������
Chief Complaint
-: Other (calceneal osteomyelitis, L foot)
Subjective / Review of Systems
afebrile
bp stable
tolerating current therapies
Vital Signs / Physical Exam
Vital Signs
Vital Signs
Temp Pulse Resp BP Pulse Ox
97.2 F 89 20 158/73 100
02/15/24 07:24 02/15/24 07:28 02/15/24 06:00 02/15/24 07:28 02/15/24 06:00
Physical Exam
Constitutional: Chronically Ill
Cardiovascular: Regular Rate and S1/S2; Negative Murmur or Rub
Pulmonary: Clear and Symmetric; Negative Wheezes or Rales
Gastrointestinal: Soft, Non Tender, Non Distended and Normal Bowel Sounds
Skin: Warm and Dry; Negative Rash or Jaundice
Objective Data
Lab Data
Lab Results
02/15/24 05:39
02/15/24 05:39
ESR 95 mm/hour (0-20) H 01/28/24 07:14
PT 27.4 Sec (11.4-14.6) H 01/31/24 08:53
INR 2.50 01/31/24 08:53
APTT 90.2 Sec (23.4-35.0) H 02/15/24 05:39
Estimated Creat Clear 72 ml/min 02/15/24 05:39
Lactic Acid 1.1 mmol/L (0.7-2.0) 01/31/24 04:35
Total Bilirubin 0.5 mg/dl (0.2-1.3) 02/07/24 04:41
AST 34 U/L (17-59) 02/07/24 04:41
ALT 15 U/L (0-50) 02/07/24 04:41
Alkaline Phosphatase 160 U/L (38-126) H 02/07/24 04:41
C-Reactive Protein > 270.00 mg/L (0.0-10.00) H 01/28/24 07:41
Most recent labs reviewed.
Micro Results:
02/06/24 10:25 C. difficile GDH Antigen & Toxins - Final
Feces/Stool Negative for toxigenic C.difficile
- Final
Negative for Norovirus GI and GII.
01/31/24 12:12 Blood Culture - Final
Blood/Venous No Growth - Final Report
01/31/24 11:15 Blood Culture - Final
Blood/Venous No Growth - Final Report
01/28/24 12:25 Blood Culture - Final
Blood/Venous No Growth - Final Report
01/29/24 15:30 Tissue Culture - Final
Foot - Left S aureus-Methicillin Sensitive
Gram Stain - Final
01/28/24 14:04 MRSA Screen - Final
Nose No Methicillin Resistant Staphylococcus aureus isolated.
--- NOTE | 2024-02-15 09:07 | W.PN.CD ---
Today's Communication / Plan
-
continue IV lasix
continue Toprol
continue heparin drip, and eventual transition back to eliquis post op
Impression / Plan
-
Impression/Plan: 73 y/o male (known to Dr. Alvarez, his primary [employer]) with HTN, HLD, IDDM, COPD, permanent atrial fibrillation (on apixaban), CAD with ICMO, PAD with prior LSFA endovascular intervention, and obesity admitted with
non-healing left foot ulcer/wet gangrene complicated by sepsis now s/p left heal debridement, subsequently complicated by VDRF and hypotension requiring pressor support.
HFrEF, LVEF 35% 02/2024
- goal weight has been felt to be 105.7kg based on RHC performed 09/2023; but now dry weight is now lower with nutritional change
-U/S 02/13/2024 did not favor thoracentesis (small-mod bilat effusions)
- continue Lasix 40 IV BID
-close monitoring of labs, tele, weight
- U/S 02/13/2024 did not favor thoracentesis (small-mod bilat effusions)
- continue Toprol XL: increase to 50mg bid
- he likely needs another surgery
-post op, assess to add back lisinopril, SGLT2i, aldactone
Significant complex lung disease
- Significant CO2 retention
- Pulm consulted
Contracture alkalosis
- May need Diamox
Left heal wet gangrene/septic shock/ osteomyelitis
-Pre op assessment
- Patient will likely require amputation.
- Increased risk due to recent heart failure, cardiomyopathy, CAD and afib.
- Considering the importance of surgery with sepsis and osteo, it is reasonable to proceed with surgery this admission (high, but not prohibitive, risk)
- on heparin drip due to prolonged eliquis hold
Ischemic cardiomyopathy
-Chronic.
-LVEF = 35%.
-GDMT: will hold GDMT other than Toprol XL pre-operative pending vascular surgery and reintroduce post-operatively as above
Nonsustained VT
- 13 seconds over the weekend
- Increased BB
- Later can consider primary prevention ICD
Permanent Atrial fibrillation
-rate control: Toprol XL
-AC: heparin drip, then back to eliquis post op
Coronary artery disease, old RI, chronically occluded LAD.
-continues on ASA/statin
Subjective:
SOB and edema better.
DATA:
Echo 02/05/2024: Left ventricular ejection fraction is 35%; no significant valvular disease.
Cath 09/13/2023:
1. Right dominant circulation with a 50% lesion in the distal third of the RPDA, a diffusely diseased, small first obtuse marginal, a 30% lesion in the mid ramus, a 40% lesion in the origin of the first diagonal and a chronic total occlusion of the
mid LAD (known since cardiac catheterization in 1999).
2. Normal filling pressures (LVEDP = 10 mmHg, PCWP = 13 mmHg at 105.7 kg).
3. Severely impaired cardiac function (cardiac index = 1.36 L/min/m�, a VO2 difference 8.63 volume percent).
4. Mild precapillary pulmonary hypertension (mean PA pressure = 23 mmHg, PVR = 3.44 Moser units).
5. Significantly elevated peripheral vascular resistance (1787 dynes*seconds*cm^5).
Physical Exam
Vital Signs/Labs
Vital Signs
Temp Pulse Resp BP Pulse Ox
97.2 F 89 20 158/73 100
02/15/24 07:24 02/15/24 07:28 02/15/24 06:00 02/15/24 07:28 02/15/24 06:00
02/14/24 02/15/24 02/16/24
06:59 06:59 06:59
Actual Weight 104.5 kg 103.5 kg
02/15/24 05:39
02/15/24 05:39
PT 27.4 Sec (11.4-14.6) H 01/31/24 08:53
INR 2.50 01/31/24 08:53
APTT 90.2 Sec (23.4-35.0) H 02/15/24 05:39
Magnesium 1.8 mg/dl (1.6-2.3) 02/13/24 03:09
Triglycerides 150 mg/dl (10-149) H 02/05/24 03:31
01/31/24 02/07/24 02/11/24
09:09 04:41 03:56
[id number] Pept [id number] 7400
Physical Exam
Constitutional: No acute distress
EENT: Moist mucous membranes
Cardiovascular: Rhythm/rate is irregular, Pedal edema present, JVD present and Systolic murmur present
Respiratory: Labored respirations
Neuro/Psych: Alert
Data Reviewed
-
Date of Service: February 15, 2024
EKG: Other (Tele: Afib 80s-90s)
Labs: Labs Reviewed by me
--- NOTE | 2024-02-15 09:10 | W.PN.HOSP.TC ---
Today's Communication/Plan
-
Continue IV diuresis twice daily.
Continue metronidazole and Ancef till BKA.
Monitor weights every day, incentive spirometry.
Trend renal function.
Assessment / Plan
Assessment / Plan
ssessment -73 Yo M with PMHx significant for peripheral vascular disease, CKD stage IIIb, CAD, permanent A-fib, TIA, hypertension, hyperlipidemia, insulin-dependent type 2 diabetes mellitus, with multiple comorbidities presented to the hospital with
sepsis due to left foot plantar infected diabetic foot ulcer with underlying PAD.
Plan -
Acute on Chronic HFrEF -
Likely secondary to sepsis in the setting of pre-existing CAD and heart failure.
Exacerbated yesterday after initiation of IVF for his hypernatremia.
X ray showed increased pleural effusion and mild interstitial edema.
Gentle diuresis today. Reassess him on day to day basis for diuresis based on his volume status.
Cardiology on board. Appreciate input
Most recent echocardiogram-09/26-EF 30 to 35%.
Continue GDMT as tolerated. Cardiology added metoprolol.
Patient had 13 seconds of NSVT and metoprolol dose bumped to 50 on 02/10/24.
Patient's dry weight has likely changed given his Chronic illness and intubation. Suspect dry weight is much lower than 105kgs. IV Lasix twice daily. CO2 levels improving.
Current weight-103.5 kgs, renal function stable with BUN-29, serum creatinine at 1.0, EGFR greater than 60.
Trend daily weights, I's and O's.
Continue to trend renal function
Severe sepsis-resolved.
Secondary to diabetic left plantar foot ulcer with underlying peripheral vascular disease.
Status post sharp excisional debridement by vascular surgery team on 01/28, lactic acid levels on 01/29 at 5.4.
Left heel bone biopsy growing MSSA, patient was initially started on IV cefepime and vancomycin then transition to meropenem and vancomycin and then to Unasyn.
ID on board, appreciate inputs.
Patient is currently on cefazolin and metronidazole.
BKA of his left foot by vascular team scheduled tentatively for for 02/13/2024 on hold procedure held.
Ventilator dependent respiratory failure- extubated on 02/05/24.
Acute on chronic hypoxic respiratory failure.
Patient is back on BiPAP. Although there is some pulmonary component to it, suspect BiPAP and oxygen requirement secondary to heart failure.
CT x-ray evident for pulmonary edema. Chest x-ray showed worsening pleural effusion and pulmonary edema.
Also history of PHTN, untreated, precapillary likely secondary to ERICK.
Given patient's history of pulmonary hypertension and untreated ERICK, his baseline O2 saturation is probably 88-92..
Wean off mid flow to keep his oxygen saturations at 88-92.
Shock-01/29.
Unclear etiology whether septic versus cardiogenic.
CT PE negative for pulmonary embolism, however there is some evidence for mild to moderate pulmonary edema.
[place] [address] [place] admission, reduced to 6210 on 02/07/24. His repeat proBNP levels on 02/11/2024 at 7400. Elevated lactic acid levels at 5.4 upon admission.
Patient is off of sedatives and pressors -for more than a week now.
Partial small bowel obstruction versus ileus.
Surgery on board, recommended to continue advancing diet as tolerated and monitor for symptoms.
Resolved.
RAUL on CKD stage 3b
likely secondary to cardiorenal syndrome.
Cr down to 1.5, baseline is at 1.2 . Currently at 1.3
Continue to trends weights, I and O, and
Patient is currently at 104.5 kgs. gentle diuresis per nephro.
Currently patient is alkalotic and hypercarbic.
Avoid nephrotoxic agents. Discontinued bicarbonate yesterday.
Renal on board, appreciate inputs.
Peripheral vascular disease-
No plan for staged revascularization procedure due to clinical instability.
Patient is currently on Eliquis.
Status post left lower extremity arteriogram and stent to SFA, angioplasty to PT per vascular surgery in 09/26.
Permanent A-fib
On metoprolol.
[id number] score-Transitioned back to Eliquis from heparin.
Questionable PVCs on telemetry in the a.m. today. Obtain an EKG.
Hypernatremia -
likely secondary to hemoconcentration from Diuresis.
Speech eval - NPO after intubation yesterday.
Recommended regular diet today.
recommend adequate oral hydratipon.
Discontinue tube feeds.
Reassess for hypernatremia tomorrow.
Leukocytosis-
White blood cell count trending up again.
Suspect secondary to partial small bowel obstruction, not considered as inadequate response to antibiotics.
ID on board, appreciate inputs.
Type 2 diabetes mellitus-
HbA1c at 6.4.
Rpsfbusdb-Vcgtwom-51 units daily. Developed hypoglycemia on Tresiba - 02/07/24, diabetes nurse practitioner consulted for diabetes education and management.
Tube feeds discontinued. Overnight insulin requirement was low.
Continue to monitor glucose with tight glycemic control.
Elevated troponins
Type II demand ischemia
Troponins trended down on 02/02.
Cardiology on board.
Previous history of coronary artery disease.
/Hospital acquired delirium
Delrium precautions
Reorientation
DUe to resp status would avoid melatonin and other sedative
DVT prophylaxis-on Eliquis
CODE STATUS DNR
Conditions [employer] -
CAD-continue his home meds-aspirin.
Hypertension-continue lisinopril.
Hyperlipidemia-continue Lipitor.
TIA
Asthma
Morbid obesity
Hypoglycemia
Investigations -
Chest X-Ray:
02/07/24 - Slightly increased size of the small right pleural effusion with adjacent atelectasis. There is a likely trace left pleural effusion with adjacent atelectasis, similar to prior.
Mild interstitial edema.
02/05/24 -
As above, flip is not particularly well seen on this projection. Tip of the endotracheal tube likely approximately 1.5 cm above the flip, similar to prior. Enteric catheter and left upper extremity PICC in position.
Low lung volumes. Bilateral small pleural effusions and adjacent atelectasis/consolidation.
01/28/24- No acute cardiopulmonary process.
09/14/23- No active cardiopulmonary disease.
Abdomen X ray -
02/01/24- Nasogastric tube is seen with tip in the distal stomach. Study is otherwise stable.
CTA - 01/30/24 -
Scattered mild to moderate calcified plaque of the common carotid arteries, bilaterally. Bilateral bulb calcified plaque and calcified plaque at the ICA origin and proximal internal carotid arteries.
Distal left common carotid artery estimated luminal diameter reduction of 65%. Proximal left ICA estimated luminal diameter reduction of approximately 60%.
Proximal right ICA estimated luminal diameter reduction of approximately 50%.
Bilateral cavernous ICA calcified plaque with estimated luminal diameter reduction of less than 50%.
Normal variant absent right anterior cerebral artery A1 segment, with the A2 segment supplied by a patent anterior to be encasing artery.
Otherwise, no intracranial cerebral artery plaque, stenosis, occlusion, or aneurysm.
The vertebral arteries are patent. Patent basilar artery.
Moderate right and small left pleural effusion. Pulmonary parenchymal consolidation, right greater than left, atelectasis versus pneumonia. Mild superior mediastinal adenopathy.
CT Scan: CHEST 10/18/22- Stable small perifissural pulmonary nodules along the left major fissure. Stable mild small reticulonodular interstitial opacities in the bilateral upper lobes, right greater than left.
CAP 05/04/22- No acute pathology of the chest, abdomen and pelvis identified. Few left upper and lower lobe pulmonary nodules. Bilateral small renal cysts. Bilateral too small to characterize hypodense renal lesions, likely benign cysts. Moderate
fecal material throughout the colon. Mild diverticulosis.
Echo: 12/12/23- Moderately reduced left ventricular systolic function. Estimated left ventricular ejection fraction is 35-40% . Wall motion analysis is limited due to image quality. Mild mitral regurgitation.
Compared to the previous report 12/12/2023 findings are similar no significant change previously estimated ejection fraction 35%
PFT's: 03/29/23 FEV1 1.91 L 77%, FVC 2.57 L 75%, ratio 74. TLC 3.63 L 59%, DLCO 60%--moderately severe restriction, mild diffusion impairment
Anticipated Discharge: > 48 hours
Subjective/Interval History
-
Date of Service: February 15, 2024
No complaints overnight. Patient is compliant with BiPAP. Currently on mid flow at 13 L. Single episode of apnea-0.41 seconds overnight on telemetry. Continues to remain in A-fib on telemetry., Rate controlled.
Objective Data
-
Labs:
Laboratory Results
02/15/24
05:39
WBC 9.9
Hgb 9.2 L
Hct 30.2 L
Plt Count 292
APTT 90.2 H
Sodium 138
Potassium 3.5
Chloride 92 L
Carbon Dioxide 36 H
BUN 30 H
Creatinine 1.0
Glucose 160 H
Calcium 8.0 L
Vital Signs:
Vital Signs
Temp Pulse Resp BP Pulse Ox
97.2 F 89 20 158/73 100
02/15/24 07:24 02/15/24 07:28 02/15/24 06:00 02/15/24 07:28 02/15/24 06:00
I&O
02/14/24 02/15/24 02/16/24
06:59 06:59 06:59
Intake Total 672 / 672 780 / 780
Output Total 625 / 625 1425 / 1425 850 / 850
Balance 47 / 47 -645 / -645 -850 / -850
Review of Systems
-
History Source: Patient
Constitutional: Reports No Symptoms
EENT: Reports No Symptoms Reported
Respiratory: Reports Trouble Breathing
Cardiac: Reports No Symptoms
Abdomen/GI: Reports No Symptoms
Breast: Reports No Symptoms
Genitourinary: Reports No Symptoms
Musculoskeletal: Reports No Symptoms
Skin: Reports No Symptoms
Neuro: Reports No Symptoms
Endocrine: Reports No Symptoms
Hematologic / Lymphatic: Reports No Symptoms
Allergy / Immunology: Reports No Symptoms
Physical Exam
-
General: Respiratory Distress (Mild respiratory distress on mid flow nasal cannula, at 12 L.)
HEENT: Moist Mucous Membranes
Respiratory: Wheezes and Crackles; Negative Rales or Rhonchi
Cardiac: S1/S2 and Irregular Rhythm; Negative Murmur, Rub or Gallop
GI: Soft, Nontender and Normal Bowel Sounds
Musculoskeletal: No Clubbing, No Cyanosis and No Edema
Neuro: Awake and No Motor Deficits
Psych: Calm
[2024-02-15] MEDS: NOVOLOG FLEXPEN SC ×2 (09:17→12:50)
--- NOTE | 2024-02-15 10:51 | W.PN.NEPH.PH ---
Today's Communication / Plan
-
Follow BMP
Assessment/Plan
-
Impression:
RAUL
CKD 3b (1.6)
Metabolic acidosis
Left plantar foot ulceration with gangrenous changes s/p debridement
Ischemic cardiomyopathy EF 30%
History of hypertension
History of diabetes
Profound peripheral vascular disease
Diabetes
Plan:
continue lasix
metabolic alkalosis stable
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
No need for Diamox currently
follow BMP
Possible amputation next week
-
-
Date of Service: February 15, 2024
CC / HPI / ROS
-
Chief Complaint:
RAUL with CKD
History of Present Illness:
cr down to 1.0, sodium stable at 138
non oliguric with lasix
Hemodynamically stable
Metabolic alkalosis slightly better
P.o. intake limited
Review of Systems:
still on high flow O2
wt down
no cp at rest
Nonoliguric
Labs
-
Labs:
WBC 9.9 10^3/uL (4.8-10.8) 02/15/24 05:39
RBC 3.53 10^6/uL (4.70-6.10) L 02/15/24 05:39
Hgb 9.2 g/dL (13.0-18.0) L 02/15/24 05:39
Hct 30.2 % (39.0-52.0) L 02/15/24 05:39
Plt Count 292 10^3/uL (130-400) 02/15/24 05:39
Sodium 138 mmol/L (135-145) 02/15/24 05:39
Potassium 3.5 mmol/L (3.5-5.1) 02/15/24 05:39
Chloride 92 mmol/L (98-107) L 02/15/24 05:39
Carbon Dioxide 36 mmol/L (22-30) H 02/15/24 05:39
BUN 30 mg/dl (9-20) H 02/15/24 05:39
Creatinine 1.0 mg/dL (0.7-1.3) 02/15/24 05:39
eGFR > 60.00 02/15/24 05:39
Glucose 160 mg/dl (70-99) H 02/15/24 05:39
Calcium 8.0 mg/dl (8.4-10.2) L 02/15/24 05:39
Phosphorus 3.7 mg/dl (2.5-4.5) 02/07/24 04:41
Wdr-Z-Qnwtllrbdqv Pept 7400 pg/ml 02/11/24 03:56
Albumin 2.7 g/dl (3.5-5.0) L 02/07/24 04:41
Physical Exam
-
Vital Signs:
Vital Signs
Temp Pulse Resp BP Pulse Ox
97.2 F 80 22 151/88 100
02/15/24 07:24 02/15/24 08:00 02/15/24 08:00 02/15/24 08:00 02/15/24 09:48
Cardiovascular:: Regular rate and rhythm
Respiratory:: Bilateral: Coarse
Lung Excursion:: Normal
Abdomen:: Nontender and Soft
Bowel Sounds:: Normal
Extremity Edema:: +1: Bilateral:
--- NOTE | 2024-02-15 11:44 | PTOTSP ---
Speech Language Pathology
Pt seen for dysphagia tx. Repositioned to upright position. P.O. trials of regular solids and thin liquids provided. Adequate mastication, bolus formation, and A-P transit noted with no oral residue. No overt signs of aspiration. WBC WNL.
Recommend:
(1) Continue regular solids/thin liquids
(2) General aspiration precautions
(3) Meds as tolerated
(4) ACADEMIC DEAN to sign off. Please reconsult as indicated
--- NOTE | 2024-02-15 12:08 | W.PN.PUL3 ---
Today's Communication / Plan
-
Maintain BIPAP at night, weaning down O2 use, now on 8L
PT, OT--OOB, IS
IV diuresis per cards, ongoing
Abx for LE wound
Further preoperative planning would be high risk--can let us know if he should require anesthesia this admission
Otherwise, can see patient as needed--will sign off at this time, please call with questions
Assessment
-
Patient is a 73-year-old male with previous history of hypertension, hyperlipidemia, CHF admitted to on 01/28/2024 for nonhealing left heel wound. He notes that he had a blister that was broken up and on his left heel and was prescribed a
topical antibiotic which did not improve his symptoms. Vascular was consulted and due to progressive lethargy, there is concern for ongoing sepsis. Underwent urgent debridement of heel on 01/29/2024 and transferred postoperatively to ICU.
Impression:
Unresponsiveness, acute hypoxic respiratory failure status post intubation 01/30/24 --> extubated 02/05/2024 --> now awake but confused at times
Acute on chronic congestive heart failure exacerbation with reduced ejection fraction --> improved and close to dry weight
Wet gangrene of the left heel s/p excisional debridement through bone with lavage and irrigation 01/29/2024 - wound Cx grew MSSA
Nonhealing left heel wound
Nausea/vomiting and diarrhea with flat plate concerning for ileus vs early SBO (likely the former)
Leukocytosis
RAUL, creatinine 1.9 (Cr baseline: approx. 1.2-1.3) - RAUL improved
Hypernatremia (mild) - resolved
DM type II c/b hyperglycemia (HbA1C: 6.4 on 01/29/2024)
Chronic hypercapnic respiratory failure with metabolic alkalosis
Conditions present prior to admission
History of heart failure, ICM worsened LVEF at 30-35% - TTE 09/11/23
Hypertension
Hyperlipidemia
Morbid obesity, BMI 40.4
Left anterior fascicular block, chronic
History of persistent atrial fibrillation on Eliquis
Coronary disease with history of [place] 20+ years ago
History of TIA
Severe sleep apnea, HST AHI 61/78%, failed CPAP 2021
Diabetes
Chronic DJD, back pain
[id number], quit
Chronic cough, COPD/RLD on PFTs, follows at [facility]-Dr Montiel/Chanelle
PAD
Plan
Remains on 8L NC, weaning down
Given patient's chronic hypercapnia likely due to obesity hypoventilation syndrome, he was recommended to continue with BiPAP with sleep
ABG (02/10) shows compensated hypercarbia pH 7.38 and pCO2 62; serum bicarbonate from blood work is 38
Repeat VBG 7. today
Of note, he carries a history of severe obstructive sleep apnea intolerant to CPAP in the past
Recommend outpatient evaluation for sleep disordered breathing given morbid obesity with thick neck
Keep SpO2 >90-94%
Daughter cannot find his old BIPAP device, has requested new set up
CM consult for DME set up
CT head and neck obtained on 01/30/2024 --> bilateral carotid disease noted
Nephrology recs appreciated - trend sCr, I/O and UOP
Troponin peaked at 0.110 on 01/31/2024� cardiology consulted and recommendations appreciated; no need to continue trending troponin
Cardiac history as noted above-Patient follows cardiology (Kim)
Transthoracic echo from 12/12/2023 shows LVEF 35-40% --> echo repeated on 02/04 showed LVEF 35% with severe hypokinesis of the mid�distal
anterior, anteroseptal and apical dahl consistent with a mid LAD infarct; severe LAE
He underwent LHC and RHC on 09/13/2023 showed reduced CI at 1.36 and low PCWP at 13 with slightly elevated PADP at 17mmhg with mild pHTN
(mPAP: 23mmHg)
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
Rate control with goal HR<110bpm
Replete K>4, Mg>2
Remains on IV diuresis per team
Unresponsiveness status post intubation 01/29 --> he was extubated on 02/04
CTA chest from 01/30/2024 shows large bilateral pleural effusions with bilateral mosaic attenuation likely due to interstitial edema, without acute PE
CXR on 02/09/2024 still shows evidence of pleural effusions with subsegmental atelectasis
At risk for reintubation if noncompliant with PAP, family has made him DNR
Diet as per BILLET STRAIGHTENER; continue with aspiration precautions
GI ppx: N/A (continue pepcid as this is a home med)
Aspiration precautions
Non healing would of LLE, on abx for coverage, concern for sepsis --> currently on Ancef + flagyl since 02/03 s/p Unasyn and meropenem
s/p debridement 01/29/24, tissue culture grew MSSA; wound vac
Blood culture negative
Vasc surgery saw pt on 02/01 --> patient is at high risk for limb loss due to extent of heel wound + bone exposure; no acute need for surgical intervention at this point
Given his nausea/vomiting and diarrhea starting on evening of 02/04, ID ordered C-diff (negative) and norovirus stool studies (also negative)
CBC stable
Transfuse if needed to keep Hb >7, platelets >20k
DVT ppx: Eliquis
PT/OT when able
Patient has a follow-up with our pulmonary office on 03/26/[address] Candelaria - I advised him to keep this appointment.
Care team has been able to change status to DNR, would continue GOC discussions
Diagnostic Data
CXR 02/05/2024: Nasrin is not particularly well seen on this projection. Tip of the endotracheal tube likely approximately 1.5 cm above the nasrin, similar to prior. Enteric catheter and left upper extremity PICC in position. Low lung volumes.
Bilateral small pleural effusions and adjacent atelectasis/consolidation.
Chest X-Ray: 01/28/24- No acute cardiopulmonary process.
09/14/23- No active cardiopulmonary disease.
Flat Plate 02/06/2024: Increased mild distention of small bowel, ileus versus at least partial distal small bowel obstruction.
CTA Chest 01/30/2024:Markedly limited study, as detailed above, with no findings to suggest bilateral CENTRAL pulmonary embolism. Large right lower lobe consolidation and moderate right pleural effusion.Left lower lobe subsegmental atelectasis and
small left pleural effusion. Groundglass opacity and mild septal thickening suggesting mild to moderate pulmonary edema. Endotracheal tube with tip in trachea above the nasrin. No pneumothorax.
CT Scan: CHEST 10/18/22- Stable small perifissural pulmonary nodules along the left major fissure. Stable mild small reticulonodular interstitial opacities in the bilateral upper lobes, right > left
CAP 05/04/22- No acute pathology of the chest, abdomen and pelvis identified. Few left upper and lower lobe pulmonary nodules. Bilateral small renal cysts. Bilateral too small to characterize hypodense renal lesions, likely benign cysts. Moderate
fecal material throughout the colon. Mild diverticulosis.
Echo: 12/12/23- Moderately reduced left ventricular systolic function. Estimated left ventricular ejection fraction is 35-40% . Wall motion analysis is limited due to image quality. Mild mitral regurgitation. Compared to the previous report
12/12/2023 findings are similar no significant change previously estimated ejection fraction 35%
PFT's: 03/29/23 FEV1 1.91 L 77%, FVC 2.57 L 75%, ratio 74. TLC 3.63 L 59%, DLCO 60%--moderately severe restriction, mild diffusion impairment
Reports and relevant images were personally reviewed.
-----
Total time spent today was 36 minutes for this encounter. Time includes reviewing laboratory test/imaging results, reviewing pertinent medical records, obtaining and reviewing medical history, performing an appropriate exam, ordering medications,
tests and procedures. Time also includes documentation of this encounter, coordinating patient care and communicating with other healthcare professionals. Total time does not include separately billed tests performed on this date of service.
Subjective Data
-
Date of Service:
Date of Service: February 15, 2024
Chief Complaint: Pulmonary Follow Up
Subjective:
No new events, remains on biPAP at night
8L O2
Objective Data
Data Reviewed
Vital Signs / I&O / Oxygen:
Vital Signs
Temp Pulse Resp BP Pulse Ox
97.2 F 80 22 151/88 100
02/15/24 07:24 02/15/24 08:00 02/15/24 08:00 02/15/24 08:00 02/15/24 09:48
Intake and Output
02/14/24 02/15/24 02/16/24
06:59 06:59 06:59
Intake Total 672 / 672 780 / 780
Output Total 625 / 625 1425 / 1425 850 / 850
Balance 47 / 47 -645 / -645 -850 / -850
SaO2 [CPAP/PSV] 98
SaO2 [A/C] 100
SaO2 100
Nasal Cannula flow liters per 12
minute
Physical Exam
General: Respiratory Distress (mild), Chills (negative), Sweats (negative) and Poor Appetite
HEENT: Normocephalic, Anicteric and Moist Mucous Membranes
Cardiovascular: S1-S2, Regular Rhythm, Rub (negative) and Peripheral Edema (+1 lower extremity pitting edema bilaterally)
Respiratory: Wheeze (negative), Crackles (Bilateral), Rhonchi (negative) and Non-Labored Respirations
GI: Soft, Distended (Abdominal obesity), Non Tender and Normal Bowel Sounds
Neurology: Awake, Alert, No Motor Deficits, Tremors (negative) and Lethargic (confused)
Skin: Warm, Dry and Cyanosis (negative)
Labs/Micro/Reports
Lab Data
02/15/24 05:39
02/15/24 05:39
Laboratory Results
02/15/24
05:39
APTT 90.2 H
[2024-02-15 12:09] LABS: Glucose - Point of Care 195 mg/dl (70-99)
[2024-02-15] MEDS: NOVOLOG FLEXPEN-LOW RESISTANCE 1 UNITS SC ×2 (12:49→17:16)
--- NOTE | 2024-02-15 14:46 | CM ---
Patient seen at bedside in IMU. Patient off of vent and stated that he plans to go to [facility]. Per chart review [facility] home unable to accept patient due to BIPAP need. Patient does not have his own BIPAP. CM will reach out to family to review
options for alternative SNF. CM will continue to follow for discharge planning needs.
Plan;for SNF
[2024-02-15 16:32] LABS: Glucose - Point of Care 154 mg/dl (70-99)
[2024-02-15] MEDS: NOVOLOG FLEXPEN 5 UNITS SC (17:17)
[2024-02-15] MEDS: LIPITOR 80 MG PO (17:17)
[2024-02-15] MEDS: ROXICODONE 5 MG PO (18:23)
[2024-02-15] MEDS: HEPARIN 25000 UNITS/250 ML IV (19:31)
[2024-02-15] MEDS: PEPCID 20 MG PO (20:07)
[2024-02-15 20:44] LABS: Glucose - Point of Care 168 mg/dl (70-99)
[2024-02-15] MEDS: LANTUS 0.2 UNITS SC (22:50)
[2024-02-16] VITALS (21 sets, daily range): BP systolic 97–132; BP diastolic 50–92; PULSE 3–95; O2SAT 95; BMI 35.8
[2024-02-16] MEDS: ANCEF 10 IV ×3 (01:11→17:52)
[2024-02-16 06:20] LABS: Hematocrit 30.6 % (39.0-52.0); Mean Corp Hgb Conc. 29.4 g/dL (33.0-37.0); Mean Corpuscular Hgb 25.4 pg (27.0-31.0); Mean Corpuscular Volume 86.2 fL (80.0-94.0); Mean Platelet Volume 10.7 fL (7.4-10.4); Platelet Count 309 10^3/uL (130-400); Red Blood Cell Count 3.55 10^6/uL (4.70-6.10); Red Cell Dist. Width 20.9 % (11.5-14.5); White Blood Cell Count 9.3 10^3/uL (4.8-10.8)
[2024-02-16 06:51] LABS: APTT 124.1 Sec (23.4-35.0)
--- NOTE | 2024-02-16 06:51 | PTCARENOTE ---
Cared for pt overnight. aaox3 but confused and forgetful at times overnight. Remained on 6LNC before being placed on bipap at night. Wore bipap all night until 0600, then placed back on 6LMF, tolerating well 93%. VIEYRA rest & exertion at times. Q2T.
Afib BBB PVC on monitor. Urinal & incontinent. Changed L heel wound. L picc in place, heparin running. await PTT this am. ivabx. no other issues at this time. VSS BA on.
[2024-02-16 07:04] LABS: Blood Urea Nitrogen 26 mg/dl (9-20); Chloride 89 mmol/L (98-107); Estimated Creatinine Clearance 71 ml/min; Glucose 98 mg/dl (70-99); Potassium 3.4 mmol/L (3.5-5.1); Sodium 138 mmol/L (135-145); eGFR > 60.00
[2024-02-16 07:16] LABS: Carbon Dioxide 38 mmol/L (22-30)
--- NOTE | 2024-02-16 07:35 | PN.DE.MGMTRT ---
Insulin Management
- -
02/16/2024: Diabetes management Follow up:
73 years old male with multiple comorbidities admitted to the hospital on 01/27 with sepsis due to left foot plantar infected ulcer 2/2 diabetic foot ulcer and peripheral vascular disease S/P left heal debridement. Diabetes consult requested on 02/04
for Hyperglycemia.
PMH: HTN, HLD, CAD, PVD, CHF, COPD and T2DM. Was taking Jardiance 10mg daily, Tresiba 45 units daily, metformin 1000mg BID and NovoLog 7-20 units AC. A1C 6.4%, Cr 1.5, eGFR 48.25. 01/30 started on tube feeds contributing to Hyperglycemia. 02/01 was
initiate on CC glycemic protocol, developed hypoglycemia on 02/03 while on insulin drip. Was transitioned off on 02/03 to SQ insulin- HS Lantus 5 units and moderate corrective only by Dr. Marcano.
Glucose has remained elevated since transition, 241 to 415, requiring high doses 3-9 units of corrective insulin.
Pt more alert today able to participate in diabetes discussion, family at bedside. Has resumed eating meals.
Per Vascular surgeon, OR tissue cultures of bone-->Staph aureus (confirming osteomyelitis)
02/15 Glucose improved with the addition of AC novolog 5 units, range 139 to 195. Will continue AC novolog 5 units with corrective insulin and lantus 20 units @ hs.
Discussed with patients nurse.
Diabetes History
- -
Type of Diabetes: 2 requiring insulin
Pre-Admission Diabetes Regimen
02/16/24 02/16/24
05:59 07:29
Creatinine 1.0 Cancelled
Lab Results
Hemoglobin A1c 6.4 % (4.0-5.6) H 01/29/24 07:22
Insulin Pump Settings
IP Diabetes Regimen
02/15/24 02/15/24 02/15/24
11:58 16:20 20:33
Glucose
POC Glucose 195 H 154 H 168 H
02/16/24 02/16/24
05:59 07:29
Glucose 98 Cancelled
POC Glucose
Meal type: Breakfast
Amount consumed: 100%
Patient Education
[2024-02-16 07:36] LABS: Glucose - Point of Care 97 mg/dl (70-99)
[2024-02-16] MEDS: NOVOLOG FLEXPEN-LOW RESISTANCE SC (08:05)
[2024-02-16] MEDS: KCL ELIXIR 40 MEQ PO (08:06)
[2024-02-16] MEDS: LOW STRENGTH ASPIRIN 81 MG TUBE (08:07)
[2024-02-16] MEDS: TOPROL XL 50 MG PO ×2 (08:08→20:01)
[2024-02-16] MEDS: LASIX 40 MG IV ×2 (08:08→16:11)
[2024-02-16] MEDS: FLAGYL 500 MG PO ×2 (08:08→20:01)
[2024-02-16] MEDS: DESENEX/MITRAZOL/ZEASORB 1 APPLIC TOPICAL ×2 (08:08→20:11)
[2024-02-16 08:15] LABS: Glucose - Point of Care 98 mg/dl (70-99)
[2024-02-16] MEDS: NOVOLOG FLEXPEN 5 UNITS SC ×2 (08:17→12:34)
--- NOTE | 2024-02-16 10:12 | W.PN.HOSP.TC ---
Today's Communication/Plan
-
Continue IV diuresis.
Continue antibiotics.
Continue monitoring weight, I's and O's and renal function.
Continue BiPAP in the night.
Assessment / Plan
Assessment / Plan
ssessment -73 Yo M with PMHx significant for peripheral vascular disease, CKD stage IIIb, CAD, permanent A-fib, TIA, hypertension, hyperlipidemia, insulin-dependent type 2 diabetes mellitus, with multiple comorbidities presented to the hospital with
sepsis due to left foot plantar infected diabetic foot ulcer with underlying PAD.
Plan -
Acute on Chronic HFrEF -
Likely secondary to sepsis in the setting of pre-existing CAD and heart failure.
Exacerbated yesterday after initiation of IVF for his hypernatremia.
X ray showed increased pleural effusion and mild interstitial edema.
Gentle diuresis today. Reassess him on day to day basis for diuresis based on his volume status.
Cardiology on board. Appreciate input
Most recent echocardiogram-09/26-EF 30 to 35%.
Continue GDMT as tolerated. Cardiology added metoprolol.
Patient had 13 seconds of NSVT and metoprolol dose bumped to 50 on 02/10/24.
Patient's dry weight has likely changed given his Chronic illness and intubation. Suspect dry weight is much lower than 105kgs. IV Lasix twice daily. CO2 levels improving.
Current weight-103.5 kgs, renal function stable with BUN-29, serum creatinine at 1.0, EGFR greater than 60.
Trend daily weights, I's and O's.
Continue to trend renal function
Severe sepsis-resolved.
Secondary to diabetic left plantar foot ulcer with underlying peripheral vascular disease.
Status post sharp excisional debridement by vascular surgery team on 01/28, lactic acid levels on 01/29 at 5.4.
Left heel bone biopsy growing MSSA, patient was initially started on IV cefepime and vancomycin then transition to meropenem and vancomycin and then to Unasyn.
ID on board, appreciate inputs.
Patient is currently on cefazolin and metronidazole.
BKA of his left foot by vascular team scheduled tentatively for for 02/13/2024 on hold procedure held.
Ventilator dependent respiratory failure- extubated on 02/05/24.
Acute on chronic hypoxic respiratory failure.
Patient is back on BiPAP. Although there is some pulmonary component to it, suspect BiPAP and oxygen requirement secondary to heart failure.
CT x-ray evident for pulmonary edema. Chest x-ray showed worsening pleural effusion and pulmonary edema.
Also history of PHTN, untreated, precapillary likely secondary to ERICK.
Given patient's history of pulmonary hypertension and untreated ERICK, his baseline O2 saturation is probably 88-92..
Wean off mid flow to keep his oxygen saturations at 88-92.
Overnight oxygen requirement came down to 6 L on mid flow from 12 L yesterday.
Advised patient to stay compliant with BiPAP, and incentive spirometry
Currently not medically optimized for surgery, planned surgery next week.
Shock-01/29.
Unclear etiology whether septic versus cardiogenic.
CT PE negative for pulmonary embolism, however there is some evidence for mild to moderate pulmonary edema.
[place] [address] [place] admission, reduced to 6210 on 02/07/24. His repeat proBNP levels on 02/11/2024 at 7400. Elevated lactic acid levels at 5.4 upon admission.
Patient is off of sedatives and pressors -for more than a week now.
Partial small bowel obstruction versus ileus.
Surgery on board, recommended to continue advancing diet as tolerated and monitor for symptoms.
Resolved.
RAUL on CKD stage 3b
likely secondary to cardiorenal syndrome.
Cr down to 1.5, baseline is at 1.2 . Currently at 1.3
Continue to trends weights, I and O, and
Patient is currently at 104.5 kgs. gentle diuresis per nephro.
Currently patient is alkalotic and hypercarbic.
Avoid nephrotoxic agents. Discontinued bicarbonate yesterday.
Renal on board, appreciate inputs.
Peripheral vascular disease-
No plan for staged revascularization procedure due to clinical instability.
Patient is currently on Eliquis.
Status post left lower extremity arteriogram and stent to SFA, angioplasty to PT per vascular surgery in 09/26.
Permanent A-fib
On metoprolol.
[id number] score-Transitioned back to Eliquis from heparin.
Questionable PVCs on telemetry in the a.m. today. Obtain an EKG.
Hypernatremia -
likely secondary to hemoconcentration from Diuresis.
Speech eval - NPO after intubation yesterday.
Recommended regular diet today.
recommend adequate oral hydratipon.
Discontinue tube feeds.
Reassess for hypernatremia tomorrow.
Leukocytosis-
White blood cell count trending up again.
Suspect secondary to partial small bowel obstruction, not considered as inadequate response to antibiotics.
ID on board, appreciate inputs.
Type 2 diabetes mellitus-
HbA1c at 6.4.
Jtjqbhmci-Stpgxfz-72 units daily. Developed hypoglycemia on Tresiba - 02/07/24, diabetes nurse practitioner consulted for diabetes education and management.
Tube feeds discontinued. Overnight insulin requirement was low.
Continue to monitor glucose with tight glycemic control.
Elevated troponins
Type II demand ischemia
Troponins trended down on 02/02.
Cardiology on board.
Previous history of coronary artery disease.
/Hospital acquired delirium
Delrium precautions
Reorientation
DUe to resp status would avoid melatonin and other sedative
DVT prophylaxis-on Eliquis
CODE STATUS DNR
Conditions [employer]OVELTY -
CAD-continue his home meds-aspirin.
Hypertension-continue lisinopril.
Hyperlipidemia-continue Lipitor.
TIA
Asthma
Morbid obesity
Hypoglycemia
Investigations -
Chest X-Ray:
02/07/24 - Slightly increased size of the small right pleural effusion with adjacent atelectasis. There is a likely trace left pleural effusion with adjacent atelectasis, similar to prior.
Mild interstitial edema.
02/05/24 -
As above, flip is not particularly well seen on this projection. Tip of the endotracheal tube likely approximately 1.5 cm above the flip, similar to prior. Enteric catheter and left upper extremity PICC in position.
Low lung volumes. Bilateral small pleural effusions and adjacent atelectasis/consolidation.
01/28/24- No acute cardiopulmonary process.
09/14/23- No active cardiopulmonary disease.
Abdomen X ray -
02/01/24- Nasogastric tube is seen with tip in the distal stomach. Study is otherwise stable.
CTA - 01/30/24 -
Scattered mild to moderate calcified plaque of the common carotid arteries, bilaterally. Bilateral bulb calcified plaque and calcified plaque at the ICA origin and proximal internal carotid arteries.
Distal left common carotid artery estimated luminal diameter reduction of 65%. Proximal left ICA estimated luminal diameter reduction of approximately 60%.
Proximal right ICA estimated luminal diameter reduction of approximately 50%.
Bilateral cavernous ICA calcified plaque with estimated luminal diameter reduction of less than 50%.
Normal variant absent right anterior cerebral artery A1 segment, with the A2 segment supplied by a patent anterior to be encasing artery.
Otherwise, no intracranial cerebral artery plaque, stenosis, occlusion, or aneurysm.
The vertebral arteries are patent. Patent basilar artery.
Moderate right and small left pleural effusion. Pulmonary parenchymal consolidation, right greater than left, atelectasis versus pneumonia. Mild superior mediastinal adenopathy.
CT Scan: CHEST 10/18/22- Stable small perifissural pulmonary nodules along the left major fissure. Stable mild small reticulonodular interstitial opacities in the bilateral upper lobes, right greater than left.
CAP 05/04/22- No acute pathology of the chest, abdomen and pelvis identified. Few left upper and lower lobe pulmonary nodules. Bilateral small renal cysts. Bilateral too small to characterize hypodense renal lesions, likely benign cysts. Moderate
fecal material throughout the colon. Mild diverticulosis.
Echo: 12/12/23- Moderately reduced left ventricular systolic function. Estimated left ventricular ejection fraction is 35-40% . Wall motion analysis is limited due to image quality. Mild mitral regurgitation.
Compared to the previous report 12/12/2023 findings are similar no significant change previously estimated ejection fraction 35%
PFT's: 03/29/23 FEV1 1.91 L 77%, FVC 2.57 L 75%, ratio 74. TLC 3.63 L 59%, DLCO 60%--moderately severe restriction, mild diffusion impairment
Anticipated Discharge: > 48 hours
Subjective/Interval History
-
Date of Service: February 16, 2024
Patient is doing much better today. Overnight oxygen requirement went down from 12 L to 6 L on mid flow nasal cannula. Patient is also losing weight actively without renal injury over the last several days.
Objective Data
-
Labs:
Laboratory Results
02/16/24 02/16/24 02/16/24
05:59 06:32 07:29
WBC 9.3
Hgb 9.0 L
Hct 30.6 L
Plt Count 309
APTT 124.1 H
Sodium 138 Cancelled
Potassium 3.4 L Cancelled
Chloride 89 L Cancelled
Carbon Dioxide 38 H Cancelled
BUN 26 H Cancelled
Creatinine 1.0 Cancelled
Glucose 98 Cancelled
Calcium 8.0 L Cancelled
02/16/24
13:15
WBC
Hgb
Hct
Plt Count
APTT Pending
Sodium
Potassium
Chloride
Carbon Dioxide
BUN
Creatinine
Glucose
Calcium
Vital Signs:
Vital Signs
Temp Pulse Resp BP Pulse Ox
97.4 F 80 22 119/56 95
02/16/24 03:33 02/16/24 06:00 02/16/24 06:00 02/16/24 06:00 02/16/24 07:47
I&O
02/15/24 02/16/24 02/17/24
06:59 06:59 06:59
Intake Total 780 / 780
Output Total 1425 / 1425 1500 / 1500
Balance -645 / -645 -1500 / -1500
Review of Systems
-
History Source: Patient
Constitutional: Reports No Symptoms
EENT: Reports No Symptoms Reported
Respiratory: Reports Cough and Trouble Breathing
Cardiac: Reports No Symptoms
Abdomen/GI: Reports No Symptoms
Breast: Reports No Symptoms
Genitourinary: Reports No Symptoms
Musculoskeletal: Reports No Symptoms
Skin: Reports No Symptoms
Neuro: Reports No Symptoms
Endocrine: Reports No Symptoms
Hematologic / Lymphatic: Reports No Symptoms
Allergy / Immunology: Reports No Symptoms
Physical Exam
-
General: Comfortable
HEENT: Moist Mucous Membranes and PERRLA
Respiratory: Clear to Auscultation and Crackles (And lower lobes); Negative Wheezes, Rales or Rhonchi
Cardiac: Regular Rhythm and S1/S2; Negative Murmur, Rub or Gallop
GI: Soft, Nontender, Normal Bowel Sounds and Other (Last bowel movement in the a.m. today)
Musculoskeletal: No Clubbing, No Cyanosis and No Edema
Neuro: Awake and No Motor Deficits
Psych: Calm
Data Reviewed
-
Labs: Labs Reviewed by me, Discussed with Physician and Discussed with Nurse
Old Records: Reviewed
--- NOTE | 2024-02-16 10:22 | W.PN.NEPH.PH ---
Today's Communication / Plan
-
sign off
Assessment/Plan
-
Impression:
RAUL
CKD 3b (1.6)
Metabolic acidosis
Left plantar foot ulceration with gangrenous changes s/p debridement
Ischemic cardiomyopathy EF 30%
History of hypertension
History of diabetes
Profound peripheral vascular disease
Diabetes
Plan:
continue lasix
creatinine at 1.0
metabolic alkalosis stable
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
No need for Diamox currently
follow BMP
Possible amputation next week
we will sign off for now
-
-
Date of Service: February 16, 2024
CC / HPI / ROS
-
Chief Complaint:
RAUL with CKD
History of Present Illness:
cr down to 1.0, sodium stable at 138
non oliguric with lasix
Hemodynamically stable
Metabolic alkalosis stable at 38
P.o. intake limited
Review of Systems:
still on high flow O2
wt down
no cp at rest
Nonoliguric
Labs
-
Labs:
WBC 9.3 10^3/uL (4.8-10.8) 02/16/24 05:59
RBC 3.55 10^6/uL (4.70-6.10) L 02/16/24 05:59
Hgb 9.0 g/dL (13.0-18.0) L 02/16/24 05:59
Hct 30.6 % (39.0-52.0) L 02/16/24 05:59
Plt Count 309 10^3/uL (130-400) 02/16/24 05:59
Sodium Cancelled 02/16/24 07:29
Potassium Cancelled 02/16/24 07:29
Chloride Cancelled 02/16/24 07:29
Carbon Dioxide Cancelled 02/16/24 07:29
BUN Cancelled 02/16/24 07:29
Creatinine Cancelled 02/16/24 07:29
eGFR Cancelled 02/16/24 07:29
Glucose Cancelled 02/16/24 07:29
Calcium Cancelled 02/16/24 07:29
Phosphorus 3.7 mg/dl (2.5-4.5) 02/07/24 04:41
Ntq-S-Iemazxrxwuk Pept 7400 pg/ml 02/11/24 03:56
Albumin 2.7 g/dl (3.5-5.0) L 02/07/24 04:41
Physical Exam
-
Vital Signs:
Vital Signs
Temp Pulse Resp BP Pulse Ox
97.4 F 80 22 119/56 95
02/16/24 03:33 02/16/24 06:00 02/16/24 06:00 02/16/24 06:00 02/16/24 07:47
Cardiovascular:: Regular rate and rhythm
Respiratory:: Bilateral: Coarse
Lung Excursion:: Normal
Abdomen:: Nontender and Soft
Bowel Sounds:: Normal
Extremity Edema:: +1: Bilateral:
--- NOTE | 2024-02-16 10:29 | W.PN.ID1 ---
Date of Service
Date of Service: February 16, 2024
Today's Communication
- c/w cefazolin and metronidazole
- has PICC
- planned for amputation of foot when medically optimized, then would stop antibiotics; alternatively stop antibiotics 03/09/24 whichever is sooner
Assessment / Plan
Osteomyelitis of the L heel
Left heel ulcer with wet gangrene s/p debridement to bone
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
RAUL on CKD
Class II obesity
- 01/28 tissue culture with MSSA, no anaerobic culture done
- c/w cefazolin and metronidazole
- has PICC
- planned for amputation of foot when medically optimized, then would stop antibiotics; alternatively stop antibiotics 03/09/24 whichever is sooner
����������������������������������������������������������
Chief Complaint
-: Other (calceneal osteomyelitis, L foot)
Subjective / Review of Systems
afebrile
bp stable
tolerating current therapies
no new complaints
Vital Signs / Physical Exam
Vital Signs
Vital Signs
Temp Pulse Resp BP Pulse Ox
97.4 F 80 22 119/56 95
02/16/24 03:33 02/16/24 06:00 02/16/24 06:00 02/16/24 06:00 02/16/24 07:47
Physical Exam
Constitutional: No Acute Distress
Cardiovascular: Regular Rate and S1/S2; Negative Murmur or Rub
Pulmonary: Clear and Symmetric; Negative Wheezes or Rales
Gastrointestinal: Soft, Non Tender, Non Distended and Normal Bowel Sounds
Skin: Warm and Dry; Negative Rash or Jaundice
Objective Data
Lab Data
Lab Results
02/16/24 05:59
02/16/24 07:29
ESR 95 mm/hour (0-20) H 01/28/24 07:14
PT 27.4 Sec (11.4-14.6) H 01/31/24 08:53
INR 2.50 01/31/24 08:53
APTT 124.1 Sec (23.4-35.0) H 02/16/24 06:32
Estimated Creat Clear Cancelled 02/16/24 07:29
Lactic Acid 1.1 mmol/L (0.7-2.0) 01/31/24 04:35
Total Bilirubin 0.5 mg/dl (0.2-1.3) 02/07/24 04:41
AST 34 U/L (17-59) 02/07/24 04:41
ALT 15 U/L (0-50) 02/07/24 04:41
Alkaline Phosphatase 160 U/L (38-126) H 02/07/24 04:41
C-Reactive Protein > 270.00 mg/L (0.0-10.00) H 01/28/24 07:41
Most recent labs reviewed.
Micro Results:
02/06/24 10:25 C. difficile GDH Antigen & Toxins - Final
Feces/Stool Negative for toxigenic C.difficile
- Final
Negative for Norovirus GI and GII.
01/31/24 12:12 Blood Culture - Final
Blood/Venous No Growth - Final Report
01/31/24 11:15 Blood Culture - Final
Blood/Venous No Growth - Final Report
01/28/24 12:25 Blood Culture - Final
Blood/Venous No Growth - Final Report
01/29/24 15:30 Tissue Culture - Final
Foot - Left S aureus-Methicillin Sensitive
Gram Stain - Final
01/28/24 14:04 MRSA Screen - Final
Nose No Methicillin Resistant Staphylococcus aureus isolated.
--- NOTE | 2024-02-16 10:50 | W.PN.CD ---
Today's Communication / Plan
-
Remains on 5 to 6 L. Patient was on home O2 per his report.
Chest ultrasound with small to moderate pleural effusion 02/13/2024.
Continue with IV diuretics with monitoring of renal function and weights and will check follow-up chest x-ray
Wean O2 as tolerated
Impression / Plan
-
Impression/Plan: 73 y/o male (known to Dr. Alvarez, his primary [employer]le [employer]iner) with HTN, HLD, IDDM, COPD, permanent atrial fibrillation (on apixaban), CAD with ICMO, PAD with prior LSFA endovascular intervention, and obesity admitted with
non-healing left foot ulcer/wet gangrene complicated by sepsis now s/p left heal debridement, subsequently complicated by VDRF and hypotension requiring pressor support.
HFrEF, LVEF 35% 02/2024
- goal weight has been felt to be 105.7kg based on RHC performed 09/2023; but now dry weight is now lower with nutritional change
-U/S 02/13/2024 did not favor thoracentesis (small-mod bilat effusions)
- continue Lasix 40 IV BID
-close monitoring of labs, tele, weight
- U/S 02/13/2024 did not favor thoracentesis (small-mod bilat effusions)
- continue Toprol XL: increase to 50mg bid
- he likely needs another surgery
-post op, assess to add back lisinopril, SGLT2i, aldactone
Significant complex lung disease
- Significant CO2 retention
- Pulm consulted
Contracture alkalosis
- May need Diamox
Left heal wet gangrene/septic shock/ osteomyelitis
-Pre op assessment
- Patient will likely require amputation.
- Increased risk due to recent heart failure, cardiomyopathy, CAD and afib.
- Considering the importance of surgery with sepsis and osteo, it is reasonable to proceed with surgery this admission (high, but not prohibitive, risk)
- on heparin drip due to prolonged eliquis hold
Ischemic cardiomyopathy
-Chronic.
-LVEF = 35%.
-GDMT: will hold GDMT other than Toprol XL pre-operative pending vascular surgery and reintroduce post-operatively as above
Nonsustained VT
- 13 seconds over the weekend.
- Increased BB
- Later can consider primary prevention ICD
Permanent Atrial fibrillation
-rate control: Toprol XL
-AC: heparin drip, then back to eliquis post op
Coronary artery disease, old DC, chronically occluded LAD.
-continues on ASA/statin
Subjective:
SOB and edema better.
DATA:
Echo 02/05/2024: Left ventricular ejection fraction is 35%; no significant valvular disease.
Cath 09/13/2023:
1. Right dominant circulation with a 50% lesion in the distal third of the RPDA, a diffusely diseased, small first obtuse marginal, a 30% lesion in the mid ramus, a 40% lesion in the origin of the first diagonal and a chronic total occlusion of the
mid LAD (known since cardiac catheterization in 1999).
2. Normal filling pressures (LVEDP = 10 mmHg, PCWP = 13 mmHg at 105.7 kg).
3. Severely impaired cardiac function (cardiac index = 1.36 L/min/m�, a VO2 difference 8.63 volume percent).
4. Mild precapillary pulmonary hypertension (mean PA pressure = 23 mmHg, PVR = 3.44 Moser units).
5. Significantly elevated peripheral vascular resistance (1787 dynes*seconds*cm^5).
Physical Exam
Vital Signs/Labs
Vital Signs
Temp Pulse Resp BP Pulse Ox
97.4 F 80 22 119/56 95
02/16/24 03:33 02/16/24 06:00 02/16/24 06:00 02/16/24 06:00 02/16/24 07:47
02/15/24 02/16/24 02/17/24
06:59 06:59 06:59
Actual Weight 103.5 kg 100.7 kg
02/16/24 05:59
02/16/24 07:29
PT 27.4 Sec (11.4-14.6) H 01/31/24 08:53
INR 2.50 01/31/24 08:53
APTT 124.1 Sec (23.4-35.0) H 02/16/24 06:32
Magnesium 1.8 mg/dl (1.6-2.3) 02/13/24 03:09
Triglycerides 150 mg/dl (10-149) H 02/05/24 03:31
01/31/24 02/07/24 02/11/24
09:09 04:41 03:56
Ild-W-Stoapvilono Pept [id number] 6410 7400
Physical Exam
Constitutional: Comfortable
Cardiovascular: Rhythm/rate is irregular
Respiratory: Wheeze Absent and Rhonchi Absent
GI: Soft
Neuro/Psych: Alert
Data Reviewed
-
Date of Service: February 16, 2024
Medical Decision Making: Reviewed Test Results
Echo: Report Reviewed by me
X-Ray/CT/US/MRI/NUC/PET: Report Reviewed by me
Labs: Labs Reviewed by me
--- NOTE | 2024-02-16 10:58 | W.PN.UPDATE ---
Update Note
Progress Note Update
I saw and evaluated the patient. I reviewed the resident�s note and agree with findings and plan as documented in the resident�s note.
Denies any new complaints.
Gen: NAD, awake and alert, NCAT
Neck: supple.
CV: Continues to remain irreg/irreg, +S1/S2, no m/r/g.
Resp: Rales in the right base, decreased breath sounds in the left base
Skin: No rashes.
Neuro: CN 2-12 intact, nonfocal
Psych: normal mood and affect
Acute on chronic hypoxemic respiratory failure requiring intubation/mechanical ventilator:
-due to acute on chronic HFrEF with known EF of 35%, NYHA class III-IV
-now extubated
-note, at one point was on IVFs for hypernatremia. Then pt was diuresed with IV Lasix which continues. Wts decreasing.
-overnight 02/07-02/08 patient was noncompliant with NC O2 (removed NC O2) and desaturated to the 40s. He was placed on BiPAP but was unable to tolerate. Was weaned to 15L midflow.
-02/13/24AM, pt noncompliant with BIPAP and desaturated to 60s. Then agreed to be compliant with BIPAP and ABG improved (pH and PCO2).
-cont BIPAP HS
-as per prior discussion with Dr. Mcintosh, no benefit to RHC at this moment.
-Dry weight likely lower than prior and the current driving force of the patient's respiratory failure is acute on chronic HFrEF at this time.
-Cont Lasix 40mg IV BID. Weight decreasing daily. Cr remains stable. Check CXR.
-currently on 6L midflow (down from 12L yesterday), NOT MEDICALLY OPTIMIZED for OR but suspect he will be on 02/19/24.
Severe sepsis:
-due to L foot plantar ulcer with osteomyelitis
-Family initially opted for salvage of the extremity to avoid amputation, now plans for amputation this week
-cont Ancef/Flagyl as per ID
-cont heparin gtt preop.
Other problems:
Primary respiratory acidosis with secondary metabolic alkalosis
Permanent atrial fibrillation: cont BB/Eliquis
RAUL on CKD3b, resolved
DM2: a1c 6.4%, SSI/accuchecks
Hospital acquired delirium, supportive care
Obesity due to excess calories
Pt's daughters updated at bedside.
DNR/heparin gtt
Total time spent on today's encounter was 50 minutes which included time spent in counseling the patient/family regarding diagnosis and treatment plan as listed above, goals of care, and symptom management. Case was discussed with nursing staff,
specialists, and care coordinators/case management. All labs and imaging personally reviewed by me. Remainder the time spent in detailed review of previous records, lab data, imaging, and other medical provider documentation.
[2024-02-16 12:17] LABS: Glucose - Point of Care 254 mg/dl (70-99)
[2024-02-16] MEDS: NOVOLOG FLEXPEN-LOW RESISTANCE 3 UNITS SC (12:34)
[2024-02-16 13:52] LABS: APTT 55.9 Sec (23.4-35.0)
--- NOTE | 2024-02-16 15:55 | PTCARENOTE ---
Addendum entered by Jihan [place] RN 02/16/24 16:04:
Dr Carter entered order to transfer to telemetry; made aware that patient cannot go to telemetry if requiring bipap.
Original Note:
Assumed care of patient at beginning of this shift from previous RN with O2 6l in use. Patient's 2 daughters up to see patient and talked about him going on a schedule of napping with the bipap in the afternoon so that he could then be awake for the
evening and sleep at night. RT placed patient on bipap and he napped for approx 1hr, then asked to come off bipap. RT removed and placed back on 6L but POx dropped to high 70s. RT in room, along with this RN, and O2 increased to 10L. POx still in
mid 80s with patient looking drowsy. He denied he was tired and asked for a peanut butter and jelly sandwich. Explained to patient that RT was placing patient back on bipap. Current settings 21/10 with 12L; initially maintaining POX 91-92%, but
currently 95%. Still drowsy but arousable and speaking. Daughter at bedside. Dr Carter and Dr Greer made aware. Stat ABGs ordered by Dr Carter; RT in drawing at this time. CXR also ordered. POx 93%. Daughter and patient updated.
[2024-02-16 16:10] LABS: B.E. 20.5 mmol/L; PCO2 61 mmHg (35-48); PO2 69 mmHg (83-108); pH 7.49 (7.35-7.45)
[2024-02-16 16:13] LABS: HCO3 46.5 mmol/L (21-28)
--- NOTE | 2024-02-16 16:56 | CM ---
Patient who was extubated 02/04, S/P left heel debridement. Plan amputation left foot when medically optimized. O2 6L. BiPAP. Receiving IV Abx, IV Lasix, Heparin gtt. PT/OT recommend skilled rehab.
CM continuing to follow.
No merit to SNF planning at this time, as date of surgery still undetermined, post op needs not yet known, and SNF availabilities will continue to change.
Plan follow respiratory needs including need for O2 & BiPAP at d/c.
Plan probable SNF.
[2024-02-16] MEDS: DIAMOX 250 MG PO (17:27)
[2024-02-16] MEDS: NOVOLOG FLEXPEN-LOW RESISTANCE 1 UNITS SC (17:59)
[2024-02-16 18:10] LABS: Glucose - Point of Care 192 mg/dl (70-99)
--- NOTE | 2024-02-16 18:13 | PTCARENOTE ---
Addendum entered by Jihan [place] RN 02/16/24 18:15:
Lipitor not given at this time d/t continued bipap; will report off to night club manager to give if patient able to come off bipap. Mealtime insulin not given as patient is not eating dinner d/t resp status.
Original Note:
ABGs and CXR completed with results to Dr Carter and Dr Edward. Patient currently with improved mentation, no happy to continue to wear bipap. POx 98-100%. Dr Edward made aware; instructed not to remove bipap at this time; she entered
BMP to be drawn at 20:00. Daughter remains at bedside.
[2024-02-16] MEDS: NOVOLOG FLEXPEN SC (18:16)
[2024-02-16] MEDS: HEPARIN 25000 UNITS/250 ML IV (19:57)
[2024-02-16] MEDS: LIPITOR 80 MG PO (20:01)
[2024-02-16 21:18] LABS: APTT 74.8 Sec (23.4-35.0)
[2024-02-16 21:28] LABS: Glucose - Point of Care 184 mg/dl (70-99)
[2024-02-16 21:30] LABS: Blood Urea Nitrogen 22 mg/dl (9-20); Calcium 8.1 mg/dl (8.4-10.2); Chloride 87 mmol/L (98-107); Estimated Creatinine Clearance 59 ml/min; Glucose 157 mg/dl (70-99); Potassium 4.1 mmol/L (3.5-5.1); Sodium 136 mmol/L (135-145); eGFR > 60.00
[2024-02-16] MEDS: LANTUS 0.2 UNITS SC (21:37)
[2024-02-16] MEDS: PEPCID PO (21:38)
[2024-02-16 21:51] LABS: Carbon Dioxide 39 mmol/L (22-30)
--- NOTE | 2024-02-16 21:53 | PTCARENOTE ---
Rec'd pt at change of shift, pt on BiPAP. Maintaining SaO2 >92%. Pt and family asking if pt can come off BiPAP to eat and drink. This RN was told in report that resident ordered previous RN to keep BiPAP mask in place. This RN and RT removed mask
just long enough to provide HS medications and several sips of water, mask then replaced. This RN continues to update family at bedside on current POC. Pt agreeable to mask at this time, but does remain slightly confused regarding time and POC.
Daughter plans to stay overnight at bedside. Labs drawn per provider order. Heparin gtt therapeutic at this time, see worklist. Call castellon within reach, bed alarm in place, medsitter at bedside for pt safety.
[2024-02-17] VITALS (18 sets, daily range): BP systolic 86–131; BP diastolic 38–87; PULSE 3–75
[2024-02-17] MEDS: ANCEF 10 IV ×3 (01:54→16:46)
--- NOTE | 2024-02-17 02:54 | PTCARENOTE ---
Pt with 13 beat run of VT, CARDIOLOGY PHYSICIAN Charity notified via TT, awaiting orders. Pt asymptomatic, resting in bed with BiPAP in place, VSS. Daughter remains at bedside.
[2024-02-17] MEDS: MAGNESIUM SULFATE 102 GRAMS IV (03:22)
[2024-02-17 03:58] LABS: APTT 111.7 Sec (23.4-35.0)
[2024-02-17 04:57] LABS: B.E. 19.1 mmol/L; O2 Saturation % 97.4 % (94-98); PCO2 59 mmHg (35-48); PO2 80 mmHg (83-108); pH 7.49 (7.35-7.45)
[2024-02-17 04:59] LABS: O2 Therapy bipap
[2024-02-17 05:09] LABS: Blood Urea Nitrogen 21 mg/dl (9-20); Chloride 89 mmol/L (98-107); Estimated Creatinine Clearance 59 ml/min; Glucose 111 mg/dl (70-99); Potassium 3.7 mmol/L (3.5-5.1); Sodium 138 mmol/L (135-145); eGFR > 60.00
[2024-02-17 05:28] LABS: Carbon Dioxide 37 mmol/L (22-30)
[2024-02-17 07:37] LABS: Glucose - Point of Care 102 mg/dl (70-99)
--- NOTE | 2024-02-17 08:00 | PTCARENOTE ---
Assumed care of patient this AM. Patient wore BIPAP all night. Respiratory therapist place him on 6L midflow oxygen. Spo2 is 92%-96% at rest in bed. Heparin drip is at 1100 units 11 mls/hr. Last PTT 111.7. Next PTT is due at 10:30AM. Night RN
reported that patient was up the whole night.
--- NOTE | 2024-02-17 08:05 | W.PN.UPDATE ---
Update Note
Progress Note Update
I saw and evaluated the patient. I reviewed the resident�s note and agree with findings and plan as documented in the resident�s note.
Denies any new complaints.
Gen: remains NAD, awake and alert, NCAT
Neck: supple.
CV: irreg/irreg, +S1/S2, no m/r/g.
Resp: CTAB anteriorly
Skin: No rashes.
Neuro: CN 2-12 intact, nonfocal
Psych: normal mood and affect
Acute on chronic hypoxemic respiratory failure requiring intubation/mechanical ventilator:
-due to acute on chronic HFrEF with known EF of 35%, NYHA class III-IV as well as underlying COPD and likely ERICK/OHS
-on PRN NC O2 at home
-now extubated
-cont BIPAP HS
-as per prior discussion with Dr. Mcintosh, no benefit to RHC at this time
-Dry weight likely lower than prior and the current driving force of the patient's respiratory failure is acute on chronic HFrEF at this time.
-CXR 02/16/24: Parenchymal opacity within the mid to lower lungs bilaterally, probably slightly improved from most recent radiograph of February 12, 2024.
-Cont Lasix 40mg IV BID. Weight decreasing daily. Cr remains stable.
-currently on 6L midflow. It's possible the patient's oxygen requirements will not improved any further and, if that is the case, would recommend proceeding with surgery knowing that the surgery would be an extremely high risk procedure but that
ultimately, if he does not have left lower extremity amputation, that that in itself would be fatal.
Severe sepsis:
-due to L foot plantar ulcer with osteomyelitis
-Family initially opted for salvage of the extremity to avoid amputation, now plans for amputation this week
-cont Ancef/Flagyl as per ID
-cont heparin gtt preop
Other problems:
Primary respiratory acidosis with secondary metabolic alkalosis
Permanent atrial fibrillation: cont BB/Eliquis
RAUL on CKD3b, resolved
DM2: a1c 6.4%, SSI/accuchecks
Hospital acquired delirium, supportive care
Obesity due to excess calories
Pt's updated at bedside.
DNR/heparin gtt
Total time spent on today's encounter was 51 minutes which included time spent in counseling the patient/family regarding diagnosis and treatment plan as listed above, goals of care, and symptom management. Case was discussed with nursing staff,
specialists, and care coordinators/case management. All labs and imaging personally reviewed by me. Remainder the time spent in detailed review of previous records, lab data, imaging, and other medical provider documentation.
--- NOTE | 2024-02-17 08:08 | RESPNOTE ---
Respiratory: patient taken off Bilevel @0748 placed on 6 LPM mid-flow SpO2 94%. Patient awake alert, responding appropriately. RN at bedside.
--- NOTE | 2024-02-17 08:27 | W.PN.HOSP.TC ---
Today's Communication/Plan
-
Continue IV diuresis.
Diamox in the morning, add 3 more doses and stop.
Assessment / Plan
Assessment / Plan
Assessment -73 Yo M with PMHx significant for peripheral vascular disease, CKD stage IIIb, CAD, permanent A-fib, TIA, hypertension, hyperlipidemia, insulin-dependent type 2 diabetes mellitus, with multiple comorbidities presented to the hospital
with sepsis due to left foot plantar infected diabetic foot ulcer with underlying PAD.
Plan -
Acute on Chronic HFrEF -
Likely secondary to sepsis in the setting of pre-existing CAD and heart failure.
Exacerbated yesterday after initiation of IVF for his hypernatremia.
X ray showed increased pleural effusion and mild interstitial edema.
Gentle diuresis today. Reassess him on day to day basis for diuresis based on his volume status.
Cardiology on board. Appreciate input
Most recent echocardiogram-09/26-EF 30 to 35%.
Continue GDMT as tolerated. Cardiology added metoprolol.
Patient had 13 seconds of NSVT and metoprolol dose bumped to 50 on 02/10/24.
Patient's dry weight has likely changed given his Chronic illness and intubation. Suspect dry weight is much lower than 105kgs. Currently alkalotic.
gentle diuresis over the weekend. Diamox for 3 more doses and stop.
Current weight-100.7 kgs, renal function stable with BUN-22, serum creatinine at 1.2, EGFR greater than 60.
Trend daily weights, I's and O's.
Continue to trend renal function
Severe sepsis-resolved.
Secondary to diabetic left plantar foot ulcer with underlying peripheral vascular disease.
Status post sharp excisional debridement by vascular surgery team on 01/28, lactic acid levels on 01/29 at 5.4.
Left heel bone biopsy growing MSSA, patient was initially started on IV cefepime and vancomycin then transition to meropenem and vancomycin and then to Unasyn.
ID on board, appreciate inputs.
Patient is currently on cefazolin and metronidazole.
BKA of his left foot by vascular team scheduled tentatively for for 02/13/2024 on hold procedure held.
Ventilator dependent respiratory failure- extubated on 02/05/24.
Acute on chronic hypoxic respiratory failure.
Patient is back on BiPAP. Although there is some pulmonary component to it, suspect BiPAP and oxygen requirement secondary to heart failure.
CT x-ray evident for pulmonary edema. Chest x-ray showed worsening pleural effusion and pulmonary edema.
Also history of PHTN, untreated, precapillary likely secondary to ERICK.
Given patient's history of pulmonary hypertension and untreated ERICK, his baseline O2 saturation is probably 88-92..
He continues to go to the spine itself being on BiPAP and oxygen requirement going down to his 6 L on mid flow. Try to wean off med floor to keep his oxygen saturations at 88-92
Advised patient to stay compliant with BiPAP, and incentive spirometry
Currently not medically optimized for surgery, planned surgery next week.
Shock-01/29.
Unclear etiology whether septic versus cardiogenic.
CT PE negative for pulmonary embolism, however there is some evidence for mild to moderate pulmonary edema.
[place] [address] upon admission, improved to 6210 on 02/07/24. His repeat proBNP levels on 02/11/2024 at 7400. Elevated lactic acid levels at 5.4 upon admission that resolved.
Patient is off of sedatives and pressors -for more than a week now.
Partial small bowel obstruction versus ileus.
Surgery on board, recommended to continue advancing diet as tolerated and monitor for symptoms.
Resolved.
Contraction alkalosis-
Diamox 3 more doses and stop.
RAUL on CKD stage 3b
likely secondary to cardiorenal syndrome.
Cr down to 1.5, currently at his baseline-1.2.-Resolved
Continue to trends weights, I and O, and
Nephro signed off.
Currently patient is alkalotic and hypercarbic.
Avoid nephrotoxic agents. Currently not on bicarbonate
Peripheral vascular disease-
No plan for staged revascularization procedure due to clinical instability.
Patient is currently on Eliquis.
Status post left lower extremity arteriogram and stent to SFA, angioplasty to PT per vascular surgery in 09/26.
Permanent A-fib
On metoprolol.
[id number] score-Transitioned back to Eliquis from heparin.
Questionable PVCs on telemetry in the a.m. today. Obtain an EKG.
Hypernatremia -
likely secondary to hemoconcentration from Diuresis.
Speech eval - NPO after intubation yesterday.
Recommended regular diet today.
recommend adequate oral hydratipon.
Discontinue tube feeds.
Reassess for hypernatremia tomorrow.
Leukocytosis-
White blood cell count trending up again.
Suspect secondary to partial small bowel obstruction, not considered as inadequate response to antibiotics.
ID on board, appreciate inputs.
Type 2 diabetes mellitus-
HbA1c at 6.4.
Licthdtfd-Pbsrief-39 units daily. Developed hypoglycemia on Tresiba - 02/07/24, diabetes nurse practitioner consulted for diabetes education and management.
Tube feeds discontinued. Overnight insulin requirement was low.
Continue to monitor glucose with tight glycemic control.
Elevated troponins
Type II demand ischemia
Troponins trended down on 02/02.
Cardiology on board.
Previous history of coronary artery disease.
Onward/Hospital acquired delirium
Delrium precautions
Reorientation
DUe to resp status would avoid melatonin and other sedative
DVT prophylaxis-on Eliquis
CODE STATUS DNR
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
CAD-continue his home meds-aspirin.
Hypertension-continue lisinopril.
Hyperlipidemia-continue Lipitor.
TIA
Asthma
Morbid obesity
Hypoglycemia
Investigations -
Chest X-Ray:
02/16/2024-parenchymal opacity within the mid to lower lungs bilaterally probably slightly improved from recent radiograph of February 12, 2024
02/07/24 - Slightly increased size of the small right pleural effusion with adjacent atelectasis. There is a likely trace left pleural effusion with adjacent atelectasis, similar to prior.
Mild interstitial edema.
02/05/24 -
As above, flip is not particularly well seen on this projection. Tip of the endotracheal tube likely approximately 1.5 cm above the flip, similar to prior. Enteric catheter and left upper extremity PICC in position.
Low lung volumes. Bilateral small pleural effusions and adjacent atelectasis/consolidation.
01/28/24- No acute cardiopulmonary process.
09/14/23- No active cardiopulmonary disease.
Abdomen X ray -
02/01/24- Nasogastric tube is seen with tip in the distal stomach. Study is otherwise stable.
CTA - 01/30/24 -
Scattered mild to moderate calcified plaque of the common carotid arteries, bilaterally. Bilateral bulb calcified plaque and calcified plaque at the ICA origin and proximal internal carotid arteries.
Distal left common carotid artery estimated luminal diameter reduction of 65%. Proximal left ICA estimated luminal diameter reduction of approximately 60%.
Proximal right ICA estimated luminal diameter reduction of approximately 50%.
Bilateral cavernous ICA calcified plaque with estimated luminal diameter reduction of less than 50%.
Normal variant absent right anterior cerebral artery A1 segment, with the A2 segment supplied by a patent anterior to be encasing artery.
Otherwise, no intracranial cerebral artery plaque, stenosis, occlusion, or aneurysm.
The vertebral arteries are patent. Patent basilar artery.
Moderate right and small left pleural effusion. Pulmonary parenchymal consolidation, right greater than left, atelectasis versus pneumonia. Mild superior mediastinal adenopathy.
CT Scan: CHEST 10/18/22- Stable small perifissural pulmonary nodules along the left major fissure. Stable mild small reticulonodular interstitial opacities in the bilateral upper lobes, right greater than left.
CAP 05/04/22- No acute pathology of the chest, abdomen and pelvis identified. Few left upper and lower lobe pulmonary nodules. Bilateral small renal cysts. Bilateral too small to characterize hypodense renal lesions, likely benign cysts. Moderate
fecal material throughout the colon. Mild diverticulosis.
Echo: 12/12/23- Moderately reduced left ventricular systolic function. Estimated left ventricular ejection fraction is 35-40% . Wall motion analysis is limited due to image quality. Mild mitral regurgitation.
Compared to the previous report 12/12/2023 findings are similar no significant change previously estimated ejection fraction 35%
PFT's: 03/29/23 FEV1 1.91 L 77%, FVC 2.57 L 75%, ratio 74. TLC 3.63 L 59%, DLCO 60%--moderately severe restriction, mild diffusion impairment
Anticipated Discharge: 24 - 48 hours
Subjective/Interval History
-
Date of Service: February 17, 2024
Patient had an episode of shortness of breath yesterday evening, he was started on BiPAP, chest x-ray was obtained and an ABG was obtained. His ABG showed metabolic alkalosis. The patient remained on BiPAP overnight. Currently patient is on mid
flow at 6 L. Patient is stable
Objective Data
-
Labs:
Laboratory Results
02/16/24 02/17/24 02/17/24
20:54 03:38 04:51
APTT 74.8 H 111.7 H
HCO3 45.0 H*
Sodium 136 138
Potassium 4.1 3.7
Chloride 87 L 89 L
Carbon Dioxide 39 H 37 H
BUN 22 H 21 H
Creatinine 1.2 1.2
Glucose 157 H 111 H
Calcium 8.1 L 8.0 L
02/17/24
10:30
APTT Pending
HCO3
Sodium
Potassium
Chloride
Carbon Dioxide
BUN
Creatinine
Glucose
Calcium
Vital Signs:
Vital Signs
Temp Pulse Resp BP Pulse Ox
96.7 F L 77 23 113/87 94
02/17/24 04:06 02/17/24 08:00 02/17/24 08:00 02/17/24 08:00 02/17/24 08:10
I&O
02/16/24 02/17/24 02/18/24
06:59 06:59 06:59
Intake Total 1060 / 1060
Output Total 1500 / 1500 1900 / 1900
Balance -1500 / -1500 -840 / -840
Review of Systems
-
History Source: Patient
Constitutional: Reports No Symptoms
Respiratory: Reports Trouble Breathing
Cardiac: Reports No Symptoms
Abdomen/GI: Reports No Symptoms
Genitourinary: Reports No Symptoms
Musculoskeletal: Reports No Symptoms
Skin: Reports No Symptoms
Neuro: Reports No Symptoms
Endocrine: Reports No Symptoms
Hematologic / Lymphatic: Reports No Symptoms
Allergy / Immunology: Reports No Symptoms
Physical Exam
-
General: Comfortable and Other (PICC line in place, no erythema, edema, or local rise of temperature.)
HEENT: Moist Mucous Membranes
Respiratory: Clear to Auscultation; Negative Wheezes, Rales, Rhonchi or Crackles
Cardiac: Regular Rhythm and S1/S2; Negative Murmur, Rub or Gallop
GI: Soft, Nontender and Normal Bowel Sounds
Musculoskeletal: No Clubbing, No Cyanosis and No Edema
Skin: Warm
Neuro: Awake, Alert, Oriented, No Motor Deficits and Other (Patient has no orientation issues, he is just frustrated.)
Psych: Calm
Data Reviewed
-
Diagnostic Radiology: Image personally visualized and interpreted, Report Reviewed by me and Discussed with Physician
Labs: Labs Reviewed by me, Discussed with Physician and Discussed with Nurse
--- NOTE | 2024-02-17 08:45 | W.PN.CD ---
Today's Communication / Plan
-
weights trending down
remains on IV lasix and I/o Negative
continue lasix and monitor renal function
continue efforts to optimize pulmonary status prior to surgery . Currently on 6liters. reports home O2 is 2 liters.Patient also being assessed by Dr Carter and pulmonary
Impression / Plan
-
Impression/Plan: 73 y/o male (known to Dr. Alvarez, his primary Contracts Specialist) with HTN, HLD, IDDM, COPD, permanent atrial fibrillation (on apixaban), CAD with ICMO, PAD with prior LSFA endovascular intervention, and obesity admitted with
non-healing left foot ulcer/wet gangrene complicated by sepsis now s/p left heal debridement, subsequently complicated by VDRF and hypotension requiring pressor support.
HFrEF, LVEF 35% 02/2024
- goal weight has been felt to be 105.7kg based on RHC performed 09/2023; but now dry weight is now lower with nutritional change
-U/S 02/13/2024 did not favor thoracentesis (small-mod bilat effusions)
- continue Lasix 40 IV BID
-close monitoring of labs, tele, weight
- U/S 02/13/2024 did not favor thoracentesis (small-mod bilat effusions)
- continue Toprol XL: increase to 50mg bid
- he likely needs another surgery
-post op, assess to add back lisinopril, SGLT2i, aldactone
Significant complex lung disease
- Significant CO2 retention
- Pulm consulted
Left heal wet gangrene/septic shock/ osteomyelitis
-Pre op assessment
- Patient will likely require amputation.
- Increased risk due to recent heart failure, cardiomyopathy, CAD and afib.
- Considering the importance of surgery with sepsis and osteo, it is reasonable to proceed with surgery this admission (high, but not prohibitive, risk). Continue to optimize resp status
- on heparin drip due to prolonged eliquis hold
Ischemic cardiomyopathy
-Chronic.
-LVEF = 35%.
-GDMT: will hold GDMT other than Toprol XL pre-operative pending vascular surgery and reintroduce post-operatively as above
Nonsustained VT
- 13 seconds over the weekend.
- Increased BB
- Later can consider primary prevention ICD
Permanent Atrial fibrillation
-rate control: Toprol XL
-AC: heparin drip, then back to eliquis post op
Coronary artery disease, old NE, chronically occluded LAD.
-continues on ASA/statin
Subjective:
no sob . remains on 6 liters
DATA:
Echo 02/05/2024: Left ventricular ejection fraction is 35%; no significant valvular disease.
Cath 09/13/2023:
1. Right dominant circulation with a 50% lesion in the distal third of the RPDA, a diffusely diseased, small first obtuse marginal, a 30% lesion in the mid ramus, a 40% lesion in the origin of the first diagonal and a chronic total occlusion of the
mid LAD (known since cardiac catheterization in 1999).
2. Normal filling pressures (LVEDP = 10 mmHg, PCWP = 13 mmHg at 105.7 kg).
3. Severely impaired cardiac function (cardiac index = 1.36 L/min/m�, a VO2 difference 8.63 volume percent).
4. Mild precapillary pulmonary hypertension (mean PA pressure = 23 mmHg, PVR = 3.44 Moesr units).
5. Significantly elevated peripheral vascular resistance (1787 dynes*seconds*cm^5).
Physical Exam
Vital Signs/Labs
Vital Signs
Temp Pulse Resp BP Pulse Ox
98.5 F 77 23 113/87 94
02/17/24 08:15 02/17/24 08:00 02/17/24 08:00 02/17/24 08:00 02/17/24 08:10
02/16/24 02/17/24 02/18/24
06:59 06:59 06:59
Actual Weight 100.7 kg
02/16/24 05:59
02/17/24 03:38
PT 27.4 Sec (11.4-14.6) H 01/31/24 08:53
INR 2.50 01/31/24 08:53
APTT 111.7 Sec (23.4-35.0) H 02/17/24 03:38
Magnesium 1.8 mg/dl (1.6-2.3) 02/13/24 03:09
Triglycerides 150 mg/dl (10-149) H 02/05/24 03:31
01/31/24 02/07/24 02/11/24
09:09 04:41 03:56
Lze-W-Jzkvsqwiswe Pept 12774 6410 7400
Physical Exam
Constitutional: No acute distress
Cardiovascular: Rhythm/rate is irregular
Respiratory: Wheeze Absent and Rhonchi Absent
GI: Non tender
Neuro/Psych: Alert, Oriented and AO x 3
Data Reviewed
-
Date of Service: February 17, 2024
Medical Decision Making: Reviewed Test Results
X-Ray/CT/US/MRI/NUC/PET: Report Reviewed by me
Labs: Labs Reviewed by me
[2024-02-17] MEDS: DIAMOX 250 MG PO ×2 (09:30→19:44)
[2024-02-17] MEDS: ROXICODONE 5 MG PO ×3 (09:31→22:34)
[2024-02-17] MEDS: TYLENOL 650 MG PO ×2 (09:31→18:30)
[2024-02-17] MEDS: FLAGYL 500 MG PO ×2 (09:32→19:45)
[2024-02-17] MEDS: LASIX 40 MG IV ×2 (09:32→16:47)
[2024-02-17] MEDS: LOW STRENGTH ASPIRIN 81 MG TUBE (09:32)
[2024-02-17] MEDS: FLUSH (NSS) 2 FLUSH IV (09:33)
[2024-02-17] MEDS: TOPROL XL 50 MG PO ×2 (09:33→19:45)
[2024-02-17] MEDS: DESENEX/MITRAZOL/ZEASORB 1 APPLIC TOPICAL ×2 (09:34→19:47)
[2024-02-17] MEDS: NOVOLOG FLEXPEN 5 UNITS SC ×3 (09:35→16:45)
[2024-02-17] MEDS: NOVOLOG FLEXPEN-LOW RESISTANCE SC (09:35)
[2024-02-17 11:39] LABS: Glucose - Point of Care 177 mg/dl (70-99)
[2024-02-17 12:00] LABS: APTT 64.5 Sec (23.4-35.0)
[2024-02-17] MEDS: NOVOLOG FLEXPEN-LOW RESISTANCE 1 UNITS SC ×2 (12:17→16:45)
--- NOTE | 2024-02-17 15:11 | W.PN.PUL3 ---
Today's Communication / Plan
-
Continue BiPAP with naps and at bedtime
Would discontinue Diamox after today
Continue IV diuretics
Nebulizers as needed
Incentive spirometry
Patient is high risk for pulmonary complications with amputation but not sure if in the short-term can get any better than this. Hypoxemia mainly driven by obesity, bilateral pleural effusions due to volume overload and hypovolemia.
Continue to wean down supplemental oxygen currently at 4 L Pulse ox was 99%
Incentive spirometry encouraged
Will continue to follow along
Assessment
-
Patient is a 73-year-old male with previous history of hypertension, hyperlipidemia, CHF admitted to on 01/28/2024 for nonhealing left heel wound. He notes that he had a blister that was broken up and on his left heel and was prescribed a
topical antibiotic which did not improve his symptoms. Vascular was consulted and due to progressive lethargy, there is concern for ongoing sepsis. Underwent urgent debridement of heel on 01/29/2024 and transferred postoperatively to ICU.
Impression:
Unresponsiveness, acute hypoxic respiratory failure status post intubation 01/30/24 --> extubated 02/05/2024 --> now awake but confused at times
Acute on chronic congestive heart failure exacerbation with reduced ejection fraction --> improved and close to dry weight
Wet gangrene of the left heel s/p excisional debridement through bone with lavage and irrigation 01/29/2024 - wound Cx grew MSSA
Nonhealing left heel wound
Nausea/vomiting and diarrhea with flat plate concerning for ileus vs early SBO (likely the former)
Leukocytosis
RAUL, creatinine 1.9 (Cr baseline: approx. 1.2-1.3) - RAUL improved
Hypernatremia (mild) - resolved
DM type II c/b hyperglycemia (HbA1C: 6.4 on 01/29/2024)
Chronic hypercapnic respiratory failure with metabolic alkalosis
Conditions present prior to admission
History of heart failure, ICM worsened LVEF at 30-35% - TTE 09/11/23
Hypertension
Hyperlipidemia
Morbid obesity, BMI 40.4
Left anterior fascicular block, chronic
History of persistent atrial fibrillation on Eliquis
Coronary disease with history of HI 20+ years ago
History of TIA
Severe sleep apnea, HST AHI 61/78%, failed CPAP 2021
Diabetes
Chronic DJD, back pain
[id number], quit
Chronic cough, COPD/RLD on PFTs, follows at [facility]-Dr Montiel/Chanelle
PAD
Plan:
Acute hypoxemic respiratory failure: Ongoing.
Remains on 5 L.
Patient known to me from the office-has only very mild COPD. Pulmonary function testing mainly show restriction with minimal airflow obstruction.
Prior CT chest in 2022: Patient does not have any significant parenchymal lung abnormalities or emphysema.
His pulmonary function testing are consistent with restriction due to obesity.
During our last visit 01/2024 only on nocturnal oxygen-did not require oxygen with ambulation.
COPD which is very mild not a significant contributor to hypoxemia as the patient is not bronchospastic.
-
I agree that most of his hypoxemia is likely related to volume overload/with bilateral pleural effusions hypoalbuminemia/morbid obesity and chronic hypercapnic respiratory failure.
-
chronic hypercapnia likely due to obesity hypoventilation syndrome
ABG (02/10) shows compensated hypercarbia pH 7.38 and pCO2 62; serum bicarbonate from blood work is 38
ABG 02/17/2024: 7.49/59/80
Patient is noted to be intolerant to CPAP in the past.
Continue nocturnal BiPAP and with naps while in the hospital.
Avoid sedatives/narcotics as able
Latest ABG with respiratory alkalosis-would not continue further Diamox after tomorrow.
May use nebulizers as needed. Not bronchospastic on exam
Incentive spirometry encouraged: During my evaluation pulse ox increased to 99-100% on 4 L after encouraging the patient to take a few deep breath.
Heart failure with reduced ejection fraction chronic
Cardiology continues to follow.
Cardiac history as noted above-Patient follows cardiology (Kim)
Transthoracic echo from 12/12/2023 shows LVEF 35-40% --> echo repeated on 02/04 showed LVEF 35% with severe hypokinesis of the mid�distal
anterior, anteroseptal and apical dahl consistent with a mid LAD infarct; severe LAE
He underwent LHC and RHC on 09/13/2023 showed reduced CI at 1.36 and low PCWP at 13 with slightly elevated PADP at 17mmhg with mild pHTN
(mPAP: 23mmHg)
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
Continue with IV diuresis.
Part of the bilateral pleural effusions is due to low albumin level due to critical illness-nutritional support. Will take several weeks to completely improve.
Noted: Unresponsiveness status post intubation 01/29 --> he was extubated on 02/04
CTA chest from 01/30/2024 shows large bilateral pleural effusions with bilateral mosaic attenuation likely due to interstitial edema, without acute PE
CXR on 02/09/2024 still shows evidence of pleural effusions with subsegmental atelectasis
At risk for reintubation if noncompliant with PAP, family has made him DNR
Non healing would of LLE, on abx for coverage, concern for sepsis --> currently on Ancef + flagyl since 02/03 s/p Unasyn and meropenem
s/p debridement 01/29/24, tissue culture grew MSSA; wound vac
Blood culture negative
Vasc surgery saw pt on 02/01 --> patient is at high risk for limb loss due to extent of heel wound + bone exposure; no acute need for surgical intervention at this point
For amputation next week.
-
Preparatory pulmonary assessment: Patient will be high risk based on his history of obesity hypoventilation syndrome, chronic hypercapnic respiratory failure and obesity. Current hypoxemia mainly driven by volume overload/obesity/bilateral pleural
effusions due to hypoalbuminemia-this will take some time to improve.
Bilateral effusions, ultrasound noted. No indication for thoracentesis.
It appears that the amputation is semiurgent, may proceed if necessary and cannot wait for optimization that may take several days to weeks.
Patient understands high risk situation, including prolonged mechanical ventilation, tracheotomy, atelectasis, pneumonia and .
Daughter was at the bedside and she was updated in detail. She understood. 02/17/[address] Candelaria
DVT ppx: on Heparin gtt
PT/OT when able
Patient has a follow-up with our pulmonary office on 03/26/[address] Candelaria - I advised him to keep this appointment.
Care team has been able to change status to DNR, would continue GOC discussions
Diagnostic Data
CXR 02/05/2024: Nasrin is not particularly well seen on this projection. Tip of the endotracheal tube likely approximately 1.5 cm above the nasrin, similar to prior. Enteric catheter and left upper extremity PICC in position. Low lung volumes.
Bilateral small pleural effusions and adjacent atelectasis/consolidation.
Chest X-Ray: 01/28/24- No acute cardiopulmonary process.
09/14/23- No active cardiopulmonary disease.
Flat Plate 02/06/2024: Increased mild distention of small bowel, ileus versus at least partial distal small bowel obstruction.
CTA Chest 01/30/2024:Markedly limited study, as detailed above, with no findings to suggest bilateral CENTRAL pulmonary embolism. Large right lower lobe consolidation and moderate right pleural effusion.Left lower lobe subsegmental atelectasis and
small left pleural effusion. Groundglass opacity and mild septal thickening suggesting mild to moderate pulmonary edema. Endotracheal tube with tip in trachea above the nasrin. No pneumothorax.
CT Scan: CHEST 10/18/22- Stable small perifissural pulmonary nodules along the left major fissure. Stable mild small reticulonodular interstitial opacities in the bilateral upper lobes, right > left
CAP 05/04/22- No acute pathology of the chest, abdomen and pelvis identified. Few left upper and lower lobe pulmonary nodules. Bilateral small renal cysts. Bilateral too small to characterize hypodense renal lesions, likely benign cysts. Moderate
fecal material throughout the colon. Mild diverticulosis.
Echo: 12/12/23- Moderately reduced left ventricular systolic function. Estimated left ventricular ejection fraction is 35-40% . Wall motion analysis is limited due to image quality. Mild mitral regurgitation. Compared to the previous report
12/12/2023 findings are similar no significant change previously estimated ejection fraction 35%
PFT's: 03/29/23 FEV1 1.91 L 77%, FVC 2.57 L 75%, ratio 74. TLC 3.63 L 59%, DLCO 60%--moderately severe restriction, mild diffusion impairment
Reports and relevant images were personally reviewed.
-----
Subjective Data
-
Date of Service:
Date of Service: February 17, 2024
Chief Complaint: Pulmonary Follow Up
Objective Data
Data Reviewed
Vital Signs / I&O / Oxygen:
Vital Signs
Temp Pulse Resp BP Pulse Ox
98.3 F 84 19 120/72 95
02/17/24 11:30 02/17/24 12:08 02/17/24 12:08 02/17/24 11:20 02/17/24 12:08
Intake and Output
02/16/24 02/17/24 02/18/24
06:59 06:59 06:59
Intake Total 1060 / 1060 480 / 480
Output Total 1500 / 1500 1900 / 1900 340 / 340
Balance -1500 / -1500 -840 / -840 140 / 140
SaO2 [CPAP/PSV] 98
SaO2 [A/C] 100
SaO2 95
Nasal Cannula flow liters per 6
minute
Physical Exam
General: Respiratory Distress (mild), Chills (negative), Sweats (negative) and Poor Appetite
HEENT: Normocephalic, Anicteric and Moist Mucous Membranes
Cardiovascular: S1-S2, Regular Rhythm, Rub (negative) and Peripheral Edema (+1 lower extremity pitting edema bilaterally)
Respiratory: Wheeze (negative), Crackles (Bilateral), Rhonchi (negative) and Non-Labored Respirations
GI: Soft, Distended (Abdominal obesity), Non Tender and Normal Bowel Sounds
Neurology: Awake, Alert, No Motor Deficits, Tremors (negative) and Lethargic (confused)
Skin: Warm, Dry and Cyanosis (negative)
Labs/Micro/Reports
Lab Data
02/16/24 05:59
02/17/24 03:38
Laboratory Results
02/16/24 02/16/24 02/17/24
16:03 20:54 03:38
APTT 74.8 H 111.7 H
pH 7.49 H
pCO2 61 H
pO2 69 L
HCO3 46.5 H*
O2 Delivery Level
02/17/24 02/17/24
04:51 11:40
APTT 64.5 H
pH 7.49 H
pCO2 59 H
pO2 80 L
HCO3 45.0 H*
O2 Delivery Level bipap
[2024-02-17 16:41] LABS: Glucose - Point of Care 184 mg/dl (70-99)
[2024-02-17] MEDS: LIPITOR 80 MG PO (16:46)
[2024-02-17] MEDS: HEPARIN 25000 UNITS/250 ML IV (16:47)
[2024-02-17] MEDS: FLUSH (NSS) 4 FLUSH IV (16:51)
[2024-02-17 19:06] LABS: APTT 70.6 Sec (23.4-35.0)
[2024-02-17] MEDS: PEPCID 20 MG PO (19:45)
[2024-02-17 21:52] LABS: Glucose - Point of Care 212 mg/dl (70-99)
[2024-02-17] MEDS: LANTUS 0.2 UNITS SC (21:52)
--- NOTE | 2024-02-17 22:48 | PTCARENOTE ---
Pt is agreeable to wear BiPAP tonight. Restless, agitated, tearful at times. Pt complaining that he 'just can't do this anymore.' C/o severe chronic lower back pain. Pt states that he 'is done'. Pt encouraged to discuss POC with family and providers
during the day tomorrow. Pt states that 'they already know how I feel.' PRN pain medication given per MAR. Comfort and support provided. Heparin gtt remains in place, see worklist for titrations. Call castellon within reach. Medsitter and bed alarm in
place for pt safety.
[2024-02-18] VITALS (17 sets, daily range): BP systolic 82–126; BP diastolic 44–103; PULSE 3–87
[2024-02-18 01:55] LABS: APTT 101.7 Sec (23.4-35.0)
--- NOTE | 2024-02-18 02:37 | PTCARENOTE ---
Addendum entered by Susannah Mckeon 02/18/24 02:51:
heparin gtt restarted through R hand IV
Original Note:
Pt pulled out PICC line. Site not bleeding, bandage applied. Heparin gtt paused until IV access can be obtained. IV team coverage made aware.
[2024-02-18] MEDS: ANCEF 10 IV ×3 (02:48→17:56)
[2024-02-18 03:50] LABS: Hematocrit 30.2 % (39.0-52.0); Hemoglobin 9.2 g/dL (13.0-18.0); Mean Corp Hgb Conc. 30.5 g/dL (33.0-37.0); Mean Corpuscular Hgb 25.5 pg (27.0-31.0); Mean Corpuscular Volume 83.7 fL (80.0-94.0); Mean Platelet Volume 11.6 fL (7.4-10.4); Platelet Count 260 10^3/uL (130-400); Red Blood Cell Count 3.61 10^6/uL (4.70-6.10); Red Cell Dist. Width 21.1 % (11.5-14.5); White Blood Cell Count 8.9 10^3/uL (4.8-10.8)
--- NOTE | 2024-02-18 05:02 | PTCARENOTE ---
Pt removed BiPAP mask several times with replacement by RT. Pt removed mask again and this RN transitioned pt to MF cannula d/t noncompliance.
--- NOTE | 2024-02-18 07:41 | PTCARENOTE ---
MD notified in regards to events last night. Patient confused and agitated, pulled out PICC, pulling off oxygen, disconnecting new IV site. Patient states 'I don't want to do this anymore'. VS stable. Afib on monitor HR 70-90's. Resident
currently in room with patient. Staff in room at bedside 1:1 with patient.
--- NOTE | 2024-02-18 07:58 | W.PN.HOSP.TC ---
Today's Communication/Plan
-
Hold Lasix.
Psychiatry consulted for depression/sadness.
Received 3 doses of Diamox. Stop Diamox.
Assessment / Plan
Assessment / Plan
Assessment -73 Yo M with PMHx significant for peripheral vascular disease, CKD stage IIIb, CAD, permanent A-fib, TIA, hypertension, hyperlipidemia, insulin-dependent type 2 diabetes mellitus, with multiple comorbidities presented to the hospital
with sepsis due to left foot plantar infected diabetic foot ulcer with underlying PAD.
Plan -
Acute on Chronic HFrEF -
Likely secondary to sepsis in the setting of pre-existing CAD and heart failure.
Exacerbated yesterday after initiation of IVF for his hypernatremia.
X ray showed increased pleural effusion and mild interstitial edema.
Gentle diuresis today. Reassess him on day to day basis for diuresis based on his volume status.
Cardiology on board. Appreciate input
Most recent echocardiogram-09/26-EF 30 to 35%.
Continue GDMT as tolerated. Cardiology added metoprolol.
Patient had 13 seconds of NSVT and metoprolol dose bumped to 50 on 02/10/24.
Patient's dry weight has likely changed given his Chronic illness and intubation. Suspect dry weight is much lower than 105kgs. Currently alkalotic.
gentle diuresis over the weekend. Diamox for 3 more doses and stop.
Current weight-100.7 kgs, renal function stable with BUN-24, serum creatinine at 1.4 eGFR at 52.
Hold lasix for today.
Trend daily weights, I's and O's.
Continue to trend renal function
Severe sepsis-resolved.
Secondary to diabetic left plantar foot ulcer with underlying peripheral vascular disease.
Status post sharp excisional debridement by vascular surgery team on 01/28, lactic acid levels on 01/29 at 5.4.
Left heel bone biopsy growing MSSA, patient was initially started on IV cefepime and vancomycin then transition to meropenem and vancomycin and then to Unasyn.
ID on board, appreciate inputs.
Patient is currently on cefazolin and metronidazole.
BKA of his left foot by vascular team scheduled tentatively for for 02/13/2024 on hold procedure held.
Ventilator dependent respiratory failure- extubated on 02/05/24.
Acute on chronic hypoxic respiratory failure.
Patient is back on BiPAP. Although there is some pulmonary component to it, suspect BiPAP and oxygen requirement secondary to heart failure.
CT x-ray evident for pulmonary edema. Chest x-ray showed worsening pleural effusion and pulmonary edema.
Also history of PHTN, untreated, precapillary likely secondary to ERICK.
Given patient's history of pulmonary hypertension and untreated ERICK, his baseline O2 saturation is probably 88-92, and occasionally uses 2l home 02. Currently at 4l.
Continue BiPAP and incentive spirometry.
Advised patient to stay compliant with BiPAP, and incentive spirometry
Patient is medically optimised for his surgery as of today.
Shock-01/29.
Unclear etiology whether septic versus cardiogenic.
CT PE negative for pulmonary embolism, however there is some evidence for mild to moderate pulmonary edema.
[place] [address] [place] admission, improved to 6210 on 02/07/24. His repeat proBNP levels on 02/11/2024 at 7400. Elevated lactic acid levels at 5.4 upon admission that resolved.
Patient is off of sedatives and pressors -for more than a week now.
Partial small bowel obstruction versus ileus.
Surgery on board, recommended to continue advancing diet as tolerated and monitor for symptoms.
Resolved.
Contraction alkalosis-
Diamox 3 more doses and stop.
RAUL on CKD stage 3b
likely secondary to cardiorenal syndrome.
Cr down to 1.5, currently at his baseline-1.2.-Resolved
Currently Serum creatinine at 1.4. Hold lasix for now. received 3 doses of acetazolamide. Currently acetazolamide discontinued.
Continue to trends weights, I and O, and
Nephro signed off.
Currently patient is alkalotic and hypercarbic.
Avoid nephrotoxic agents. Currently not on bicarbonate
Peripheral vascular disease-
No plan for staged revascularization procedure due to clinical instability.
Patient is currently on Eliquis.
Status post left lower extremity arteriogram and stent to SFA, angioplasty to PT per vascular surgery in 09/26.
Permanent A-fib
On metoprolol.
[id number] score-Transitioned back to Eliquis from heparin.
Questionable PVCs on telemetry in the a.m. today. Obtain an EKG.
Hypernatremia -
likely secondary to hemoconcentration from Diuresis.
Speech eval - NPO after intubation yesterday.
Recommended regular diet today.
recommend adequate oral hydratipon.
Discontinue tube feeds.
Reassess for hypernatremia tomorrow.
Leukocytosis-
White blood cell count trending up again.
Suspect secondary to partial small bowel obstruction, not considered as inadequate response to antibiotics.
ID on board, appreciate inputs.
Type 2 diabetes mellitus-
HbA1c at 6.4.
Anrwmmfwk-Sdrxtex-56 units daily. Developed hypoglycemia on Tresiba - 02/07/24, diabetes nurse practitioner consulted for diabetes education and management.
Tube feeds discontinued. Overnight insulin requirement was low.
Continue to monitor glucose with tight glycemic control.
Elevated troponins
Type II demand ischemia
Troponins trended down on 02/02.
Cardiology on board.
Previous history of coronary artery disease.
/Hospital acquired delirium
Delrium precautions
Reorientation
DUe to resp status would avoid melatonin and other sedative
DVT prophylaxis-on Eliquis
CODE STATUS DNR
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
CAD-continue his home meds-aspirin.
Hypertension-continue lisinopril.
Hyperlipidemia-continue Lipitor.
TIA
Asthma
Morbid obesity
Hypoglycemia
Investigations -
Chest X-Ray:
02/16/2024-parenchymal opacity within the mid to lower lungs bilaterally probably slightly improved from recent radiograph of February 12, 2024
02/07/24 - Slightly increased size of the small right pleural effusion with adjacent atelectasis. There is a likely trace left pleural effusion with adjacent atelectasis, similar to prior.
Mild interstitial edema.
02/05/24 -
As above, flip is not particularly well seen on this projection. Tip of the endotracheal tube likely approximately 1.5 cm above the flip, similar to prior. Enteric catheter and left upper extremity PICC in position.
Low lung volumes. Bilateral small pleural effusions and adjacent atelectasis/consolidation.
01/28/24- No acute cardiopulmonary process.
09/14/23- No active cardiopulmonary disease.
Abdomen X ray -
02/01/24- Nasogastric tube is seen with tip in the distal stomach. Study is otherwise stable.
CTA - 01/30/24 -
Scattered mild to moderate calcified plaque of the common carotid arteries, bilaterally. Bilateral bulb calcified plaque and calcified plaque at the ICA origin and proximal internal carotid arteries.
Distal left common carotid artery estimated luminal diameter reduction of 65%. Proximal left ICA estimated luminal diameter reduction of approximately 60%.
Proximal right ICA estimated luminal diameter reduction of approximately 50%.
Bilateral cavernous ICA calcified plaque with estimated luminal diameter reduction of less than 50%.
Normal variant absent right anterior cerebral artery A1 segment, with the A2 segment supplied by a patent anterior to be encasing artery.
Otherwise, no intracranial cerebral artery plaque, stenosis, occlusion, or aneurysm.
The vertebral arteries are patent. Patent basilar artery.
Moderate right and small left pleural effusion. Pulmonary parenchymal consolidation, right greater than left, atelectasis versus pneumonia. Mild superior mediastinal adenopathy.
CT Scan: CHEST 10/18/22- Stable small perifissural pulmonary nodules along the left major fissure. Stable mild small reticulonodular interstitial opacities in the bilateral upper lobes, right greater than left.
CAP 05/04/22- No acute pathology of the chest, abdomen and pelvis identified. Few left upper and lower lobe pulmonary nodules. Bilateral small renal cysts. Bilateral too small to characterize hypodense renal lesions, likely benign cysts. Moderate
fecal material throughout the colon. Mild diverticulosis.
Echo: 12/12/23- Moderately reduced left ventricular systolic function. Estimated left ventricular ejection fraction is 35-40% . Wall motion analysis is limited due to image quality. Mild mitral regurgitation.
Compared to the previous report 12/12/2023 findings are similar no significant change previously estimated ejection fraction 35%
PFT's: 03/29/23 FEV1 1.91 L 77%, FVC 2.57 L 75%, ratio 74. TLC 3.63 L 59%, DLCO 60%--moderately severe restriction, mild diffusion impairment
Anticipated Discharge: > 48 hours
Subjective/Interval History
-
Date of Service: February 18, 2024
Patient is very frustrated, teary, crying and refused to talk to physician today.
Objective Data
-
Labs:
Laboratory Results
02/18/24 02/18/24 02/18/24
01:32 03:23 07:47
WBC 8.9
Hgb 9.2 L
Hct 30.2 L
Plt Count 260
APTT 101.7 H
Sodium Pending
Potassium Pending
Chloride Pending
Carbon Dioxide Pending
BUN Pending
Creatinine Pending
Glucose Pending
Calcium Pending
02/18/24
08:00
WBC
Hgb
Hct
Plt Count
APTT Pending
Sodium
Potassium
Chloride
Carbon Dioxide
BUN
Creatinine
Glucose
Calcium
Vital Signs:
Vital Signs
Temp Pulse Resp BP Pulse Ox
97.5 F 73 13 126/48 100
02/18/24 03:00 02/18/24 06:00 02/18/24 06:00 02/18/24 04:00 02/18/24 06:00
I&O
02/17/24 02/18/24 02/19/24
06:59 06:59 06:59
Intake Total 1060 / 1060 840 / 840
Output Total 1899 / 1899
Balance -840 / -840 -1180 / -1180
Review of Systems
-
Unable to obtain full review of systems at this time due to: Other (Patient refused to talk and provide review of systems.)
Psych: Reports Depressed and Sad
Physical Exam
-
General: Comfortable (on 4l nasal cannula flow)
HEENT: Normocephalic, Atraumatic, Moist Mucous Membranes and PERRLA
Respiratory: Clear to Auscultation; Negative Wheezes, Rales, Rhonchi or Crackles
Cardiac: S1/S2 and Irregular Rhythm; Negative Murmur, Rub or Gallop
GI: Soft, Nontender and Normal Bowel Sounds
Musculoskeletal: No Clubbing, No Cyanosis and No Edema
Neuro: Awake and No Motor Deficits
Psych: Agitated and Depressed
Data Reviewed
-
Labs: Labs Reviewed by me, Discussed with Physician and Discussed with Nurse
[2024-02-18 08:01] LABS: Glucose - Point of Care 177 mg/dl (70-99)
--- NOTE | 2024-02-18 08:20 | W.PN.UPDATE ---
Update Note
Progress Note Update
I saw and evaluated the patient. I reviewed the resident�s note and agree with findings and plan as documented in the resident�s note.
Denies any new complaints.
Gen: continues to remain NAD, awake and alert, NCAT
Neck: supple.
CV: remains irreg/irreg, +S1/S2, no m/r/g.
Resp: CTAB anteriorly
Skin: No rashes.
Neuro: remains CN 2-12 intact, nonfocal
Psych: normal mood and affect
CXR 02/16/24: parenchymal opacity within the mid to lower lungs bilaterally, probably slightly improved from most recent radiograph of February 12, 2024.
Acute on chronic hypoxemic respiratory failure requiring intubation/mechanical ventilator:
-due to acute on chronic HFrEF with known EF of 35%, NYHA class III-IV as well as underlying COPD and likely ERICK/OHS (on PRN NC O2 at home)
-now extubated
-cont BIPAP HS
-as per prior discussion with Dr. Mcintosh, no benefit to RHC at this time
-Dry weight likely lower than prior and the current driving force of the patient's respiratory failure is acute on chronic HFrEF at this time.
-CXR 02/16/24: Parenchymal opacity within the mid to lower lungs bilaterally, probably slightly improved from most recent radiograph of February 12, 2024.
-has been on Lasix 40mg IV BID. Weight decreased (AM wt pending). Now with mild ARUL, stop lasix and reevaluated diuretic tomorrow.
-currently on 5L midflow. It's possible the patient's oxygen requirements will not improve any further and, if that is the case, would recommend proceeding with surgery knowing that the surgery would be a high risk procedure but that ultimately, if
he does not have left lower extremity amputation, that that in itself would be fatal.
Severe sepsis:
-due to L foot plantar ulcer with osteomyelitis
-Family initially opted for salvage of the extremity to avoid amputation, now plans for amputation this week
-cont Ancef/Flagyl as per ID
-cont heparin gtt preop
Other problems:
Primary respiratory acidosis with secondary metabolic alkalosis
Permanent atrial fibrillation: cont BB/Eliquis
RAUL on CKD3b, resolved
DM2: a1c 6.4%, SSI/accuchecks
Hospital acquired delirium, supportive care
Obesity due to excess calories
Pt's updated at bedside.
DNR/heparin gtt
Total time spent on today's encounter was 50 minutes which included time spent in counseling the patient/family regarding diagnosis and treatment plan as listed above, goals of care, and symptom management. Case was discussed with nursing staff,
specialists, and care coordinators/case management. All labs and imaging personally reviewed by me. Remainder the time spent in detailed review of previous records, lab data, imaging, and other medical provider documentation.
[2024-02-18 08:28] LABS: APTT 78.4 Sec (23.4-35.0)
[2024-02-18 08:40] LABS: Blood Urea Nitrogen 23 mg/dl (9-20); Calcium 8.2 mg/dl (8.4-10.2); Chloride 92 mmol/L (98-107); Estimated Creatinine Clearance 51 ml/min; Glucose 154 mg/dl (70-99); Potassium 3.9 mmol/L (3.5-5.1); Sodium 137 mmol/L (135-145); eGFR 52.41
[2024-02-18 08:55] LABS: Carbon Dioxide 36 mmol/L (22-30)
[2024-02-18] MEDS: NOVOLOG FLEXPEN-LOW RESISTANCE 1 UNITS SC ×2 (09:36→11:55)
[2024-02-18] MEDS: NOVOLOG FLEXPEN 5 UNITS SC ×3 (09:37→16:36)
[2024-02-18] MEDS: DESENEX/MITRAZOL/ZEASORB 1 APPLIC TOPICAL (09:38)
[2024-02-18] MEDS: DIAMOX 250 MG PO ×2 (09:38→20:07)
[2024-02-18] MEDS: FLAGYL 500 MG PO ×2 (09:38→20:07)
[2024-02-18] MEDS: LASIX IV (09:38)
[2024-02-18] MEDS: LOW STRENGTH ASPIRIN 81 MG TUBE (09:38)
[2024-02-18] MEDS: TOPROL XL 50 MG PO ×2 (09:39→20:06)
[2024-02-18] MEDS: FLUSH (NSS) 2 FLUSH IV ×2 (09:41→17:56)
--- NOTE | 2024-02-18 11:22 | W.PN.PUL3 ---
Today's Communication / Plan
-
Continue with current care
Patient was encouraged to use BiPAP as much as possible during naps and at bedtime
Continue to wean down oxygen as able.
Incentive spirometry encouraged
Diuretics on hold
Acetazolamide on hold
Follow electrolytes and renal function
For possible amputation next week
Assessment
-
Patient is a 73-year-old male with previous history of hypertension, hyperlipidemia, CHF admitted to on 01/28/2024 for nonhealing left heel wound. He notes that he had a blister that was broken up and on his left heel and was prescribed a
topical antibiotic which did not improve his symptoms. Vascular was consulted and due to progressive lethargy, there is concern for ongoing sepsis. Underwent urgent debridement of heel on 01/29/2024 and transferred postoperatively to ICU.
Impression:
Unresponsiveness, acute hypoxic respiratory failure status post intubation 01/30/24 --> extubated 02/05/2024 --> now awake but confused at times
Acute on chronic congestive heart failure exacerbation with reduced ejection fraction --> improved and close to dry weight
Wet gangrene of the left heel s/p excisional debridement through bone with lavage and irrigation 01/29/2024 - wound Cx grew MSSA
Nonhealing left heel wound
Nausea/vomiting and diarrhea with flat plate concerning for ileus vs early SBO (likely the former)
Leukocytosis
RAUL, creatinine 1.9 (Cr baseline: approx. 1.2-1.3) - RAUL improved
Hypernatremia (mild) - resolved
DM type II c/b hyperglycemia (HbA1C: 6.4 on 01/29/2024)
Chronic hypercapnic respiratory failure with metabolic alkalosis
Conditions present prior to admission
History of heart failure, ICM worsened LVEF at 30-35% - TTE 09/11/23
Hypertension
Hyperlipidemia
Morbid obesity, BMI 40.4
Left anterior fascicular block, chronic
History of persistent atrial fibrillation on Eliquis
Coronary disease with history of ME 20+ years ago
History of TIA
Severe sleep apnea, HST AHI 61/78%, failed CPAP 2021
Diabetes
Chronic DJD, back pain
[id number], quit
Chronic cough, COPD/RLD on PFTs, follows at [facility]-Dr Montiel/Chanelle
PAD
Plan:
Acute hypoxemic respiratory failure: Ongoing.
Decreased to 4 L. 02/18/2024.
Patient known to me from the office-has only very mild COPD. Pulmonary function testing mainly show restriction with minimal airflow obstruction.
Prior CT chest in 2022: Patient does not have any significant parenchymal lung abnormalities or emphysema.
His pulmonary function testing are consistent with restriction due to obesity.
During our last visit 01/2024 only on nocturnal oxygen-did not require oxygen with ambulation.
COPD which is very mild not a significant contributor to hypoxemia as the patient is not bronchospastic.
-
Hypoxemia is likely related to volume overload/with bilateral pleural effusions hypoalbuminemia/morbid obesity and chronic hypercapnic respiratory failure.
-
Chronic hypercapnia due to obesity hypoventilation syndrome
ABG (02/10) shows compensated hypercarbia pH 7.38 and pCO2 62; serum bicarbonate from blood work is 38
ABG 02/17/2024: 7.49/59/80
Patient is noted to be intolerant to CPAP in the past.
Continue nocturnal BiPAP and with naps while in the hospital. He is benefiting from this.
Avoid sedatives/narcotics as able
Latest ABG 02/17/2024 with respiratory alkalosis-now Diamox on hold, diuretics on hold due to RAUL. 02/18/2024.
May use nebulizers as needed. Not bronchospastic on exam
Incentive spirometry encouraged: During my evaluation pulse ox increased to 99-100% on 4 L after encouraging the patient to take a few deep breath.
Heart failure with reduced ejection fraction chronic
Cardiology continues to follow.
Cardiac history as noted above-Patient follows cardiology (Kim)
Transthoracic echo from 12/12/2023 shows LVEF 35-40% --> echo repeated on 02/04 showed LVEF 35% with severe hypokinesis of the mid�distal
anterior, anteroseptal and apical dahl consistent with a mid LAD infarct; severe LAE
He underwent LHC and RHC on 09/13/2023 showed reduced CI at 1.36 and low PCWP at 13 with slightly elevated PADP at 17mmhg with mild pHTN
(mPAP: 23mmHg)
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
IV diuretics on hold 02/18/2024 due to RAUL.
-
Part of the bilateral pleural effusions is due to low albumin level due to critical illness-nutritional support. Will take several weeks to completely improve.
Noted: Unresponsiveness status post intubation 01/29 --> he was extubated on 02/04
CTA chest from 01/30/2024 shows large bilateral pleural effusions with bilateral mosaic attenuation likely due to interstitial edema, without acute PE
CXR on 02/09/2024 still shows evidence of pleural effusions with subsegmental atelectasis
At risk for reintubation if noncompliant with PAP, family has made him DNR
Non healing would of LLE, on abx for coverage, concern for sepsis --> currently on Ancef + flagyl since 02/03 s/p Unasyn and meropenem
s/p debridement 01/29/24, tissue culture grew MSSA; wound vac
Blood culture negative
Vasc surgery saw pt on 02/01 --> patient is at high risk for limb loss due to extent of heel wound + bone exposure; no acute need for surgical intervention at this point
For amputation next week.
-
Preparatory pulmonary assessment: Patient will be high risk for pulmonary complication based on his history of obesity hypoventilation syndrome, chronic hypercapnic respiratory failure and obesity. Current hypoxemia mainly driven by volume
overload/obesity/bilateral pleural effusions due to hypoalbuminemia-this will take some time to improve.
Bilateral effusions, ultrasound noted. No indication for thoracentesis.
It appears that the amputation is semiurgent, may proceed if necessary and cannot wait for optimization that may take several days to weeks.
Patient understands high risk situation, including prolonged mechanical ventilation, tracheotomy, atelectasis, pneumonia and .
Daughter was at the bedside and she was updated in detail. She understood. 02/17/[address] Candelaria
DVT ppx: on Heparin gtt
PT/OT when able
Patient has a follow-up with our pulmonary office on 03/26/[address] Candelaria - I advised him to keep this appointment.
Care team has been able to change status to DNR, would continue GOC discussions
Diagnostic Data
CXR 02/05/2024: Nasrin is not particularly well seen on this projection. Tip of the endotracheal tube likely approximately 1.5 cm above the nasrin, similar to prior. Enteric catheter and left upper extremity PICC in position. Low lung volumes.
Bilateral small pleural effusions and adjacent atelectasis/consolidation.
Chest X-Ray: 01/28/24- No acute cardiopulmonary process.
09/14/23- No active cardiopulmonary disease.
Flat Plate 02/06/2024: Increased mild distention of small bowel, ileus versus at least partial distal small bowel obstruction.
CTA Chest 01/30/2024:Markedly limited study, as detailed above, with no findings to suggest bilateral CENTRAL pulmonary embolism. Large right lower lobe consolidation and moderate right pleural effusion.Left lower lobe subsegmental atelectasis and
small left pleural effusion. Groundglass opacity and mild septal thickening suggesting mild to moderate pulmonary edema. Endotracheal tube with tip in trachea above the nasrin. No pneumothorax.
CT Scan: CHEST 10/18/22- Stable small perifissural pulmonary nodules along the left major fissure. Stable mild small reticulonodular interstitial opacities in the bilateral upper lobes, right > left
CAP 05/04/22- No acute pathology of the chest, abdomen and pelvis identified. Few left upper and lower lobe pulmonary nodules. Bilateral small renal cysts. Bilateral too small to characterize hypodense renal lesions, likely benign cysts. Moderate
fecal material throughout the colon. Mild diverticulosis.
Echo: 12/12/23- Moderately reduced left ventricular systolic function. Estimated left ventricular ejection fraction is 35-40% . Wall motion analysis is limited due to image quality. Mild mitral regurgitation. Compared to the previous report
12/12/2023 findings are similar no significant change previously estimated ejection fraction 35%
PFT's: 03/29/23 FEV1 1.91 L 77%, FVC 2.57 L 75%, ratio 74. TLC 3.63 L 59%, DLCO 60%--moderately severe restriction, mild diffusion impairment
Reports and relevant images were personally reviewed.
-----
Subjective Data
-
Date of Service:
Date of Service: February 18, 2024
Chief Complaint: Pulmonary Follow Up
Objective Data
Data Reviewed
Vital Signs / I&O / Oxygen:
Vital Signs
Temp Pulse Resp BP Pulse Ox
97.5 F 72 17 82/58 94
02/18/24 03:00 02/18/24 08:01 02/18/24 08:01 02/18/24 08:01 02/18/24 08:49
Intake and Output
02/17/24 02/18/24 02/19/24
06:59 06:59 06:59
Intake Total 1060 / 1060 840 / 840
Output Total 1900 / 1900 2019
Balance -840 / -840 -1180 / -1180
SaO2 [CPAP/PSV] 98
SaO2 [A/C] 100
SaO2 94
Nasal Cannula flow liters per 4
minute
Physical Exam
General: Respiratory Distress (mild), Chills (negative), Sweats (negative) and Poor Appetite
HEENT: Normocephalic, Anicteric and Moist Mucous Membranes
Cardiovascular: S1-S2, Regular Rhythm, Rub (negative) and Peripheral Edema (+1 lower extremity pitting edema bilaterally)
Respiratory: Wheeze (negative), Crackles (Bilateral), Rhonchi (negative) and Non-Labored Respirations
GI: Soft, Distended (Abdominal obesity), Non Tender and Normal Bowel Sounds
Neurology: Awake, Alert, No Motor Deficits, Tremors (negative) and Lethargic (confused)
Skin: Warm, Dry and Cyanosis (negative)
Labs/Micro/Reports
Lab Data
02/18/24 03:23
02/18/24 08:07
Laboratory Results
02/17/24 02/17/24 02/18/24
11:40 18:35 01:32
APTT 64.5 H 70.6 H 101.7 H
02/18/24
08:07
APTT 78.4 H
[2024-02-18 12:10] LABS: Glucose - Point of Care 184 mg/dl (70-99)
[2024-02-18] MEDS: HEPARIN 25000 UNITS/250 ML IV (13:35)
--- NOTE | 2024-02-18 13:53 | VATNOTE ---
PICC line reportedly removed by patient overnight. Peripheral IV was placed by prior shift, and patient attempted to remove that IV site as well. Midline order noted; after discussion with primary RN, will hold Midline placement at this time d/t
patient impulsiveness and inability to keep patient restrained. Additional IV access placed.
--- NOTE | 2024-02-18 14:30 | CS.PSYCHR ---
Consult Summary - Psychiatry
-
Psychiatry consult after presenting sad, crying and refusing treatments this morning. On exam, he admits to periods of confusion and during those times experiencing visual hallucinations similar to what you seen in a kaleidoscope. He he remembers
being upset and crying this morning and states that at that time he feared someone was coming after him and his . He states he does not feel that way anymore. He is fully oriented at this time. His sister is visiting and present in room. She
states he has been doing well during her visit. Per nursing note, last night patient was markedly confused and agitated pulling out PICC line etc
MSE- good eye contact. euthymic mood. logical thought process. denies hallucinations or delusions at this time. oriented to person, place, year, month, date as well as current and incoming president.
Past psych history- denies
family psych history- denies
social hx- lives with of 40+ years. has children and grandchildren. used to work at an [employer]
D&A- denies
PMH-
Acute on chronic hypoxemic respiratory failure, COPD and likely ERICK/OHS (on PRN NC O2 at home), sepsis due to left foot plantar ulcer with osteomyelitis, permanent afib, RAUL, DM2, obesity, hypertension, hyperlipidemia, CHF
73 yo male with multifactorial delirium, currently clear but certainly fluctuations in cognition are to be expected in this condition. Will order Ativan 1mg IV PRN severe anxiety/agitation. Please contact team if this is not effective and further
recommendations are needed.
--- NOTE | 2024-02-18 15:12 | PTCARENOTE ---
Patient has been appropriate during the day. Alert and oriented x3, he is forgetful at times. He has no memory of the events from last night. Heparin drip infusing as ordered via right hand #20g IV. AT 1300 units. Patient 's PTT therapeutic.
Next PTT to be done in AM. Patient has had family in room. Medsitter still in use. Midflow oxygen down to 4L all day with sp02 88%-98%%. VS stable. Will continue to monitor frequently.
[2024-02-18] MEDS: NOVOLOG FLEXPEN-LOW RESISTANCE 2 UNITS SC (16:35)
[2024-02-18 16:49] LABS: Glucose - Point of Care 220 mg/dl (70-99)
[2024-02-18] MEDS: LIPITOR 80 MG PO (17:55)
[2024-02-18] MEDS: ROXICODONE 5 MG PO (20:06)
[2024-02-18] MEDS: TYLENOL 650 MG PO (20:07)
[2024-02-18] MEDS: PEPCID 20 MG PO (20:07)
[2024-02-18 21:16] LABS: Glucose - Point of Care 265 mg/dl (70-99)
[2024-02-18] MEDS: LANTUS 0.2 UNITS SC (22:20)
[2024-02-18] MEDS: ATIVAN 1 MG IV (22:24)
--- NOTE | 2024-02-18 23:51 | PTCARENOTE ---
agitated impulsive forgetful- 1-1 at bedside still having difficulty keeping pt form pulling lines/bipap etc, ativan given see mar- effective so far-
[2024-02-19] VITALS (16 sets, daily range): BP systolic 102–137; BP diastolic 43–98; PULSE 3–84; O2SAT 99–100
[2024-02-19] MEDS: DESENEX/MITRAZOL/ZEASORB 1 APPLIC TOPICAL ×3 (00:06→19:53)
--- NOTE | 2024-02-19 02:18 | PTCARENOTE ---
mitts order obtained as pt constantly pulls at tele leads/iv's bipap/bipap tubing despite 1-1. ativan was effective for a few hours
[2024-02-19] MEDS: ANCEF 10 IV ×3 (02:46→17:32)
[2024-02-19 05:42] LABS: APTT 132.3 Sec (23.4-35.0)
[2024-02-19 06:43] LABS: Blood Urea Nitrogen 22 mg/dl (9-20); Calcium 8.1 mg/dl (8.4-10.2); Carbon Dioxide 36 mmol/L (22-30); Chloride 95 mmol/L (98-107); Estimated Creatinine Clearance 55 ml/min; Glucose 170 mg/dl (70-99); Potassium 3.5 mmol/L (3.5-5.1); Sodium 137 mmol/L (135-145); eGFR 57.29
[2024-02-19 08:12] LABS: Glucose - Point of Care 162 mg/dl (70-99)
--- NOTE | 2024-02-19 08:15 | W.PN.HOSP.TC ---
Addendum entered and electronically signed by Sammy Alfred MD 02/19/24 22:04:
Attending Addendum-
I saw and evaluated the patient. I reviewed the resident�s note and agree with findings and plan as documented in the resident�s note. Sub: Alert and fulley oriented.. Seen with daughter present. Denies pain in LLE. Full 12 point ROS reviewed and
negative except as documented Exam: Vitals reviewed in chart NAd heart GEN-NAD heart irreg irreg lungs crackles at bases abd soft LE trace edema LLE in boot NTTP pulse faint
#Acute on chronic hypoxemic respiratory failure requiring intubation/mechanical ventilator
- 2L nocturnal at home
-due to acute on chronic HFrEF with known EF of 35%, NYHA class III-IV, underlying COPD ERICK/OHS. h/o tob abuse
-extubated 02/04
-cont BIPAP HS
-as per prior discussion with Dr. Mcintosh, no benefit to RHC at this time
-Dry weight unknown
-lasix IV on hold
-Januvia spironolactone and lisinopril on hold
-currently on midflow wean as destiny
# Severe sepsis secondary to LLE plantar osteomyelitis
-cont Ancef/Flagyl as per ID until 03/09 or amputation
-cont heparin gtt
-hopeful Lt BKA on Monday- high risk
# Acute Delirium / TME
- from infection
- resolved
# Permanent atrial fibrillation
-cont metoprolol/Eliquis
# RAUL on CKD3b
- baseline @ 1.3
- resolved
- monitor BMP
- hold lasix
# DM2: a1c 6.4%,
- cont SSI/accuchecks
- uncontrolled
- increase L BB and N AC to 20/6
# PVD- s/p SFA stent
# GERD- cont famotidine
DNR/heparin gtt
Time spent coordinating care, review of plan of care with resident, personally reviewed records in EMR, med rec, consults, notes, labs, radiology, d/w nursing, daughter � 62 mins
Original Note:
Today's Communication/Plan
-
.
Assessment / Plan
Assessment / Plan
Mr. Shar Wiggins is a 73yo pmh HFrEF (EF 30-35%), CKD stage 3b, IDDM, PAD, permanent afib, pulm htn admitted for an infected L foot plantar ulcer.
Acute on chronic HFrEF
- echo 09/26: EF 30-35%
- likely secondary to sepsis in setting of pre-existing CAD and CHF
- cardiology following
- trend daily weights, I's&O's, renal function
Sepsis secondary to osteomyelitis
- sepsis resolved, still treating osteomyelitis
- L heel bone bx - MSSA
- Cefazolin day 16 and metronidazole day 14
- ID following
- BKA tentatively scheduled for 02/20
Ventilator dependent respiratory failure
Acute on chronic hypoxic respiratory failure
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
- extubated on 02/05/24
- on BiPAP
- incentive spirometry
- wean O2 as possible
Permanent A-fib
- on eliquis, metoprolol
Type 2 diabetes mellitus
- HbA1c at 6.4.
- insulin sliding scale
Dwight/Hospital acquired delirium
- Delrium precautions
- Reorientation
- Due to resp status would avoid melatonin and other sedatives
Diet: 2g sodium
DVT prophylaxis: Eliquis
CODE STATUS: DNR
Anticipated Discharge: > 48 hours
Subjective/Interval History
-
Date of Service: February 19, 2024
Mr. Shar Wiggins is a 73yo pmh HFrEF (EF 30-35%), CKD stage 3b, IDDM, PAD, permanent afib, pulm htn admitted for an infected L foot plantar ulcer. He is currently being medically optimized for L bka. Pt has no concerns at this time. Psych
consulted for confusion and sundowning.
Objective Data
-
Labs:
Laboratory Results
02/19/24 02/19/24 02/19/24
05:16 05:39 13:00
APTT 132.3 H Pending
Sodium Cancelled 137
Potassium Cancelled 3.5
Chloride Cancelled 95 L
Carbon Dioxide Cancelled 36 H
BUN Cancelled 22 H
Creatinine Cancelled 1.3
Glucose Cancelled 170 H
Calcium Cancelled 8.1 L
Vital Signs:
Vital Signs
Temp Pulse Resp BP Pulse Ox
97.4 F 80 21 102/43 95
02/19/24 03:53 02/19/24 06:00 02/19/24 06:00 02/19/24 06:00 02/19/24 06:00
I&O
02/18/24 02/19/24 02/20/24
06:59 06:59 06:59
Intake Total 840 / 840 1071 / 1071
Output Total 2019 / 2019 525 / 525
Balance -1180 / -1180 546 / 546
Review of Systems
-
History Source: Patient
Constitutional: Reports No Symptoms
EENT: Reports No Symptoms Reported
Respiratory: Reports No Symptoms
Cardiac: Reports No Symptoms
Abdomen/GI: Reports No Symptoms
Genitourinary: Reports No Symptoms
Musculoskeletal: Reports No Symptoms
Neuro: Reports No Symptoms
Physical Exam
-
General: Well Developed and Well Nourished
HEENT: Oxygen (6L O2 via bipap)
Respiratory: Clear to Auscultation
Cardiac: S1/S2 and Irregular Rhythm
GI: Soft, Nontender, Nondistended and Normal Bowel Sounds
Musculoskeletal: No Clubbing, No Cyanosis and No Edema
Neuro: AO x 3
Psych: Calm
[2024-02-19] MEDS: FLAGYL 500 MG PO ×2 (09:44→19:53)
[2024-02-19] MEDS: TOPROL XL 50 MG PO ×2 (09:44→19:53)
[2024-02-19] MEDS: LOW STRENGTH ASPIRIN 81 MG TUBE (09:44)
[2024-02-19] MEDS: HEPARIN 25000 UNITS/250 ML IV (09:53)
[2024-02-19] MEDS: NOVOLOG FLEXPEN 5 UNITS SC ×2 (10:04→12:47)
[2024-02-19] MEDS: NOVOLOG FLEXPEN-LOW RESISTANCE SC (10:04)
[2024-02-19 10:15] LABS: Glucose - Point of Care 140 mg/dl (70-99)
--- NOTE | 2024-02-19 11:16 | W.PN.ID1 ---
Date of Service
Date of Service: February 19, 2024
Today's Communication
- c/w cefazolin and metronidazole - infection controlled, ongoing antibiotics for underlying osteomyelitis
- has PICC
- planned for amputation of foot when medically optimized - possibly next week, then would stop antibiotics; alternatively stop antibiotics 03/09/24 whichever is sooner
Assessment / Plan
Osteomyelitis of the L heel
Left heel ulcer with wet gangrene s/p debridement to bone
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
RAUL on CKD
Class II obesity
- 01/28 tissue culture with MSSA, no anaerobic culture done
- c/w cefazolin and metronidazole - infection controlled, ongoing antibiotics for underlying osteomyelitis
- has PICC
- planned for amputation of foot when medically optimized - possibly next week, then would stop antibiotics; alternatively stop antibiotics 03/09/24 whichever is sooner
����������������������������������������������������������
Chief Complaint
-: Other (calceneal osteomyelitis, L foot)
Subjective / Review of Systems
afebrile
bp stable
tolerating antibiotics
periods of delirium ongoing
Vital Signs / Physical Exam
Vital Signs
Vital Signs
Temp Pulse Resp BP Pulse Ox
97.1 F 80 21 102/43 97
02/19/24 07:55 02/19/24 06:00 02/19/24 06:00 02/19/24 06:00 02/19/24 08:19
Physical Exam
Constitutional: No Acute Distress
Cardiovascular: Regular Rate and S1/S2; Negative Murmur or Rub
Pulmonary: Clear and Symmetric; Negative Wheezes or Rales
Gastrointestinal: Soft, Non Tender, Non Distended and Normal Bowel Sounds
Skin: Warm and Dry; Negative Rash or Jaundice
Wound: Other (clean, no odor, no surrounding erythema; there is bruising around the wound and eschar around the perimeter of the wound)
Objective Data
Lab Data
Lab Results
02/18/24 03:23
02/19/24 05:39
ESR 95 mm/hour (0-20) H 01/28/24 07:14
PT 27.4 Sec (11.4-14.6) H 01/31/24 08:53
INR 2.50 01/31/24 08:53
APTT 132.3 Sec (23.4-35.0) H 02/19/24 05:16
Estimated Creat Clear 55 ml/min 02/19/24 05:39
Lactic Acid 1.1 mmol/L (0.7-2.0) 01/31/24 04:35
Total Bilirubin 0.5 mg/dl (0.2-1.3) 02/07/24 04:41
AST 34 U/L (17-59) 02/07/24 04:41
ALT 15 U/L (0-50) 02/07/24 04:41
Alkaline Phosphatase 160 U/L (38-126) H 02/07/24 04:41
C-Reactive Protein > 270.00 mg/L (0.0-10.00) H 01/28/24 07:41
Most recent labs reviewed.
Micro Results:
02/06/24 10:25 C. difficile GDH Antigen & Toxins - Final
Feces/Stool Negative for toxigenic C.difficile
- Final
Negative for Norovirus GI and GII.
01/31/24 12:12 Blood Culture - Final
Blood/Venous No Growth - Final Report
01/31/24 11:15 Blood Culture - Final
Blood/Venous No Growth - Final Report
01/28/24 12:25 Blood Culture - Final
Blood/Venous No Growth - Final Report
01/29/24 15:30 Tissue Culture - Final
Foot - Left S aureus-Methicillin Sensitive
Gram Stain - Final
01/28/24 14:04 MRSA Screen - Final
Nose No Methicillin Resistant Staphylococcus aureus isolated.
[2024-02-19] MEDS: ROXICODONE 5 MG PO (11:38)
[2024-02-19] MEDS: NOVOLOG FLEXPEN-LOW RESISTANCE 1 UNITS SC ×2 (12:46→17:32)
[2024-02-19 12:56] LABS: Glucose - Point of Care 173 mg/dl (70-99)
--- NOTE | 2024-02-19 13:26 | W.PN.CD ---
Today's Communication / Plan
-
Continue diuresis.
Continue acetazolamide for contraction alkylosis.
Discuss surgery timing with vascular surgery.
Impression / Plan
-
Impression/Plan: 73 y/o male (known to Dr. Alvarez, his primary Type Proof Reproducer) with HTN, HLD, IDDM, COPD, permanent atrial fibrillation (on apixaban), CAD with ICMO, PAD with prior [facility] endovascular intervention, and obesity admitted with
non-healing left foot ulcer/wet gangrene complicated by sepsis now s/p left heal debridement, subsequently complicated by VDRF and hypotension requiring pressor support.
#HFrEF
-Acute on chronic.
-LVEF 35%.
-U/S 02/13/2024 did not favor thoracentesis (small-moderate bilateral effusions).
-Continue furosemide 40 IV BID.
-Close monitoring of labs, tele, weight.
-Dry weight has not truly been established.
-Continue GDMT with metoprolol.
-He likely needs another surgery. Post op, assess to add back lisinopril, SGLT2i, spironolactone.
#Significant, complex lung disease
-Significant CO2 retention.
-Pulmonology consulted and following.
#Left heal wet gangrene/septic shock/osteomyelitis
-Pre op assessment:
-Patient will likely require amputation.
-Increased risk due to recent heart failure, cardiomyopathy, CAD and afib.
-Considering the importance of surgery with sepsis and osteomyelitis, it is reasonable to proceed with surgery this admission (high, but not prohibitive, risk). Continue to optimize respirator status.
-Continue heparin drip due to prolonged apixaban hold.
#Ischemic cardiomyopathy
-Chronic.
-LVEF = 35%.
-GDMT: will hold GDMT other than Toprol XL pre-operative pending vascular surgery and reintroduce post-operatively as above.
#Nonsustained VT
-Ongoing.
-32 beat run earlier today.
#Permanent Atrial fibrillation
-Chronic.
-Rate control: metoprolol succinate.
-CHADS2-Vasc = 4 (CHF, Age x2, Vascular Disease).
-Therapeutic anticoagulation with heparin drip, then back to apixaban post op.
#Coronary artery disease
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
-Continue ASA/statin.
Subjective:
Delerious overnight. Mitts applied. Cogent this afternoon.
Weight down 2.8 kg, now 100.7 <-- 103.5 (admit weight is 113.4).
Still requiring midflow.
HCO3 falling, now 36.
DATA:
Echo, 02/05/2024:
CONCLUSIONS
Moderately reduced left ventricular systolic function.
Left ventricular ejection fraction is 35% by visual estimate.
Severe hypokinesis of the mid to distal anterior, anteroseptal and apical dahl
c/w a mid LAD infarct.
Severe left atrial enlargement.
No significant valvular disease.
No significant change since the prior study of 09/11/2023.
Cath, 09/13/2023:
1. Right dominant circulation with a 50% lesion in the distal third of the RPDA, a diffusely diseased, small first obtuse marginal, a 30% lesion in the mid ramus, a 40% lesion in the origin of the first diagonal and a chronic total occlusion of the
mid LAD (known since cardiac catheterization in 1999).
2. Normal filling pressures (LVEDP = 10 mmHg, PCWP = 13 mmHg at 105.7 kg).
3. Severely impaired cardiac function (cardiac index = 1.36 L/min/m�, a VO2 difference 8.63 volume percent).
4. Mild precapillary pulmonary hypertension (mean PA pressure = 23 mmHg, PVR = 3.44 Moser units).
5. Significantly elevated peripheral vascular resistance (1787 dynes*seconds*cm^5).
Physical Exam
Vital Signs/Labs
Vital Signs
Temp Pulse Resp BP Pulse Ox
36.2 C 69 22 129/98 96
02/19/24 07:55 02/19/24 12:00 02/19/24 12:00 02/19/24 12:00 02/19/24 12:00
02/18/24 03:23
02/19/24 05:39
PT 27.4 Sec (11.4-14.6) H 01/31/24 08:53
INR 2.50 01/31/24 08:53
APTT 132.3 Sec (23.4-35.0) H 02/19/24 05:16
Magnesium 1.8 mg/dl (1.6-2.3) 02/13/24 03:09
Triglycerides 150 mg/dl (10-149) H 02/05/24 03:31
01/31/24 02/07/24 02/11/24
09:09 04:41 03:56
Yhi-L-Hikjuprslgr Pept [id number]
Physical Exam
Constitutional: No acute distress and Comfortable
EENT: Anicteric and Moist mucous membranes
Cardiovascular: Rhythm/rate is irregular, Pedal edema present, JVD present and S1S2 is normal
Respiratory: Respiratory effort normal and Other (Decreased throughout.)
GI: Soft, Distention absent, Flat, Non tender and Normal bowel sounds
Neuro/Psych: AO x 3
Data Reviewed
-
Date of Service: February 19, 2024
Medical Decision Making: Reviewed Test Results, Independent Historian Assessment, Test Interpretation and Review of Case with other Provider
EKG: Tracing Personally Visualized and interpreted and Report Reviewed by me
Echo: Tracing Personally Visualized and interpreted and Report Reviewed by me
X-Ray/CT/US/MRI/NUC/PET: Image Personally Visualized and interpreted and Report Reviewed by me
Medical Tests (PFT, Pathology etc): Image Personally Visualized and interpreted and Report Reviewed by me
Labs: Labs Reviewed by me
Old Records: Reviewed
[2024-02-19 14:01] LABS: APTT 92.4 Sec (23.4-35.0)
--- NOTE | 2024-02-19 14:10 | PN.DE.MGMTRT ---
Insulin Management
- -
02/16/2024: Diabetes management Follow up:
73 years old male with multiple comorbidities admitted to the hospital on 01/27 with sepsis due to left foot plantar infected ulcer 2/2 diabetic foot ulcer and peripheral vascular disease S/P left heal debridement. Diabetes consult requested on 02/04
for Hyperglycemia.
PMH: HTN, HLD, CAD, PVD, CHF, COPD and T2DM. Was taking Jardiance 10mg daily, Tresiba 45 units daily, metformin 1000mg BID and NovoLog 7-20 units AC. A1C 6.4%, Cr 1.5, eGFR 48.25. 01/30 started on tube feeds contributing to Hyperglycemia. 02/01 was
initiate on CC glycemic protocol, developed hypoglycemia on 02/03 while on insulin drip. Was transitioned off on 02/03 to SQ insulin- HS Lantus 5 units and moderate corrective only by Dr. Marcano.
Glucose has remained elevated since transition, 241 to 415, requiring high doses 3-9 units of corrective insulin.
Pt more alert today able to participate in diabetes discussion. Has resumed eating meals.
Per Vascular surgeon, OR tissue cultures of bone-->Staph aureus (confirming osteomyelitis)
02/18 Glucose improved with the addition of AC novolog 5 units but not at goal, range 139 to 265. Will increase AC novolog 6 units with corrective insulin and lantus 20 units @ hs.
Discussed with patients nurse.
Diabetes History
- -
Type of Diabetes: 2 requiring insulin
Pre-Admission Diabetes Regimen
02/19/24 02/19/24
05:16 05:39
Creatinine Cancelled 1.3
Lab Results
Hemoglobin A1c 6.4 % (4.0-5.6) H 01/29/24 07:22
Insulin Pump Settings
IP Diabetes Regimen
02/18/24 02/18/24 02/19/24
16:30 21:04 05:16
Glucose Cancelled
POC Glucose 220 H 265 H
12/02/19/24 02/19/24
05:39 08:00 10:03
Glucose 170 H
POC Glucose 162 H 140 H
02/19/24
12:45
Glucose
POC Glucose 173 H
Meal type: Lunch
Amount consumed: 100%
Patient Education
[2024-02-19 16:01] LABS: Glucose - Point of Care 172 mg/dl (70-99)
--- NOTE | 2024-02-19 16:57 | CM ---
Patient who was extubated 02/04, S/P left heel debridement. O2 midflow, BiPAP. Receiving IV Abx, Heparin gtt. PT/OT recommend skilled rehab. Seen by Psych yesterday for delirium.
Per ID notes: plan amputation of foot when medically optimized - possibly next week.
Plan follow respiratory needs including need for O2 & BiPAP at d/c.
Plan probable SNF.
--- NOTE | 2024-02-19 17:03 | PTCARENOTE ---
Pt presents as assessed. Aox2-3, forgetful and confused. Restless at times. Medsitter in place and family present throughout the day. Pt re-directable when confused. Satting mid to high 90's 10L MFNC. Heparin gtt infusing, PTT therapeutic at this
time- see intervention.
[2024-02-19] MEDS: LIPITOR 80 MG PO (17:32)
[2024-02-19] MEDS: NOVOLOG FLEXPEN 6 UNITS SC (17:32)
[2024-02-19 17:41] LABS: Glucose - Point of Care 199 mg/dl (70-99)
[2024-02-19] MEDS: LANTUS 0.2 UNITS SC (21:33)
[2024-02-19 21:37] LABS: APTT 92.1 Sec (23.4-35.0)
[2024-02-19 21:44] LABS: Glucose - Point of Care 153 mg/dl (70-99)
[2024-02-19] MEDS: PEPCID 20 MG PO (21:48)
[2024-02-19] MEDS: ATIVAN 1 MG IV (22:51)
[2024-02-20] VITALS (17 sets, daily range): BP systolic 75–163; BP diastolic 40–109; PULSE 2–78
--- NOTE | 2024-02-20 01:00 | PTCARENOTE ---
Addendum entered by Estefania Avendano RN 02/20/24 03:07:
Patient pulling at BiPAP and at IV site. B/l mitts placed, JESSICA Jimenez made aware.
Original Note:
Assumed care for patient overnight, received report from lissa RN. Pt is Alert to self and place, disoriented to time. Pt stating that it is the morning. Patient very restless. PT placed patient on BiPAP. Pt making many attempt to remove BiPAP.
Medsitter in place, daughter was present after change of shift. Pt tearful and yelling out at times. PTT therapeutic- see intervention, heparin gtt infusing. Call castellon is within reach.
[2024-02-20] MEDS: ANCEF 10 IV ×3 (02:52→17:48)
[2024-02-20 06:31] LABS: Blood Urea Nitrogen 21 mg/dl (9-20); Calcium 8.4 mg/dl (8.4-10.2); Carbon Dioxide 31 mmol/L (22-30); Chloride 96 mmol/L (98-107); Estimated Creatinine Clearance 59 ml/min; Glucose 122 mg/dl (70-99); Potassium 3.9 mmol/L (3.5-5.1); Sodium 135 mmol/L (135-145); eGFR > 60.00
[2024-02-20 06:46] LABS: APTT 91.3 Sec (23.4-35.0)
[2024-02-20 06:49] LABS: Hematocrit 29.6 % (39.0-52.0); Mean Corp Hgb Conc. 30.4 g/dL (33.0-37.0); Mean Corpuscular Hgb 25.9 pg (27.0-31.0); Mean Corpuscular Volume 85.3 fL (80.0-94.0); Mean Platelet Volume 10.7 fL (7.4-10.4); Platelet Count 320 10^3/uL (130-400); Red Blood Cell Count 3.47 10^6/uL (4.70-6.10); Red Cell Dist. Width 21.9 % (11.5-14.5); White Blood Cell Count 8.5 10^3/uL (4.8-10.8)
[2024-02-20 07:45] LABS: Glucose - Point of Care 111 mg/dl (70-99)
--- NOTE | 2024-02-20 08:20 | W.PN.CD ---
Today's Communication / Plan
-
Bipap overngiht
O2 increased overnight and being weaned back down
bicarb down to 31. patient had received diamox for 3 days
weight down 10-11 KG
Cretine was up to 1.4 and now down to 1.2
can resume oral lasix and keep I/O even and monitor labs
Impression / Plan
-
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
non-healing left foot ulcer/wet gangrene complicated by sepsis now s/p left heal debridement, subsequently complicated by VDRF and hypotension requiring pressor support.
#HFrEF
-Acute on chronic.
-LVEF 35%.
-U/S 02/13/2024 did not favor thoracentesis (small-moderate bilateral effusions).
- furosemide 40 IV BID given this admit and then held. patient given acetazolamide the last 3 days
-Close monitoring of labs, tele, weight.
-Dry weight has not truly been established.
-Continue GDMT with metoprolol.
-He likely needs another surgery. Post op, assess to add back lisinopril, SGLT2i, spironolactone.
#Significant, complex lung disease
-Significant CO2 retention.
-Pulmonology consulted and following.
#Left heal wet gangrene/septic shock/osteomyelitis
-Pre op assessment:
-Patient will likely require amputation.
-Increased risk due to recent heart failure, cardiomyopathy, CAD and afib.
-Considering the importance of surgery with sepsis and osteomyelitis, it is reasonable to proceed with surgery this admission (high, but not prohibitive, risk). Continue to optimize respirator status.
-Continue heparin drip due to prolonged apixaban hold.
#Ischemic cardiomyopathy
-Chronic.
-LVEF = 35%.
-GDMT: will hold GDMT other than Toprol XL pre-operative pending vascular surgery and reintroduce post-operatively as above.
#Nonsustained VT
-Ongoing.
-32 beat run earlier today.
#Permanent Atrial fibrillation
-Chronic.
-Rate control: metoprolol succinate.
-CHADS2-Vasc = 4 (CHF, Age x2, Vascular Disease).
-Therapeutic anticoagulation with heparin drip, then back to apixaban post op.
#Coronary artery disease
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
-Continue ASA/statin.
Subjective:
Delerious overnight. Mitts applied. Cogent this afternoon.
Weight down 2.8 kg, now 100.7 <-- 103.5 (admit weight is 113.4).
Still requiring midflow.
HCO3 falling, now 36.
DATA:
Echo, 02/05/2024:
CONCLUSIONS
Moderately reduced left ventricular systolic function.
Left ventricular ejection fraction is 35% by visual estimate.
Severe hypokinesis of the mid to distal anterior, anteroseptal and apical dahl
c/w a mid LAD infarct.
Severe left atrial enlargement.
No significant valvular disease.
No significant change since the prior study of 09/11/2023.
Cath, 09/13/2023:
1. Right dominant circulation with a 50% lesion in the distal third of the RPDA, a diffusely diseased, small first obtuse marginal, a 30% lesion in the mid ramus, a 40% lesion in the origin of the first diagonal and a chronic total occlusion of the
mid LAD (known since cardiac catheterization in 1999).
2. Normal filling pressures (LVEDP = 10 mmHg, PCWP = 13 mmHg at 105.7 kg).
3. Severely impaired cardiac function (cardiac index = 1.36 L/min/m�, a VO2 difference 8.63 volume percent).
4. Mild precapillary pulmonary hypertension (mean PA pressure = 23 mmHg, PVR = 3.44 Moser units).
5. Significantly elevated peripheral vascular resistance (1787 dynes*seconds*cm^5).
Physical Exam
Vital Signs/Labs
Vital Signs
Temp Pulse Resp BP Pulse Ox
99.2 F 87 12 101/83 95
02/20/24 03:21 02/20/24 06:00 02/20/24 06:00 02/20/24 06:00 02/20/24 07:19
02/20/24 05:24
02/20/24 05:24
PT 27.4 Sec (11.4-14.6) H 01/31/24 08:53
INR 2.50 01/31/24 08:53
APTT 91.3 Sec (23.4-35.0) H 02/20/24 06:15
Magnesium 1.8 mg/dl (1.6-2.3) 02/13/24 03:09
Triglycerides 150 mg/dl (10-149) H 02/05/24 03:31
01/31/24 02/07/24 02/11/24
09:09 04:41 03:56
Oym-L-Lpesfqxsfon Pept [id number]
Physical Exam
Constitutional: No acute distress
Cardiovascular: Rhythm/rate is irregular
Respiratory: Respiratory effort normal
GI: Soft
Neuro/Psych: Alert
Data Reviewed
-
Date of Service: February 20, 2024
Medical Decision Making: Reviewed Test Results
X-Ray/CT/US/MRI/NUC/PET: Report Reviewed by me
Labs: Labs Reviewed by me
--- NOTE | 2024-02-20 08:21 | W.PN.HOSP.TC ---
Addendum entered and electronically signed by Sammy Alfred MD 02/20/24 22:52:
Attending Addendum-
I saw and evaluated the patient. I reviewed the resident�s note and agree with findings and plan as documented in the resident�s note. Sub: Alert and fully oriented.. Seen with daughter present. apparently had a rough night with CIMS and pilling out
lines. Denies pain in LLE. 'chop it off' Full 12 point ROS reviewed and negative except as documented Exam: Vitals reviewed in chart NAD heart GEN-NAD heart irreg irreg lungs crackles at bases abd soft LE trace edema LLE in boot NTTP pulse faint
#Acute on chronic hypoxemic respiratory failure requiring intubation
- 2L nocturnal at home
- due to acute on chronic HFrEF with known EF of 35%, NYHA class III-IV, underlying COPD ERICK/OHS. h/o tob abuse
-extubated 02/04
-cont BIPAP HS
-transition to PO lasix
-Januvia spironolactone and lisinopril on hold
-currently on midflow wean for sats 88-92%
# Severe sepsis secondary to LLE Heel osteomyelitis
-cont Ancef/Flagyl as per ID until 03/09 or amputation
-cont heparin gtt
-Lt BKA on Monday- medically optimized
-NPOpMN
# Acute Delirium / TME
- from infection
-
- add risperdal and melatonin
- appreciate psych input
# Permanent atrial fibrillation
-cont metoprolol/Eliquis
# RAUL on CKD3b
- baseline @ 1.3
- resolved
- monitor BMP
- transition to PO lasix
# DM2: a1c 6.4%,
- cont SSI/accuchecks
- better controlled
- 1/2 dose lantus while NPO
- cont L20/N6 after OR
# PVD- s/p SFA stent
# GERD- cont famotidine
DNR/heparin gtt
Time spent coordinating care, review of plan of care with resident, personally reviewed records in EMR, med rec, consults, notes, labs, radiology, d/w nursing, daughter � 55 mins
Original Note:
Today's Communication/Plan
-
half basal insulin, q6h ssi, NPO after midnight for BKA tomorrow
Assessment / Plan
Assessment / Plan
Mr. Shar Wiggins is a 73yo pmh HFrEF (EF 30-35%), CKD stage 3b, IDDM, PAD, permanent afib, pulm htn, COPD admitted for an infected L foot plantar ulcer.
Acute on chronic HFrEF
- echo 09/26: EF 30-35%
- likely secondary to sepsis in setting of pre-existing CAD and CHF
- cardiology following
- trend daily weights, I's&O's, renal function
Sepsis secondary to osteomyelitis
- sepsis resolved, still treating osteomyelitis
- L heel bone bx - MSSA
- Cefazolin day 17 and metronidazole day 15
- ID following
- BKA tentatively scheduled for 02/20
- RCRI 3
- pt medically optimized for procedure
COPD
Ventilator dependent respiratory failure
Acute on chronic hypoxic respiratory failure
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
- extubated on 02/05/24
- received diamox x3 days
- on BiPAP
- incentive spirometry
- wean O2 as possible to SpO2 88-92%
Permanent A-fib
- on eliquis, metoprolol
Type 2 diabetes mellitus
- HbA1c at 6.4.
- basal insulin cut in half for prior to surgery, q6h SSI
[facility] acquired delirium/agitation
- Delirium precautions
- Reorientation
- psych consulted - risperidone, melatonin
Anemia
- Hb stable
- no active bleeds
- monitor
Diet: NPO after midnight
DVT prophylaxis: Eliquis
CODE STATUS: DNR
Anticipated Discharge: 24 - 48 hours
Subjective/Interval History
-
Date of Service: February 20, 2024
Mr. Shar Wiggins is a 73yo pmh HFrEF (EF 30-35%), CKD stage 3b, IDDM, PAD, permanent afib, pulm htn, COPD admitted for an infected L foot plantar ulcer. Became agitated again overnight, ativan did not help. Family is interested in alternative
options.
Objective Data
-
Labs:
Laboratory Results
02/19/24 02/19/24 02/20/24
20:03 21:17 05:24
WBC 8.5
Hgb 9.0 L
Hct 29.6 L
Plt Count 320 D
APTT Cancelled 92.1 H
Sodium 135
Potassium 3.9
Chloride 96 L
Carbon Dioxide 31 H
BUN 21 H
Creatinine 1.2
Glucose 122 H
Calcium 8.4
02/20/24
06:15
WBC
Hgb
Hct
Plt Count
APTT 91.3 H
Sodium
Potassium
Chloride
Carbon Dioxide
BUN
Creatinine
Glucose
Calcium
Vital Signs:
Vital Signs
Temp Pulse Resp BP Pulse Ox
99.2 F 87 12 101/83 95
02/20/24 03:21 02/20/24 06:00 02/20/24 06:00 02/20/24 06:00 02/20/24 07:19
I&O
02/19/24 02/20/24 02/21/24
06:59 06:59 06:59
Intake Total 1071 / 1071 240 / 240
Output Total 525 / 525 1050 / 1050
Balance 546 / 546 -810 / -810
Review of Systems
-
History Source: Patient and Family
Constitutional: Reports No Symptoms
EENT: Reports No Symptoms Reported
Respiratory: Reports No Symptoms
Cardiac: Reports No Symptoms
Abdomen/GI: Reports No Symptoms
Genitourinary: Reports No Symptoms
Musculoskeletal: Reports No Symptoms
Skin: Reports No Symptoms
Neuro: Reports No Symptoms
Psych: Reports Other (agitation)
Physical Exam
-
General: Well Developed and Well Nourished
HEENT: Normocephalic, Atraumatic and Moist Mucous Membranes
Respiratory: Clear to Auscultation and Other (on 6L midflow)
Cardiac: S1/S2 and Irregular Rhythm; Negative Murmur, Rub or Gallop
GI: Soft, Nontender, Nondistended and Normal Bowel Sounds
Musculoskeletal: No Clubbing, No Cyanosis and No Edema
Skin: Warm and Dry
Neuro: AO x 3
Psych: Calm
--- NOTE | 2024-02-20 08:56 | PN.DE.MGMTRT ---
Insulin Management
- -
02/20/2024: Diabetes management Follow up:
73 years old male with multiple comorbidities admitted to the hospital on 01/27 with sepsis due to left foot plantar infected ulcer 2/2 diabetic foot ulcer and peripheral vascular disease S/P left heal debridement. Diabetes consult requested on 02/04
for Hyperglycemia.
PMH: HTN, HLD, CAD, PVD, CHF, COPD and T2DM. Was taking Jardiance 10mg daily, Tresiba 45 units daily, metformin 1000mg BID and NovoLog 7-20 units AC. A1C 6.4%, Cr 1.5, eGFR 48.25. 01/30 started on tube feeds contributing to Hyperglycemia. 02/01 was
initiate on CC glycemic protocol, developed hypoglycemia on 02/03 while on insulin drip. Was transitioned off on 02/03 to SQ insulin- HS Lantus 5 units and moderate corrective only by Dr. Marcano.
Glucose has remained elevated since transition, 241 to 415, requiring high doses 3-9 units of corrective insulin.
Pt more alert today able to participate in diabetes discussion. Has resumed eating meals.
Per Vascular surgeon, OR tissue cultures of bone-->Staph aureus (confirming osteomyelitis)
02/18 Glucose improved with the addition of AC novolog 5 units but not at goal, range 139 to 265. Will increase AC novolog 6 units with corrective insulin and lantus 20 units @ hs.
02/19 Fasting glucose 111 this AM, cr 1.2, eGFR > 60. Will make no change to current regimen, 6 units novolog AC with 20 units lantus @ hs.
Patient for OR Monday. Will follow.
Discussed with patients nurse.
Diabetes History
- -
Type of Diabetes: 2 requiring insulin
Pre-Admission Diabetes Regimen
02/20/24
05:24
Creatinine 1.2
Lab Results
Hemoglobin A1c 6.4 % (4.0-5.6) H 01/29/24 07:22
Insulin Pump Settings
IP Diabetes Regimen
02/19/24 02/19/24 02/19/24
10:03 12:45 15:50
Glucose
POC Glucose 140 H 173 H 172 H
02/19/24 02/19/24 02/20/24
17:30 21:32 05:24
Glucose 122 H
POC Glucose 199 H 153 H
02/20/24
07:34
Glucose
POC Glucose 111 H
Meal type: Breakfast
Amount consumed: 90%
Patient Education
[2024-02-20] MEDS: NOVOLOG FLEXPEN 6 UNITS SC ×3 (09:01→17:48)
[2024-02-20] MEDS: NOVOLOG FLEXPEN-LOW RESISTANCE SC ×3 (09:01→17:49)
[2024-02-20] MEDS: DESENEX/MITRAZOL/ZEASORB 1 APPLIC TOPICAL ×2 (09:02→20:21)
[2024-02-20] MEDS: FLAGYL 500 MG PO ×2 (09:02→20:20)
[2024-02-20] MEDS: LOW STRENGTH ASPIRIN 81 MG TUBE (09:02)
[2024-02-20] MEDS: TOPROL XL 50 MG PO ×2 (09:02→20:21)
--- NOTE | 2024-02-20 09:04 | W.PN.ID1 ---
Date of Service
Date of Service: February 20, 2024
Today's Communication
- c/w cefazolin and metronidazole - infection controlled, ongoing antibiotics for underlying osteomyelitis
- has PICC - to be removed prior to dc
- planned for amputation of foot when medically optimized - possibly next week, then would stop antibiotics; alternatively stop antibiotics 03/09/24 whichever is sooner
Assessment / Plan
Osteomyelitis of the L heel
Left heel ulcer with wet gangrene s/p debridement to bone
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
RAUL on CKD
Class II obesity
- 01/28 tissue culture with MSSA, no anaerobic culture done
- c/w cefazolin and metronidazole - infection controlled, ongoing antibiotics for underlying osteomyelitis
- has PICC - to be removed prior to dc
- planned for amputation of foot when medically optimized - possibly next week, then would stop antibiotics; alternatively stop antibiotics 03/09/24 whichever is sooner
����������������������������������������������������������
Chief Complaint
-: Other (calcaneal osteomyelitis, L foot)
Subjective / Review of Systems
afebrile
bp stable
difficulties tolerating bipap ongoing
possible BKA tomorrow
Vital Signs / Physical Exam
Vital Signs
Vital Signs
Temp Pulse Resp BP Pulse Ox
99.2 F 87 12 101/83 95
02/20/24 03:21 02/20/24 06:00 02/20/24 06:00 02/20/24 06:00 02/20/24 07:19
Physical Exam
Constitutional: No Acute Distress
Cardiovascular: Regular Rate and S1/S2; Negative Murmur or Rub
Pulmonary: Clear and Symmetric; Negative Wheezes or Rales
Gastrointestinal: Soft, Non Tender, Non Distended and Normal Bowel Sounds
Skin: Warm and Dry; Negative Rash or Jaundice
Wound: Other (deferred dressing take down today)
Objective Data
Lab Data
Lab Results
02/20/24 05:24
02/20/24 05:24
ESR 95 mm/hour (0-20) H 01/28/24 07:14
PT 27.4 Sec (11.4-14.6) H 01/31/24 08:53
INR 2.50 01/31/24 08:53
APTT 91.3 Sec (23.4-35.0) H 02/20/24 06:15
Estimated Creat Clear 59 ml/min 02/20/24 05:24
Lactic Acid 1.1 mmol/L (0.7-2.0) 01/31/24 04:35
Total Bilirubin 0.5 mg/dl (0.2-1.3) 02/07/24 04:41
AST 34 U/L (17-59) 02/07/24 04:41
ALT 15 U/L (0-50) 02/07/24 04:41
Alkaline Phosphatase 160 U/L (38-126) H 02/07/24 04:41
C-Reactive Protein > 270.00 mg/L (0.0-10.00) H 01/28/24 07:41
Most recent labs reviewed.
Micro Results:
02/06/24 10:25 C. difficile GDH Antigen & Toxins - Final
Feces/Stool Negative for toxigenic C.difficile
- Final
Negative for Norovirus GI and GII.
01/31/24 12:12 Blood Culture - Final
Blood/Venous No Growth - Final Report
01/31/24 11:15 Blood Culture - Final
Blood/Venous No Growth - Final Report
01/28/24 12:25 Blood Culture - Final
Blood/Venous No Growth - Final Report
01/29/24 15:30 Tissue Culture - Final
Foot - Left S aureus-Methicillin Sensitive
Gram Stain - Final
01/28/24 14:04 MRSA Screen - Final
Nose No Methicillin Resistant Staphylococcus aureus isolated.
[2024-02-20] MEDS: TYLENOL 650 MG PO ×2 (09:43→17:49)
[2024-02-20] MEDS: MIRALAX 17 GRAMS PO (09:45)
[2024-02-20 11:38] LABS: NT-proBNP 3940 pg/ml
[2024-02-20 12:13] LABS: Glucose - Point of Care 116 mg/dl (70-99)
--- NOTE | 2024-02-20 13:50 | WOUNDNOTE ---
SERGIO RN NOTE: Followed up today along with nurse Maci. Patient turned to R side with 1 assist, sacral/coccyx ulcer appears more macerated but same size compared to last picture. Will update wound care to include silver alginate and cover with either
an Exuderm thin or foam. Will confirm order with hospitalist and update care plan. L heel/foot dressing changed with nurse, for amputation of foot when stable. Recommend keep on air mattress if transferred to floor. Patient using fiber filled
offloading heel boot for L foot, R heel dry but intact. Will follow as needed.
[2024-02-20] MEDS: HEPARIN 25000 UNITS/250 ML IV (13:57)
--- NOTE | 2024-02-20 16:26 | W.PN.UPDATE ---
Update Note
Progress Note Update
Pt seen with dtr present, reviewed with nursing staff. Pt continues to be somewhat confused, restless overnight, pulling at lines, had to be placed in mitts. Breathes better with BiPAP, but nursing staff report Ativan is not adequate; dtr states
it seemed to make pt worse/did not help. Discussed alternatives for agitation, risks/benefits with pt and dtr. Pt starting to fidget with his IV and O2 line. Pt calm, not anxious, despite plan for BKA tomorrow. QTc has been in the 480's.
Imp: Delirium, multifactorial, with agitation. Not responding well to prn Ativan
Rec: Will try low-dose Risperidone prn, as well as melatonin. Will follow
[2024-02-20 17:28] LABS: Glucose - Point of Care 116 mg/dl (70-99)
[2024-02-20] MEDS: LIPITOR 80 MG PO (17:49)
[2024-02-20] MEDS: LANTUS 0.1 UNITS SC (17:56)
--- NOTE | 2024-02-20 19:20 | PTCARENOTE ---
OOB this am x 2.5 hours-via transfer board. Restless in bed at times. Turning freq on own then gets wires all mixed up and needs repositioning with staff. and Daughters present throughout the day. O2 remains at 6L pox waxes and wanes
88-95%. - (attempted 4L unsuccessfully po x85%. )
AF on tele- BP adequate. Tylenol given x2 this shift for pain mostly buttock. Voided x2 in urinal other times incontinent. +BM today. Wound care assisted with WOC- pics taken.
[2024-02-20] MEDS: PEPCID 20 MG PO (20:20)
[2024-02-20] MEDS: RISPERDAL M-TAB (ORALLY DISINTEGRATING) 0.5 MG PO (20:20)
[2024-02-20] MEDS: MELATONIN 3 MG PO (20:21)
[2024-02-20] MEDS: ROXICODONE 5 MG PO (20:31)
[2024-02-20 22:18] LABS: Glucose - Point of Care 169 mg/dl (70-99)
[2024-02-21] VITALS (17 sets, daily range): BP systolic 93–152; BP diastolic 59–120; PULSE 2–85
--- NOTE | 2024-02-21 01:40 | PTCARENOTE ---
Pt AAOx2, disoriented to time. Restless at time. RT put on BiPAP HS. O2 sat 98%. A-fib on tele. Pt had 7/10 pain in his back at beginning of the shift, Tylenol ineffective, administered Ksenia. Pt no complaints of pain. Due to increased restlessness
and multiple attempts to remove BiPAP, PRN Risperidone given. Pt does not seem to respond to treatment and is still reaching for BiPAP. 1:1 PCT present as well as medsitter. Voiding in the urinal. One small smear BM in bed lobo. Pt tolerating turns
Q2 hours. Pt NPO since midnight. Oral care complete, lip care done. Cloth bath given. Pt to OR tomorrow. Pt has call castellon within reach.
[2024-02-21] MEDS: ANCEF 10 IV ×3 (01:56→17:11)
[2024-02-21 04:08] LABS: Hematocrit 30.2 % (39.0-52.0); Hemoglobin 9.2 g/dL (13.0-18.0); Mean Corp Hgb Conc. 30.5 g/dL (33.0-37.0); Mean Corpuscular Hgb 26.6 pg (27.0-31.0); Mean Corpuscular Volume 87.3 fL (80.0-94.0); Mean Platelet Volume 10.6 fL (7.4-10.4); Platelet Count 318 10^3/uL (130-400); Red Blood Cell Count 3.46 10^6/uL (4.70-6.10); Red Cell Dist. Width 21.9 % (11.5-14.5); White Blood Cell Count 7.7 10^3/uL (4.8-10.8)
[2024-02-21 04:17] LABS: INR 1.39; PT 17.3 Sec (11.4-14.6)
[2024-02-21 04:19] LABS: APTT 75.1 Sec (23.4-35.0)
[2024-02-21 04:34] LABS: Blood Urea Nitrogen 22 mg/dl (9-20); Calcium 8.9 mg/dl (8.4-10.2); Carbon Dioxide 34 mmol/L (22-30); Chloride 96 mmol/L (98-107); Estimated Creatinine Clearance 55 ml/min; Glucose 136 mg/dl (70-99); Potassium 4.1 mmol/L (3.5-5.1); Sodium 136 mmol/L (135-145); eGFR 57.29
[2024-02-21 07:10] LABS: Glucose - Point of Care 137 mg/dl (70-99)
--- NOTE | 2024-02-21 08:00 | PTCARENOTE ---
Assumed care of patient this AM. Patient NPO overnight for surgery this afternoon. Heparin drip discontinued at 6AM as per MD order. Patent confused and restless this morning. Medsitter and bed alarm on. VS stable. Afib on monitor. Will
continue to monitor frequently.
--- NOTE | 2024-02-21 08:01 | W.PN.HOSP.TC ---
Addendum entered and electronically signed by Sammy Alfred MD 02/21/24 21:22:
Attending Addendum-
I saw and evaluated the patient. I reviewed the resident�s note and agree with findings and plan as documented in the resident�s note. Sub: Alert and fully oriented. to start then intermittent confusion after speaking. Seen with daughter and wofe
present. apparently had a rough night with insomnia risperal given with no effect. Denies pain in LLE. Full 12 point ROS reviewed and negative except as documented Exam: Vitals reviewed in chart NAD heart GEN-NAD heart irreg irreg lungs crackles
at bases abd soft LE trace edema LLE in boot NTTP pulse faint
#Acute on chronic hypoxemic respiratory failure requiring intubation
- 2L nocturnal at home
- due to acute on chronic HFrEF with known EF of 35%, NYHA class III-IV, underlying COPD ERICK/OHS. h/o tob abuse
- extubated 02/04
- cont BIPAP HS
- transitioned to to PO lasix
- Januvia spironolactone and lisinopril on hold
- currently on 4 midflow, wean for sats 88-92%
# Severe sepsis secondary to LLE Heel osteomyelitis
-cont Ancef/Flagyl as per ID until 03/09 or amputation
-cont heparin gtt
-Lt BKA on 02/21
-NPOpMN
# Acute Delirium / TME
- intermittent confusion
- likely from infection
-
- cont risperdal prn and increase melatonin
- appreciate psych input
# Permanent atrial fibrillation
- cont metoprolol
- cont hep gtt
- hold eliquis
# RAUL on CKD3b
- baseline @ 1.3
- resolved
- monitor BMP
- transitioned to PO lasix
# DM2: a1c 6.4%,
- cont SSI/accuchecks
- better controlled
- 1/2 dose lantus while NPO
- cont L20/N6 after OR
# PVD- s/p SFA stent
# GERD- cont famotidine
DNR/heparin gtt
Time spent coordinating care, review of plan of care with resident, personally reviewed records in EMR, med rec, consults, notes, labs, radiology, d/w nursing, daughter, � 56 mins
Original Note:
Today's Communication/Plan
-
.
Assessment / Plan
Assessment / Plan
Mr. Shar Wiggins is a 73yo pmh HFrEF (EF 30-35%), CKD stage 3b, IDDM, PAD, permanent afib, pulm htn, COPD admitted for an infected L foot plantar ulcer.
Acute on chronic HFrEF
- echo 09/26: EF 30-35%
- likely secondary to sepsis in setting of pre-existing CAD and CHF
- cardiology following
- trend daily weights, I's&O's, renal function
Sepsis secondary to osteomyelitis
- sepsis resolved, still treating osteomyelitis
- L heel bone bx - MSSA
- Cefazolin day 18 and metronidazole day 16
- ID following
- BKA tentatively scheduled for 02/20
- RCRI 3
- pt medically optimized for procedure
COPD
Ventilator dependent respiratory failure
Acute on chronic hypoxic respiratory failure
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
- extubated on 02/05/24
- received diamox x3 days
- on BiPAP
- incentive spirometry
- wean O2 as possible to SpO2 88-92%
Permanent A-fib
- metoprolol
Type 2 diabetes mellitus
- HbA1c at 6.4.
- basal insulin cut in half for prior to surgery, q6h SSI
[place] acquired delirium/agitation
- Delirium precautions
- Reorientation
- psych consulted - risperidone, melatonin
Anemia
- Hb stable
- no active bleeds
- monitor
Diet: NPO after midnight
DVT prophylaxis: held for surgery
CODE STATUS: DNR
Anticipated Discharge: > 48 hours
Subjective/Interval History
-
Date of Service: February 21, 2024
Mr. Shar Wiggins is a 73yo pmh HFrEF (EF 30-35%), CKD stage 3b, IDDM, PAD, permanent afib, pulm htn, COPD admitted for an infected L foot plantar ulcer. Did not sleep well overnight. Increased to 10L O2 midflow overnight. Surgery tentatively
scheduled for 1:30 today. Daughter and pt are concerned about pt desaturating after extubation. Requesting he be put on bipap after extubation, even if he refuses as he will still be under the anesthesia effects.
Objective Data
-
Labs:
Laboratory Results
02/21/24 02/21/24
03:41 03:42
WBC 7.7
Hgb 9.2 L
Hct 30.2 L
Plt Count 318
PT 17.3 H
INR 1.39
APTT 75.1 H
Sodium 136
Potassium 4.1
Chloride 96 L
Carbon Dioxide 34 H
BUN 22 H
Creatinine 1.3
Glucose 136 H
Calcium 8.9
Vital Signs:
Vital Signs
Temp Pulse Resp BP Pulse Ox
97.6 F 72 16 116/73 100
02/21/24 02:56 02/21/24 06:00 02/21/24 06:00 02/21/24 06:00 02/21/24 06:00
I&O
02/20/24 02/21/24 02/22/24
06:59 06:59 06:59
Intake Total 240 / 240 1580 / 1580
Output Total 1050 / 1050 1600 / 1600
Balance -810 / -810 -20 / -20
Review of Systems
-
History Source: Patient
Constitutional: Reports No Symptoms
EENT: Reports No Symptoms Reported
Respiratory: Reports No Symptoms
Cardiac: Reports No Symptoms
Abdomen/GI: Reports No Symptoms
Genitourinary: Reports No Symptoms
Musculoskeletal: Reports No Symptoms
Neuro: Reports No Symptoms
Physical Exam
-
General: Well Developed and Well Nourished
HEENT: Normocephalic, Atraumatic, Moist Mucous Membranes, Anicteric and Oxygen (6L O2 midflow)
Respiratory: Clear to Auscultation and Non Labored Respirations
Cardiac: Regular Rhythm and S1/S2; Negative Murmur, Rub or Gallop
GI: Soft, Nontender, Nondistended and Normal Bowel Sounds
Musculoskeletal: Other (diminished L pedal pulse)
Neuro: Awake and Alert
Psych: Calm
--- NOTE | 2024-02-21 08:08 | PN.DE.MGMTRT ---
Insulin Management
- -
02/21/2024: Diabetes management Follow up:
73 years old male with multiple comorbidities admitted to the hospital on 01/27 with sepsis due to left foot plantar infected ulcer 2/2 diabetic foot ulcer and peripheral vascular disease S/P left heal debridement. Diabetes consult requested on 02/04
for Hyperglycemia.
PMH: HTN, HLD, CAD, PVD, CHF, COPD and T2DM. Was taking Jardiance 10mg daily, Tresiba 45 units daily, metformin 1000mg BID and NovoLog 7-20 units AC. A1C 6.4%.
Per Vascular surgeon, OR tissue cultures of bone-->Staph aureus (confirming osteomyelitis)
Pt sleeping at the time of my visit unable to participate in diabetes discussion. He has intermittent periods of confusion. NPO for OR today.
02/19 Fasting glucose 111 this AM, cr 1.2, eGFR > 60. Patient received 10 units lantus @ hs for OR 02/20.
02/20 NPO for OR glucose this AM 137. Resident has ordered 10 units lantus this AM, nurse clarified order, given.
Will follow after OR.
Discussed with patients nurse.
Diabetes History
- -
Type of Diabetes: 2 requiring insulin
Pre-Admission Diabetes Regimen
02/21/24
03:41
Creatinine 1.3
Lab Results
Hemoglobin A1c 6.4 % (4.0-5.6) H 01/29/24 07:22
Insulin Pump Settings
IP Diabetes Regimen
02/20/24 02/20/24 02/20/24
12:02 17:17 22:05
Glucose
POC Glucose 116 H 116 H 169 H
02/21/24 02/21/24
03:41 06:59
Glucose 136 H
POC Glucose 137 H
Meal type: Breakfast
Amount consumed: 100%
Patient Education
[2024-02-21] MEDS: NOVOLOG FLEXPEN-LOW RESISTANCE SC ×2 (08:09→16:40)
--- NOTE | 2024-02-21 08:33 | W.PN.CD ---
Today's Communication / Plan
-
still with signficant O2 requirements
continue current diuretics and continue with afib rate control
Impression / Plan
-
Impression/Plan: 73 y/o male (known to Dr. Alvarez, his primary [employer]) with HTN, HLD, IDDM, COPD, permanent atrial fibrillation (on apixaban), CAD with ICMO, PAD [facility], and obesity admitted with
non-healing left foot ulcer/wet gangrene complicated by sepsis now s/p left heal debridement, subsequently complicated by VDRF and hypotension requiring pressor support.
#HFrEF
-Acute on chronic.
-LVEF 35%.
-U/S 02/13/2024 did not favor thoracentesis (small-moderate bilateral effusions).
- furosemide 40 IV BID given this admit and then held. patient given acetazolamide the last 3 days
-Close monitoring of labs, tele, weight.
-Dry weight has not truly been established.
-Continue GDMT with metoprolol.
-He likely needs another surgery. Post op, assess to add back lisinopril, SGLT2i, spironolactone.
#Significant, complex lung disease
-Significant CO2 retention.
-Pulmonology consulted and following.
#Left heal wet gangrene/septic shock/osteomyelitis
-Pre op assessment:
-Patient will likely require amputation.
-Increased risk due to recent heart failure, cardiomyopathy, CAD and afib.
-Considering the importance of surgery with sepsis and osteomyelitis, it is reasonable to proceed with surgery this admission (high, but not prohibitive, risk). Continue to optimize respirator status.
-Continue heparin drip due to prolonged apixaban hold.
#Ischemic cardiomyopathy
-Chronic.
-LVEF = 35%.
-GDMT: will hold GDMT other than Toprol XL pre-operative pending vascular surgery and reintroduce post-operatively as above.
#Nonsustained VT
-Ongoing.
-32 beat run earlier today.
#Permanent Atrial fibrillation
-Chronic.
-Rate control: metoprolol succinate.
-CHADS2-Vasc = 4 (CHF, Age x2, Vascular Disease).
-Therapeutic anticoagulation with heparin drip, then back to apixaban post op.
#Coronary artery disease
-Chronic, old IN with LAD [employer].
-Continue ASA/statin.
Subjective:
Delerious overnight. Mitts applied. Cogent this afternoon.
Weight down 2.8 kg, now 100.7 <-- 103.5 (admit weight is 113.4).
Still requiring midflow.
HCO3 falling, now 36.
DATA:
Echo, 02/05/2024:
CONCLUSIONS
Moderately reduced left ventricular systolic function.
Left ventricular ejection fraction is 35% by visual estimate.
Severe hypokinesis of the mid to distal anterior, anteroseptal and apical dahl
c/w a mid LAD infarct.
Severe left atrial enlargement.
No significant valvular disease.
No significant change since the prior study of 09/11/2023.
Cath, 09/13/2023:
1. Right dominant circulation with a 50% lesion in the distal third of the RPDA, a diffusely diseased, small first obtuse marginal, a 30% lesion in the mid ramus, a 40% lesion in the origin of the first diagonal and a chronic total occlusion of the
mid LAD (known since cardiac catheterization in 1999).
2. Normal filling pressures (LVEDP = 10 mmHg, PCWP = 13 mmHg at 105.7 kg).
3. Severely impaired cardiac function (cardiac index = 1.36 L/min/m�, a VO2 difference 8.63 volume percent).
4. Mild precapillary pulmonary hypertension (mean PA pressure = 23 mmHg, PVR = 3.44 Moser units).
5. Significantly elevated peripheral vascular resistance (1787 dynes*seconds*cm^5).
Physical Exam
Vital Signs/Labs
Vital Signs
Temp Pulse Resp BP Pulse Ox
97.6 F 72 16 116/73 93
02/21/24 02:56 02/21/24 06:00 02/21/24 06:00 02/21/24 06:00 02/21/24 08:06
02/21/24 03:42
02/21/24 03:41
PT 17.3 Sec (11.4-14.6) H 02/21/24 03:41
INR 1.39 02/21/24 03:41
APTT 75.1 Sec (23.4-35.0) H 02/21/24 03:41
Magnesium 1.8 mg/dl (1.6-2.3) 02/13/24 03:09
Triglycerides 150 mg/dl (10-149) H 02/05/24 03:31
01/31/24 02/07/24 02/11/24
09:09 04:41 03:56
Tqe-C-Nysbdcsweqm Pept 33311 6410 7400
02/20/24
05:24
Tar-O-Playawtnxlk Pept 3940
Physical Exam
Constitutional: No acute distress
Cardiovascular: Rhythm & rate is regular
Respiratory: Wheeze Absent and Rhonchi Absent
GI: Soft and Non tender
Neuro/Psych: Alert
Data Reviewed
-
Date of Service: February 21, 2024
Medical Decision Making: Reviewed Test Results
X-Ray/CT/US/MRI/NUC/PET: Report Reviewed by me
Medical Tests (PFT, Pathology etc): Image Personally Visualized and interpreted
Labs: Labs Reviewed by me
[2024-02-21] MEDS: TOPROL XL 50 MG PO ×2 (10:02→20:01)
[2024-02-21] MEDS: LANTUS 0.1 UNITS SC (10:02)
[2024-02-21] MEDS: FLAGYL 500 MG PO ×2 (10:02→20:01)
[2024-02-21] MEDS: FLUSH (NSS) 1 FLUSH IV (10:03)
--- NOTE | 2024-02-21 10:37 | CM ---
Addendum entered by Lisa Watson 02/21/24 15:07:
Chart reviewed: Anticipated Discharge: > 48 hours
Original Note:
BKA scheduled for today.
PT recommends SNF when stable for discharge; and will need to be able to provide/support BiPAP.
Per Jailene from [facility], [facility] will only provide BiPAP when he goes home.
[facility] unable to accept.
Updated Clinicals sent to Referral sites
Plan: discharge to SNF pending bed availability when medically stable
--- NOTE | 2024-02-21 10:38 | PTCARENOTE ---
Patient blood sugar this AM 137. 10 units of lantus given as per MD order.
--- NOTE | 2024-02-21 11:06 | W.PN.UPDATE ---
Addendum entered and electronically signed by Cash Castillo MD 02/21/24 17:33:
Seen and evaluated earlier this a.m. Plan unfortunately shifted as noted below. Discussed with patient's over the phone. Discussed with her plan for procedure and obtained telephone verbal consent for left below the knee amputation. She
understands all wishes to proceed. Plan OR tomorrow a.m.
Original Note:
Update Note
Progress Note Update
Due to addition of other emergent/urgent OR cases, will be moving this patient's left BKA to tomorrow 02/22/[address] Cash Castillo. Patient and daughter updated at bedside, all are in agreement. Will order patient diet and restart heparin
infusion. N.p.o. at midnight. Hospitalist updated via [place] text.
[2024-02-21 11:58] LABS: Glucose - Point of Care 141 mg/dl (70-99)
[2024-02-21] MEDS: HEPARIN 25000 UNITS/250 ML IV (11:59)
--- NOTE | 2024-02-21 12:08 | PTCARENOTE ---
OR cancelled for today. Patient will be the first case tomorrow. Patient will be NPO after midnight.
--- NOTE | 2024-02-21 12:54 | PTCARENOTE ---
Heparin drip restarted at 1100 units/11 mls/hr. PTT to drawn at 1800.
--- NOTE | 2024-02-21 12:56 | W.PN.ID1 ---
Date of Service
Date of Service: February 21, 2024
Today's Communication
- c/w cefazolin and metronidazole - infection controlled, ongoing antibiotics for underlying osteomyelitis
- has PICC - to be removed prior to dc
- planned for amputation of foot when medically optimized - possibly tomorrow, then would stop antibiotics; alternatively stop antibiotics 03/09/24 whichever is sooner
Assessment / Plan
Osteomyelitis of the L heel
Left heel ulcer with wet gangrene s/p debridement to bone
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
RAUL on CKD
Class II obesity
- 01/28 tissue culture with MSSA, no anaerobic culture done
- c/w cefazolin and metronidazole - infection controlled, ongoing antibiotics for underlying osteomyelitis
- has PICC - to be removed prior to dc
- planned for amputation of foot when medically optimized - possibly tomorrow, then would stop antibiotics; alternatively stop antibiotics 03/09/24 whichever is sooner
����������������������������������������������������������
Chief Complaint
-: Other (calcaneal osteomyelitis, L foot)
Subjective / Review of Systems
afebrile
bp stable
still with significant o2 requirement
Vital Signs / Physical Exam
Vital Signs
Vital Signs
Temp Pulse Resp BP Pulse Ox
98.2 F 72 19 113/91 93
02/21/24 11:29 02/21/24 08:10 02/21/24 08:10 02/21/24 08:10 02/21/24 08:06
Physical Exam
Constitutional: No Acute Distress and Chronically Ill
Cardiovascular: Regular Rate and S1/S2; Negative Murmur or Rub
Pulmonary: Clear and Symmetric; Negative Wheezes or Rales
Gastrointestinal: Soft, Non Tender, Non Distended and Normal Bowel Sounds
Skin: Warm and Dry; Negative Rash or Jaundice
Objective Data
Lab Data
Lab Results
02/21/24 03:42
02/21/24 03:41
ESR 95 mm/hour (0-20) H 01/28/24 07:14
PT 17.3 Sec (11.4-14.6) H 02/21/24 03:41
INR 1.39 02/21/24 03:41
APTT 75.1 Sec (23.4-35.0) H 02/21/24 03:41
Estimated Creat Clear 55 ml/min 02/21/24 03:41
Lactic Acid 1.1 mmol/L (0.7-2.0) 01/31/24 04:35
Total Bilirubin 0.5 mg/dl (0.2-1.3) 02/07/24 04:41
AST 34 U/L (17-59) 02/07/24 04:41
ALT 15 U/L (0-50) 02/07/24 04:41
Alkaline Phosphatase 160 U/L (38-126) H 02/07/24 04:41
C-Reactive Protein > 270.00 mg/L (0.0-10.00) H 01/28/24 07:41
Most recent labs reviewed.
Micro Results:
02/06/24 10:25 C. difficile GDH Antigen & Toxins - Final
Feces/Stool Negative for toxigenic C.difficile
- Final
Negative for Norovirus GI and GII.
01/31/24 12:12 Blood Culture - Final
Blood/Venous No Growth - Final Report
01/31/24 11:15 Blood Culture - Final
Blood/Venous No Growth - Final Report
01/28/24 12:25 Blood Culture - Final
Blood/Venous No Growth - Final Report
01/29/24 15:30 Tissue Culture - Final
Foot - Left S aureus-Methicillin Sensitive
Gram Stain - Final
01/28/24 14:04 MRSA Screen - Final
Nose No Methicillin Resistant Staphylococcus aureus isolated.
[2024-02-21] MEDS: LOW STRENGTH ASPIRIN TUBE (13:43)
--- NOTE | 2024-02-21 14:25 | W.PN.UPDATE ---
Update Note
Progress Note Update
patient seen chart reviewed. discussed w nursing. and daughter at bedside. the patient was quiet but appropriately interactive. patient was anticipating surgery today but it was postponed until tomorrow given issues within the OR not with
patient himself. patient and family seem to be trying to look on the bright side...that the surgery will be first thing. patient admits he is anxious but he is trying to be optimistic re outcome. patient has had some difficulty with agitation in
the evenings/nights. d reports she spoke to [facility] during the night last night and while patient did not sleep '(d says ' he never sleeps') he remained calm and cooperative throughout the night w risperdal. d feels the ativan did not do anything to
help him remain calm. for now melatonin inc to 5 mg. left risperdal in place. ativan is also there but would use risperdal first if patient becomes agitated. patient was able to converse a bit more about his life. he has three daughters and three
little grandsons whom he really enjoys. also told me about his life prior to care home. will follow
[2024-02-21] MEDS: ROXICODONE 5 MG PO (15:28)
[2024-02-21] MEDS: LASIX 40 MG PO (15:28)
[2024-02-21] MEDS: DESENEX/MITRAZOL/ZEASORB 1 APPLIC TOPICAL ×2 (15:28→20:06)
[2024-02-21 15:44] LABS: Glucose - Point of Care 241 mg/dl (70-99)
[2024-02-21] MEDS: NOVOLOG FLEXPEN-LOW RESISTANCE 2 UNITS SC (17:10)
[2024-02-21] MEDS: FLUSH (NSS) 2 FLUSH IV (17:11)
[2024-02-21] MEDS: LIPITOR 80 MG PO (17:11)
[2024-02-21 18:47] LABS: APTT 54.3 Sec (23.4-35.0)
[2024-02-21] MEDS: PEPCID 20 MG PO (20:01)
[2024-02-21] MEDS: MELATONIN 5 MG PO (21:03)
[2024-02-21 21:26] LABS: Glucose - Point of Care 216 mg/dl (70-99)
[2024-02-21] MEDS: RISPERDAL M-TAB (ORALLY DISINTEGRATING) 0.5 MG PO (21:57)
--- NOTE | 2024-02-21 22:37 | PTCARENOTE ---
Addendum entered by Marce Campa RN 02/21/24 23:16:
Daughter updated, states mitts has helped in the past. Daughter is aware how confused and agitated the patient gets at night. Order for bilateral mitts obtained from JESSICA and placed on patient. Pt educated on the importance of keeping his oxygen on.
pt needs continued reinforcement. 1:1 sitter and med sitter at bedside for safety.
Original Note:
Patient fell asleep around 1999. RT placed patient on Bipap. Pt ripped off Bipap about 30 minutes later, breaking the straps on the mask. Pt demanding the mask be placed back on and becoming restless and agitated. RT placed mask back on. About 10
minutes later Pt demanding the mask doesn't fit right and wants it off. RT at bedside and took mask off. JESSICA Calhoun updated on situation. 1:1 sitter and med sitter in place. pt on midflow 6L, Sp02 95-96%.
--- NOTE | 2024-02-21 23:25 | RESPNOTE ---
Placed HS BIPAP on this PT at 2030. He has been pretty compliant for the last several days, but not tonight. He ripped it off twice and was put on a total of 3 times over an hour, ripping one mask to the point where a new one had to be obtained
and placed. No more than 10 mins after the 3rd placement, he got extremely agitated and adamantly refused to comply with the therapy, at which time, he was placed back on his midflow cannula and machine was placed on STBY.
--- NOTE | 2024-02-21 23:44 | PTCARENOTE ---
Patient's daughter, Lalitha Horvath, stopped by to visit pt. Daughter was able to help calm pt down. JESSICA Calhoun recommended to give IV ativan, although ativan has not worked in the past. Will give ativan and then attempt to place bipap once again.
[2024-02-21] MEDS: ATIVAN 1 MG IV (23:59)
[2024-02-21] MEDS: NSS (PRESERVATIVE FREE) 0.5 ML IV (23:59)
[2024-02-22] VITALS (26 sets, daily range): BP systolic 87–147; BP diastolic 23–123; PULSE 2–98; BMI 35.7
[2024-02-22] MEDS: ANCEF 10 IV ×2 (01:07→11:42)
[2024-02-22] MEDS: BACTROBAN 2% OINTMENT 1 APPLIC NASAL (04:47)
--- NOTE | 2024-02-22 04:50 | PTCARENOTE ---
Addendum entered by Marce Campa RN 02/22/24 05:24:
BPs not reading accurately d/t patient movement and restlessness.
Original Note:
Patient able to tolerate bipap for a few hours after ativan administration. approx 12a-4a. pt became restless and pulling off mitts and yelling 'cut it off'. bilateral mitts removed and pt calmed down on his own. CHG done. bipap remains on at this
time. sitter at bedside.
[2024-02-22 04:54] LABS: Hematocrit 27.4 % (39.0-52.0); Hemoglobin 8.6 g/dL (13.0-18.0); Mean Corp Hgb Conc. 31.4 g/dL (33.0-37.0); Mean Corpuscular Hgb 25.6 pg (27.0-31.0); Mean Corpuscular Volume 81.5 fL (80.0-94.0); Mean Platelet Volume 10.1 fL (7.4-10.4); Platelet Count 301 10^3/uL (130-400); Red Blood Cell Count 3.36 10^6/uL (4.70-6.10); Red Cell Dist. Width 21.5 % (11.5-14.5)
[2024-02-22 05:03] LABS: APTT 36.7 Sec (23.4-35.0)
[2024-02-22 05:21] LABS: Blood Urea Nitrogen 23 mg/dl (9-20); Calcium 9.1 mg/dl (8.4-10.2); Carbon Dioxide 30 mmol/L (22-30); Chloride 93 mmol/L (98-107); Estimated Creatinine Clearance 59 ml/min; Glucose 203 mg/dl (70-99); Potassium 4.6 mmol/L (3.5-5.1); Sodium 130 mmol/L (135-145); eGFR > 60.00
--- NOTE | 2024-02-22 05:24 | PTCARENOTE ---
Addendum entered by Marce Campa RN 02/22/24 05:34:
pt pulled off bipap. on 6l midflow. sitter at bedside. unable to understand how to use the oral rinse at this time. restless, kicking legs off side of bed. re-oriented to situation, place and time.
Original Note:
Updated Qi (daughter) via phone.
--- NOTE | 2024-02-22 06:33 | PTCARENOTE ---
Report given to Jami ASSISTANT TO THE CEO.
[2024-02-22 06:50] LABS: Glucose - Point of Care 205 mg/dl (70-99)
--- NOTE | 2024-02-22 07:23 | W.PN.HOSP.TC ---
Addendum entered and electronically signed by Sammy Alfred MD 02/22/24 21:57:
Attending Addendum-
I saw and evaluated the patient. I reviewed the resident�s note and agree with findings and plan as documented in the resident�s note. Sub: seen post OR. Appears groggy and not making sense. Seen with daughter. 'you talk to him hes not making sense.
Im tagging out' apparently had a rough night with insomnia Risperdal and ativan given with no effect. Denies pain in LLE. Full 12 point ROS attempted but unable to do so due to confusion. Exam: Vitals reviewed in chart NAD heart GEN-NAD heart
irreg irreg lungs crackles at bases abd soft LE trace edema LL BKA bandaged, ian in place
#Acute on chronic hypoxemic respiratory failure requiring intubation
- 2L nocturnal at home
- acute on chronic HFrEF with known EF of 35%, NYHA class III-IV, underlying COPD ERICK/OHS. h/o tob abuse
- extubated 02/04
- cont BIPAP HS
- transitioned to to PO lasix
- Januvia spironolactone and lisinopril on hold
- currently on 6 midflow, wean for sats 88-92%
# Severe sepsis secondary to LLE Heel osteomyelitis and gangrene
-DC Ancef/Flagyl
-hold heparin gtt
-Lt BKA on 02/21 Dr. Castillo
-cont ian post op dc in am
-start PT OT
# Hyponatremia
- mild
- repeat BMP in am
# Acute Delirium / TME
- intermittent confusion
- likely from infection
-
- cont risperdal and ativan prn
- cont melatonin
- appreciate psych input
# Permanent atrial fibrillation
- cont metoprolol
- hold hep gtt
- hold eliquis
# RAUL on CKD3b
- baseline @ 1.3
- resolved
- monitor BMP
- transitioned to PO lasix
# DM2: a1c 6.4%,
- cont SSI/accuchecks
- better controlled
- 1/2 dose lantus while NPO
- cont L20/N6 after OR
# PVD- s/p SFA stent
# GERD- cont famotidine
DNR
Time spent coordinating care, review of plan of care with resident, personally reviewed records in EMR, med rec, consults, notes, labs, radiology, d/w nursing, daughter � 58 mins
Original Note:
Today's Communication/Plan
-
.
Assessment / Plan
Assessment / Plan
Mr. Shar Wiggins is a 73yo pmh HFrEF (EF 30-35%), CKD stage 3b, IDDM, PAD, permanent afib, pulm htn, COPD admitted for an infected L foot plantar ulcer.
Acute on chronic HFrEF
- echo 09/26: EF 30-35%
- likely secondary to sepsis in setting of pre-existing CAD and CHF
- cardiology following
- trend daily weights, I's&O's, renal function
Sepsis secondary to osteomyelitis
- sepsis resolved, still treating osteomyelitis
- L heel bone bx - MSSA
- Cefazolin day 18 and metronidazole day 16
- ID following
- BKA tentatively scheduled for 02/20
- RCRI 3
- pt medically optimized for procedure
COPD
Ventilator dependent respiratory failure
Acute on chronic hypoxic respiratory failure
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
- extubated on 02/05/24
- received diamox x3 days
- on BiPAP
- incentive spirometry
- wean O2 as possible to SpO2 88-92%
Permanent A-fib
- metoprolol
Type 2 diabetes mellitus
- HbA1c at 6.4.
- basal insulin cut in half for prior to surgery, q6h SSI
[place]Hospital acquired delirium/agitation
- Delirium precautions
- Reorientation
- psych consulted - risperidone, melatonin, ativan
Anemia
- Hb stable
- no active bleeds
- monitor
Diet: NPO after midnight
DVT prophylaxis: held for surgery
CODE STATUS: DNR
Anticipated Discharge: 24 - 48 hours
Subjective/Interval History
-
Date of Service: February 22, 2024
Mr. Shar Wiggins is a 73yo pmh HFrEF (EF 30-35%), CKD stage 3b, IDDM, PAD, permanent afib, pulm htn, COPD admitted for an infected L foot plantar ulcer. Became agitated overnight. Given melatonin and risperdol. Pt still agitated so given ativan
and was calm for several hours. Pt has no concerns himself. Surgery scheduled for 7:30 today.
Objective Data
-
Labs:
Laboratory Results
02/22/24 02/22/24
01:30 04:33
WBC 8.0
Hgb 8.6 L
Hct 27.4 L
Plt Count 301
APTT Cancelled 36.7 H
Sodium 130 L
Potassium 4.6
Chloride 93 L
Carbon Dioxide 30
BUN 23 H
Creatinine 1.2
Glucose 203 H
Calcium 9.1
Vital Signs:
Vital Signs
Temp Pulse Resp BP Pulse Ox
98.4 F 84 16 121/77 88
02/22/24 03:57 02/22/24 06:00 02/22/24 04:00 02/22/24 06:00 02/22/24 06:00
I&O
02/21/24 02/22/24 02/23/24
06:59 06:59 06:59
Intake Total 1580 / 1580 1040 / 1040
Output Total 1600 / 1600 850 / 850
Balance -20 / -20 190 / 190
Review of Systems
-
History Source: Patient
Constitutional: Reports No Symptoms
EENT: Reports No Symptoms Reported
Respiratory: Reports No Symptoms
Cardiac: Reports No Symptoms
Abdomen/GI: Reports No Symptoms
Genitourinary: Reports No Symptoms
Musculoskeletal: Reports No Symptoms
Skin: Reports No Symptoms
Neuro: Reports No Symptoms
Endocrine: Reports No Symptoms
Hematologic / Lymphatic: Reports No Symptoms
Allergy / Immunology: Reports No Symptoms
Physical Exam
-
General: Well Developed and Well Nourished
HEENT: Normocephalic, Atraumatic, Moist Mucous Membranes and Oxygen (6L O2 midflow)
Respiratory: Clear to Auscultation and Non Labored Respirations
Cardiac: S1/S2 and Irregular Rhythm; Negative Murmur, Rub or Gallop
GI: Soft, Nontender, Nondistended and Normal Bowel Sounds
Musculoskeletal: No Clubbing, No Cyanosis, No Edema and Other (diminished L pedal pulse)
Skin: Warm and Dry
Neuro: Awake
Psych: Calm
[2024-02-22] MEDS: NOVOLOG FLEXPEN-LOW RESISTANCE SC (07:30)
--- NOTE | 2024-02-22 07:30 | PTCARENOTE ---
NPO since MN, remains on 6L MF O2. Attends dry. Report given by previous shift. To OR via monitored bed with OR staff.
--- NOTE | 2024-02-22 07:48 | PN.DE.MGMTRT ---
Insulin Management
- -
02/22/2024: Diabetes management Follow up:
73 years old male with multiple comorbidities admitted to the hospital on 01/27 with sepsis due to left foot plantar infected ulcer 2/2 diabetic foot ulcer and peripheral vascular disease S/P left heal debridement. Diabetes consult requested on 02/04
for Hyperglycemia.
PMH: HTN, HLD, CAD, PVD, CHF, COPD and T2DM. Was taking Jardiance 10mg daily, Tresiba 45 units daily, metformin 1000mg BID and NovoLog 7-20 units AC. A1C 6.4%.
Per Vascular surgeon, OR tissue cultures of bone-->Staph aureus (confirming osteomyelitis)
02/20 NPO for OR glucose this AM 137. Resident has ordered 10 units lantus this AM, nurse clarified order, given.
02/21 OR was postponed until this AM. Diet was resumed AC novolog not resumed, glucose range 216 to 241. Patient received no lantus @ hs, fasting glucose this AM 205. Patient for OR this AM not in room at the time of my visit.
Will follow after OR.
Discussed with patients nurse.
Diabetes History
- -
Type of Diabetes: 2 requiring insulin
Pre-Admission Diabetes Regimen
02/22/24
04:33
Creatinine 1.2
Lab Results
Hemoglobin A1c 6.4 % (4.0-5.6) H 01/29/24 07:22
Insulin Pump Settings
IP Diabetes Regimen
02/21/24 02/21/24 02/21/24
11:45 15:32 21:13
Glucose
POC Glucose 141 H 241 H 216 H
02/22/24 02/22/24
04:33 06:37
Glucose 203 H
POC Glucose 205 H
Meal type: Dinner
Meal type: Lunch
Amount consumed: 100%
Amount consumed: 100%
Patient Education
[2024-02-22] MEDS: LOW STRENGTH ASPIRIN TUBE (08:00)
[2024-02-22] MEDS: TOPROL XL PO (08:00)
[2024-02-22] MEDS: LANTUS SC (08:00)
[2024-02-22] MEDS: DESENEX/MITRAZOL/ZEASORB TOPICAL (08:00)
[2024-02-22] MEDS: LASIX PO (08:00)
[2024-02-22] MEDS: FLAGYL PO (08:00)
[2024-02-22] MEDS: ANCEF IV (10:00)
--- NOTE | 2024-02-22 10:30 | OR.RPT ---
Operative Report
Operative Report
PROCEDURE DATE: 12/23/2023
Preoperative diagnosis: Gangrene left heel
Postoperative diagnosis: Same
Procedure: Left below the knee amputation
Surgeon: Jonathan
Cemetery Counselor: RODO Santiago, required for all aspects of procedure including assistance with traction/countertraction, assistance with closure.
Complications: None
Anesthesia: General/LMA, nerve block.
Indications for procedure:
Left heel gangrene extensive. Nonviable/salvageable foot. Risk/benefits/alternatives of left below the knee amputation all fully discussed. Patient and family understood all wished to proceed.
Description of procedure:
Patient was identified brought to the operating room placed on the table in supine position. After the adequate administration of anesthesia and perioperative antibiotics (note patient had been on continuous antibiotics and therefore separate
preoperative dose was not administered), he was prepped and draped in the standard surgical fashion. A standard preoperative timeout was undertaken and everybody was in agreement the plan. Standard posterior flap type incisions were made in the
left lower extremity with a transverse incision anteriorly at approximately 10 to 12 cm distal to the tibial tuberosity. Medial and lateral longitudinal incisions were carried down. And then posterior transverse incision was then again carried
down. The skin on the posterior aspect of the calf more distally was somewhat dry/desiccated with some skin changes and therefore I avoided that area. The incisions were carried through the skin subcutaneous tissue with the electrocautery and then
through the fascial layer. Hemostasis was achieved as we progressed. Next the muscles of the anterior and lateral compartments of the calf were divided with electrocautery. The anterior tibial neurovascular bundle was ligated between silk ties
and then divided (sequentially the artery and vein were ligated and divided). The muscles/attachments of the tibia medially were also divided with electrocautery. As such the tibia was then freed of all its attachments and a periosteal elevator
was used to elevate the periosteum circumferentially. The fibula was similarly freed of all its surrounding soft tissue and muscles. These were transected with electrocautery. The intermuscular septum was then divided with electrocautery.
Circumferential dissection of the fibula was undertaken carefully and a periosteal elevator was used to elevate the periosteum circumferentially around the fibula as well. At this point the tibia and fibula were transected with an oscillating saw.
The posterior tissues were then cut with a amputation knife and a direction parallel to the access of the leg. This was then teed off in a perpendicular access at the distal posterior transverse skin incision site. The leg specimen was then
removed. The peroneal and posterior tibial arteries were then controlled with hemostats. These were then ligated. (Ligated distally and the transection site). Next I removed any redundant muscle with the electrocautery. Next hemostasis was
achieved throughout the muscle bed with [id number] 2-0 and 3-0 silk suture. Next the oscillating saw was used to bevel the anterior aspect of the tibia so as to avoid any pressure point. A rasp was used to smooth the edges. The fibula was
then re- transected with the oscillating saw to a point approximately 1 cm proximal to the tibial transection. Next we irrigated copiously. Hemostasis was confirmed. We then closed in layers after trimming the skin flap of any redundant/dogear
type projections. 0 Vicryl interrupted suture was used to reapproximate the fascial layer. Next running 3-0 Vicryl deep dermal suture layer was run. Finally skin clips were applied. Bulky dressings were applied. The patient tolerated procedure
well.
[2024-02-22 10:32] LABS: Glucose - Point of Care 232 mg/dl (70-99)
--- NOTE | 2024-02-22 10:42 | W.SUR.POST ---
Surgical Immediate Post Op
Note
Pre Op Diagnosis: Nonhealing left heel wound
Post Op Diagnosis: Nonhealing left heel wound
Procedure Performed: Left below the knee amputation
Primary Surgeon: Cash Castillo MD
fitness assistant: ROSA Sigala
Anesthesia: LMA with nerve block
Estimated Blood Loss: 75 mL
Fluids: See anesthesia flowsheet
Drains/Shunts: N/A
Specimens/Cultures: Left foot to pathology
Doppler/Duplex/Angio (Y/N): No
Complications: None
Operative Findings: Successful amputation
--- NOTE | 2024-02-22 11:01 | W.PN.ID1 ---
Date of Service
Date of Service: February 22, 2024
Today's Communication
- s/p uncomplicated BKA of the LLE
- final dose of cefazolin this AM, stopped metronidazole
- will follow clinically for another day
Assessment / Plan
Osteomyelitis of the L heel
Left heel ulcer with wet gangrene s/p debridement to bone
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
RAUL on CKD
Class II obesity
- s/p uncomplicated BKA of the LLE
- final dose of cefazolin this AM, stopped metronidazole
- will follow clinically for another day
����������������������������������������������������������
Chief Complaint
-: Other (calcaneal osteomyelitis, L foot)
Subjective / Review of Systems
afebrile
bp stable
tolerating current therapies
s/p uncomplicated bka
Vital Signs / Physical Exam
Vital Signs
Vital Signs
Temp Pulse Resp BP Pulse Ox
99.7 F 84 16 121/77 88
02/22/24 07:43 02/22/24 06:00 02/22/24 04:00 02/22/24 06:00 02/22/24 06:00
Physical Exam
Constitutional: No Acute Distress
Cardiovascular: Regular Rate and S1/S2; Negative Murmur or Rub
Pulmonary: Clear and Symmetric; Negative Wheezes or Rales
Gastrointestinal: Soft, Non Tender, Non Distended and Normal Bowel Sounds
Skin: Warm and Dry; Negative Rash or Jaundice
Wound: Other (dressing take down deferred)
Objective Data
Lab Data
Lab Results
02/22/24 04:33
ESR 95 mm/hour (0-20) H 01/28/24 07:14
PT 17.3 Sec (11.4-14.6) H 02/21/24 03:41
INR 1.39 02/21/24 03:41
APTT 36.7 Sec (23.4-35.0) H 02/22/24 04:33
Estimated Creat Clear 59 ml/min 02/22/24 04:33
Lactic Acid 1.1 mmol/L (0.7-2.0) 01/31/24 04:35
Total Bilirubin 0.5 mg/dl (0.2-1.3) 02/07/24 04:41
AST 34 U/L (17-59) 02/07/24 04:41
ALT 15 U/L (0-50) 02/07/24 04:41
Alkaline Phosphatase 160 U/L (38-126) H 02/07/24 04:41
C-Reactive Protein > 270.00 mg/L (0.0-10.00) H 01/28/24 07:41
Most recent labs reviewed.
Micro Results:
02/06/24 10:25 C. difficile GDH Antigen & Toxins - Final
Feces/Stool Negative for toxigenic C.difficile
- Final
Negative for Norovirus GI and GII.
01/31/24 12:12 Blood Culture - Final
Blood/Venous No Growth - Final Report
01/31/24 11:15 Blood Culture - Final
Blood/Venous No Growth - Final Report
01/28/24 12:25 Blood Culture - Final
Blood/Venous No Growth - Final Report
01/29/24 15:30 Tissue Culture - Final
Foot - Left S aureus-Methicillin Sensitive
Gram Stain - Final
01/28/24 14:04 MRSA Screen - Final
Nose No Methicillin Resistant Staphylococcus aureus isolated.
[2024-02-22 11:02] LABS: Hematocrit 27.9 % (39.0-52.0); Hemoglobin 8.3 g/dL (13.0-18.0); Mean Corp Hgb Conc. 29.7 g/dL (33.0-37.0); Mean Corpuscular Hgb 25.9 pg (27.0-31.0); Mean Corpuscular Volume 87.2 fL (80.0-94.0); Mean Platelet Volume 10.3 fL (7.4-10.4); Platelet Count 283 10^3/uL (130-400); Red Cell Dist. Width 21.8 % (11.5-14.5); White Blood Cell Count 8.3 10^3/uL (4.8-10.8)
[2024-02-22] MEDS: NOVOLOG vial 2 UNITS SC (11:09)
[2024-02-22] MEDS: PERIDEX 0.12% ORAL RINSE 15 ML PO (11:39)
[2024-02-22] MEDS: RISPERDAL M-TAB (ORALLY DISINTEGRATING) 0.5 MG PO ×2 (12:10→20:57)
[2024-02-22 12:17] LABS: Glucose - Point of Care 228 mg/dl (70-99)
[2024-02-22] MEDS: MORPHINE SULFATE 2 MG IV ×2 (12:45→18:56)
[2024-02-22] MEDS: NOVOLOG FLEXPEN-LOW RESISTANCE 2 UNITS SC (12:54)
--- NOTE | 2024-02-22 12:56 | PN.CDI ---
CDI
- -
CDI:
Physician Documentation Request
Admit Date: 01/28/24 10:56
Dear Doctor Soledad,
Clinical Indicators:
Patient admitted with sepsis.
02/19 [facility] skin/wound assessment: Coccyx Stage 3 Pressure Injury
Treatment: Alginate silver/AG, hydrocolloid dressing
Physician documentation of the type and location of wounds is required for compliant documentation. Based on the above clinical findings and your assessment, please provide the following in your progress note:
1. Location of the ulcer/wound, including laterality.
2. Type (etiology) of ulcer/wound:
- Pressure (decubitus) ulcer
- Other
3. If a pressure ulcer, please also include the stage* of the ulcer:
- Stage 1 - Skin intact, non-blanchable redness
- Stage 2 - Partial thickness loss of dermis, includes intact or open blister
- Stage 3 - Full thickness tissue not including bone, tendon or muscle
- Stage 4 - Full thickness tissue loss, including exposed bone, tendon or muscle
- Unstageable - Full thickness loss in which the base of the ulcer is covered by slough (yellow, plaza, lópez, green or brown) and/or eschar (plaza, brown or black) in the wound bed.
- Unable to determine
Use of terms such as suspected, likely, concern for, or probable (associated with a specific diagnosis that is being evaluated, monitored, or treated as if it exists) are acceptable and can be coded in the inpatient setting, when documented at the
time of discharge.
Thank you,
Shireen Espinal RN BSN
CDI Specialist
available via tiger text
Please use your independent medical judgment in providing your response.
*Source: National Pressure Ulcer Advisory Panel (NPUAP)
--- NOTE | 2024-02-22 13:00 | W.PN.CD ---
Today's Communication / Plan
-
S/P LBKA.
Maintain beta misha.
We will re-assess GDMT/diuretics post op (patient was euvolemic at the time of catheterization).
Hold anticoagulation at this time - restart at vascular surgery's discretion.
Impression / Plan
-
Impression/Plan: 73 y/o male (known to Dr. Alvarez, his primary Modeling And Simulation Analyst) with HTN, HLD, IDDM, COPD, permanent atrial fibrillation (on apixaban), CAD with ICMO, PAD with prior [facility] endovascular intervention and obesity admitted with
non-healing left foot ulcer/wet gangrene complicated by sepsis, s/p left heal debridement which was complicated by VDRF and hypotension requiring pressor support, recovered, now s/p LBKA.
#HFrEF
-Acute on chronic.
-LVEF 35%.
-U/S 02/13/2024 did not favor thoracentesis (small-moderate bilateral effusions).
-Furosemide 40 IV BID given this admit and then held. Patient given acetazolamide for 3 days.
-Close monitoring of labs, tele, weight.
-Dry weight has not truly been established - will need to be reassessed in the absence of his LLE.
-Continue GDMT with metoprolol.
-Post op, reassess to add back lisinopril, SGLT2i, spironolactone.
#Significant, complex lung disease
-Significant CO2 retention.
-Pulmonology consulted and following.
#Left heal wet gangrene/septic shock/osteomyelitis
-Acute on chronic.
-Recovered from sepsis/shock.
-Now s/p LBKA via vascular surgery.
-ABX management per ID. Input appreciated.
-Goal MAP > 65 mmHg.
#Ischemic cardiomyopathy
-Chronic.
-LVEF = 35%.
-GDMT: will hold GDMT other than Toprol XL pre-operative pending vascular surgery and reintroduce post-operatively as above.
#Nonsustained VT
-Resolved.
#Permanent Atrial fibrillation
-Chronic.
-Rate control: metoprolol succinate.
-CHADS2-Vasc = 4 (CHF, Age x2, Vascular Disease).
-Heparin on hold for the next 24 hours. Restart therapeutic anticoagulation at vascular surgery's discretion.
#Coronary artery disease
-Chronic, old [place] with LAD SHIFT SUPERVISOR RN.
-Continue ASA/statin.
Subjective/Interval History:
LBKA this morning.
One dose of furosemide yesterday.
Na down to 130.
ABG = 7.49/59/80 (metabolic alkylosis with chronic respiratory acidosis).
He feels well.
DATA:
Echo, 02/05/2024:
CONCLUSIONS
Moderately reduced left ventricular systolic function.
Left ventricular ejection fraction is 35% by visual estimate.
Severe hypokinesis of the mid to distal anterior, anteroseptal and apical dahl
c/w a mid LAD infarct.
Severe left atrial enlargement.
No significant valvular disease.
No significant change since the prior study of 09/11/2023.
Cath, 09/13/2023:
1. Right dominant circulation with a 50% lesion in the distal third of the RPDA, a diffusely diseased, small first obtuse marginal, a 30% lesion in the mid ramus, a 40% lesion in the origin of the first diagonal and a chronic total occlusion of the
mid LAD (known since cardiac catheterization in 1999).
2. Normal filling pressures (LVEDP = 10 mmHg, PCWP = 13 mmHg at 105.7 kg).
3. Severely impaired cardiac function (cardiac index = 1.36 L/min/m�, a VO2 difference 8.63 volume percent).
4. Mild precapillary pulmonary hypertension (mean PA pressure = 23 mmHg, PVR = 3.44 Moser units).
5. Significantly elevated peripheral vascular resistance (1787 dynes*seconds*cm^5).
Physical Exam
Vital Signs/Labs
Vital Signs
Temp Pulse Resp BP Pulse Ox
36.8 C 101 22 110/71 87
02/22/24 11:53 02/22/24 11:02 02/22/24 11:02 02/22/24 11:02 02/22/24 11:02
02/21/24 02/22/24 02/23/24
11:59 11:59 11:59
Actual Weight 100.4 kg
02/22/24 10:48
02/22/24 04:33
PT 17.3 Sec (11.4-14.6) H 02/21/24 03:41
INR 1.39 02/21/24 03:41
APTT 36.7 Sec (23.4-35.0) H 02/22/24 04:33
Magnesium 1.8 mg/dl (1.6-2.3) 02/13/24 03:09
Triglycerides 150 mg/dl (10-149) H 02/05/24 03:31
01/31/24 02/07/24 02/11/24
09:09 04:41 03:56
Gqp-O-Oavrjhkqycd Pept 27422 6410 7400
02/20/24
05:24
Bwy-G-Bvjgufpexix Pept 3940
Physical Exam
Constitutional: No acute distress and Comfortable
EENT: Anicteric and Moist mucous membranes
Cardiovascular: Pedal edema is absent, JVD pressure is normal, Rhythm/rate is irregular, S1S2 is normal and Murmur/rub/gallop absent
Respiratory: Respiratory effort normal and Other (Decreased throughout.)
GI: Soft, Distention absent, Flat, Non tender and Normal bowel sounds
Neuro/Psych: AO x 3
Other: Other (Left leg is surgically absent below the knee.)
Data Reviewed
-
Date of Service: February 22, 2024
Medical Decision Making: Reviewed Test Results, Independent Historian Assessment, Test Interpretation and Review of Case with other Provider
EKG: Tracing Personally Visualized and interpreted and Report Reviewed by me
X-Ray/CT/US/MRI/NUC/PET: Image Personally Visualized and interpreted and Report Reviewed by me
Medical Tests (PFT, Pathology etc): Image Personally Visualized and interpreted and Report Reviewed by me
Labs: Labs Reviewed by me
Old Records: Reviewed
--- NOTE | 2024-02-22 13:11 | PTCARENOTE ---
REturned from PACU approx 1130, IMU monitors intact- AF 67, BP ranging 87-100s/ 50s. POx waxes and wanes 85%-90 titrating as needed. AAO answers some questions otherwise he is confused, restless, agitated. PRN Risperdal SL given. Wants to get out
of bed and out of here, removing all equipment (monitors, sosa, oxygen etc..) daughter at bedside- understanding of situation but unable to be enough help hes constantly pulling at stuff. Mitts make him more agitated- requested 1:1. NV PS noted 7
- Morphine 2mg PRN given.
PO diet ordered- accucheck noted and covered with SSI.
--- NOTE | 2024-02-22 14:07 | PTCARENOTE ---
NVPS now 1 after meds. 1:[address] with adequate urine output. Dressing to KA CDI. Sitting up eating lunch.
--- NOTE | 2024-02-22 15:53 | W.PN.UPDATE ---
Update Note
Progress Note Update
patient seen chart reviewed. spoke with nursing mr chau's daughter was with him. he was in reasonably good spirits eating his lunch w gusto...so much so that i asked him to take smaller bites and make sure he chews well to avoid aspiration.
he had some issues during the night with pulling at tubes and while he did respond to both risperdal and ativan, nursing felt it prudent to have him on one to one. no changes were made in his medication. he appears comfortable and when seen by this
pattern chart writer was pleasant upon approach.
[2024-02-22 17:18] LABS: Glucose - Point of Care 293 mg/dl (70-99)
[2024-02-22] MEDS: LIPITOR 80 MG PO (17:36)
[2024-02-22] MEDS: NOVOLOG FLEXPEN-LOW RESISTANCE 3 UNITS SC (17:36)
[2024-02-22] MEDS: NOVOLOG FLEXPEN 6 UNITS SC (17:37)
--- NOTE | 2024-02-22 19:16 | PTCARENOTE ---
post Morphine NVPS 1 slept alittle- woke up and was fed dinner by PCT. Currently very agitated again NVPS 8 IV Morphine given. 1:[address]
[2024-02-22] MEDS: MELATONIN 5 MG PO (20:48)
[2024-02-22] MEDS: DESENEX/MITRAZOL/ZEASORB 1 APPLIC TOPICAL (20:48)
[2024-02-22] MEDS: TOPROL XL 50 MG PO (20:48)
[2024-02-22] MEDS: PEPCID PO (20:57)
[2024-02-22] MEDS: ATIVAN 1 MG IV (21:04)
[2024-02-22] MEDS: LANTUS 0.2 UNITS SC (21:14)
[2024-02-22 21:22] LABS: Glucose - Point of Care 429 mg/dl (70-99)
--- NOTE | 2024-02-22 22:10 | PTCARENOTE ---
Addendum entered by Marce Campa RN 02/22/24 22:18:
HS blood glucose reading HIGH, immediate recheck was 388, 20u Lantus given. JESSICA Nash made aware of situation. Opted not to draw venous lab, as patient has settled down at this time and need not to aggravate.
Original Note:
Patient's confusion, restlessness, agitation and delusions continue. 1:1 sitter at bedside holding patient's hands to prevent from removing oxygen, gown, tele monitor, and to protect IV. Bilateral mitts applied. Patient was cleaned for incontinent
BM, linens changed; Sp02 decreased to 60s when turning, NRB placed Sp02 increased to 99%. Afib on tele. HR 140s when agitated, but mostly 90-110s. Patient able to swallow some pills whole with water, but became SOB. Bipap placed by RT. IV Ativan
given to allow patient to rest. Left BKA dressing/alejandro wrap intact. In no apparent distress at this time. Sitter at bedside. Lights dimmed. Rounding frequently for safety.
Lorena(daughter) updated via phone.
[2024-02-23] VITALS (15 sets, daily range): BP systolic 94–149; BP diastolic 53–110; PULSE 2–102; O2SAT 89; BMI 34.9
[2024-02-23] MEDS: MORPHINE SULFATE 2 MG IV ×4 (00:04→20:00)
[2024-02-23] MEDS: ATIVAN 1 MG IV ×2 (03:11→22:45)
[2024-02-23 04:54] LABS: Hematocrit 23.9 % (39.0-52.0); Hemoglobin 7.4 g/dL (13.0-18.0); Mean Corpuscular Hgb 25.8 pg (27.0-31.0); Mean Corpuscular Volume 83.3 fL (80.0-94.0); Mean Platelet Volume 10.9 fL (7.4-10.4); Platelet Count 249 10^3/uL (130-400); Red Blood Cell Count 2.87 10^6/uL (4.70-6.10); Red Cell Dist. Width 21.6 % (11.5-14.5); White Blood Cell Count 10.3 10^3/uL (4.8-10.8)
[2024-02-23 05:05] LABS: INR 1.43
[2024-02-23 05:06] LABS: APTT 35.3 Sec (23.4-35.0)
[2024-02-23 05:22] LABS: Blood Urea Nitrogen 32 mg/dl (9-20); Calcium 8.3 mg/dl (8.4-10.2); Carbon Dioxide 31 mmol/L (22-30); Chloride 95 mmol/L (98-107); Estimated Creatinine Clearance 50 ml/min; Glucose 295 mg/dl (70-99); Potassium 5.2 mmol/L (3.5-5.1); Sodium 130 mmol/L (135-145); eGFR 52.41
--- NOTE | 2024-02-23 07:05 | W.PN.CD ---
Today's Communication / Plan
-
Lokelma.
FENa.
U/A.
Repeat BMP around noon.
Impression / Plan
-
Impression/Plan: 73 y/o male (known to Dr. Alvarez, his primary Historic Interpreter) with HTN, HLD, IDDM, COPD, permanent atrial fibrillation (on apixaban), CAD with ICMO, PAD with prior FA endovascular intervention and obesity admitted with
non-healing left foot ulcer/wet gangrene complicated by sepsis, s/p left heal debridement which was complicated by VDRF and hypotension requiring pressor support, recovered, now s/p LBKA.
#HFrEF
-Acute on chronic.
-LVEF 35%.
-Furosemide 40 IV BID given this admit and then held. Patient given acetazolamide for 3 days.
-Dry weight has not truly been established - will need to be reassessed in the absence of his LLE.
-Continue GDMT with metoprolol.
-SGLT2i/ACEi/ARB/ARNi/MRA on hold for RAUL.
#FEN/Renal
-Acute kidney injury with hyponatremia and hyperkalemia.
-Check FENa, U/A.
-Given likely volume given during surgery, I am suspicious that this is decompensating cardiorenal syndrome.
-Lokelma.
-Repeat BMP around noon.
#Significant, complex lung disease
-Chronic.
-This is the primary bobtail driver of his hypoxia as he has been shown to be relatively euvolemic.
-Significant CO2 retention.
-Pulmonology consulted and following.
#Left heal wet gangrene/septic shock/osteomyelitis
-Acute on chronic.
-Recovered from sepsis/shock.
-Now s/p LBKA via vascular surgery.
-ABX management per ID. Input appreciated.
-Goal MAP > 65 mmHg.
#Ischemic cardiomyopathy
-Chronic.
-LVEF = 35%.
-GDMT: will hold GDMT other than Toprol XL pre-operative pending vascular surgery and reintroduce post-operatively as above.
#Permanent Atrial fibrillation
-Chronic.
-Rate control: metoprolol succinate.
-CHADS2-Vasc = 4 (CHF, Age x2, Vascular Disease).
-Heparin on hold for the next 24 hours. Restart therapeutic anticoagulation at vascular surgery's discretion.
#Coronary artery disease
-Chronic, old CA with LAD SALES REPRESENTATIVE EDUCATION COURSES.
-Continue ASA/statin.
Subjective/Interval History:
Weight 100.4 kg --> 98.1 kg (amputation).
Still delerious overnight. HR rises with anxiety, falls when he sleeps.
Requiring BiPAP overnight.
Hbg down to 7.4 from 8.3.
Na remains 130, Cr up to 1.4 and K is now 5.2.
Unlcear I/O given surgery yesterday.
DATA:
Echo, 02/05/2024:
CONCLUSIONS
Moderately reduced left ventricular systolic function.
Left ventricular ejection fraction is 35% by visual estimate.
Severe hypokinesis of the mid to distal anterior, anteroseptal and apical dahl
c/w a mid LAD infarct.
Severe left atrial enlargement.
No significant valvular disease.
No significant change since the prior study of 09/11/2023.
Cath, 09/13/2023:
1. Right dominant circulation with a 50% lesion in the distal third of the RPDA, a diffusely diseased, small first obtuse marginal, a 30% lesion in the mid ramus, a 40% lesion in the origin of the first diagonal and a chronic total occlusion of the
mid LAD (known since cardiac catheterization in 1999).
2. Normal filling pressures (LVEDP = 10 mmHg, PCWP = 13 mmHg at 105.7 kg).
3. Severely impaired cardiac function (cardiac index = 1.36 L/min/m�, a VO2 difference 8.63 volume percent).
4. Mild precapillary pulmonary hypertension (mean PA pressure = 23 mmHg, PVR = 3.44 Moser units).
5. Significantly elevated peripheral vascular resistance (1787 dynes*seconds*cm^5).
Physical Exam
Vital Signs/Labs
Vital Signs
Temp Pulse Resp BP Pulse Ox
36.1 C 65 24 94/70 94
02/23/24 03:00 02/23/24 06:05 02/23/24 06:05 02/23/24 06:06 02/23/24 06:05
02/21/24 02/22/24 02/23/24
11:59 11:59 11:59
Actual Weight 100.4 kg 98.1 kg
02/23/24 04:10
02/23/24 04:10
PT 18.0 Sec (11.4-14.6) H 02/23/24 04:10
INR 1.43 02/23/24 04:10
APTT 35.3 Sec (23.4-35.0) H 02/23/24 04:10
Magnesium 1.8 mg/dl (1.6-2.3) 02/13/24 03:09
Triglycerides 150 mg/dl (10-149) H 02/05/24 03:31
01/31/24 02/07/24 02/11/24
09:09 04:41 03:56
Ixy-T-Npslcsuiywg Pept 56077 6410 7400
02/20/24
05:24
Lzi-C-Ennibwsazvf Pept 3940
Physical Exam
Constitutional: No acute distress and Comfortable
EENT: Anicteric and Moist mucous membranes
Cardiovascular: Rhythm/rate is irregular, S1S2 is normal and Murmur/rub/gallop absent
Respiratory: Respiratory effort normal and Other (Decreased throughout.)
GI: Soft, Distention absent, Flat, Non tender and Normal bowel sounds
Data Reviewed
-
Date of Service: February 23, 2024
Medical Decision Making: Reviewed Test Results, Tests Ordered, Independent Historian Assessment and Test Interpretation
EKG: Tracing Personally Visualized and interpreted and Report Reviewed by me
Echo: Report Reviewed by me
X-Ray/CT/US/MRI/NUC/PET: Image Personally Visualized and interpreted and Report Reviewed by me
Medical Tests (PFT, Pathology etc): Image Personally Visualized and interpreted and Report Reviewed by me
Labs: Labs Reviewed by me
--- NOTE | 2024-02-23 07:39 | PN.DE.MGMTRT ---
Insulin Management
- -
02/23/2024: Diabetes management Follow up:
73 years old male with multiple comorbidities admitted to the hospital on 01/27 with sepsis due to left foot plantar infected ulcer 2/2 diabetic foot ulcer and peripheral vascular disease S/P left heal debridement. Diabetes consult requested on 02/04
for Hyperglycemia.
PMH: HTN, HLD, CAD, PVD, CHF, COPD and T2DM. Was taking Jardiance 10mg daily, Tresiba 45 units daily, metformin 1000mg BID and NovoLog 7-20 units AC. A1C 6.4%.
Per Vascular surgeon, OR tissue cultures of bone-->Staph aureus (confirming osteomyelitis)
02/22 Patient to OR for amputation L lower leg. Received lower doses of insulin with meals. Novolog 6 units AC resumed with dinner and lantus 20 units resumed. Will make no change to regimen today, will follow and assess appetite and glucose.
Discussed with patients nurse.
Diabetes History
- -
Type of Diabetes: 2 requiring insulin
Pre-Admission Diabetes Regimen
02/23/24
04:10
Creatinine 1.4 H
Lab Results
Hemoglobin A1c 6.4 % (4.0-5.6) H 01/29/24 07:22
Insulin Pump Settings
IP Diabetes Regimen
02/22/24 02/22/24 02/22/24
10:30 12:05 17:07
Glucose
POC Glucose 232 H 228 H 293 H
02/22/24 02/23/24
21:10 04:10
Glucose 295 H
POC Glucose 429 H
Meal type: Dinner
Meal type: Breakfast
Amount consumed: 80%
Patient Education
[2024-02-23] MEDS: LOKELMA 5 GRAM PO (07:47)
[2024-02-23] MEDS: TOPROL XL 50 MG PO ×2 (07:47→20:28)
[2024-02-23] MEDS: LOW STRENGTH ASPIRIN 81 MG TUBE (07:47)
[2024-02-23] MEDS: LASIX 40 MG PO (07:47)
--- NOTE | 2024-02-23 07:52 | W.PN.HOSP.TC ---
Addendum entered and electronically signed by Sammy Alfred MD 02/23/24 21:29:
Attending Addendum-
I saw and evaluated the patient. I reviewed the resident�s note and agree with findings and plan as documented in the resident�s note. Sub: had periods of agitations and confustion overnight. HAd increased o2 requirement this am. Denies pain in LLE.
Full 12 point ROS attempted but unable to do so due to confusion. Exam: Vitals reviewed in chart NAD heart GEN-NAD heart irreg irreg lungs crackles at bases abd soft LE trace edema LL BKA bandaged, TIM pfeifferey in place
#Acute on chronic hypoxemic respiratory failure s/p VDRF
- 2L nocturnal at home
- acute on chronic HFrEF with known EF of 35%, NYHA class III-IV, underlying COPD ERICK/OHS. h/o tob abuse
- extubated 02/04
- cont BIPAP qHS
- cont PO lasix
- Januvia spironolactone and lisinopril on hold
- currently on 5L midflow, wean for sats 88-92%
# Severe sepsis secondary to LLE Heel osteomyelitis
-abx dc'd
-Lt BKA on 02/21 Dr. Castillo
-DC sosa TOV today
-start PT OT
# Acute on Chronic anemia
- likely partially dilutional s/p OR
- repeat CBC in am
# Hyponatremia
- mild
- stable
- repeat BMP in am
# Acute Delirium / TME
- intermittent confusion
- with underlying dementia
- change risperdal to standing BID and add prn dosing
- cont melatonin
- appreciate psych input
# Permanent atrial fibrillation
- cont metoprolol
- restart eliquis
# RAUL on CKD3b
- baseline @ 1.3
- resolved
- monitor BMP
- cont PO lasix
# DM2: a1c 6.4%,
- cont SSI/accuchecks
- uncontrolled
- increase lantus to 25 and novolog q ac to 9
# PVD- s/p SFA stent
# GERD- cont famotidine
DNR
Time spent coordinating care, review of plan of care with resident, personally reviewed records in EMR, med rec, consults, notes, labs, radiology, d/w nursing� 59 mins
Original Note:
Today's Communication/Plan
-
.
Assessment / Plan
Assessment / Plan
Mr. Shar Wiggins is a 73yo pmh HFrEF (EF 30-35%), CKD stage 3b, IDDM, PAD, permanent afib, pulm htn, COPD admitted for an infected L foot plantar ulcer.
Acute on chronic HFrEF
- echo 09/26: EF 30-35%
- likely secondary to sepsis in setting of pre-existing CAD and CHF
- cardiology following
- trend daily weights, I's&O's, renal function
Sepsis secondary to osteomyelitis
- sepsis resolved
- L heel bone bx - MSSA
- final dose of cefazolin yesterday per ID
- BKA performed 02/21. Pt tolerated procedure well. Remove sosa
COPD
Acute on chronic hypoxic respiratory failure
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
- extubated on 02/05/24
- received diamox x3 days
- on BiPAP
- incentive spirometry
- wean O2 as possible to SpO2 88-92%
Hyponatremia
- was on 2g sodium diet, change to 4g
- repeat bmp
Permanent A-fib
- metoprolol
- eliquis
Type 2 diabetes mellitus
- HbA1c at 6.4.
- SSI
[place]/[facility] acquired delirium/agitation
- Delirium precautions
- Reorientation
- psych consulted - risperidone, melatonin, ativan
Anemia
- Hb stable
- no active bleeds
- monitor
Coccyx Stage 3 pressure injury
- alginate silver/AG, hydrocolloid dressing
- monitor
Diet: 4g sodium
DVT prophylaxis: eliquis
CODE STATUS: DNR
Anticipated Discharge: > 48 hours
Subjective/Interval History
-
Date of Service: February 23, 2024
Mr. Shar Wiggins is a 73yo pmh HFrEF (EF 30-35%), CKD stage 3b, IDDM, PAD, permanent afib, pulm htn, COPD admitted for an infected L foot plantar ulcer. L BKA performed yesterday. Pt tolerated procedure well. Pt agitated overnight, requiring
risperdol, melatonin, and two doses of ativan. Pt also required risperdol this morning.
Objective Data
-
Labs:
Laboratory Results
02/23/24 02/23/24
04:10 12:00
WBC 10.3
Hgb 7.4 L
Hct 23.9 L
Plt Count 249
PT 18.0 H
INR 1.43
APTT 35.3 H
Sodium 130 L Pending
Potassium 5.2 H Pending
Chloride 95 L Pending
Carbon Dioxide 31 H Pending
BUN 32 H Pending
Creatinine 1.4 H Pending
Glucose 295 H Pending
Calcium 8.3 L Pending
Vital Signs:
Vital Signs
Temp Pulse Resp BP Pulse Ox
97.0 F 65 24 94/70 94
02/23/24 03:00 02/23/24 06:05 02/23/24 06:05 02/23/24 06:06 02/23/24 06:05
I&O
02/22/24 02/23/24 02/24/24
06:59 06:59 06:59
Intake Total 1040 / 1040 770 / 770
Output Total 850 / 850 1400 / 1400
Balance 190 / 190 -630 / -630
Review of Systems
-
Unable to obtain full review of systems at this time due to: Acuity
Physical Exam
-
General: Well Developed and Well Nourished
HEENT: Normocephalic, Atraumatic, Moist Mucous Membranes and Oxygen (6L O2 nasal cannula)
Respiratory: Wheezes
Cardiac: S1/S2 and Irregular Rhythm; Negative Murmur, Rub or Gallop
GI: Soft, Nontender, Nondistended and Normal Bowel Sounds
Genito-urinary: Clear Urine and Sosa
Musculoskeletal: No Clubbing, No Cyanosis and No Edema
Skin: Warm and Dry
Neuro: Awake
Psych: Confused
[2024-02-23] MEDS: RISPERDAL M-TAB (ORALLY DISINTEGRATING) 0.5 MG PO ×2 (07:56→15:58)
[2024-02-23 08:28] LABS: Urine Albumin 1+ (Neg - Trace); Urine Bilirubin Negative (Negative); Urine Character Slightly Cloudy (Clear); Urine Color Yellow; Urine Glucose Negative (Negative); Urine Ketone Negative (Negative); Urine Leukocyte Trace (Negative); Urine Nitrite Negative (Negative); Urine Occult Blood 4+ (Negative); Urine Specific Gravity 1.025 (<1.030); Urine Urobilinogen Negative (Neg - 1+)
--- NOTE | 2024-02-23 08:53 | W.PN.VS ---
Today's Communication / Plan
-
Discussed with Dr. Street
Assessment/Plan
-
POD 1 BKA
Plan:
-Plan to keep dressing intact today, will change dressing tomorrow(POD 2)
-Can resume heparin drip today
Subjective Data
-
Date of Service: February 23, 2024
Patient seen at bedside this a.m. Patient is slightly confused this morning but calm. No events overnight. Stump dressing dry.
Objective Data
-
Vital Signs
Temp Pulse Resp BP Pulse Ox
97.0 F 65 24 94/70 94
02/23/24 03:00 02/23/24 06:05 02/23/24 06:05 02/23/24 06:06 02/23/24 06:05
Intake and Output
02/22/24 02/23/24 02/24/24
06:59 06:59 06:59
Intake Total 1040 / 1040 770 / 770
Output Total 850 / 850 1400 / 1400
Balance 190 / 190 -630 / -630
Intake:
Oral fluids 1040 / 1040 720 / 720
IV fluids (Total) 50 / 50
normal saline 50 / 50
Output:
Urine, Street 1050 / 1050
Urine, Voided 850 / 850 350 / 350
Other:
How many times incontinent 2
MODERATE amount urine
How many times incontinent 1
SATURATED amount urine
Lab Results
02/23/24 04:10
Calcium 8.3 mg/dl (8.4-10.2) L 02/23/24 04:10
Phosphorus 3.7 mg/dl (2.5-4.5) 02/07/24 04:41
Magnesium 1.8 mg/dl (1.6-2.3) 02/13/24 03:09
Total Bilirubin 0.5 mg/dl (0.2-1.3) 02/07/24 04:41
Direct Bilirubin 0.7 mg/dl (0.0-0.4) H 01/31/24 04:35
AST 34 U/L (17-59) 02/07/24 04:41
ALT 15 U/L (0-50) 02/07/24 04:41
Alkaline Phosphatase 160 U/L (38-126) H 02/07/24 04:41
Total Protein 6.6 g/dl (6.3-8.2) 02/07/24 04:41
Albumin 2.7 g/dl (3.5-5.0) L 02/07/24 04:41
Physical Exam
-
Awake and alert
No tachycardia
no tachypnea
Abdomen soft
Stump site dressing clean, dry, intact, no drainage noted
[2024-02-23 09:05] LABS: Urine Sodium 23 mmol/L (30-90)
[2024-02-23 09:15] LABS: Urine Mucus Many
[2024-02-23 09:15] LABS: Glucose - Point of Care 277 mg/dl (70-99)
--- NOTE | 2024-02-23 09:15 | W.PN.ID1 ---
Date of Service
Date of Service: February 23, 2024
Today's Communication
- s/p uncomplicated BKA of the LLE 02/21
- infected tissue has been resected
- completed antibiotics yesterday
ID service will no longer actively follow this patient please recall for further questions
Assessment / Plan
Osteomyelitis of the L heel - resolved; s/p amputation
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
RAUL on CKD
Class II obesity
- s/p uncomplicated BKA of the LLE 02/21
- infected tissue has been resected
- completed antibiotics yesterday
ID service will no longer actively follow this patient please recall for further questions
����������������������������������������������������������
Chief Complaint
-: Other (calcaneal osteomyelitis, L foot)
Subjective / Review of Systems
remains afebrile
bp overall stable
no events overnight
Vital Signs / Physical Exam
Vital Signs
Vital Signs
Temp Pulse Resp BP Pulse Ox
97.0 F 65 24 94/70 94
02/23/24 03:00 02/23/24 06:05 02/23/24 06:05 02/23/24 06:06 02/23/24 06:05
Physical Exam
Constitutional: No Acute Distress
Cardiovascular: Regular Rate and S1/S2; Negative Murmur or Rub
Pulmonary: Clear and Symmetric; Negative Wheezes or Rales
Gastrointestinal: Soft, Non Tender, Non Distended and Normal Bowel Sounds
Extremities: Other (dressing clean, dry, intact)
Skin: Warm and Dry; Negative Rash or Jaundice
Objective Data
Lab Data
Lab Results
02/23/24 04:10
ESR 95 mm/hour (0-20) H 01/28/24 07:14
PT 18.0 Sec (11.4-14.6) H 02/23/24 04:10
INR 1.43 02/23/24 04:10
APTT 35.3 Sec (23.4-35.0) H 02/23/24 04:10
Estimated Creat Clear 50 ml/min 02/23/24 04:10
Lactic Acid 1.1 mmol/L (0.7-2.0) 01/31/24 04:35
Total Bilirubin 0.5 mg/dl (0.2-1.3) 02/07/24 04:41
AST 34 U/L (17-59) 02/07/24 04:41
ALT 15 U/L (0-50) 02/07/24 04:41
Alkaline Phosphatase 160 U/L (38-126) H 02/07/24 04:41
C-Reactive Protein > 270.00 mg/L (0.0-10.00) H 01/28/24 07:41
Most recent labs reviewed.
Micro Results:
02/06/24 10:25 C. difficile GDH Antigen & Toxins - Final
Feces/Stool Negative for toxigenic C.difficile
- Final
Negative for Norovirus GI and GII.
01/31/24 12:12 Blood Culture - Final
Blood/Venous No Growth - Final Report
01/31/24 11:15 Blood Culture - Final
Blood/Venous No Growth - Final Report
01/28/24 12:25 Blood Culture - Final
Blood/Venous No Growth - Final Report
01/29/24 15:30 Tissue Culture - Final
Foot - Left S aureus-Methicillin Sensitive
Gram Stain - Final
01/28/24 14:04 MRSA Screen - Final
Nose No Methicillin Resistant Staphylococcus aureus isolated.
[2024-02-23 09:17] LABS: Urine Squamous Cell 0-2 /LPF (Few)
[2024-02-23 09:19] LABS: Urine Amorphous Seen; Urine Granular Cast >15 /LPF (0); Urine Hyaline Cast >15 /LPF (0-2)
[2024-02-23 09:21] LABS: Urine Red Blood Cell 26-30 /HPF (0-2)
[2024-02-23 09:23] LABS: Urine Bacteria Moderate (Negative)
[2024-02-23] MEDS: NOVOLOG FLEXPEN-LOW RESISTANCE 3 UNITS SC (10:24)
[2024-02-23] MEDS: NOVOLOG FLEXPEN 6 UNITS SC (10:24)
[2024-02-23] MEDS: DESENEX/MITRAZOL/ZEASORB 1 APPLIC TOPICAL ×2 (10:25→20:29)
[2024-02-23] MEDS: LANTUS 0.2 UNITS SC (10:25)
[2024-02-23 12:24] LABS: Glucose - Point of Care 221 mg/dl (70-99)
--- NOTE | 2024-02-23 12:45 | CM ---
Patient who is s/p Left below the knee amputation 02/21. O2 6L. BiPAP. PT/OT Evals pending.
Spoke with Maci, nurse; patient intermittently forgetful with concern for pulling at tubes - has 1:1 sitter.
Met with patient, his sister and brother in law were at the bedside. Patient able to say hello and is aware he is at .
Phone call to Lalitha, ; left message requesting callback for d/c planning.
Messages to Hannah Jorge, Vascular EDUCATION FACULTY MEMBER & Dinorah Rowe, Resident with request to consider Physiatry Consult.
Plan continue to follow patient's mentation, O2 needs, mobility needs.
Plan TBD.
--- NOTE | 2024-02-23 13:35 | PN.DE.MGMTRT ---
Insulin Management
- -
02/23/2024 Diabetes Management Update
Glucose fasting this AM 295, will increase HS lantus to 25 units. Pre lunch glucose 221. Will increase AC novolog to 9 units, first dose with lunch.
Discussed changes with nurse.
Diabetes History
- -
Type of Diabetes: 2 requiring insulin
Pre-Admission Diabetes Regimen
02/23/24
04:10
Creatinine 1.4 H
Lab Results
Hemoglobin A1c 6.4 % (4.0-5.6) H 01/29/24 07:22
Insulin Pump Settings
IP Diabetes Regimen
02/22/24 02/22/24 02/23/24
17:07 21:10 04:10
Glucose 295 H
POC Glucose 293 H 429 H
02/23/24 02/23/24
09:03 12:13
Glucose
POC Glucose 277 H 221 H
Meal type: Breakfast
Meal type: Dinner
Amount consumed: 50%
Amount consumed: 80%
Patient Education
[2024-02-23] MEDS: NOVOLOG FLEXPEN 9 UNITS SC ×2 (13:56→17:53)
[2024-02-23] MEDS: NOVOLOG FLEXPEN-LOW RESISTANCE 2 UNITS SC (13:57)
[2024-02-23 13:58] LABS: Blood Urea Nitrogen 34 mg/dl (9-20); Calcium 8.7 mg/dl (8.4-10.2); Carbon Dioxide 34 mmol/L (22-30); Chloride 93 mmol/L (98-107); Estimated Creatinine Clearance 50 ml/min; Glucose 210 mg/dl (70-99); Potassium 4.8 mmol/L (3.5-5.1); Sodium 133 mmol/L (135-145); eGFR 52.41
--- NOTE | 2024-02-23 14:36 | W.PN.UPDATE ---
Update Note
Progress Note Update
Pt seen at bedside, chart reviewed. Agitated overnight, needing a one to one sitter due to ongoing delirium and intermittent agitation with need for redirection. Did receive risperidone 0.5mg this AM which seems to have helped. Is POD1 s/p BKA and
at risk of worsening delriium & agitation, would benefit from standing risperidone for the time being so as to minimize risk of pt injuring himself when agitated.
Risperidone 0.25mg AM + 0.75mg HS, continue 0.5mg BIDPRN
Psychiatry will reassess tomorrow
--- NOTE | 2024-02-23 15:45 | PTCARENOTE ---
Trapeze not available for this bed type. D/w SPD, PT/OT - pt would be unable to use ( d/t delirium)
[2024-02-23] MEDS: NOVOLOG FLEXPEN SC (15:57)
--- NOTE | 2024-02-23 16:30 | PTCARENOTE ---
Received this am- became agitated and restless, NVPS 8 - Morphine and PRN Risperidol given with good effect- pt rested afterwards. Appetite good eating fair amt on trays- insulin coverage as ordered. Continued with 1:1 supervision. Quick visits
from family today.
He remains Ox3 he can answer some questions appropriately then other times he is delirious- pulling off O2 and wires IVs in reach. He remained with a Street today however just removed per orders. DTV by 2229. This PM he again is agitated, restless
refusing care. NVPS 6 and Morphine and Risperdal given again. Repositioned. Incontinent x2 today of stool- Sacral dressing removed cleansed wound and redressed both times.
[2024-02-23 17:27] LABS: Glucose - Point of Care 169 mg/dl (70-99)
[2024-02-23] MEDS: NOVOLOG FLEXPEN-LOW RESISTANCE 1 UNITS SC (17:54)
[2024-02-23] MEDS: LIPITOR 80 MG PO (17:55)
--- NOTE | 2024-02-23 18:16 | PTCARENOTE ---
weaned to 4L maintaining sao2 93% - attempted 3L failed sao2 85%
[2024-02-23] MEDS: MELATONIN 5 MG PO (20:28)
[2024-02-23] MEDS: ELIQUIS 5 MG PO (20:28)
[2024-02-23] MEDS: RISPERDAL M-TAB (ORALLY DISINTEGRATING) 0.75 MG PO (20:28)
[2024-02-23] MEDS: PEPCID 20 MG PO (20:29)
[2024-02-23 21:36] LABS: Glucose - Point of Care 88 mg/dl (70-99)
[2024-02-23] MEDS: LANTUS SC (22:41)
[2024-02-23] MEDS: NSS (PRESERVATIVE FREE) 0.5 ML IV (22:46)
--- NOTE | 2024-02-23 23:33 | PTCARENOTE ---
Patient able to swallow pills whole with water. Incont of urine in diaper; marita care provided. Turns per the worklist. Patient confused, unable to state place, time or situation. Re-oriented frequently. 1:1 sitter at bedside; pt attempts to remove
equipment including oxygen/bipap, gown, IVs, tele wires. Busy book brought in by family unsuccessful at distraction at this time. BiPap placed by RT, order for bilateral mitts obtained and placed. Morphine provided for pain, when asked where his
pain was patient yelled 'everywhere'. Afib on tele. Pt also received PRN Ativan for restlessness and agitation. Rounding frequently. RN sitting at closest nursing station.
[2024-02-24] VITALS (18 sets, daily range): BP systolic 86–128; BP diastolic 51–89; PULSE 2–107; BMI 35.1
[2024-02-24 06:07] LABS: % Basophils 0.2 % (0-2); % Eosinophils 0.9 % (0-6); % Immature Granulocytes 0.4 % (0-0.5); % Neutrophils 75.5 % (42.2-75.2); Absolute Eosinophils 0.1 10^3/uL (0-0.7); Absolute Immature Granulocytes 0.1 10^3/uL (0-0.05); Absolute Lymphocytes 1.6 10^3/uL (1.2-3.4); Absolute Monocytes 1.3 10^3/uL (0.1-0.6); Absolute Neutrophils 9.5 10^3/uL (1.4-6.5); Hematocrit 25.3 % (39.0-52.0); Hemoglobin 7.8 g/dL (13.0-18.0); Mean Corp Hgb Conc. 30.8 g/dL (33.0-37.0); Mean Corpuscular Hgb 25.7 pg (27.0-31.0); Mean Corpuscular Volume 83.5 fL (80.0-94.0); Mean Platelet Volume 10.5 fL (7.4-10.4); Nucleated Red Blood Cells % 0 % (-); Platelet Count 238 10^3/uL (130-400); Red Blood Cell Count 3.03 10^6/uL (4.70-6.10); Red Cell Dist. Width 21.5 % (11.5-14.5); White Blood Cell Count 12.5 10^3/uL (4.8-10.8)
[2024-02-24 06:24] LABS: Blood Urea Nitrogen 42 mg/dl (9-20); Calcium 8.3 mg/dl (8.4-10.2); Carbon Dioxide 30 mmol/L (22-30); Chloride 97 mmol/L (98-107); Estimated Creatinine Clearance 47 ml/min; Glucose 122 mg/dl (70-99); Potassium 4.8 mmol/L (3.5-5.1); Sodium 133 mmol/L (135-145); eGFR 48.25
--- NOTE | 2024-02-24 08:57 | W.PN.CD ---
Today's Communication / Plan
-
Monitor response to furosemide 40 mg PO this morning.
If weight continues to rise, give furosemide 40 mg IV tomorrow.
He may benefit from treatment of his anemia (known CAD) but we should see if it responds to hemoconcentration first.
Monitor H/H with reintroduction of apixaban.
If he is transfused, give additional furosemide 40 mg IV to avoid TACO.
Impression / Plan
-
Impression/Plan: 73 y/o male (known to Dr. Alvarez, his primary Technician Assistant) with HTN, HLD, IDDM, COPD, permanent atrial fibrillation (on apixaban), CAD with ICMO, PAD with prior [facility] endovascular intervention and obesity admitted with
non-healing left foot ulcer/wet gangrene complicated by sepsis, s/p left heal debridement which was complicated by VDRF and hypotension requiring pressor support, recovered, now s/p LBKA.
#HFrEF
-Acute on chronic.
-LVEF 35%.
-Furosemide 40 IV BID given this admit and then held. Patient given acetazolamide for 3 days.
-Dry weight has not truly been established - will need to be reassessed in the absence of his LLE.
-Continue GDMT with metoprolol.
-SGLT2i/ACEi/ARB/ARNi/MRA on hold for RAUL.
-Examines like HFrEF. Monitor output with PO furosemide this morning. Change furosemide to IV if lackluster diuresis with PO.
-Likely repeat furosemide tomorrow.
#FEN/Renal
-Acute kidney injury with hyponatremia.
-Hyperkalemia resolved.
-FENa = 0.16% - I suspect cardiorenal syndrome and not true intravascular depletion.
-Examines like there is volume overload (JVD on exam). Oxygen requirement is unhelpful given his underlying pulmonary disease.
#Significant, complex lung disease
-Chronic.
-This is the primary flag car driver of his hypoxia as he has been shown to be relatively euvolemic.
-Significant CO2 retention.
-Pulmonology consulted and following.
#Left heal wet gangrene/septic shock/osteomyelitis
-Acute on chronic.
-Recovered from sepsis/shock.
-Now s/p LBKA via vascular surgery.
-ABX completed. ID signed off.
-Goal MAP > 65 mmHg.
#Anemia
-Chronic, downtrending.
-Clearly a component of AoCD.
-Low(er) threshold for transfusion. There may be a component of dilution.
-If the patient is transfused, give additional furosemide 40 mg IV to avoid TACO.
#Ischemic cardiomyopathy
-Chronic.
-LVEF = 35%.
-GDMT: will hold GDMT other than Toprol XL pre-operative pending vascular surgery and reintroduce post-operatively as above.
#Permanent Atrial fibrillation
-Chronic.
-Rate control: metoprolol succinate.
-CHADS2-Vasc = 4 (CHF, Age x2, Vascular Disease).
-Heparin on hold for the next 24 hours. Restart therapeutic anticoagulation at vascular surgery's discretion.
#Coronary artery disease
-Chronic, old OR with LAD ADMINISTRATIVE PROFESSIONAL.
-Continue ASA/statin.
Subjective/Interval History:
Weight up 0.6 kg today (98.1 --> 98.7 kg) against an unclear dry weight.
Low normal BP to mild hypotension (while sleeping).
Alternating between 4-5 LNC, BiPAP when sleeping.
Nursing reports severe delerium, requiring 1:1 sitter ATC.
Apixaban restarted with vascular surgery's blessing.
ID has signed off as infected tissue removed, ABX course completed.
BUN/Cr up to 42/1.5, Na 133. FENa = 0.16%.
Furosemide 40 mg IV given yesterday, 40 mg PO given this morning.
DATA:
Echo, 02/05/2024:
CONCLUSIONS
Moderately reduced left ventricular systolic function.
Left ventricular ejection fraction is 35% by visual estimate.
Severe hypokinesis of the mid to distal anterior, anteroseptal and apical dahl
c/w a mid LAD infarct.
Severe left atrial enlargement.
No significant valvular disease.
No significant change since the prior study of 09/11/2023.
Cath, 09/13/2023:
1. Right dominant circulation with a 50% lesion in the distal third of the RPDA, a diffusely diseased, small first obtuse marginal, a 30% lesion in the mid ramus, a 40% lesion in the origin of the first diagonal and a chronic total occlusion of the
mid LAD (known since cardiac catheterization in 1999).
2. Normal filling pressures (LVEDP = 10 mmHg, PCWP = 13 mmHg at 105.7 kg).
3. Severely impaired cardiac function (cardiac index = 1.36 L/min/m�, a VO2 difference 8.63 volume percent).
4. Mild precapillary pulmonary hypertension (mean PA pressure = 23 mmHg, PVR = 3.44 Moser units).
5. Significantly elevated peripheral vascular resistance (1787 dynes*seconds*cm^5).
Physical Exam
Vital Signs/Labs
Vital Signs
Temp Pulse Resp BP Pulse Ox
36.2 C 90 25 92/65 96
02/24/24 07:55 02/24/24 06:00 02/24/24 06:00 02/24/24 06:00 02/24/24 06:00
02/22/24 02/23/24 02/24/24
11:59 11:59 11:59
Actual Weight 100.4 kg 98.1 kg 98.7 kg
02/24/24 05:41
02/24/24 05:41
PT 18.0 Sec (11.4-14.6) H 02/23/24 04:10
INR 1.43 02/23/24 04:10
APTT 35.3 Sec (23.4-35.0) H 02/23/24 04:10
Magnesium 1.8 mg/dl (1.6-2.3) 02/13/24 03:09
Triglycerides 150 mg/dl (10-149) H 02/05/24 03:31
01/31/24 02/07/24 02/11/24
09:09 04:41 03:56
Sgg-K-Vckveseyjou Pept 28002 6410 7400
02/20/24
05:24
Lmb-M-Ulkqjmnmkjl Pept 3940
Physical Exam
Constitutional: No acute distress
EENT: Anicteric and Moist mucous membranes
Cardiovascular: Rhythm/rate is irregular, JVD present, S1S2 is normal and Murmur/rub/gallop absent
Respiratory: Respiratory effort normal and Other (Decreased throughout.)
GI: Soft, Distention absent, Flat, Non tender and Normal bowel sounds
Neuro/Psych: Other (Stuporous. Arousal to repeated verbal stimuli.)
Data Reviewed
-
Date of Service: February 24, 2024
Medical Decision Making: Reviewed Test Results, Tests Ordered (Urine urea), Test Interpretation and Review of Case with other Provider
EKG: Tracing Personally Visualized and interpreted and Report Reviewed by me
Echo: Report Reviewed by me
X-Ray/CT/US/MRI/NUC/PET: Image Personally Visualized and interpreted and Report Reviewed by me
Medical Tests (PFT, Pathology etc): Image Personally Visualized and interpreted and Report Reviewed by me
Labs: Labs Reviewed by me
Old Records: Reviewed
--- NOTE | 2024-02-24 09:18 | W.PN.PUL3 ---
Today's Communication / Plan
-
BiPAP with sleep and prn during the day
Occasional trending of VBG to ensure pH + pCO2 is stable
Continue supplemental oxygen and wean down as tolerated to maintain SpO2 88-95%
If possible, check ambulatory pulse oximetry prior to discharge; will need to be done with exertion as he is unable to safely ambulate especially in the setting of recent left BKA
Incentive spirometry encouraged
PO lasix
Recommendations appreciated by cardiology, vascular surgery, ID and psychiatry
Replete K>4, Mg>2
He has an outpatient appointment with Dr. Candelaria on 03/26/2024 and was recommended to keep that appointment
No additional recommendations at this time. Pulmonary service will now sign off. Please reconsult if there are any additional questions/concerns, or if patient's respiratory status deteriorates.
Assessment
-
Patient is a 73-year-old male with previous history of hypertension, hyperlipidemia, CHF admitted to on 01/28/2024 for nonhealing left heel wound. He notes that he had a blister that was broken up and on his left heel and was prescribed a
topical antibiotic which did not improve his symptoms. Vascular was consulted and due to progressive lethargy, there is concern for ongoing sepsis. Underwent urgent debridement of heel on 01/29/2024 and transferred postoperatively to ICU.
Impression:
Unresponsiveness, acute hypoxic respiratory failure status post intubation 01/30/24 --> extubated 02/05/2024 --> now awake but confused at times
Acute on chronic congestive heart failure exacerbation with reduced ejection fraction --> improved and close to dry weight
Wet gangrene of the left heel s/p excisional debridement through bone with lavage and irrigation 01/29/2024 - wound Cx grew MSSA and s/p L-BKA on 02/22/2024
Nonhealing left heel wound
Nausea/vomiting and diarrhea with flat plate concerning for ileus vs early SBO (likely the former)
Leukocytosis
RAUL(Cr baseline: approx. 1.2-1.3)
Hyponatremia (mild)
DM type II c/b hyperglycemia (HbA1C: 6.4 on 01/29/2024)
Chronic hypercapnic respiratory failure with metabolic alkalosis
Conditions present prior to admission
History of heart failure, ICM worsened LVEF at 30-35% - TTE 09/11/23
Hypertension
Hyperlipidemia
Morbid obesity, BMI 40.4
Left anterior fascicular block, chronic
History of persistent atrial fibrillation on Eliquis
Coronary disease with history of [place] 20+ years ago
History of TIA
Severe sleep apnea, HST AHI 61/78%, failed CPAP 2021
Diabetes
Chronic DJD, back pain
[id number], quit
Chronic cough, COPD/RLD on PFTs, follows at [facility]-Dr Montiel/Chanelle
PAD
Plan:
Acute hypoxemic respiratory failure: Ongoing.
Patient has only very mild COPD. Pulmonary function testing mainly show restriction with minimal airflow obstruction.
Prior CT chest in 2022: Patient does not have any significant parenchymal lung abnormalities or emphysema.
His pulmonary function testing is consistent with restriction due to obesity.
During last visit in pulmonary office 01/[address] Candelaria, he was only on nocturnal oxygen-did not require oxygen with ambulation.
COPD which is very mild not a significant contributor to hypoxemia as the patient is not bronchospastic.
-
Hypoxemia is likely related to volume overload/with bilateral pleural effusions hypoalbuminemia/morbid obesity and chronic hypercapnic respiratory failure.
-
Chronic hypercapnia due to obesity hypoventilation syndrome
Patient is noted to be intolerant to CPAP in the past.
Continue nocturnal BiPAP and with naps while in the hospital. He is benefiting from this.
Avoid sedatives/narcotics as able
Latest ABG 02/17/2024 with respiratory alkalosis-now Diamox on hold, diuretics were on hold due to RAUL--> now on PO lasix 40mg daily (home dose)
May use nebulizers as needed. Not bronchospastic on exam
Incentive spirometry encouraged
Heart failure with reduced ejection fraction chronic
Cardiology continues to follow.
Cardiac history as noted above-Patient follows cardiology (Kim)
Transthoracic echo from 12/12/2023 shows LVEF 35-40% --> echo repeated on 02/04 showed LVEF 35% with severe hypokinesis of the mid�distal
anterior, anteroseptal and apical dahl consistent with a mid LAD infarct; severe LAE
He underwent LHC and RHC on 09/13/2023 showed reduced CI at 1.36 and low PCWP at 13 with slightly elevated PADP at 17mmHg with mild pHTN
(mPAP: 23mmHg)
Elevated PVR with reduced PCWP indicated pre-capillary pHTN --> likely WHO Group III given he has untreated severe ERICK with alveolar hypoventilation
IV diuretics on hold 02/18/2024 due to RAUL.
-
Part of the bilateral pleural effusions is due to low albumin level due to critical illness-nutritional support. Will take several weeks to completely improve.
Noted: Unresponsiveness status post intubation 01/29 --> he was extubated on 02/04
CTA chest from 01/30/2024 shows large bilateral pleural effusions with bilateral mosaic attenuation likely due to interstitial edema, without acute PE
CXR on 02/09/2024 still shows evidence of pleural effusions with subsegmental atelectasis
At risk for reintubation if noncompliant with PAP, family has made him DNR/DNI on 02/13/2024
Non healing would of LLE, on abx for coverage, concern for sepsis --> s/p on Ancef (02/03 - 02/21) + flagyl (02/03 - 02/20) s/p Unasyn and meropenem
s/p debridement 01/29/24, tissue culture grew MSSA; wound vac
s/p left BKA on 02/22/2024
Continue with postoperative management per general surgery
Blood culture negative
Tissue culture from left foot collected 01/29/2024 grew MSSA
DVT ppx: Eliquis
PT/OT when able
Patient has a follow-up with our pulmonary office on 03/26/[address] Candelaria - I advised him to keep this appointment.
Care team has been able to change status to DNR on 02/13/2024 --> would continue GOC discussions
No additional recommendations at this time. Pulmonary service will now sign off. Thank you for allowing us to be involved in the care of this patient. Please reconsult if there are any additional questions/concerns, or if patient's respiratory
status deteriorates.
Diagnostic Data
CXR 02/05/2024: Nasrin is not particularly well seen on this projection. Tip of the endotracheal tube likely approximately 1.5 cm above the nasrin, similar to prior. Enteric catheter and left upper extremity PICC in position. Low lung volumes.
Bilateral small pleural effusions and adjacent atelectasis/consolidation.
Chest X-Ray: 01/28/24- No acute cardiopulmonary process.
09/14/23- No active cardiopulmonary disease.
Flat Plate 02/06/2024: Increased mild distention of small bowel, ileus versus at least partial distal small bowel obstruction.
CTA Chest 01/30/2024:Markedly limited study, as detailed above, with no findings to suggest bilateral CENTRAL pulmonary embolism. Large right lower lobe consolidation and moderate right pleural effusion.Left lower lobe subsegmental atelectasis and
small left pleural effusion. Groundglass opacity and mild septal thickening suggesting mild to moderate pulmonary edema. Endotracheal tube with tip in trachea above the nasrin. No pneumothorax.
CT Scan: CHEST 10/18/22- Stable small perifissural pulmonary nodules along the left major fissure. Stable mild small reticulonodular interstitial opacities in the bilateral upper lobes, right > left
CAP 05/04/22- No acute pathology of the chest, abdomen and pelvis identified. Few left upper and lower lobe pulmonary nodules. Bilateral small renal cysts. Bilateral too small to characterize hypodense renal lesions, likely benign cysts. Moderate
fecal material throughout the colon. Mild diverticulosis.
Echo: 12/12/23- Moderately reduced left ventricular systolic function. Estimated left ventricular ejection fraction is 35-40% . Wall motion analysis is limited due to image quality. Mild mitral regurgitation. Compared to the previous report
12/12/2023 findings are similar no significant change previously estimated ejection fraction 35%
PFT's: 03/29/23 FEV1 1.91 L 77%, FVC 2.57 L 75%, ratio 74. TLC 3.63 L 59%, DLCO 60%--moderately severe restriction, mild diffusion impairment
Reports and relevant images were personally reviewed.
-----
Total time spent today was 39 minutes for this encounter. Time includes reviewing laboratory test/imaging results, reviewing pertinent medical records, obtaining and reviewing medical history, performing an appropriate exam, ordering medications,
tests and procedures. Time also includes documentation of this encounter, coordinating patient care and communicating with other healthcare professionals. Total time does not include separately billed tests performed on this date of service.
Subjective Data
-
Date of Service:
Date of Service: February 24, 2024
Chief Complaint: Pulmonary Follow Up
Subjective:
Patient was seen and evaluated today at bedside. He is resting in bed in no acute distress, on 6 L/min via midflow nasal with SpO2 95%. Heart rate 101 and BP 115/59. Wore BiPAP overnight on 18/8cmH2O bled with 15 L/min. He is arousable to voice
and tactile stimulation. No acute events reported from overnight.
Review of Systems
General: Other (Unable to obtain given patient's clinical status/dementia)
Objective Data
Data Reviewed
Vital Signs / I&O / Oxygen:
Vital Signs
Temp Pulse Resp BP Pulse Ox
97.1 F 90 25 92/65 96
02/24/24 07:55 02/24/24 06:00 02/24/24 06:00 02/24/24 06:00 02/24/24 06:00
Intake and Output
02/23/24 02/24/24 02/25/24
06:59 06:59 06:59
Intake Total 770 / 770
Output Total 1400 / 1400 350 / 350
Balance -630 / -630 -350 / -350
SaO2 [CPAP/PSV] 98
SaO2 [A/C] 100
SaO2 96
Nasal Cannula flow liters per 5
minute
Physical Exam
General: Respiratory Distress (negative), Comfortable, Chills (negative) and Sweats (negative)
HEENT: Normocephalic and Anicteric
Cardiovascular: Irregular Rhythm (Irregularly irregular), Rub (negative) and Peripheral Edema (negative)
Respiratory: Wheeze (negative), Crackles (Bilateral), Rhonchi (negative) and Non-Labored Respirations
GI: Soft, Distended (Abdominal obesity), Non Tender and Normal Bowel Sounds
Neurology: Tremors (negative) and Lethargic (confused)
Skin: Warm, Dry, Cyanosis (negative) and Jaundice (negative)
Labs/Micro/Reports
Lab Data
02/24/24 05:41
02/24/24 05:41
[2024-02-24] MEDS: TOPROL XL 50 MG PO ×2 (09:33→20:05)
[2024-02-24] MEDS: RISPERDAL M-TAB (ORALLY DISINTEGRATING) 0.25 MG PO (09:33)
[2024-02-24] MEDS: LOW STRENGTH ASPIRIN 81 MG TUBE (09:33)
[2024-02-24] MEDS: LASIX 40 MG PO (09:35)
[2024-02-24] MEDS: DESENEX/MITRAZOL/ZEASORB 1 APPLIC TOPICAL ×2 (09:36→20:06)
[2024-02-24] MEDS: ELIQUIS 5 MG PO ×2 (09:36→20:06)
[2024-02-24] MEDS: NOVOLOG FLEXPEN-LOW RESISTANCE 1 UNITS SC ×2 (09:37→17:40)
[2024-02-24 09:47] LABS: Glucose - Point of Care 150 mg/dl (70-99)
[2024-02-24] MEDS: NOVOLOG FLEXPEN SC (10:22)
[2024-02-24 11:20] LABS: Glucose - Point of Care 159 mg/dl (70-99)
--- NOTE | 2024-02-24 11:30 | W.PN.VS ---
Today's Communication / Plan
-
POD 2 BKA
Plan:
-Dressing down and wound looks great
- change dressing daily with dry gauze, princess and KARL
- follow up as outpatient in 2-4 weeks
- vascular surgery signs off
Assessment/Plan
-
POD 2 BKA
Plan:
-Dressing down and wound looks great
- change dressing daily with dry gauze, princess and KARL
- follow up as outpatient in 2-4 weeks
- vascular surgery signs off
Subjective Data
-
Date of Service: February 24, 2024
POD 2 L BKA
No complaints
Confused
Objective Data
-
Vital Signs
Temp Pulse Resp BP Pulse Ox
99.4 F 90 25 92/65 96
02/24/24 11:10 02/24/24 06:00 02/24/24 06:00 02/24/24 06:00 02/24/24 06:00
Intake and Output
02/23/24 02/24/24 02/25/24
06:59 06:59 06:59
Intake Total 770 / 770
Output Total 1400 / 1400 350 / 350
Balance -630 / -630 -350 / -350
Intake:
Oral fluids 720 / 720
IV fluids (Total) 50 / 50
normal saline 50 / 50
Output:
Urine, Street 1050 / 1050 350 / 350
Urine, Voided 350 / 350
Other:
How many times incontinent 1 1
MODERATE amount urine
How many times incontinent 1
SATURATED amount urine
Lab Results
02/24/24 05:41
02/24/24 05:41
Calcium 8.3 mg/dl (8.4-10.2) L 02/24/24 05:41
Phosphorus 3.7 mg/dl (2.5-4.5) 02/07/24 04:41
Magnesium 1.8 mg/dl (1.6-2.3) 02/13/24 03:09
Total Bilirubin 0.5 mg/dl (0.2-1.3) 02/07/24 04:41
Direct Bilirubin 0.7 mg/dl (0.0-0.4) H 01/31/24 04:35
AST 34 U/L (17-59) 02/07/24 04:41
ALT 15 U/L (0-50) 02/07/24 04:41
Alkaline Phosphatase 160 U/L (38-126) H 02/07/24 04:41
Total Protein 6.6 g/dl (6.3-8.2) 02/07/24 04:41
Albumin 2.7 g/dl (3.5-5.0) L 02/07/24 04:41
Physical Exam
-
Dressing taken down to L BKA
incision intact, clean, dry, no erythema, no drainage, no tenderness, mild edema
[2024-02-24] MEDS: MORPHINE SULFATE 2 MG IV (12:07)
[2024-02-24 13:23] LABS: Glucose - Point of Care 212 mg/dl (70-99)
[2024-02-24] MEDS: NOVOLOG FLEXPEN 9 UNITS SC ×2 (13:36→17:41)
[2024-02-24] MEDS: NOVOLOG FLEXPEN-LOW RESISTANCE 2 UNITS SC (13:37)
--- NOTE | 2024-02-24 16:02 | W.PN.UPDATE ---
Update Note
Progress Note Update
Pt seen at bedside, chart reviewed. Remains intermittently agitated, still needing a one to one sitter and soft mitts. Observed chewing mitt avidly, needed frequent redirection but almost immediately would resume. Not distracted by busybook. Is POD2
s/p BKA and at risk of worsening delriium & agitation, reported by sitter to at times try to grab at surgery site, remains at risk of injuring himself when agitated/confused. Not oriented, not answering questions meaningfully, at times mumbling to
self.
Increase risperidone to 0.5mg AM & afternoon + 0.75mg HS, continue 0.5mg BIDPRN
Psychiatry will reassess tomorrow
[2024-02-24 16:47] LABS: Glucose - Point of Care 196 mg/dl (70-99)
--- NOTE | 2024-02-24 17:07 | W.PN.HOSP.TC ---
Today's Communication/Plan
-
Assessment / Plan
Assessment / Plan
Acute on chronic
-EF 30-35
-Euvolemic though does have JVD on exam however suspect related likely related to pulmonary hypertension
-Continue p.o. Lasix and beta-misha
-Unable to provide GDMT due to RAUL on CKD
-Cardiology following
Sepsis secondary to osteomyelitis
-Resolved, source controlled as BKA performed 02/11
-Left heel bone biopsy MSSA
-Completed cefazolin
COPD acute on chronic along with ERICK and pulmonary hypertension
-BiPAP at bedtime as needed
-Maintain SpO2 between 88 and 92%
-Incentive spirometer
Hyponatremia
-Encourage p.o.
Atrial fibrillation
-Continue beta-misha and Eliquis
-Monitor on telemetry
Diabetes
-Continue long and short acting insulin
-Accu-Cheks
-Goal blood glucose 1 40-1 80
Anticipated Discharge: > 48 hours
Subjective/Interval History
-
Date of Service: February 24, 2024
seen and examined
no ew complaints
no acute overnight events
Objective Data
-
Labs:
Laboratory Results
02/24/24
05:41
WBC 12.5 H
Hgb 7.8 L
Hct 25.3 L
Plt Count 238
Sodium 133 L
Potassium 4.8
Chloride 97 L
Carbon Dioxide 30
BUN 42 H
Creatinine 1.5 H
Glucose 122 H
Calcium 8.3 L
Vital Signs:
Vital Signs
Temp Pulse Resp BP Pulse Ox
97.9 F 97 27 100/89 94
02/24/24 15:05 02/24/24 14:00 02/24/24 14:00 02/24/24 14:00 02/24/24 14:00
I&O
02/23/24 02/24/24 02/25/24
06:59 06:59 06:59
Intake Total 770 / 770
Output Total 1400 / 1400 350 / 350
Balance -630 / -630 -350 / -350
Physical Exam
-
General: No Apparent Distress
HEENT: Normocephalic and Atraumatic
Respiratory: Clear to Auscultation
Cardiac: Regular Rhythm and S1/S2
GI: Soft, Nontender and Nondistended
Skin: Warm
Neuro: Other (lethargic, does awake to questioning though)
[2024-02-24] MEDS: LIPITOR PO (17:40)
[2024-02-24] MEDS: RISPERDAL M-TAB (ORALLY DISINTEGRATING) 0.75 MG PO (20:03)
[2024-02-24] MEDS: PEPCID 20 MG PO (20:06)
[2024-02-24 21:45] LABS: Glucose - Point of Care 214 mg/dl (70-99)
[2024-02-24] MEDS: LANTUS 0.25 UNITS SC (22:18)
[2024-02-24] MEDS: MELATONIN 5 MG PO (22:18)
[2024-02-25] VITALS (16 sets, daily range): BP systolic 86–119; BP diastolic 39–100; PULSE 90; O2SAT 94; BMI 34.6
[2024-02-25] MEDS: TYLENOL 650 MG PO ×2 (00:04→21:27)
[2024-02-25 04:51] LABS: Hematocrit 26.9 % (39.0-52.0); Hemoglobin 8.3 g/dL (13.0-18.0); Mean Corp Hgb Conc. 30.9 g/dL (33.0-37.0); Mean Corpuscular Hgb 25.8 pg (27.0-31.0); Mean Corpuscular Volume 83.5 fL (80.0-94.0); Mean Platelet Volume 11.2 fL (7.4-10.4); Platelet Count 248 10^3/uL (130-400); Red Blood Cell Count 3.22 10^6/uL (4.70-6.10); Red Cell Dist. Width 21.7 % (11.5-14.5); White Blood Cell Count 12.1 10^3/uL (4.8-10.8)
[2024-02-25 05:18] LABS: Blood Urea Nitrogen 44 mg/dl (9-20); Calcium 8.2 mg/dl (8.4-10.2); Carbon Dioxide 32 mmol/L (22-30); Chloride 95 mmol/L (98-107); Estimated Creatinine Clearance 50 ml/min; Glucose 161 mg/dl (70-99); Potassium 4.6 mmol/L (3.5-5.1); Sodium 135 mmol/L (135-145); eGFR 52.41
--- NOTE | 2024-02-25 05:36 | PTCARENOTE ---
Received pt at change of shift. 1:1 present at bedside throughout shift. Agitated on and off throughout the night. Unable to orient to time, place, situation. Oriented only to person. Bipap on pt for approx. 6 hours. RT removed mask.
[2024-02-25 09:00] LABS: Glucose - Point of Care 161 mg/dl (70-99)
[2024-02-25] MEDS: NOVOLOG FLEXPEN-LOW RESISTANCE 1 UNITS SC ×2 (09:14→17:57)
[2024-02-25] MEDS: NOVOLOG FLEXPEN 9 UNITS SC ×2 (09:16→14:41)
[2024-02-25] MEDS: DESENEX/MITRAZOL/ZEASORB 1 APPLIC TOPICAL ×2 (09:17→19:56)
[2024-02-25] MEDS: ELIQUIS 5 MG PO ×2 (09:17→19:56)
[2024-02-25] MEDS: RISPERDAL M-TAB (ORALLY DISINTEGRATING) 0.5 MG PO ×2 (09:19→14:39)
[2024-02-25] MEDS: MORPHINE SULFATE 2 MG IV (09:20)
[2024-02-25] MEDS: LOW STRENGTH ASPIRIN 81 MG TUBE (09:20)
[2024-02-25] MEDS: LASIX 40 MG PO (09:20)
[2024-02-25] MEDS: TOPROL XL 50 MG PO ×2 (09:21→19:56)
--- NOTE | 2024-02-25 13:51 | W.PN.HOSP.TC ---
Today's Communication/Plan
-
Assessment / Plan
Assessment / Plan
General: No Apparent Distress
HEENT: Normocephalic and Atraumatic
Respiratory: Clear to Auscultation
Cardiac: Regular Rhythm and S1/S2
GI: Soft, Nontender and Nondistended
Left BKA
Skin: Warm
Acute on chronic HFrEF
-EF 30-35
-Euvolemic though does have JVD on exam however suspect related likely related to pulmonary hypertension
-Continue p.o. Lasix and beta-misha
-Unable to provide GDMT due to RAUL on CKD
-Cardiology following
Sepsis secondary to osteomyelitis
-Resolved, source controlled as BKA performed 02/11
-Left heel bone biopsy MSSA
-Completed cefazolin
COPD acute on chronic along with REICK and pulmonary hypertension
-BiPAP at bedtime as needed
-Maintain SpO2 between 88 and 92%
-Incentive spirometer
Hyponatremia
-Encourage p.o.
Atrial fibrillation
-Continue beta-misha and Eliquis
-Monitor on telemetry
Diabetes
-Continue long and short acting insulin
-Accu-Cheks
-Goal blood glucose 1 40-1 80
Anticipated Discharge: 24 - 48 hours
Subjective/Interval History
-
Date of Service: February 25, 2024
seen and exmained
no new complaitns
no acute overnigth events
more awake today, answering appropriately
Objective Data
-
Labs:
Laboratory Results
02/25/24
04:18
WBC 12.1 H
Hgb 8.3 L
Hct 26.9 L
Plt Count 248
Sodium 135
Potassium 4.6
Chloride 95 L
Carbon Dioxide 32 H
BUN 44 H
Creatinine 1.4 H
Glucose 161 H
Calcium 8.2 L
Vital Signs:
Vital Signs
Temp Pulse Resp BP Pulse Ox
98.7 F 84 24 113/57 95
02/25/24 11:53 02/25/24 10:00 02/25/24 10:00 02/25/24 10:10 02/25/24 10:00
I&O
02/24/24 02/25/24 02/26/24
06:59 06:59 06:59
Intake Total 1440 / 1440 240 / 240
Output Total 350 / 350
Balance -350 / -350 1440 / 1440 240 / 240
--- NOTE | 2024-02-25 14:02 | W.PN.CD ---
Today's Communication / Plan
-
Continue gentle diuresis with Lasix 40 mg p.o. daily
Add back GDMT as BP and kidney function allows
Impression / Plan
-
Impression/Plan: 73 y/o male (known to Dr. Alvarez, his primary Extractor And Wringer Operator) with HTN, HLD, IDDM, COPD, permanent atrial fibrillation (on apixaban), CAD with ICMO, PAD with prior LSFA endovascular intervention and obesity admitted with
non-healing left foot ulcer/wet gangrene complicated by sepsis, s/p left heal debridement which was complicated by VDRF and hypotension requiring pressor support, recovered, now s/p LBKA.
#HFrEF
-Acute on chronic.
-LVEF 35%.
-Furosemide 40 IV BID given this admit and then held. Patient given acetazolamide for 3 days.
-Dry weight has not truly been established - will need to be reassessed in the absence of his LLE.
-Continue GDMT with metoprolol.
-SGLT2i/ACEi/ARB/ARNi/MRA on hold for RAUL.
-Weight and Cr downtredning with gentle diuresis. Continue Lasix 40 mg p.o. daily.
#Permanent Atrial fibrillation
-Chronic.
-Rate control: metoprolol succinate 50 mg twice daily.
-CHADS2-Vasc = 4 (CHF, Age x2, Vascular Disease).
-Continue apixaban 5 mg twice daily
#FEN/Renal
-Acute kidney injury with hyponatremia. Improving.
-Hyperkalemia resolved.
-FENa = 0.16% - suspect cardiorenal syndrome and not true intravascular depletion.
-Trend with diuresis
#Significant, complex lung disease
-Chronic.
-This is the primary mixer driver of his hypoxia as he has been shown to be relatively euvolemic.
-Significant CO2 retention.
-Pulmonology consulted and following.
#Left heal wet gangrene/septic shock/osteomyelitis
-Acute on chronic.
-Recovered from sepsis/shock.
-Now s/p LBKA via vascular surgery.
-ABX completed. ID signed off.
-Goal MAP > 65 mmHg.
#Anemia
-Chronic, downtrending.
-Clearly a component of AoCD.
-Low(er) threshold for transfusion. There may be a component of dilution.
-If the patient is transfused, give additional furosemide 40 mg IV to avoid TACO.
#Ischemic cardiomyopathy
-Chronic.
-LVEF = 35%.
-GDMT: will hold GDMT other than Toprol XL pre-operative pending vascular surgery and reintroduce post-operatively as above.
#Coronary artery disease
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
-Continue ASA/statin.
Subjective/Interval History:
Patient still confused this morning. Daughter is at bedside. He was given p.o. Lasix 40 mg daily yesterday. Weight is 97.3 kg from 98.7 kg. Creatinine is 1.4 from 1.5. Telemetry shows atrial fibrillation with heart rate in the 100s to 120s.
DATA:
Echo, 02/05/2024:
CONCLUSIONS
Moderately reduced left ventricular systolic function.
Left ventricular ejection fraction is 35% by visual estimate.
Severe hypokinesis of the mid to distal anterior, anteroseptal and apical dahl
c/w a mid LAD infarct.
Severe left atrial enlargement.
No significant valvular disease.
No significant change since the prior study of 09/11/2023.
Cath, 09/13/2023:
1. Right dominant circulation with a 50% lesion in the distal third of the RPDA, a diffusely diseased, small first obtuse marginal, a 30% lesion in the mid ramus, a 40% lesion in the origin of the first diagonal and a chronic total occlusion of the
mid LAD (known since cardiac catheterization in 1999).
2. Normal filling pressures (LVEDP = 10 mmHg, PCWP = 13 mmHg at 105.7 kg).
3. Severely impaired cardiac function (cardiac index = 1.36 L/min/m�, a VO2 difference 8.63 volume percent).
4. Mild precapillary pulmonary hypertension (mean PA pressure = 23 mmHg, PVR = 3.44 Moser units).
5. Significantly elevated peripheral vascular resistance (1787 dynes*seconds*cm^5).
Physical Exam
Vital Signs/Labs
Vital Signs
Temp Pulse Resp BP Pulse Ox
98.7 F 84 24 113/57 95
02/25/24 11:53 02/25/24 10:00 02/25/24 10:00 02/25/24 10:10 02/25/24 10:00
02/24/24 02/25/24 02/26/24
06:59 06:59 06:59
Actual Weight 98.7 kg 97.3 kg
02/25/24 04:18
02/25/24 04:18
PT 18.0 Sec (11.4-14.6) H 02/23/24 04:10
INR 1.43 02/23/24 04:10
APTT 35.3 Sec (23.4-35.0) H 02/23/24 04:10
Magnesium 1.8 mg/dl (1.6-2.3) 02/13/24 03:09
Triglycerides 150 mg/dl (10-149) H 02/05/24 03:31
01/31/24 02/07/24 02/11/24
09:09 04:41 03:56
Gwh-U-Tljugbyyfth Pept [id number] 7400
02/20/24
05:24
Pan-Z-Zzcglqvthqu Pept 3940
Physical Exam
Constitutional: No acute distress, Comfortable and Confusion
Cardiovascular: Pedal edema is absent, Rhythm/rate is irregular, S1S2 is normal and Murmur/rub/gallop absent
Respiratory: Respiratory effort normal and Lungs clear to auscul.
Data Reviewed
-
Date of Service: February 25, 2024
Medical Decision Making: Reviewed Test Results, Independent Historian Assessment, Test Interpretation and Review of Case with other Provider
EKG: Tracing Personally Visualized and interpreted
Echo: Report Reviewed by me
Labs: Labs Reviewed by me
[2024-02-25 14:34] LABS: Glucose - Point of Care 249 mg/dl (70-99)
[2024-02-25] MEDS: NOVOLOG FLEXPEN-LOW RESISTANCE 2 UNITS SC (14:40)
[2024-02-25 16:34] LABS: Glucose - Point of Care 175 mg/dl (70-99)
--- NOTE | 2024-02-25 16:47 | W.PN.UPDATE ---
Update Note
Progress Note Update
Pt seen at bedside, chart reviewed. Remains intermittently agitated, still needing soft mitts. As yesterday, observed chewing mitt avidly, was a bit more redirectable today but minimally so. Did respond to my questions today a few times and seems to
be having some periods of improved lucidity to some degree, however remains disoriented and confused overall. Remains risk to himself as when becomes agitated can grab at site of bka as he remains difficult to redirect during these times.
Increase risperidone a bit more to 0.5mg AM & afternoon + 1mg HS, continue 0.5mg BIDPRN
Psychiatry will reassess tomorrow
[2024-02-25] MEDS: NOVOLOG FLEXPEN 4 UNITS SC (17:57)
[2024-02-25] MEDS: RISPERDAL M-TAB (ORALLY DISINTEGRATING) 1 MG PO (19:56)
[2024-02-25] MEDS: MELATONIN 5 MG PO (19:56)
[2024-02-25] MEDS: PEPCID 20 MG PO (19:56)
[2024-02-25] MEDS: LANTUS 0.25 UNITS SC (19:56)
[2024-02-25 20:06] LABS: Glucose - Point of Care 118 mg/dl (70-99)
[2024-02-26] VITALS (18 sets, daily range): BP systolic 90–131; BP diastolic 57–93; PULSE 2–108; O2SAT 96; BMI 34.2
[2024-02-26 04:21] LABS: Hematocrit 24.1 % (39.0-52.0); Hemoglobin 7.6 g/dL (13.0-18.0); Mean Corp Hgb Conc. 31.5 g/dL (33.0-37.0); Mean Corpuscular Hgb 26.2 pg (27.0-31.0); Mean Corpuscular Volume 83.1 fL (80.0-94.0); Mean Platelet Volume 11.1 fL (7.4-10.4); Platelet Count 242 10^3/uL (130-400); Red Cell Dist. Width 21.6 % (11.5-14.5)
[2024-02-26 04:44] LABS: Blood Urea Nitrogen 44 mg/dl (9-20); Carbon Dioxide 34 mmol/L (22-30); Chloride 99 mmol/L (98-107); Estimated Creatinine Clearance 46 ml/min; Glucose 65 mg/dl (70-99); Potassium 4.8 mmol/L (3.5-5.1); Sodium 138 mmol/L (135-145); eGFR 48.25
--- NOTE | 2024-02-26 06:35 | PTCARENOTE ---
Patient anxious and agitated overnight. 1:[address] BIPAP on. Patient continuously attempts to rip off BIPAP. Medsitter and b/l soft mitts in place.
--- NOTE | 2024-02-26 07:20 | PN.DE.MGMTRT ---
Insulin Management
- -
02/26/2024: Diabetes management Follow up:
73 years old male with multiple comorbidities admitted to the hospital on 01/27 with sepsis due to left foot plantar infected ulcer 2/2 diabetic foot ulcer and peripheral vascular disease S/P left heal debridement. Diabetes consult requested on 02/04
for Hyperglycemia.
PMH: HTN, HLD, CAD, PVD, CHF, COPD and T2DM. Was taking Jardiance 10mg daily, Tresiba 45 units daily, metformin 1000mg BID and NovoLog 7-20 units AC. A1C 6.4%.
Per Vascular surgeon, OR tissue cultures of bone-->Staph aureus (confirming osteomyelitis)
02/25 POD 3 s/p amputation L lower leg. Glucose has trended 150 to 249. Fasting this AM 65. Will reduce HS lantus to 22 units and continue AC novolog 9 units with low corrective insulin
Will follow.
Diabetes History
- -
Type of Diabetes: 2 requiring insulin
Pre-Admission Diabetes Regimen
02/26/24
03:45
Creatinine 1.5 H
Lab Results
Hemoglobin A1c 6.4 % (4.0-5.6) H 01/29/24 07:22
Insulin Pump Settings
IP Diabetes Regimen
02/25/24 02/25/24 02/25/24
08:48 14:22 16:21
Glucose
POC Glucose 161 H 249 H 175 H
02/25/24 02/26/24
19:55 03:45
Glucose 65 L
POC Glucose 118 H
Meal type: Breakfast
Amount consumed: 75%
Patient Education
[2024-02-26 07:50] LABS: Glucose - Point of Care 388 mg/dl (70-99)
--- NOTE | 2024-02-26 07:50 | W.PN.HOSP.TC ---
Today's Communication/Plan
-
.
Assessment / Plan
Assessment / Plan
Mr. Shar Wiggins is a 73yo pmh HFrEF (EF 30-35%), CKD stage 3b, IDDM, PAD, permanent afib, pulm htn, COPD admitted for an infected L foot plantar ulcer.
Acute on chronic HFrEF
-EF 30-35
-Continue p.o. Lasix and beta-misha
-Cardiology following
- trend daily weights, I's&O's, renal function
Sepsis secondary to osteomyelitis
-Resolved, source controlled as BKA performed 02/21
-Left heel bone biopsy MSSA
-Completed cefazolin
COPD acute on chronic along with ERICK and pulmonary hypertension
-BiPAP at bedtime as needed
-Maintain SpO2 between 88 and 92%
-Incentive spirometer
Loose stools
-c diff, norovirus pending
Hyponatremia
-Encourage p.o. intake
-resolved
Permanent atrial fibrillation
-Continue beta-misha and Eliquis
-Monitor on telemetry
Diabetes
-Continue long and short acting insulin
-Accu-Cheks
Delirium
- delirium precautions - reorientation, lights on during day and off at night
- ativan last given 02/22
Diet: 4g sodium
DVT prophylaxis: eliquis
CODE STATUS: DNR
Anticipated Discharge: 24 - 48 hours
Subjective/Interval History
-
Date of Service: February 26, 2024
Mr. Shar Wiggins is a 73yo pmh HFrEF (EF 30-35%), CKD stage 3b, IDDM, PAD, permanent afib, pulm htn, COPD admitted for an infected L foot plantar ulcer. Pt confused overnight, requiring mitts and a one-to-one to monitor for aspiration with BiPAP.
Per RN, pt is having several loose stools that have an odor.
Objective Data
-
Labs:
Laboratory Results
02/26/24
03:45
WBC 10.0
Hgb 7.6 L
Hct 24.1 L
Plt Count 242
Sodium 138
Potassium 4.8
Chloride 99
Carbon Dioxide 34 H
BUN 44 H
Creatinine 1.5 H
Glucose 65 L
Calcium 8.0 L
Vital Signs:
Vital Signs
Temp Pulse Resp BP Pulse Ox
97.3 F 94 25 100/81 99
02/26/24 03:46 02/26/24 06:00 02/26/24 06:00 02/26/24 06:00 02/26/24 06:00
I&O
02/25/24 02/26/24 02/27/24
06:59 06:59 06:59
Intake Total 1440 / 1440 480 / 480
Balance 1440 / 1440 480 / 480
Review of Systems
-
Unable to obtain full review of systems at this time due to: Acuity
History Source: Patient
Physical Exam
-
General: Well Developed and Well Nourished
HEENT: Normocephalic, Atraumatic, Moist Mucous Membranes and Oxygen (7L O2 midflow)
Respiratory: Wheezes and Non Labored Respirations
Cardiac: S1/S2 and Irregular Rhythm
GI: Soft, Nontender, Nondistended and Normal Bowel Sounds
Musculoskeletal: No Clubbing, No Cyanosis and No Edema
Skin: Warm and Dry
Neuro: Awake
Psych: Confused
[2024-02-26 08:10] LABS: Glucose - Point of Care 75 mg/dl (70-99)
--- NOTE | 2024-02-26 08:35 | PTCARENOTE ---
Patient received from project management advisor. Patient resting comfortably in bed. No events noted overnight. No complaints of pain at this time, more so non-verbal cues. Patient was on BiPAP HS, now on 7L midflow N/C, will attempt to wean as tolerated.
Wound care done overnight, to be assessed and dressed as needed. No tests scheduled at this time. Call castellon in reach.
--- NOTE | 2024-02-26 08:43 | W.PN.CD ---
Today's Communication / Plan
-
add back SGLT2i (farxiga while here; takes jardiance at home)
-trend Cr: CKD3b may be new baseline
Impression / Plan
-
Impression/Plan: 73 y/o male (known to Dr. Alvarez, his primary Rn Patient Care) with HTN, HLD, IDDM, COPD, permanent atrial fibrillation (on apixaban), CAD with ICMO, PAD with prior LSFA endovascular intervention and obesity admitted with
non-healing left foot ulcer/wet gangrene complicated by sepsis, s/p left heal debridement which was complicated by VDRF and hypotension requiring pressor support, recovered, now s/p LBKA.
#HFrEF
-Acute on chronic, resolved s/p IV lasix
-LVEF 35%.
-Continue Lasix 40 mg p.o. daily.
-add back SGLT2i (farxiga while here; takes jardiance at home)
-trend Cr: CKD3b may be new baseline
#Ischemic cardiomyopathy
-Chronic.
-LVEF = 35%.
-GDMT: continue Toprol XL 50mg bid
-add back SGLT2i (farxiga while here; takes jardiance at home)
-trend Cr: CKD3b may be new baseline
-assess to add back home lisinopril and aldactone based on Cr and BP trend
#Permanent Atrial fibrillation
-Chronic.
-Rate control: metoprolol succinate 50 mg twice daily.
-CHADS2-Vasc = 4 (CHF, Age x2, Vascular Disease).
-Continue apixaban 5 mg twice daily
#Significant, complex lung disease
-Chronic.
-This is the primary boat driver of his hypoxia as he has been shown to be relatively euvolemic.
-Significant CO2 retention.
-Pulmonology consulted and following.
#Left heal wet gangrene/septic shock/osteomyelitis
-Acute on chronic.
-Recovered from sepsis/shock.
-Now s/p LBKA via vascular surgery.
-ABX completed. ID signed off.
-Goal MAP > 65 mmHg.
#Anemia
-Chronic, downtrending.
-Clearly a component of AoCD.
-Low(er) threshold for transfusion. There may be a component of dilution.
-If the patient is transfused, give additional furosemide 40 mg IV to avoid TACO.
#Coronary artery disease
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
-Continue ASA/statin.
Subjective/Interval History:
Confused, wearing mitts.
DATA:
Echo, 02/05/2024:
CONCLUSIONS
Moderately reduced left ventricular systolic function.
Left ventricular ejection fraction is 35% by visual estimate.
Severe hypokinesis of the mid to distal anterior, anteroseptal and apical dahl
c/w a mid LAD infarct.
Severe left atrial enlargement.
No significant valvular disease.
No significant change since the prior study of 09/11/2023.
Cath, 09/13/2023:
1. Right dominant circulation with a 50% lesion in the distal third of the RPDA, a diffusely diseased, small first obtuse marginal, a 30% lesion in the mid ramus, a 40% lesion in the origin of the first diagonal and a chronic total occlusion of the
mid LAD (known since cardiac catheterization in 1999).
2. Normal filling pressures (LVEDP = 10 mmHg, PCWP = 13 mmHg at 105.7 kg).
3. Severely impaired cardiac function (cardiac index = 1.36 L/min/m�, a VO2 difference 8.63 volume percent).
4. Mild precapillary pulmonary hypertension (mean PA pressure = 23 mmHg, PVR = 3.44 Moser units).
5. Significantly elevated peripheral vascular resistance (1787 dynes*seconds*cm^5).
Physical Exam
Vital Signs/Labs
Vital Signs
Temp Pulse Resp BP Pulse Ox
98.3 F 94 25 100/81 99
02/26/24 07:40 02/26/24 06:00 02/26/24 06:00 02/26/24 06:00 02/26/24 06:00
02/25/24 02/26/24 02/27/24
06:59 06:59 06:59
Actual Weight 97.3 kg 96 kg
02/26/24 03:45
02/26/24 03:45
PT 18.0 Sec (11.4-14.6) H 02/23/24 04:10
INR 1.43 02/23/24 04:10
APTT 35.3 Sec (23.4-35.0) H 02/23/24 04:10
Magnesium 1.8 mg/dl (1.6-2.3) 02/13/24 03:09
Triglycerides 150 mg/dl (10-149) H 02/05/24 03:31
01/31/24 02/07/24 02/11/24
09:09 04:41 03:56
Wfg-N-Nxczeamgphn Pept [id number] 6410 7400
02/20/24
05:24
Rzs-T-Epwosjyqkov Pept 3940
Physical Exam
Constitutional: Confusion
EENT: Moist mucous membranes
Cardiovascular: Pedal edema is absent, JVD pressure is normal, Rhythm/rate is irregular and Systolic murmur present
Respiratory: Respiratory effort normal and Lungs clear to auscul.
Data Reviewed
-
Date of Service: February 26, 2024
EKG: Other (Tele: Afib, avg 90s)
Labs: Labs Reviewed by me
[2024-02-26] MEDS: NOVOLOG FLEXPEN SC ×3 (09:23→18:59)
[2024-02-26] MEDS: NOVOLOG FLEXPEN-LOW RESISTANCE SC ×2 (09:24→17:05)
[2024-02-26] MEDS: ELIQUIS 5 MG PO ×2 (09:42→19:44)
[2024-02-26] MEDS: LOW STRENGTH ASPIRIN 81 MG TUBE (09:42)
[2024-02-26] MEDS: RISPERDAL M-TAB (ORALLY DISINTEGRATING) 0.5 MG PO ×2 (09:42→15:11)
[2024-02-26] MEDS: LASIX 40 MG PO (09:43)
[2024-02-26] MEDS: TOPROL XL 50 MG PO ×2 (09:43→19:44)
[2024-02-26] MEDS: FARXIGA 10 MG PO (09:43)
[2024-02-26] MEDS: DESENEX/MITRAZOL/ZEASORB 1 APPLIC TOPICAL ×2 (09:44→19:45)
--- NOTE | 2024-02-26 11:31 | W.PN.UPDATE ---
Update Note
Progress Note Update
Pt seen, chart reviewed. Pt awake, slightly restless, calm overall at present. He is in mitts, confused/disoriented, appears to be oriented to name only. Risperidone was increased yesterday to 0.5 mg AM and 2 pm, 1 mg HS. No EPS evident.
Imp: Delirium- multifactorial, with intermittent agitation
Rec: continue Risperidone, monitor for side effects
will follow
[2024-02-26 12:18] LABS: Glucose - Point of Care 170 mg/dl (70-99)
--- NOTE | 2024-02-26 13:41 | CM ---
CM following re: discharge planning.
Physiatry consult pending since 02/17.
PT and OT evaluations noted - skilled level of care recommended: pt is dependent with care, requires max assistance, on med sitter. Bi-pap at , setting 18/8, requires 7L NC of O2.
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
Per [facility] review, [facility] and [facility] offered a bed.
D/C plan: [facility] if pt is improved vs preferred SNF.
CM will follow with discharge plan updates as hospitalization progresses
[2024-02-26] MEDS: NOVOLOG FLEXPEN 9 UNITS SC (13:54)
[2024-02-26] MEDS: NOVOLOG FLEXPEN-LOW RESISTANCE 1 UNITS SC (13:54)
[2024-02-26 16:50] LABS: Glucose - Point of Care 138 mg/dl (70-99)
[2024-02-26] MEDS: MELATONIN 5 MG PO (19:44)
[2024-02-26] MEDS: LANTUS 0.22 UNITS SC (19:44)
[2024-02-26] MEDS: RISPERDAL M-TAB (ORALLY DISINTEGRATING) 1 MG PO (19:44)
[2024-02-26] MEDS: PEPCID 20 MG PO (19:44)
[2024-02-26 19:54] LABS: Glucose - Point of Care 176 mg/dl (70-99)
[2024-02-26] MEDS: TYLENOL 650 MG PO (23:15)
[2024-02-27] VITALS (12 sets, daily range): BP systolic 100–132; BP diastolic 45–93; PULSE 2–98; BMI 33.9
[2024-02-27 04:30] LABS: Hemoglobin 7.3 g/dL (13.0-18.0); Mean Corp Hgb Conc. 30.4 g/dL (33.0-37.0); Mean Corpuscular Volume 85.4 fL (80.0-94.0); Mean Platelet Volume 10.7 fL (7.4-10.4); Platelet Count 233 10^3/uL (130-400); Red Blood Cell Count 2.81 10^6/uL (4.70-6.10); White Blood Cell Count 7.7 10^3/uL (4.8-10.8)
[2024-02-27 04:53] LABS: Blood Urea Nitrogen 40 mg/dl (9-20); Calcium 7.7 mg/dl (8.4-10.2); Carbon Dioxide 32 mmol/L (22-30); Chloride 98 mmol/L (98-107); Estimated Creatinine Clearance 53 ml/min; Glucose 118 mg/dl (70-99); Potassium 4.2 mmol/L (3.5-5.1); Sodium 136 mmol/L (135-145); eGFR 57.29
--- NOTE | 2024-02-27 05:31 | PTCARENOTE ---
Addendum entered by Catrachita Merchant RN 02/27/24 05:48:
Patient only slept from 2am-4am.
Original Note:
No acute events overnight. B/l mitts, medsitter, and 1:[address] bipap is on. Patient settled down after 2 am and fell asleep.
--- NOTE | 2024-02-27 07:14 | W.PN.HOSP.TC ---
Today's Communication/Plan
-
.
Assessment / Plan
Assessment / Plan
Mr. Shar Wgigins is a 73yo pmh HFrEF (EF 30-35%), CKD stage 3b, IDDM, PAD, permanent afib, pulm htn, COPD admitted for an infected L foot plantar ulcer.
Acute on chronic HFrEF
-EF 30-35
-Continue p.o. Lasix, beta-misha, SGLT2i
-add lisinopril tw if BP and Cr stable
-Cardiology following
- trend daily weights, I's&O's, renal function
Sepsis secondary to osteomyelitis
-Resolved, source controlled as BKA performed 02/21
-Left heel bone biopsy MSSA
COPD acute on chronic along with ERICK and pulmonary hypertension
-BiPAP at bedtime
-Maintain SpO2 between 88 and 92%
-Incentive spirometer
Normocytic anemia
- stable
- monitor for bleeds
- transfuse Hb<7
Diarrhea
-C diff, norovirus negative
Permanent atrial fibrillation
-Continue beta-mihsa and Eliquis
-Monitor on telemetry
Diabetes
-Continue long and short acting insulin
-Accu-Cheks
Delirium
- delirium precautions - reorientation, lights on during day and off at night
- ativan last given 02/22
Diet: 4g sodium
DVT prophylaxis: eliquis
CODE STATUS: DNR
Anticipated Discharge: 24 - 48 hours
Subjective/Interval History
-
Date of Service: February 27, 2024
Mr. Shar Wiggins is a 73yo pmh HFrEF (EF 30-35%), CKD stage 3b, IDDM, PAD, permanent afib, pulm htn, COPD admitted for an infected L foot plantar ulcer. Slept well overnight. No loose stools overnight. No agitation, just confusion.
Objective Data
-
Labs:
Laboratory Results
02/27/24
03:53
WBC 7.7
Hgb 7.3 L
Hct 24.0 L
Plt Count 233
Sodium 136
Potassium 4.2
Chloride 98
Carbon Dioxide 32 H
BUN 40 H
Creatinine 1.3
Glucose 118 H
Calcium 7.7 L
Vital Signs:
Vital Signs
Temp Pulse Resp BP Pulse Ox
97.5 F 64 16 123/66 100
02/27/24 02:57 02/27/24 06:00 02/27/24 06:00 02/27/24 06:00 02/27/24 06:00
I&O
02/26/24 02/27/24 02/28/24
06:59 06:59 06:59
Intake Total 480 / 480 540 / 540
Balance 480 / 480 540 / 540
Review of Systems
-
History Source: Patient
Constitutional: Reports No Symptoms
EENT: Reports No Symptoms Reported
Respiratory: Reports No Symptoms
Cardiac: Reports No Symptoms
Abdomen/GI: Reports No Symptoms
Musculoskeletal: Reports No Symptoms
Skin: Reports No Symptoms
Neuro: Reports No Symptoms
Physical Exam
-
General: Well Developed, Well Nourished and Comfortable
HEENT: Normocephalic, Atraumatic, Moist Mucous Membranes, Anicteric and Oxygen (6L O2 midflow)
Respiratory: Wheezes and Crackles
Cardiac: S1/S2 and Irregular Rhythm; Negative Murmur, Rub or Gallop
GI: Soft, Nontender, Nondistended and Other (hypoactive bowel sounds)
Musculoskeletal: No Clubbing, No Cyanosis and No Edema
Skin: Warm and Dry
--- NOTE | 2024-02-27 07:35 | PN.DE.MGMTRT ---
Insulin Management
- -
02/27/2024: Diabetes management Follow up:
73 years old male with multiple comorbidities admitted to the hospital on 01/27 with sepsis due to left foot plantar infected ulcer 2/2 diabetic foot ulcer and peripheral vascular disease S/P left heal debridement. Diabetes consult requested on 02/04
for Hyperglycemia.
PMH: HTN, HLD, CAD, PVD, CHF, COPD and T2DM. Was taking Jardiance 10mg daily, Tresiba 45 units daily, metformin 1000mg BID and NovoLog 7-20 units AC. A1C 6.4%.
02/26 POD 5 s/p amputation L lower leg. Glucose has trended 75 to 176 yesterday. Received HS lantus to 22 units fasting this AM 118. Will continue lantus 22 units @ hs. Patient did not receive insulin at breakfast or dinner, did receive lunch
dose. Will reduce AC novolog 7 units with low corrective insulin
Will follow.
Diabetes History
- -
Type of Diabetes: 2 requiring insulin
Pre-Admission Diabetes Regimen
02/27/24
03:53
Creatinine 1.3
Lab Results
Hemoglobin A1c 6.4 % (4.0-5.6) H 01/29/24 07:22
Insulin Pump Settings
IP Diabetes Regimen
02/22/24 02/26/24 02/26/24
21:13 07:59 12:07
Glucose
POC Glucose 388 H 75 170 H
02/26/24 02/26/24 02/27/24
16:39 19:43 03:53
Glucose 118 H
POC Glucose 138 H 176 H
Meal type: Breakfast
Amount consumed: 75%
Patient Education
[2024-02-27] MEDS: NOVOLOG FLEXPEN SC (08:52)
--- NOTE | 2024-02-27 09:02 | PTCARENOTE ---
Patient received from night auditor. Patient resting comfortably in bed. Patients mentation much improved since yesterday, will trial off Mitts today. No events noted overnight. No complaints of pain at this time, more so non-verbal cues. Patient
was on BiPAP HS, now on 5L midflow N/C, will attempt to wean as tolerated. Wound care done overnight, to be assessed and dressed as needed. No tests scheduled at this time. Call castellon in reach.
--- NOTE | 2024-02-27 09:18 | W.PN.CD ---
Today's Communication / Plan
-
cont. current meds
add back lisinopril tomorrow if BP room and Cr stable
Impression / Plan
-
Impression/Plan: 73 y/o male (known to Dr. Alvarez, his primary District Manager) with HTN, HLD, IDDM, COPD, permanent atrial fibrillation (on apixaban), CAD with ICMO, PAD with prior LSFA endovascular intervention and obesity admitted with
non-healing left foot ulcer/wet gangrene complicated by sepsis, s/p left heal debridement which was complicated by VDRF and hypotension requiring pressor support, recovered, now s/p LBKA.
#HFrEF
#Ischemic cardiomyopathy
-Acute on chronic, resolved s/p IV lasix
-LVEF 35%.
-Continue Lasix 40 mg p.o. daily.
-continue SGLT2i, added back 02/25 (farxiga while here; takes jardiance at home)
-continue Toprol XL 50mg bid
-trend Cr: CKD3b may be new baseline
-assess to add back home lisinopril and aldactone based on Cr and BP trend; tomorrow add back lisinopril if Cr stable
#Permanent Atrial fibrillation
-Chronic.
-Rate control: metoprolol succinate 50 mg twice daily.
-CHADS2-Vasc = 4 (CHF, Age x2, Vascular Disease).
-Continue apixaban 5 mg twice daily
#Significant, complex lung disease
-Chronic.
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
-Significant CO2 retention.
-Pulmonology consulted and following.
#Left heal wet gangrene/septic shock/osteomyelitis
-Acute on chronic.
-Recovered from sepsis/shock.
-Now s/p LBKA via vascular surgery.
-ABX completed. ID signed off.
-Goal MAP > 65 mmHg.
#Anemia
-Chronic, downtrending.
-Clearly a component of AoCD.
-Low(er) threshold for transfusion. There may be a component of dilution.
-If the patient is transfused, give additional furosemide 40 mg IV to avoid TACO.
#Coronary artery disease
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
-Continue ASA/statin.
Subjective/Interval History:
Confused, wearing mitts.
DATA:
Echo, 02/05/2024:
CONCLUSIONS
Moderately reduced left ventricular systolic function.
Left ventricular ejection fraction is 35% by visual estimate.
Severe hypokinesis of the mid to distal anterior, anteroseptal and apical dahl
c/w a mid LAD infarct.
Severe left atrial enlargement.
No significant valvular disease.
No significant change since the prior study of 09/11/2023.
Cath, 09/13/2023:
1. Right dominant circulation with a 50% lesion in the distal third of the RPDA, a diffusely diseased, small first obtuse marginal, a 30% lesion in the mid ramus, a 40% lesion in the origin of the first diagonal and a chronic total occlusion of the
mid LAD (known since cardiac catheterization in 1999).
2. Normal filling pressures (LVEDP = 10 mmHg, PCWP = 13 mmHg at 105.7 kg).
3. Severely impaired cardiac function (cardiac index = 1.36 L/min/m�, a VO2 difference 8.63 volume percent).
4. Mild precapillary pulmonary hypertension (mean PA pressure = 23 mmHg, PVR = 3.44 Moser units).
5. Significantly elevated peripheral vascular resistance (1787 dynes*seconds*cm^5).
Physical Exam
Vital Signs/Labs
Vital Signs
Temp Pulse Resp BP Pulse Ox
36.7 C 64 16 123/66 100
02/27/24 07:30 02/27/24 06:00 02/27/24 06:00 02/27/24 06:00 02/27/24 06:00
02/26/24 02/27/24 02/28/24
06:59 06:59 06:59
Actual Weight 96 kg 95.2 kg
02/27/24 03:53
02/27/24 03:53
PT 18.0 Sec (11.4-14.6) H 02/23/24 04:10
INR 1.43 02/23/24 04:10
APTT 35.3 Sec (23.4-35.0) H 02/23/24 04:10
Magnesium 1.8 mg/dl (1.6-2.3) 02/13/24 03:09
Triglycerides 150 mg/dl (10-149) H 02/05/24 03:31
01/31/24 02/07/24 02/11/24
09:09 04:41 03:56
Qjy-K-Fjzwpkxdkoc Pept [id number] 6410 7400
02/20/24
05:24
Osl-I-Djoqvxsfvqy Pept 3940
Physical Exam
Constitutional: Confusion
Cardiovascular: Rhythm & rate is regular
Respiratory: Respiratory effort normal
Data Reviewed
-
Date of Service: February 27, 2024
Medical Decision Making: Reviewed Test Results
Labs: Labs Reviewed by me
[2024-02-27] MEDS: FARXIGA 10 MG PO (10:25)
[2024-02-27] MEDS: LOW STRENGTH ASPIRIN 81 MG TUBE (10:25)
[2024-02-27] MEDS: ELIQUIS 5 MG PO ×2 (10:25→20:38)
[2024-02-27] MEDS: LASIX 40 MG PO (10:25)
[2024-02-27] MEDS: RISPERDAL M-TAB (ORALLY DISINTEGRATING) 0.5 MG PO ×2 (10:26→14:10)
[2024-02-27] MEDS: TOPROL XL 50 MG PO ×2 (10:26→20:38)
[2024-02-27] MEDS: DESENEX/MITRAZOL/ZEASORB 1 APPLIC TOPICAL ×2 (10:27→20:54)
[2024-02-27] MEDS: NOVOLOG FLEXPEN-LOW RESISTANCE SC ×3 (10:27→18:28)
[2024-02-27] MEDS: NOVOLOG FLEXPEN 7 UNITS SC ×3 (10:27→18:28)
[2024-02-27 10:35] LABS: Glucose - Point of Care 107 mg/dl (70-99)
--- NOTE | 2024-02-27 11:28 | CM ---
Patient who is s/p Left below the knee amputation 02/21. O2 5L 02/25 20:00. BiPAP. Wound care per nurse. Medsitter. Mitts off per nurse. PT/OT recommend skilled rehab.
Spoke with [facility]; they are still following this patient and can review for acceptance when he is medically ready. The belting inspector does not need to eval him. The patient needs to be out of restraints and off Medsitter for 24 hours.
[facility] referral placed.
Spoke with patient's Lalitha; she is on her way to the hospital. She is receptive to her going to [facility].
Plan [facility] acute [facility] if patient improves vs preferred SNF.
--- NOTE | 2024-02-27 11:32 | W.PN.UPDATE ---
Update Note
Progress Note Update
Pt seen/ chart reviewed/ discussed with nursing staff- 20 minutes spent
Pt was started on low dose Risperdal several days ago for tx of agitation and confusion associated with delirium.
Today he is no longer in soft restraints, is calm, and cooperative with interview. He is ox 3 and can tell me his name, , location, day and year.
He is not happy about having had the amputation of lower left leg, but accepts it.
However he then said to me : 'Do you want the truth or the b.s.?' 'None of this is real, none of it.' He said that he is not sure if he is being taken care of or if people are harming him. Denies hearing voices, denies seeing things. Said he
wanted to be with his real family. I asked if the family he knows are real or impostors, and he said he wasn't sure. His MSE may worsen as the day progresses.
Notable lab- Pt's Hgb has been steadily dropping, is now 7.2- perhaps this is adding to his confusion?
A/P- Delirium secondary to multiple medical problems, long hospitalization, ICU-
Continue Risperdal as currently ordered.
[2024-02-27 13:25] LABS: Glucose - Point of Care 124 mg/dl (70-99)
[2024-02-27] MEDS: MORPHINE SULFATE 1 MG IV ×2 (14:10→18:27)
[2024-02-27 18:25] LABS: Glucose - Point of Care 137 mg/dl (70-99)
[2024-02-27] MEDS: MELATONIN 5 MG PO (20:38)
[2024-02-27] MEDS: PEPCID 20 MG PO (20:38)
[2024-02-27] MEDS: RISPERDAL M-TAB (ORALLY DISINTEGRATING) 1 MG PO (20:38)
[2024-02-27] MEDS: LANTUS 0.22 UNITS SC (20:41)
[2024-02-27 20:52] LABS: Glucose - Point of Care 182 mg/dl (70-99)
[2024-02-28] VITALS (15 sets, daily range): BP systolic 79–126; BP diastolic 55–91; PULSE 2–98; BMI 34.6
[2024-02-28] MEDS: RISPERDAL M-TAB (ORALLY DISINTEGRATING) 0.5 MG PO ×4 (00:49→20:26)
[2024-02-28] MEDS: MORPHINE SULFATE 2 MG IV ×2 (00:49→17:08)
--- NOTE | 2024-02-28 01:21 | PTCARENOTE ---
Patient agitated and says that he wants to leave the hospital. Frequently attempting to get OOB and rip off heart monitor and pulsox. Urinating in paper cups on side table. Patient asked if this nurse was 'here to take over the world.' Emotional
support and reorientation provided without result. Medsitter in place.
[2024-02-28 03:44] LABS: Hematocrit 24.4 % (39.0-52.0); Hemoglobin 7.6 g/dL (13.0-18.0); Mean Corp Hgb Conc. 31.1 g/dL (33.0-37.0); Mean Corpuscular Volume 83.6 fL (80.0-94.0); Mean Platelet Volume 10.8 fL (7.4-10.4); Platelet Count 248 10^3/uL (130-400); Red Blood Cell Count 2.92 10^6/uL (4.70-6.10); Red Cell Dist. Width 21.8 % (11.5-14.5); White Blood Cell Count 8.1 10^3/uL (4.8-10.8)
--- NOTE | 2024-02-28 04:16 | PTCARENOTE ---
Patient agitated, ripping off oxygen, and cursing at staff. Mitts replaced. Continuously screaming.
[2024-02-28 04:18] LABS: Blood Urea Nitrogen 35 mg/dl (9-20); Calcium 7.4 mg/dl (8.4-10.2); Carbon Dioxide 32 mmol/L (22-30); Chloride 92 mmol/L (98-107); Estimated Creatinine Clearance 63 ml/min; Glucose 183 mg/dl (70-99); Potassium 4.6 mmol/L (3.5-5.1); Sodium 131 mmol/L (135-145); eGFR > 60.00
--- NOTE | 2024-02-28 07:29 | W.PN.HOSP.TC ---
Today's Communication/Plan
-
.
Assessment / Plan
Assessment / Plan
Mr. Shar Wiggins is a 73yo pmh HFrEF (EF 30-35%), CKD stage 3b, IDDM, PAD, permanent afib, pulm htn, COPD admitted for an infected L foot plantar ulcer.
Acute on chronic HFrEF
-EF 30-35
-Continue p.o. Lasix, beta-misha, SGLT2i
-add lisinopril tw if BP and Cr stable
-Cardiology following
- trend daily weights, I's&O's, renal function
Anemia
- likely iron deficiency component
- replete oral iron
Sepsis secondary to osteomyelitis
-Resolved, source controlled as BKA performed 02/21
COPD acute on chronic along with ERICK and pulmonary hypertension
-BiPAP at bedtime
-Maintain SpO2 between 88 and 92%
-Incentive spirometer
Normocytic anemia
- stable
- monitor for bleeds
- transfuse Hb<7
Diarrhea
-C diff, norovirus negative
Permanent atrial fibrillation
-Continue beta-misha and Eliquis
-Monitor on telemetry
Diabetes
-Continue long and short acting insulin
-Accu-Cheks
Delirium
- delirium precautions - reorientation, lights on during day and off at night
- ativan last given 02/22
- avoid sedatives, restraints
Diet: 4g sodium
DVT prophylaxis: eliquis
CODE STATUS: DNR
Anticipated Discharge: 24 - 48 hours
Subjective/Interval History
-
Date of Service: February 28, 2024
Mr. Shar Wiggins is a 73yo pmh HFrEF (EF 30-35%), CKD stage 3b, IDDM, PAD, permanent afib, pulm htn, COPD admitted for an infected L foot plantar ulcer. Pt is confused this morning. He does not 'care what today is.'
Objective Data
-
Labs:
Laboratory Results
02/28/24
03:29
WBC 8.1
Hgb 7.6 L
Hct 24.4 L
Plt Count 248
Sodium 131 L
Potassium 4.6
Chloride 92 L
Carbon Dioxide 32 H
BUN 35 H
Creatinine 1.1
Glucose 183 H
Calcium 7.4 L
Vital Signs:
Vital Signs
Temp Pulse Resp BP Pulse Ox
97.2 F 89 25 103/91 91
02/28/24 06:10 02/28/24 04:00 02/28/24 04:00 02/28/24 04:00 02/28/24 04:00
I&O
02/27/24 02/28/24 02/29/24
06:59 06:59 06:59
Intake Total 540 / 540 2140 / 2140
Output Total 1700 / 1700
Balance 540 / 540 440 / 440
Review of Systems
-
History Source: Patient
Constitutional: Reports No Symptoms
EENT: Reports No Symptoms Reported
Respiratory: Reports No Symptoms
Cardiac: Reports No Symptoms
Abdomen/GI: Reports No Symptoms
Genitourinary: Reports No Symptoms
Musculoskeletal: Reports No Symptoms
Skin: Reports No Symptoms
Neuro: Reports No Symptoms
Physical Exam
-
General: Well Developed, Well Nourished and Obese
HEENT: Normocephalic, Atraumatic, Moist Mucous Membranes, Anicteric and Oxygen (5L O2 midflow)
Respiratory: Clear to Auscultation and Non Labored Respirations
Cardiac: S1/S2 and Irregular Rhythm
GI: Soft, Nontender, Nondistended and Normal Bowel Sounds
Musculoskeletal: No Clubbing, No Cyanosis and No Edema
Skin: Warm and Dry
Neuro: Awake
[2024-02-28] MEDS: ELIQUIS 5 MG PO ×2 (08:56→20:24)
[2024-02-28] MEDS: TOPROL XL 50 MG PO ×2 (08:56→20:24)
[2024-02-28] MEDS: LASIX 40 MG PO (08:56)
[2024-02-28] MEDS: FARXIGA 10 MG PO (08:56)
[2024-02-28] MEDS: LOW STRENGTH ASPIRIN 81 MG TUBE (08:56)
[2024-02-28] MEDS: DESENEX/MITRAZOL/ZEASORB 1 APPLIC TOPICAL ×2 (08:57→20:24)
[2024-02-28 09:01] LABS: Glucose - Point of Care 208 mg/dl (70-99)
--- NOTE | 2024-02-28 09:07 | PTCARENOTE ---
assumed care at 0700 . patient in bed. bed seater in place for pt's safety. bed alarm activated Mitts to b/L UE
patient awake and alert to place and person . restless and forgetful
SR 88. BP via Rt upper ar 103/69 MAP 89 RR 26 93 % 6L via mid flow
Abdomen round soft
Rt left pedal pulses left left dressing
[2024-02-28] MEDS: TYLENOL 650 MG PO (09:19)
[2024-02-28] MEDS: NOVOLOG FLEXPEN 7 UNITS SC ×3 (09:28→17:10)
[2024-02-28] MEDS: NOVOLOG FLEXPEN-LOW RESISTANCE 2 UNITS SC (09:29)
[2024-02-28 09:37] LABS: Iron 36 ug/dl (49-181)
[2024-02-28 09:46] LABS: Percent Saturation 15 % (20-50); Total Iron Binding Capacity 239 ug/dl (261-462)
[2024-02-28 10:48] LABS: Folate 16.3 ng/ml (2.76-20); Vitamin B12 365 pg/ml (239-931)
--- NOTE | 2024-02-28 11:35 | W.PN.UPDATE ---
Update Note
Progress Note Update
Met with patient and , who was visiting.
Pt clearer today and his memory is improving. He made some jokes, and was involved in repartee with . She said she sees him as improving too.
He did not repeat to me his statement yesterday of thinking things are not real. No aud hallucinations or paranoia. Knows today is Kalpesh.
Would keep him on Risperdal for now- we will continue to assess.
[2024-02-28] MEDS: FEOSOL 325 MG PO (12:33)
[2024-02-28 12:34] LABS: Glucose - Point of Care 156 mg/dl (70-99)
[2024-02-28] MEDS: NOVOLOG FLEXPEN-LOW RESISTANCE 1 UNITS SC (12:34)
--- NOTE | 2024-02-28 13:30 | PTCARENOTE ---
Addendum entered by Karrie Solo RN 02/28/24 15:09:
Pt did not have BL restraints on when I assumed care of patient.
Original Note:
Assumed care of pt at aprox 1100. Pt heard from desk calling out for help. Pt restless and wanted to sit on edge of bed. Pts came in and has been calm ever since. Pt ate lunch. Denies any pain at this time. Vitals stable. Pt does take O2 off
sometimes. Bed alarm and med sitter in place for safety.
--- NOTE | 2024-02-28 14:47 | PTCARENOTE ---
Pts left and he rang to be changed. Pt turned, cleaned and repositioned. Pt given 1400 Risperdal at this time. Currently 99 on 6L.
[2024-02-28 15:15] LABS: Venous Blood Gas B.E. 8.4 mmol/L (-4 to +4); Venous Blood Gas HCO3 31.8 mmol/L (22-27); Venous Blood Gas O2 Sat % 99.8 %; Venous Blood Gas pCO2 38 mmHg (35-48); Venous Blood Gas pH 7.53 (7.32-7.43); Venous Blood Gas pO2 160 mmHg (30-50)
[2024-02-28 16:14] LABS: Glucose - Point of Care 106 mg/dl (70-99)
[2024-02-28] MEDS: NOVOLOG FLEXPEN-LOW RESISTANCE SC (17:04)
--- NOTE | 2024-02-28 21:16 | PTCARENOTE ---
Pt calling out again and trying to pull leads and pulse ox off. Pt trying to swing legs out of bed. Reoriented to time and place. Pt very agitated. PRN PO Risperdal given. Medsitter and bed alarm remain place.
[2024-02-28 21:34] LABS: Glucose - Point of Care 173 mg/dl (70-99)
[2024-02-28] MEDS: LANTUS 0.22 UNITS SC (21:40)
[2024-02-28] MEDS: PEPCID 20 MG PO (21:41)
[2024-02-28] MEDS: MELATONIN 5 MG PO (21:41)
[2024-02-28] MEDS: RISPERDAL M-TAB (ORALLY DISINTEGRATING) 1 MG PO (22:38)
[2024-02-29] VITALS (23 sets, daily range): BP systolic 80–121; BP diastolic 41–95; PULSE 2–80; O2SAT 95–96
[2024-02-29] MEDS: MORPHINE SULFATE 1 MG IV (03:23)
[2024-02-29 04:25] LABS: Venous Blood Gas B.E. 7.3 mmol/L (-4 to +4); Venous Blood Gas O2 Sat % 87.6 %; Venous Blood Gas pCO2 52 mmHg (35-48); Venous Blood Gas pH 7.41 (7.32-7.43); Venous Blood Gas pO2 56 mmHg (30-50)
--- NOTE | 2024-02-29 04:27 | PTCARENOTE ---
Rec'd pt from previous RN. Pt agitated, frequently calling out for help, but unable to specify what he needs. Water provided, hygiene care performed. Pt repositioned frequently. B/l mitts in place. Medsitter in place for pt safety. Bed alarm in
place for pt safety. PRN morphine given for moderate pain, see MAR.
[2024-02-29 05:00] LABS: Hematocrit 28.3 % (39.0-52.0); Hemoglobin 8.4 g/dL (13.0-18.0); Mean Corp Hgb Conc. 29.7 g/dL (33.0-37.0); Mean Corpuscular Hgb 25.3 pg (27.0-31.0); Mean Corpuscular Volume 85.2 fL (80.0-94.0); Mean Platelet Volume 10.6 fL (7.4-10.4); Platelet Count 281 10^3/uL (130-400); Red Blood Cell Count 3.32 10^6/uL (4.70-6.10); Red Cell Dist. Width 21.8 % (11.5-14.5); White Blood Cell Count 8.3 10^3/uL (4.8-10.8)
[2024-02-29 05:29] LABS: Blood Urea Nitrogen 30 mg/dl (9-20); Carbon Dioxide 32 mmol/L (22-30); Chloride 93 mmol/L (98-107); Estimated Creatinine Clearance 63 ml/min; Glucose 152 mg/dl (70-99); Potassium 4.4 mmol/L (3.5-5.1); Sodium 133 mmol/L (135-145); eGFR > 60.00
[2024-02-29 07:25] LABS: Glucose - Point of Care 132 mg/dl (70-99)
[2024-02-29] MEDS: NOVOLOG FLEXPEN-LOW RESISTANCE SC ×2 (07:31→11:56)
--- NOTE | 2024-02-29 07:33 | W.PN.HOSP.TC ---
Today's Communication/Plan
-
If pt becomes agitated or confused, please place him on BiPAP for a couple of hours
Assessment / Plan
Assessment / Plan
Mr. Shar Wiggins is a 73yo pmh HFrEF (EF 30-35%), CKD stage 3b, IDDM, PAD, permanent afib, pulm htn, COPD admitted for an infected L foot plantar ulcer.
Acute on chronic HFrEF
-EF 30-35
-Continue p.o. Lasix, beta-misha, SGLT2i, lisinopril
-Cardiology following
- trend daily weights, I's&O's, renal function
Anemia
- likely iron deficiency component
- replete oral iron
Sepsis secondary to osteomyelitis
-Resolved, source controlled as BKA performed 02/21
COPD acute on chronic along with ERICK and pulmonary hypertension
-BiPAP at bedtime, 1-on-1 for bedtime
-Maintain SpO2 between 88 and 92%
-Incentive spirometer
Normocytic anemia
- stable
- monitor for bleeds
- transfuse Hb<7
Permanent atrial fibrillation
-Continue beta-misha and Eliquis
-Monitor on telemetry
Diabetes
-Continue long and short acting insulin
-Accu-Cheks
Delirium
- delirium precautions - reorientation, lights on during day and off at night
- ativan last given 02/22
- avoid sedatives, restraints
- if he is agitated, place on BiPAP
Diet: 4g sodium
DVT prophylaxis: eliquis
CODE STATUS: DNR
Anticipated Discharge: 24 - 48 hours
Subjective/Interval History
-
Date of Service: February 29, 2024
Mr. Shar Wiggins is a 73yo pmh HFrEF (EF 30-35%), CKD stage 3b, IDDM, PAD, permanent afib, pulm htn, COPD admitted for an infected L foot plantar ulcer. Pt continues pulling at lines, monitors, and BiPAP overnight, so had to be restrained in
mitts with a one-to-one. Feels his BiPAP inspiratory pressure is too high.
Objective Data
-
Labs:
Laboratory Results
02/29/24
04:16
WBC 8.3
Hgb 8.4 L
Hct 28.3 L
Plt Count 281
Sodium 133 L
Potassium 4.4
Chloride 93 L
Carbon Dioxide 32 H
BUN 30 H
Creatinine 1.1
Glucose 152 H
Calcium 8.0 L
Vital Signs:
Vital Signs
Temp Pulse Resp BP Pulse Ox
98 F 88 24 96/73 83
02/29/24 03:02 02/29/24 04:00 02/29/24 04:00 02/29/24 06:00 02/29/24 04:00
I&O
02/28/24 02/29/24 03/01/24
06:59 06:59 06:59
Intake Total 2140 / 2140 240 / 240
Output Total 1700 / 1700 500 / 500
Balance 440 / 440 -260 / -260
Review of Systems
-
History Source: Patient
Constitutional: Reports No Symptoms
EENT: Reports No Symptoms Reported
Respiratory: Reports No Symptoms
Cardiac: Reports No Symptoms
Abdomen/GI: Reports No Symptoms
Musculoskeletal: Reports No Symptoms
Skin: Reports No Symptoms
Neuro: Reports No Symptoms
Physical Exam
-
General: Well Developed, Well Nourished and Obese
HEENT: Normocephalic, Atraumatic, Moist Mucous Membranes, Anicteric and Oxygen (4L O2 midflow)
Respiratory: Wheezes and Non Labored Respirations
Cardiac: S1/S2 and Irregular Rhythm
GI: Soft, Nontender, Nondistended and Normal Bowel Sounds
Musculoskeletal: No Clubbing, No Cyanosis, No Edema and Other (L BKA)
Skin: Warm and Dry
Neuro: Awake
Psych: Confused
[2024-02-29] MEDS: FARXIGA 10 MG PO (08:03)
[2024-02-29] MEDS: ELIQUIS 5 MG PO ×2 (08:03→20:17)
[2024-02-29] MEDS: FEOSOL 325 MG PO (08:03)
[2024-02-29] MEDS: ZESTRIL 2.5 MG PO (08:03)
[2024-02-29] MEDS: LOW STRENGTH ASPIRIN 81 MG TUBE (08:03)
[2024-02-29] MEDS: TOPROL XL 50 MG PO (08:04)
[2024-02-29] MEDS: LASIX 40 MG PO (08:04)
[2024-02-29] MEDS: DESENEX/MITRAZOL/ZEASORB 1 APPLIC TOPICAL ×2 (08:04→20:24)
[2024-02-29] MEDS: NOVOLOG FLEXPEN 7 UNITS SC ×3 (08:05→17:52)
[2024-02-29] MEDS: RISPERDAL M-TAB (ORALLY DISINTEGRATING) 0.5 MG PO ×2 (08:05→15:07)
--- NOTE | 2024-02-29 09:15 | W.PN.CD ---
Today's Communication / Plan
-
stable from cardiac perspective
continue current cardiac medical regimen, highlighted below
please call us back with additional questions
Impression / Plan
-
Impression/Plan: 73 y/o male (known to Dr. Alvarez, his primary Tobacco Prizer) with HTN, HLD, IDDM, COPD, permanent atrial fibrillation (on apixaban), CAD with ICMO, PAD with prior [facility] endovascular intervention and obesity admitted with
non-healing left foot ulcer/wet gangrene complicated by sepsis, s/p left heal debridement which was complicated by VDRF and hypotension requiring pressor support, recovered, now s/p LBKA.
#HFrEF
#Ischemic cardiomyopathy
-Acute on chronic, resolved s/p IV lasix
-LVEF 35%.
-Continue Lasix 40 mg p.o. daily.
-continue SGLT2i, added back 02/25 (blaire while here; takes jardiance at home)
-continue Toprol XL 50mg bid
-now back on lisinopril 2.5 mg daily
#Permanent Atrial fibrillation
-Chronic.
-Rate control: metoprolol succinate 50 mg twice daily.
-CHADS2-Vasc = 4 (CHF, Age x2, Vascular Disease).
-Continue apixaban 5 mg twice daily
#Significant, complex lung disease
-Chronic.
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
-Significant CO2 retention.
-Pulmonology consulted and following.
#Left heal wet gangrene/septic shock/osteomyelitis
-Acute on chronic.
-Recovered from sepsis/shock.
-Now s/p LBKA via vascular surgery.
-ABX completed. ID signed off.
-Goal MAP > 65 mmHg.
#Anemia
-Chronic, downtrending.
-Clearly a component of AoCD.
-Low(er) threshold for transfusion. There may be a component of dilution.
-If the patient is transfused, give additional furosemide 40 mg IV to avoid TACO.
#Coronary artery disease
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
-Continue ASA/statin.
Subjective/Interval History:
Denies CP/SOB.
DATA:
Echo, 02/05/2024:
CONCLUSIONS
Moderately reduced left ventricular systolic function.
Left ventricular ejection fraction is 35% by visual estimate.
Severe hypokinesis of the mid to distal anterior, anteroseptal and apical dahl
c/w a mid LAD infarct.
Severe left atrial enlargement.
No significant valvular disease.
No significant change since the prior study of 09/11/2023.
Cath, 09/13/2023:
1. Right dominant circulation with a 50% lesion in the distal third of the RPDA, a diffusely diseased, small first obtuse marginal, a 30% lesion in the mid ramus, a 40% lesion in the origin of the first diagonal and a chronic total occlusion of the
mid LAD (known since cardiac catheterization in 1999).
2. Normal filling pressures (LVEDP = 10 mmHg, PCWP = 13 mmHg at 105.7 kg).
3. Severely impaired cardiac function (cardiac index = 1.36 L/min/m�, a VO2 difference 8.63 volume percent).
4. Mild precapillary pulmonary hypertension (mean PA pressure = 23 mmHg, PVR = 3.44 Moser units).
5. Significantly elevated peripheral vascular resistance (1787 dynes*seconds*cm^5).
Physical Exam
Vital Signs/Labs
Vital Signs
Temp Pulse Resp BP Pulse Ox
98 F 80 22 107/67 94
02/29/24 03:02 02/29/24 08:04 02/29/24 08:30 02/29/24 08:04 02/29/24 08:30
02/28/24 02/29/24 03/01/24
06:59 06:59 06:59
Actual Weight 97.2 kg
02/29/24 04:16
02/29/24 04:16
PT 18.0 Sec (11.4-14.6) H 02/23/24 04:10
INR 1.43 02/23/24 04:10
APTT 35.3 Sec (23.4-35.0) H 02/23/24 04:10
Magnesium 1.8 mg/dl (1.6-2.3) 02/13/24 03:09
Triglycerides 150 mg/dl (10-149) H 02/05/24 03:31
01/31/24 02/07/24 02/11/24
09:09 04:41 03:56
Rhd-X-Dabuknusfas Pept 88966 6410 7400
02/20/24
05:24
Iax-U-Vxvdrjgoqxg Pept 3940
Physical Exam
Constitutional: No acute distress
EENT: Moist mucous membranes
Cardiovascular: JVD pressure is normal, Systolic murmur absent and Rhythm/rate is irregular
Respiratory: Respiratory effort normal and Lungs clear to auscul.
Neuro/Psych: Alert
Data Reviewed
-
Date of Service: February 29, 2024
EKG: Other (Tele: A fib 70s-80s)
Labs: Labs Reviewed by me
--- NOTE | 2024-02-29 10:50 | WOUNDNOTE ---
[facility] RN note: Patient's coccyx overall smaller, center coccyx with deep dermal stage 2 appearing pressure injury, pink with yellow fibrin. Dressing applied. Will request adding honey gel to wound care. L BKA incision approximated with bam
intact, small serous yellow drainage. Faint scattered bruises noted L BKA. L pre-tib bony prominence dull red and intact. Silicone border foam applied to L pre tib bony prominence for protection. L BKA dressing changed. Po intake poor as per
nursing. Encouraged patient to eat more and include protein for wound healing. Skin on R heel intact. Patient needs help with turning. Patient turned to R semi side lying position with help from JETHRO Mac. R heel off bed with TruVue Lite boot. Air
chair cushion placed under L BKA. Care plan to be updated. Will follow as needed.
[2024-02-29 12:06] LABS: Glucose - Point of Care 141 mg/dl (70-99)
--- NOTE | 2024-02-29 14:07 | W.PN.UPDATE ---
Update Note
Progress Note Update
patient seen chart reviewed. spoke with nursing. patient complained of a lot of pain in his back. texted dr maxwell to apprise. nursing tells me that he did not sleep at all last night. he was a bit drowsy this afternoon but was able to talk with me
about his pain. when i came back to the unit and looked in on him again he mentioned the pain again and had become somewhat agitated. he apparently gets agitated in the late afternoon and staff not sure if the risperdal is helping much at this
point (is this bc of pain??) . i considered using seroquel for agitation instead of riisperdal but qtc is high . noted hgb is low which could be contributing to encephalopathy. for now did not change risperdal as it was just increased recently.
increased melatonin to 10 mg to give at six as it may take more time to work and added trazodone 50 mg at hs for sleep. will follow
[2024-02-29 16:39] LABS: Glucose - Point of Care 214 mg/dl (70-99)
--- NOTE | 2024-02-29 16:52 | PTCARENOTE ---
Dr. Rowe made aware that patients BP is 116/49 with MAP of 64. BP reran appox 20 minutes later and it was 116/49 with MAP of 69. Patient asymptomatic. Care ongoing.
--- NOTE | 2024-02-29 16:55 | CM ---
Patient who is s/p Left below the knee amputation 02/21. O2 4L. BiPAP. Receiving IV MS prn. Seen by wound care nurse. David. Hand Mitts per nurse. PT/OT recommend acute rehab vs skilled rehab. Seen by Psych- meds adjusted for agitation
& sleep.
Spoke with [facility]; they are continuing to follow this patient.
Plan [facility] rehab if patient improves vs preferred SNF.
[2024-02-29] MEDS: NOVOLOG FLEXPEN-LOW RESISTANCE 2 UNITS SC (17:52)
[2024-02-29] MEDS: MELATONIN 10 MG PO (17:52)
--- NOTE | 2024-02-29 18:42 | PTCARENOTE ---
Patient alert and oriented to self. Patient is confused to place and time. Patient is confused, restless, forgetful, agitated, and anxious. Bed alarm on and audible. Emotional support provided to patient throughout shift. Patients family at bedside
throughout shift. B/L hand mitts in place and med sitter in place. Patient on 4L midflow. A fib on the monitor. Patient with periods of incontinence to urine. Call castellon within reach, bed in lowest position, and bed wheels locked.
[2024-02-29] MEDS: TYLENOL 650 MG PO (19:02)
[2024-02-29] MEDS: PEPCID 20 MG PO (20:17)
[2024-02-29] MEDS: RISPERDAL M-TAB (ORALLY DISINTEGRATING) 1 MG PO (20:18)
[2024-02-29] MEDS: TOPROL XL PO (20:24)
[2024-02-29] MEDS: DESYREL 50 MG PO (20:27)
[2024-02-29 21:19] LABS: Glucose - Point of Care 221 mg/dl (70-99)
[2024-02-29] MEDS: LANTUS 0.22 UNITS SC (22:30)
[2024-03-01] VITALS (15 sets, daily range): BP systolic 86–141; BP diastolic 38–105; PULSE 2–78; BMI 34.4
--- NOTE | 2024-03-01 03:19 | PTCARENOTE ---
Assessed. Pt has 1:1 at the bedside and medsitter in place. Pt is confused to place and time. PERRJACKIE 3. Pt had gotten increasingly confused at the beginning of the shift and became combative, throwing objects and attempting to exit bed. Pt insisting
he wanted to go outside to drink a cup of coffee. Mitts placed for safety. Pt moving extremities. L BKA dsg CDI. Afib on monitor. (-) edema noted. (+) pulses palpated x 4 limbs. Pt placed on BiPAP HS. No s/s of distress assessed. Will continue to
monitor.
[2024-03-01 05:37] LABS: Venous Blood Gas B.E. 7.1 mmol/L (-4 to +4); Venous Blood Gas HCO3 32.8 mmol/L (22-27); Venous Blood Gas pCO2 53 mmHg (35-48); Venous Blood Gas pO2 143 mmHg (30-50)
[2024-03-01 05:38] LABS: Hemoglobin 7.8 g/dL (13.0-18.0); Mean Corpuscular Hgb 26.2 pg (27.0-31.0); Mean Corpuscular Volume 87.2 fL (80.0-94.0); Mean Platelet Volume 10.7 fL (7.4-10.4); Platelet Count 256 10^3/uL (130-400); Red Blood Cell Count 2.98 10^6/uL (4.70-6.10); Red Cell Dist. Width 21.9 % (11.5-14.5); White Blood Cell Count 8.3 10^3/uL (4.8-10.8)
[2024-03-01 05:52] LABS: Blood Urea Nitrogen 29 mg/dl (9-20); Calcium 7.7 mg/dl (8.4-10.2); Carbon Dioxide 34 mmol/L (22-30); Chloride 95 mmol/L (98-107); Estimated Creatinine Clearance 63 ml/min; Glucose 116 mg/dl (70-99); Potassium 4.1 mmol/L (3.5-5.1); Sodium 133 mmol/L (135-145); eGFR > 60.00
--- NOTE | 2024-03-01 07:23 | W.PN.HOSP.TC ---
Today's Communication/Plan
-
.
Assessment / Plan
Assessment / Plan
Mr. Shar Wiggins is a 73yo pmh HFrEF (EF 30-35%), CKD stage 3b, IDDM, PAD, permanent afib, pulm htn, COPD admitted for an infected L foot plantar ulcer.
Acute on chronic HFrEF
-EF 30-35
-Continue p.o. Lasix, beta-misha, SGLT2i, lisinopril
-Cardiology following
- trend daily weights, I's&O's, renal function
Anemia
- likely iron deficiency component
- replete oral iron
Sepsis secondary to osteomyelitis
-Resolved, source controlled as BKA performed 02/21
COPD acute on chronic along with ERICK and pulmonary hypertension
-BiPAP at bedtime, 1-on-1 for bedtime
-Maintain SpO2 between 88 and 92%
-Incentive spirometer
Normocytic anemia
- stable
- monitor for bleeds
- transfuse Hb<7
Permanent atrial fibrillation
-Continue beta-misha and Eliquis
-Monitor on telemetry
Diabetes
-Continue long and short acting insulin
-Accu-Cheks
Delirium
- delirium precautions - reorientation, lights on during day and off at night
- ativan last given 02/22
- trazodone, melatonin, risperdol
- avoid sedatives, restraints
- if he is agitated, place on BiPAP
Diet: 4g sodium
DVT prophylaxis: eliquis
CODE STATUS: DNR
Anticipated Discharge: 24 - 48 hours
Subjective/Interval History
-
Date of Service: March 01, 2024
Mr. Shar Wiggins is a 73yo pmh HFrEF (EF 30-35%), CKD stage 3b, IDDM, PAD, permanent afib, pulm htn, COPD admitted for an infected L foot plantar ulcer. He was agitated overnight, throwing objects at nurses. Compliant with BiPAP overnight. He is
also having b/l LBP. OMT was offered, but pt declined.
Objective Data
-
Labs:
Laboratory Results
03/01/24
05:23
WBC 8.3
Hgb 7.8 L
Hct 26.0 L
Plt Count 256
Sodium 133 L
Potassium 4.1
Chloride 95 L
Carbon Dioxide 34 H
BUN 29 H
Creatinine 1.1
Glucose 116 H
Calcium 7.7 L
Vital Signs:
Vital Signs
Temp Pulse Resp BP Pulse Ox
98.1 F 89 21 113/58 98
03/01/24 03:00 03/01/24 06:47 03/01/24 06:47 03/01/24 06:47 03/01/24 06:47
I&O
02/29/24 03/01/24 03/02/24
06:59 06:59 06:59
Intake Total 240 / 240 1080 / 1080
Output Total 500 / 500 1700 / 1700
Balance -260 / -260 -620 / -620
Review of Systems
-
History Source: Patient
Constitutional: Reports No Symptoms
EENT: Reports No Symptoms Reported
Respiratory: Reports No Symptoms
Cardiac: Reports No Symptoms
Abdomen/GI: Reports No Symptoms
Musculoskeletal: Reports Muscle Pain
Physical Exam
-
General: Well Developed, Well Nourished and Obese
HEENT: Normocephalic, Atraumatic, Anicteric and Oxygen (4L O2 midflow)
Respiratory: Clear to Auscultation
Cardiac: S1/S2 and Irregular Rhythm
GI: Soft, Nontender, Nondistended and Normal Bowel Sounds
Musculoskeletal: No Clubbing, No Cyanosis and No Edema
Skin: Warm and Dry
Neuro: Awake
Psych: Calm
--- NOTE | 2024-03-01 07:32 | PN.DE.MGMTRT ---
Insulin Management
- -
03/01/2024: Diabetes management Follow up:
73 years old male with multiple comorbidities admitted to the hospital on 01/27 with sepsis due to left foot plantar infected ulcer 2/2 diabetic foot ulcer and peripheral vascular disease S/P left heal debridement. Diabetes consult requested on 02/04
for Hyperglycemia.
PMH: HTN, HLD, CAD, PVD, CHF, COPD and T2DM. Was taking Jardiance 10mg daily, Tresiba 45 units daily, metformin 1000mg BID and NovoLog 7-20 units AC. A1C 6.4%.
03/01 POD 8 s/p amputation L lower leg. Glucose has trended 132 to 221 yesterday. Received HS lantus to 22 units fasting this AM 116. Will continue lantus 22 units @ hs.Pre meal glucose stable 132 - 141, will continue novolog 7 units AC with low
corrective. If patient does not eat please HOLD ac novolog but continue corrective insulin.
Will follow.
Diabetes History
- -
Type of Diabetes: 2 requiring insulin
Pre-Admission Diabetes Regimen
03/01/24
05:23
Creatinine 1.1
Lab Results
Hemoglobin A1c 6.4 % (4.0-5.6) H 01/29/24 07:22
Insulin Pump Settings
IP Diabetes Regimen
02/29/24 02/29/24 02/29/24
11:54 16:25 21:08
Glucose
POC Glucose 141 H 214 H 221 H
03/01/24
05:23
Glucose 116 H
POC Glucose
Meal type: Breakfast
Amount consumed: 25%
Patient Education
[2024-03-01 07:35] LABS: Glucose - Point of Care 110 mg/dl (70-99)
[2024-03-01] MEDS: NOVOLOG FLEXPEN 7 UNITS SC ×3 (09:06→18:27)
[2024-03-01] MEDS: DESENEX/MITRAZOL/ZEASORB 1 APPLIC TOPICAL ×2 (09:07→19:46)
[2024-03-01] MEDS: NOVOLOG FLEXPEN-LOW RESISTANCE SC ×3 (09:07→18:27)
[2024-03-01] MEDS: LOW STRENGTH ASPIRIN 81 MG TUBE (09:09)
[2024-03-01] MEDS: ELIQUIS 5 MG PO ×2 (09:10→19:46)
[2024-03-01] MEDS: FEOSOL 325 MG PO (09:11)
[2024-03-01] MEDS: FARXIGA 10 MG PO (09:11)
[2024-03-01] MEDS: ZESTRIL 2.5 MG PO (09:12)
[2024-03-01] MEDS: TOPROL XL 50 MG PO ×2 (09:12→19:45)
[2024-03-01] MEDS: LASIX 40 MG PO (09:13)
[2024-03-01] MEDS: RISPERDAL M-TAB (ORALLY DISINTEGRATING) 0.5 MG PO (09:54)
[2024-03-01 13:06] LABS: Glucose - Point of Care 103 mg/dl (70-99)
--- NOTE | 2024-03-01 13:43 | W.PN.UPDATE ---
Update Note
Progress Note Update
patient seen chart reviewed. discussed with nursing and pharmacy. at bedside. the patient has continued to have very difficult evenings and nights. he receive two prns yesterday or risperdal. he does quite well during the day but is agitated
and irritated at night. tells me that he has erratic sleeping habits in general. also says he has complained in the past of restless legs and possibly this is intensified with risperdal. patient explained to me that he goes to bed very
late and then sleeps for a few hours wakes eats breakfast and goes back to sleep for a few more hours. . ecg today does not show prolonged qtc so seroquel is a possibility if we follow ecg's. would stop daytime antipsychotic as the days are
generally good and nursing tells me patient sometimes is actually sleepy from the risperdal stop trazodone begin with 50 mg seroquel qhs and a prn of 25 mg q 6h and patient agreeable to make the changes. mr chau was very pleasant and
conversant
--- NOTE | 2024-03-01 14:24 | CM ---
Patient who is s/p Left below the knee amputation 02/21. O2 4L. BiPAP HS. Per nurse assessment; 1:1 last night with Medsitter for agitation. Confused, forgetful, restless, anxious, agitated at times today. Seen by wound care nurse. PT/OT
recommend acute rehab vs skilled rehab. Seen by Psych- meds adjusted for agitation & sleep.
Case discussed with [facility] Liaison Chong Trotter PT, Katrina OT; [facility] unable to accept due to ongoing issues with mentation, all recommending SNF.
Met with patient and Lalitha; explained patient not going to be accepted by [facility] for acute rehab and that SNF is more favorable option at this time - patient and understood and agreed. Discussed SNF preferences [facility]. Answered 's questions about Medicare & insurance coverage at SNF. Explained to that patient would still be eligible to follow up with [facility] an an outpatient for possible prosthesis, once MD decides.
Spoke with [facility]; they have no available bed till after New Years, and patient would need to provide his own BiPAP.
Spoke with [facility]; they may be able to accept him when medically ready ready. She will inquire if their DME supplier can set up BiPAP for him. Last BiPAP notes 02/28 from RT updated in [facility].
Messages with Dr Alicea, Resident Dinorah Rowe and nurse Jonas; will need to be calm, cooperative and off Medsitter for 24 hrs in order for SNF to accept. [facility] is considering him.
Plan follow up with [facility] for acceptance.
[2024-03-01] MEDS: MELATONIN 10 MG PO (18:27)
[2024-03-01 18:38] LABS: Glucose - Point of Care 85 mg/dl (70-99)
--- NOTE | 2024-03-01 18:39 | PTCARENOTE ---
Pt received in bed @ 0700. Oriented to self. Pt is confused and knows that he is confused. Stating, 'Man I have been out of it for the past month. I have no idea what is going on right now.' Does not recall the events of the past night. Restless. Pt
able to remain still with family at bedside. Transferred over to 4L NC during the day. SaO2 observed 88-95%. A Fib on gas appliance servicer helper. Tolerating PO intake. Sometimes continent of urine in urinal. Pt transferred OOB to chair with nisha lift.
Remains in chair for 3 hours. Wound care completed.
[2024-03-01] MEDS: PEPCID 20 MG PO (19:45)
[2024-03-01] MEDS: SEROQUEL 25 MG PO ×2 (19:45→23:45)
[2024-03-01] MEDS: LANTUS 0.22 UNITS SC (20:58)
[2024-03-01] MEDS: SEROQUEL 50 MG PO (20:58)
[2024-03-01 21:09] LABS: Glucose - Point of Care 155 mg/dl (70-99)
--- NOTE | 2024-03-01 23:57 | PTCARENOTE ---
Addendum entered by Christos De Leon RN 03/02/24 00:20:
pt has been flailing in bed and kicking bed/ knocked his Left BKA dsg off- stump redressed- waiting for Seroquel to start working
Original Note:
pt has been 1-1 since 1844 becoming increasing confused and agitated/combative/uncooperative. Seroquel given per orders- - bipap was placed around 2200 and pt became even more agitated requiring two pct's to hold each arm in order to maintain bipap
which has been made clear is very important for him to keep bipap on due to hypercapnia/TME. purchasing intern gave one time order for sequel and wrist restraint because mitts were ineffective the night before. purchasing intern ordered softlimb and additional dose of Seroquel
with idea to reevaluate need for restraints in two hours.
[2024-03-02] VITALS (16 sets, daily range): BP systolic 90–149; BP diastolic 48–137; PULSE 2; BMI 33.7
--- NOTE | 2024-03-02 01:31 | W.PN.UPDATE ---
Update Note
Progress Note Update
RN notified STROKE COORDINATOR, patient combative and not keeping the Bipap on. Patient swinging, cursing at the 1:1 staff, requesting 1:1 restraints for protective intervention and attempting to remove tube. Patient seen and evaluated. restless and continuously
trying to take off the Bipap and when staff intervenes to stop he curses and swings at the staff. Two staff in bedroom at present.
Per attending notes it is important to have Bipap on night due to hypercapnia, Will order 25mg Seroquel now, will place restraints now, Plan is to evaluate patient in two hours
n two hours for the need of restraints.
2 hours later RN updated patient is more calmer now, and restraints are off. Will D/C restraints. Bipap maintained at present
[2024-03-02] MEDS: SEROQUEL 25 MG PO (01:52)
--- NOTE | 2024-03-02 02:33 | PTCARENOTE ---
pt calmer and better able to follow instructions- soft limb restraints taken off- biap remains with 1-1
[2024-03-02 04:34] LABS: Venous Blood Gas B.E. 10.3 mmol/L (-4 to +4); Venous Blood Gas HCO3 34.3 mmol/L (22-27); Venous Blood Gas O2 Sat % 99.5 %; Venous Blood Gas pCO2 43 mmHg (35-48); Venous Blood Gas pH 7.51 (7.32-7.43); Venous Blood Gas pO2 184 mmHg (30-50)
[2024-03-02 04:35] LABS: Venous Blood Gas O2 Therapy 70s
[2024-03-02 05:01] LABS: Hematocrit 28.3 % (39.0-52.0); Hemoglobin 8.4 g/dL (13.0-18.0); Mean Corp Hgb Conc. 29.7 g/dL (33.0-37.0); Mean Corpuscular Hgb 25.7 pg (27.0-31.0); Mean Corpuscular Volume 86.5 fL (80.0-94.0); Mean Platelet Volume 10.8 fL (7.4-10.4); Platelet Count 300 10^3/uL (130-400); Red Blood Cell Count 3.27 10^6/uL (4.70-6.10); Red Cell Dist. Width 22.5 % (11.5-14.5)
--- NOTE | 2024-03-02 05:11 | PTCARENOTE ---
pt became very agitated again- very difficult to keep safe- flail around in bed pulls at oxygen leads etc. 1-1 remains at bedside
[2024-03-02 05:39] LABS: Blood Urea Nitrogen 26 mg/dl (9-20); Calcium 8.1 mg/dl (8.4-10.2); Carbon Dioxide 29 mmol/L (22-30); Chloride 94 mmol/L (98-107); Estimated Creatinine Clearance 69 ml/min; Glucose 81 mg/dl (70-99); Potassium 4.7 mmol/L (3.5-5.1); Sodium 133 mmol/L (135-145); eGFR > 60.00
[2024-03-02 08:17] LABS: Glucose - Point of Care 75 mg/dl (70-99)
[2024-03-02] MEDS: NOVOLOG FLEXPEN-LOW RESISTANCE SC ×3 (08:33→17:10)
--- NOTE | 2024-03-02 10:02 | PTCARENOTE ---
patient is lethargic and confused. unable to take PO anything including AM meds. family at bedside raising concerns. patient was started on PO seroquel @HS and PRN and given twice last night due to agitation. MD made aware. patient assisted with
perineal care (had an incontinence episode) bed linen changed. turned and repositioned for comfort. medsitter continues to monitor the patient for safety
[2024-03-02] MEDS: NOVOLOG FLEXPEN SC ×3 (11:34→17:10)
[2024-03-02] MEDS: LOW STRENGTH ASPIRIN TUBE (11:35)
[2024-03-02] MEDS: ELIQUIS PO (11:35)
[2024-03-02] MEDS: FEOSOL PO (11:35)
[2024-03-02] MEDS: LASIX PO (11:35)
[2024-03-02] MEDS: FARXIGA PO (11:35)
[2024-03-02] MEDS: ZESTRIL PO (11:36)
[2024-03-02] MEDS: TOPROL XL PO (11:36)
[2024-03-02 11:40] LABS: Glucose - Point of Care 88 mg/dl (70-99)
--- NOTE | 2024-03-02 12:41 | W.PN.HOSP.TC ---
Today's Communication/Plan
-
Continue with nightly BiPAP and trend VBG daily
Retime Seroquel to 7 PM
Further psychiatry recs appreciated
Assessment / Plan
Assessment / Plan
#Acute on chronic hypoxemic and hypercapnic respiratory failure
#Obstructive sleep apnea noncompliant with CPAP
#COPD
-Has had significant hypercapnia, requiring supplemental oxygen via NC here
-Was started on BiPAP 21/10 on this admission; reduced to 14 due to issues with comfort of high inspiratory pressure
-Issues with compliance to his BiPAP mask due to agitation at night
-Continue nightly BiPAP and trend daily VBG
-Wean supplemental oxygen for SpO2 goal 88 to 94%
#Acute metabolic encephalopathy
-Likely multifactorial with hypercapnia, hospital delirium with extended hospitalization
-Currently on regimen concluding Risperdal and Seroquel
-Has been getting agitated prior to evening Seroquel dose (currently at 10 PM)
-Rescheduled Seroquel to 7 PM, in effort to have full effect of medication by time sleep
-Avoid unnecessary sedatives, anticholinergics as possible
-Monitor MSE
#Chronic HFrEF
-Last echo with LVEF 30 to 35%; unclear etiology though possibly ischemic
-Medications include beta-misha, SGLT2, lisinopril for GDMT
-S/p IV diuretics; remains on oral Lasix regimen
-Euvolemic at this time
#Sepsis secondary to MSSA osteomyelitis
#PAD s/p lower extremity stent
#S/p left BKA
-Underwent left BKA on this hospitalization, s/p course of IV cefazolin
-Remains on high intensity statin and aspirin
-No signs of active infection at this time
#IDDM
-Likely related with ASCVD history; currently on short and long-acting insulin
-Continue with current insulin regimen as well as ISS with Accu-Cheks
-Diabetes team following, titrating insulin to avoid hypoglycemia
#Paroxysmal AF
-Home medications include beta-misha and Eliquis
-No known history of electrophysiologic interventions
-Heart rate has been WNL here
#Iron deficiency anemia
-Currently on oral iron supplement
-Hemoglobin has been stable, no signs of active bleeding
#CKD stage II
-Not associated with known bone mineral disease, acidemia
-Creatinine clearance here has been in the range of 50-70
-Stable and mild
DVT prophylaxis: Home Eliquis
Diet: No added salt
CODE STATUS: DNR
Disposition: Pending SNF when mental status improves
I updated his daughter at the bedside today, 03/02
Anticipated Discharge: > 48 hours
Subjective/Interval History
-
Seen and examined at the bedside. Overnight was agitated and throwing items at staff. Was given additional dose of Seroquel, lethargic as of this morning.
VBG improved this morning, was able to wear BiPAP after additional dose of Seroquel.
Mental status limits history this morning
Objective Data
-
Labs:
Laboratory Results
03/02/24
04:18
WBC 10.0
Hgb 8.4 L
Hct 28.3 L
Plt Count 300
Sodium 133 L
Potassium 4.7
Chloride 94 L
Carbon Dioxide 29
BUN 26 H
Creatinine 1.0
Glucose 81
Calcium 8.1 L
Vital Signs:
Vital Signs
Temp Pulse Resp BP Pulse Ox
97.6 F 120 30 90/75 86
03/02/24 11:30 03/02/24 06:00 03/02/24 06:00 03/02/24 04:02 03/02/24 06:00
I&O
03/01/24 03/02/24 03/03/24
06:59 06:59 06:59
Intake Total 1080 / 1080 480 / 480
Output Total 1700 / 1700 1900 / 1900
Balance -620 / -620 -1420 / -1420
Review of Systems
-
Unable to obtain full review of systems at this time due to: Other (Sedation)
Physical Exam
-
General: Well Developed, No Apparent Distress, Comfortable and Obese
HEENT: Normocephalic, Atraumatic, Moist Mucous Membranes, Anicteric and Other (Large neck diameter)
Respiratory: Clear to Auscultation and Non Labored Respirations; Negative Accessory Resp Muscle Use
Cardiac: Regular Rhythm and S1/S2; Negative Murmur, Rub or Gallop
Musculoskeletal: No Clubbing, No Cyanosis and No Edema
Skin: Warm and Dry; Negative Rash
Neuro: Sedated and Nonfocal/Grossly Intact
Data Reviewed
-
Labs: Labs Reviewed by me and Discussed with Family
--- NOTE | 2024-03-02 12:52 | W.PN.UPDATE ---
Update Note
Progress Note Update
Patient is presently restless and daughter who was visiting feels he is oversedated. He is pulling softly at his EKG leads yet is not agitated or aggressive. He is oriented in all spheres but further cognitive testing not possible as he is too
inattentive.
Dr. Cristobal has started Seroquel instead of Risperdal , it seems he was less agitated last night.
At this point I would continue the Seroquel; discussed with daughter.
Will continue F/U.
--- NOTE | 2024-03-02 13:46 | PTCARENOTE ---
unable to redirect the patient, continuously ripping wires of his chest, pulls on tubes, IV lines and telemetry wires. family informed over the phone and asked to come and help redirect the patient. unfortunately, cannot be here. educated on
the need to apply b/l hand mitts for protection. understanding verbalized. patient isn't alert at this time, no PO medication could be administered, Dr. Alicea aware. cont to monitor the patient and anticipate his needs
[2024-03-02 16:58] LABS: Glucose - Point of Care 89 mg/dl (70-99)
[2024-03-02] MEDS: DESENEX/MITRAZOL/ZEASORB TOPICAL (17:10)
[2024-03-02] MEDS: SEROQUEL PO (18:20)
[2024-03-02] MEDS: MELATONIN PO (18:20)
[2024-03-02] MEDS: TOPROL XL 50 MG PO (19:39)
[2024-03-02] MEDS: ELIQUIS 5 MG PO (19:39)
[2024-03-02] MEDS: PEPCID 20 MG PO (19:39)
[2024-03-02 21:09] LABS: Glucose - Point of Care 104 mg/dl (70-99)
--- NOTE | 2024-03-02 22:00 | PTCARENOTE ---
pt ax1- calmer than last night but still impulsive and confused requiring 1-1. blood glucose trending down-- oil painter decreased Lantus dose see mar
[2024-03-02] MEDS: SEROQUEL 50 MG PO (22:09)
[2024-03-02] MEDS: DESENEX/MITRAZOL/ZEASORB 1 APPLIC TOPICAL (22:09)
[2024-03-02] MEDS: LANTUS 0.1 UNITS SC (22:09)
[2024-03-03] VITALS (12 sets, daily range): BP systolic 97–140; BP diastolic 66–101; PULSE 2–97; BMI 33.4
--- NOTE | 2024-03-03 00:30 | PTCARENOTE ---
pt calm cooperative and more oriented plus conversant- ate some dinner-had very large formed bm weaned oxygen to 2 liters- med sitter for safety-
[2024-03-03 04:36] LABS: Venous Blood Gas B.E. 8.5 mmol/L (-4 to +4); Venous Blood Gas HCO3 35.3 mmol/L (22-27); Venous Blood Gas O2 Sat % 99.1 %; Venous Blood Gas pCO2 61 mmHg (35-48); Venous Blood Gas pH 7.37 (7.32-7.43); Venous Blood Gas pO2 115 mmHg (30-50)
--- NOTE | 2024-03-03 04:37 | PTCARENOTE ---
Addendum entered by Christos De Leon RN 03/03/24 04:41:
pt was unable to tolerate bipap after 2 am
Original Note:
pt off bipap around 2 AM- currently on 3 liters- vbg sent- pt more oriented- no longer requires mitts- still monitored by [facility] neelimater
[2024-03-03 05:05] LABS: Blood Urea Nitrogen 20 mg/dl (9-20); Calcium 8.1 mg/dl (8.4-10.2); Carbon Dioxide 34 mmol/L (22-30); Chloride 96 mmol/L (98-107); Estimated Creatinine Clearance 76 ml/min; Glucose 128 mg/dl (70-99); Potassium 4.1 mmol/L (3.5-5.1); Sodium 135 mmol/L (135-145); eGFR > 60.00
[2024-03-03 05:27] LABS: Hematocrit 31.7 % (39.0-52.0); Hemoglobin 9.3 g/dL (13.0-18.0); Mean Corp Hgb Conc. 29.3 g/dL (33.0-37.0); Mean Corpuscular Hgb 25.6 pg (27.0-31.0); Mean Corpuscular Volume 87.3 fL (80.0-94.0); Mean Platelet Volume 10.1 fL (7.4-10.4); Platelet Count 330 10^3/uL (130-400); Red Blood Cell Count 3.63 10^6/uL (4.70-6.10); Red Cell Dist. Width 22.7 % (11.5-14.5); White Blood Cell Count 8.9 10^3/uL (4.8-10.8)
[2024-03-03 07:58] LABS: Glucose - Point of Care 105 mg/dl (70-99)
[2024-03-03] MEDS: NOVOLOG FLEXPEN-LOW RESISTANCE SC ×3 (08:42→12:51)
[2024-03-03] MEDS: FEOSOL 325 MG PO (08:43)
[2024-03-03] MEDS: LASIX 40 MG PO (08:43)
[2024-03-03] MEDS: TOPROL XL 50 MG PO ×2 (08:43→20:03)
[2024-03-03] MEDS: ZESTRIL 2.5 MG PO (08:43)
[2024-03-03] MEDS: FARXIGA 10 MG PO (08:43)
[2024-03-03] MEDS: NOVOLOG FLEXPEN 7 UNITS SC ×3 (08:43→17:02)
[2024-03-03] MEDS: ELIQUIS 5 MG PO ×2 (08:43→20:07)
[2024-03-03] MEDS: DESENEX/MITRAZOL/ZEASORB 1 APPLIC TOPICAL ×2 (08:43→20:07)
[2024-03-03] MEDS: LOW STRENGTH ASPIRIN 81 MG TUBE (08:43)
[2024-03-03] MEDS: TYLENOL 650 MG PO (10:40)
[2024-03-03 11:31] LABS: Glucose - Point of Care 119 mg/dl (70-99)
--- NOTE | 2024-03-03 11:33 | W.PN.HOSP.TC ---
Today's Communication/Plan
-
Continue nightly BiPAP and trend VBG
Continue Seroquel at 7 PM
Monitor MSE
Avoid restraints/chemical sedation as possible for SNF plan
Assessment / Plan
Assessment / Plan
#Acute on chronic hypoxemic and hypercapnic respiratory failure
#Obstructive sleep apnea noncompliant with CPAP
#COPD
-Has had significant hypercapnia, requiring supplemental oxygen via NC here
-Was started on BiPAP 21/10 on this admission; reduced to 14 due to issues with comfort of high inspiratory pressure
-Issues with compliance to his BiPAP mask due to agitation at night
-Continue nightly BiPAP and trend daily VBG
-Wean supplemental oxygen for SpO2 goal 88 to 94%
#Acute metabolic encephalopathy
-Likely multifactorial with hypercapnia, hospital delirium with extended hospitalization
-Currently on regimen concluding Risperdal and Seroquel
-Has been getting agitated prior to evening Seroquel dose (currently at 10 PM)
-Rescheduled Seroquel to 7 PM, in effort to have full effect of medication by sleep time
-Avoid unnecessary sedatives, anticholinergics as possible
-Monitor MSE
#Chronic HFrEF
-Last echo with LVEF 30 to 35%; unclear etiology though possibly ischemic
-Medications include beta-misha, SGLT2, lisinopril for GDMT
-S/p IV diuretics; remains on oral Lasix regimen
-Euvolemic at this time
#Sepsis secondary to MSSA osteomyelitis
#PAD s/p lower extremity stent
#S/p left BKA
-Underwent left BKA on this hospitalization, s/p course of IV cefazolin
-Remains on high intensity statin and aspirin
-No signs of active infection at this time
#IDDM
-Likely related with ASCVD history; currently on short and long-acting insulin
-Continue with current insulin regimen as well as ISS with Accu-Cheks
-Diabetes team following, titrating insulin to avoid hypoglycemia
#Paroxysmal AF
-Home medications include beta-misha and Eliquis
-No known history of electrophysiologic interventions
-Heart rate has been WNL here
#Iron deficiency anemia
-Currently on oral iron supplement
-Hemoglobin has been stable, no signs of active bleeding
#CKD stage II
-Not associated with known bone mineral disease, acidemia
-Creatinine clearance here has been in the range of 50-70
-Stable and mild
DVT prophylaxis: Home Eliquis
Diet: No added salt
CODE STATUS: DNR
Disposition: Pending SNF when mental status improves
I updated his daughter at the bedside today, 03/02 and 03/03
Anticipated Discharge: 24 - 48 hours
Subjective/Interval History
-
Date of Service: March 03, 2024
Seen and examined at the bedside. No acute events reported overnight. AFVSS this morning on 4 L O2
Per nursing he had a good night, no agitation and was able to wear BiPAP. VBG this morning with CO2 61. Mildly encephalopathic though no agitation
Denies any acute complaints today
Objective Data
-
Labs:
Laboratory Results
03/03/24
04:26
WBC 8.9
Hgb 9.3 L
Hct 31.7 L
Plt Count 330
Sodium 135
Potassium 4.1
Chloride 96 L
Carbon Dioxide 34 H
BUN 20
Creatinine 0.9
Glucose 128 H
Calcium 8.1 L
Vital Signs:
Vital Signs
Temp Pulse Resp BP Pulse Ox
97.7 F 94 19 97/84 98
03/03/24 08:10 03/03/24 06:00 03/03/24 06:00 03/03/24 06:00 03/03/24 06:00
I&O
03/02/24 03/03/24 03/04/24
06:59 06:59 06:59
Intake Total 480 / 480 910 / 910
Output Total 1900 / 1900 1200 / 1200
Balance -1420 / -1420 -290 / -290
Review of Systems
-
History Source: Patient
All other systems: Reviewed and negative
Physical Exam
-
General: Well Developed, No Apparent Distress, Comfortable and Obese
HEENT: Normocephalic, Atraumatic, Moist Mucous Membranes, Anicteric and Other (Wide neck diameter)
Respiratory: Clear to Auscultation and Non Labored Respirations; Negative Accessory Resp Muscle Use
Cardiac: Regular Rhythm and S1/S2; Negative Murmur, Rub or Gallop
GI: Soft, Nontender, Nondistended and Normal Bowel Sounds
Musculoskeletal: No Clubbing, No Cyanosis, No Edema and Other (Left-sided BKA with dressing)
Skin: Warm and Dry; Negative Rash
Neuro: Awake, Alert, Oriented and Nonfocal/Grossly Intact
Psych: Calm
Data Reviewed
-
Labs: Labs Reviewed by me, Discussed with Nurse and Discussed with Family
--- NOTE | 2024-03-03 12:10 | W.PN.UPDATE ---
Update Note
Progress Note Update
Patient is calmer this today, less sedated. Talks about wanting to go home. Oriented in all spheres but has very poor attention span and very limited immediate recall. Not presently agitated or psychotic.
Would continue current medications, will F/U.
[2024-03-03] MEDS: MORPHINE SULFATE 1 MG IV (13:40)
--- NOTE | 2024-03-03 15:08 | PTCARENOTE ---
mental status improved. cont on medsitter. complete care given, wound care to Manuel LUCAS completed. assisted with meals, good appetite. patient pleasant and agrees with plan of care. c/o back pain. offered tylenol with no relief, 1 mg Morphine IV given.
patient is restfully sleeping at present.
[2024-03-03 16:58] LABS: Glucose - Point of Care 181 mg/dl (70-99)
[2024-03-03] MEDS: NOVOLOG FLEXPEN-LOW RESISTANCE 1 UNITS SC (17:02)
[2024-03-03] MEDS: MELATONIN 10 MG PO (17:03)
[2024-03-03] MEDS: SEROQUEL 50 MG PO (17:03)
[2024-03-03] MEDS: PEPCID 20 MG PO (20:03)
--- NOTE | 2024-03-03 20:54 | PTCARENOTE ---
Received pt at change of shift. Unable to verify vital signs prior to 18:45. Pt AAOx3, pleasant, and states understanding of the BIPAP - not to touch the bipap mask tonight while he's wearing it and he is to ask for help. Medsitter in place, 1:1
while pt is on the BIPAP mask. VSS at this time. Call castellon in reach.
[2024-03-03 21:50] LABS: Glucose - Point of Care 174 mg/dl (70-99)
[2024-03-03] MEDS: LANTUS 0.22 UNITS SC (22:20)
[2024-03-03] MEDS: MORPHINE SULFATE 2 MG IV (22:20)
[2024-03-04] VITALS (19 sets, daily range): BP systolic 86–123; BP diastolic 48–104; PULSE 2–91; O2SAT 95; BMI 33.5
[2024-03-04] MEDS: SEROQUEL 25 MG PO (00:08)
--- NOTE | 2024-03-04 00:29 | PTCARENOTE ---
Pt more agitated than start of shift. Unable to keep BiPAP mask on pt. Gave PRN seroquel as ordered. Notified RT.
[2024-03-04 05:45] LABS: Venous Blood Gas B.E. 5.8 mmol/L (-4 to +4); Venous Blood Gas HCO3 32.6 mmol/L (22-27); Venous Blood Gas O2 Sat % 99.8 %; Venous Blood Gas pCO2 59 mmHg (35-48); Venous Blood Gas pH 7.35 (7.32-7.43); Venous Blood Gas pO2 155 mmHg (30-50)
[2024-03-04 05:47] LABS: Venous Blood Gas O2 Therapy 4L
[2024-03-04 06:04] LABS: % Basophils 0.5 % (0-2); % Eosinophils 5.3 % (0-6); % Immature Granulocytes 0.4 % (0-0.5); % Monocytes 6.6 % (1.7-9.3); % Neutrophils 67.2 % (42.2-75.2); Absolute Eosinophils 0.4 10^3/uL (0-0.7); Absolute Lymphocytes 1.6 10^3/uL (1.2-3.4); Absolute Monocytes 0.5 10^3/uL (0.1-0.6); Absolute Neutrophils 5.4 10^3/uL (1.4-6.5); Hematocrit 31.2 % (39.0-52.0); Hemoglobin 9.1 g/dL (13.0-18.0); Mean Corp Hgb Conc. 29.2 g/dL (33.0-37.0); Mean Corpuscular Hgb 25.6 pg (27.0-31.0); Mean Corpuscular Volume 87.9 fL (80.0-94.0); Mean Platelet Volume 10.1 fL (7.4-10.4); Nucleated Red Blood Cells % 0 % (-); Platelet Count 331 10^3/uL (130-400); Red Blood Cell Count 3.55 10^6/uL (4.70-6.10); Red Cell Dist. Width 22.5 % (11.5-14.5); White Blood Cell Count 8.1 10^3/uL (4.8-10.8)
[2024-03-04 06:14] LABS: Blood Urea Nitrogen 17 mg/dl (9-20); Calcium 8.1 mg/dl (8.4-10.2); Carbon Dioxide 33 mmol/L (22-30); Chloride 97 mmol/L (98-107); Estimated Creatinine Clearance 76 ml/min; Glucose 128 mg/dl (70-99); Potassium 4.2 mmol/L (3.5-5.1); Sodium 136 mmol/L (135-145); eGFR > 60.00
--- NOTE | 2024-03-04 07:20 | PN.DE.MGMTRT ---
Insulin Management
- -
03/04/2024: Diabetes management Follow up:
73 years old male with multiple comorbidities admitted to the hospital on 01/27 with sepsis due to left foot plantar infected ulcer 2/2 diabetic foot ulcer and peripheral vascular disease S/P left heal debridement. Diabetes consult requested on 02/04
for Hyperglycemia.
PMH: HTN, HLD, CAD, PVD, CHF, COPD and T2DM. Was taking Jardiance 10mg daily, Tresiba 45 units daily, metformin 1000mg BID and NovoLog 7-20 units AC. A1C 6.4%.
03/04 S/P amputation L lower leg. Glucose range 105 to 181 yesterday. Received HS lantus to 22 units fasting this AM 128. Will continue lantus 22 units @ hs. with novolog 7 units AC with low corrective. If patient does not eat please HOLD ac
novolog but continue corrective insulin.
Will follow.
Diabetes History
- -
Type of Diabetes: 2 requiring insulin
Pre-Admission Diabetes Regimen
03/04/24
05:35
Creatinine 0.9
Lab Results
Hemoglobin A1c 6.4 % (4.0-5.6) H 01/29/24 07:22
Insulin Pump Settings
IP Diabetes Regimen
03/03/24 03/03/24 03/03/24
07:42 11:20 16:47
Glucose
POC Glucose 105 H 119 H 181 H
03/03/24 03/04/24
21:39 05:35
Glucose 128 H
POC Glucose 174 H
Meal type: Breakfast
Amount consumed: 80%
Patient Education
[2024-03-04] MEDS: FARXIGA 10 MG PO (08:08)
[2024-03-04] MEDS: LOW STRENGTH ASPIRIN 81 MG TUBE (08:08)
[2024-03-04] MEDS: ELIQUIS 5 MG PO ×2 (08:08→19:53)
[2024-03-04] MEDS: FEOSOL 325 MG PO (08:08)
[2024-03-04] MEDS: DESENEX/MITRAZOL/ZEASORB 1 APPLIC TOPICAL ×2 (08:09→19:53)
[2024-03-04 08:15] LABS: Glucose - Point of Care 125 mg/dl (70-99)
[2024-03-04] MEDS: LASIX 40 MG PO (08:37)
[2024-03-04] MEDS: ZESTRIL 2.5 MG PO (08:37)
[2024-03-04] MEDS: TOPROL XL 50 MG PO ×2 (08:38→20:01)
[2024-03-04] MEDS: NOVOLOG FLEXPEN 7 UNITS SC ×3 (08:38→17:35)
--- NOTE | 2024-03-04 09:32 | PTCARENOTE ---
Med sitter removed. Patient education provided. Patient verbalized understanding. Call castellon within reach. Bed alarm on and audible. Care ongoing.
[2024-03-04] MEDS: MORPHINE SULFATE 2 MG IV (10:58)
[2024-03-04 12:03] LABS: Glucose - Point of Care 225 mg/dl (70-99)
--- NOTE | 2024-03-04 12:25 | CM ---
CM met with pt and spouse bedside per request
Med-sitter removed this morning and trial off for 24 hours
Requesting reconsideration at [facility]/admissions will review
Pt has been offered bed at [facility]- awaiting confirmation that they will arrange for bipap if needed
Pt has working bipap at home
[facility] admissions
Spouse may be interested in bed-hold if needed- Louann aware
Discharge Disposition- [facility] vs [facility], bipap needs
[2024-03-04] MEDS: NOVOLOG FLEXPEN-LOW RESISTANCE 2 UNITS SC (12:45)
--- NOTE | 2024-03-04 15:08 | W.PN.HOSP.TC ---
Today's Communication/Plan
-
Assessment / Plan
Assessment / Plan
#Acute on chronic hypoxemic and hypercapnic respiratory failure
#Obstructive sleep apnea noncompliant with CPAP
#COPD
-Has had significant hypercapnia, requiring supplemental oxygen via NC here
-Was started on BiPAP 18/8 on this admission; reduced to 148 due to issues with comfort of high inspiratory pressure
-Issues with compliance to his BiPAP mask due to agitation at night
-Continue nightly BiPAP and trend daily VBG
-Wean supplemental oxygen for SpO2 goal 88 to 94%
#Acute metabolic encephalopathy
-Likely multifactorial with hypercapnia, hospital delirium with extended hospitalization
-Currently on regimen concluding Risperdal and Seroquel
-Has been getting agitated prior to evening Seroquel dose (currently at 10 PM)
-Rescheduled Seroquel to 7 PM, in effort to have full effect of medication by sleep time
-Avoid unnecessary sedatives, anticholinergics as possible
-Monitor MSE
#Chronic HFrEF
-Last echo with LVEF 30 to 35%; unclear etiology though possibly ischemic
-Medications include beta-misha, SGLT2, lisinopril for GDMT
-S/p IV diuretics; remains on oral Lasix regimen
-Euvolemic at this time
#Sepsis secondary to MSSA osteomyelitis
#PAD s/p lower extremity stent
#S/p left BKA
-Underwent left BKA on this hospitalization, s/p course of IV cefazolin
-Remains on high intensity statin and aspirin
-No signs of active infection at this time
#IDDM
-Likely related with ASCVD history; currently on short and long-acting insulin
-Continue with current insulin regimen as well as ISS with Accu-Cheks
-Diabetes team following, titrating insulin to avoid hypoglycemia
#Paroxysmal AF
-Home medications include beta-misha and Eliquis
-No known history of electrophysiologic interventions
-Heart rate has been WNL here
#Iron deficiency anemia
-Currently on oral iron supplement
-Hemoglobin has been stable, no signs of active bleeding
#CKD stage II
-Not associated with known bone mineral disease, acidemia
-Creatinine clearance here has been in the range of 50-70
-Stable and mild
DVT prophylaxis: Home Eliquis
Diet: No added salt
CODE STATUS: DNR
Disposition: Pending SNF, needs to remain of of restraints, 1:1, Medsitter
Anticipated Discharge: Within 24 hours
Subjective/Interval History
-
Date of Service: March 04, 2024
Seen and examined. No new complaints. No acute overnight events.
Sitting in bedside chair lying on his left side offloading pressure from his bedsore
Overnight was able to remain off of restraints and Medsitter
Refused BiPAP overnight therefore a 1:1 for 1 hour was ordered
Objective Data
-
Labs:
Laboratory Results
03/04/24
05:35
WBC 8.1
Hgb 9.1 L
Hct 31.2 L
Plt Count 331
Sodium 136
Potassium 4.2
Chloride 97 L
Carbon Dioxide 33 H
BUN 17
Creatinine 0.9
Glucose 128 H
Calcium 8.1 L
Vital Signs:
Vital Signs
Temp Pulse Resp BP Pulse Ox
97.5 F 97 20 101/56 99
03/04/24 15:06 03/04/24 14:00 03/04/24 14:00 03/04/24 12:33 03/04/24 12:33
I&O
03/03/24 03/04/24 03/05/24
06:59 06:59 06:59
Intake Total 910 / 910 350 / 350
Output Total 1200 / 1200 1025 / 1025 475 / 475
Balance -290 / -290 -675 / -675 -475 / -475
Physical Exam
-
General: Well Developed and Well Nourished
HEENT: Normocephalic and Atraumatic
Respiratory: Clear to Auscultation
Cardiac: Regular Rhythm and S1/S2
GI: Soft, Nontender, Nondistended and Normal Bowel Sounds
Skin: Warm
Neuro: Awake, Alert, Oriented and AO x 3
Psych: Calm
--- NOTE | 2024-03-04 15:46 | PTCARENOTE ---
Patient AOx3. Patient forgetful at times. Bed alarm on and audible. Patients family at bedside throughout shift. Patient on 4L midflow. A fib with BBB on the monitor. VSS. Patient with periods of incontinence to urine. Stella lift back to bed from
chair. Patient c/o back pain. Medication provided per MAY. Call castellon within reach, bed in lowest position, and bed wheels locked.
[2024-03-04 17:21] LABS: Glucose - Point of Care 287 mg/dl (70-99)
[2024-03-04] MEDS: SEROQUEL 50 MG PO (17:34)
[2024-03-04] MEDS: MELATONIN 10 MG PO (17:34)
[2024-03-04] MEDS: NOVOLOG FLEXPEN-LOW RESISTANCE 3 UNITS SC (17:34)
[2024-03-04 18:28] LABS: Venous Blood Gas B.E. 8.5 mmol/L (-4 to +4); Venous Blood Gas HCO3 35.6 mmol/L (22-27); Venous Blood Gas O2 Sat % 95.8 %; Venous Blood Gas pCO2 63 mmHg (35-48); Venous Blood Gas pH 7.36 (7.32-7.43); Venous Blood Gas pO2 76 mmHg (30-50)
[2024-03-04] MEDS: PEPCID 20 MG PO (19:53)
[2024-03-04] MEDS: LANTUS 0.22 UNITS SC (21:46)
[2024-03-04 21:59] LABS: Glucose - Point of Care 269 mg/dl (70-99)
--- NOTE | 2024-03-04 22:16 | PTCARENOTE ---
Pt oriented at this time, reports frustration with situation, but is agreeable to wearing BiPAP. Mouth care provided, hygiene care performed. Pt remains afib on monitoring equipment, BPs soft, 90s systolic, see documentation. Pt remains
asymptomatic. Wound care performed per orders. Pt on turn schedule to prevent further skin breakdown. Bed alarm in place for pt safety. Call castellon within reach and pt ringing appropriately at this time.
[2024-03-05] VITALS (9 sets, daily range): BP systolic 92–116; BP diastolic 47–74; PULSE 2–80; BMI 33.4
--- NOTE | 2024-03-05 01:19 | PTCARENOTE ---
Pt restless, unable to sleep. Removed BiPAP mask. This RN placed pt on 4L MF cannula Assessed pain, provided repositioning, sips of water. RT replaced BiPAP mask.
[2024-03-05] MEDS: ZESTRIL 2.5 MG PO (07:55)
[2024-03-05] MEDS: FARXIGA 10 MG PO (07:55)
[2024-03-05] MEDS: ELIQUIS 5 MG PO (07:55)
[2024-03-05] MEDS: LOW STRENGTH ASPIRIN 81 MG TUBE (07:55)
[2024-03-05] MEDS: TOPROL XL 50 MG PO (07:56)
[2024-03-05] MEDS: FEOSOL 325 MG PO (07:56)
[2024-03-05] MEDS: LASIX 40 MG PO (07:56)
[2024-03-05] MEDS: DESENEX/MITRAZOL/ZEASORB 1 APPLIC TOPICAL (07:56)
[2024-03-05] MEDS: NOVOLOG FLEXPEN-LOW RESISTANCE SC (08:06)
[2024-03-05 08:13] LABS: Glucose - Point of Care 138 mg/dl (70-99)
[2024-03-05] MEDS: NOVOLOG FLEXPEN 9 UNITS SC ×2 (08:47→11:39)
[2024-03-05] MEDS: NOVOLOG FLEXPEN SC (08:53)
--- NOTE | 2024-03-05 09:00 | PTCARENOTE ---
Patient received from ribbon lap machine tender. Patient resting comfortably in bed. Patients mentation continues to improved. No events noted overnight. Some complaints of pain at this time, denied any pain medication. Patient was on BiPAP HS, now on 4L
midflow N/C, will attempt to wean as tolerated. Wound care done overnight, to be assessed and dressed as needed. No tests scheduled at this time. Call castellon in reach.
--- NOTE | 2024-03-05 11:30 | CM ---
WARREN folioing re: discharge planning.
Reviewed pt's chart, met with pt and pt's daughter Lorena at bedside.
According to pt is medically stable to be discharged today. Both pt and her daughter Lorena are aware, expressed their agreement. I UMM reviewed, placed on chart, pt has a copy.
Per CM noted a plan is [facility] vs [facility]. CM discussed it with the pt and pt's daughter and both pt and his family decided [facility] instead of [facility]. Pt stated he preferred slow recovery.
[facility] specialist is aware of pt's and his family preference.
CM spoke to [facility] director craft center and she confirmed they do have a bed available and pt is accepted for admission today and they will order Bi-pap.
[facility] nursing report: [phone]
Discharge instructions fax: [phone]
to arrange transportation [facility]. Requested crop picker time after 3:00 p.m. [facility] completed and left with .
D/C plan: [facility] for a short term rehab.
[2024-03-05] MEDS: NOVOLOG FLEXPEN-LOW RESISTANCE 1 UNITS SC (11:39)
[2024-03-05 11:47] LABS: Glucose - Point of Care 179 mg/dl (70-99)
--- NOTE | 2024-03-05 13:26 | W.PN.UPDATE ---
Update Note
Progress Note Update
Pt seen, sitting up in bed, alert, calm, eating lunch. No agitation noted, much improved overall, taking Seroquel 50 mg HS; had a couple doses of Seroquel 25 mg prn. Family member present, stating they expect pt to be discharge to SNF.
Imp: Delirium- multifactorial, with intermittent agitation, improved
Rec: continue current management
--- NOTE | 2024-03-05 14:20 | W.PN.HOSP.TC ---
Today's Communication/Plan
-
As he has remained off of restraints, med neelimater, 1-1 we will plan to discharge to [facility] today
More than 30 minutes spent in discharge including
Final examination of the patient
Summarizing hospital stay
Instructions for continuing care to all relevant caregivers
Preparation of discharge records, prescriptions, and referral forms
Total time spent (in minutes): 52minutes
Assessment / Plan
Assessment / Plan
#Acute on chronic hypoxemic and hypercapnic respiratory failure
#Obstructive sleep apnea noncompliant with CPAP
#COPD
-Has had significant hypercapnia, requiring supplemental oxygen via NC here
-Was started on BiPAP 18/8 on this admission; reduced to 14/8 due to issues with comfort of high inspiratory pressure
-Issues with compliance to his BiPAP mask due to agitation at night
-Continue nightly BiPAP and trend daily VBG
-Wean supplemental oxygen for SpO2 goal 88 to 94%
#Acute metabolic encephalopathy
-Likely multifactorial with hypercapnia, hospital delirium with extended hospitalization
-Currently on regimen concluding Risperdal and Seroquel
-Has been getting agitated prior to evening Seroquel dose (currently at 10 PM)
-Rescheduled Seroquel to 7 PM, in effort to have full effect of medication by sleep time
-Avoid unnecessary sedatives, anticholinergics as possible
-Monitor MSE
#Chronic HFrEF
-Last echo with LVEF 30 to 35%; unclear etiology though possibly ischemic
-Medications include beta-misha, SGLT2, lisinopril for GDMT
-S/p IV diuretics; remains on oral Lasix regimen
-Euvolemic at this time
#Sepsis secondary to MSSA osteomyelitis
#PAD s/p lower extremity stent
#S/p left BKA
-Underwent left BKA on this hospitalization, s/p course of IV cefazolin
-Remains on high intensity statin and aspirin
-No signs of active infection at this time
#IDDM
-Likely related with ASCVD history; currently on short and long-acting insulin
-Continue with current insulin regimen as well as ISS with Accu-Cheks
-Diabetes team following, titrating insulin to avoid hypoglycemia
#Paroxysmal AF
-Home medications include beta-misha and Eliquis
-No known history of electrophysiologic interventions
-Heart rate has been WNL here
#Iron deficiency anemia
-Currently on oral iron supplement
-Hemoglobin has been stable, no signs of active bleeding
#CKD stage II
-Not associated with known bone mineral disease, acidemia
-Creatinine clearance here has been in the range of 50-70
-Stable and mild
DVT prophylaxis: Home Eliquis
Diet: No added salt
CODE STATUS: DNR
Disposition: Pending SNF, needs to remain of of restraints, 1:1, Medsitter
Anticipated Discharge: Today
Subjective/Interval History
-
Date of Service: March 05, 2024
Seen and examined. No new complaints. No acute overnight events.
Has remained also 1-1, [facility], restrained
Use BiPAP from 9 PM to 1 AM
Has some back pain likely related to the bed
Objective Data
-
Vital Signs:
Vital Signs
Temp Pulse Resp BP Pulse Ox
97.7 F 86 27 93/59 98
03/05/24 11:41 03/05/24 10:00 03/05/24 10:00 03/05/24 10:00 03/05/24 09:14
I&O
03/04/24 03/05/24 03/06/24
06:59 06:59 06:59
Intake Total 350 / 350 720 / 720
Output Total 1025 / 1025 1125 / 1125
Balance -675 / -675 -405 / -405
Physical Exam
-
General: Well Developed and Well Nourished
HEENT: Normocephalic and Atraumatic
Respiratory: Clear to Auscultation
Cardiac: Regular Rhythm and S1/S2
GI: Soft, Nontender and Nondistended
Skin: Warm
Neuro: Awake, Alert, Oriented and AO x 3
Psych: Calm
--- NOTE | 2024-03-05 14:42 | W.DCSUMMARY ---
Discharge Summary
Discharge Data
Date of Admission: 01/28/24
Date of Discharge: 03/05/24
-
Pending Results: No
Discharge Plan
-
Patient Disposition: Snf/SNF
Discharge Diagnosis/Procedures: BKA
Left LE osteomyelitis
Hospital acquired delirium
Condition: Fair
Activity: With assistance, As tolerated and Do not bear weight L leg
Driving Restrictions: Not until seen by your Dr
Activity Restrictions/Additional Instructions:
73 years old male with history of hypertension, hyperlipidemia, CHF, COPD, CAD
Presented with a right foot ulcer from podiatry office. Was seen by vascular surgery was taken to the OR for urgent excisional debridement of left heel gangrene as there was concern for ongoing sepsis due to progressive lethargy. Hospitalization
was complicated by loss of airway due to unresponsiveness and was found to have a SpO2 of 77%. CT PE was negative for pulmonary embolism however did show right lower lobe consolidation and moderate right pleural effusion. With mild to moderate
pulmonary edema.Therefore anesthesia was called for intubation. Initially refused amputation however after further discussion was agreeable. It was unclear as to what had precipitated the hypoxia was evaluated by cardiology did not believe
diuretics were required as was hypotensive and required Levophed. Repeat pulmonary imaging was completed that demonstrated pulmonary edema and exam findings consistent with heart failure. Therefore started IV diuretics even though blood pressure
remains on pressor support. This was eventually transition to p.o. diuretics. Was able to eventually extubate on 02/05/2024. Continued to have respiratory changes requiring supplemental oxygen and BiPAP at bedtime as needed. Additionally should be
noted that there was an RAUL that improved with diuretics as well for which nephrology was consulted. Recommended to continue BiPAP at bedtime as needed while napping.
The shock that required Levophed was believed to be secondary to sepsis rather than cardiogenic. Antibiotics were de-escalated by infectious diseases to Unasyn, there was understanding that limb salvage was wanted however this was eventually
changed into below-knee amputation on 02/22/2024. Eventually antibiotics were transitioned to cefazolin
Hospital course was further complicated for concern for ileus for which general surgery was consulted and did not require any further interventions as did not develop nausea vomiting and continued on clear liquid diet as diet was advanced slowly.
Due to to prolonged hospitalization developed what we suspect was hospital-acquired delirium/agitation. Was evaluated by psychiatry. Started on risperidone. Did require mittens/restraints/one-to-one sitter however prior to discharge was able to
discontinue all these interventions.
Evaluated by physical therapy recommended SNF. Will discharge to [facility].
Wound Care Instructions
Coccyx- clean with saline or soap and water, skin prep periwound, honey gel, alginate, cover with silicone border foam (cut notch along distal border to avoid anus) or thin hydrocolloid dressing (i.e. Exudern Satin), change daily and prn
soilage/drainage.
Left BKA daily ABD pad, Delta and [place] to secure.
- follow up with vascular surgeon as outpatient in 2-4 weeks
L lateral elbow skin tear-clean with saline, silicone border foam, change every 3 days and as needed for loosened dressing.
Miconazole powder to groin folds, sacral crease, affected areas twice a day.
air mattress.
Pressure redistributing chair cushion (i.e. Gel).
Elevate heel off bed with pillows or soft heel relief boot.
Follow up with health care social worker.
Follow up with vascular surgeon.
Referrals:
Yee Peterson DO [Active] -
Iman Anderson PA-C [Specified Professional Personl] - 03/11/24 11:00 am (Vascular surgery office follow-up)
Beverly Malagon PA-C [Family Provider] -
Ubaldo Easton MD [Active] - 03/26/24 11:00 am
Guy Caldera MD [Active] - in two to three weeks
Prescriptions:
New
miconazole nitrate [Miconazorb AF] 2 % Powder
1 applic topical BID Qty: 1 0RF
ferrous sulfate [FeroSul] 325 mg (65 mg iron) Tablet
325 mg PO DAILY Qty: 30 0RF
melatonin 5 mg Tablet
10 mg PO QPM Qty: 60 0RF
Insulin Glargine Lantus [Lantus] 22 UNITS
Subcutaneous Insulin Syringe [Syringe-Insulin] 0 UNIT
As Directed mls/hr SC HS
Ordered By: Conrado Fernández MD
Last Taken: 03/04/24 21:46 0.22 mls
quetiapine 25 mg Tablet
50 mg PO TONIGHT AT 1800 Qty: 30 0RF
metoprolol succinate 50 mg Tablet Extended Release 24 Hr
50 mg PO BID Qty: 60 0RF
insulin aspart U-100 100 unit/mL (3 mL) Insulin Pen
9 unit SC AC Qty: 15 0RF
acetaminophen 325 mg Tablet
650 mg PO Q4HPRN PRN (Reason: mild pain/GARCIA/temp> 100.4F) Qty: 30 0RF
lisinopril 2.5 mg Tablet
2.5 mg PO DAILY Qty: 30 0RF
Continued
metformin 1,000 MG tablet
1,000 mg PO BID
cholecalciferol (vitamin D3) 1,000 UNITS tablet
1,000 units PO DAILY
Eliquis 5 MG tablet
5 mg PO BID
multivitamin Tablet
1 tab PO NOON
furosemide 40 mg Tablet
40 mg PO NOON
atorvastatin 20 mg Tablet
80 mg PO DAILY
famotidine 20 mg Tablet
20 mg PO HS
dicyclomine 20 mg Tablet
20 mg PO DAILYPRN PRN (Reason: IBS)
albuterol sulfate 90 mcg/actuation Hfa Aerosol Inhaler
1 puff INHALATION Q4HPRN PRN (Reason: COPD)
Align (B.infantis) 4 mg Capsule
4 mg PO DAILY
Anoro Ellipta 62.5-25 mcg/actuation Blister With Device
1 inh INHALATION R DAILY
Rx Instructions:
pt state his PCP took him off of this
nystatin 100,000 unit/gram Powder
1 applic TOPICAL DAILY
aspirin 81 mg Tablet,Delayed Release (Dr/Ec)
81 mg PO DAILY Qty: 90 0RF
Jardiance 10 mg Tablet
10 mg PO DAILY 30 Days Qty: 30 0RF
Discontinued
insulin aspart U-100 [Novolog U-100 Insulin aspart] 1,000 UNITS/10 ML solution
7 - 20 units SC AC
metoprolol succinate 25 mg Tablet Extended Release 24 Hr
25 mg PO DAILY
insulin degludec [Tresiba FlexTouch U-100] 100 unit/mL (3 mL) Insulin Pen
45 unit SC DAILY Qty: 0
lisinopril 10 mg Tablet
10 mg PO NOON 30 Days Qty: 30 0RF
spironolactone 25 mg Tablet
25 mg PO DAILY 30 Days Qty: 30 0RF
Discharge Orders:
Discharge Patient (As Directed); Ordered 03/05/24
Ordered By: Conrado Fernández
Discharge Date and Time
Print Language: NAURUAN
--- NOTE | 2024-03-05 14:48 | PTCARENOTE ---
Report called to Prasanna August RN.
--- NOTE | 2024-03-05 15:46 | PTCARENOTE ---
Patient discharged to [facility], transported via EMS. Patient left with all known belongings left in room, family had taken most of his stuff already.
== END 2024-03-05 15:58 | DRG 853 ==
LOC: IMU 10:56
PROVIDERS: Family Medicine; Internal Medicine; Internal Medicine Cardiovascular Disease; Internal Medicine Critical Care Medicine; Nurse Practitioner; Nurse Practitioner Family; Nurse Practitioner Primary Care; Registered Nurse; Specialist; Student in an Organized Health Care Education/Training Program; Surgery Vascular Surgery; ADMITTING PHYSICIAN Hospitalist; ATTENDING PHYSICIAN Hospitalist; CONSULT PHYSICIAN Internal Medicine; CONSULT PHYSICIAN Internal Medicine Cardiovascular Disease; CONSULT PHYSICIAN Psychiatry & Neurology Psychiatry; CONSULT PHYSICIAN Specialist; CONSULT PHYSICIAN Surgery; EMERGENCY PHYSICIAN Emergency Medicine; FAMILY PHYSICIAN Physician Assistant Medical; OTHER PHYSICIAN Podiatrist Foot & Ankle Surgery; OTHER PHYSICIAN Student in an Organized Health Care Education/Training Program; OTHER PHYSICIAN Surgery Vascular Surgery
PROC: 0QBM0ZZ Excision of Left Tarsal, Open Approach (ICD-10-PCS; 2024-01-29)
PROC: 0BH17EZ Insertion of Endotracheal Airway into Trachea, Via Natural or Artificial Opening (ICD-10-PCS; 2024-01-30)
PROC: 5A1955Z Respiratory Ventilation, Greater than 96 Consecutive Hours (ICD-10-PCS; 2024-01-30)
PROC: 03HY32Z Insertion of Monitoring Device into Upper Artery, Percutaneous Approach (ICD-10-PCS; 2024-01-31)
PROC: 02HV33Z Insertion of Infusion Device into Superior Vena Cava, Percutaneous Approach (ICD-10-PCS; 2024-01-31)
PROC: 5A09357 Assistance with Respiratory Ventilation, Less than 24 Consecutive Hours, Continuous Positive Airway Pressure (ICD-10-PCS; 2024-02-05)
PROC: 0Y6J0Z2 Detachment at Left Lower Leg, Mid, Open Approach (ICD-10-PCS; 2024-02-22)
DX: A41.01 Sepsis due to Methicillin susceptible Staphylococcus aureus (principal); G93.41 Metabolic encephalopathy; L89.153 Pressure ulcer of sacral region, stage 3; I50.23 Acute on chronic systolic (congestive) heart failure; K72.00 Acute and subacute hepatic failure without coma; R65.21 Severe sepsis with septic shock; J95.822 Acute and chronic postprocedural respiratory failure; E11.52 Type 2 diabetes mellitus with diabetic peripheral angiopathy with gangrene; N17.9 Acute kidney failure, unspecified; I48.21 Permanent atrial fibrillation; L03.116 Cellulitis of left lower limb; L97.424 Non-pressure chronic ulcer of left heel and midfoot with necrosis of bone; I13.0 Hypertensive heart and chronic kidney disease with heart failure and stage 1 through stage 4 chronic kidney disease, or unspecified chronic kidney disease; E87.20 Acidosis, unspecified; E87.1 Hypo-osmolality and hyponatremia; I45.2 Bifascicular block; F05 Delirium due to known physiological condition; M86.172 Other acute osteomyelitis, left ankle and foot; I5A Non-ischemic myocardial injury (non-traumatic); Z66 Do not resuscitate; N18.32 Chronic kidney disease, stage 3b; Y83.8 Other surgical procedures as the cause of abnormal reaction of the patient, or of later complication, without mention of misadventure at the time of the procedure; J44.89 Other specified chronic obstructive pulmonary disease; E11.621 Type 2 diabetes mellitus with foot ulcer; I48.0 Paroxysmal atrial fibrillation; D50.9 Iron deficiency anemia, unspecified; E66.813 Obesity, class 3; E78.00 Pure hypercholesterolemia, unspecified; E11.69 Type 2 diabetes mellitus with other specified complication; D63.1 Anemia in chronic kidney disease; I25.10 Atherosclerotic heart disease of native coronary artery without angina pectoris; I25.5 Ischemic cardiomyopathy; G47.33 Obstructive sleep apnea (adult) (pediatric); E11.65 Type 2 diabetes mellitus with hyperglycemia; M19.072 Primary osteoarthritis, left ankle and foot; K21.9 Gastro-esophageal reflux disease without esophagitis; G89.29 Other chronic pain; E11.22 Type 2 diabetes mellitus with diabetic chronic kidney disease; E11.628 Type 2 diabetes mellitus with other skin complications; E86.1 Hypovolemia; K58.9 Irritable bowel syndrome, unspecified; M48.00 Spinal stenosis, site unspecified; I25.2 Old myocardial infarction; Z11.52 Encounter for screening for COVID-19; Z68.33 Body mass index [BMI] 33.0-33.9, adult; Z79.01 Long term (current) use of anticoagulants; Z78.1 Physical restraint status; Z79.82 Long term (current) use of aspirin; Z79.4 Long term (current) use of insulin; Z79.899 Other long term (current) drug therapy; Z86.73 Personal history of transient ischemic attack (TIA), and cerebral infarction without residual deficits; Z87.891 Personal history of nicotine dependence; Z95.820 Peripheral vascular angioplasty status with implants and grafts; Z95.5 Presence of coronary angioplasty implant and graft; Z91.198 Patient's noncompliance with other medical treatment and regimen for other reason
CPT/HCPCS: 88307; 88311; 93308; 11044; 27880; 36600; 70450; 70496; 70498; 71045; 71046; 71275; 73630; 74018; 76604; 80048; 80053; 80202; 81003; 81015; 82248; 82330; 82570; 82607; 82728; 82746; 82805; 82962; 83036; 83540; 83550; 83605; 83735; 83880; 84100; 84132; 84300; 84302; 84478; 84484; 85025; 85027; 85610; 85652; 85730; 86140; 86850; 86900; 86901; 87040; 87070; 87147; 87176; 87186; 87205; 87324; 87449; 87798; 87811; 92526; 92610; 93005; 93321; 93325; 93922; 93925; 94002; 94003; 94660; 96365; 97110; 97112; 97163; 97164; 97167; 97168; 97530; 97535; 99285; Q9950; Q9967